=== PATIENT | female | born 1935 | race Caucasian/White ===

== ENCOUNTER 2018-01-08 09:53 | Outpatient (CLI) | payer MEDICARE, OTHER, SELFPAY ==
[2018-01-08 13:12] LABS: Bilirubin Negative (Negative); Blood Negative (Negative); Clarity Clear; Glucose Negative (Negative); Ketones Negative (Negative); Leukocyte Esterase Trace (Negative); Nitrite Positive (Negative); Specific Gravity 1.015 (1.005-1.025); Urobilinogen 0.2 EU/dL (Up TO 0.2)
[2018-01-08 13:21] LABS: Bacteria Moderate HPF (Negative); C & S Indicated? Yes; Casts Negative LPF (Negative); Crystals Negative HPF (Negative); Epithelial Cells Rare HPF (Negative); Mucus Negative (Negative); Other Cells Few Transitional (Negative); RBC Negative (0-2); WBC 20-50 HPF (0-5)
[2018-01-08 13:34] LABS: Anion Gap 7.5 mmol/L (3-11); BUN 20 mg/dL (7-18); CO2 30.5 mmol/L (21.0-32.0); CREATININE 0.94 mg/dL (0.55-1.02); Calcium 8.8 mg/dL (8.5-10.1); Chloride 102 mmol/L (98-107); Cholesterol 187 mg/dL (50-200); Glucose 70 mg/dL (70-100); HDL Cholesterol 53 mg/dL (40-60); LDL CHOLESTEROL 122 mg/dL (<100); Potassium 4.3 mmol/L (3.5-5.1); Sodium 140 mmol/L (136-145); Triglyceride 74 mg/dL (30-150)
== END 2018-01-08 10:13 ==
PROVIDERS: PCP Family Medicine; Visit Provider Family Medicine
DX: I10 Essential (primary) hypertension (principal); N39.46 Mixed incontinence
CPT/HCPCS: 36415; 80048; 80061; 83721; 87077; 81003; 81015; 87086; 87186

== ENCOUNTER 2018-05-05 20:22 | Outpatient (REF) | payer MEDICARE, OTHER, SELFPAY ==
[2018-05-05 20:42] LABS: Bilirubin Negative (Negative); Blood Negative (Negative); Clarity Clear; Glucose Negative (Negative); Ketones Trace mg/dL (Negative); Leukocyte Esterase Large (Negative); Nitrite Negative (Negative); Specific Gravity 1.015 (1.005-1.025); Urobilinogen 0.2 EU/dL (Up TO 0.2); pH 5.5 (5-8)
[2018-05-05 22:32] LABS: WBC >50 HPF (0-5)
[2018-05-05 22:33] LABS: Bacteria Many HPF (Negative); C & S Indicated? Yes; Casts Negative LPF (Negative); Crystals Negative HPF (Negative); Epithelial Cells Negative HPF (Negative); Mucus Negative (Negative)
== END 2018-05-05 20:42 ==
LOC: LBN 20:22
PROVIDERS: PCP Family Medicine
DX: N39.0 Urinary tract infection, site not specified (principal)
CPT/HCPCS: 87077; 81003; 81015; 87086; 87186

== ENCOUNTER 2018-07-08 11:26 | Outpatient (REF) | payer MEDICARE, OTHER, SELFPAY | END 2018-07-08 11:46 | LOC: LBN 11:26 | PROVIDERS: PCP Family Medicine; Visit Provider Family Medicine | DX: R30.0 Dysuria (principal) | CPT/HCPCS: 87077; 87086; 87186 ==

== ENCOUNTER → 2018-09-04 12:32 | Outpatient (BNVA) | payer MEDICARE, OTHER, SELFPAY | PROVIDERS: PCP Family Medicine; Referring Provider Family Medicine; Visit Provider Urology | DX: I10 Essential (primary) hypertension (principal); N36.42 Intrinsic sphincter deficiency (ISD); Z87.440 Personal history of urinary (tract) infections; J44.9 Chronic obstructive pulmonary disease, unspecified | CPT/HCPCS: 99213 ==

== ENCOUNTER 2018-09-10 10:00 | Day surgery (SDC) | payer MEDICARE, OTHER, SELFPAY ==
[2018-09-10 10:20] VITALS: BP 118/60; PULSE 63; RESP 16; TEMP 36.5; O2SAT 95
[2018-09-10] MEDS: Sulfameth/Trimeth DS TAB 1 TAB PO (10:37)
[2018-09-10] MEDS: Lactated Ringers 1,000 ML 80 ML IV (10:46)
--- NOTE | 2018-09-10 12:19 | W.PM.DSUDISC ---
Discharge Plan Disposition Patient Disposition: HOME Condition: Stable Discharge Details Attending Provider: Ankit Triplett Primary Care Provider: Sana Camejo Home Meds and New Rx's Prescriptions: No Action simvastatin 5 mg tablet 5 mg PO DAILY Qty: 90 RF: 3 albuterol sulfate 90 mcg/actuation HFA aerosol inhaler 1 - 2 inh IH Q6H PRN (Reason: shortness of breath or wheezing) Qty: 8.5 RF: 0 metoprolol tartrate 50 MG tablet 50 mg PO BID Qty: 180 RF: 4 PreserVision AREDS 1 TAB tablet 1 tab PO BID RF: 0 Discharge Instructions Additional Instructions: No F/U appt to schedule but ask pt to call my office @ 1 week to give us a progress report Activity:: Activity as Tolerated Shower/Bathe:: 24 hours Diet:: As Tolerated Discharge Orders Discharge Orders: Discharge Order (Routine); Ordered 09/10/18 Ordered By: Ankit Triplett DS: Diagnosis Discharge Diagnosis (1) Intrinsic sphincter deficiency: Status: Acute
[2018-09-10 14:05] VITALS: BP 116/56; PULSE 62; RESP 22; TEMP 36.4; O2SAT 96
--- NOTE | 2018-09-11 06:55 | ROE_ITS ---
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 PROCEDURE Cystoscopy, transurethral injection of Coaptite. SURGEON Ankit Triplett M.D. ANESTHESIA MAC with local. COMPLICATIONS None. HISTORY This is an 83-year-old woman who has a long history of urinary incontinence. She has had a workup at [facility] previously and was identified as having intrinsic sphincter deficiency. She has had one inj ection of a bulking agent previously. She presents now for repeat injection. DESCRIPTION OF PROCEDURE The patient was brought to the Operating Room on 09/10/18. She was given oral antibiotics, which was t hen followed by Monitored Anesthesia Care. She was placed in the dorsal lithotomy position. Her genit derek was prepped and draped. A #20-Maur[place] urethrotome sheath was passed through the urethra into the bladder. The bladder neck was entered using a transurethral injection system. We injected one vial of Coaptite submucosally. This appeared to result in excellent coaptation of the bladder neck mucosa. The bladder was drained using a straight catheter. The patient tolerated the procedure well with no c omplications.
== END 2018-09-10 14:26 | disposition home or self-care (01) ==
PROVIDERS: PCP Family Medicine; Visit Provider Urology
PROC: (CPT 51715; principal; 2018-09-10 12:00)
DX: N36.42 Intrinsic sphincter deficiency (ISD) (principal); N39.498 Other specified urinary incontinence; I10 Essential (primary) hypertension
CPT/HCPCS: 51715; L8606

== ENCOUNTER → 2018-09-15 14:14 | Outpatient (BNVA) | payer MEDICARE, OTHER, SELFPAY | PROVIDERS: PCP Family Medicine; Visit Provider Urology | DX: N36.42 Intrinsic sphincter deficiency (ISD) (principal); Z98.890 Other specified postprocedural states; I10 Essential (primary) hypertension | CPT/HCPCS: 51798; 99212; 99213 ==

== ENCOUNTER 2019-01-05 18:53 | Outpatient (REF) | payer MEDICARE, OTHER, SELFPAY ==
[2019-01-05 20:24] LABS: Bilirubin Negative (Negative); Blood Trace-intact (Negative); Clarity Cloudy (Clear); Glucose Negative (Negative); Ketones Negative (Negative); Leukocyte Esterase Large (Negative); Nitrite Positive (Negative); Specific Gravity <= 1.005 (1.005-1.025); Urobilinogen 0.2 EU/dL (Up TO 0.2); pH 6.5 (5-8)
[2019-01-05 21:40] LABS: Bacteria Many HPF (Negative); C & S Indicated? Yes; Casts Negative LPF (Negative); Crystals Negative HPF (Negative); Epithelial Cells Negative HPF (Negative); Mucus Negative (Negative); RBC Negative (0-2); WBC >50 HPF (0-5)
== END 2019-01-05 19:13 ==
LOC: LBN 18:53
PROVIDERS: PCP Family Medicine
DX: R30.0 Dysuria (principal)
CPT/HCPCS: 87077; 81003; 81015; 87086; 87186

== ENCOUNTER 2019-01-14 07:00 | Outpatient (CLI) | payer MEDICARE, OTHER, SELFPAY ==
[2019-01-14 13:20] LABS: ALT 33 U/L (14-59); AST 20 U/L (15-37); Albumin 3.8 g/dL (3.4-5.0); Alkaline Phosphatase 128 U/L (46-116); Anion Gap 6.4 mmol/L (3-11); BUN 26 mg/dL (7-18); Bilirubin, Total 0.3 mg/dL (0.2-1.0); CO2 30.6 mmol/L (21.0-32.0); CREATININE 1.17 mg/dL (0.55-1.02); Calcium 9.3 mg/dL (8.5-10.1); Chloride 100 mmol/L (98-107); Glucose 87 mg/dL (70-100); Potassium 5.9 mmol/L (3.5-5.1); Sodium 137 mmol/L (136-145); Total Protein 7.1 g/dL (6.4-8.2)
== END 2019-01-14 07:20 ==
PROVIDERS: PCP Family Medicine; Visit Provider Family Medicine
DX: I10 Essential (primary) hypertension (principal)
CPT/HCPCS: 36415; 80053

== ENCOUNTER 2019-02-01 08:12 | Outpatient (CLI) | payer MEDICARE, OTHER, SELFPAY ==
[2019-02-01 12:55] LABS: ALT 30 U/L (14-59); AST 22 U/L (15-37); Albumin 3.6 g/dL (3.4-5.0); Alkaline Phosphatase 117 U/L (46-116); Anion Gap 7.3 mmol/L (3-11); BUN 21 mg/dL (7-18); Bilirubin, Total 0.5 mg/dL (0.2-1.0); CO2 30.7 mmol/L (21.0-32.0); Calcium 8.8 mg/dL (8.5-10.1); Chloride 104 mmol/L (98-107); Estimated GFR 53.21 (mL/min/1.73m2); Glucose 150 mg/dL (70-100); Potassium 4.7 mmol/L (3.5-5.1); Sodium 142 mmol/L (136-145); Total Protein 6.6 g/dL (6.4-8.2)
== END 2019-02-01 08:32 ==
PROVIDERS: PCP Family Medicine; Visit Provider Family Medicine
DX: E87.5 Hyperkalemia (principal)
CPT/HCPCS: 36415; 80053

== ENCOUNTER 2019-06-21 18:11 | Emergency (ER) | payer MEDICARE, OTHER, SELFPAY ==
[2019-06-21 18:13] VITALS: BP 163/80; PULSE 78; RESP 18; TEMP 36.9; O2SAT 96
--- NOTE | 2019-06-21 18:30 | DI.CT_ITS ---
EXAM: CT CHEST/ABD/PEL W CLINICAL HISTORY: epigastric and abd pain, pain after eating, nausea COMPARISON: ABD PELVIS WITH CONTRAST from 12/24/2016 FINDINGS: CT examination of the chest, abdomen, and pelvis was performed with intravenous infusion of 100 cc of Omnipaque 350. Note is made of metallic fixation apparatus of the pubic rami. There has been a jessie or cholecystectomy. The lungs show small focal areas of atelectasis or scarring. Small nonspecific areas of tree in bud opacity in the right lung base, of uncertain etiology. No focal consolidation. No pleural effusion. No evidence of pulmonary embolic disease. Thoracic aorta shows no evidence of dissection or aneury sm. Tracheobronchial tree appears intact. No mediastinal or hilar adenopathy. Liver is unremarkable in appearance. Slight prominence of bile ducts consistent with prior cholecyst ectomy. Unremarkable appearance of the pancreas. Incidental superior pole splenic cyst noted. Incidental small left renal cyst noted. No evidence of urinary tract calcification or obstruction. Unremarkable appearance of the adrenals. Abdominal aorta is of normal diameter. There is calcified atheromatous plaque. 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 SMA and renal arteries grossly unremarkable. OLIVIA appears patent. No abdominal or pelvic adenopathy. Appendix is normal. No evidence of bowel obstruction or divertic ulitis. IMPRESSION: No evidence of acute process. Minimal tree-in-bud opacities right lung base, minimal acute pneumonia not excluded but no gross consolidation seen. Please correlate clinically.
[2019-06-21] MEDS: Normal Saline Flush 10 ML SYR IVP (18:40)
[2019-06-21 18:52] LABS: Bilirubin Negative (Negative); Blood Negative (Negative); Clarity Clear (Clear); Glucose Negative (Negative); Ketones Negative (Negative); Leukocyte Esterase Trace (Negative); Nitrite Negative (Negative); Urobilinogen 0.2 EU/dL (Up TO 0.2); pH 5.5 (5-8)
[2019-06-21] MEDS: Normal Saline 1,000 ML 1000 ML IV (18:55)
[2019-06-21 18:56] LABS: Bacteria Negative HPF (Negative); C & S Indicated? Yes; Casts Negative LPF (Negative); Crystals Negative HPF (Negative); Epithelial Cells Negative HPF (Negative); Mucus Negative (Negative); Other Cells Few Renal (Negative); RBC Negative HPF (0-2)
[2019-06-21] MEDS: Ondansetron 4 MG/2 ML VIAL IVP (18:59)
[2019-06-21 19:07] LABS: Abs Immature Grans 0.02 k/cumm (0.0-0.09); Absolute Basophil Count 0.02 k/cumm (0.0-0.2); Absolute Eosinophil Count 0.02 k/cumm (0.0-0.7); Absolute Lymphocyte Count 1.56 k/cumm (1.2-3.4); Absolute Monocyte Count 0.84 k/cumm (0.11-0.7); Absolute Neutrophil Count 5.16 k/cumm (1.2-6.7); Basophils % 0.3; Eosinophils % 0.3; HCT 39.2 % (36.0-46.0); HGB 13.5 g/dL (12.0-15.5); Immature Grans % 0.3 %; Lymphocytes % 20.5; Mean Corp. HGB Concentration 34.4 g/dL (32.0-36.0); Mean Corpuscular Hemoglobin 30.7 pg (27.0-33.0); Mean Corpuscular Volume 89.1 fL (80-95); Mean Platelet Volume 11.4 fL (8.0-11.0); Neutrophils % 67.6; Platelet Count 185 x1000/uL (130-400); RBC Distribution Width 12.4 % (11.7-14.6); White Blood Cell Count 7.62 k/cumm (4.4-10.8)
[2019-06-21 19:20] LABS: ALT 30 U/L (14-59); AST 26 U/L (15-37); Albumin 4.2 g/dL (3.4-5.0); Alkaline Phosphatase 114 U/L (46-116); Anion Gap 7.1 mmol/L (3-11); BUN 12 mg/dL (7-18); Bilirubin, Total 0.7 mg/dL (0.2-1.0); CO2 28.9 mmol/L (21.0-32.0); Calcium 9.2 mg/dL (8.5-10.1); Chloride 94 mmol/L (98-107); Estimated GFR 53.08 (mL/min/1.73m2); Glucose 93 mg/dL (74-106); Lipase 247 U/L (73-393); Potassium 4.2 mmol/L (3.5-5.1); Sodium 130 mmol/L (136-145); Total Protein 7.6 g/dL (6.4-8.2)
[2019-06-21 19:21] LABS: Troponin I < 0.05 ng/Ml (<0.06)
--- NOTE | 2019-06-21 19:25 | W.ED.GENAD ---
Discharge Plan Disposition Patient Disposition: HOME Condition: Stable Discharge Details Chief Complaint: Abd Prob Clinical Impression: Nausea, Hyponatremia, Enteritis Primary Care Provider: Sana Camejo ED Provider: Azalia Moore Home Meds and New Rx's Prescriptions: New sucralfate [Carafate] 1 gram tablet 1 gm PO BID Qty: 20 RF: 0 No Action simvastatin 5 mg tablet 5 mg PO DAILY Qty: 90 RF: 3 acetaminophen 325 mg tablet 325 - 650 mg PO Q4H PRN (Reason: fever or pain) Qty: 90 RF: 1 polyethylene glycol 3350 [Miralax] 17 gram/dose powder 17 gm PO DAILY PRN (Reason: constipation) Qty: 238 RF: 2 albuterol sulfate 90 mcg/actuation HFA aerosol inhaler 1 - 2 inh IH Q6H PRN (Reason: shortness of breath or wheezing) Qty: 8.5 RF: 6 omeprazole 40 mg capsule,delayed release(DR/EC) 40 mg PO DAILY Qty: 30 RF: 1 ondansetron HCl 4 mg tablet 4 mg PO Q8H PRN (Reason: nausea and vomiting) Qty: 10 RF: 0 metoprolol tartrate 50 mg tablet 50 mg PO BID Qty: 180 RF: 4 PreserVision AREDS 1 TAB tablet 1 tab PO BID RF: 0 sucralfate 1 gram Tablet 1 g PO BID RF: 0 magnesium 30 mg Tablet 40 mg PO DAILY RF: 0 Discharge Instructions Instructions: Hyponatremia (ED), Abdominal Pain (ED) Additional Instructions: Follow-up with your primary care doctor for recheck this week. Please follow-up with your sodium abnormalities in your labs, which will require repeat labs. Follow-up with your CT abnormalities which are incidental. Continue your omeprazole. Continue your nausea medication. Add Carafate twice daily as discussed. You may require additional outpatient testing as discussed. Return to the emergency room for any alarming symptoms, worsening or concerns sooner if needed Referrals: Manda Pichardo MD [ [facility] STAFF PHYSICIAN] - Medical Decision Making This is a pleasant 84-year-old patient presenting for complaints of abdominal pain. Patient reports increasing abdominal pain last few days. Patient reports sensation of early satiety. Patient reports mild discomfort after eating. Patient denies any obvious change her bowels however has not moved her bowels in the last 2 days. Patient reports this is not totally typical of her pattern sometimes she will move her bowels 2-3 times a day than others times she will go a few days between movements. Patient denies any diarrhea. Patient does report dry heaving frequently for the last 2 weeks. Patient denies any obvious pattern to timing of dry heaving or association with eating. Patient denies active vomiting. Patient does report baseline nausea which she has been taking Zofran prescribed by PCP for which has been on relieving of her nausea. Patient denies any headache or dizziness. She does report vague malaise and a shaky sensation but denies obvious chills or fever. Patient denies any focal weakness. Patient denies focal chest or back pain. Denies any shortness of breath or difficulty breathing. She does report a history of COPD which has been well controlled recently. Denies any new cough. No upper respiratory symptoms. Patient does report hesitancy with urination. She does not report a strong urinary stream but a trickling stream but denies dysuria, urgency or hematuria. Patient denies any other concerns or complaints at this time. Patient reports symptoms have been insidious in the last few weeks. Patient did report waking at night with tremors she describes as a shaking but no associated sweating or fever. Patient's family called prior to arrival for concern of bowel obstruction. On physical exam patient does appear well-hydrated. Is in no apparent distress at this time. Breath sounds are clear, cardiac evaluation unremarkable. No distal edema present. Patient's respiratory effort is easy and unlabored. On exam patient does have mild epigastric as well as suprapubic and left-sided abdominal pain with palpation. No obvious peritoneal signs, rebound or guarding. Given patient's complaints of sensation of early satiety after eating and onset of pain after eating will check CT chest abdomen and pelvis. Will check baseline labs in addition to troponin given patient's epigastric complaints. We will plan to hydrate patient with 1 L of fluid. Will check urinalysis. Patient declines any pain medication needs at this time. Will reassess. EKG reveals a heart rate of 65, sinus rhythm. No obvious ST segment changes. Seems unchanged compared to previous on 12/23/[address] Meeyrs Labs reviewed. Patient's white blood cell count is normal. Patient does have mild hyponatremia noted at 130. This is somewhat decreased from her baseline. The remainder of patient's electrolytes are unremarkable. Patient has no gait disturbances, no recent falls, no concentration difficulties or cognitive deficit patient has no confusion or headache. I doubt patient's nausea is the result of hyponatremia however will recommend she follow-up with her PCP for repeat labs, as this is a change from her baseline. Patient's kidney function remains normal. Patient has a steady gait, ambulated from the bed multiple times to use the bathroom. Patient ports urinating without difficulty at this time. Patient's urinalysis reveals trace leukocyte esterase. Culture indicated. Renal cells were noted. Patient CT reveals areas of atelectasis suggested bilaterally. Minor tree-in-bud type infiltrative change in the central aspect of the right lower lobe. Nonspecific 2 mm nodule as well as a subpleural nodule present reported as subpleural rounded granulomatous type. Cardiomegaly. Old rib fractures. Small bowel pattern suggesting mild enteritis. No mechanical obstruction. Diverticulosis without evidence of acute diverticulitis. Previous hysterectomy and cholecystectomy. Degenerative lumbar changes. Atherosclerotic abdominal aorta without aneurysmal change or significant mesenteric arterial stenosis. These findings were discussed with patient. We did discuss the potential for antibiotic treatment for the tree-in-bud finding on the right lung however patient has no cough, shortness of breath, chest pain or fever and does not feel antibiotic is warranted at this time. Would prefer follow-up with PCP. Patient's vital signs reviewed. Blood pressure 141/66, heart rate O2 saturation respiratory rate and temperature normal. Checked on the patient and she was comfortably laying in bed reading a book. Discussed discharge planning with the patient. We discussed patient's results, possibility of enteritis, mild hyponatremia, plan for follow-up with PCP. Patient's predominant complaints in the emergency room tomorrow nausea, upper abdominal pain. Patient does report she has had a colonoscopy [address] Pichardo locally she had multiple cancerous polyps removed. Patient reports she did discuss the abdominal pain and nausea with her PCP and they did begin omeprazole this week. I reviewed patient's medication list and she no longer has sucralfate which she was previously taking. I will replace this prescription tonight. We discussed the possibility of need for upper endoscopy as an outpatient for further evaluation of your upper abdominal complaints. Enteritis possible viral causes recently a possible etiology of patient's symptoms. I have encouraged patient to promptly follow-up with your PCP for reevaluation, repeat lab work and coordinate further outpatient evaluation including possible EGD to identify further causes of her nausea and upper abdominal pain. Patient agrees with this plan of care. We did at length discussed signs and symptoms for which she should return. Patient reports her understanding. Patient again mentioned the tremor she noted at night. Will add blood cultures to be sure there is no other source of infection however patient has been afebrile in the emergency room and has no elevation of her white blood cell count therefore I feel this is unlikely. Patient does not appear septic or ill at this time. Patient agrees with plan of outpatient management of her symptoms and does not feel she needs admission to the hospital at this time. Would prefer to return for any worsening of her symptoms or alarming symptoms. I agree with this plan of care. The patient was stable and requested discharge. Prior to discharge, my usual and customary return precautions were reviewed with the patient - this included follow-up instructions and reasons to return to the Emergency Department if conditions worsens, does not improve as expected, or other new concerns arise. HPI General Date/Time Provider Initiated Documentation: 06/21/19 18:13. HPI Narrative: This is an 84-year-old patient presenting for complaints of epigastric and abdominal pain. Patient reports for the last several weeks she has had discomfort after eating. Patient reports worse in the last few days. Patient reports epigastric discomfort and mild lower abdominal pain intermittently. Patient reports approximately 2 weeks of dry heaving intermittently. No obvious pattern recognizable to the timing of her dry heaving. Patient denies active vomiting. Patient does report when she swallows food thereafter she notes increased abdominal pain however she denies any regurgitation of food. Patient does report persistent nausea despite use of nausea medication provided by PCP. Patient denies obvious headache or dizziness. Patient does report mild weakness and feeling of shakiness. Patient denies any obvious blood with bowel movements. Patient reports no BM in 2 days. Patient reports this is not totally typical of her pattern. Patient does report hesitancy with urination and a trickling stream of urine. Denies any obvious urgency, frequency or dysuria. Patient denies any back pain. Patient denies any cough or shortness of breath. Denies any measured fevers or chills. Patient's family called concerned with the possibility of a bowel obstruction. Related Data Home Medications Medication Instructions Recorded Confirmed PreserVision AREDS 1 tab PO BID 05/25/12 06/21/19 simvastatin 5 mg tablet 5 mg PO DAILY #90 tab-cap 07/08/18 06/21/19 metoprolol tartrate 50 mg tablet 50 mg PO BID #180 tab-cap 12/30/18 06/21/19 albuterol sulfate 90 mcg/actuation 1 - 2 inh IH Q6H PRN #8.5 gm 01/14/19 06/21/19 aerosol inhaler acetaminophen 325 mg tablet 325 - 650 mg PO Q4H PRN #90 tab 03/04/19 06/21/19 omeprazole 40 mg capsule,delayed 40 mg PO DAILY #30 cap 06/14/19 06/14/19 release ondansetron HCl 4 mg tablet 4 mg PO Q8H PRN #10 tab 06/14/19 06/21/19 polyethylene glycol 3350 17 17 gm PO DAILY PRN #238 gm 06/18/19 06/21/19 gram/dose oral powder magnesium 40 mg PO DAILY 06/21/19 06/21/19 sucralfate 1 g PO BID 06/21/19 06/21/19 sucralfate [Carafate] 1 gm PO BID #20 tab 06/21/19 Previous Rx's Medication Instructions Recorded simvastatin 5 mg tablet 5 mg PO DAILY #90 tab-cap 07/08/18 metoprolol tartrate 50 mg tablet 50 mg PO BID #180 tab-cap 12/30/18 albuterol sulfate 90 mcg/actuation 1 - 2 inh IH Q6H PRN #8.5 gm 01/14/19 aerosol inhaler acetaminophen 325 mg tablet 325 - 650 mg PO Q4H PRN #90 tab 03/04/19 omeprazole 40 mg capsule,delayed 40 mg PO DAILY #30 cap 06/14/19 release ondansetron HCl 4 mg tablet 4 mg PO Q8H PRN #10 tab 06/14/19 polyethylene glycol 3350 17 17 gm PO DAILY PRN #238 gm 06/18/19 gram/dose oral powder sucralfate [Carafate] 1 gm PO BID #20 tab 06/21/19 Allergies Allergy/AdvReac Type Severity Reaction Status Date / Time ciprofloxacin [From Cipro] Allergy Intermediate Lips and Verified 12/19/19 10:23 face burn, feels shaky, arm tingly codeine AdvReac Intermediate Dizziness/L Verified 03/04/19 10:23 ightheade lovastatin AdvReac Intermediate myalgias Verified 03/04/19 10:23 oxycodone AdvReac Intermediate NAUSEA, GI Verified 03/04/19 10:23 UPSET azithromycin AdvReac cramping, Verified 06/21/19 19:01 anorexia doxycycline AdvReac Nausea, Verified 06/21/19 19:01 Vomiting hydrocodone AdvReac unknown Verified 06/21/19 19:01 General Stated Complaint: Abd Prob MELINDA: 3 Review of Systems All systems reviewed & are unremarkable except as noted in HPI and below Constitutional Constitutional: Denies chills, Reports fatigue, Denies fever(s), Denies headache(s) and Reports malaise ENT Ears, Nose, Mouth, and Throat: Denies headache(s), Denies nasal obstruction, Denies neck pain, Denies sinus pain, Denies sinus pressure and Denies sore throat Cardiovascular Cardiovascular: Denies chest pain, Denies rapid heart rate, Denies palpitations and Denies dyspnea Respiratory Respiratory: Denies cough, Denies dyspnea and Denies wheezing Gastrointestinal Gastrointestinal: Reports abdominal pain, Denies bloating, Reports constipation (x2 days), Denies excessive flatus, Denies diarrhea, Reports nausea and Denies vomiting Genitourinary Genitourinary: Denies hematuria, Denies dysuria, Reports urinary hesitancy and Denies urinary urgency Musculoskeletal Musculoskeletal: Denies back pain, Denies neck pain, Denies numbness and Denies tingling Neurologic Neurologic: Denies headache(s), Denies numbness and Denies tingling Endocrine Endocrine: Reports fatigue and Denies palpitations Allergic/Immunologic Allergic/Immunologic: Denies wheezing [facility] Medical History Atrophic vaginitis (Acute 08/19/11) Pt. states she is unsure Depression Essential hypertension Family history of GI malignancy GERD (gastroesophageal reflux disease) Hx of fracture of pelvis (Acute) pt. states she shattered her pelvis in 1970's Hyperlipidemia Macular degeneration (Acute) Mixed incontinence (Acute 08/19/11) [facility] [place] pessary Surgical History Abdominal hysterectomy Arthroplasty of knee (05/27/12) LEFT - Pt denies knee replacement Bilateral salpingectomy with oophorectomy Bladder Surgery Cholecystectomy Colonoscopy - MAC (~02/2012) Colonoscopy - MAC (04/22/17) EGD - MAC (04/22/17) KNEE SURGERY (~05/2012) Family History (Updated 01/20/19 @ 10:51 by Skyler Swann) Mother , AGE 84 Heart disease Father , AGE 87 Stroke Heart disease Cancer Sister Stroke Brother Alcohol abuse Cancer Brother Cancer of kidney Son Hyperlipidemia Pulmonary disease Daughter Thyroid disease Daughter Cancer s/p hysterectomy Daughter No problems noted. Daughter No problems noted. Brother No problems noted. Maternal Grandfather No problems noted. Paternal Grandfather No problems noted. Maternal Grandmother No problems noted. Paternal Grandfather No problems noted. Social History Smoking/Tobacco Use Status: Former Tobacco Use Quit Date: 03/17/97 Second Hand Exposure: Yes Alcohol Intake: never Drug use: Never Substance use type: does not use Caregiver/Support person: No Household members: none Housing: house Communication Needs: Hard of Hearing and Corrective Lenses Pets and animals: Yes Pets and animals: dog(s) Sexually active: No Do you think of yourself as: straight/heterosexual Current gender identity: female What is your relationship status?: How often do you talk on the phone with friends or family?: decline to answer How often do you get together with friends or relatives?: decline to answer How often do you attend shinto or anabaptism services?: decline to answer Do you belong to any clubs or organized social groups?: decline to answer Panel score (0-1 are the most socially isolated patients): 0 What type of physical activity do you participate in: none Frequency: does not exercise Carri/Restorationist: Buddhist Special carri needs: No Seatbelt use: always Helmet use: No 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 Well hydrated. Alert and oriented. HENMT: Head nomocephalic, normal to inspection. Atraumatic. Hearing grossly normal. External ear canal no erythema or swelling. TM normal bilaterally. Nose normal to inspection. No rhinnorhea. Normal facial exam. Oral mucosa normal. Tounge normal. Dentition normal. Normal posterior oropharynx. Uvula midline. EYES: General normal appearance. Alignment normal. Eyelids normal. Conjunctiva normal. Sclera normal. PERRL. NECK: Normal visual inspection. FROM. No lymphadenopathy. Trachea midline. No Midline tenderness. CHEST: Normal insepection of the chest. RESP: Normal respiratory effort. Speaking full sentences. No cough. No wheezing. No retractions. Clear to auscaltation. Breath sound equal and present bilaterally. CARDIO: No JVD. Normal PMI. Regular Rate. Regular Rhythm. Normal peripheral pulses. GI: Normal inspection of abdomen. No distension. Soft. Mild epigastric discomfort. Mild suprapubic discomfort as well as left lower quadrant pain with palpation. Bowel sounds present in all 4 quadrants. No rebound. No gaurding. MUSCULOSKELETAL: Normal Gait. FROM of all extremities. Distal neurovascularly intact. Sensation intact distally. No lower leg edema SKIN: Normal. Dry. No rashes. NEURO: Alert and awake. Speech clear. PSYCH: Normal affect. Cooperative. Course Vital Signs Vital signs: Vital Signs Temperature 36.9 C 06/21/19 18:13 Pulse 78 06/21/19 18:13 Respiratory Rate 18 06/21/19 18:13 Blood Pressure 163/80 H 06/21/19 18:13 Pulse Oximetry 96 06/21/19 18:13 Temperature 36.9 C 06/21/19 18:13 Temperature Source Skin 06/21/19 18:13 Pulse 78 06/21/19 18:13 Respiratory Rate 18 06/21/19 18:13 Respiratory Effort 06/21/19 19:04 Blood Pressure 163/80 H 06/21/19 18:13 Blood Pressure Position Sitting 06/21/19 18:13 Pulse Oximetry 96 06/21/19 18:13 Oxygen Delivery Method Room Air 06/21/19 18:13 Oxygen Flow Rate 0 06/21/19 18:13 Pain Level 5 06/21/19 19:06 Lab/Test Results Lab/Test Results: 06/21/19 18:40 Urine - Reflex from Ua Urine Culture - Pending Laboratory Tests Range/Units 04/09/0306/21/19 06/21/19 18:40 18:45 18:45 WBC (4.4-10.8) k/cumm RBC (4.00-5.20) m/cumm Hgb (12.0-15.5) g/dL Hct (36.0-46.0) % MCV (80-95) fL MCH (27.0-33.0) pg MCHC (32.0-36.0) g/dL RDW (11.7-14.6) % Plt Count (130-400) x1000/uL MPV (8.0-11.0) fL Immature Gran % % Neutrophils % Lymphocytes % Monocytes % Eosinophils % Basophils % Absolute Neutrophils (1.2-6.7) k/cumm Absolute Lymphocytes (1.2-3.4) k/cumm Absolute Monocytes (0.11-0.7) k/cumm Absolute Eosinophils (0.0-0.7) k/cumm Absolute Basophils (0.0-0.2) k/cumm Sodium (136-145) mmol/L 130 L Potassium (3.5-5.1) mmol/L 4.2 Chloride (98-107) mmol/L 94 L Carbon Dioxide (21.0-32.0) mmol/L 28.9 Anion Gap (3-11) mmol/L 7.1 BUN (7-18) mg/dL 12 Creatinine (0.55-1.02) mg/dL 1.00 Estimated GFR/1.73 m2 (mL/min/1.73m2) 53.08 Glucose (74-106) mg/dL 93 Lactate (0.6-1.4) mmol/L 1.0 Calcium (8.5-10.1) mg/dL 9.2 Total Bilirubin (0.2-1.0) mg/dL 0.7 AST (15-37) U/L 26 ALT (14-59) U/L 30 Alkaline Phosphatase (46-116) U/L 114 Troponin I (<0.06) ng/Ml < 0.05 Total Protein (6.4-8.2) g/dL 7.6 Albumin (3.4-5.0) g/dL 4.2 Lipase (73-393) U/L 247 Urine Color (Yellow) Yellow Urine Clarity (Clear) Clear Urine pH (5-8) 5.5 Ur Specific [place] (1.005-1.025) 1.010 Urine Protein (Negative) mg/dL Negative Urine Ketones (Negative) mg/dL Negative Urine Blood (Negative) Negative Urine Nitrite (Negative) Negative Urine Bilirubin (Negative) Negative Urine Urobilinogen (Up TO 0.2) EU/dL 0.2 Ur Leukocyte Esterase (Negative) Trace H Urine RBC (0-2) HPF Negative Urine WBC (0-5) HPF 3-5 Ur Epithelial Cells (Negative) HPF Negative Urine Crystals (Negative) HPF Negative Urine Bacteria (Negative) HPF Negative Urine Casts (Negative) LPF Negative Urine Mucus (Negative) Negative Urine Other (Negative) Few renal Ur Culture Indicated? Yes Urine Glucose (Negative) mg/dL Negative Range/Units 06/21/19 18:45 WBC (4.4-10.8) k/cumm 7.62 RBC (4.00-5.20) m/cumm 4.40 Hgb (12.0-15.5) g/dL 13.5 Hct (36.0-46.0) % 39.2 MCV (80-95) fL 89.1 MCH (27.0-33.0) pg 30.7 MCHC (32.0-36.0) g/dL 34.4 RDW (11.7-14.6) % 12.4 Plt Count (130-400) x1000/uL 185 MPV (8.0-11.0) fL 11.4 H Immature Gran % % 0.3 Neutrophils % 67.6 Lymphocytes % 20.5 Monocytes % 11.0 Eosinophils % 0.3 Basophils % 0.3 Absolute Neutrophils (1.2-6.7) k/cumm 5.16 Absolute Lymphocytes (1.2-3.4) k/cumm 1.56 Absolute Monocytes (0.11-0.7) k/cumm 0.84 H Absolute Eosinophils (0.0-0.7) k/cumm 0.02 Absolute Basophils (0.0-0.2) k/cumm 0.02 Sodium (136-145) mmol/L Potassium (3.5-5.1) mmol/L Chloride (98-107) mmol/L Carbon Dioxide (21.0-32.0) mmol/L Anion Gap (3-11) mmol/L BUN (7-18) mg/dL Creatinine (0.55-1.02) mg/dL Estimated GFR/1.73 m2 (mL/min/1.73m2) Glucose (74-106) mg/dL Lactate (0.6-1.4) mmol/L Calcium (8.5-10.1) mg/dL Total Bilirubin (0.2-1.0) mg/dL AST (15-37) U/L ALT (14-59) U/L Alkaline Phosphatase (46-116) U/L Troponin I (<0.06) ng/Ml Total Protein (6.4-8.2) g/dL Albumin (3.4-5.0) g/dL Lipase (73-393) U/L Urine Color (Yellow) Urine Clarity (Clear) Urine pH (5-8) Ur Specific [place] (1.005-1.025) Urine Protein (Negative) mg/dL Urine Ketones (Negative) mg/dL Urine Blood (Negative) Urine Nitrite (Negative) Urine Bilirubin (Negative) Urine Urobilinogen (Up TO 0.2) EU/dL Ur Leukocyte Esterase (Negative) Urine RBC (0-2) HPF Urine WBC (0-5) HPF Ur Epithelial Cells (Negative) HPF Urine Crystals (Negative) HPF Urine Bacteria (Negative) HPF Urine Casts (Negative) LPF Urine Mucus (Negative) Urine Other (Negative) Ur Culture Indicated? Urine Glucose (Negative) mg/dL
[2019-06-21] MEDS: Omnipaque 350 MG/ML 100 ML BTL IJ (19:56)
[2019-06-21] MEDS: Normal Saline - Diluent 50 ML VIAL IV (19:57)
--- NOTE | 2019-06-21 20:32 | DI.VRAD_ITS ---
PROCEDURE INFORMATION: Exam: CT Chest With Contrast Exam date and time: 06/21/2019 6:33 PM Age: 84 years old Clinical indication: Abdominal pain; Other: Epigastric pain; Prior surgery; Patient HX: Epigastric and abd pain; Pain after eating; Nausea TECHNIQUE: Imaging protocol: Computed tomography of the chest with intravenous contrast. COMPARISON: CT ABD PELVIS WITH CONTRAST 12/24/2016 1:49 AM FINDINGS: Lungs: Mild atelectatic consolidation in the medial segment of the right middle lobe and the lingular segment of the left upper lobe. Area of scarring in the mid lateral left upper lobe. Biapical lung scarring. Mild tree-in-bud infiltrative changes in the central right lower lobe. Nonspecific 2 mm nodule in the lateral subpleural right lower lobe on series 5, image 30. Additional right lateral 5 mm subpleural nodule in the mid right upper lobe. These both appear to represent benign subpleural granulomas. Pleural space: No pleural effusion. Heart: Mild to moderate cardiomegaly. Coronary artery atherosclerotic disease. No pericardial effusion. Aorta: Unremarkable. No aortic aneurysm. Lymph nodes: Unremarkable. No enlarged lymph nodes. Bones/joints: Multiple old healed right rib fractures. Soft tissues: Unremarkable. IMPRESSION: 1. Areas of atelectatic lung features and scarring suggested bilaterally. 2. Minor tree in bud type infiltrative change in the central aspect of the right lower lobe. 3. Small right sided subpleural rounded granulomatous type nodules. 4. Cardiomegaly. Coronary artery atherosclerosis. 5. Old right rib fractures which have healed. PROCEDURE INFORMATION: Exam: CT Abdomen And Pelvis With Contrast Exam date and time: 06/21/2019 6:33 PM Age: 84 years old Clinical indication: Abdominal pain; Other: Epigastric pain; Prior surgery; Patient HX: Epigastric and abd pain; Pain after eating; Nausea TECHNIQUE: Imaging protocol: Computed tomography of the abdomen and pelvis with intravenous contrast. COMPARISON: CT ABD PELVIS WITH CONTRAST 12/24/2016 1:49 AM FINDINGS: Liver: Normal. No mass. Gallbladder and bile ducts: Previous cholecystectomy. No biliary dilatation. No choledocholithiasis. Pancreas: Normal. No ductal dilation. Spleen: Superior aspect 10 mm low-attenuation focus consistent with a cyst. This was present in 2017. . No splenomegaly. Adrenals: Nonspecific mild bilateral fullness of the adrenal limbs. This could represent adrenal hyperplasia. No distinct nodule. No mass. Kidneys and ureters: Normal. No hydronephrosis. Stomach and bowel: Mild small bowel fluid retention. No mary beth bowel edema. No dilatation or obstruction. Colonic diverticulosis without evidence of acute diverticulitis. These findings may represent enteritis. There is no mechanical obstruction or significant inflammation evident. Appendix: A normal retrocecal appendix is noted. Intraperitoneal space: Unremarkable. No free air. No significant fluid collection. Vasculature: Unremarkable. No abdominal aortic aneurysm. Lymph nodes: Unremarkable. No enlarged lymph nodes. Bladder: Unremarkable as visualized. Reproductive: Previous hysterectomy. Bones/joints: Previous pelvic pubic symphysis fusion. Old right pubic rami fractures which have healed. Degenerative lumbar spine disease. Minor degenerative L4 anterolisthesis on L5. Soft tissues: Unremarkable. IMPRESSION: 1. Small bowel pattern suggesting mild enteritis. No mechanical obstruction. 2. Colonic diverticulosis without evidence of acute diverticulitis. 3. Previous hysterectomy and cholecystectomy. 4. Degenerative lumbar spine disease. 5. Atherosclerotic abdominal aorta without aneurysmal changes or significant mesenteric arterial stenosis. 6. Previous pelvic pubic ramus fusion surgery. Dictated and Authenticated by: Michi Swan MD. Ordering:FALGUNI Vieyra MD
[2019-06-21 20:51] VITALS: BP 141/66; PULSE 72; RESP 16; TEMP 36.8; O2SAT 95
--- NOTE | 2019-06-21 21:43 | NUR.NOTE ---
referred to PCP Dr. Camejo for follow up. Sent to care management. [facility] Note:
[2019-06-21 21:44] VITALS: BP 131/61; PULSE 63; RESP 16; O2SAT 95
--- NOTE | 2019-06-22 09:27 | PDOC.ERCMPRO ---
- If Service Date Differs Date of service: 06/22/19 Time of Service: 09:27 Care Management Progress Note CM notifies [facility] of patient's visit to the ER and need for follow-up appointment.
== END 2019-06-21 22:06 | disposition home or self-care (01) ==
PROVIDERS: Emergency Provider Physician Assistant; PCP Family Medicine
DX: R11.0 Nausea (principal); E87.1 Hypo-osmolality and hyponatremia; K52.9 Noninfective gastroenteritis and colitis, unspecified; K57.90 Diverticulosis of intestine, part unspecified, without perforation or abscess without bleeding; J44.9 Chronic obstructive pulmonary disease, unspecified; Z87.891 Personal history of nicotine dependence; I10 Essential (primary) hypertension
CPT/HCPCS: 36415; 74177; 80053; 83690; 87040; 87077; 93005; 96361; 96374; 99285; 71260; 81003; 81015; 83605; 84484; 85025; 87086; 87186; 93010; 99284; J2405; J3490

== ENCOUNTER 2019-06-25 01:28 | Outpatient (CLI) | payer MEDICARE, OTHER, SELFPAY ==
[2019-06-25 11:12] LABS: ALT 31 U/L (14-59); AST 26 U/L (15-37); Albumin 3.9 g/dL (3.4-5.0); Alkaline Phosphatase 109 U/L (46-116); Anion Gap 6.4 mmol/L (3-11); BUN 9 mg/dL (7-18); Bilirubin, Total 0.5 mg/dL (0.2-1.0); CO2 30.6 mmol/L (21.0-32.0); CREATININE 1.07 mg/dL (0.55-1.02); Calcium 8.9 mg/dL (8.5-10.1); Chloride 99 mmol/L (98-107); Estimated GFR 49.09 (mL/min/1.73m2); Glucose 152 mg/dL (74-106); Potassium 4.6 mmol/L (3.5-5.1); Sodium 136 mmol/L (136-145); Total Protein 6.8 g/dL (6.4-8.2)
== END 2019-06-25 01:48 ==
PROVIDERS: PCP Family Medicine; Visit Provider Family Medicine
DX: E87.1 Hypo-osmolality and hyponatremia (principal)
CPT/HCPCS: 36415; 80053

== ENCOUNTER 2019-06-27 04:52 | Emergency (ER) | payer MEDICARE, OTHER, SELFPAY ==
[2019-06-27 04:57] VITALS: BP 170/79; PULSE 78; RESP 16; TEMP 36.5; O2SAT 96
--- NOTE | 2019-06-27 05:00 | DI.CT_ITS ---
EXAM: CT ABDOMEN PELVIS WO CLINICAL HISTORY: lower abdominal pain, nausea, dry heaving. TECHNIQUE: Imaging Protocol: Axial computed tomography images with coronal and sagittal reformatted images were created and reviewed. Oral: yes / no COMPARISON: ABD PELVIS WITH CONTRAST from 12/24/2016 CT CHEST/ABD/PEL W from 06/21/2019 FINDINGS: ABDOMEN: Lung Bases: Coronary artery calcifications are seen. The heart size is normal. There are chronic ap pearing reticulonodular densities at the lung bases, not significantly changed from 2017 exam. Liver: Normal density. No measurable mass. Gallbladder and biliary tract: Status post cholecystectomy. No biliary dilation. Pancreas: Normal density, no abnormal calcifications or inflammatory process. Spleen: Normal. Kidneys: Normal size, contour and axis. No radiodense stones or obstructive uropathy. No masses seen. There is mild bilateral prominence of the renal pelves, similar to previous exams. Adrenal glands: No masses seen. Lymph nodes: Within normal limits. Abdominal Aorta: Abdominal calcified but non-dilated. PELVIS: Bladder: Symmetric distention, no gross wall thickening. Bowel: Extensive diverticulosis, greatest in the sigmoid region. No evidence of diverticulitis. No obstruction or bowel wall thickening. Peritoneal cavity: No ascites, collection or mesenteric inflammatory response. Reproductive organs: Status post hysterectomy. Bones: Pelvic hardware creating artifact. Old pelvic fracture deformities. Bones appear osteopenic. Degenerative changes are seen in the spine. IMPRESSION: Extensive diverticulosis. No evidence of diverticulitis.. DATA REPOSITORY: All CT scans at this facility are submitted to the National Radiology Data Registry (NRDR) Dose Index Registry (DIR) with the [employer] [place] [employer] (ACR). RADIATION OPTIMIZATION: All CT scans at this facility use at least one of these dose optimization te chniques: automated exposure control; mA and/or kV adjustment per patient size (includes targeted exa ms where dose is matched to clinical indication); or iterative reconstruction.
--- NOTE | 2019-06-27 05:07 | ED.GENADUL_ITS ---
Discharge Plan Disposition Patient Disposition: HOME Condition: Good Discharge Details Chief Complaint: Abd Prob Clinical Impression: Abdominal pain Primary Care Provider: Sana Camejo ED Provider: Tom Fernández Home Meds and New Rx's Prescriptions: Continued simvastatin 5 mg tablet 5 mg PO DAILY Qty: 90 RF: 3 acetaminophen 325 mg tablet 325 - 650 mg PO Q4H PRN (Reason: fever or pain) Qty: 90 RF: 1 polyethylene glycol 3350 [Miralax] 17 gram/dose powder 17 gm PO DAILY PRN (Reason: constipation) Qty: 238 RF: 2 albuterol sulfate 90 mcg/actuation HFA aerosol inhaler 1 - 2 inh IH Q6H PRN (Reason: shortness of breath or wheezing) Qty: 8.5 RF: 6 omeprazole 40 mg capsule,delayed release(DR/EC) 40 mg PO DAILY Qty: 30 RF: 1 ondansetron HCl 4 mg tablet 4 mg PO Q8H PRN (Reason: nausea and vomiting) Qty: 10 RF: 0 metoprolol tartrate 50 mg tablet 50 mg PO BID Qty: 180 RF: 4 PreserVision AREDS 1 TAB tablet 1 tab PO BID RF: 0 sucralfate 1 gram Tablet 1 g PO BID RF: 0 magnesium 30 mg Tablet 40 mg PO DAILY RF: 0 sucralfate [Carafate] 1 gram tablet 1 gm PO BID Qty: 20 RF: 0 Discharge Instructions Instructions: Abdominal Pain (ED) Additional Instructions: At this time your CT scan shows no evidence of acute surgical pathology or emergent pathology. Your laboratory work-up is reassuring, there is no signs of concerning symptoms from your heart at this time. I recommend that you stick with a bland diet for the next few weeks, continue to take the antiacid medication from her primary care provider, follow-up closely with your primary care provider in regards to potential surgical follow-up. Please drink plenty of fluids. If you notice any worsening of your symptoms, or any new symptoms such as vomiting, diarrhea, fever, chills, shortness of breath, chest pain, numbness, weakness, or fainting , please return immediately to the emergency department for reevaluation. Please follow up with your primary care provider as soon as possible for reassessment and reevaluation. As always, it was a pleasure participating in your medical care today. Referrals: Sana Camejo MD [Primary Care Provider] - Medical Decision Making This is an 84-year-old female with a past medical history of COPD, diverticulitis, hypertension, reflux, irritable bowel syndrome, who presents today for evaluation of abdominal pain. She was here about a week ago, had similar symptoms at that time, CT scan showed enteritis but was otherwise unremarkable. She did have some mild chronic hyponatremia at that time. She states that since then she got better however it last evening the pain returned and was slightly different. She is having regular soft bowel movements, she did notice a small amount of bright red blood the other day but none before or since then. She denies any vomiting but does admit to notable dry heaving. Symptoms appear to be located in the lower abdominal region in the periumbilical region. She denies any chest pain chest tightness or shortness of breath. She denies any numbness tingling or weakness. Pain is aching in nature. She denies any other complaints at this time. No other modifying factors. Surgical history is positive for cholecystectomy and hysterectomy. Currently the patient states that her abdominal pain has resolved however on exam she is notably tender in the left lower abdominal quadrants periumbilical quadrant and mildly in the right lower abdominal quadrant. Symptoms appearing consistent with cardiac etiology. Will get screening EKG and troponin out of an abundance of precaution though. She has not been drinking much, we will gently rehydrate, get a CT scan secondary to her age and risk factors. Differential signs for diverticulitis or small bowel obstruction. Enteritis is certainly on the differential but with her symptoms and risk factors I do feel that further imaging is indicated. Will treat with Bentyl, monitor closely and reassess. 6 AM The patient's laboratory work-up is returned. No significant abnormalities. EKG and troponin normal. Laboratory work-up is unremarkable. CT scan demonstrates no evidence of significant acute process, there is some mild opacities in the right middle and right lower lobes which are likely inflammatory she has no pulmonary complaints whatsoever, urinalysis is negative for evidence of infection or blood. Mild potential enteritis versus ileus, however the patient is still having bowel movements and is now tolerating p.o. here without difficulty. On reassessment the patient continues to have no abdominal pain whatsoever, abdominal exam is now unremarkable. She no longer has any nausea or vomiting, no more dry heaving. She is feeling much better. With no clinical evidence of obstruction at this time I do feel that she can be discharged. Did recommend bland diet, continuation of her reflux medications, close follow-up with her PCP, and potential surgical evaluation. I have extensively reviewed the treatment plan and discharge instructions with the patient. I have addressed all patient concerns at this time. The patient was made aware of what symptoms to monitor for that would warrant a return to the emergency department. Discussed the plan with the patient, they demonstrate verbal understanding and agreement with our assessment and plan at this time. EKG 5: 17 Rate 63, intervals normal, sinus rhythm, no significant ST elevations or depressions, inverted T wave present in V1 and lead III, unchanged from prior EKG on 06/21/2019 IMPRESSION: Mild reticulonodular opacities in the right middle and right lower lobes which may be infectious/inflammatory Question recently passed right renal/ureteral calculus with mild residual fullness of the right renal collecting system and proximal ureter Nonspecific nonobstructed bowel gas pattern which may represent mild enteritis/ileus Colonic diverticulosis without diverticulitis Thank you for allowing us to participate in the care of your patient. Dictated and Authenticated by: Pancho Moore MD 06/27/2019 5:50 AM Eastern Time ([place] & [place]) HPI General Date/Time Provider Initiated Documentation: 06/27/19 04:53 . HPI Narrative: This is an 84-year-old female with a past medical history of COPD, diverticulitis, hypertension, reflux, irritable bowel syndrome, who presents today for evaluation of abdominal pain. She was here about a week ago, had similar symptoms at that time, CT scan showed enteritis but was otherwise unremarkable. She did have some mild chronic hyponatremia at that time. She states that since then she got better however it last evening the pain returned and was slightly different. She is having regular soft bowel movements, she did notice a small amount of bright red blood the other day but none before or since then. She denies any vomiting but does admit to notable dry heaving. Symptoms appear to be located in the lower abdominal region in the periumbilical region. She denies any chest pain chest tightness or shortness of breath. She denies any numbness tingling or weakness. Pain is aching in nature. She denies any other complaints at this time. No other modifying factors. Surgical history is positive for cholecystectomy and hysterectomy Related Data Home Medications Medication Instructions Recorded Confirmed PreserVision AREDS 1 tab PO BID 05/25/12 06/27/19 simvastatin 5 mg tablet 5 mg PO DAILY #90 tab-cap 07/08/18 06/27/19 metoprolol tartrate 50 mg tablet 50 mg PO BID #180 tab-cap 12/30/18 06/27/19 albuterol sulfate 90 mcg/actuation 1 - 2 inh IH Q6H PRN #8.5 gm 01/14/19 06/27/19 aerosol inhaler acetaminophen 325 mg tablet 325 - 650 mg PO Q4H PRN #90 tab 03/04/19 06/27/19 omeprazole 40 mg capsule,delayed 40 mg PO DAILY #30 cap 06/14/19 06/27/19 release ondansetron HCl 4 mg tablet 4 mg PO Q8H PRN #10 tab 06/14/19 06/27/19 polyethylene glycol 3350 17 17 gm PO DAILY PRN #238 gm 06/18/19 06/27/19 gram/dose oral powder magnesium 40 mg PO DAILY 06/21/19 06/27/19 sucralfate 1 g PO BID 06/21/19 06/27/19 sucralfate [Carafate] 1 gm PO BID #20 tab 06/21/19 06/27/19 Previous Rx's Medication Instructions Recorded simvastatin 5 mg tablet 5 mg PO DAILY #90 tab-cap 07/08/18 metoprolol tartrate 50 mg tablet 50 mg PO BID #180 tab-cap 12/30/18 albuterol sulfate 90 mcg/actuation 1 - 2 inh IH Q6H PRN #8.5 gm 01/14/19 aerosol inhaler acetaminophen 325 mg tablet 325 - 650 mg PO Q4H PRN #90 tab 03/04/19 omeprazole 40 mg capsule,delayed 40 mg PO DAILY #30 cap 06/14/19 release ondansetron HCl 4 mg tablet 4 mg PO Q8H PRN #10 tab 06/14/19 polyethylene glycol 3350 17 17 gm PO DAILY PRN #238 gm 06/18/19 gram/dose oral powder sucralfate [Carafate] 1 gm PO BID #20 tab 06/21/19 Allergies Allergy/AdvReac Type Severity Reaction Status Date / Time ciprofloxacin [From Cipro] Allergy Intermediate Lips and Verified 03/04/19 10:23 face burn, feels shaky, arm tingly codeine AdvReac Intermediate Dizziness/L Verified 03/04/19 10:23 ightheade lovastatin AdvReac Intermediate myalgias Verified 03/04/19 10:23 oxycodone AdvReac Intermediate NAUSEA, GI Verified 03/04/19 10:23 UPSET azithromycin AdvReac cramping, Verified 06/21/19 19:01 anorexia doxycycline AdvReac Nausea, Verified 06/21/19 19:01 Vomiting hydrocodone AdvReac unknown Verified 06/21/19 19:01 General Stated Complaint: Abd Prob MELINDA: 3 Review of Systems All systems reviewed & are unremarkable except as noted in HPI and below PFSH Surgical History Abdominal hysterectomy Arthroplasty of knee (05/27/12) LEFT - Pt denies knee replacement Bilateral salpingectomy with oophorectomy Bladder Surgery Cholecystectomy Colonoscopy - MAC (~02/2012) Colonoscopy - MAC (04/22/17) EGD - MAC (04/22/17) KNEE SURGERY (~05/2012) Family History (Updated 01/20/19 @ 10:51 by Skyler Swann) Mother , AGE 84 Heart disease Father , AGE 87 Stroke Heart disease Cancer Sister Stroke Brother Alcohol abuse Cancer Brother Cancer of kidney Son Hyperlipidemia Pulmonary disease Daughter Thyroid disease Daughter Cancer s/p hysterectomy Daughter No problems noted. Daughter No problems noted. Brother No problems noted. Maternal Grandfather No problems noted. Paternal Grandfather No problems noted. Maternal Grandmother No problems noted. Paternal Grandfather No problems noted. Social History Smoking/Tobacco Use Status: Former Tobacco Use Quit Date: 03/17/97 Second Hand Exposure: Yes Alcohol Intake: never Drug use: Never Substance use type: does not use Caregiver/Support person: No Household members: none Housing: house Communication Needs: Hard of Hearing and Corrective Lenses Pets and animals: Yes Pets and animals: dog(s) Sexually active: No Do you think of yourself as: straight/heterosexual Current gender identity: female What is your relationship status?: How often do you talk on the phone with friends or family?: decline to answer How often do you get together with friends or relatives?: decline to answer How often do you attend mu-ism or druze services?: decline to answer Do you belong to any clubs or organized social groups?: decline to answer Panel score (0-1 are the most socially isolated patients): 0 What type of physical activity do you participate in: none Frequency: does not exercise Carri/Denominational: Evangelical Special carri needs: No Seatbelt use: always Helmet use: No Drive intox 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 3.ENT: Atraumatic external nose and ears. Dry MM. Neck: Symmetric, trachea midline, No thyromegaly. 4.CVS: +S1/S2, No murmurs or gallops. Peripheral pulses 2+ and equal in all extremities. Brisk capillary refill in all extremities. 5.RESP: Unlabored respiratory effort. Clear to auscultation bilaterally. No wheezes rales or rhonchi 6.GI: Soft,dondistended, No hepatosplenomegaly. No guarding or rebound. Despite the patient denying any abdominal pain at this time on palpation she d oes have notable tenderness, primarily in the left lower abdominal region. Mild pain at McBurney's point, negative Jiang sign. 7.MSK: Normocephalic/Atraumatic, Extremities w/o deformity or ttp No cyanosis or clubbing, Normal movement of all extremities 8.Skin: Warm, Dry. No rashes or lesions. 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 Sensation grossly intact, no focal neurologic deficits. 10.Psych: (AAO) x3. Appropriate mood and affect Course Vital Signs Vital signs: Vital Signs Temperature 36.5 C 06/27/19 04:57 Pulse 78 06/27/19 04:57 Respiratory Rate 16 06/27/19 04:57 Blood Pressure 170/79 H 06/27/19 04:57 Pulse Oximetry 96 06/27/19 04:57 Temperature 36.5 C 06/27/19 04:57 Temperature Source Temporal Artery Scan 06/27/19 04:57 Pulse 78 06/27/19 04:57 Respiratory Rate 16 06/27/19 04:57 Respiratory Effort 06/27/19 05:02 Blood Pressure 170/79 H 06/27/19 04:57 Blood Pressure Position Sitting 06/27/19 04:57 Pulse Oximetry 96 06/27/19 04:57 Oxygen Delivery Method Room Air 06/27/19 04:57 Oxygen Flow Rate 0 06/27/19 04:57
[2019-06-27 05:14] LABS: Abs Immature Grans 0.01 k/cumm (0.0-0.09); Absolute Basophil Count 0.01 k/cumm (0.0-0.2); Absolute Eosinophil Count 0.06 k/cumm (0.0-0.7); Absolute Lymphocyte Count 1.48 k/cumm (1.2-3.4); Absolute Monocyte Count 0.48 k/cumm (0.11-0.7); Absolute Neutrophil Count 3.48 k/cumm (1.2-6.7); Basophils % 0.2; Eosinophils % 1.1; HCT 40.1 % (36.0-46.0); HGB 13.9 g/dL (12.0-15.5); Immature Grans % 0.2 %; Lymphocytes % 26.8; Mean Corp. HGB Concentration 34.7 g/dL (32.0-36.0); Mean Corpuscular Volume 89.5 fL (80-95); Mean Platelet Volume 10.7 fL (8.0-11.0); Monocytes % 8.7; Platelet Count 173 x1000/uL (130-400); RBC 4.48 m/cumm (4.00-5.20); RBC Distribution Width 12.5 % (11.7-14.6); White Blood Cell Count 5.52 k/cumm (4.4-10.8)
[2019-06-27] MEDS: Normal Saline 1,000 ML 1000 ML IV (05:18)
[2019-06-27] MEDS: Dicyclomine 20 MG TAB PO (05:18)
[2019-06-27] MEDS: Ondansetron 4 MG/2 ML VIAL IVP (05:18)
[2019-06-27 05:31] LABS: ALT 28 U/L (14-59); AST 22 U/L (15-37); Albumin 3.9 g/dL (3.4-5.0); Alkaline Phosphatase 105 U/L (46-116); Anion Gap 5.8 mmol/L (3-11); BUN 9 mg/dL (7-18); Bilirubin, Total 0.5 mg/dL (0.2-1.0); CO2 31.2 mmol/L (21.0-32.0); CREATININE 0.97 mg/dL (0.55-1.02); Calcium 9.1 mg/dL (8.5-10.1); Chloride 100 mmol/L (98-107); Estimated GFR 54.98 (mL/min/1.73m2); Glucose 114 mg/dL (74-106); Lipase 231 U/L (73-393); Potassium 3.9 mmol/L (3.5-5.1); Sodium 137 mmol/L (136-145); Total Protein 7.1 g/dL (6.4-8.2)
[2019-06-27 05:43] LABS: Troponin I < 0.05 ng/Ml (<0.06)
--- NOTE | 2019-06-27 05:51 | DI.VRAD_ITS ---
PROCEDURE INFORMATION: Exam: CT Abdomen And Pelvis Without Contrast Exam date and time: 06/27/2019 5:07 AM Age: 84 years old Clinical indication: Localized; Prior surgery; Patient HX: Lower abdominal pain, nausea, dry heaving TECHNIQUE: Imaging protocol: Computed tomography of the abdomen and pelvis without contrast. COMPARISON: CT CHEST/ABD/PEL W 06/21/2019 7:51 PM FINDINGS: Mild reticulonodular opacities in the right middle and right lower lobes Liver: No mass. Gallbladder and bile ducts: Prior cholecystectomy No ductal dilation. Pancreas: No ductal dilation. Spleen: No splenomegaly. Adrenals: No mass. Kidneys and ureters: Question mild fullness to the right renal collecting system and proximal right ureter. No definite calcified stones Stomach and bowel: Colonic diverticulosis. Nonspecific air-fluid levels in the small bowel and question mild wall thickening No obstruction. No mucosal thickening. Appendix: No evidence of appendicitis. Intraperitoneal space: No free air. No significant fluid collection. Vasculature: Atherosclerosis. No abdominal aortic aneurysm. Lymph nodes: Unremarkable. No enlarged lymph nodes. Bladder: Minimal air anteriorly presumably related to recent catheterization Reproductive: Unremarkable as visualized. Bones/joints: Plate and screws at the pubic symphysis. Chronic right pubic deformity No acute fracture. Degenerative changes in the spine and pelvis Soft tissues: Unremarkable. IMPRESSION: Mild reticulonodular opacities in the right middle and right lower lobes which may be infectious/inflammatory Question recently passed right renal/ureteral calculus with mild residual fullness of the right renal collecting system and proximal ureter Nonspecific nonobstructed bowel gas pattern which may represent mild enteritis/ileus Colonic diverticulosis without diverticulitis Dictated and Authenticated by: Pancho Moore MD. Ordering:JUNG Santos MD
[2019-06-27 06:18] LABS: Bilirubin Negative (Negative); Blood Negative (Negative); Clarity Clear (Clear); Glucose Negative (Negative); Ketones Negative (Negative); Leukocyte Esterase Negative (Negative); Nitrite Negative (Negative); Urobilinogen 0.2 EU/dL (Up TO 0.2); pH 7.5 (5-8)
[2019-06-27 06:35] VITALS: BP 162/64; PULSE 64; RESP 18; O2SAT 98
== END 2019-06-27 07:02 | disposition home or self-care (01) ==
PROVIDERS: Emergency Provider Student in an Organized Health Care Education/Training Program; PCP Family Medicine
DX: R10.32 Left lower quadrant pain (principal); I10 Essential (primary) hypertension; J44.9 Chronic obstructive pulmonary disease, unspecified; Z87.891 Personal history of nicotine dependence
CPT/HCPCS: 80053; 83690; 93005; 96361; 96374; 99284; 74176; 81003; 84484; 85025; 93010; J2405

== ENCOUNTER 2019-07-21 20:35 | Outpatient (REF) | payer MEDICARE, OTHER, SELFPAY ==
[2019-07-21 19:50] LABS: HGB 13.9 g/dL (12.0-15.5); Lymphocytes % 16.9; Mean Corp. HGB Concentration 34.8 g/dL (32.0-36.0); Mean Corpuscular Volume 86.2 fL (80-95); Mean Platelet Volume 11.7 fL (8.0-11.0); Monocytes % 11.2; Neutrophils % 71.2; Platelet Count 193 x1000/uL (130-400); RBC 4.64 m/cumm (4.00-5.20); RBC Distribution Width 12.3 % (11.7-14.6); White Blood Cell Count 8.47 k/cumm (4.4-10.8)
[2019-07-21 19:51] LABS: Abs Immature Grans 0.02 k/cumm (0.0-0.09); Absolute Basophil Count 0.01 k/cumm (0.0-0.2); Absolute Eosinophil Count 0.03 k/cumm (0.0-0.7); Absolute Lymphocyte Count 1.43 k/cumm (1.2-3.4); Absolute Monocyte Count 0.95 k/cumm (0.11-0.7); Absolute Neutrophil Count 6.03 k/cumm (1.2-6.7); Basophils % 0.1; Eosinophils % 0.4; Immature Grans % 0.2 %
[2019-07-21 20:57] LABS: ESR 18 mm/hr (0-30)
[2019-07-21 21:13] LABS: ALT 37 U/L (14-59); AST 27 U/L (15-37); Albumin 4.1 g/dL (3.4-5.0); Alkaline Phosphatase 96 U/L (46-116); Amylase 77 U/L (25-115); Anion Gap 4.5 mmol/L (3-11); BUN 13 mg/dL (7-18); Bilirubin, Total 0.6 mg/dL (0.2-1.0); CO2 29.5 mmol/L (21.0-32.0); CREATININE 0.99 mg/dL (0.55-1.02); Calcium 9.3 mg/dL (8.5-10.1); Chloride 87 mmol/L (98-107); Glucose 107 mg/dL (74-106); Lipase 340 U/L (73-393); Total Protein 7.3 g/dL (6.4-8.2)
[2019-07-21 21:24] LABS: Sodium 121 mmol/L (136-145)
[2019-07-21 21:32] LABS: Bilirubin Negative (Negative); Blood Negative (Negative); Clarity Cloudy (Clear); Glucose Negative (Negative); Ketones Negative (Negative); Leukocyte Esterase Moderate (Negative); Nitrite Positive (Negative); Specific Gravity >= 1.030 (1.005-1.025); Urobilinogen 0.2 EU/dL (Up TO 0.2); pH 5.5 (5-8)
[2019-07-21 21:33] LABS: WBC >50 HPF (0-5)
[2019-07-21 21:34] LABS: Bacteria Many HPF (Negative); C & S Indicated? Yes
== END 2019-07-21 20:55 ==
LOC: LBN 20:35
PROVIDERS: PCP Family Medicine; Visit Provider Family Medicine
DX: R10.9 Unspecified abdominal pain (principal); R30.0 Dysuria; F32.9 Major depressive disorder, single episode, unspecified
CPT/HCPCS: 80053; 83690; 85652; 87077; 81003; 81015; 82150; 85025; 87086; 87186

== ENCOUNTER 2019-07-22 09:53 | Observation (INO) | payer MEDICARE, OTHER, SELFPAY ==
[2019-07-22] VITALS (24 sets, daily range): BP systolic 87–154; BP diastolic 53–82; PULSE 52–69; RESP 16–19; TEMP 36.1–36.7; O2SAT 95–99
--- NOTE | 2019-07-22 10:05 | W.ED.GENAD ---
Discharge Plan Disposition Patient Disposition: [facility] INPATIENT Condition: Stable Discharge Details Chief Complaint: Abd Prob Clinical Impression: Acute hyponatremia, Urinary tract infection Admit Date/Time: 07/22/19 12:34 Admit Provider: Rolan Jiménez Attending Provider: Rolan Jiménez Primary Care Provider: Sana Camejo ED Provider: Isis Vasquez Discharge Data Discharge Date/Time-TO BE ENTERED AT DEPARTURE: 07/22/19 13:31 Medical Decision Making <Isis Vasquez - Last Filed: 07/22/19 13:30> 84-year-old female presents to the ED with nausea, midepigastric abdominal pain, weakness for the last 6 to 7 days. She was seen by her PCP at [facility] yesterday and had lab work done which showed a sodium level of 121,+ leukocytes in her urine with nitrites. She was told by her PCP to come to the ED today. She also reports 20 pound weight loss over the last 6 weeks. She denies diarrhea no vomiting. She also reports decreased appetite states that she has to force herself to eat. At this time she has no respiratory symptoms no cough no fever. At this time patient has evidence of hyponatremia and urinary tract infection. Differential diagnosis includes failure to thrive, sepsis, cholecystectomy, small bowel obstruction. CAD. 1056: Sodium result is 124, chloride 88 Chest X-ray: FINDINGS: The heart size is within normal limits. The aorta is not dilated. There are old right rib fractures. There are underlying fibrotic changes. No infiltrate, effusion or pulmonary edema is seen. Degenerative changes are noted in both shoulders as well as the thoracic spine. IMPRESSION: No acute pulmonary findings. Suggested disposition is admission for hyponatremia, urinary tract infection, weakness, unexplained weight loss. Rocephin antibiotic 1 g IV piggyback ordered for broad broad-spectrum UTI coverage. 1243: Spoke with Dr. Jiménez who agrees to admit patient for observation, Lactate and procalcitonin added on at his suggestion. Discussed plan of care with patient, verbalized understanding. She remains hemodynamically stable throughout her stay. <Herman Smith MD - Last Filed: 07/22/19 18:29> Screening ECG was reviewed and interpreted by me and discussed with ANYA Vasquez. Sinus rhythm 61 bpm, normal axis, no STEMI, nondiagnostic. Patient seen, examined, discussed with I agree with plan as documented by ANYA Vasquez. Agree with plan for admission. HPI <Isis Vasquez - Last Filed: 07/22/19 13:30> General Mode of arrival: ambulatory. Date/Time Provider Initiated Documentation: 07/22/19 09:54. Limitations to Documentation: no limitations. Information obtained by: patient. HPI Narrative: 84-year-old female presents to the ED with nausea, midepigastric abdominal pain, weakness for the last 6 to 7 days. She was seen by her PCP at [facility] yesterday and had lab work done which showed a sodium level of 121,+ leukocytes in her urine with nitrites. She was told by her PCP to come to the ED today. She also reports 20 pound weight loss over the last 6 weeks. She denies diarrhea no vomiting. She also reports decreased appetite states that she has to force herself to eat. At this time she has no respiratory symptoms no cough no fever. Related Data Home Medications Medication Instructions Recorded Confirmed metoprolol tartrate 50 mg tablet 50 mg PO BID #180 tab-cap 12/30/18 07/22/19 albuterol sulfate 90 mcg/actuation 1 - 2 inh IH Q6H PRN #8.5 gm 01/14/19 07/22/19 aerosol inhaler polyethylene glycol 3350 17 17 gm PO DAILY PRN #238 gm 06/18/19 07/21/19 gram/dose oral powder simvastatin 5 mg tablet 5 mg PO QHS #90 tab-cap 07/08/19 07/22/19 vitamins A,C,P-gxrg-wocdku 7,160 1 tab PO BID #30 tab 07/08/19 07/22/19 unit-113 mg-100 unit tablet acetaminophen 500 mg tablet 500 mg PO QID PRN #30 tab 07/14/19 07/22/19 lorazepam 0.5 mg tablet 0.25 mg PO DAILY #25 tab 07/14/19 07/22/19 citalopram 10 mg tablet See Rx Instructions PO DAILY 07/21/19 07/22/19 Previous Rx's Medication Instructions Recorded metoprolol tartrate 50 mg tablet 50 mg PO BID #180 tab-cap 12/30/18 albuterol sulfate 90 mcg/actuation 1 - 2 inh IH Q6H PRN #8.5 gm 10/31/19 aerosol inhaler polyethylene glycol 3350 17 17 gm PO DAILY PRN #238 gm 06/18/19 gram/dose oral powder simvastatin 5 mg tablet 5 mg PO QHS #90 tab-cap 07/08/19 vitamins A,C,R-awgz-xjvbgb 7,160 1 tab PO BID #30 tab 07/08/19 unit-113 mg-100 unit tablet acetaminophen 500 mg tablet 500 mg PO QID PRN #30 tab 07/14/19 lorazepam 0.5 mg tablet 0.25 mg PO DAILY #25 tab 07/14/19 Allergies Allergy/AdvReac Type Severity Reaction Status Date / Time ciprofloxacin [From Cipro] Allergy Intermediate Lips and Verified 07/22/19 10:09 face burn, feels shaky, arm tingly codeine AdvReac Intermediate Dizziness/L Verified 07/22/19 10:09 ightheade lovastatin AdvReac Intermediate myalgias Verified 07/22/19 10:09 oxycodone AdvReac Intermediate NAUSEA, GI Verified 07/22/19 10:09 UPSET azithromycin AdvReac cramping, Verified 07/22/19 10:09 anorexia doxycycline AdvReac Nausea, Verified 07/22/19 10:09 Vomiting hydrocodone AdvReac unknown Verified 07/22/19 10:09 General MELINDA: 3 Review of Systems <Isis Vasquez - Last Filed: 07/22/19 13:30> Narrative: Constitutional: alert and oriented, well groomed, normal body habitus, appears comfortable. Positive weight loss 20 pounds over the last 6 weeks. HEENT: Denies trauma, headaches, blurry vision, nasal discharge, sore throat, trouble swallowing. Chest: Denies chest pain, palpitations, irregular rhythm, hypertension. Respiratory: Denies Shortness of breath, cough, hemoptysis. GI: Denies vomiting, diarrhea, constipation. Positive midepigastric abdominal pain, positive nausea. : Denies dysuria, hematuria, flank pain, rectal bleeding. Neuro: Denies dizziness, blurry vision, syncope, headache or facial numbness. Positive weakness generalized. Hematologic: Denies easy bruising, intolerance to heat or cold, hair loss. All systems reviewed & are unremarkable except as noted in HPI and below PFSH <Isis Vasquez - Last Filed: 07/22/19 13:30> Medical History [place] kicked by a horse; rib fracture; lacerated liver; fx-pelvis; perf. intestine Atrophic vaginitis (Acute 08/19/11) Pt. states she is unsure Depression DNI (do not intubate) (Acute) DNR (do not resuscitate) (Acute) Essential hypertension Family history of GI malignancy GERD (gastroesophageal reflux disease) Hx of fracture of pelvis (Acute) pt. states she shattered her pelvis in 1970's Hyperlipidemia Macular degeneration (Acute) Mixed incontinence (Acute 08/19/11) [facility] [place] [facility] [place] POLST (Physician Orders for Life-Sustaining Treatment) (Acute) Surgical History Abdominal hysterectomy Arthroplasty of knee (05/27/12) LEFT - Pt denies knee replacement Bilateral salpingectomy with oophorectomy Bladder Surgery Cholecystectomy Colonoscopy - MAC (~02/2012) Colonoscopy - MAC (04/22/17) EGD - MAC (04/22/17) KNEE SURGERY (~05/2012) Family History Mother , AGE 84 Heart disease Father , AGE 87 Stroke Heart disease Cancer Sister Stroke Brother Alcohol abuse Cancer Brother Cancer of kidney Son Hyperlipidemia Pulmonary disease Daughter Thyroid disease Daughter Cancer s/p hysterectomy Daughter No problems noted. Daughter No problems noted. Brother No problems noted. Maternal Grandfather No problems noted. Paternal Grandfather No problems noted. Maternal Grandmother No problems noted. Paternal Grandfather No problems noted. Social History Smoking/Tobacco Use Status: Former Tobacco Use Quit Date: 03/17/97 Second Hand Exposure: Yes Alcohol Intake: never Drug use: Never Substance use type: does not use Caregiver/Support person: No Household members: none Housing: house Communication Needs: Hard of Hearing and Corrective Lenses Pets and animals: Yes Pets and animals: dog(s) Sexually active: No Do you think of yourself as: straight/heterosexual Current gender identity: female What is your relationship status?: How often do you talk on the phone with friends or family?: decline to answer How often do you get together with friends or relatives?: decline to answer How often do you attend catholic or episcopalian services?: decline to answer Do you belong to any clubs or organized social groups?: decline to answer Panel score (0-1 are the most socially isolated patients): 0 What type of physical activity do you participate in: none Frequency: does not exercise Carri/Gnosticism: Voodoo Special carri needs: No Seatbelt use: always Helmet use: No Drive intox 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 Appears stated age. Normal body habitus. Head: Normocephalic, no trauma. Eyes: Pupils PERRLA, Red reflex noted, EOM's intact. Eyelids symmetrical without lesions, discharge, or swelling. ENT: Bilateral TM's WNL, External ear normal to inspection, no mastoid TTP, swelling, or erythema, Nasal turbinates WNL, no nasal discharge. Normal dentition, Posterior pharynx WNL, no exudate. Chest: RRR, Normal S1, S2, distal pulses intact. Resp: Lungs clear to auscultation bilaterally, no wheezes, rales, or rhonchi. Abdominal: Soft nondistended. Hypoactive bowel sounds all 4 quadrants. Mild left lower quadrant suprapubic tenderness to palpation, this may be due to her UTI. Musculoskeletal: Normal gait, 5/5 strength to all four extremities. Skin: No suspicious rashes or lesions. Capillary refill less than 2 sec. Neurologic: Cranial nerves II-XII intact. Alert and oriented x 3. DTR's intact. Hematologic/Lymphatic: No ecchymosis, no lymphadenopathy. Course <Isis Vasquez - Last Filed: 07/22/19 13:30> Lab/Test Results Lab/Test Results: 07/22/19 09:56 Blood Blood Culture - Pending 07/22/19 09:56 Blood Blood Culture - Pending
[2019-07-22] MEDS: Normal Saline Flush 10 ML SYR IVP ×2 (10:20→19:44)
[2019-07-22 10:31] LABS: Abs Immature Grans 0.01 k/cumm (0.0-0.09); Absolute Basophil Count 0.01 k/cumm (0.0-0.2); Absolute Eosinophil Count 0.02 k/cumm (0.0-0.7); Absolute Lymphocyte Count 1.36 k/cumm (1.2-3.4); Absolute Monocyte Count 0.81 k/cumm (0.11-0.7); Basophils % 0.1; Eosinophils % 0.2; HCT 38.7 % (36.0-46.0); HGB 13.2 g/dL (12.0-15.5); Immature Grans % 0.1 %; Lymphocytes % 16.4; Mean Corp. HGB Concentration 34.1 g/dL (32.0-36.0); Mean Corpuscular Hemoglobin 29.7 pg (27.0-33.0); Mean Corpuscular Volume 87.2 fL (80-95); Mean Platelet Volume 10.8 fL (8.0-11.0); Monocytes % 9.7; Neutrophils % 73.5; Platelet Count 193 x1000/uL (130-400); RBC 4.44 m/cumm (4.00-5.20); RBC Distribution Width 12.5 % (11.7-14.6); White Blood Cell Count 8.31 k/cumm (4.4-10.8)
[2019-07-22] MEDS: Normal Saline 500 ML IV (10:31)
[2019-07-22 10:46] LABS: Lipase 324 U/L (73-393)
[2019-07-22 10:54] LABS: ALT 30 U/L (14-59); AST 21 U/L (15-37); Albumin 3.6 g/dL (3.4-5.0); Alkaline Phosphatase 86 U/L (46-116); Anion Gap 8.1 mmol/L (3-11); BUN 14 mg/dL (7-18); Bilirubin, Total 0.6 mg/dL (0.2-1.0); CO2 27.9 mmol/L (21.0-32.0); CREATININE 0.89 mg/dL (0.55-1.02); Glucose 103 mg/dL (74-106); Magnesium 1.8 mg/dL (1.8-2.4); Potassium 4.8 mmol/L (3.5-5.1); Total Protein 7.1 g/dL (6.4-8.2)
[2019-07-22 10:57] LABS: Chloride 88 mmol/L (98-107); Sodium 124 mmol/L (136-145); Troponin I < 0.05 ng/Ml (<0.06)
--- NOTE | 2019-07-22 11:15 | DI.RAD_ITS ---
EXAM: XR PORTABLE CHEST AP CLINICAL HISTORY: low sodium, weakness TECHNIQUE: 2D digital imaging was performed. COMPARISON: CR CHEST 2 VIEWS PA,LAT from 03/13/2017 FINDINGS: The heart size is within normal limits. The aorta is not dilated. There are old right rib fractures . There are underlying fibrotic changes. No infiltrate, effusion or pulmonary edema is seen. Degen erative changes are noted in both shoulders as well as the thoracic spine. IMPRESSION: No acute pulmonary findings. DATA REPOSITORY: RADIATION DOSE DELIVERED:
[2019-07-22] MEDS: cefTRIAXone 1 GM/50 ML BAG IVPB (11:20)
[2019-07-22 11:36] LABS: Bilirubin Negative (Negative); Blood Negative (Negative); Clarity Clear (Clear); Glucose Negative (Negative); Ketones Negative (Negative); Leukocyte Esterase Trace (Negative); Nitrite Positive (Negative); Specific Gravity 1.015 (1.005-1.025); Urobilinogen 0.2 EU/dL (Up TO 0.2)
[2019-07-22 11:44] LABS: Bacteria Moderate HPF (Negative); C & S Indicated? Yes; Casts Negative LPF (Negative); Crystals Negative HPF (Negative); Epithelial Cells Few HPF (Negative); Mucus Negative (Negative); Other Cells Rare Renal (Negative); RBC Negative HPF (0-2); WBC >50 HPF (0-5)
--- NOTE | 2019-07-22 12:33 | W.PM.HP.N ---
Date of service: 07/22/19 Time of Service: 12:33 Assessment and Plan Assessment and plan (1) Urinary tract infection: Status: Acute Assessment and plan: Referred to observation on the medical surgical unit cultures are pending. Has been started on ceftriaxone will continue until ID and sensitivities are available (2) Acute hyponatremia: Status: Acute Assessment and plan: Sodium is already trending upward will continue replacement and monitoring. No further work-up warranted at this time (3) Abdominal pain: Status: Acute Assessment and plan: 2 month history of abdominal pain, epigastric, work up and imaging unrevealing to date. was scheduled to see Dr Serrano tomorrow in the office for possible EGD. will place consult and make NPO after midnight pending consult. IV pantoprazole (4) Essential hypertension: Status: Acute Assessment and plan: will monitor and continue home medications (5) Hyperlipidemia: Status: Acute Assessment and plan: continue statin (6) DVT prophylaxis: Status: Acute Assessment and plan: enoxaparin daily (7) Discharge planning issues: Status: Acute Assessment and plan: home when stable. case management following. History of Present Illness History of Present Illness Chief Complaint: weakness Narrative: This is an 84-year-old female patient with a past medical history significant for esophageal reflux hypertension status post cholicystectomy abdominal hysterectomy who was referred to the emergency department by her primary care provider for evaluation of hyponatremia. She had outpatient labs that showed a sodium of 121. She has been experiencing epigastric discomfort since May and was scheduled to see general surgery in consultation tomorrow at 11 AM for possible EGD. Repeat sodium in the emergency department today came back at 124. Her appetite has been extremely poor but she states she is drinking about 1 quart of water daily she reports longstanding issues with constipation. Her stool was negative for occult blood at recent PCP appointment she has had no black or tarry stools. Her work-up in the emergency department also did show a urinary tract infection and she was started on ceftriaxone. She was referred to [facility] for observation for sodium replacement. Review of Systems Constitutional Constitutional: Reports anorexia, Reports fatigue, Reports lethargy and Reports malaise Eyes Eyes: Denies change in vision ENT Ears, Nose, Mouth, and Throat: Denies vertigo, Denies dizziness, Denies dry mouth, Denies mouth pain and Denies odynophagia Cardiovascular Cardiovascular: Denies chest pain Respiratory Respiratory: Denies chest congestion and Denies cough Gastrointestinal Gastrointestinal: Reports abdominal pain, Denies melena, Denies hematochezia, Denies change in bowel habits, Reports constipation, Denies loose stools and Denies odynophagia Genitourinary Genitourinary: Denies dysuria and Denies pelvic pain Musculoskeletal Musculoskeletal: Denies myalgias Integumentary/Breasts Skin/Breast: Denies rash Neurologic Neurologic: Denies confusion, Denies vertigo and Denies dizziness Psychiatric Psychiatric: Denies confusion Endocrine Endocrine: Reports fatigue Hematologic/Lymphatic Hematologic/Lymphatic: Denies easy bleeding and Denies easy bruising [facility] Medical History [place] (Inactive) kicked by a horse; rib fracture; lacerated liver; fx-pelvis; perf. intestine Atrophic vaginitis (Acute 08/19/11) Pt. states she is unsure Depression DNI (do not intubate) (Acute) DNR (do not resuscitate) (Acute) Essential hypertension Family history of GI malignancy GERD (gastroesophageal reflux disease) Hx of fracture of pelvis (Acute) pt. states she shattered her pelvis in 1970's Hyperlipidemia Macular degeneration (Acute) Mixed incontinence (Acute 08/19/11) [facility] [place] pessary POLST (Physician Orders for Life-Sustaining Treatment) (Acute) Surgical History Abdominal hysterectomy Arthroplasty of knee (05/27/12) LEFT - Pt denies knee replacement Bilateral salpingectomy with oophorectomy Bladder Surgery Cholecystectomy Colonoscopy - MAC (~02/2012) Colonoscopy - MAC (04/22/17) EGD - MAC (04/22/17) KNEE SURGERY (~05/2012) Family History Mother , AGE 84 Heart disease Father , AGE 87 Stroke Heart disease Cancer Sister Stroke Brother Alcohol abuse Cancer Brother Cancer of kidney Son Hyperlipidemia Pulmonary disease Daughter Thyroid disease Daughter Cancer s/p hysterectomy Daughter No problems noted. Daughter No problems noted. Brother No problems noted. Maternal Grandfather No problems noted. Paternal Grandfather No problems noted. Maternal Grandmother No problems noted. Paternal Grandfather No problems noted. Social History Smoking/Tobacco Use Status: Former Tobacco Use Quit Date: 03/17/97 Second Hand Exposure: Yes Alcohol Intake: never Drug use: Never Substance use type: does not use Caregiver/Support person: No Household members: none Housing: house Communication Needs: Hard of Hearing and Corrective Lenses Pets and animals: Yes Pets and animals: dog(s) Sexually active: No Do you think of yourself as: straight/heterosexual Current gender identity: female What is your relationship status?: How often do you talk on the phone with friends or family?: decline to answer How often do you get together with friends or relatives?: decline to answer How often do you attend congregational or hinduism services?: decline to answer Do you belong to any clubs or organized social groups?: decline to answer Panel score (0-1 are the most socially isolated patients): 0 What type of physical activity do you participate in: none Frequency: does not exercise Carri/Adventism: Restorationism Special carri needs: No Seatbelt use: always Helmet use: No Drive intox 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 Do you feel safe at home: Yes Do you feel safe in your relationship?: Yes Meds Home Medications and Allergies Home Medications Medication Instructions Recorded Confirmed Type metoprolol tartrate 50 mg tablet 50 mg PO BID #180 tab-cap 12/30/18 07/22/19 Rx albuterol sulfate 90 mcg/actuation 1 - 2 inh IH Q6H PRN #8.5 gm 01/14/19 07/22/19 Rx aerosol inhaler polyethylene glycol 3350 17 17 gm PO DAILY PRN #238 gm 06/18/19 07/21/19 Rx gram/dose oral powder simvastatin 5 mg tablet 5 mg PO QHS #90 tab-cap 07/08/19 07/22/19 Rx vitamins A,C,U-vbmr-qzclsg 7,160 1 tab PO BID #30 tab 07/08/19 07/22/19 Rx unit-113 mg-100 unit tablet acetaminophen 500 mg tablet 500 mg PO QID PRN #30 tab 07/14/19 07/22/19 Rx lorazepam 0.5 mg tablet 0.25 mg PO DAILY #25 tab 07/14/19 07/22/19 Rx citalopram 10 mg tablet See Rx Instructions PO DAILY 07/21/19 07/22/19 History Allergies Allergy/AdvReac Type Severity Reaction Status Date / Time ciprofloxacin [From Cipro] Allergy Intermediate Lips and Verified 07/22/19 10:09 face burn, feels shaky, arm tingly codeine AdvReac Intermediate Dizziness/L Verified 07/22/19 10:09 ightheade lovastatin AdvReac Intermediate myalgias Verified 07/22/19 10:09 oxycodone AdvReac Intermediate NAUSEA, GI Verified 07/22/19 10:09 UPSET azithromycin AdvReac cramping, Verified 07/22/19 10:09 anorexia doxycycline AdvReac Nausea, Verified 07/22/19 10:09 Vomiting hydrocodone AdvReac unknown Verified 07/22/19 10:09 Exam Const General: cooperative, comfortable, no acute distress, frail appearing and ill appearing chronically Nutritional Appearance: thin Orientation: alert, awake and oriented x3 HENMT Head: normal to inspection, normocephalic and atraumatic Mouth: oral mucosae normal Resp Effort & Inspection: normal respiratory effort Auscultation: clear to auscultation bilaterally Cardio Rate: regular rate Rhythm: regular rhythm GI Inspection: normal to inspection and non-distended Palpation: tender in the epigastrum Auscultation: normal bowel sounds Skin General skin exam: no rashes or lesions noted Neuro General: patient alert, patient awake and patient oriented x3 Extrem General: normal to inspection and full ROM Results Labs Result diagrams: 07/22/19 10:12 07/22/19 10:12 Labs: Laboratory Results - last 24 hr 07/22/19 07/22/19 07/22/19 10:12 10:12 10:12 WBC 8.31 RBC 4.44 Hgb 13.2 Hct 38.7 MCV 87.2 MCH 29.7 MCHC 34.1 RDW 12.5 Plt Count 193 MPV 10.8 Immature Gran % 0.1 Neutrophils % 73.5 Lymphocytes % 16.4 Monocytes % 9.7 Eosinophils % 0.2 Basophils % 0.1 Absolute Neutrophils 6.10 Absolute Lymphocytes 1.36 Absolute Monocytes 0.81 H Absolute Eosinophils 0.02 Absolute Basophils 0.01 Sodium 124 L* Potassium 4.8 Chloride 88 L Carbon Dioxide 27.9 Anion Gap 8.1 BUN 14 Creatinine 0.89 Estimated GFR/1.73 m2 >= 60.00 Glucose 103 Calcium 9.0 Magnesium 1.8 Total Bilirubin 0.6 AST 21 ALT 30 Alkaline Phosphatase 86 Troponin I < 0.05 Total Protein 7.1 Albumin 3.6 Lipase 324 Urine Color Urine Clarity Urine pH Ur Specific Massey Urine Protein Urine Ketones Urine Blood Urine Nitrite Urine Bilirubin Urine Urobilinogen Ur Leukocyte Esterase Urine RBC Urine WBC Ur Epithelial Cells Urine Crystals Urine Bacteria Urine Casts Urine Mucus Urine Other Ur Culture Indicated? Urine Glucose 07/22/19 11:28 WBC RBC Hgb Hct MCV MCH MCHC RDW Plt Count MPV Immature Gran % Neutrophils % Lymphocytes % Monocytes % Eosinophils % Basophils % Absolute Neutrophils Absolute Lymphocytes Absolute Monocytes Absolute Eosinophils Absolute Basophils Sodium Potassium Chloride Carbon Dioxide Anion Gap BUN Creatinine Estimated GFR/1.73 m2 Glucose Calcium Magnesium Total Bilirubin AST ALT Alkaline Phosphatase Troponin I Total Protein Albumin Lipase Urine Color Yellow Urine Clarity Clear Urine pH 6.0 Ur Specific Massey 1.015 Urine Protein Negative Urine Ketones Negative Urine Blood Negative Urine Nitrite Positive H Urine Bilirubin Negative Urine Urobilinogen 0.2 Ur Leukocyte Esterase Trace H Urine RBC Negative Urine WBC >50 H Ur Epithelial Cells Few Urine Crystals Negative Urine Bacteria Moderate Urine Casts Negative Urine Mucus Negative Urine Other Rare renal Ur Culture Indicated? Yes Urine Glucose Negative Last Vital Signs Temp 36.3 C L 07/22/19 10:04 Pulse 69 07/22/19 12:00 Resp 17 07/22/19 10:04 BP 104/67 07/22/19 12:00 Pulse Ox 98 07/22/19 12:20 COVID-19 Screening Traveled to [place] from one of the affected countries or regions?: NO Recent travel in the [place] within the last 14 days?: No Recent out of the country travel within the last 14 days?: No Exposure or possible exposure to illness during travel?: No Had IN PERSON contact w/suspected or confirmed C-19 person: No Have you had the following symptoms in the past few days?: No
[2019-07-22 12:43] LABS: Lactate 0.6 mmol/L (0.6-1.4)
[2019-07-22 13:08] LABS: Troponin I < 0.05 ng/Ml (<0.06)
[2019-07-22 13:23] LABS: Procalcitonin < 0.1 ng/mL
[2019-07-22] MEDS: Normal Saline 1,000 ML 100 ML IV (18:08)
[2019-07-22] MEDS: Metoprolol 50 MG TAB PO (19:44)
[2019-07-22] MEDS: Simvastatin 10 MG TAB 5 MG PO (21:54)
[2019-07-22 23:08] LABS: COVID-19 RT-PCR UVMMC Result Negative (Negative)
[2019-07-23] MEDS: Normal Saline 1,000 ML 100 ML IV (05:02)
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
[2019-07-23 07:15] LABS: Abs Immature Grans 0.01 k/cumm (0.0-0.09); Absolute Basophil Count 0.01 k/cumm (0.0-0.2); Absolute Eosinophil Count 0.05 k/cumm (0.0-0.7); Absolute Lymphocyte Count 1.16 k/cumm (1.2-3.4); Absolute Monocyte Count 0.61 k/cumm (0.11-0.7); Absolute Neutrophil Count 4.85 k/cumm (1.2-6.7); Basophils % 0.1; Eosinophils % 0.7; HCT 36.7 % (36.0-46.0); HGB 12.5 g/dL (12.0-15.5); Immature Grans % 0.1 %; Lymphocytes % 17.3; Mean Corp. HGB Concentration 34.1 g/dL (32.0-36.0); Mean Platelet Volume 10.8 fL (8.0-11.0); Monocytes % 9.1; Neutrophils % 72.7; Platelet Count 176 x1000/uL (130-400); RBC 4.17 m/cumm (4.00-5.20); RBC Distribution Width 12.5 % (11.7-14.6); White Blood Cell Count 6.69 k/cumm (4.4-10.8)
[2019-07-23 07:21] LABS: BUN 11 mg/dL (7-18); Calcium 8.7 mg/dL (8.5-10.1); Chloride 96 mmol/L (98-107); Glucose 109 mg/dL (74-106); Potassium 4.4 mmol/L (3.5-5.1); Sodium 131 mmol/L (136-145)
[2019-07-23] MEDS: Citalopram 10 MG TAB 5 MG PO (08:50)
[2019-07-23] MEDS: Normal Saline Flush 10 ML SYR IVP (08:51)
[2019-07-23] MEDS: Pantoprazole 40 MG VIAL IVP (08:51)
[2019-07-23] MEDS: LORazepam 0.5 MG TAB 0.25 MG PO (08:51)
[2019-07-23 09:54] VITALS: BP 167/74; PULSE 56; RESP 17; TEMP 36.3; O2SAT 96
--- NOTE | 2019-07-23 10:35 | W.PM.DS.N ---
Date of service: 07/23/19 Time of Service: 10:35 DS: Diagnosis Discharge Diagnosis (1) Epigastric pain: Status: Acute Discharge Plan Disposition Patient Disposition: HOME Condition: Stable Discharge Details Chief Complaint: Abd Prob Clinical Impression: Acute hyponatremia, Urinary tract infection Reason For Visit: UTI, HYPONATREMIA Admit Date/Time: 07/22/19 12:34 Admit Provider: Rolan Jiménez Attending Provider: Rolan Jiménez Primary Care Provider: Sana Camejo ED Provider: [facility] Course Hospital Course: 84 y.o female with PMH of HTN, HLD, Diverticulitis, presented to [facility] ED on status post cholicystectomy abdominal hysterectomy who was referred to the emergency department by her primary care provider for evaluation of hyponatremia. She had outpatient labs that showed a sodium of 121. She had been experiencing epigastric discomfort since May and was scheduled to see general surgery in consultation tomorrow at 11 AM for possible EGD. Repeat sodium in the emergency department revealed 124. Her appetite has been extremely poor but she states she is drinking about 1 quart of water daily she reports longstanding issues with constipation. Her stool was negative for occult blood at recent PCP appointment she has had no black or tarry stools. Work-up in the emergency department also did show a urinary tract infection and she was started on ceftriaxone; she was admitted to [facility] for further management. Over the course of treatment she received IVF, EGD today with Dr. Serrano revealing gastritis and esophagitis, recommended she be on omeprazole BID. Urine culture with gram negative rods less than 10,000 received 2 doses of ceftriaxone. Will give keflex to finish course. She was ambulatory with PT today, they feel she is steady to go home. Sodium level improved. Encouraged to reduce fluids to increase sodium levels. Weakness is improved, feels she is able to perform ADL. Patient denies CP, SOB, N/V/D. She is being discharged home with a walker. Home Meds and New Rx's Prescriptions: New omeprazole 20 mg Capsule,Delayed Release(Dr/Ec) 40 mg PO BID@ Qty: 14 RF: 0 cephalexin [Keflex] 500 mg capsule 500 mg PO BID Qty: 10 RF: 0 Continued polyethylene glycol 3350 [Miralax] 17 gram/dose powder 17 gm PO DAILY PRN (Reason: constipation) Qty: 238 RF: 2 Hold Instructions: Home Medication placed on hold at Doctor's office simvastatin 5 mg tablet 5 mg PO QHS Qty: 90 RF: 3 PreserVision AREDS [id number] tablet 1 tab PO BID Qty: 30 RF: 0 acetaminophen [Tylenol Extra Strength] 500 mg tablet 500 mg PO QID PRN (Reason: pain) Qty: 30 RF: 0 lorazepam 0.5 mg tablet 0.25 mg PO DAILY Qty: 25 RF: 0 albuterol sulfate 90 mcg/actuation HFA aerosol inhaler 1 - 2 inh IH Q6H PRN (Reason: shortness of breath or wheezing) Qty: 8.5 RF: 6 citalopram 10 mg tablet See Rx Instructions PO DAILY RF: 0 metoprolol tartrate 50 mg tablet 50 mg PO BID Qty: 180 RF: 4 Discharge Instructions Instructions: Gastritis (GEN), Gastroesophageal Reflux Disease (DC), Catheter-associated Urinary Tract Infection (GEN) Additional Instructions: Take prescriptions as prescribed. You have been started on omeprazole twice daily for GERD, take 30 min before meals Follow up with Your Primary provider in 2 weeks. Recheck labs in 1 week Stand Alone Forms: Nursing Discharge Form Activity:: Activity as Tolerated Equipment/Supplies:: No Equipment Needed Diet:: As Tolerated Discharge Orders Discharge Orders: Discharge Order (Routine); Ordered 07/23/19 Ordered By: Anu Thompson Other Ambulatory Orders: Basic Metabolic Panel (Routine) Location: None Selected Ordered By: Anu Thompson DS: Summary Status at Discharge Functional status at discharge: uses cane/walker Overall status at discharge: patient is progressing back to baseline Mental Status: mental status grossly normal Speech and Movement: speech and movement normal Mood: congruent mood Affect: normal affect Exam Const General: cooperative, comfortable, no acute distress, frail appearing and ill appearing chronically Nutritional Appearance: thin Orientation: alert, awake and oriented x3 HENMT Head: normal to inspection, normocephalic and atraumatic Mouth: oral mucosae normal Resp Effort & Inspection: normal respiratory effort Auscultation: clear to auscultation bilaterally Cardio Rate: regular rate Rhythm: regular rhythm GI Inspection: normal to inspection and non-distended Palpation: tender in the epigastrum Auscultation: normal bowel sounds Skin General skin exam: no rashes or lesions noted Neuro General: patient alert, patient awake and patient oriented x3 Extrem General: normal to inspection and full ROM Psych Mental Status: mental status grossly normal Speech and Movement: speech and movement normal Mood: congruent mood Affect: normal affect DS: Data Vitals/I&O Vitals and I&O: Vital Signs Temperature 36.3 C L 07/23/19 09:54 Temperature Source Tympanic 07/23/19 09:54 Pulse 56 L 07/23/19 09:54 Pulse Rhythm Regular 07/23/19 01:42 Respiratory Rate 17 07/23/19 09:54 Respiratory Effort Non-Labored 07/23/19 01:42 Respiratory Depth Normal 07/23/19 01:42 Respiratory Pattern Normal 07/23/19 01:42 Blood Pressure 167/74 H 07/23/19 09:54 Blood Pressure Mean 75 07/22/19 12:00 Blood Pressure Position Sitting 07/22/19 10:04 Pulse Oximetry 96 07/23/19 09:54 Oxygen Delivery Method Room Air 07/23/19 09:54 Oxygen Flow Rate 0 07/23/19 09:54 Pain Level 0 07/23/19 09:54 Intake & Output 07/22/19 07/22/19 07/23/19 11:59 23:59 11:59 Intake Total 750 / 750 1000 / 1000 Output Total 275 / 1775 1500 / 1775 1100 / 1100 Balance -275 / -1025 -750 / -1025 -100 / -100 Weight 60.6 kg 59.8 kg 59.8 kg Intake: IV 510 / 510 1000 / 1000 Oral 240 / 240 Output: Urine 275 / 1775 1500 / 1775 1100 / 1100 Other: Urine Color Pale Yellow Yellow Urine Appearance Clear Clear Urine Odor None None Voiding Methods Toilet Toilet Data Completed and Pending Completed studies during hospitalization [Text1]: FINDINGS: The heart size is within normal limits. The aorta is not dilated. There are old right rib fractures. There are underlying fibrotic changes. No infiltrate, effusion or pulmonary edema is seen. Degenerative changes are noted in both shoulders as well as the thoracic spine. IMPRESSION: No acute pulmonary findings. Labs on day of discharge: Labs from last 24 hours 07/23/19 07/23/19 07/22/19 07:00 07:00 12:37 WBC 6.69 RBC 4.17 Hgb 12.5 Hct 36.7 MCV 88.0 MCH 30.0 MCHC 34.1 RDW 12.5 Plt Count 176 MPV 10.8 Immature Gran % 0.1 Neutrophils % 72.7 Lymphocytes % 17.3 Monocytes % 9.1 Eosinophils % 0.7 Basophils % 0.1 Absolute Neutrophils 4.85 Absolute Lymphocytes 1.16 L Absolute Monocytes 0.61 Absolute Eosinophils 0.05 Absolute Basophils 0.01 Sodium 131 L Potassium 4.4 Chloride 96 L Carbon Dioxide 28.0 Anion Gap 7.0 BUN 11 Creatinine 0.80 Estimated GFR/1.73 m2 >= 60.00 Glucose 109 H Lactate 0.6 Calcium 8.7 Magnesium Total Bilirubin AST ALT Alkaline Phosphatase Troponin I Total Protein Albumin Lipase Procalcitonin < 0.1 Urine Color Urine Clarity Urine pH Ur Specific [place] Urine Protein Urine Ketones Urine Blood Urine Nitrite Urine Bilirubin Urine Urobilinogen Ur Leukocyte Esterase Urine RBC Urine WBC Ur Epithelial Cells Urine Crystals Urine Bacteria Urine Casts Urine Mucus Urine Other Ur Culture Indicated? Urine Glucose COVID-19 PCR Nasopharyn COVID-19 PCR Ref Test Perform Site 07/22/19 07/22/19 07/22/19 12:37 11:50 11:28 WBC RBC Hgb Hct MCV MCH MCHC RDW Plt Count MPV Immature Gran % Neutrophils % Lymphocytes % Monocytes % Eosinophils % Basophils % Absolute Neutrophils Absolute Lymphocytes Absolute Monocytes Absolute Eosinophils Absolute Basophils Sodium Potassium Chloride Carbon Dioxide Anion Gap BUN Creatinine Estimated GFR/1.73 m2 Glucose Lactate Calcium Magnesium Total Bilirubin AST ALT Alkaline Phosphatase Troponin I < 0.05 Total Protein Albumin Lipase Procalcitonin Urine Color Yellow Urine Clarity Clear Urine pH 6.0 Ur Specific [place] 1.015 Urine Protein Negative Urine Ketones Negative Urine Blood Negative Urine Nitrite Positive H Urine Bilirubin Negative Urine Urobilinogen 0.2 Ur Leukocyte Esterase Trace H Urine RBC Negative Urine WBC >50 H Ur Epithelial Cells Few Urine Crystals Negative Urine Bacteria Moderate Urine Casts Negative Urine Mucus Negative Urine Other Rare renal Ur Culture Indicated? Yes Urine Glucose Negative COVID-19 PCR Negative Nasopharyn COVID-19 PCR Not Applicable Ref Test Perform Site [facility] hospital lab 07/22/19 07/22/19 07/22/19 10:12 10:12 10:12 WBC 8.31 RBC 4.44 Hgb 13.2 Hct 38.7 MCV 87.2 MCH 29.7 MCHC 34.1 RDW 12.5 Plt Count 193 MPV 10.8 Immature Gran % 0.1 Neutrophils % 73.5 Lymphocytes % 16.4 Monocytes % 9.7 Eosinophils % 0.2 Basophils % 0.1 Absolute Neutrophils 6.10 Absolute Lymphocytes 1.36 Absolute Monocytes 0.81 H Absolute Eosinophils 0.02 Absolute Basophils 0.01 Sodium 124 L* Potassium 4.8 Chloride 88 L Carbon Dioxide 27.9 Anion Gap 8.1 BUN 14 Creatinine 0.89 Estimated GFR/1.73 m2 >= 60.00 Glucose 103 Lactate Calcium 9.0 Magnesium 1.8 Total Bilirubin 0.6 AST 21 ALT 30 Alkaline Phosphatase 86 Troponin I < 0.05 Total Protein 7.1 Albumin 3.6 Lipase 324 Procalcitonin Urine Color Urine Clarity Urine pH Ur Specific [place] Urine Protein Urine Ketones Urine Blood Urine Nitrite Urine Bilirubin Urine Urobilinogen Ur Leukocyte Esterase Urine RBC Urine WBC Ur Epithelial Cells Urine Crystals Urine Bacteria Urine Casts Urine Mucus Urine Other Ur Culture Indicated? Urine Glucose COVID-19 PCR Nasopharyn COVID-19 PCR Ref Test Perform Site 07/22/19 11:28 Urine - Reflex from Urine Culture - Pending 07/22/19 10:45 Blood Blood Culture - Pending 07/22/19 10:12 Blood Blood Culture - Pending Preliminary micro results at discharge 07/22/19 11:28 Urine Culture - Pending Urine - Reflex from 07/22/19 10:45 Blood Culture - Pending Blood 07/22/19 10:12 Blood Culture - Pending Blood [facility] Medical History [place] ([place] kicked by a horse; rib fracture; lacerated liver; fx-pelvis; perf. intestine Atrophic vaginitis (Acute 08/19/11) Pt. states she is unsure Depression DNI (do not intubate) (Acute) DNR (do not resuscitate) (Acute) Essential hypertension Family history of GI malignancy GERD (gastroesophageal reflux disease) Hx of fracture of pelvis (Acute) pt. states she shattered her pelvis in 1970's Hyperlipidemia Macular degeneration (Acute) Mixed incontinence (Acute 08/19/11) [facility] [place] pessary POLST (Physician Orders for Life-Sustaining Treatment) (Acute) Surgical History Abdominal hysterectomy Arthroplasty of knee (05/27/12) LEFT - Pt denies knee replacement Bilateral salpingectomy with oophorectomy Bladder Surgery Cholecystectomy Colonoscopy - MAC (~02/2012) Colonoscopy - MAC (04/22/17) EGD - MAC (04/22/17) KNEE SURGERY (~05/2012) Family History Mother , AGE 84 Heart disease Father , AGE 87 Stroke Heart disease Cancer Sister Stroke Brother Alcohol abuse Cancer Brother Cancer of kidney Son Hyperlipidemia Pulmonary disease Daughter Thyroid disease Daughter Cancer s/p hysterectomy Daughter No problems noted. Daughter No problems noted. Brother No problems noted. Maternal Grandfather No problems noted. Paternal Grandfather No problems noted. Maternal Grandmother No problems noted. Paternal Grandfather No problems noted. Social History Smoking/Tobacco Use Status: Former Tobacco Use Quit Date: 03/17/97 Second Hand Exposure: Yes Alcohol Intake: never Drug use: Never Substance use type: does not use Caregiver/Support person: No Household members: none Housing: house Communication Needs: Hard of Hearing and Corrective Lenses Pets and animals: Yes Pets and animals: dog(s) Sexually active: No Do you think of yourself as: straight/heterosexual Current gender identity: female What is your relationship status?: How often do you talk on the phone with friends or family?: decline to answer How often do you get together with friends or relatives?: decline to answer How often do you attend scientology or advent services?: decline to answer Do you belong to any clubs or organized social groups?: decline to answer Panel score (0-1 are the most socially isolated patients): 0 What type of physical activity do you participate in: none Frequency: does not exercise Carri/Jehovah'S Witness: Oriental Orthodox Special carri needs: No Seatbelt use: always Helmet use: No Drive intox 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
[2019-07-23] MEDS: Lactated Ringers 1,000 ML 80 ML IV (12:36)
--- NOTE | 2019-07-23 12:47 | STOM_PTH ---
PATIENT: Cathy Franklin LOC: [facility]#:[id number] AGE/SX: 84/F ROOM: RE07/22/[address]: Rolan Jiménez : 1935 BED: A DIS: 07/23/2019 SPEC #: [id number] RECD: 07/23/19 13:50 STATUS: AMADOU REDiann #: [id number] HANS: 07/23/19 12:[address]: Manda Pichardo DEPT: Surgical Specimen RECD BY: Yuniel Valladares ENTERED: 07/23/19 13:51 SP TYPE: STOMACH OTHR DR: Sana Camejo MD Tissues: 1 - STOMACH BIOPSY 2 - STOMACH BIOPSY 3 - STOMACH BIOPSY Procedures: GROSS AND MICRO LEVEL 4 Comments: [id number]
--- NOTE | 2019-07-23 13:07 | W.PM.ENDDOP ---
Date of service: 07/23/19 Time of Service: 13:07 Endoscopy Report DATE OF PROCEDURE: 07/23/19 PRE-OP DIAGNOSIS: Epigastric pain POST-OP DIAGNOSIS: same PROCEDURE: EGD with biopsies SURGEON: Manda Pichardo ANESTHESIA: MAC (ASA 2, Onelia Kim, LEGEND MAKER) ESTIMATED BLOOD LOSS: 3 PATHOLOGY: other (Antrum bx, Greater curviture bx, GE junction bx) COMPLICATIONS: None DISPOSITION: floor INDICATIONS: 84 year old female with intermittent epigastric pain and nausea since May. Patient unable to really explain her symptoms well. There do not seem to be any foods that make her symptoms worse. It sounds like she has taken antacids in the past but was not given anything by PCP for her epigastric pain Recommend EGD under sedation Risks, benefits and complications have been reviewed. Complications include but are not limited to bleeding, pain, perforation, sore throat, aspiration, and adverse reaction to the medications. Questions were entertained and answered to their satisfaction and they wished to proceed. No guarantees were given or implied. PROCEDURE START TIME: 12:44 PROCEDURE END TIME: 12:52 FINDINGS: Severe inflammation of stomach MIld inflammation of esophagus Schatzki's ring PROCEDURE DESCRIPTION: After informed consent was obtained the patient was take to the operating room and placed in a supine position. Monitors were applied and a time out was done. The patients name, date of , procedure type, allergies to medications and metal in their body was reviewed. A bite block was placed and the patient was sedated. Once sedated and comfortable the gastroscope was advanced through the oropharynx which was grossly normal into the esophagus. The proximal and mid-esophagus were normal. In the distal esophagus there was mild inflammation noted. There was also a Schatzki's ring indentified. The scope was advanced into the stomach and through the pylorus into the 3rd portion of the duodenum. The duodenum was noted to be normal. The scope was retracted back into the stomach were severe inflammatio was identified throughout. NO ulcers were noted. Biopsies were done to rule out H. pylori. The scope was retro-flexed. The cardia and fundus were noted to be normal. There was no hiatal hernia noted. The scope was retracted back into the esophagus and biopsies were done of the GE junction to rule out Sherwood's. The Schatzki's ring was again identified. The GE junction was at 40 cm. The scope was removed and the patient was woken up and taken back to [facility] in stable condition. Follow up: in 10-14 days. Discussed with Hospitalist. Recommend patient be discharged on Omeprazole 40 mg BID and Mylanta 30 ml po AC.
[2019-07-23 13:21] VITALS: BP 151/68; PULSE 56; RESP 16; TEMP 36.2; O2SAT 96
[2019-07-23] MEDS: cefTRIAXone 1 GM/50 ML BAG IVPB (13:31)
[2019-07-23] MEDS: Enoxaparin 40 MG/0.4 ML SYR SC (13:32)
--- NOTE | 2019-07-23 14:30 | NS.NUTBLAN_ITS ---
Date of service: 07/23/19 Time of Service: 14:30 Nutritional Consult ASSESSMENT: 84 year old female admitted with epigastric pain, UTI, acute hyponatremia with a history of weight loss of 15 lbs in last 30 days. Estimated Needs: 9700-4218 kcal, 60-65 g protein, 1600 ml fluid. Reports poor appetite since previous [facility] admission in June 2019. BMI wnl however 11% weight loss in last 30 days indicates risk of chronic malnutrition. Currently NPO for procedure, however last night she completed 100% of dinner. She reports having enough access to food in home environment but has decreased intake due to lack of appetite. Cathy is at risk for further nutritional decline. Reviewed with her importance of meeting estimated needs. will continue to follow and make warranted recommendations. NUTRITIONAL DIAGNOSIS: involuntary weight loss inadequate nutrient intake malnutrition in view of above INTERVENTION: regular diet, monitor po intake and weight daily consider appetite stimulant MONITORING AND EVALUATION: weight, po intake, labs Time Spent in Nutritional Counseling and Treatment: 15 min spent face to face
--- NOTE | 2019-07-23 15:28 | PHA.REVIEW ---
Pharmacy Admission Review - Admission Clinical Review (Last Reviewed 07/23/19 @ 10:36 by Anu Thompson NP) Epigastric pain (Acute) Discharge planning issues (Acute) DVT prophylaxis (Acute) Acute hyponatremia (Acute) Urinary tract infection (Acute) Abdominal pain (Acute) Essential hypertension (Acute 01/14/13) Hyperlipidemia (Acute) ciprofloxacin [From Cipro] Allergy (Intermediate, Verified 07/22/19 10:09) Lips and face burn, feels shaky, arm tingly codeine Adverse Reaction (Intermediate, Verified 07/22/19 10:09) Dizziness/Lightheade lovastatin Adverse Reaction (Intermediate, Verified 07/22/19 10:09) myalgias oxycodone Adverse Reaction (Intermediate, Verified 07/22/19 10:09) NAUSEA, GI UPSET azithromycin Adverse Reaction (Verified 07/22/19 10:09) cramping, anorexia doxycycline Adverse Reaction (Verified 07/22/19 10:09) Nausea, Vomiting hydrocodone Adverse Reaction (Verified 07/22/19 10:09) unknown Height 5 ft Weight 59.8 kg - Renal Dosing Renal Dosing: BUN 11 mg/dL (7-18) 07/23/19 07:00 Creatinine 0.80 mg/dL (0.55-1.02) 07/23/19 07:00 Medications needing adjustments: Reviewed (CRCL ~39ML/MIN) - Anticoagulation Anticoagulation: Hgb 12.5 g/dL (12.0-15.5) 07/23/19 07:00 Hct 36.7 % (36.0-46.0) 07/23/19 07:00 Plt Count 176 x1000/uL (130-400) 07/23/19 07:00 Creatinine 0.80 mg/dL (0.55-1.02) 07/23/19 07:00 DVT Prohphylaxis: Reviewed Medications: Enoxaparin Therapeutic Anticoagulation: N/A - Opiate Usage Evaluate Pain Scale/Pains Meds: N/A - Relevant Labs Sodium 131 mmol/L (136-145) L 07/23/19 07:00 Potassium 4.4 mmol/L (3.5-5.1) 07/23/19 07:00 Chloride 96 mmol/L (98-107) L 07/23/19 07:00 Magnesium 1.8 mg/dL (1.8-2.4) 07/22/19 10:12 Electrolytes, C-Reactive P, ESR: Reviewed - DM Control DM Control: Glucose 109 mg/dL (74-106) H 07/23/19 07:00 Insulin Dosing: N/A - Heart Failure/NE Heart Failure/NE: Troponin I < 0.05 ng/Ml (<0.06) 07/22/19 12:37 - BP Control BP Control: Blood Pressure 151/68 Blood Pressure 167/74 If elevated: Reviewed - Qtc Review If Elevated: Reviewed (401) - Current meds Current Medication Order Review: Intervened (omeprazole PO and Pantoprazole IV both ordered, sent provider a message)
[2019-07-23 15:45] VITALS: BP 157/71; PULSE 62; RESP 18; TEMP 36.5; O2SAT 96
--- NOTE | 2019-07-23 17:04 | PT.INIE ---
Date of service: 07/23/19 PT Notes Visit Reasons: UTI, HYPONATREMIA Physical Therapy Inpatient Initial Evaluation Date: 07/23/2019 Referring Doctor: Rolan Cardona MD PT Orders: PT CONSULT: Safety consult for discharge Precautions: Fall. Standard. Activity as tolerated. Patient Profile/Admitting Diagnosis: Patient is an 84-year-old female who presented to the ED on 07/22/2019 with chief complaints of nausea, abdominal pain, and weakness 7 days preceding ED admission. Patient is diagnosed with urinary tract infection, acute hyponatremia, abdominal pain, essential hypertension, and hyperlipidemia. She is status post EGD on today. PMHX: Medical History [place]) kicked by a horse; rib fracture; lacerated liver; fx-pelvis; perf. intestine Atrophic vaginitis (Acute 08/19/11) Pt. states she is unsure Depression DNI (do not intubate) (Acute) DNR (do not resuscitate) (Acute) Essential hypertension Family history of GI malignancy GERD (gastroesophageal reflux disease) Hx of fracture of pelvis (Acute) pt. states she shattered her pelvis in 1970's Hyperlipidemia Macular degeneration (Acute) Mixed incontinence (Acute 08/19/11) [facility] [place] : pessary POLST (Physician Orders for Life-Sustaining Treatment) (Acute) Surgical History Abdominal hysterectomy Arthroplasty of knee (05/27/12) LEFT - Pt denies knee replacement Bilateral salpingectomy with oophorectomy Bladder Surgery Cholecystectomy Colonoscopy - MAC (~02/2012) Colonoscopy - MAC (04/22/17) EGD - MAC (04/22/17) KNEE SURGERY (~05/2012) Social History/Home Situation: Patient lives alone in a private home with 1 step to enter without rails. She states she does not have any steps once inside the house. She highlights that she has kids who live close by who can help her with anything as needed. She is independent with all aspects of ADLs prior to admission and her son drives her to all the places she needs to go to and does her grocery shopping for her. She did not use any assistive ambulatory device nor adaptive equipment prior to admission. Equipment Owned/DME: None Subjective: Patient is agreeable to a PT consult. She states that she has had falls in the past although she is not sure how many times that has happened. She voices that none of them caused any issues nor any broken bones. She is confident that her kids will be able to help her once she goes home. She states that she does not have a front wheeled walker at home. Objective: General Observation: Telemetry monitoring in place. Mental Status: Alert and oriented x4 Pain: None reported ROM: Right Upper Extremity: Shoulder Flexion WFL. Shoulder abduction WFL. Elbow flexion WFL. Wrist flexion WFL. Opening and closing of hand WFL. Left Upper Extremity: Shoulder Flexion WFL. Shoulder abduction WFL. Elbow flexion WFL. Wrist flexion WFL. Opening and closing of hand WFL. Right Lower Extremity: Hip flexion WFL. Hip abduction WFL. Knee flexion WFL. Ankle dorsiflexion WFL. Ankle plantarflexion WFL. Left Lower Extremity: Hip flexion WFL. Hip abduction WFL. Knee flexion WFL. Ankle dorsiflexion WFL. Ankle plantarflexion WFL. Strength: Right Upper Extremity: Shoulder flexors 4/5. Shoulder abductors 4/5. Elbow flexors 5/5. Elbow extensors 4/5. Director Of Business Continuity strong. Left Upper Extremity: Shoulder flexors 4/5. Shoulder abductors 4/5. Elbow flexors 5/5. Elbow extensors 4/5. Director Of Business Continuity strong. Right Lower Extremity: Hip flexors4/5. Hip abductors 4/5. Knee flexors 5/5. Knee extensors 4/5. Ankle dorsiflexors 4/5. Ankle plantarflexors 4/5. Left Lower Extremity:Hip flexors4/5. Hip abductors 4/5. Knee flexors 5/5. Knee extensors 4/5. Ankle dorsiflexors 4/5. Ankle plantarflexors 4/5. Sensation: Intact as to pain and pressure on bilateral lower extremities. Bed Mobility/Transfers: Rolling supervision Supine to sit supervision, uses BUE for support Sit to supine supervision, uses BUE for support Sit to stand supervision without assistive device Stand to sit supervision without assistive device Bed to chair supervision without assistive device Chair to bed supervision without assistive device Gait: Patient was able to tolerate level surface ambulation of 300 feet without an assistive ambulatory device with standby assist. However she demonstrated loss of balance x 2 during directional changes. She states that she has not eaten anything since 10:00 the prior night and may be a little weak. She is agreeable though to using a front wheeled walker to be able to go home today safely. Balance: Static Sitting: Normal Dynamic Sitting: Normal Static Standing: Good Dynamic Standing: Fair Special Tests: Mobility Limitations Standardized Measure [facility] 6 clicks Basic Mobility Inpatient Short Form: Raw Score: 22 CMS Score: 21% deficit 4 stage balance test: Patient was able to maintain feet together, semi-tandem, and full tandem stance without any loss of balance but was unable to safely maintain 1 legged stance on either leg indicating continued risk for falls without an assistive device. Informed Consent/Education: Patient instructed in purpose of PT consult and plan of care. Assessment: Impairment in balance, functional mobility decline, difficulty with walking, need for assistive device with long distance ambulation. Patient may go home alone today using a front wheeled walker to reduce fall risk at home. Patient presents with clinical signs and symptoms consistent with current/admitting diagnoses that have resulted to mobility limitations, gait instability, generalized weakness, and impairment of motor control as demonstrated by the following impairment level findings: 1. Decreased strength to B LE major muscle groups 2. Impaired standing balance Impairments are contributing to the following functional limitations: 1. Inability to safely ambulate long distances without assistive device 2. Increase completion time for mobility ADL performance 3. Increased fall risk Patient is assessed as a [id number] moderate complexity based on the following: History: 84-year-old female with impairment level findings, functional limitations, and past medical history as listed above Examination: Demonstrable impairment in strength, balance, and range of motion with underlying impairments and functional limitations as documented above Presentation: Stable Decision Makin moderate complexity Goals: N/A. PT consult only. PT intervention: PT session today consisted of initial evaluation as well as education/training with safe mobility ADL performance using front wheeled walker. DISCHARGE RECOMMENDATIONS: Patient will benefit from the use of a front wheeled walker in order to reduce fall risk at home. TREATMENT CODE/TIME: 24309 x 34 minutes, 48995 x 16 minutes beginning at 2:20 PM and 17:04 PM. Thank you very much for this referral. Alyx Reyes PT, DPT, CLT [facility], [place]
--- NOTE | 2019-07-23 17:23 | PDOC.CMIN ---
- If Service Date Differs Date of service: 07/23/19 Time of Service: 17:23 Care Management Initial Assess REASON FOR HOSPITALIZATION:: UTI, Hyponatremia PAST MEDICAL HISTORY/PAST SURGICAL HISTORY:: Medical History . [place]ident [place] (Inactive). kicked by a horse; rib fracture; lacerated liver; fx-pelvis; perf. intestine. Atrophic vaginitis (Acute 08/19/11). Pt. states she is unsure. Depression. DNI (do not intubate) (Acute). DNR (do not resuscitate) (Acute). Essential hypertension. Family history of GI malignancy. GERD (gastroesophageal reflux disease). Hx of fracture of pelvis (Acute). pt. states she shattered her pelvis in s. Hyperlipidemia. Macular degeneration (Acute). Mixed incontinence (Acute 08/19/11). [facility] [place] : pessary. POLST (Physician Orders for Life-Sustaining Treatment) (Acute). Surgical History . Abdominal hysterectomy. Arthroplasty of knee (05/27/12). LEFT - Pt denies knee replacement. Bilateral salpingectomy with oophorectomy. Bladder Surgery. Cholecystectomy. Colonoscopy - MAC (~02/2012). Colonoscopy - MAC (04/22/17). EGD - MAC (04/22/17). KNEE SURGERY (~05/2012) PREVIOUS FUNCTIONAL STATUS/SOCIAL/FAMILY SUPPORTS:: Cathy lives alone in [place]. Her adult children live nearby, and support her when she needs anything. She has lived alone since 2005. She was active in horse back riding until about 5 years ago, when she was kicked by her horse. She has a small dog at home, which she reported is a good support for her. She is independent at baseline, but no longer drives. CURRENT FUNCTIONAL STATUS:: Cathy was sitting on the edge of her bed when CM met with her. She reported that she was feeling better and would prefer to be home. She had an EGD today, and will follow up in two weeks with surgical services. She worked well with PT, who recommends a FWW, which CM will coordinate. She was pleasant and engaged, and stated that her son will pick her up when she is ready for discharge. CM will continue to follow. ADVANCE DIRECTIVES:: [employer] on file, Christina listed as agent. Has patient been provided with information about the portal?: No Did the patient sign up for the portal?: No CODE STATUS:: DNR/DNI INSURANCE COVERAGE / FINANCIAL ISSUES:: MCR, Financial Assist 100%, [employer] CURRENT HOME/COMMUNITY SERVICES/EQUIPMENT:: Cathy currently has no services or equipment. CM will coordinate a FWW and a referral to [facility] for options counseling upon discharge. PRIMARY CARE PHYSICIAN:: Sana Camejo POTENTIAL DISCHARGE NEEDS:: FWW, referral to [facility] for options counseling, follow up appt PATIENT/FAMILY EDUCATION NEEDS:: Review discharge instructions regarding activity levels and medications, discussion of self care needs including ask me three and goals of care. ANTICIPATED BARRIERS TO DISCHARGE:: None identified at this time. TRANSPORTATION:: Cathy's son will transport via private vehicle. PLAN:: Anticipate Cathy will return home with no additional services when medically cleared. CM will coordinate a FWW and a referral to [facility] for OC. She will follow up with surgical services in about 2 weeks. She will be driven home via private vehicle by family. CM will continue to follow.
--- NOTE | 2019-07-23 17:40 | PDOC.CMDIS ---
- If Service Date Differs Date of service: 07/23/19 Time of Service: 17:41 LACE Index Scoring Tool - Questions: Length of Stay (in days): 2 Acuity (Admit via E.D.?): Yes E.D. Visits: 3 - Answers: Total Score: 8 Risk of Readmission: Low Risk Care Management Discharge Reason for Hospitalization: UTI, Hyponatremia Discharge Plan: Cathy will return home with no additional services at this time. CM coordinated a FWW and a referral to [facility] for OC prior to discharge. She will be transported via private vehicle by family when ready. She will follow up with surgical services within 2 weeks. She is happy to be returning home. Patient/Family Education Needs: Review discharge instructions regarding activity levels and medications, discussion of self care needs including ask me three and goals of care. Services Needed at Discharge: DME Agency ([facility])
== END 2019-07-23 17:40 | disposition home or self-care (01) ==
LOC: ER 13:07 → MS 13:34
PROVIDERS: Nurse Practitioner Acute Care; Surgery; Admitting Provider Internal Medicine; Emergency Provider Registered Nurse Emergency; PCP Family Medicine; Visit Provider Internal Medicine
PROC: 0DJ68ZZ Inspection of Stomach, Via Natural or Artificial Opening Endoscopic (ICD-10-PCS; CPT 43235; principal; 2019-07-23 12:15)
DX: E87.1 Hypo-osmolality and hyponatremia (principal); N39.0 Urinary tract infection, site not specified; R10.13 Epigastric pain; K29.00 Acute gastritis without bleeding; K31.89 Other diseases of stomach and duodenum; K22.70 Barrett's esophagus without dysplasia; I10 Essential (primary) hypertension; E78.5 Hyperlipidemia, unspecified; K21.9 Gastro-esophageal reflux disease without esophagitis
CPT/HCPCS: 43239; 36415; 80048; 80053; 83690; 84145; 87040; 88305; 93005; 96361; 96365; 97162; 97530; 99212; 99220; 99239; 99252; 99285; J1650; U0003; 71045; 81003; 81015; 83605; 83735; 84484; 85025; 87086; 93010; 99217; 99284; G0378; J0696; J2704

== ENCOUNTER 2019-07-26 15:03 | Emergency (ER) | payer MEDICARE, OTHER, SELFPAY ==
[2019-07-26] VITALS (16 sets, daily range): BP systolic 140–154; BP diastolic 62–75; PULSE 63–85; RESP 12–26; TEMP 36.4–36.7; O2SAT 94–98
--- NOTE | 2019-07-26 15:43 | W.ED.GENAD ---
Discharge Plan Disposition Patient Disposition: HOME Condition: Stable Discharge Details Chief Complaint: Abd Prob Clinical Impression: Gastritis, Acute hyponatremia Primary Care Provider: Sana Camejo ED Provider: Rolan Hoffman Home Meds and New Rx's Prescriptions: Continued polyethylene glycol 3350 [Miralax] 17 gram/dose powder 17 gm PO DAILY PRN (Reason: constipation) Qty: 238 RF: 2 Hold Instructions: Home Medication placed on hold at Doctor's office simvastatin 5 mg tablet 5 mg PO QHS Qty: 90 RF: 3 PreserVision AREDS [id number] rdyy-av-dntl tablet 1 tab PO BID Qty: 30 RF: 0 acetaminophen [Tylenol Extra Strength] 500 mg tablet 500 mg PO QID PRN (Reason: pain) Qty: 30 RF: 0 lorazepam 0.5 mg tablet 0.25 mg PO DAILY Qty: 25 RF: 0 albuterol sulfate 90 mcg/actuation HFA aerosol inhaler 1 - 2 inh IH Q6H PRN (Reason: shortness of breath or wheezing) Qty: 8.5 RF: 6 metoprolol tartrate 50 mg tablet 50 mg PO BID Qty: 180 RF: 4 omeprazole 40 mg capsule,delayed release(DR/EC) 40 mg PO BID Qty: 14 RF: 0 Discharge Instructions Instructions: Gastritis (ED), Hyponatremia (ED) Additional Instructions: Please try to increase salt in your diet, when hydrating consider Pedialyte or Gatorade or broth. May use MiraLAX once daily or continue your prunes. Rest activities as tolerated. Have outpatient labs retested in 2 days. Use Mylanta and omeprazole prescribed and recommended by surgery. Please have prompt follow-up with your primary care for reevaluation. Return to the emergency room for worsening, concerns or alarming symptoms sooner if needed as discussed Discharge Data Discharge Date/Time-TO BE ENTERED AT DEPARTURE: 07/26/19 20:15 Medical Decision Making <FADIA Engle - Last Filed: 07/27/19 08:13> 84-year-old female with recent hospitalization, endoscopy resulting in gastritis and esophagitis presents with continuation of epigastric discomfort, now with mild left lower quadrant discomfort and decreased bowel movements. Given recent hospitalization, certainly concerning for bowel obstruction however examination is not exactly consistent with bowel obstruction. She was being treated with antibiotics for UTI, will recheck urine as well. Given her epigastric discomfort and age will obtain a single troponin and EKG. In the meantime patient will be given 1 L IV fluid, Zofran and p.o. Mylanta. Medical Records Medical records reviewed: Yes I reviewed the patient's medical records. <FADIA Disla - Last Filed: 07/27/19 20:26> Received signout for this 84-year-old patient presenting for onset of epigastric pain which returned today. Patient was recently hospitalized for diagnosis of epigastric pain and acute hyponatremia. Patient presented with a sodium of 121. Patient ultimately had endoscopy during her hospital stay revealing esophagitis and gastritis. Patient had no obvious ulcer. Patient was discharged with a plan to take omeprazole as well as Mylanta. Patient reports she has been compliant with omeprazole in the last few days since discharge but has not taken any Mylanta. Patient reports 8 out of 10 abdominal pain in the epigastric area began this afternoon. Patient does report she has had some decreased bowel movements in the last 24 hours. Patient reports she has been pushing fluids by mouth. Patient denies significant nausea or vomiting. Denies any fevers or chills. Patient concerned with the return of pain. Patient denies any headache or dizziness. Denies chest pain, difficulty breathing or shortness of breath or wheezing. Patient signed out pending CT scan as well as labs and reevaluation. Patient did receive Mylanta prior to signout. Reevaluation of the patient at this time reveals Mylanta has entirely resolved her complaints of abdominal pain. On exam patient does have persistent upper abdominal discomfort without obvious peritoneal signs, rebound or guarding. No CVA tenderness noted bilaterally. Patient breath sounds are clear. Patient appears comfortable in the bed. Labs reveal no leukocytosis. Sodium noted to be 125. Kidney function normal. Liver function normal. Patient's hyponatremia had improved to 131 on discharge 3 days ago. Patient does report she continues to drink water. Patient given 1 L of normal saline. Will recheck BMP. Patient's troponin is normal. Patient's EKG reveals sinus rhythm with heart rate of 65. No significant ST segment changes. This was reviewed with Dr. Alison Smith Urinalysis negative for nitrates and negative for leukocyte Estrace today. CT scan of abdomen and pelvis revealed FINDINGS: Lungs: Stable reticular nodular densities at the lung bases. Liver: Unremarkable. Gallbladder and bile ducts: Prior cholecystectomy. Mild biliary dilation may be postsurgical in etiology. Pancreas: Unremarkable. Spleen: Stable hypodensity in the spleen. Adrenals: Unremarkable. Kidneys and ureters: Stable mild right hydronephrosis. Stomach and bowel: Nondilated, fluid-filled small bowel loops are seen. No definite evidence of obstruction. There is colonic diverticulosis. No evidence of acute diverticulitis. Appendix: No evidence of appendicitis. Intraperitoneal space: Tiny amount of free fluid in the pelvis. No free air. Vasculature: There are coronary artery calcifications. No aortic aneurysm. No aortic dissection. There are atherosclerotic vascular calcifications. Lymph nodes: No pathologically enlarged lymph nodes. Bladder: Unremarkable as visualized. Reproductive: Prior hysterectomy. Bones/joints: There is generalized osteopenia. There are multilevel degenerative changes in the spine. Postsurgical changes of the pubic ramus. No acute fracture. No destructive bone lesion. Soft tissues: Unremarkable. Other findings: There is streak artifact in the pelvis. IMPRESSION: 1. Findings suggestive of ileus or nonspecific enteritis. This is more prominent than on the prior study. 2. Stable mild right hydronephrosis. 3. Coronary artery calcifications. 4. Additional incidental/non-emergent findings, as above. Patient continues to feel improved. Patient continues to have mild abdominal discomfort elicited with palpation of the epigastric area. Patient's vital signs revealed mild hypertension with no tachycardia, tachypnea or hypoxia. Patient is afebrile. I did discuss patient CT results as well as hyponatremia. I did offer admission to the hospital patient declines admission at this time. Patient has capacity to make this decision. Would prefer to follow-up with labs for noted hyponatremia, continue Mylanta q. before meals and omeprazole as well as her current antibiotic she has been taking for urinary tract infection. Regarding patient's hyponatremia patient was encouraged to hydrate using electrolyte-containing fluids specifically broth, Pedialyte or Gatorade. Encouraged to eat salty foods. Patient's repeat BMP reveals mild improvement of sodium to 126. Will provide patient a lab slip for recheck of sodium in 2 days. Patient placed on PCP follow-up list for reevaluation within next 2 days. Discussed bowel regimen. Patient reports she has been using MiraLAX as well as prunes in her diet to assist with bowel movements. Discussed precautions for which patient should have return. Patient reports her understanding. Continues to request discharge home. I did speak with the patient's daughter regarding this plan of care and her medical findings as well as encouraging dietary changes for her hyponatremia and prompt PCP follow-up. Daughter also agrees with this plan of care. The patient was stable and requested discharge. Prior to discharge, my usual and customary return precautions were reviewed with the patient - this included follow-up instructions and reasons to return to the Emergency Department if conditions worsens, does not improve as expected, or other new concerns arise. HPI <FADIA Engle - Last Filed: 07/27/19 08:13> General Mode of arrival: ambulatory. Date/Time Provider Initiated Documentation: 07/26/19 15:27. Limitations to Documentation: no limitations. Information obtained by: patient. HPI Narrative: This is a 84-year-old female with a history of depression, DNR, DNI, hypertension, GERD, hyperlipidemia, recent admission and discharge, 4 days ago status post endoscopy resulting in diagnosis of esophagitis and gastritis. Patient reports that she lives with her family at home. She reports that she has not had a bowel movement over the past 4 days since discharge continues to have epigastric discomfort and now associated left lower quadrant pain. She later tells me she had 1 small bowel movement yesterday but none today, unable to pass gas. She denies fever, chest pain, vomiting. Admits to mild nausea. Denies back pain. Denies dysuria, hematuria, diarrhea. Patient is a rather vague and poor historian. Related Data Home Medications Medication Instructions Recorded Confirmed metoprolol tartrate 50 mg tablet 50 mg PO BID #180 tab-cap 12/30/18 07/26/19 albuterol sulfate 90 mcg/actuation 1 - 2 inh IH Q6H PRN #8.5 gm 01/14/19 07/26/19 aerosol inhaler polyethylene glycol 3350 17 17 gm PO DAILY PRN #238 gm 06/18/19 07/26/19 gram/dose oral powder simvastatin 5 mg tablet 5 mg PO QHS #90 tab-cap 07/08/19 07/26/19 vitamins A,C,F-xork-jrvfqz 7,160 1 tab PO BID #30 tab 07/08/19 07/26/19 unit-113 mg-100 unit tablet acetaminophen 500 mg tablet 500 mg PO QID PRN #30 tab 07/14/19 07/26/19 lorazepam 0.5 mg tablet 0.25 mg PO DAILY #25 tab 07/14/19 07/26/19 omeprazole 40 mg PO BID #14 cap 07/24/19 07/26/19 Previous Rx's Medication Instructions Recorded metoprolol tartrate 50 mg tablet 50 mg PO BID #180 tab-cap 12/30/18 albuterol sulfate 90 mcg/actuation 1 - 2 inh IH Q6H PRN #8.5 gm 01/14/19 aerosol inhaler polyethylene glycol 3350 17 17 gm PO DAILY PRN #238 gm 06/18/19 gram/dose oral powder simvastatin 5 mg tablet 5 mg PO QHS #90 tab-cap 07/08/19 vitamins A,C,T-nzly-xrugog 7,160 1 tab PO BID #30 tab 07/08/19 unit-113 mg-100 unit tablet acetaminophen 500 mg tablet 500 mg PO QID PRN #30 tab 07/14/19 lorazepam 0.5 mg tablet 0.25 mg PO DAILY #25 tab 07/14/19 omeprazole 40 mg PO BID #14 cap 07/24/19 Allergies Allergy/AdvReac Type Severity Reaction Status Date / Time ciprofloxacin [From Cipro] Allergy Intermediate Lips and Verified 07/26/19 15:28 face burn, feels shaky, arm tingly codeine AdvReac Intermediate Dizziness/L Verified 07/26/19 15:28 ightheade lovastatin AdvReac Intermediate myalgias Verified 07/26/19 15:28 oxycodone AdvReac Intermediate NAUSEA, GI Verified 07/26/19 15:28 UPSET azithromycin AdvReac cramping, Verified 07/26/19 15:28 anorexia doxycycline AdvReac Nausea, Verified 07/26/19 15:28 Vomiting hydrocodone AdvReac unknown Verified 07/26/19 15:28 General Stated Complaint: Abd Prob MELINDA: 3 Review of Systems <FADIA Engle - Last Filed: 07/27/19 08:13> Constitutional Constitutional: Reports fatigue, Denies fever(s) and Denies headache(s) Eyes Eyes: Denies eye discharge ENT Ears, Nose, Mouth, and Throat: Denies headache(s) and Denies sore throat Cardiovascular Cardiovascular: Denies chest pain and Denies dyspnea Respiratory Respiratory: Denies cough and Denies dyspnea Gastrointestinal Gastrointestinal: Reports abdominal pain, Reports constipation, Denies diarrhea, Reports nausea and Denies vomiting Genitourinary Genitourinary: Denies dysuria Musculoskeletal Musculoskeletal: Denies back pain Integumentary/Breasts Skin/Breast: Denies rash Neurologic Neurologic: Denies headache(s) Endocrine Endocrine: Reports fatigue Hematologic/Lymphatic Hematologic/Lymphatic: Denies easy bleeding and Denies easy bruising PFS <FADIA Engle - Last Filed: 07/27/19 08:13> Medical History [place] kicked by a horse; rib fracture; lacerated liver; fx-pelvis; perf. intestine Atrophic vaginitis (Acute 08/19/11) Pt. states she is unsure Depression DNI (do not intubate) (Acute) DNR (do not resuscitate) (Acute) Essential hypertension Family history of GI malignancy GERD (gastroesophageal reflux disease) Hx of fracture of pelvis (Acute) pt. states she shattered her pelvis in 1970's Hyperlipidemia Macular degeneration (Acute) Mixed incontinence (Acute 08/19/11) [facility] : pessary POLST (Physician Orders for Life-Sustaining Treatment) (Acute) Surgical History Abdominal hysterectomy Arthroplasty of knee (05/27/12) LEFT - Pt denies knee replacement Bilateral salpingectomy with oophorectomy Bladder Surgery Cholecystectomy Colonoscopy - MAC (~02/2012) Colonoscopy - MAC (04/22/17) EGD - MAC (04/22/17) KNEE SURGERY (~05/2012) Family History Mother , AGE 84 Heart disease Father , AGE 87 Stroke Heart disease Cancer Sister Stroke Brother Alcohol abuse Cancer Brother Cancer of kidney Son Hyperlipidemia Pulmonary disease Daughter Thyroid disease Daughter Cancer s/p hysterectomy Daughter No problems noted. Daughter No problems noted. Brother No problems noted. Maternal Grandfather No problems noted. Paternal Grandfather No problems noted. Maternal Grandmother No problems noted. Paternal Grandfather No problems noted. Social History Smoking/Tobacco Use Status: Former Tobacco Use Quit Date: 03/17/97 Second Hand Exposure: Yes Alcohol Intake: never Drug use: Never Substance use type: does not use Caregiver/Support person: No Household members: none Housing: house Communication Needs: Hard of Hearing and Corrective Lenses Pets and animals: Yes Pets and animals: dog(s) Sexually active: No Do you think of yourself as: straight/heterosexual Current gender identity: female What is your relationship status?: How often do you talk on the phone with friends or family?: decline to answer How often do you get together with friends or relatives?: decline to answer How often do you attend synagogue or scientology services?: decline to answer Do you belong to any clubs or organized social groups?: decline to answer Panel score (0-1 are the most socially isolated patients): 0 What type of physical activity do you participate in: none Frequency: does not exercise Carri/Gnosticist: Muslim Special carri needs: No Seatbelt use: always Helmet use: No Drive 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 Do you feel safe at home: Yes Do you feel safe in your relationship?: Yes Exam <FADIA Engle - Last Filed: 07/27/19 08:13> Const General: cooperative, healthy appearing, comfortable and no acute distress Orientation: alert and awake [facility] Head: normal to inspection, normocephalic and atraumatic Mouth: moist mucous membranes Throat: posterior oropharynx normal Eyes Conjunctivae: conjunctivae normal Neck Neck: normal visual inspection, full ROM, no lymphadenopathy, trachea midline, supple and nontender Resp Effort & Inspection: normal respiratory effort and able to speak in complete sentences Auscultation: clear to auscultation bilaterally Cardio Rate: regular rate Rhythm: regular rhythm GI Inspection: normal to inspection Palpation: soft, not firm, no guarding, not rigid and tender (Mild epigastric and left lower quadrant discomfort) with no rebound tenderness Auscultation: abnormal bowel sounds (Slightly decreased lower quadrants) Back/Spine/Pelvis Back: No back tenderness Skin General skin exam: no rashes or lesions noted Neuro General: patient alert, patient awake, moves all extremities and no focal motor deficits Sensory Exam: no sensory deficits noted Extrem General: normal to inspection, full ROM, no pedal edema and no calf tenderness Psych Appearance: grossly normal Mental Status: mental status grossly normal Course <FADIA Engle - Last Filed: 07/27/19 08:13> Vital Signs Vital signs: Vital Signs Temperature 36.4 C L 07/26/19 15:16 Pulse 66 07/26/19 15:16 Respiratory Rate 16 07/26/19 15:16 Blood Pressure 140/75 07/26/19 15:16 Pulse Oximetry 98 07/26/19 15:16 Temperature 36.4 C L 07/26/19 15:16 Temperature Source Skin 07/26/19 15:16 Pulse 66 07/26/19 15:16 Respiratory Rate 16 07/26/19 15:16 Respiratory Effort Non-Labored 07/26/19 15:20 Blood Pressure 140/75 07/26/19 15:16 Blood Pressure Position Sitting 07/26/19 15:16 Pulse Oximetry 98 07/26/19 15:16 Oxygen Delivery Method Room Air 07/26/19 15:16 Oxygen Flow Rate 0 07/26/19 15:16 Sign Out <FADIA Engle - Last Filed: 07/27/19 08:13> Sign Out Data: Sign Out Comment: At time of patient transfer of care, no laboratory values had resulted. Awaiting renal function testing prior to initiation of IV contrast for CT. Essentially work-up has just been initiated, will need to evaluate patient, labs, and come up with disposition. Last updated by Rolan Hoffman PA at 07/26/19 16:30
--- NOTE | 2019-07-26 15:45 | DI.CT_ITS ---
EXAM: CT ABDOMEN PELVIS W CLINICAL HISTORY: Left lower quadrant pain, no bm in 4 days COMPARISON: CT CT ABDOMEN PELVIS WO from 06/27/2019 FINDINGS: CT examination of the abdomen and pelvis was performed with a bolus infusion of 90 cc's of Omnipaque 350 and ingestion of dilute barium. Images obtained through the lung bases show minimal areas of sca rring or atelectasis. Coronary artery calcifications noted. Gallbladder has been surgically removed. No biliary dilatation. Unremarkable appearance of liver an d spleen with small incidental apparent splenic cyst, unchanged from CT of June 26. The pancreas is unremarkable in appearance. Calcified atheromatous plaque of the abdominal aorta noted, no aneury sm. Adrenals and kidneys are unremarkable. No evidence of urinary tract calcification or obstructio n. Urinary bladder is nearly empty and obscured by artifact from pelvic fixation devices. Appendix is normal. Borderline dilated small bowel, nonspecific, may represent a slight ileus. No e vidence of obstruction. No evidence of diverticulitis. No abdominal or pelvic adenopathy. IMPRESSION: No evidence of acute intra-abdominal process. Question slight ileus.
[2019-07-26 16:09] LABS: Abs Immature Grans 0.01 k/cumm (0.0-0.09); Absolute Basophil Count 0.01 k/cumm (0.0-0.2); Absolute Eosinophil Count 0.04 k/cumm (0.0-0.7); Absolute Lymphocyte Count 1.54 k/cumm (1.2-3.4); Absolute Monocyte Count 0.69 k/cumm (0.11-0.7); Absolute Neutrophil Count 3.91 k/cumm (1.2-6.7); Basophils % 0.2; Eosinophils % 0.6; HCT 37.2 % (36.0-46.0); HGB 12.9 g/dL (12.0-15.5); Immature Grans % 0.2 %; Lymphocytes % 24.8; Mean Corp. HGB Concentration 34.7 g/dL (32.0-36.0); Mean Corpuscular Hemoglobin 30.3 pg (27.0-33.0); Mean Corpuscular Volume 87.3 fL (80-95); Mean Platelet Volume 10.6 fL (8.0-11.0); Monocytes % 11.1; Neutrophils % 63.1; Platelet Count 211 x1000/uL (130-400); RBC 4.26 m/cumm (4.00-5.20); RBC Distribution Width 12.3 % (11.7-14.6)
[2019-07-26] MEDS: Ondansetron 4 MG/2 ML VIAL IVP (16:11)
[2019-07-26] MEDS: Normal Saline 1,000 ML 1000 ML IV (16:13)
[2019-07-26] MEDS: Mylanta Suspension 30 ML CUP 20 ML PO (16:16)
[2019-07-26 16:32] LABS: ALT 32 U/L (14-59); AST 26 U/L (15-37); Albumin 3.6 g/dL (3.4-5.0); Alkaline Phosphatase 85 U/L (46-116); Anion Gap 6.1 mmol/L (3-11); BUN 15 mg/dL (7-18); Bilirubin, Total 0.5 mg/dL (0.2-1.0); CO2 27.9 mmol/L (21.0-32.0); CREATININE 1.02 mg/dL (0.55-1.02); Calcium 9.2 mg/dL (8.5-10.1); Chloride 91 mmol/L (98-107); Estimated GFR 51.88 (mL/min/1.73m2); Glucose 99 mg/dL (74-106); Lipase 244 U/L (73-393); Magnesium 1.8 mg/dL (1.8-2.4); Potassium 4.1 mmol/L (3.5-5.1); Sodium 125 mmol/L (136-145); Total Protein 7.2 g/dL (6.4-8.2)
[2019-07-26 16:33] LABS: Troponin I < 0.05 ng/Ml (<0.06)
[2019-07-26 16:37] LABS: Bilirubin Negative (Negative); Blood Negative (Negative); Clarity Clear (Clear); Glucose Negative (Negative); Ketones 15 mg/dL (Negative); Leukocyte Esterase Negative (Negative); Nitrite Negative (Negative); Urobilinogen 0.2 EU/dL (Up TO 0.2)
[2019-07-26] MEDS: Breeza Beverage 473 ML BTL PO ×2 (16:44→16:45)
[2019-07-26] MEDS: Omnipaque 350 MG/ML 50 ML BTL PO (16:44)
[2019-07-26] MEDS: Omnipaque 350 MG/ML 100 ML BTL IJ (17:57)
[2019-07-26] MEDS: Normal Saline - Diluent 50 ML VIAL IV (17:58)
--- NOTE | 2019-07-26 18:37 | DI.VRAD_ITS ---
PROCEDURE INFORMATION: Exam: CT Abdomen And Pelvis With Contrast Exam date and time: 07/26/2019 6:07 PM Age: 84 years old Clinical indication: Abdominal pain; Prior surgery TECHNIQUE: Imaging protocol: Computed tomography of the abdomen and pelvis with intravenous contrast. Contrast material: OMNI 350; Contrast volume: 90 ml; Contrast route: LAC; COMPARISON: CT CHEST/ABD/PEL W 06/21/2019 7:51 PM FINDINGS: Lungs: Stable reticular nodular densities at the lung bases. Liver: Unremarkable. Gallbladder and bile ducts: Prior cholecystectomy. Mild biliary dilation may be postsurgical in etiology. Pancreas: Unremarkable. Spleen: Stable hypodensity in the spleen. Adrenals: Unremarkable. Kidneys and ureters: Stable mild right hydronephrosis. Stomach and bowel: Nondilated, fluid-filled small bowel loops are seen. No definite evidence of obstruction. There is colonic diverticulosis. No evidence of acute diverticulitis. Appendix: No evidence of appendicitis. Intraperitoneal space: Tiny amount of free fluid in the pelvis. No free air. Vasculature: There are coronary artery calcifications. No aortic aneurysm. No aortic dissection. There are atherosclerotic vascular calcifications. Lymph nodes: No pathologically enlarged lymph nodes. Bladder: Unremarkable as visualized. Reproductive: Prior hysterectomy. Bones/joints: There is generalized osteopenia. There are multilevel degenerative changes in the spine. Postsurgical changes of the pubic ramus. No acute fracture. No destructive bone lesion. Soft tissues: Unremarkable. Other findings: There is streak artifact in the pelvis. IMPRESSION: 1. Findings suggestive of ileus or nonspecific enteritis. This is more prominent than on the prior study. 2. Stable mild right hydronephrosis. 3. Coronary artery calcifications. 4. Additional incidental/non-emergent findings, as above. Dictated and Authenticated by: Ki Ruiz MD. Ordering:ERIC Gongora MD
[2019-07-26 19:26] LABS: Anion Gap 4.2 mmol/L (3-11); BUN 11 mg/dL (7-18); CO2 28.8 mmol/L (21.0-32.0); CREATININE 0.85 mg/dL (0.55-1.02); Calcium 8.4 mg/dL (8.5-10.1); Chloride 93 mmol/L (98-107); Glucose 90 mg/dL (74-106); Potassium 4.1 mmol/L (3.5-5.1); Sodium 126 mmol/L (136-145)
--- NOTE | 2019-07-26 19:53 | NUR.NOTE ---
Nursing Note: referal faxed to pcp 07/26/19
== END 2019-07-26 20:15 | disposition home or self-care (01) ==
PROVIDERS: Physician Assistant; Emergency Provider Physician Assistant; PCP Family Medicine
DX: K29.00 Acute gastritis without bleeding (principal); E87.1 Hypo-osmolality and hyponatremia; R10.32 Left lower quadrant pain; I10 Essential (primary) hypertension
CPT/HCPCS: 36415; 80048; 80053; 83690; 93005; 96361; 96374; 99285; 74177; 81003; 83735; 84484; 85025; 93010; J2405; J3490; Q9967

== ENCOUNTER 2019-07-28 03:00 | Outpatient (CLI) | payer MEDICARE, OTHER, SELFPAY ==
[2019-07-28 14:14] LABS: Anion Gap 4.2 mmol/L (3-11); BUN 10 mg/dL (7-18); CO2 29.8 mmol/L (21.0-32.0); CREATININE 0.97 mg/dL (0.55-1.02); Calcium 8.9 mg/dL (8.5-10.1); Chloride 95 mmol/L (98-107); Estimated GFR 54.98 (mL/min/1.73m2); Glucose 135 mg/dL (74-106); Potassium 4.7 mmol/L (3.5-5.1); Sodium 129 mmol/L (136-145)
== END 2019-07-28 03:20 ==
PROVIDERS: PCP Family Medicine; Visit Provider Family Medicine
DX: E87.1 Hypo-osmolality and hyponatremia (principal)
CPT/HCPCS: 36415; 80048

== ENCOUNTER 2019-08-03 03:16 | Outpatient (CLI) | payer MEDICARE, OTHER, SELFPAY ==
[2019-08-03 09:03] LABS: Anion Gap 6.1 mmol/L (3-11); BUN 9 mg/dL (7-18); CO2 29.9 mmol/L (21.0-32.0); CREATININE 1.04 mg/dL (0.55-1.02); Calcium 8.8 mg/dL (8.5-10.1); Chloride 95 mmol/L (98-107); Estimated GFR 50.73 (mL/min/1.73m2); Glucose 134 mg/dL (74-106); Potassium 4.6 mmol/L (3.5-5.1); Sodium 131 mmol/L (136-145)
== END 2019-08-03 03:36 ==
PROVIDERS: PCP Family Medicine; Visit Provider Family Medicine
DX: E87.1 Hypo-osmolality and hyponatremia (principal); K29.60 Other gastritis without bleeding; K22.70 Barrett's esophagus without dysplasia; R19.5 Other fecal abnormalities; I10 Essential (primary) hypertension
CPT/HCPCS: 36415; 80048; 99214

== ENCOUNTER 2019-09-01 20:54 | Outpatient (REF) | payer MEDICARE, OTHER, SELFPAY ==
[2019-09-01 21:46] LABS: ALT 30 U/L (14-59); AST 26 U/L (15-37); Albumin 3.9 g/dL (3.4-5.0); Alkaline Phosphatase 100 U/L (46-116); BUN 13 mg/dL (7-18); Bilirubin, Total 0.5 mg/dL (0.2-1.0); CREATININE 1.08 mg/dL (0.55-1.02); Calcium 8.6 mg/dL (8.5-10.1); Chloride 97 mmol/L (98-107); Estimated GFR 48.57 (mL/min/1.73m2); Glucose 111 mg/dL (74-106); Magnesium 1.7 mg/dL (1.8-2.4); Potassium 3.9 mmol/L (3.5-5.1); Sodium 134 mmol/L (136-145); Total Protein 6.5 g/dL (6.4-8.2)
[2019-09-01 22:05] LABS: HCT 35.9 % (36.0-46.0); HGB 11.9 g/dL (12.0-15.5); Mean Corp. HGB Concentration 33.1 g/dL (32.0-36.0); Mean Corpuscular Hemoglobin 30.1 pg (27.0-33.0); Mean Corpuscular Volume 90.9 fL (80-95); Mean Platelet Volume 12.2 fL (8.0-11.0); Platelet Count 188 x1000/uL (130-400); RBC 3.95 m/cumm (4.00-5.20); RBC Distribution Width 13.2 % (11.7-14.6); White Blood Cell Count 5.77 k/cumm (4.4-10.8)
[2019-09-03 14:19] LABS: Albumin 62.9 % (55.8-66.1); Total Protein 6.5 g/dL (6.3-8.2)
== END 2019-09-01 21:14 ==
LOC: LBN 20:54
PROVIDERS: PCP Family Medicine; Visit Provider Family Medicine
DX: R63.4 Abnormal weight loss (principal); R19.8 Other specified symptoms and signs involving the digestive system and abdomen; K21.9 Gastro-esophageal reflux disease without esophagitis; E83.42 Hypomagnesemia
CPT/HCPCS: 80053; 85027; 83735; 84165; 84443

== ENCOUNTER 2019-11-23 03:35 | Outpatient (CLI) | payer MEDICARE, OTHER, SELFPAY ==
--- NOTE | 2019-11-23 09:35 | DI.MAMMO_ITS ---
EXAM: MG MAMMO DIAGNOSTIC BI CLINICAL HISTORY: Breast pain left,N64.4. COMPARISON: 2009 through 2016 TECHNIQUE: Craniocaudal and mediolateral oblique Full Field Digital Mammography views of the both br easts with Computer Aided Diagnosis followed by Tomosynthesis and left breast ultrasound. FINDINGS: Mammography/Tomosynthesis: Masses/Architectural Distortion: None seen. Microcalcifications: No suspicious pleomorphic-type are seen. Skin Thickening/Nipple Retraction: None. Left breast US: Echotexture: Normal appearance of the glandular tissue. Shadowing: No suspicious foci. Cyst: None. Solid lesions: None seen. Ductal dilation: None. IMPRESSION: 1. No evidence of malignancy is noted. 2. Unless there is more urgent need, follow-up screening mammography is recommended, as per [employer] guidelines. BI-RADS Category 1 - Negative Breast Density - Category B - Scattered areas of fibroglandular density: A negative radiographic report should not delay biopsy if a dominant or clinically suspicious mass is present. Up to ten percent of cancers are not identified on mammography. A negative report may reinforce clinical impression. Adenosis and dense breasts may obscure an underlying neoplasm. False positive reports average 6 to 10%. Patient will receive a letter notifying them of these results.
== END 2019-11-23 03:55 ==
PROVIDERS: PCP Family Medicine; Visit Provider Family Medicine
DX: N64.4 Mastodynia (principal); R92.8 Other abnormal and inconclusive findings on diagnostic imaging of breast
CPT/HCPCS: 76642; 77062; 77066; G0279

== ENCOUNTER 2019-12-27 13:07 | Outpatient (CLI) | payer MEDICARE, OTHER, SELFPAY ==
[2019-12-29 01:17] LABS: Patient Race White; SARS-CoV-2 RNA Undetected (Undetected); SARS-CoV-2 Specimen Source Nasopharynx
== END 2019-12-27 13:27 ==
PROVIDERS: PCP Family Medicine; Visit Provider Emergency Medicine
DX: Z11.59 Encounter for screening for other viral diseases (principal)
CPT/HCPCS: U0003

== ENCOUNTER 2019-12-29 19:22 | Inpatient (IN) | payer MEDICARE, OTHER, SELFPAY ==
[2019-12-29] VITALS (18 sets, daily range): BP systolic 109–179; BP diastolic 41–88; PULSE 117–141; RESP 2–37; TEMP 37–37.3; O2SAT 89–100
--- NOTE | 2019-12-29 19:30 | RT.EKG_ITS ---
APPROVED REPORT Exam: Resting ECG Patient Location: E HR:119 bpm ECG Measurements Heart Rate 119 AXIS IN 145 P 75 QRSd 78 QRS 64 QT 301 T 12 QTc 424 Conclusion Sinus tachycardia No st elevation
--- NOTE | 2019-12-29 19:44 | W.ED.GENAD ---
Discharge Plan Disposition Patient Disposition: [facility] INPATIENT Condition: Poor Discharge Details Chief Complaint: SOB Clinical Impression: Pneumonia Admit Date/Time: 12/29/19 21:50 Admit Provider: Andres Palmer Attending Provider: Andres Palmer Primary Care Provider: Sana Camejo ED Provider: Gilda Odom Medical Decision Making Patient is a pleasant 84-year-old female presents today with chief complaint of shortness of breath. She reports that she is been developing worsening symptoms over the past week. Is endorsing body aches, fever, cough, shortness of breath. She reports that her cough is dry. T-max 101 ?F. Denies any nausea vomiting. Is endorsing some mild upper abdominal pain but that seems to be more pleuritic or muscular driven and is only with cough and deep inspiration. She denies any other abdominal discomfort. No change in bowel or bladder habits. Patient does report that she has chronic lower extremity edema associate with increased salt intake. Patient did have a negative cover testing yesterday. On exam, patient appears acutely ill. She is exhibiting difficulty breathing, has retractions, tachypnea. She has very diminished breath sounds on the right lower side and some scattered wheezing on the left. Patient is tachycardic with a heart rate in the 130s. Abdomen is benign. No CVA tenderness. She does have mild bilateral lower extremity edema which she reports is chronic. Will give a nebulizer and consult respiratory therapy. Bedside chest x-ray will be obtained. Will obtain labs. FINDINGS: Lungs: There is redemonstration of mild chronic interstitial fibrosis. There are superimposed areas of consolidation in the right upper lobe and right lower lobe. At the left lung base, there is a 13 x 9 mm nodular opacity projecting along the left cardiac border, of unknown etiology. This was not clearly visualized on the prior examination of 07/22/2019. Pleural space: There is a small to moderate-sized right pleural effusion. No evidence of pneumothorax. Heart/Mediastinum: The heart is top-normal in size. Bones/joints: Old right rib fractures are redemonstrated. Other findings: There is mild pulmonary hyperexpansion. IMPRESSION: 1. A 13 x 9 mm nodular opacity at the left lung base, inflammatory versus neoplastic. Consider correlation with CT scan of the chest for further characterization if clinically indicated. 2. Pulmonary hyperinflation suggesting COPD associated with mild chronic interstitial fibrosis. 3. Superimposed areas of consolidation in the right upper lobe and right lower lobe may be secondary to pneumonia or alveolar edema. 4. Interval development of a [id number] right pleural effusion. Consider CT scan. Do feel that this would be appropriate plan of action. However, I am concerned that she is not able to tolerate laying flat. At this point, work of breathing and feel that holding off on the CT would be appropriate. I do not believe that this will change the course of care at this time. Labs reviewed, patient has leukocytosis with a white count of 17. Lactate is normal. Sodium is low at 123, this is a chronic issue for the patient. She is receiving IV normal saline. She is not exhibiting any neurologic symptoms and I do not believe that she needs bolus of any hypertonic solutions. Her BNP is elevated at 910. Alk phos is also elevated to 19 which is new for the patient. Patient is moving air better after multiple nebulizers given by respiratory therapy. Patient started on ceftriaxone and azithromycin. Patient reports to me that she has had nausea with azithromycin historically. No true allergic reaction although this is listed in her allergy list. Patient does have significant antibiotic allergies which does make treatment difficult. Consulted with hospitalist regarding admission. He agrees to admission, patient will be going to the ICU for continued monitoring and antibiotics. She is now requiring nasal cannula. Early after starting azithromycin, patient began having some burning to her lips and itching. The azithromycin was immediately stopped. Patient given IV Benadryl. Patient continues to be tachycardic but otherwise hemodynamically stable. She is not had any hypertension since being. Discussed the azithromycin issue with the hospitalist. He advised giving doxycycline instead. We also discussed that this is listed as an allergy for the patient feels that this better be tolerated. HPI General Mode of arrival: wheelchair. Date/Time Provider Initiated Documentation: 12/29/19 19:24. Limitations to Documentation: no limitations. Information obtained by: patient and RN notes reviewed. History of Present Illness 84 year old F presents to the emergency department with the chief complaint of shortness of breath, described as severe, Quality is described as aching, and is localized to the chest (left side with inspiration). Patient reports no radiation. Patient started experiencing this week(s) (1) and it has been constant. Rest improves symptom(s), Movement worsens symptoms and Other factors that worsen symptoms (laying supine) . Patient notes chest pain, cough, diaphoresis, fever/chills and shortness of breath; denies headaches, loss of appetite, nausea/vomiting and syncope. Patient did receive the following treatments prior to arrival, none Related Data Home Medications Medication Instructions Recorded Confirmed metoprolol tartrate 50 mg tablet 50 mg PO BID #180 tab-cap 12/30/18 12/29/19 polyethylene glycol 3350 17 17 gm PO DAILY PRN #238 gm 06/18/19 12/29/19 gram/dose oral powder simvastatin 5 mg tablet 5 mg PO QHS #90 tab-cap 07/08/19 12/29/19 vitamins A,C,Q-dqfq-yzlfod 7,160 1 tab PO BID #30 tab 07/08/19 12/29/19 unit-113 mg-100 unit tablet acetaminophen 500 mg tablet 500 mg PO QID PRN #30 tab 07/14/19 12/29/19 aluminum-mag hydroxide-simethicone 15 ml PO Q6H PRN ml 08/03/19 12/29/19 400 mg-400 mg-40 mg/5 mL oral susp lorazepam 0.5 mg tablet 0.25 mg PO DAILY PRN #25 tab 09/01/19 12/29/19 omeprazole 40 mg capsule,delayed 40 mg PO DAILY #30 cap 11/07/19 12/29/19 release albuterol sulfate 90 mcg/actuation 1 - 2 inh IH Q6H PRN #8.5 gm 12/27/19 12/29/19 aerosol inhaler Previous Rx's Medication Instructions Recorded metoprolol tartrate 50 mg tablet 50 mg PO BID #180 tab-cap 12/30/18 polyethylene glycol 3350 17 17 gm PO DAILY PRN #238 gm 06/18/19 gram/dose oral powder simvastatin 5 mg tablet 5 mg PO QHS #90 tab-cap 07/08/19 vitamins A,C,M-pygm-nvoeiz 7,160 1 tab PO BID #30 tab 07/08/19 unit-113 mg-100 unit tablet acetaminophen 500 mg tablet 500 mg PO QID PRN #30 tab 07/14/19 lorazepam 0.5 mg tablet 0.25 mg PO DAILY PRN #25 tab 09/01/19 omeprazole 40 mg capsule,delayed 40 mg PO DAILY #30 cap 11/07/19 release albuterol sulfate 90 mcg/actuation 1 - 2 inh IH Q6H PRN #8.5 gm 12/27/19 aerosol inhaler Allergies Allergy/AdvReac Type Severity Reaction Status Date / Time ciprofloxacin [From Cipro] Allergy Intermediate Lips and Verified 12/29/19 19:39 face burn, feels shaky, arm tingly codeine AdvReac Intermediate Dizziness/L Verified 12/29/19 19:39 ightheade lovastatin AdvReac Intermediate myalgias Verified 12/29/19 19:39 oxycodone AdvReac Intermediate NAUSEA, GI Verified 12/29/19 19:39 UPSET azithromycin AdvReac cramping, Verified 12/29/19 22:33 anorexia doxycycline AdvReac Nausea, Verified 12/29/19 19:39 Vomiting hydrocodone AdvReac unknown Verified 12/29/19 19:39 General Stated Complaint: SOB MELINDA: 2 Review of Systems Constitutional Constitutional: Reports as per HPI, Reports chills, Reports fatigue, Reports fever(s), Denies headache(s), Reports lethargy and Denies poor appetite Eyes Eyes: Denies change in vision ENT Ears, Nose, Mouth, and Throat: Denies dizziness and Denies headache(s) Cardiovascular Cardiovascular: Reports as per HPI, Reports chest pain (pleuritic left lower CP), Denies radiating jaw, neck or arm pain, Denies palpitations, Reports dyspnea, Reports dyspnea on exertion and Reports orthopnea Respiratory Respiratory: Reports as per HPI, Denies chest congestion, Reports cough, Denies excessive phlegm production, Reports pain on inspiration, Reports pain with cough, Reports dyspnea, Reports dyspnea on exertion and Denies wheezing Gastrointestinal Gastrointestinal: Reports as per HPI, Denies abdominal pain, Denies diarrhea, Denies nausea and Denies vomiting Musculoskeletal Musculoskeletal: Reports as per HPI and Denies back pain Integumentary/Breasts Skin/Breast: Reports as per HPI and Denies rash Neurologic Neurologic: Reports as per HPI, Denies dizziness and Denies headache(s) Endocrine Endocrine: Reports fatigue and Denies palpitations Allergic/Immunologic Allergic/Immunologic: Denies wheezing [facility] Medical History Abnormal [place]; rib fracture; lacerated liver; fx-pelvis; perf. 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 states she is unsure Chest pain Depressive disorder Diverticulitis (09/27/13) 07/28 DNI (do not intubate) DNR (do not resuscitate) Epigastric pain Essential hypertension (01/14/13) Family history of GI malignancy Family history of GI malignancy Gastroesophageal reflux disease with esophagitis : EGD: metaplasia/no dysplasia EGD : reactive/chemical gastropathy/no H.Pylori/Oesophagus:neg. intestinal meta. or dysplasia GERD with esophagitis History of tobacco use Hx of fracture of pelvis pt. 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 Daughter No problems noted. Brother No problems noted. Maternal Grandfather No problems noted. Paternal Grandfather No problems noted. Maternal Grandmother No problems noted. Paternal Grandfather No problems noted. Social History Smoking/Tobacco Use Status: Former Tobacco Use Quit Date: 03/17/97 Second Hand Exposure: Yes Alcohol Intake: never Drug use: Never Substance use type: does not use Caregiver/Support person: No Household members: none Housing: house Communication Needs: Hard of Hearing and Corrective Lenses Pets and animals: Yes Pets and animals: dog(s) Sexually active: No Do you think of yourself as: straight/heterosexual Current gender identity: female What is your relationship status?: How often do you talk on the phone with friends or family?: decline to answer How often do you get together with friends or relatives?: decline to answer How often do you attend christianity or uatsdin services?: decline to answer Do you belong to any clubs or organized social groups?: decline to answer Panel score (0-1 are the most socially isolated patients): 0 What type of physical activity do you participate in: none Frequency: does not exercise Carri/Congregation: Hindu Special carri needs: No Seatbelt use: always Helmet use: No Drive intox 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 driver guard: No Do you feel safe at home: Yes Do you feel safe in your relationship?: Yes Exam Const General: cooperative, not healthy appearing, uncomfortable, well developed, in distress moderate, anxious and ill appearing acutely Nutritional Appearance: well nourished and thin Orientation: alert, awake and oriented x3 HENMT Head: normal to inspection Ears: hearing grossly normal bilaterally Mouth: mucous membranes dry Chest Chest: normal inspection of the chest, normal palpation of entire chest wall and no crepitus Resp Effort & Inspection: normal respiratory effort, able to speak in complete sentences, labored, retractions, tachypneic and uses accessory muscles Auscultation: diminished lung sounds on the right in the lower lung sales, no rales, no rhonchi and wheezes expiratory wheezes and scattered wheezes Cardio Rate: regular rate Rhythm: regular rhythm Heart Sounds: S1 normal and S2 normal GI Inspection: normal to inspection, no edema and non-distended Palpation: soft, no hepatosplenomegaly, not firm, no guarding, not rigid and nontender Auscultation: normal bowel sounds Back/Spine/Pelvis Back: no CVA tenderness Thoracic/Lumbar Spine: thoracic and lumbar spine normal to inspection Skin General skin exam: no rashes or lesions noted Trauma: no lacerations or abrasions Neuro General: patient alert, patient awake and patient oriented x3 Cognition: normal cognition Speech: speech normal Gait: normal gait Extrem General: normal to inspection, capillary refill normal, no calf tenderness and pedal edema bilaterally 1+ Psych Appearance: grossly normal and well kempt Mental Status: mental status grossly normal Speech and Movement: speech and movement normal Course Vital Signs Vital signs: Vital Signs Temperature 37.3 C 12/29/19 19:32 Pulse 132 H 12/29/19 19:32 Respiratory Rate 26 H 12/29/19 19:32 Blood Pressure 145/88 H 12/29/19 19:32 Pulse Oximetry 94 12/29/19 19:32 Temperature 37.3 C 12/29/19 19:32 Temperature Source Oral 12/29/19 19:32 Pulse 132 H 12/29/19 19:32 Respiratory Rate 27 H 12/29/19 19:41 Respiratory Effort 12/29/19 19:41 Respiratory Depth Normal 12/29/19 19:41 Respiratory Pattern Tachypnea 12/29/19 19:41 Blood Pressure 145/88 H 12/29/19 19:32 Blood Pressure Position Sitting 12/29/19 19:32 Pulse Oximetry 94 12/29/19 19:32 Oxygen Delivery Method Room Air 12/29/19 19:32 Oxygen Flow Rate 0 12/29/19 19:32 Pain Level 0 12/29/19 19:32
--- NOTE | 2019-12-29 19:45 | DI.RAD_ITS ---
EXAM: XR PORTABLE CHEST AP CLINICAL HISTORY: SOB TECHNIQUE: 2D digital imaging was performed. COMPARISON: CR XR PORTABLE CHEST AP from 07/22/2019 CR XR PORTABLE CHEST AP from 07/22/2019 FINDINGS: MEDIASTINUM: Normal. HEART: Normal. PULMONARY VASCULATURE: Normal. LUNGS: Underlying chronic interstitial fibrosis. Areas of consolidation are seen in the right upper and right lower lobes. A nodular opacity measuring 1.3 cm is seen in adjacent to the left heart bord er. This was not apparent on the prior examination. There is hyperexpansion of the lungs suggesting underlying COPD. PLEURAL SPACE: There is a moderate size right pleural effusion. No left pleural effusion or pneumoth orax. BONE:Degenerative changes. OTHER FINDINGS:Normal. IMPRESSION: 1. Right upper and right lower lobe infiltrates which may represent pneumonia or edema. 2. New 1.3 cm nodular opacity adjacent to the left heart border. While inflammatory or infectious pr ocess should be considered, neoplasm cannot be excluded. CT scan of the chest should be considered f or further evaluation. 3. Interval development of a moderate right pleural effusion. DATA REPOSITORY: RADIATION DOSE DELIVERED:
[2019-12-29] MEDS: Normal Saline 1,000 ML 1000 ML IV (19:47)
[2019-12-29 20:09] LABS: Abs Immature Grans 0.12 10^3/uL (0.0-0.06); Absolute Lymphocyte Count 0.44 10^3/uL (1.2-3.4); Basophils % 0.2; Eosinophils % 0.9; HCT 34.6 % (36.0-46.0); HGB 11.7 g/dL (11.2-15.7); Immature Grans % 0.7; Lymphocytes % 2.5; MCH 29.4 pg (27.0-33.0); MCHC 33.8 % (32.0-36.0); MCV 86.9 fL (80-95); MPV 10.8 fL (8.0-11.0); Monocytes % 11.4; Neutrophils % 84.3; Nucleated RBC 0 %; Platelet Count 207 10^3/uL (130-400); RBC 3.98 10^6/uL (3.93-5.22); RDW 12.1 % (11.7-14.6); RDW-SD 39.1 fL; WBC 17.58 10^3/uL (4.4-10.8)
[2019-12-29] MEDS: Albuterol/Ipratropium 3 ML UPD VIAL UPD ×2 (20:11→21:00)
[2019-12-29 20:14] LABS: Lactate 1.4 mmol/L (0.6-1.4)
--- NOTE | 2019-12-29 20:34 | NUR.NOTE ---
Nursing Note: Patient reports after nebulizer treatment, decreased pain to breathe and easier to breathe.
[2019-12-29 20:43] LABS: Absolute Basophil Count 0.04 10^3/uL (0.0-0.2); Absolute Eosinophil Count 0.16 10^3/uL (0.0-0.7); Absolute Neutrophil Count 14.82 10^3/uL (1.2-6.7)
[2019-12-29 20:46] LABS: ALT 42 U/L (14-59); AST 32 U/L (15-37); Albumin 2.6 g/dL (3.4-5.0); Alkaline Phosphatase 219 U/L (46-116); Anion Gap 8.4 mmol/L (3-11); BUN 11 mg/dL (7-18); Bilirubin, Total 0.9 mg/dL (0.2-1.0); CO2 27.6 mmol/L (21.0-32.0); CREATININE 0.93 mg/dL (0.55-1.02); Calcium 8.9 mg/dL (8.5-10.1); Chloride 87 mmol/L (98-107); Estimated GFR 57.72 (mL/min/1.73m2); Glucose 155 mg/dL (74-106); Magnesium 1.7 mg/dL (1.8-2.4); NT-proBNP 910 pg/mL (<300); Potassium 4.1 mmol/L (3.5-5.1)
[2019-12-29 20:46] LABS: Diff Comment Agrees w/ Instrument; Ovalocytes 2+
[2019-12-29 20:47] LABS: Anisocytosis 1+
[2019-12-29 20:56] LABS: Troponin I < 0.05 ng/mL (<0.06)
[2019-12-29 20:57] LABS: Sodium 123 mmol/L (136-145)
[2019-12-29 21:09] LABS: Bilirubin Negative (Negative); Blood Small (Negative); Clarity Sl Cloudy (Clear); Glucose Negative (Negative); Ketones Trace mg/dL (Negative); Leukocyte Esterase Small (Negative); Nitrite Positive (Negative); Specific Gravity 1.025 (1.005-1.025)
[2019-12-29 21:13] LABS: Epithelial Cells Rare HPF (Negative)
[2019-12-29] MEDS: cefTRIAXone 1 GM/50 ML BAG IVPB (21:13)
[2019-12-29 21:14] LABS: Bacteria Many HPF (Negative); C & S Indicated? Yes; Casts Negative LPF (Negative); Crystals Negative HPF (Negative); Mucus Negative (Negative)
[2019-12-29] MEDS: Normal Saline 1,000 ML 500 ML IV (21:15)
[2019-12-29] MEDS: Ondansetron 4 MG/2 ML VIAL IVP (21:17)
--- NOTE | 2019-12-29 21:30 | HPE_ITS ---
Date of service: 12/29/19 Time of Service: 21:30 Assessment and Plan Assessment and plan (1) Pneumonia: Status: Acute Assessment and plan: Pneumonia with COPD exacerbation. Unclear whether there may be underlying lesion. Will continue abx, updrafts, add steroids and follow CXR. May need CT for further evaluation. Hyponatremia is noted, has been present to one degree or another since the spring, appears she was placed informally on fluid restriction with improvement. Unclear if this is hypovolemic or euvolemic variety. Will gently give saline and track, may be SIADH, or may relate more specifically to pneumonia, but in any case will track and may need fluid restriction. Reviewed ADs, reiterates DNR status. History of Present Illness History of Present Illness Chief Complaint: SOB, cough Narrative: 84 female with COPD. Here with one week of cough fever and SOB. Also variably endorses chest or flank pain (told ER it was left, then right; tells me right). In ER f indings of note for limited air movement, sinus tachycardia, O2 sats in 90s, white count 17 and CXR showing RLL infiltrate and pleural effusion. Has receive Rocephin, Zithromax and duonebs. Says feeling a little better. Pulse initially 130, dipped to 110s, back to 120-130 since duoneb. Review of Systems All systems reviewed & are unremarkable except as noted in HPI and below PFSH Medical History Abnormal [place]; rib fracture; lacerated liver; fx-pelvis; perf. 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 states she is unsure Chest pain Depressive disorder Diverticulitis (09/27/13) 07/28 DNI (do not intubate) DNR (do not resuscitate) Epigastric pain Essential hypertension (01/14/13) Family history of GI malignancy Family history of GI malignancy Gastroesophageal reflux disease with esophagitis : EGD: metaplasia/no dysplasia EGD : reactive/chemical gastropathy/no H.Pylori/Oesophagus:neg. intestinal meta. or dysplasia GERD with esophagitis History of tobacco use Hx of fracture of pelvis pt. 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 Vaginal wall prolapse (08/19/11) Weight loss observed on examination Surgical History Abdominal hysterectomy Arthroplasty of knee (05/27/12) LEFT - Pt denies knee replacement Bilateral salpingectomy with oophorectomy Bladder Surgery Cholecystectomy Colonoscopy - MAC (~02/2012) Colonoscopy - MAC (04/22/17) EGD - MAC (04/22/17) KNEE SURGERY (~05/2012) Family History Mother , AGE 84 Heart disease Father , AGE 87 Stroke Heart disease Cancer Sister Stroke Brother Alcohol abuse Cancer Brother Cancer of kidney Son Hyperlipidemia Pulmonary disease Daughter Thyroid disease Daughter Cancer s/p hysterectomy Daughter No problems noted. Daughter No problems noted. Brother No problems noted. Maternal Grandfather No problems noted. Paternal Grandfather No problems noted. Maternal Grandmother No problems noted. Paternal Grandfather No problems noted. Social History Smoking/Tobacco Use Status: Former Tobacco Use Quit Date: 03/17/97 Second Hand Exposure: Yes Alcohol Intake: never Drug use: Never Substance use type: does not use Caregiver/Support person: No Household members: none Housing: house Communication Needs: Hard of Hearing and Corrective Lenses Pets and animals: Yes Pets and animals: dog(s) Sexually active: No Do you think of yourself as: straight/heterosexual Current gender identity: female What is your relationship status?: How often do you talk on the phone with friends or family?: decline to answer How often do you get together with friends or relatives?: decline to answer How often do you attend scientologist or quaker services?: decline to answer Do you belong to any clubs or organized social groups?: decline to answer Panel score (0-1 are the most socially isolated patients): 0 What type of physical activity do you participate in: none Frequency: does not exercise Carri/Religious: Scientology Special carri needs: No Seatbelt use: always Helmet use: No Drive intox 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 parts delivery driver: No Do you feel safe at home: Yes Do you feel safe in your relationship?: Yes Meds Home Medications and Allergies Home Medications Medication Instructions Recorded Confirmed Type metoprolol tartrate 50 mg tablet 50 mg PO BID #180 tab-cap 12/30/18 12/29/19 Rx polyethylene glycol 3350 17 17 gm PO DAILY PRN #238 gm 06/18/19 12/29/19 Rx gram/dose oral powder simvastatin 5 mg tablet 5 mg PO QHS #90 tab-cap 07/08/19 12/29/19 Rx vitamins A,C,Y-sxtd-ossdwh 7,160 1 tab PO BID #30 tab 07/08/19 12/29/19 Rx unit-113 mg-100 unit tablet acetaminophen 500 mg tablet 500 mg PO QID PRN #30 tab 07/14/19 12/29/19 Rx aluminum-mag hydroxide-simethicone 15 ml PO Q6H PRN ml 08/03/19 12/29/19 History 400 mg-400 mg-40 mg/5 mL oral susp lorazepam 0.5 mg tablet 0.25 mg PO DAILY PRN #25 tab 09/01/19 12/29/19 Rx omeprazole 40 mg capsule,delayed 40 mg PO DAILY #30 cap 11/07/19 12/29/19 Rx release albuterol sulfate 90 mcg/actuation 1 - 2 inh IH Q6H PRN #8.5 gm 12/27/19 12/29/19 Rx aerosol inhaler Allergies Allergy/AdvReac Type Severity Reaction Status Date / Time ciprofloxacin [From Cipro] Allergy Intermediate Lips and Verified 12/29/19 19:39 face burn, feels shaky, arm tingly codeine AdvReac Intermediate Dizziness/L Verified 12/29/19 19:39 ightheade lovastatin AdvReac Intermediate myalgias Verified 12/29/19 19:39 oxycodone AdvReac Intermediate NAUSEA, GI Verified 12/29/19 19:39 UPSET azithromycin AdvReac cramping, Verified 12/29/19 19:39 anorexia doxycycline AdvReac Nausea, Verified 12/29/19 19:39 Vomiting hydrocodone AdvReac unknown Verified 12/29/19 19:39 Exam Narrative Exam Narrative: 131/50, 117, 37.3 (37.8max), 18, 94$ RA (during visit). HEENT unremarkable; neck supple; lungs limited air movement, diffuse wheeze; heart distant but tachy/regular; no chest wall tenderness; abdomen soft and NT; extremities w/o edema; neuro Ox3, nonfocal Results Labs Result diagrams: 12/29/19 19:45 12/29/19 19:48 Labs: Laboratory Results - last 24 hr 12/29/19 12/29/19 12/29/19 19:45 19:48 19:48 WBC 17.58 H RBC 3.98 Hgb 11.7 Hct 34.6 L MCV 86.9 MCH 29.4 MCHC 33.8 RDW 12.1 Plt Count 207 MPV 10.8 Immature Gran % 0.7 Neutrophils % 84.3 Lymphocytes % 2.5 Monocytes % 11.4 Eosinophils % 0.9 Basophils % 0.2 Nucleated RBC % 0 Absolute Neutrophils 14.82 H Absolute Lymphocytes 0.44 L Absolute Monocytes 2.00 H Absolute Eosinophils 0.16 Absolute Basophils 0.04 RBC Morphology See below Anisocytosis 1+ Ovalocytes 2+ VBG Lactate 1.4 Sodium 123 L* Potassium 4.1 Chloride 87 L Carbon Dioxide 27.6 Anion Gap 8.4 BUN 11 Creatinine 0.93 Estimated GFR/1.73 m2 57.72 Glucose 155 H Calcium 8.9 Magnesium 1.7 L Total Bilirubin 0.9 AST 32 ALT 42 Alkaline Phosphatase 219 H Troponin I < 0.05 NT-Pro-B Natriuret Pep 910 H Total Protein 7.0 Albumin 2.6 L Urine Color Urine Clarity Urine pH Ur Specific [place] Urine Protein Urine Ketones Urine Blood Urine Nitrite Urine Bilirubin Urine Urobilinogen Ur Leukocyte Esterase Urine RBC Urine WBC Ur Epithelial Cells Urine Crystals Urine Bacteria Urine Casts Urine Mucus Ur Culture Indicated? Urine Glucose 12/29/19 20:38 WBC RBC Hgb Hct MCV MCH MCHC RDW Plt Count MPV Immature Gran % Neutrophils % Lymphocytes % Monocytes % Eosinophils % Basophils % Nucleated RBC % Absolute Neutrophils Absolute Lymphocytes Absolute Monocytes Absolute Eosinophils Absolute Basophils RBC Morphology Anisocytosis Ovalocytes VBG Lactate Sodium Potassium Chloride Carbon Dioxide Anion Gap BUN Creatinine Estimated GFR/1.73 m2 Glucose Calcium Magnesium Total Bilirubin AST ALT Alkaline Phosphatase Troponin I NT-Pro-B Natriuret Pep Total Protein Albumin Urine Color Yellow Urine Clarity Sl cloudy Urine pH 6.0 Ur Specific [place] 1.025 Urine Protein 100 H Urine Ketones Trace H Urine Blood Small H Urine Nitrite Positive H Urine Bilirubin Negative Urine Urobilinogen 1.0 H Ur Leukocyte Esterase Small H Urine RBC 3-5 H Urine WBC 3-5 Ur Epithelial Cells Rare Urine Crystals Negative Urine Bacteria Many Urine Casts Negative Urine Mucus Negative Ur Culture Indicated? Yes Urine Glucose Negative Last Vital Signs Temp 37.3 C 12/29/19 19:32 Pulse 117 H 12/29/19 21:00 Resp 18 12/29/19 21:00 BP 131/50 L 12/29/19 21:00 Pulse Ox 100 12/29/19 21:00 COVID-19 Screening Have you,or household,traveled outside [place] in last 14 days?: Yes Had IN PERSON contact w/suspected or confirmed C-19 person: No
[2019-12-29] MEDS: AZITHROMYCIN 500 MG in Normal Saline 250 ML 250 MG IVPB (21:47)
--- NOTE | 2019-12-29 22:01 | NUR.NOTE ---
Nursing Note: Patient reports lips tingling, fast heart rate (140's per monitor), and flushed feeling. Stopped Azithromycin as symptoms began since infusion started. Recheck of temperature was 98.6F with an oral temperature. FADIA Odom notified.
--- NOTE | 2019-12-29 22:10 | NUR.NOTE ---
Nursing Note: Patient placed on 2L of oxygen via nasal cannula for sats dropping to 87%.
[2019-12-29] MEDS: diphenhydrAMINE 50 MG/ML VIAL 25 MG IVP (22:12)
[2019-12-29] MEDS: DOXYCYCLINE 100 MG in Normal Saline 100 ML IVPB (23:38)
[2019-12-30] VITALS (28 sets, daily range): BP systolic 112–146; BP diastolic 47–78; PULSE 77–131; RESP 1–31; TEMP 36–36.3; O2SAT 80–99
--- NOTE | 2019-12-30 | DI.US_ITS ---
EXAM: US RENAL CLINICAL HISTORY: UTI, r/o hydronephrosis/stone. TECHNIQUE: Beck[place] scale, color and spectral Doppler were used. COMPARISON: No exams were available for comparison FINDINGS: Renal size in cm: Right: 9.6. Left: 9.1. Echogenicity: Normal. Hydronephrosis: No. Cyst or mass: No. Nephrolithiasis: No. Other findings: None. Bladder:Normal. Ureteral jets: Right: Not visualized on this examination. Left: Not visualized on this examination. Prevoid vol:28 cc Postvoid vol:0 cc Renal color flow: Symmetric and within normal limits. IMPRESSION: Unremarkable examination. DATA REPOSITORY:
[2019-12-30] MEDS: methylPREDNISolone SUCC 40 MG VIAL IVP ×3 (00:31→17:33)
[2019-12-30] MEDS: Normal Saline 1,000 ML 75 ML IV (00:32)
[2019-12-30] MEDS: Metoprolol 50 MG TAB PO ×3 (01:02→19:53)
[2019-12-30] MEDS: Melatonin 3 MG TAB PO (01:03)
[2019-12-30] MEDS: Albuterol/Ipratropium 3 ML UPD VIAL UPD ×4 (06:43→23:22)
[2019-12-30 07:08] LABS: HCT 31.7 % (36.0-46.0); HGB 10.4 g/dL (11.2-15.7); MCH 29.2 pg (27.0-33.0); MCHC 32.8 % (32.0-36.0); MPV 10.8 fL (8.0-11.0); Platelet Count 193 10^3/uL (130-400); RBC 3.56 10^6/uL (3.93-5.22); RDW 12.3 % (11.7-14.6); RDW-SD 40.5 fL; WBC 13.52 10^3/uL (4.4-10.8)
[2019-12-30 07:19] LABS: Anion Gap 8.4 mmol/L (3-11); BUN 9 mg/dL (7-18); CO2 27.6 mmol/L (21.0-32.0); Calcium 8.4 mg/dL (8.5-10.1); Chloride 94 mmol/L (98-107); Glucose 143 mg/dL (74-106); Potassium 4.5 mmol/L (3.5-5.1); Sodium 130 mmol/L (136-145)
[2019-12-30] MEDS: Omeprazole 20 MG CAPCR 40 MG PO (07:38)
[2019-12-30] MEDS: Normal Saline Flush 10 ML SYR IVP ×3 (07:39→19:54)
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
[2019-12-30 08:28] LABS: Magnesium 1.7 mg/dL (1.8-2.4)
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
--- NOTE | 2019-12-30 11:15 | PAPNONF_PTH ---
PATIENT: Cathy Franklin LOC: U#:[id number] AGE/SX: 84/F ROOM: RE12/29/[address]: Andres Palmer : 1935 BED: A DIS: 01/02/2020 SPEC #: [id number] RECD: 12/30/19 13:09 STATUS: AMADOU REDiann #: [id number] HANS: 12/30/19 11:[address]: Andres Palmer DEPT: [facility] Cytology RECD BY: Katia Wang ENTERED: 12/30/19 13:10 SP TYPE: BRAD COBIAN DR: MD Helga Lane Laura M InPatient Dan Wyand Tissues: 1 - BODY FLUID CYTO(NOT S/U/N/EM)[facility] Procedures: BODY FLUID CYTO(NOT SPU/UR/NIP/ENDOM)[facility] Comments: [id number] (TOTAL VOLUME = 60 ml's, SENT FRESH)
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
--- NOTE | 2019-12-30 11:34 | DI.CT_ITS ---
EXAM: CT CHEST WO CLINICAL HISTORY: PNA vs CHF, ? lung malignancy. TECHNIQUE: Imaging protocol: Axial computed tomography images were obtained and coronal and sagittal reformatted images were created and reviewed. COMPARISON: CR,XR XR PORTABLE CHEST AP from 12/29/2019 FINDINGS: Tracheobronchial tree: Patent where visualized. Mediastinum and Soni: Limited visualization of the mediastinum is noted secondary to lack of IV contr ast. There are mildly enlarged lymph nodes seen in the mediastinum. The largest measures 1 x 1.3 cm . Pulmonary parenchyma: Noncalcified pulmonary nodules are seen. These are primarily identified in the left lingula and the right upper lobe. The largest measures 0.5 cm. There is an infiltrate seen ad jacent to the left heart border in the lingula likely accounting chest x-ray finding. This may repre sent pneumonia or atelectasis. There are areas of consolidation in the left lingula and the right up per, middle and lower lobes. Pleura: There is a small left and a moderate right pleural effusion. Heart: Cardiomegaly. Moderate coronary artery calcification. No significant pericardial effusion. Aorta: Thoracic aorta non-dilated. Atherosclerosis. Upper abdomen: Unremarkable. Lymph nodes: Please see above. Bones:Within normal limits. Soft tissues: Unremarkable. IMPRESSION: 1. Limited examination due to lack of IV contrast. 2. Multiple noncalcified pulmonary nodules are identified. Metastatic disease should be considered. An infectious or inflammatory process cannot be entirely excluded. 3. Multifocal areas of consolidation. Findings are suspicious for pneumonia. Please correlate clini buster. 4. Bilateral pleural effusions. 5. Cardiomegaly. Coronary artery calcifications and atherosclerosis. 6. Mildly enlarged lymph nodes in the mediastinum which may be reactive. RADIATION DOSE DELIVERED: 357.99mGy.cm Total DLP 357.99mGy.cm Total DLP DATA REPOSITORY: All CT scans at this facility are submitted to the National Radiology Data Registry (NRDR) Dose Index Registry (DIR) with the [employer] (ACR). RADIATION OPTIMIZATION: All CT scans at this facility use at least one of these dose optimization te chniques: automated exposure control; mA and/or kV adjustment per patient size (includes targeted exa ms where dose is matched to clinical indication); or iterative reconstruction.
--- NOTE | 2019-12-30 11:47 | NS.NUTBLAN_ITS ---
Date of service: 12/30/19 Time of Service: 11:47 Nutritional Consult ASSESSMENT: 84 year old female admitted with pleural effusion, PNA with a hx of 33 lbs weight loss in last 12 months. PMH: COPD, Lai's esophagus, erosive gastritis. Current BMI wnl, however much lower than typical weight. Unable to meet with pt today (in OR) for history and causation of weight loss. Will meet with pt when available to discuss. At high nutritional risk in view of significant weight loss in past year. Estimated Needs: [id number] kcal, 53-63 g protein, 1600 ml fluid. NUTRITIONAL DIAGNOSIS: severe malnutrition in context of chronic illness as e videnced by 28% weight loss in last 12 months INTERVENTION: advance diet as tolerated per MD orders will supplement with ensure if po intake insufficient MONITORING AND EVALUATION: will monitor po intake, labs and weight Time Spent in Nutritional Counseling and Treatment: 0 time spent
[2019-12-30 12:14] LABS: Source: Pleural
--- NOTE | 2019-12-30 12:31 | PHA.REVIEW ---
Pharmacy Admission Review - Admission Clinical Review (Last Updated 12/30/19 @ 10:51 by Sandra Partida DO) Pleural effusion, right (Acute) Pneumonia (Acute) ciprofloxacin [From Cipro] Allergy (Intermediate, Verified 12/29/19 19:39) Lips and face burn, feels shaky, arm tingly codeine Adverse Reaction (Intermediate, Verified 12/29/19 19:39) Dizziness/Lightheade lovastatin Adverse Reaction (Intermediate, Verified 12/29/19 19:39) myalgias oxycodone Adverse Reaction (Intermediate, Verified 12/29/19 19:39) NAUSEA, GI UPSET azithromycin Adverse Reaction (Verified 12/29/19 22:33) cramping, anorexia doxycycline Adverse Reaction (Verified 12/29/19 19:39) Nausea, Vomiting hydrocodone Adverse Reaction (Verified 12/29/19 19:39) unknown Height 5 ft 1 in Weight 53.8 kg - Renal Dosing Renal Dosing: BUN 9 mg/dL (7-18) 12/30/19 06:33 Creatinine 0.70 mg/dL (0.55-1.02) 12/30/19 06:33 Medications needing adjustments: Reviewed - Anticoagulation Anticoagulation: Hgb 10.4 g/dL (11.2-15.7) L 12/30/19 06:33 Hct 31.7 % (36.0-46.0) L 12/30/19 06:33 Plt Count 193 10^3/uL (130-400) 12/30/19 06:33 Creatinine 0.70 mg/dL (0.55-1.02) 12/30/19 06:33 DVT Prohphylaxis: N/A (thorocentesis planned for today) Therapeutic Anticoagulation: N/A - Opiate Usage Evaluate Pain Scale/Pains Meds: N/A - Relevant Labs Sodium 130 mmol/L (136-145) L 12/30/19 06:33 Potassium 4.5 mmol/L (3.5-5.1) 12/30/19 06:33 Chloride 94 mmol/L (98-107) L 12/30/19 06:33 Magnesium 1.7 mg/dL (1.8-2.4) L 12/30/19 06:33 Electrolytes, C-Reactive P, ESR: Reviewed - DM Control DM Control: Glucose 143 mg/dL (74-106) H 12/30/19 06:33 Insulin Dosing: N/A - Heart Failure/WA Heart Failure/WA: Troponin I < 0.05 ng/mL (<0.06) 12/29/19 19:48 NT-Pro-B Natriuret Pep 910 pg/mL (<300) H 12/29/19 19:48 - BP Control BP Control: Blood Pressure 119/78 Blood Pressure 133/54 Blood Pressure 133/54 Blood Pressure 121/59 Blood Pressure 133/60 Blood Pressure 133/52 Blood Pressure 132/59 Blood Pressure 130/57 Blood Pressure 146/61 Blood Pressure 112/52 Blood Pressure 112/52 Blood Pressure 120/63 If elevated: Reviewed - Qtc Review List meds needing interventions: QTc 424 on admission - IV to PO Switch IV Medications: Reviewed - Home Meds Home Med List reviewed: Reviewed Relevent Home Meds Not ordered & why?: All ordered. - Current meds Current Medication Order Review: Reviewed - Comments Comments/Follow Ups: Azithromycin started then discontinued in ED due to adverse reaction, doxycycline ordered instead but pt also reports adverse reaction to this-- only ceftriaxone was continued
[2019-12-30 12:34] LABS: COVID-19 RT-PCR UVMMC Result Negative (Negative)
[2019-12-30 12:48] LABS: Clarity Cloudy; Nucleated Cells 14875 uL (0); Source Pleural
[2019-12-30 12:49] LABS: Mononuclear Cells 19 %; Polynuclear Cells 81 %
[2019-12-30 13:09] LABS: LDH 173 U/L (81-234); Total Protein 5.4 g/dL (6.4-8.2)
[2019-12-30] MEDS: MAGNESIUM SULFATE 2 GM/50 ML BAG IVPB (14:27)
[2019-12-30] MEDS: Refresh PLUS Eye Drops 0.4ml 1 EACH OU (14:27)
--- NOTE | 2019-12-30 16:04 | DI.VRAD_ITS ---
PROCEDURE INFORMATION: Exam: XR Chest, 1 View Exam date and time: 12/29/2019 8:06 PM Age: 84 years old Clinical indication: Shortness of breath TECHNIQUE: Imaging protocol: XR of the chest Views: 1 view. COMPARISON: CR XR PORTABLE CHEST AP 07/22/2019 11:36 AM FINDINGS: Lungs: There is redemonstration of mild chronic interstitial fibrosis. There are superimposed areas of consolidation in the right upper lobe and right lower lobe. At the left lung base, there is a 13 x 9 mm nodular opacity projecting along the left cardiac border, of unknown etiology. This was not clearly visualized on the prior examination of 07/22/2019. Pleural space: There is a small to moderate-sized right pleural effusion. No evidence of pneumothorax. Heart/Mediastinum: The heart is top-normal in size. Bones/joints: Old right rib fractures are redemonstrated. Other findings: There is mild pulmonary hyperexpansion. IMPRESSION: 1. A 13 x 9 mm nodular opacity at the left lung base, inflammatory versus neoplastic. Consider correlation with CT scan of the chest for further characterization if clinically indicated. 2. Pulmonary hyperinflation suggesting COPD associated with mild chronic interstitial fibrosis. 3. Superimposed areas of consolidation in the right upper lobe and right lower lobe may be secondary to pneumonia or alveolar edema. 4. Interval development of a [id number] right pleural effusion. Dictated and Authenticated by: Gustavo Longoria MD. Ordering:LUIS ANTONIO Vo MD
[2019-12-30 16:52] LABS: Glucose, Fluid 169 mg/dL (See Note)
[2019-12-30] MEDS: Heparin 5,000 UNITS/ML VIAL 5000 UNITS SC (17:34)
[2019-12-30] MEDS: cefTRIAXone 1 GM/50 ML BAG IVPB (19:53)
[2019-12-30] MEDS: Simvastatin 10 MG TAB 5 MG PO (19:53)
[2019-12-31] VITALS (8 sets, daily range): BP systolic 120–131; BP diastolic 55–69; PULSE 78–100; RESP 1–18; TEMP 35.8–37; O2SAT 90–100
--- NOTE | 2019-12-31 | DI.RAD_ITS ---
EXAM: XR PORTABLE CHEST AP CLINICAL HISTORY: follow up PNA, pleural effusion TECHNIQUE: 2D digital imaging was performed. COMPARISON: CR,XR XR PORTABLE CHEST AP from 12/29/2019 FINDINGS: There has been no significant change in appearance of the chest x-ray compared to the prior examinati on. Multifocal opacities are still seen in the lungs. There is a stable small right pleural effusio n. IMPRESSION: Stable appearance of the chest since 12/29/2019. DATA REPOSITORY: RADIATION DOSE DELIVERED:
[2019-12-31] MEDS: Normal Saline Flush 10 ML SYR IVP ×2 (01:31→10:07)
[2019-12-31] MEDS: methylPREDNISolone SUCC 40 MG VIAL IVP ×2 (01:31→10:07)
[2019-12-31] MEDS: Heparin 5,000 UNITS/ML VIAL 5000 UNITS SC ×2 (06:29→17:43)
[2019-12-31] MEDS: Omeprazole 20 MG CAPCR 40 MG PO (06:30)
[2019-12-31] MEDS: Albuterol/Ipratropium 3 ML UPD VIAL UPD ×3 (06:30→19:39)
[2019-12-31 07:12] LABS: Abs Immature Grans 0.13 10^3/uL (0.0-0.06); Absolute Basophil Count 0.03 10^3/uL (0.0-0.2); Absolute Eosinophil Count 0.05 10^3/uL (0.0-0.7); Absolute Lymphocyte Count 0.35 10^3/uL (1.2-3.4); Absolute Neutrophil Count 16.26 10^3/uL (1.2-6.7); Basophils % 0.2; Eosinophils % 0.3; HCT 31.2 % (36.0-46.0); HGB 10.2 g/dL (11.2-15.7); Immature Grans % 0.7; MCH 29.5 pg (27.0-33.0); MCHC 32.7 % (32.0-36.0); MCV 90.2 fL (80-95); Monocytes % 3.7; Neutrophils % 93.1; Nucleated RBC 0 %; Platelet Count 234 10^3/uL (130-400); RBC 3.46 10^6/uL (3.93-5.22); RDW 12.4 % (11.7-14.6); WBC 17.46 10^3/uL (4.4-10.8)
[2019-12-31 07:19] LABS: Absolute Monocyte Count 0.65 10^3/uL (0.1-0.8)
[2019-12-31 07:25] LABS: Anion Gap 9.2 mmol/L (3-11); BUN 19 mg/dL (7-18); CO2 25.8 mmol/L (21.0-32.0); CREATININE 1.04 mg/dL (0.55-1.02); Chloride 96 mmol/L (98-107); Estimated GFR 50.73 (mL/min/1.73m2); Glucose 144 mg/dL (74-106); Magnesium 2.3 mg/dL (1.8-2.4); Sodium 131 mmol/L (136-145)
[2019-12-31] MEDS: Metoprolol 50 MG TAB PO ×2 (07:49→19:33)
--- NOTE | 2019-12-31 08:58 | PDOC.CMPRO ---
Care Management Progress Note S/O: Cathy was walking with PT when CM observed her. She remains pleasant in interaction and aware of her discharge plan. Per MD, Cathy will likely discharge tomorrow. CM continues to follow. A: 84 year old female admitted to [facility] 12/29/19 for Pneumonia, COPD P: Per MD, Cathy will likely discharge home tomorrow. Physical therapy is recommending home PT upon discharge; CM will support coordination of orders. Cathy will transport via private vehicle with family, she will follow up with her PCP and plan of care as prescribed.
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
--- NOTE | 2019-12-31 13:55 | CHAPLAIN ---
Cathy was reading her book when I visited and asked for a warm blanket for her legs. She has been moved out to Med/Surg from ICU and she said she feels better. She is reserved in speaking with me, but this seems to be her nature.
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
[2019-12-31 14:49] LABS: Lactate Dehydrogenase (LD), BF 339 U/L
[2019-12-31] MEDS: Polyethylene Glycol 3350 17 GM PACKET PO (14:51)
[2019-12-31] MEDS: Docusate Sodium 100 MG CAP PO ×2 (14:51→19:33)
--- NOTE | 2019-12-31 15:00 | PT.INTREAT ---
Date of service: 12/31/19 Time of Service: 15:00 PT Notes Visit Reasons: PNEUMONIA, COPD Inpatient Physical Therapy Treatment Note [facility] Date: 12/31/2019 PRECAUTIONS: Fall SUBJECTIVE: Cathy is pleasant and agreeable to participating in PT. She reports that she occasionally feels off balance at home, but she does not fall. She reports that she takes a break then continues walking, climbing stairs, or whatever activity she is performing. OBJECTIVE: PAIN: No complaints of pain BED MOBILITY/TRANSFERS Sit-stand: I Stand-sit: I Bed-Chair: S Chair-bed: S GAIT Assistive Device: No AD Weight bearing: Full Assist: S Distance: 400' Deviation: Standing rest x1 to catch my breath and get ready THEREX/BALANCE RETRAINING: Patient is instructed in a static and dynamic balance retraining program. She performed activities such as cone pickup from various heights,: Step over, and cone tap and step, as well as various static standing activities including tandem stance and single leg stance, all while standing on Airex pad. Patient requires CGA-S with dynamic balance activities and CGA-SBA for static balance activities for safety. STAIRS: Up/down 3?4 and 2?6 without UE support utilizing step over pattern with supervision ASSESSMENT: Patient tolerated session well, demonstrating continued need for balance retraining. She tolerates transfers and gait training well, without assistive device, at this time. Patient would benefit from continued balance retraining for improved safety with activities of daily living. PLAN: Continue with balance retraining. TREATMENT CODE/TIME: 30 minutes; 13412 ?2
--- NOTE | 2019-12-31 15:06 | TELEFU_ITS ---
Date of service: 12/31/19 Time of Service: 15:07 Nutritional Follow up NOTE: Met with Cathy today. She reports weight loss of 33 lbs in last year due to change in diet. She reports that her MD recommended a low fiber diet . 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 Recommended that she supplement her diet with ensure- but she said she would not drink ensure as it causes her heart burn. Offered other high calorie snacks, she declined. Following regular meal plan with excellent intake since admit (>75%). Met with medical care evaluation specialist that report that she has good family support in area and declines meals on wheels as has family helping her with meals. Does not appear at nutritional risk at this time. Will continue to follow. Time Spent in Nutritional Counseling and Treatment: 10 min spent face to face
[2019-12-31] MEDS: Refresh PLUS Eye Drops 0.4ml 1 EACH OU (16:07)
[2019-12-31] MEDS: cefTRIAXone 1 GM/50 ML BAG IVPB (19:32)
[2019-12-31] MEDS: Simvastatin 10 MG TAB 5 MG PO (19:33)
[2020-01-01] VITALS (9 sets, daily range): BP systolic 129–153; BP diastolic 55–78; PULSE 75–84; RESP 2–20; TEMP 36.4–37; O2SAT 95–97
[2020-01-01] MEDS: Heparin 5,000 UNITS/ML VIAL 5000 UNITS SC ×2 (05:33→18:28)
[2020-01-01] MEDS: Albuterol/Ipratropium 3 ML UPD VIAL UPD ×4 (05:33→23:41)
[2020-01-01 07:27] LABS: Abs Immature Grans 0.19 10^3/uL (0.0-0.06); Basophils % 0.2; HCT 32.5 % (36.0-46.0); HGB 10.6 g/dL (11.2-15.7); MCHC 32.6 % (32.0-36.0); MCV 88.8 fL (80-95); MPV 10.3 fL (8.0-11.0); Monocytes % 6.3; Neutrophils % 87.5; Nucleated RBC 0 %; Platelet Count 251 10^3/uL (130-400); RBC 3.66 10^6/uL (3.93-5.22); RDW 12.6 % (11.7-14.6); RDW-SD 41.2 fL; WBC 19.04 10^3/uL (4.4-10.8)
[2020-01-01 07:32] LABS: Absolute Basophil Count 0.04 10^3/uL (0.0-0.2); Absolute Lymphocyte Count 0.95 10^3/uL (1.2-3.4); Absolute Neutrophil Count 16.66 10^3/uL (1.2-6.7)
[2020-01-01 07:37] LABS: Anion Gap 6.1 mmol/L (3-11); BUN 21 mg/dL (7-18); CO2 29.9 mmol/L (21.0-32.0); CREATININE 0.86 mg/dL (0.55-1.02); Calcium 8.8 mg/dL (8.5-10.1); Chloride 97 mmol/L (98-107); Glucose 103 mg/dL (74-106); Magnesium 2.1 mg/dL (1.8-2.4); Potassium 4.4 mmol/L (3.5-5.1); Sodium 133 mmol/L (136-145)
[2020-01-01] MEDS: predniSONE 20 MG TAB 60 MG PO (07:53)
[2020-01-01] MEDS: Docusate Sodium 100 MG CAP PO ×2 (07:53→19:32)
[2020-01-01] MEDS: Omeprazole 20 MG CAPCR 40 MG PO (07:53)
[2020-01-01] MEDS: Polyethylene Glycol 3350 17 GM PACKET PO (07:53)
[2020-01-01] MEDS: Metoprolol 50 MG TAB PO ×2 (07:54→19:32)
[2020-01-01] MEDS: Normal Saline Flush 10 ML SYR IVP ×2 (07:54→19:31)
--- NOTE | 2020-01-01 09:44 | PT.INTREAT ---
PT Notes Visit Reasons: PNEUMONIA, COPD 01/01/2020 SUBJECTIVE: Cathy stating she does not feel as great as yesterday but not too bad. She notes she is breathing a little heavier. OBJECTIVE: [id number] Seated in recliner. Agreeable to PT treatment. TRANSFERS Sit to stand: I Stand to sit: I GAIT Device: No AD Weight bearing: Full Assist: S Distance: 400' THEREX: Pt instructed in a balance re-training program as noted on flow sheet for dynamic and static balance activities. Pt performs small RAMANA activities on uneven surfaces with minimal therapist assist required throughout and very little sway noted. See flow sheet for specifics. ASSESSMENT: No complaints of SOB throughout treatment today. Able to carry on conversation throughout. Tolerates her balance program well with minimal assist required. PLAN: COntinue per POC. Treatment time: 25 minutes Jeanne Sadler PTA Clinic location: [facility] [place], [place]
--- NOTE | 2020-01-01 10:19 | CMPROGNOTE_ITS ---
Care Management Progress Note S/O: Cathy remains pleasant in interaction and aware of her discharge plan. She reviewed her current living situation and reported she was not currently interested in working with [facility] or having MOW. She was agreeable to [facility] referral and home PT. She reported struggling to navigate supports in the community. ALESSANDRA reviewed CART items as MD reports Cathy will likely remain at [facility] through the weekend; Cathy requested Crosswords and a notebook to take notes for discharge as well as extra briefs; CM provided all to Cathy who was thankful. CM continues to follow. A: 84 year old female admitted to [facility] 12/29/19 for Pneumonia, COPD P: Per MD, Cathy requires further monitoring and will likely remain at [facility] through the weekend. Physical therapy is recommending home PT upon discharge; CM will support coordination of orders upon discharge and notified CHIOMA Jaramillo. Cathy will transport via private vehicle with family, she will follow up with her PCP and plan of care as prescribed.
[2020-01-01 10:34] LABS: Procalcitonin 0.2 ng/mL
[2020-01-01 11:28] LABS: Amylase, BF 21 U/L; Protein,Total, BF 3.6 g/dL
[2020-01-01] MEDS: Refresh PLUS Eye Drops 0.4ml 1 EACH OU ×2 (12:46→19:32)
--- NOTE | 2020-01-01 15:59 | PGE_ITS ---
Date of Service Date of service: 01/01/20 Time of Service: 16:00 Assessment and Plan Assessment and plan (1) Pneumonia: Status: Acute Assessment and plan: Continues to improve on Rocephin alone. We will switch her over to to an oral cephalosporin such as Ceftin to complete a 10-day course of antibiotics and obtain a follow-up chest x-ray in 2 weeks. Qualifiers: Pneumonia type: due to unspecified organism Laterality: bilateral Lung location: unspecified part of lung Qualified Code(s): J18.9 - Pneumonia, unspecified organism (2) Pleural effusion, right: Status: Acute Assessment and plan: S/p thoracenthesis 12/29;2019. Fluid did not look purulent. Parapneumonic effusion versus malignant effusion. Cultures no growth so far and Gram stain showed white cells but no bacteria. Awaiting cytology. Check a follow-up chest x-ray prior to discharge. (3) UTI (urinary tract infection): Status: Acute Assessment and plan: Present on admission. Urine culture is positive for E. Coli, and speciation is pending. On ceftriaxone day 4 - continue. Negative renal US. Qualifiers: Urinary tract infection type: acute cystitis Hematuria presence: with hematuria Qualified Code(s): N30.01 - Acute cystitis with hematuria (4) Pulmonary nodules: Status: Acute Assessment and plan: Inflammatory versus malignancy. Will need to follow- up PET/CT in 4 to 6 weeks. We will get interim chest x-ray upon completion of antibiotics. (5) DVT prophylaxis: Status: Acute Assessment and plan: SC heparin, TEDs, SCDS. (6) Discharge planning issues: Status: Acute Assessment and plan: DNR/DNI Anticipate discharge home tomorrow Subjective Subjective Interval history since last seen: Patient denies shortness of breath at rest or with light activity around her room. She is no longer requiring oxygen. She does not quite feel her normal self but feels 100% better than when she first came into the hospital. She remains afebrile and is currently receiving Rocephin for both community-acquired pneumonia as well as a UTI. Sputum Gram stain suggest oropharyngeal contamination. Pleural fluid from her thoracentesis demonstrated many white cells but no bacteria. And so far has shown no growth after 2 days. Urine culture demonstrates E. coli that is pansensitive. Blood cultures from December 29, 2019 showed no growth. Her oxygen saturation has been 95 to 100% on room air. Repeat chest x-ray from yesterday showed small right pleural effusion along with multiple lung opacities. Patient CT had shown consolidation and left lingula, right upper middle and lower lobes along with enlarged mediastinal lymphadenopathy and multiple noncalcified pulmonary nodules. I explained to the patient that this could represent a carcinoma or lymphoma and should be followed up as an outpatient with a repeat PET CT scan once she is complete antibiotic treatment for her pneumonia. I will keep her here for IV antibiotics today but plan on discharging her home in the morning on oral antibiotics. She should complete 10-day course of antibiotics. She is already had 3 days of antibiotics therefore I will discharge her home on 1 more week of oral antibiotics and arrange for follow-up chest x-ray in 2 weeks. PET/CT should be considered to evaluate mediastinal adenopathy and lung nodules. Exam Narrative Exam Narrative: Elderly female alert and oriented person place time circumstance. Heart regular rate and rhythm. Lungs are clear to auscultation anteriorly posteriorly she had some fine rales over both bases Abdomen soft and nontender nondistended normal bowel sounds Extremities without peripheral edema or cyanosis Objective Last Vital Signs Temp 36.4 C L 01/01/20 15:44 Pulse 80 01/01/20 15:44 Resp 18 01/01/20 15:44 BP 133/64 01/01/20 15:44 Pulse Ox 97 01/01/20 15:44 Laboratory Results - last 24 hr 12/30/19 12/30/19 12/30/19 11:15 11:15 11:15 WBC RBC Hgb Hct MCV MCH MCHC RDW Plt Count MPV Immature Gran % Neutrophils % Lymphocytes % Monocytes % Eosinophils % Basophils % Nucleated RBC % Absolute Neutrophils Absolute Lymphocytes Absolute Monocytes Absolute Eosinophils Absolute Basophils Sodium Potassium Chloride Carbon Dioxide Anion Gap BUN Creatinine Estimated GFR/1.73 m2 Glucose Calcium Magnesium Procalcitonin Fluid Type Rt side pleural fld Rt side pleural fld Rt side pleural fld Fluid Total Protein 3.6 Fluid LDH 339 Fluid Amylase 21 01/01/20 01/01/20 01/01/20 07:05 07:05 07:05 WBC 19.04 H RBC 3.66 L Hgb 10.6 L Hct 32.5 L MCV 88.8 MCH 29.0 MCHC 32.6 RDW 12.6 Plt Count 251 MPV 10.3 Immature Gran % 1.0 Neutrophils % 87.5 Lymphocytes % 5.0 Monocytes % 6.3 Eosinophils % 0.0 Basophils % 0.2 Nucleated RBC % 0 Absolute Neutrophils 16.66 H Absolute Lymphocytes 0.95 L Absolute Monocytes 1.20 H Absolute Eosinophils 0.00 Absolute Basophils 0.04 Sodium 133 L Potassium 4.4 Chloride 97 L Carbon Dioxide 29.9 Anion Gap 6.1 BUN 21 H Creatinine 0.86 Estimated GFR/1.73 m2 >= 60.00 Glucose 103 Calcium 8.8 Magnesium 2.1 Procalcitonin 0.2 Fluid Type Fluid Total Protein Fluid LDH Fluid Amylase
[2020-01-01] MEDS: cefTRIAXone 1 GM/50 ML BAG IVPB (19:30)
[2020-01-01] MEDS: Simvastatin 10 MG TAB 5 MG PO (19:32)
[2020-01-02 05:36] VITALS: RESP 1; RESP 8
[2020-01-02] MEDS: Heparin 5,000 UNITS/ML VIAL 5000 UNITS SC (05:36)
[2020-01-02] MEDS: Albuterol/Ipratropium 3 ML UPD VIAL UPD (05:36)
[2020-01-02 07:37] VITALS: BP 126/68; PULSE 72; RESP 13; TEMP 36.6; O2SAT 92
[2020-01-02 08:13] LABS: HCT 32.8 % (36.0-46.0); HGB 10.8 g/dL (11.2-15.7); MCH 29.2 pg (27.0-33.0); MCHC 32.9 % (32.0-36.0); MCV 88.6 fL (80-95); MPV 10.1 fL (8.0-11.0); Platelet Count 244 10^3/uL (130-400); RDW 12.7 % (11.7-14.6); RDW-SD 41.4 fL; WBC 12.52 10^3/uL (4.4-10.8)
--- NOTE | 2020-01-02 08:33 | DSE_ITS ---
Date of service: 01/02/20 Time of Service: 08:33 DS: Diagnosis Discharge Diagnosis (1) Pneumonia: Start date: 01/02/20 Start time: 08:33 Status: Resolved Asessment and Plan: Improving on rocephin, will discharge home on 10 days ceftin for total dose 14 days. She will need follow up CXR in 2 weeks. Leukocytosis improving. Will recheck in 3 days. as steroids are weaned down. Overall feeling better, afebrile. Blood cultures with no growth (2) Pleural effusion, right: Start date: 01/02/20 Start time: 08:37 Status: Resolved Asessment and Plan: s/p thoracentsis 12/29. Parapneumonic effusion vs malignant effusion. Cx no growth and gram stain with white cells but no bacteria Awaiting cytology CXR 12/30 with stable appearance. Follow up CXR in 2 weeks (3) UTI (urinary tract infection): Start date: 01/02/20 Start time: 08:40 Status: Resolved Asessment and Plan: Present on admission Treated with ceftriaxone, urine cx with E. coli greater than 100,000 colonies pansensitive. (4) Pulmonary nodules: Start date: 01/02/20 Start time: 08:41 Status: Acute Asessment and Plan: Inflammatory vs malignancy. Will need to follow up with PET/CT in 4-6 weeks. Will get interim CXR upon completion of antibiotics. Above case discussed with Dr. Jiménez who is in agreement. Discharge Plan Disposition Patient Disposition: HOME W/HOME HEALTH SERVICE Condition: Improving Discharge Details Reason For Visit: PNEUMONIA, COPD Admit Date/Time: 12/29/19 21:50 Admit Provider: Andres Palmer Attending Provider: Andres Palmer Primary Care Provider: [facility] Hospital Course: 84 y.o female admitted to [facility] from ED for increasing SOB over 1 week prior. Ms. Franklin has a history of COPD, Smoking ( quit in the ) and GERD. In the ED imaging revealed pulmonary nodules inflammatory vs neoplastic. Labs with elevated WBC, hyponatremia and UTI. She was initiated on azithromycin in the ED but developed a reaction. She was given benadryl which helped, then placed on ceftriaxone and admitted to m/s for further management. Over course of treatment she was placed on steriods with rocephin. Thoracentesis on 12/29 with evacuation of 266 cc of clear straw colored fluid. Cytology still pending. Symptoms improved with rocephin and steroids. Leukocytosis improving. Cultures no growth to Date and gram stain with white cells but no bacteria. She is being discharged home. She will finish a course of ceftin and will need follow up CXR in 2 weeks. I will also repeat a cbc in a couple of days. She will need a follow up PET/CT scan in 4-6 weeks to r/o malignancy. She will be discharged home with PT. She denies CP, SOB, N/V/D. She has been afebrile and feels well enough to go home. Home Meds and New Rx's Prescriptions: New cefuroxime axetil 500 mg tablet 500 mg PO BID Qty: 20 RF: 0 prednisone 10 mg tablet 10 mg PO DAILY Qty: 17 RF: 0 Continued polyethylene glycol 3350 [Miralax] 17 gram/dose powder 17 gm PO DAILY PRN (Reason: constipation) Qty: 238 RF: 2 Hold Instructions: Home Medication placed on hold at Doctor's office simvastatin 5 mg tablet 5 mg PO QHS Qty: 90 RF: 3 acetaminophen [Tylenol Extra Strength] 500 mg tablet 500 mg PO QID PRN (Reason: pain) Qty: 30 RF: 0 lorazepam 0.5 mg tablet 0.25 mg PO DAILY PRN (Reason: anxiety) Qty: 25 RF: 0 alum-mag hydroxide-simeth [Mylanta Maximum Strength] 400-400-40 mg/5 mL suspension 15 ml PO Q6H PRN (Reason: indigestion) RF: 0 omeprazole 40 mg capsule,delayed release(DR/EC) 40 mg PO DAILY Qty: 30 RF: 2 albuterol sulfate 90 mcg/actuation HFA aerosol inhaler 1 - 2 inh IH Q6H PRN (Reason: shortness of breath or wheezing) Qty: 8.5 RF: 6 metoprolol tartrate 50 mg tablet 50 mg PO BID Qty: 180 RF: 4 No Action PreserVision AREDS 7,160-113-100 cfwl-tn-[id number] tablet 1 tab PO BID Qty: 30 RF: 0 Discharge Instructions Instructions: Community Acquired Pneumonia (DC), Pulmonary Nodules (DC), Urinary Tract Infection in Older Adults (DC) Additional Instructions: Follow up with your PCP in 1-2 weeks Repeat chest x ray in 2 week Recheck labs in 3 days Finish all medications and take as prescribed. You will be on an antibiotic for 10 more days You will need a PET/CT scan in 4-6 weeks. Referrals: Sana Camejo MD [Primary Care Provider] - Activity:: Activity as Tolerated Equipment/Supplies:: No Equipment Needed Diet:: As Tolerated Discharge Orders Discharge Orders: Discharge Order (Routine); Ordered 01/02/20 Ordered By: Anu Thompson Other Ambulatory Orders: Complete Blood Count w/Diff (Routine) Location: None Selected Ordered By: Anu Thompson XR chest 2V PA & lateral (Routine) Timeframe: 2 Weeks Location: None Selected Ordered By: Anu Thompson DS: Summary Status at Discharge Functional status at discharge: uses cane/walker Overall status at discharge: patient is progressing back to baseline Mental Status: mental status grossly normal Speech and Movement: speech and movement normal Mood: congruent mood Affect: normal affect Exam Narrative Exam Narrative: Elderly female alert and oriented person place time circumstance. Heart regular rate and rhythm. Lungs are clear to auscultation anteriorly and posteriorly Abdomen soft and nontender nondistended normal bowel sounds Extremities without peripheral edema or cyanosis Psych Mental Status: mental status grossly normal Speech and Movement: speech and movement normal Mood: congruent mood Affect: normal affect DS: Data Vitals/I&O Vitals and I&O: Vital Signs Temperature 36.6 C 01/02/20 07:37 Temperature Source Tympanic 01/02/20 07:37 Pulse 72 01/02/20 07:37 Pulse Rhythm Regular 01/01/20 23:44 Pulse 92 H 12/30/19 12:11 Respiratory Rate 13 01/02/20 07:37 Respiratory Effort Non-Labored 01/01/20 23:44 Respiratory Depth Normal 01/01/20 23:44 Respiratory Pattern Normal 01/01/20 23:44 Blood Pressure 126/68 01/02/20 07:37 Blood Pressure Mean 86 12/30/19 11:44 Blood Pressure Position Sitting 12/29/19 23:40 Pulse Oximetry 92 01/02/20 07:37 Oxygen Delivery Method Room Air 01/02/20 07:37 Oxygen Flow Rate 0 01/02/20 07:37 Pain Level 0 01/02/20 07:37 Comment 12/30/19 23:05 Intake & Output 01/01/20 01/01/20 01/02/20 11:59 23:59 11:59 Intake Total 120 / 620 500 / 620 Balance 120 / 620 500 / 620 Intake: IV Oral 120 / 600 480 / 600 Other: Stool Size Moderate Stool Characteristics Soft Brown Voiding Methods Toilet Toilet Data Completed and Pending Completed studies during hospitalization [Text1]: Exam(s) a US:US renal EXAM: US RENAL CLINICAL HISTORY: UTI, r/o hydronephrosis/stone. TECHNIQUE: Beckford scale, color and spectral Doppler were used. COMPARISON: No exams were available for comparison FINDINGS: Renal size in cm: Right: 9.6. Left: 9.1. Echogenicity: Normal. Hydronephrosis: No. Cyst or mass: No. Nephrolithiasis: No. Other findings: None. Bladder:Normal. Ureteral jets: Right: Not visualized on this examination. Left: Not visualized on this examination. Prevoid vol:28 cc Postvoid vol:0 cc Renal color flow: Symmetric and within normal limits. IMPRESSION: Unremarkable examination. FINDINGS: MEDIASTINUM: Normal. HEART: Normal. PULMONARY VASCULATURE: Normal. LUNGS: Underlying chronic interstitial fibrosis. Areas of consolidation are seen in the right upper and right lower lobes. A nodular opacity measuring 1.3 cm is seen in adjacent to the left heart border. This was not apparent on the prior examination. There is hyperexpansion of the lungs suggesting underlying COPD. PLEURAL SPACE: There is a moderate size right pleural effusion. No left pleural effusion or pneumothorax. BONE:Degenerative changes. OTHER FINDINGS:Normal. IMPRESSION: 1. Right upper and right lower lobe infiltrates which may represent pneumonia or edema. 2. New 1.3 cm nodular opacity adjacent to the left heart border. While inflammatory or infectious process should be considered, neoplasm cannot be excluded. CT scan of the chest should be considered for further evaluation. 3. Interval development of a moderate right pleural effusion. FINDINGS: Tracheobronchial tree: Patent where visualized. Mediastinum and Soni: Limited visualization of the mediastinum is noted secondary to lack of IV contrast. There are mildly enlarged lymph nodes seen in the mediastinum. The largest measures 1 x 1.3 cm. Pulmonary parenchyma: Noncalcified pulmonary nodules are seen. These are primarily identified in the left lingula and the right upper lobe. The largest measures 0.5 cm. There is an infiltrate seen adjacent to the left heart border in the lingula likely accounting chest x-ray finding. This may represent pneumonia or atelectasis. There are areas of consolidation in the left lingula and the right upper, middle and lower lobes. Pleura: There is a small left and a moderate right pleural effusion. Heart: Cardiomegaly. Moderate coronary artery calcification. No significant pericardial effusion. Aorta: Thoracic aorta non-dilated. Atherosclerosis. Upper abdomen: Unremarkable. Lymph nodes: Please see above. Bones:Within normal limits. Soft tissues: Unremarkable. IMPRESSION: 1. Limited examination due to lack of IV contrast. 2. Multiple noncalcified pulmonary nodules are identified. Metastatic disease should be considered. An infectious or inflammatory process cannot be entirely excluded. 3. Multifocal areas of consolidation. Findings are suspicious for pneumonia. Please correlate clinically. 4. Bilateral pleural effusions. 5. Cardiomegaly. Coronary artery calcifications and atherosclerosis. 6. Mildly enlarged lymph nodes in the mediastinum which may be reactive. IMPRESSION: 1. A 13 x 9 mm nodular opacity at the left lung base, inflammatory versus neoplastic. Consider correlation with CT scan of the chest for further characterization if clinically indicated. 2. Pulmonary hyperinflation suggesting COPD associated with mild chronic interstitial fibrosis. 3. Superimposed areas of consolidation in the right upper lobe and right lower lobe may be secondary to pneumonia or alveolar edema. 4. Interval development of a [id number] right pleural effusion. Exam(s) a RAD:XR portable chest AP EXAM: XR PORTABLE CHEST AP CLINICAL HISTORY: follow up PNA, pleural effusion TECHNIQUE: 2D digital imaging was performed. COMPARISON: CR,XR XR PORTABLE CHEST AP from 12/29/2019 FINDINGS: There has been no significant change in appearance of the chest x-ray compared to the prior examination. Multifocal opacities are still seen in the lungs. T here is a stable small right pleural effusion. IMPRESSION: Stable Labs on day of discharge: Labs from last 24 hours 01/02/20 01/01/20 12/30/19 07:50 07:05 11:15 WBC 12.52 H D RBC 3.70 L Hgb 10.8 L Hct 32.8 L MCV 88.6 MCH 29.2 MCHC 32.9 RDW 12.7 Plt Count 244 MPV 10.1 Procalcitonin 0.2 Fluid Type Rt side pleural fld Fluid Total Protein 3.6 Fluid Amylase 12/30/19 11:15 WBC RBC Hgb Hct MCV MCH MCHC RDW Plt Count MPV Procalcitonin Fluid Type Rt side pleural fld Fluid Total Protein Fluid Amylase 21 Preliminary micro results at discharge 12/29/19 20:20 Blood Culture - Preliminary Blood NO GROWTH 72 HOURS 12/29/19 19:48 Blood Culture - Preliminary Blood NO GROWTH 72 HOURS 12/30/19 11:15 Anaerobic Culture - Preliminary Pleural 12/30/19 11:15 Body Fluid Culture - Preliminary Pleural PFSH Medical History Abnormal [place]; rib fracture; lacerated liver; fx-pelvis; perf. 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 states she is unsure Chest pain Depressive disorder Diverticulitis (09/27/13) 07/28 DNI (do not intubate) DNR (do not resuscitate) Epigastric pain Essential hypertension (01/14/13) Family history of GI malignancy Family history of GI malignancy Gastroesophageal reflux disease with esophagitis : EGD: metaplasia/no dysplasia EGD : reactive/chemical gastropathy/no H.Pylori/Oesophagus:neg. intestinal meta. or dysplasia GERD with esophagitis History of tobacco use Hx of fracture of pelvis pt. 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 Vaginal wall prolapse (08/19/11) Weight loss observed on examination Surgical History Abdominal hysterectomy Arthroplasty of knee (05/27/12) LEFT - Pt denies knee replacement Bilateral salpingectomy with oophorectomy Bladder Surgery Cholecystectomy Colonoscopy - [facility] [place] (~02/2012) Colonoscopy - [facility] (04/22/17) EGD - [facility] (04/22/17) KNEE SURGERY (~05/2012) Family History Mother , AGE 84 Heart disease Father , AGE 87 Stroke Heart disease Cancer Sister Stroke Brother Alcohol abuse Cancer Brother Cancer of kidney Son Hyperlipidemia Pulmonary disease Daughter Thyroid disease Daughter Cancer s/p hysterectomy Daughter No problems noted. Daughter No problems noted. Brother No problems noted. Maternal Grandfather No problems noted. Paternal Grandfather No problems noted. Maternal Grandmother No problems noted. Paternal Grandfather No problems noted. Social History Smoking/Tobacco Use Status: Former Tobacco Use Quit Date: 03/17/97 Second Hand Exposure: Yes Alcohol Intake: never Drug use: Never Substance use type: does not use Caregiver/Support person: No Household members: none Housing: house Communication Needs: Hard of Hearing and Corrective Lenses Pets and animals: Yes Pets and animals: dog(s) Sexually active: No Do you think of yourself as: straight/heterosexual Current gender identity: female What is your relationship status?: How often do you talk on the phone with friends or family?: decline to answer How often do you get together with friends or relatives?: decline to answer How often do you attend pentecostalism or nondenominational services?: decline to answer Do you belong to any clubs or organized social groups?: decline to answer Panel score (0-1 are the most socially isolated patients): 0 What type of physical activity do you participate in: none Frequency: does not exercise Carri/Yarsani: Quaker Special carri needs: No Seatbelt use: always Helmet use: No Drive intox 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
--- NOTE | 2020-01-02 08:34 | CMPROGNOTE_ITS ---
Care Management Progress Note S/O: Cathy remains pleasant in interaction and aware of her discharge plan. She reviewed her current living situation and reported she was not currently interested in working with [facility] or having MOW. She was agreeable to [facility] referral and home PT. She reported struggling to navigate supports in the community. CM reviewed CART items as MD reports Cathy will likely remain at [facility] through the weekend; Ctahy requested Crosswords and a notebook to take notes for discharge as well as extra briefs; CM provided all to Cathy who was thankful. CM continues to follow. A: 84 year old female admitted to [facility] 12/29/19 for Pneumonia, COPD P: Per MD, Cathy requires further monitoring and will likely remain at [facility] through the weekend. Physical therapy is recommending home PT upon discharge; CM will support coordination of orders upon discharge and notified CHIOMA Jaramillo. Cathy will transport via private vehicle with family, she will follow up with her PCP and plan of care as prescr
--- NOTE | 2020-01-02 08:43 | CMDISCH_ITS ---
LACE Index Scoring Tool - Questions: Length of Stay (in days): 4 - 6 Acuity (Admit via E.D.?): Yes Comorbidities: Chronic Pulmonary Disease, Any Tumor E.D. Visits: 5 - Answers: Total Score: 16 Risk of Readmission: High Risk Care Management Discharge Reason for Hospitalization: Pneumonia Discharge Plan: Cathy will return home when ready per provider. She will have new orders for VNA/PT through [facility]. She will follow up with her PCP and plan of care as prescribed. CM initiated referral to [facility] with Cathy's consent. She will transport home via private vehicle with her daughter. Patient/Family Education Needs: Review discharge instructions, discuss Ask Me Three. Services Needed at Discharge: Home Health Care Services (PT)
[2020-01-02] MEDS: Metoprolol 50 MG TAB PO (09:24)
[2020-01-02] MEDS: Omeprazole 20 MG CAPCR 40 MG PO (09:24)
[2020-01-02] MEDS: Polyethylene Glycol 3350 17 GM PACKET PO (09:24)
[2020-01-02] MEDS: Refresh PLUS Eye Drops 0.4ml 1 EACH OU (09:24)
[2020-01-02] MEDS: Docusate Sodium 100 MG CAP PO (09:24)
[2020-01-02] MEDS: predniSONE 20 MG TAB 40 MG PO (09:24)
--- NOTE | 2020-01-02 09:25 | PDOC.HHF2F ---
Home Health Certification Home Health Certification: 1. Encounter Date and Reason I certify that MODE LEE was seen by Anu Thompson on 01/02/20 and that I had a [id number] encounter with this patient that meets the physician face to face encounter requirements. 2. Clinical Findings Supporting Skilled Need and Homebound Status I certify that home health services are medically necessary, include either intermittent prison and/or physical/speech therapy, and that this patient is homebound in that absences from the home require considerable and taxing effort and are infrequent or of short duration, or are attributable to the need to receive medical care. [X] (a) Attached documentation from encounter provides clinical findings supporting skilled need and homebound status (including what assistance patient requires to leave the home). The encounter with the patient was in whole, or in part, for the following medical condition, which is the primary reason for home health care: PNEUMONIA, COPD Physical Therapy: Patient would benefit from PT/OT for further stability and balance. Homebound: Unable to leave home without assistance. 3. Certification and Authentication I certify that I composed the above information based on my clinical judgement relating to this patient's medical condition and, if applicable, clinical findings communicated to me by the NPP or inpatient physician who performed the Home Health Referral. All further orders will be obtained through __Tommie Camejo (Community Based Physician - PCP)
--- NOTE | 2020-01-02 10:12 | PTTR_ITS ---
PT Notes Visit Reasons: PNEUMONIA, COPD 01/02/2020 SUBJECTIVE: Cathy stating she is feeling pretty good today. There is talk about her maybe going home today which she is happy about. OBJECTIVE: [id number], [id number] Pt standing in her room when I walk in. Agreeable to treatment. TRANSFERS Sit to stand: I Stand to sit: I GAIT Device: No device Weight bearing: full Assist: S Distance: 400' STAIRS: 3-4, 2-6 No rails, step over, S only THEREX: See flow sheet. Pt performs standing dynamic and static balance activities, light UE/LE strengthening. ASSESSMENT: Tolerates PT well. No LOB during gait or balance activities today. PLAN: Continue current POC. Treatment time: 24 minutes Total time: 24 minutes Jeanne Sadler PTA Clinic location: [facility] [place], [place]
--- NOTE | 2020-01-03 08:28 | PT.INDS ---
Date of service: 01/03/20 Time of Service: 08:28 PT Notes Visit Reasons: PNEUMONIA, COPD Inpatient Physical Therapy Discharge Summary Date: 01/03/20 Date of service: 12/31/2019 through 01/02/2020 This is a clinical summary of care provided on the duration of dates listed above. No charge was made in the completion of this documentation. Referring Doctor: Radha Deras PT Orders: PT CONSULT: Limited ability Precautions: Fall risk Patient Profile/Admitting Diagnosis: 84 year old female who presented to ER on 12/29/19 with c/o SOB. Medical work up diagnosed UTI, pneomonia with COPD exacerbation, R pleural effusion and is now S/P thoracenthesis as of 12/30/19. PMHX: Medical History Abnormal [place]; rib fracture; lacerated liver; fx-pelvis; perf. 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 states she is unsure Chest pain Depressive disorder Diverticulitis (09/27/13) 07/28 DNI (do not intubate) DNR (do not resuscitate) Epigastric pain Essential hypertension (01/14/13) Family history of GI malignancy Family history of GI malignancy Gastroesophageal reflux disease with esophagitis : EGD: metaplasia/no dysplasia EGD : reactive/chemical gastropathy/no H.Pylori/Oesophagus:neg. intestinal meta. or dysplasia GERD with esophagitis History of tobacco use Hx of fracture of pelvis pt. 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 She has a daughter who lives nearby. She does not have a lifeline, as she does not think she can afford it. She has two steps to enter her home without a rail. She has medium sized dog who is well trained. She does not generally utilize an assistive device. She has a walk in shower. Current Functional Limitations: Feels weak, unsteady with dynamic weightbearing. Equipment Owned/DME: None Subjective: NT. See most recent CHEMICAL PROCESS OPERATOR notes. Objective: General Observation: NT. See most recent CHEMICAL PROCESS OPERATOR notes. Mental Status: NT. See most recent CHEMICAL PROCESS OPERATOR notes. Pain: NT. See most recent CHEMICAL PROCESS OPERATOR notes. ROM: Right Upper Extremity: WFL Left Upper Extremity: WFL Right Lower Extremity: WFL Left Lower Extremity: WFL Strength: Right Upper Extremity: Grossly 4+/5 Left Upper Extremity: Grossly 4+/5 Right Lower Extremity: Grossly 5/5 Left Lower Extremity: Grossly 5/5 Sensation: WNL Bed Mobility/Transfers: Sit to stand: Independent Stand to sit: Independent Chair to bed, bed to chair: Independent Gait: 400 feet without an AD with FWB requiring supervision. Up and down three 4-inch steps and two 6-inch steps while holding onto no rails. Balance: Static Sitting: Good Dynamic Sitting: Good Static Standing: Good Dynamic Standing: Fair Assessment: Cathy demonstrated achievement of goals listed below during this episode of care as evidenced by discharge mobility levels above and goals listed below. Patient is a 84 year old female referred to physical therapy services with the diagnosis of pneumonia, s/p thorocentisis for management of pleural effusion in the setting of UTI and COPD exacerbation. Patient presents with clinical signs and symptoms consistent with weakness and poor balanceassociated with medical comorbidities and acute pneumonia, as demonstrated by the following impairment level findings: poor balance, dynamic instability, subjective weakness. Impairments are contributing to the following functional limitations: AMPAC score of 11%, unsafe stair ambulation and poor balance making independent living unsafe at this time. Goals: Goals X1 week 1. Supine-Sit I MET 2. Sit-Supine I MET 3. Sit-Stand I MET 4. Stand-Sit I MET 5. Bed-Chair I MET 6. Chair-Bed I MET 7. Gait I, 500 ft NOT MET 8. Stairs I, 3 steps, no rail NOT MET 9. Independent with home exercise program I NOT MET 10. Balance Good dyanic stability NOT MET DISCHARGE RECOMMENDATIONS: Home once above goals are met. TREATMENT CODE/TIME: [place] Thank you for the opportunity to participate in the care of this patient. Alyx Reyes PT, DPT, CLT [facility] [place], [place]
[2020-01-07 15:37] LABS: Misc Referral (MAYO) See Comments
== END 2020-01-02 11:37 | disposition home health service (06) | DRG 190 ==
LOC: ER 22:03 → ICU 23:15 → MS 12-30 14:54
PROVIDERS: Internal Medicine; Surgery; Admitting Provider General Practice; Emergency Provider Physician Assistant; PCP Family Medicine; Visit Provider General Practice
PROC: 0W993ZX Drainage of Right Pleural Cavity, Percutaneous Approach, Diagnostic (ICD-10-PCS; CPT 32554; principal; 2019-12-30 10:15)
DX: J44.0 Chronic obstructive pulmonary disease with (acute) lower respiratory infection (principal); J18.9 Pneumonia, unspecified organism; N30.01 Acute cystitis with hematuria; J90 Pleural effusion, not elsewhere classified; F32.9 Major depressive disorder, single episode, unspecified; Z66 Do not resuscitate; I10 Essential (primary) hypertension; R63.4 Abnormal weight loss; Z68.22 Body mass index [BMI] 22.0-22.9, adult; E78.5 Hyperlipidemia, unspecified; N39.46 Mixed incontinence; Z87.891 Personal history of nicotine dependence; K21.00 Gastro-esophageal reflux disease with esophagitis, without bleeding; H35.30 Unspecified macular degeneration; R91.8 Other nonspecific abnormal finding of lung field; E83.42 Hypomagnesemia; B96.20 Unspecified Escherichia coli [E. coli] as the cause of diseases classified elsewhere; K21.9 Gastro-esophageal reflux disease without esophagitis
CPT/HCPCS: 32555; 36415; 71250; 76770; 80048; 80053; 84145; 84311; 85027; 87040; 87077; 87102; 87116; 87206; 87252; 93005; 94640; 96361; 96365; 96375; 97110; 97112; 97161; 97530; 99222; 99232; 99233; 99239; 99252; 99285; U0003; 71045; 81003; 81015; 81373; 82150; 83605; 83615; 83735; 83880; 83986; 84155; 84157; 84484; 85025; 87070; 87075; 87086; 87186; 87205; 88104; 89051; 93010; 94667; J0456; J0696; J1200; J1644; J2405; J3490; J7512; J7620

== ENCOUNTER 2020-01-06 04:01 | Outpatient (CLI) | payer MEDICARE, OTHER, SELFPAY ==
[2020-01-06 11:02] LABS: Abs Immature Grans 0.41 10^3/uL (0.0-0.06); Absolute Basophil Count 0.01 10^3/uL (0.0-0.2); Absolute Eosinophil Count 0.02 10^3/uL (0.0-0.7); Absolute Lymphocyte Count 0.78 10^3/uL (1.2-3.4); Absolute Monocyte Count 0.38 10^3/uL (0.1-0.8); Absolute Neutrophil Count 10.54 10^3/uL (1.2-6.7); Basophils % 0.1; Eosinophils % 0.2; HCT 37.2 % (36.0-46.0); HGB 12.1 g/dL (11.2-15.7); Immature Grans % 3.4; Lymphocytes % 6.4; MCH 29.1 pg (27.0-33.0); MCHC 32.5 % (32.0-36.0); MCV 89.4 fL (80-95); MPV 9.6 fL (8.0-11.0); Monocytes % 3.1; Neutrophils % 86.8; Nucleated RBC 0 %; Platelet Count 299 10^3/uL (130-400); RBC 4.16 10^6/uL (3.93-5.22); RDW 12.5 % (11.7-14.6); RDW-SD 41.1 fL; WBC 12.14 10^3/uL (4.4-10.8)
== END 2020-01-06 04:21 ==
PROVIDERS: PCP Family Medicine; Visit Provider Nurse Practitioner Family
DX: J18.9 Pneumonia, unspecified organism (principal)
CPT/HCPCS: 36415; 85025

== ENCOUNTER 2020-01-14 11:03 | Outpatient (REF) | payer MEDICARE, OTHER, SELFPAY ==
[2020-01-14 14:36] LABS: ALT 28 U/L (14-59); AST 18 U/L (15-37); Albumin 3.1 g/dL (3.4-5.0); Alkaline Phosphatase 104 U/L (46-116); Anion Gap 5.6 mmol/L (3-11); BUN 18 mg/dL (7-18); Bilirubin, Total 0.6 mg/dL (0.2-1.0); CO2 29.4 mmol/L (21.0-32.0); CREATININE 0.99 mg/dL (0.55-1.02); Calcium 8.7 mg/dL (8.5-10.1); Chloride 93 mmol/L (98-107); Glucose 193 mg/dL (74-106); Potassium 4.6 mmol/L (3.5-5.1); Sodium 128 mmol/L (136-145); Total Protein 5.8 g/dL (6.4-8.2)
== END 2020-01-14 11:23 ==
LOC: NCHCN 11:03
PROVIDERS: PCP Family Medicine; Visit Provider Emergency Medicine
DX: E87.1 Hypo-osmolality and hyponatremia (principal)
CPT/HCPCS: 80053

== ENCOUNTER 2020-01-17 02:19 | Outpatient (CLI) | payer MEDICARE, OTHER, SELFPAY ==
--- NOTE | 2020-01-17 | DI.RAD_ITS ---
EXAM: XR CHEST 2V PA LATERAL CLINICAL HISTORY: F/U PNEUMONIA TECHNIQUE: 2D digital imaging was performed. COMPARISON: CR XR PORTABLE CHEST AP from 07/22/2019 CR XR PORTABLE CHEST AP from 12/31/2019 FINDINGS: MEDIASTINUM: Normal. HEART: Normal. PULMONARY VASCULATURE: Normal. LUNGS: The pulmonary infiltrates have resolved since the prior examination. Linear atelectasis or sc arring is seen in the right lung base. PLEURAL SPACE: The pleural effusion has resolved. No effusion or pneumothorax is identified. BONE:Within normal limits for the patient's age. OTHER FINDINGS:Surgical clips in the right upper quadrant of the abdomen likely reflecting prior chol ecystectomy. IMPRESSION: Resolution of the multifocal pneumonia. DATA REPOSITORY: RADIATION DOSE DELIVERED:
== END 2020-01-17 02:39 ==
PROVIDERS: PCP Family Medicine; Visit Provider Nurse Practitioner Family
DX: Z87.09 Personal history of other diseases of the respiratory system (principal); E87.1 Hypo-osmolality and hyponatremia; I10 Essential (primary) hypertension
CPT/HCPCS: 36415; 80048; 83935; 71046; 83930; 84300

== ENCOUNTER 2020-01-17 03:41 | Outpatient (CLI) | payer MEDICARE, OTHER, SELFPAY ==
[2020-01-17 14:24] LABS: Anion Gap 5.3 mmol/L (3-11); BUN 17 mg/dL (7-18); CO2 30.7 mmol/L (21.0-32.0); CREATININE 0.98 mg/dL (0.55-1.02); Calcium 8.4 mg/dL (8.5-10.1); Chloride 95 mmol/L (98-107); Estimated GFR 54.33 (mL/min/1.73m2); Glucose 98 mg/dL (74-106); Potassium 4.5 mmol/L (3.5-5.1); Sodium 131 mmol/L (136-145)
[2020-01-17 14:38] LABS: Sodium, Urine 44 mmol/L
[2020-01-20 16:07] LABS: Osmolality Serum 277 mOsm/kg (275-295); Osmolality, Urine 446 mOsm/kg (150-1150)
== END 2020-01-17 04:01 ==
PROVIDERS: PCP Family Medicine; Visit Provider Emergency Medicine
DX: E87.1 Hypo-osmolality and hyponatremia (principal); I10 Essential (primary) hypertension
CPT/HCPCS: 36415; 80048; 83935; 83930; 84300

== ENCOUNTER 2020-02-01 20:37 | Outpatient (REF) | payer MEDICARE, OTHER, SELFPAY | END 2020-02-01 20:57 | LOC: NCHCN 20:37 | PROVIDERS: PCP Family Medicine; Visit Provider Physician Assistant | DX: N30.01 Acute cystitis with hematuria (principal) | CPT/HCPCS: 87086 ==

== ENCOUNTER 2020-02-02 00:53 | Outpatient (CLI) | payer MEDICARE, OTHER, SELFPAY ==
--- NOTE | 2020-02-02 | DI.CT_ITS ---
EXAM: CT CHEST/ABD/PEL W CLINICAL HISTORY: OCCULT CA,ABNL WT LOSS,ANEMIA,CHEST PAIN,R07.1,R63.4,D64.9 TECHNIQUE: Imaging Protocol: Axial computed tomography images with coronal and sagittal reformatted images were created and reviewed CONTRAST MATERIAL: Intravenous: Omnipaque 350 Contrast volume:100 mL Oral: Yes COMPARISON: CT CT ABDOMEN PELVIS W from 07/26/[address] CHEST WO from 12/30/2019 FINDINGS: CHEST: Tracheobronchial tree: Patent where visualized. Mediastinum and Soni: No dominant adenopathy or fluid collection. The largest lymph node has a short axis diameter of 0.5 cm. Pulmonary parenchyma: There has been significant improvement of the reticular nodular infiltrates in the lungs. There are, however, small residual infiltrates seen in the right upper lobe, the right lo wer lobe and the left lingula. No architectural distortion. Pleura: There is resolution of the pleural effusions. No pneumothorax. Heart: The heart is not dilated. Moderate coronary artery calcification. No significant pericardial effusion. Aorta: Thoracic aorta non-dilated. Moderate atherosclerosis. Lymph nodes: Within normal limits. Bones:Degenerative changes. Soft tissues: Unremarkable. ABDOMEN: Liver: Normal density. No measurable mass. Portal, Superior Mesenteric, and Splenic Veins: Unremarkable. Gallbladder and Biliary Tract: Status post cholecystectomy. Stable post cholecystectomy dilatation o f the bile ducts. Pancreas: Normal density, no abnormal calcifications or inflammatory process. Spleen: Stable cyst in the superior aspect of the spleen. Adrenals: Stable nodularity of the adrenal glands. Kidneys: Normal size, contour and axis. No radiodense stones or obstructive uropathy. No masses seen. Abdominal Aorta: Abdominal portion non-dilated. Moderate atherosclerosis. Bowel: No obstruction or bowel wall thickening. Appendix is unremarkable. Peritoneal Cavity: No ascites, collection or mesenteric inflammatory response. Lymph Nodes: Within normal limits. Bones: Degenerative changes are present. Old pelvic fractures are present. There are side plates tr aversing the symphysis pubis which causes artifact in the pelvis. No aggressive osseous lesions are identified. Soft Tissues: Unremarkable. PELVIS: Bladder: Obscured by the metallic artifact in the symphysis pubis. Reproductive Organs: The patient appears to be status post hysterectomy. Lymph Nodes: Within normal limits. Bones: Please see above. IMPRESSION: 1. No evidence of a abdominal mass or metastatic disease. 2. Stable chronic findings in the abdomen and pelvis. 3. Marked improvement in the multifocal pulmonary infiltrates since 12/30/2019. There are small resi dual infiltrates again noted in the right upper lobe, left lingula and the right lower lobe. RADIATION DOSE DELIVERED: 1,228.81mGy.cm Total DLP DATA REPOSITORY: All CT scans at this facility are submitted to the National Radiology Data Registry (NRDR) Dose Index Registry (DIR) with the [employer] (ACR). RADIATION OPTIMIZATION: All CT scans at this facility use at least one of these dose optimization te chniques: automated exposure control; mA and/or kV adjustment per patient size (includes targeted exa ms where dose is matched to clinical indication); or iterative reconstruction.
[2020-02-02] MEDS: Omnipaque 350 MG/ML 50 ML BTL IJ (09:39)
[2020-02-02] MEDS: Breeza Beverage 473 ML BTL PO ×2 (09:39→09:40)
[2020-02-02] MEDS: Omnipaque 350 MG/ML 100 ML BTL IJ (10:40)
== END 2020-02-02 01:13 ==
PROVIDERS: PCP Family Medicine; Visit Provider Emergency Medicine
DX: R07.1 Chest pain on breathing (principal); R91.8 Other nonspecific abnormal finding of lung field; R63.4 Abnormal weight loss; D64.9 Anemia, unspecified
CPT/HCPCS: 74177; 71260; J3490; Q9967

== ENCOUNTER 2020-02-04 03:27 | Outpatient (CLI) | payer MEDICARE, OTHER, SELFPAY ==
[2020-02-04 10:17] LABS: Abs Immature Grans 0.02 10^3/uL (0.0-0.06); Absolute Basophil Count 0.02 10^3/uL (0.0-0.2); Absolute Eosinophil Count 0.01 10^3/uL (0.0-0.7); Absolute Monocyte Count 0.66 10^3/uL (0.1-0.8); Absolute Neutrophil Count 4.69 10^3/uL (1.2-6.7); Basophils % 0.3; Eosinophils % 0.2; HCT 35.8 % (36.0-46.0); HGB 12.1 g/dL (11.2-15.7); Immature Grans % 0.3; Lymphocytes % 15.6; MCH 29.7 pg (27.0-33.0); MCHC 33.8 % (32.0-36.0); Monocytes % 10.3; Neutrophils % 73.3; Nucleated RBC 0 %; Platelet Count 208 10^3/uL (130-400); RBC 4.07 10^6/uL (3.93-5.22); RDW 13.5 % (11.7-14.6); RDW-SD 43.7 fL
[2020-02-04 11:09] LABS: ESR 16 mm/hr (0-30)
[2020-02-04 11:41] LABS: Iron 54 ug/dL (50-170); Total Iron Binding Capacity 278 ug/dL (250-450); Transferrin Sat 19 % (15-50)
[2020-02-04 11:43] LABS: ALT 22 U/L (14-59); AST 20 U/L (15-37); Albumin 3.6 g/dL (3.4-5.0); Alkaline Phosphatase 108 U/L (46-116); Anion Gap 5.3 mmol/L (3-11); BUN 15 mg/dL (7-18); Bilirubin, Total 0.4 mg/dL (0.2-1.0); CO2 31.7 mmol/L (21.0-32.0); CREATININE 0.89 mg/dL (0.55-1.02); Calcium 8.6 mg/dL (8.5-10.1); Chloride 93 mmol/L (98-107); Glucose 98 mg/dL (74-106); Potassium 4.9 mmol/L (3.5-5.1); Sodium 130 mmol/L (136-145); Total Protein 6.3 g/dL (6.4-8.2)
[2020-02-04 11:52] LABS: C-Reactive Protein 0.09 mg/dL (0.0-0.3)
== END 2020-02-04 03:47 ==
PROVIDERS: PCP Family Medicine; Visit Provider Emergency Medicine
DX: D64.9 Anemia, unspecified (principal); E22.2 Syndrome of inappropriate secretion of antidiuretic hormone; E87.1 Hypo-osmolality and hyponatremia
CPT/HCPCS: 36415; 80053; 85652; 83540; 83550; 85025; 86140

== ENCOUNTER 2020-04-05 04:07 | Outpatient (CLI) | payer MEDICARE, SELFPAY ==
[2020-04-05 11:15] LABS: Anion Gap 4.7 mmol/L (3-11); BUN 16 mg/dL (7-18); CO2 33.3 mmol/L (21.0-32.0); CREATININE 0.89 mg/dL (0.55-1.02); Calcium 8.9 mg/dL (8.5-10.1); Chloride 94 mmol/L (98-107); Glucose 95 mg/dL (74-106); Potassium 4.6 mmol/L (3.5-5.1); Sodium 132 mmol/L (136-145)
== END 2020-04-05 04:27 ==
PROVIDERS: PCP Family Medicine; Visit Provider Emergency Medicine
DX: I10 Essential (primary) hypertension (principal)
CPT/HCPCS: 36415; 80048

== ENCOUNTER 2020-04-12 01:50 | Outpatient (CLI) | payer MEDICARE, SELFPAY ==
--- NOTE | 2020-04-12 10:50 | DI.MAMMO_ITS ---
EXAM: MG MAMMO DIAGNOSTIC UNI CLINICAL HISTORY: LEFT breast pain,n64.4. COMPARISON: MG SCREENING TRACI MAMMO W/CAD DIGI from 02/27/2011 MG DIAGNOSTIC BILAT MAMMO W/CAD from 01/22/2013 MG Screening Bilat Mammo from 02/20/2017 US US BREAST LT LIMITED from 11/23/2019 MG MG MAMMO DIAGNOSTIC BI from 11/23/[address] CHEST/ABD/PEL W from 02/02/2020 [id number] TECHNIQUE: Craniocaudal and mediolateral oblique Full Field Digital Mammography views of the left br east with Computer Aided Diagnosis followed by Tomosynthesis . FINDINGS: Mammography/Tomosynthesis: Masses/Architectural Distortion: None seen. Microcalcifications: No suspicious pleomorphic-type are seen. Skin Thickening/Nipple Retraction: None. No change from the previous exam. IMPRESSION: 1. No evidence of malignancy is noted. BI-RADS Category 1 - Negative Breast Density - Category B - Scattered areas of fibroglandular density A negative radiographic report should not delay biopsy if a dominant or clinically suspicious mass is present. Up to ten percent of cancers are not identified on mammography. A negative report may reinforce clinical impression. Adenosis and dense breasts may obscure an underlying neoplasm. False positive reports average 6 to 10%. Patient will receive a letter notifying them of these results.
== END 2020-04-12 02:10 ==
PROVIDERS: PCP Family Medicine; Visit Provider Emergency Medicine
DX: N64.4 Mastodynia (principal)
CPT/HCPCS: 77061; 77065; G0279

== ENCOUNTER 2020-05-05 01:20 | Outpatient (CLI) | payer MEDICARE, SELFPAY ==
--- NOTE | 2020-05-05 14:45 | DI.RAD_ITS ---
EXAM: XR CHEST 2V PA LATERAL CLINICAL HISTORY: residual RUL,RLL,L lingula infiltrates on CT 02/03,WT LOSS, HYPONATREMIA, TECHNIQUE: 2D digital imaging was performed. COMPARISON: CR XR CHEST 2V PA LATERAL from 01/17/[address] CHEST/ABD/PEL W from 02/02/[address] CHEST/ABD/PEL W from 02/02/2020 FINDINGS: Heart size is normal. There is mild calcification at the aortic arch is appears normal diameter. Th ere are old right rib fractures. There is pleural thickening near the lung apices. There are mild f ibrotic changes. No superimposed infiltrate, effusion pulmonary is seen no thoracic compression frac tures are seen. IMPRESSION: No acute pulmonary findings. DATA REPOSITORY: RADIATION DOSE DELIVERED:
== END 2020-05-05 01:21 ==
LOC: DI 01:20
PROVIDERS: PCP Family Medicine; Visit Provider Family Medicine
DX: R91.8 Other nonspecific abnormal finding of lung field (principal); R93.89 Abnormal findings on diagnostic imaging of other specified body structures; R63.4 Abnormal weight loss
CPT/HCPCS: 36415; 85652; 71046; 82728; 83540; 83550; 84165

== ENCOUNTER 2020-05-05 02:45 | Outpatient (CLI) | payer MEDICARE, SELFPAY ==
[2020-05-05 16:25] LABS: Ferritin 157 ng/mL (8-252)
[2020-05-05 16:41] LABS: Iron 49 ug/dL (50-170); Total Iron Binding Capacity 308 ug/dL (250-450); Transferrin Sat 16 % (15-50)
[2020-05-05 18:30] LABS: ESR 32 mm/hr (<or=30)
[2020-05-08 13:53] LABS: Albumin 59.2 % (55.8-66.1); Total Protein 6.2 g/dL (6.3-8.2)
== END 2020-05-05 02:46 | disposition home or self-care (01) ==
LOC: LBO 02:45
PROVIDERS: PCP Family Medicine; Visit Provider Family Medicine
DX: K29.60 Other gastritis without bleeding (principal); R63.4 Abnormal weight loss
CPT/HCPCS: 36415; 85652; 82728; 83540; 83550; 84165

== ENCOUNTER 2020-06-11 09:59 | Emergency (ER) | payer MEDICARE, SELFPAY ==
[2020-06-11 10:07] VITALS: BP 141/95; PULSE 59; RESP 16; TEMP 36.5; O2SAT 95
--- NOTE | 2020-06-11 10:47 | ED.GENADUL_ITS ---
Discharge Plan Disposition Patient Disposition: HOME Condition: Good Discharge Details Clinical Impression: Rash Primary Care Provider: Sana Camejo ED Provider: Gilda Odom Home Meds and New Rx's Prescriptions: New hydrocortisone 2.5 % ointment 1 applic topical BID Qty: 20 RF: 0 Continued polyethylene glycol 3350 [Miralax] 17 gram/dose powder 17 gm PO DAILY PRN (Reason: constipation) Qty: 238 RF: 2 Hold Instructions: Home Medication placed on hold at Doctor's office simvastatin 5 mg tablet 5 mg PO QHS Qty: 90 RF: 3 PreserVision AREDS 7,160-113-100 rukv-ey-vafx tablet 1 tab PO BID Qty: 30 RF: 0 acetaminophen [Tylenol Extra Strength] 500 mg tablet 500 mg PO QID PRN (Reason: pain) Qty: 30 RF: 0 omeprazole 40 mg capsule,delayed release(DR/EC) 40 mg PO DAILY Qty: 90 RF: 2 alum-mag hydroxide-simeth [Mylanta Maximum Strength] 400-400-40 mg/5 mL suspension 15 ml PO Q6H PRN (Reason: indigestion) RF: 0 (DME) Aerochamber MV Spacer See Rx Instructions .ROUTE .MEDSUPPLY Qty: 1 RF: 1 albuterol sulfate 90 mcg/actuation HFA aerosol inhaler 1 - 2 inh IH Q6H PRN (Reason: shortness of breath or wheezing) Qty: 8.5 RF: 6 metoprolol tartrate 50 mg tablet 50 mg PO BID Qty: 180 RF: 4 lorazepam 0.5 mg tablet 0.25 mg PO DAILY PRN (Reason: anxiety) Qty: 25 RF: 0 estradiol 0.01 % (0.1 mg/gram) cream 1 g vaginal DAILY Qty: 42.5 RF: 2 Discharge Instructions Instructions: Acute Rash (ED) Additional Instructions: Please stop using your new hand cream and go back to the cream that you have been using before. I am concerned that this may be irritating your hands and then you are touching her face. Hydrocortisone cream prescribed should help with the symptoms. Please keep your upcoming appointment with primary care for reevaluation and to discuss your other chronic concerns. If he develops fever/chills, worsening rash or other new/worsening symptoms please seek care urgently once again. Referrals: Sana Camejo MD [Primary Care Provider] - Medical Decision Making Patient is a pleasant 85-year-old female presenting today with chief complaint of rash. She reports over the past 2 to 5 days she has been developing a rash in her bilateral hands as well as her forehead. States it is very itchy. She denies any pain. No fevers or chills. Patient was initially concerned that this may have been shingles. On exam, patient appears nontoxic. Patient is bradycardic with a heart rate of 59 the patient is on the beta-matilda and is asymptomatic. Exam of the face shows a focal area that has few scattered palpable bumps. No erythema, warmth or drainage. Nontender to palpation. No fluctuance. This does appear excoriated. Patient also has similar flesh-colored bumps on her palms as well as the dorsum of the hands bilaterally. Again, no evidence to suggest an acute infection. No vesicular lesions consistent with shingles. This is also bilateral. On further discussion with patient, patient reports that she began a new hand cream few weeks ago. I am wondering if this was causing her irritation and she is been wiping her face leading to spreading of contact dermatitis. Denies any evidence to suggest shingles. The rash is not consistent with syphilis. Patient is also concerned about chronic bilateral arm pain which she has discussed with her primary care provider. She reports that she also have chronic hyponatremia. She is asymptomatic. Advised that she should discuss these chronic issues further with her primary care. She does have an upcoming appointment with her PCP in a week and a half. Regards to the rash currently, I advised that she stop using the new hand cream and go back to what she had been using previously. I advised a steroid cream may be of benefit and prescribed h er steroid ointment which she may lemon picker at her pharmacy. I discussed new/worsening symptoms that should prompt her to seek care urgently once again. All of her questions and concerns were addressed and she is agreement this plan. HPI General Mode of arrival: ambulatory . Date/Time Provider Initiated Documentation: 06/11/20 10:01 . Limitations to Documentation: no limitations . Information obtained by: patient and RN notes reviewed . History of Present Illness 85 year old F presents to the emergency department with the chief complaint of rash on hands and forehead, described as moderate, Quality is described as other (itchy), and is localized to the face, left, right and upper extremity. Patient started experiencing this day(s) (2-5) and it has been constant. No relieving factors improve symptom(s), Other factors that worsen symptoms (itching the areas will cause spread) . Patient notes no other symptoms.. Patient did receive the following treatments prior to arrival, none Related Data Home Medications Medication Instructions Recorded Confirmed polyethylene glycol 3350 17 17 gm PO DAILY PRN #238 gm 06/18/19 06/11/20 gram/dose oral powder simvastatin 5 mg tablet 5 mg PO QHS #90 tab-cap 07/08/19 06/11/20 vitamins A,C,S-lyci-jhcmys 7,160 1 tab PO BID #30 tab 07/08/19 06/11/20 unit-113 mg-100 unit tablet acetaminophen 500 mg tablet 500 mg PO QID PRN #30 tab 07/14/19 06/11/20 aluminum-mag hydroxide-simethicone 15 ml PO Q6H PRN ml 08/03/19 06/11/20 400 mg-400 mg-40 mg/5 mL oral susp albuterol sulfate 90 mcg/actuation 1 - 2 inh IH Q6H PRN #8.5 gm 12/27/19 aerosol inhaler metoprolol tartrate 50 mg tablet 50 mg PO BID #180 tab-cap 12/31/19 06/11/20 inhalational spacing device #1 ea 01/14/20 04/07/20 lorazepam 0.5 mg tablet 0.25 mg PO DAILY PRN #25 tab 02/02/20 06/11/20 omeprazole 40 mg capsule,delayed 40 mg PO DAILY #90 cap 04/19/20 06/11/20 release estradiol 1 g VAGINAL DAILY #42.5 g 04/29/20 06/11/20 hydrocortisone 1 applic TOPICAL BID #20 g 06/11/20 Previous Rx's Medication Instructions Recorded polyethylene glycol 3350 17 17 gm PO DAILY PRN #238 gm 06/18/19 gram/dose oral powder simvastatin 5 mg tablet 5 mg PO QHS #90 tab-cap 07/08/19 vitamins A,C,R-bgbu-orhzez 7,160 1 tab PO BID #30 tab 07/08/19 unit-113 mg-100 unit tablet acetaminophen 500 mg tablet 500 mg PO QID PRN #30 tab 07/14/19 albuterol sulfate 90 mcg/actuation 1 - 2 inh IH Q6H PRN #8.5 gm 12/27/19 aerosol inhaler metoprolol tartrate 50 mg tablet 50 mg PO BID #180 tab-cap 12/31/19 inhalational spacing device #1 ea 01/14/20 lorazepam 0.5 mg tablet 0.25 mg PO DAILY PRN #25 tab 02/02/20 omeprazole 40 mg capsule,delayed 40 mg PO DAILY #90 cap 04/19/20 release estradiol 1 g VAGINAL DAILY #42.5 g 04/29/20 hydrocortisone 1 applic TOPICAL BID #20 g 06/11/20 Allergies Allergy/AdvReac Type Severity Reaction Status Date / Time ciprofloxacin [From Cipro] Allergy Intermediate Lips and Verified 06/11/20 10:13 face burn, feels shaky, arm tingly codeine AdvReac Intermediate Dizziness/L Verified 06/11/20 10:13 ightheade lovastatin AdvReac Intermediate myalgias Verified 06/11/20 10:13 oxycodone AdvReac Intermediate NAUSEA, GI Verified 06/11/20 10:13 UPSET azithromycin AdvReac cramping, Verified 06/11/20 10:13 anorexia doxycycline AdvReac Nausea, Verified 06/11/20 10:13 Vomiting hydrocodone AdvReac unknown Verified 06/11/20 10:13 General Stated Complaint: RashLesion MELINDA: 5 Review of Systems Constitutional Constitutional: Reports as per HPI, Denies chills and Denies fever(s) Eyes Eyes: Denies blurry vision and Denies change in vision ENT Ears, Nose, Mouth, and Throat: Denies mouth lesions, Reports nasal discharge (reports chronic runny nose), Denies sore throat, Denies throat swelling and Denies tongue swelling Cardiovascular Cardiovascular: Reports dyspnea (chronic, associates with COPD) Respiratory Respiratory: Reports dyspnea (chronic, associates with COPD) Gastrointestinal Gastrointestinal: Denies change in bowel habits, Denies nausea and Denies vomiting Musculoskeletal Musculoskeletal: Reports as per HPI Integumentary/Breasts Skin/Breast: Reports as per HPI Neurologic Neurologic: Reports as per HPI, Denies sensory deficit and Denies paresthesias Allergic/Immunologic Allergic/Immunologic: Denies throat swelling and Denies tongue swelling PFSH Medical History (Updated 06/11/20 @ 10:44 by FADIA Coulter) Abnormal [place]; rib fracture; lacerated liver; fx-pelvis; perf. intestine Anemia Atrophic vaginitis (08/19/11) Pt. states she is unsure Breast pain, left Chest pain Depressive disorder Diverticulitis (09/27/13) 07/28 DNI (do not intubate) DNR (do not resuscitate) Epigastric pain Essential hypertension (01/14/13) Family history of GI malignancy Family history of GI malignancy Gastroesophageal reflux disease with esophagitis : EGD: metaplasia/no dysplasia EGD : reactive/chemical gastropathy/no H.Pylori/Oesophagus:neg. intestinal meta. or dysplasia GERD with esophagitis History of tobacco use Hx of fracture of pelvis pt. 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 Daughter No problems noted. Brother No problems noted. Maternal Grandfather No problems noted. Paternal Grandfather No problems noted. Maternal Grandmother No problems noted. Paternal Grandfather No problems noted. Social History Smoking/Tobacco Use Status: Former Tobacco Use Quit Date: 03/17/97 Second Hand Exposure: Yes Smoking risk assessment performed?: Yes Alcohol Intake: never Drug use: Never Substance use type: does not use Caregiver/Support person: No Household members: none Housing: house Communication Needs: Hard of Hearing and Corrective Lenses Pets and animals: Yes Pets and animals: dog(s) Sexually active: No Do you think of yourself as: straight/heterosexual Current gender identity: female What is your relationship status?: How often do you talk on the phone with friends or family?: decline to answer How often do you get together with friends or relatives?: decline to answer How often do you attend taoist or sabianist services?: decline to answer Do you belong to any clubs or organized social groups?: decline to answer Panel score (0-1 are the most socially isolated patients): 0 What type of physical activity do you participate in: none Frequency: does not exercise Carri/Yarsanism: [employer] Special carri needs: No Seatbelt use: always Helmet use: No Drive intox 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 entry 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 truck 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 Do you feel safe at home: Yes Do you feel safe in your relationship?: Yes Exam Const General: cooperative, healthy appearing, comfortable, no acute distress and well developed Nutritional Appearance: average body habitus and well nourished Orientation: alert and awake [facility] Head: normal to inspection Ears: hearing grossly normal bilaterally General nose exam: external nose normal (dry and pink, appears to be from frequent wiping), nares normal and other (no rash appreciated) Face and sinus: no abrasions, no crepitus, erythema (slightly raised, pink, nontender area that appears excoriated), no fluctuance, no lacerations, no sinus tenderness and no tenderness Face images: 1. area described above Mouth: oral mucosae normal, lip normal, tongue normal, no muffled voice and no trismus Throat: posterior oropharynx normal Resp Effort & Inspection: normal respiratory effort, able to speak in complete sentences and no respiratory distress Auscultation: clear to auscultation bilaterally Cardio Rate: regular rate Rhythm: regular rhythm Heart Sounds: S1 normal and S2 normal Skin Rashes: rashes noted (as above to forehead. 3 small papules, skin colored, on bilateral hands) Neuro General: patient alert and patient awake Cognition: normal cognition Speech: speech normal Gait: normal gait Sensory Exam: no sensory deficits noted Extrem Hand/finger images: 1. 2. 3. Areas of small raised papules. No vesicular lesions. Left is excoriated. No erythema, warmth, drainage. Psych Appearance: grossly normal and well kempt Mental Status: mental status grossly normal Speech and Movement: speech and movement normal Course Vital Signs Vital signs: Vital Signs Temperature 36.5 C 06/11/20 10:07 Pulse 59 L 06/11/20 10:07 Respiratory Rate 16 06/11/20 10:07 Blood Pressure 141/95 H 06/11/20 10:07 Pulse Oximetry 95 06/11/20 10:07 Temperature 36.5 C 06/11/20 10:07 Temperature Source Oral 06/11/20 10:07 Pulse 59 L 06/11/20 10:07 Respiratory Rate 16 06/11/20 10:07 Respiratory Effort Non-Labored 06/11/20 10:11 Blood Pressure 141/95 H 06/11/20 10:07 Blood Pressure Position Sitting 06/11/20 10:07 Pulse Oximetry 95 06/11/20 10:07 Oxygen Delivery Method Room Air 06/11/20 10:07 Oxygen Flow Rate 0 06/11/20 10:07
== END 2020-06-11 10:51 | disposition home or self-care (01) ==
PROVIDERS: Emergency Provider Physician Assistant; PCP Family Medicine
DX: L24.3 Irritant contact dermatitis due to cosmetics (principal)
CPT/HCPCS: 99283

== ENCOUNTER 2020-06-13 03:38 | Outpatient (CLI) | payer MEDICARE, SELFPAY ==
[2020-06-13 12:37] LABS: Abs Immature Grans 0.01 10^3/uL (0.0-0.06); Absolute Basophil Count 0.04 10^3/uL (0.0-0.2); Absolute Eosinophil Count 0.32 10^3/uL (0.0-0.7); Absolute Lymphocyte Count 1.66 10^3/uL (1.2-3.4); Absolute Monocyte Count 0.74 10^3/uL (0.1-0.8); Absolute Neutrophil Count 3.36 10^3/uL (1.2-6.7); Basophils % 0.7; Eosinophils % 5.2; HCT 36.4 % (36.0-46.0); HGB 11.7 g/dL (11.2-15.7); Immature Grans % 0.2; Lymphocytes % 27.1; MCH 29.2 pg (27.0-33.0); MCHC 32.1 % (32.0-36.0); MCV 90.8 fL (80-95); MPV 11.3 fL (8.0-11.0); Monocytes % 12.1; Neutrophils % 54.7; Nucleated RBC 0 %; Platelet Count 172 10^3/uL (130-400); RBC 4.01 10^6/uL (3.93-5.22); RDW 13.2 % (11.7-14.6); RDW-SD 43.8 fL; WBC 6.13 10^3/uL (4.4-10.8)
[2020-06-13 12:47] LABS: ALT 30 U/L (14-59); AST 20 U/L (15-37); Albumin 3.4 g/dL (3.4-5.0); Alkaline Phosphatase 129 U/L (46-116); Anion Gap 4.6 mmol/L (3-11); BUN 24 mg/dL (7-18); Bilirubin, Total 0.4 mg/dL (0.2-1.0); CO2 32.4 mmol/L (21.0-32.0); Chloride 101 mmol/L (98-107); Estimated GFR 52.95 (mL/min/1.73m2); Glucose 117 mg/dL (74-106); Potassium 4.4 mmol/L (3.5-5.1); Sodium 138 mmol/L (136-145); Total Protein 6.4 g/dL (6.4-8.2)
[2020-06-13 13:22] LABS: ESR 11 mm//hr (0-30)
== END 2020-06-13 03:39 | disposition home or self-care (01) ==
LOC: LOS 03:38
PROVIDERS: PCP Family Medicine; Visit Provider Family Medicine
DX: E87.1 Hypo-osmolality and hyponatremia (principal); R21 Rash and other nonspecific skin eruption
CPT/HCPCS: 36415; 80053; 85652; 85025

== ENCOUNTER 2020-06-26 02:35 | Outpatient (CLI) | payer MEDICARE, SELFPAY ==
--- NOTE | 2020-06-26 07:15 | DI.US_ITS ---
EXAM: US ABDOMEN CLINICAL HISTORY: epigastric pain/?induration/hyponatremia,R10.13 TECHNIQUE: Ultrasound of complete upper abdomen performed using standard protocol. COMPARISON: US US RENAL from 12/30/[address] CHEST/ABD/PEL W from 02/02/2020 CT scan 02/02/2020 was reviewed. FINDINGS: There is no ascites evident. LIVER: There are no hepatic lesions evident nor obvious dilatation of intrahepatic ducts. GALLBLADDER/BILIARY: The gallbladder surgically absent. The common hepatic duct isnot dilated, measuring 5-6mm at the level of ranjit hepatis. PANCREAS: Somewhat limited visualization due to overlying bowel gas. No obvious mass. SPLEEN: The spleen is not enlarged and there are no intrasplenic lesions evident. However, the splee n appears diffusely hyperechoic. KIDNEYS:Kidneys exhibit normal size with no evidence of solid mass, calculus, nor hydronephrosis. No cortical cysts evident. ABDOMINAL AORTA: Atherosclerotic but not enlarged IVC: Normal diameter where visualized. IMPRESSION: 1. The gallbladder surgically absent. The biliary tree is not dilated. 2. Of although not enlarged, the spleen appears diffusely hyperechoic, possibly significant. 3. There is no ascites. 4. The abdominal aorta is atherosclerotic but not enlarged. DATA REPOSITORY:
== END 2020-06-26 02:55 ==
PROVIDERS: PCP Family Medicine; Visit Provider Family Medicine
DX: R10.13 Epigastric pain (principal)
CPT/HCPCS: 76700

== ENCOUNTER 2020-07-17 02:22 | Outpatient (CLI) | payer MEDICARE, SELFPAY ==
[2020-07-17 12:55] LABS: Anion Gap 6.9 mmol/L (3-11); BUN 24 mg/dL (7-18); CO2 31.1 mmol/L (21.0-32.0); CREATININE 0.9 mg/dL (0.55-1.02); Calcium 8.7 mg/dL (8.5-10.1); Chloride 104 mmol/L (98-107); Glucose 98 mg/dL (74-106); Potassium 4.7 mmol/L (3.5-5.1); Sodium 142 mmol/L (136-145)
== END 2020-07-17 02:23 | disposition home or self-care (01) ==
LOC: LOS 02:23
PROVIDERS: PCP Family Medicine; Visit Provider Family Medicine
DX: E87.1 Hypo-osmolality and hyponatremia (principal)
CPT/HCPCS: 36415; 80048

== ENCOUNTER 2020-10-25 03:18 | Outpatient (CLI) | payer MEDICARE, SELFPAY ==
[2020-10-25 12:30] LABS: Abs Immature Grans 0.01 10^3/uL (0.0-0.06); Absolute Basophil Count 0.02 10^3/uL (0.0-0.2); Absolute Eosinophil Count 0.09 10^3/uL (0.0-0.7); Absolute Lymphocyte Count 1.37 10^3/uL (1.2-3.4); Absolute Monocyte Count 0.69 10^3/uL (0.1-0.8); Absolute Neutrophil Count 5.59 10^3/uL (1.2-6.7); Basophils % 0.3; Eosinophils % 1.2; HCT 37.6 % (36.0-46.0); Immature Grans % 0.1; Lymphocytes % 17.6; MCH 29.1 pg (27.0-33.0); MCHC 31.9 % (32.0-36.0); MPV 11.1 fL (8.0-11.0); Monocytes % 8.9; Neutrophils % 71.9; Nucleated RBC 0 %; Platelet Count 179 10^3/uL (130-400); RBC 4.13 10^6/uL (3.93-5.22); RDW 12.6 % (11.7-14.6); RDW-SD 42.1 fL; WBC 7.77 10^3/uL (4.4-10.8)
[2020-10-25 12:50] LABS: ALT 33 U/L (14-59); AST 24 U/L (15-37); Albumin 3.5 g/dL (3.4-5.0); Alkaline Phosphatase 146 U/L (46-116); Anion Gap 4.1 mmol/L (3-11); BUN 18 mg/dL (7-18); Bilirubin, Total 0.5 mg/dL (0.2-1.0); CO2 31.9 mmol/L (21.0-32.0); CREATININE 0.9 mg/dL (0.55-1.02); Calcium 8.8 mg/dL (8.5-10.1); Chloride 98 mmol/L (98-107); Glucose 131 mg/dL (74-106); Magnesium 1.8 mg/dL (1.8-2.4); Potassium 4.3 mmol/L (3.5-5.1); Sodium 134 mmol/L (136-145); Total Protein 6.4 g/dL (6.4-8.2)
== END 2020-10-25 03:19 | disposition home or self-care (01) ==
LOC: LOS 03:19
PROVIDERS: PCP Family Medicine; Visit Provider Family Medicine
DX: K29.60 Other gastritis without bleeding (principal); E87.1 Hypo-osmolality and hyponatremia; E83.42 Hypomagnesemia
CPT/HCPCS: 36415; 80053; 83735; 85025

== ENCOUNTER 2020-11-22 14:47 | Outpatient (REF) | payer MEDICARE, SELFPAY ==
[2020-11-22 17:51] LABS: ALT 28 U/L (14-59); AST 21 U/L (15-37); Albumin 3.7 g/dL (3.4-5.0); Alkaline Phosphatase 133 U/L (46-116); Anion Gap 6.9 mmol/L (3-11); BUN 19 mg/dL (7-18); Bilirubin, Total 0.5 mg/dL (0.2-1.0); CO2 30.1 mmol/L (21.0-32.0); Calcium 8.8 mg/dL (8.5-10.1); Chloride 101 mmol/L (98-107); Estimated GFR 52.95 (mL/min/1.73m2); Glucose 111 mg/dL (74-106); Potassium 4.1 mmol/L (3.5-5.1); Sodium 138 mmol/L (136-145); Total Protein 6.7 g/dL (6.4-8.2)
== END 2020-11-22 14:48 | disposition home or self-care (01) ==
LOC: LBN 14:47
PROVIDERS: PCP Family Medicine; Visit Provider Family Medicine
DX: E87.1 Hypo-osmolality and hyponatremia (principal)
CPT/HCPCS: 80053

== ENCOUNTER 2020-12-08 11:59 | Outpatient (CLI) | payer MEDICARE, SELFPAY ==
--- NOTE | 2020-12-08 13:00 | DI.US_ITS ---
Exam(s) US LOWER EXTREMITY VENOUS RT EXAM: US LOWER EXTREMITY VENOUS RT CLINICAL HISTORY: leg swelling,m79.89 TECHNIQUE: Right lower extremity venous ultrasound performed using grayscale, color-flow, and spectr al Doppler analysis. COMPARISON: No exams were available for comparison FINDINGS: The right common femoral, femoral and popliteal veins demonstrate normal compressibility, augmentatio n, and color Doppler. The posterior tibial veins are patent. The saphenofemoral junction is unremark able. There is no evidence of a Hanks cyst. The soft tissues are unremarkable. IMPRESSION: No DVT. DATA REPOSITORY:
== END 2020-12-08 12:19 ==
PROVIDERS: PCP Family Medicine; Visit Provider Nurse Practitioner Family
DX: M79.89 Other specified soft tissue disorders (principal)
CPT/HCPCS: 93971

== ENCOUNTER 2021-01-24 16:30 | Outpatient (REF) | payer MEDICARE, SELFPAY ==
[2021-01-26 20:34] LABS: COVID-19 RT-PCR UVMMC Result Negative (Negative)
== END 2021-01-24 16:31 | disposition home or self-care (01) ==
LOC: LBN 16:30
PROVIDERS: PCP Family Medicine; Visit Provider Family Medicine
DX: Z20.822 Contact with and (suspected) exposure to COVID-19 (principal); R06.2 Wheezing
CPT/HCPCS: U0003

== ENCOUNTER 2021-01-29 13:26 | Outpatient (CLI) | payer MEDICARE, SELFPAY ==
--- NOTE | 2021-01-29 12:27 | DI.RAD_ITS ---
Exam(s) XR CHEST 2V PA LATERAL EXAM: XR CHEST 2V PA LATERAL CLINICAL HISTORY: shortness of breath,cough,weight loss R05.9. TECHNIQUE: 2D digital imaging was performed. COMPARISON: CR XR CHEST 2V PA LATERAL from 05/05/2020 FINDINGS: Multiple healed right-sided rib fractures again noted. Heart size is normal. The mediastinum is not widened. There are infiltrates in both upper lobes now evident. Also blunting of the right costophrenic angle indicating a right pleural effusion. Left costophrenic angle is clear. No pneumothorax. IMPRESSION: Bilateral upper lobe infiltrates.Right pleural effusion. DATA REPOSITORY: RADIATION DOSE DELIVERED:
== END 2021-01-29 13:46 ==
PROVIDERS: Visit Provider Family Medicine
DX: R06.02 Shortness of breath (principal); R05.8 Other specified cough; R63.4 Abnormal weight loss; R91.8 Other nonspecific abnormal finding of lung field; J90 Pleural effusion, not elsewhere classified
CPT/HCPCS: 71046

== ENCOUNTER 2021-01-29 13:28 | Outpatient (CLI) | payer MEDICARE, SELFPAY ==
[2021-01-29 13:07] LABS: Abs Immature Grans 0.07 10^3/uL (0.0-0.06); Absolute Basophil Count 0.03 10^3/uL (0.0-0.2); Absolute Eosinophil Count 0.03 10^3/uL (0.0-0.7); Absolute Neutrophil Count 12.18 10^3/uL (1.2-6.7); Basophils % 0.2; Eosinophils % 0.2; HCT 34.3 % (36.0-46.0); HGB 11.2 g/dL (11.2-15.7); Immature Grans % 0.5; Lymphocytes % 6.4; MCH 28.7 pg (27.0-33.0); MCHC 32.7 % (32.0-36.0); MCV 87.9 fL (80-95); MPV 10.2 fL (8.0-11.0); Monocytes % 7.7; Nucleated RBC 0 %; Platelet Count 223 10^3/uL (130-400); RDW 12.4 % (11.7-14.6); RDW-SD 39.8 fL; WBC 14.33 10^3/uL (4.4-10.8)
[2021-01-29 13:09] LABS: Absolute Lymphocyte Count 0.92 10^3/uL (1.2-3.4)
[2021-01-29 13:18] LABS: Clarity Sl Cloudy (Clear); Glucose Negative (Negative); Leukocyte Esterase Small (Negative); Nitrite Positive (Negative); Specific Gravity 1.025 (1.005-1.025)
[2021-01-29 13:19] LABS: Bilirubin Negative (Negative); Blood Trace-intact (Negative); Ketones 40 mg/dL (Negative); Urobilinogen 0.2 EU/dL (Up TO 0.2)
[2021-01-29 13:24] LABS: Bacteria Many HPF (Negative); C & S Indicated? Yes; Casts Negative LPF (Negative); Crystals Negative HPF (Negative); Epithelial Cells Few HPF (Negative); Mucus Trace (Negative); WBC 20-50 HPF (0-5)
[2021-01-29 14:21] LABS: ALT 21 U/L (14-59); AST 18 U/L (15-37); Albumin 3.1 g/dL (3.4-5.0); Alkaline Phosphatase 154 U/L (46-116); BUN 16 mg/dL (7-18); Bilirubin, Total 0.6 mg/dL (0.2-1.0); CREATININE 0.8 mg/dL (0.55-1.02); Calcium 8.8 mg/dL (8.5-10.1); Chloride 94 mmol/L (98-107); Glucose 96 mg/dL (74-106); Magnesium 1.9 mg/dL (1.8-2.4); Potassium 4.4 mmol/L (3.5-5.1); Sodium 135 mmol/L (136-145); Total Protein 6.6 g/dL (6.4-8.2)
[2021-01-31 14:31] LABS: COVID-19 RT-PCR UVMMC Result Negative (Negative)
== END 2021-01-29 13:29 | disposition home or self-care (01) ==
LOC: LBO 13:29 → LBN 20:30
PROVIDERS: Visit Provider Family Medicine
DX: E83.42 Hypomagnesemia (principal); R10.9 Unspecified abdominal pain; R06.02 Shortness of breath; R82.998 Other abnormal findings in urine; Z20.822 Contact with and (suspected) exposure to COVID-19
CPT/HCPCS: 80053; 87077; U0003; 81003; 81015; 83735; 85025; 87086; 87186

== ENCOUNTER 2021-02-04 14:13 | Inpatient (IN) | payer MEDICARE, SELFPAY ==
[2021-02-04] VITALS (8 sets, daily range): BP systolic 116–144; BP diastolic 45–63; PULSE 63–80; RESP 16–24; TEMP 36.5–36.9; O2SAT 95–97
--- NOTE | 2021-02-04 14:28 | ED.GENADUL_ITS ---
Discharge Plan Disposition Patient Disposition: [facility] INPATIENT Condition: Stable Discharge Details Clinical Impression: Hyponatremia, Nausea, Fatigue Admit Date/Time: 02/04/21 15:57 Admit Provider: Tremayne Wagoner Attending Provider: Tremayne Wagoner Primary Care Provider: Charla Bobby ED Provider: Sol Dave Discharge Data Discharge Date/Time-TO BE ENTERED AT DEPARTURE: 02/04/21 16:42 Medical Decision Making 85yo female with a history of hypertension, hyperlipidemia, GERD currently on Bactrim and Augmentin for pyelonephritis and pneumonia presents for nausea, dry heaving and fatigue for the past few days. Patient complains of patient currently complains of nausea and upper abdominal pain. Vitals within normal limits. Patient appears comfortable and nontoxic. Moist mucous membranes. Lungs clear. Tender in the epigastric region. Differential diagnosis includes dehydration, electrolyte abnormality, worsening pneumonia, gastroenteritis, resistant uti, etc. we will place an IV, bolus IV fluids, screening labs, urinalysis, CT chest abdomen pelvis and give pepcid, GI cocktail and zofran. Labs reviewed. Normal white blood cell count. Sodium 121. Troponin negative. Lipase normal. Urinalysis negative. CT chest notes: IMPRESSION: Background streaky and reticular opacity with pulmonary nodules, also seen on the prior exam. Superimposed new patchy and nodular opacities, most concentrated at the right lung base and in the left upper lung zone. An acute pulmonary infection is suspected. CT abdomen and pelvis notes: IMPRESSION: 1. No acute bowel pathology demonstrated. 2. Indeterminate left adrenal nodule. Please see comments above. Patient reassessed and her nausea is improved. Will admit for hyponatremia with plan for fluid restriction and recheck of her electrolytes. Review of chart notes that patient has had hyponatremia in the past which has been associated with increased fluid intake. Do not see any obvious medication causes for h yponatremia. She appears comfortable and nontoxic. Case discussed with hospitalist who accepts patient for admission. Medical Records Medical records reviewed: Yes I reviewed the patient's medical records. Imaging Data Radiologic Study: Radiologist's impression: CT Chest With Contrast; Diagnostic Exam date and time: 02/04/2021 3:06 PM Age: 85 years old Clinical indication: Other: SOB, nausea, fatigue, upper abd pain, R/O pneumonia, gastritis, pancreatitis TECHNIQUE: Imaging protocol: Diagnostic computed tomography of the chest with contrast. Radiation optimization: All CT scans at this facility use at least one of these dose optimization techniques: automated exposure control; mA and/or kV adjustment per patient size (includes targeted exams where dose is matched to clinical indication); or iterative reconstruction. Contrast material: 350 OMNIPAQUE; Contrast volume: 100 ml; Contrast route: INTRAVENOUS (IV); COMPARISON: CT CHEST/ABD/PEL W 02/02/2020 11:02 AM FINDINGS: Thyroid: Normal-sized thyroid gland. Lungs: Background streaky and reticular opacity with pulmonary nodules also seen on the comparison exam. Superimposed new patchy and nodular opacities, most concentrated at the right lung base and in the left upper lung zone. Pleural spaces: No pleural effusion or pneumothorax. Heart: Normal-sized heart. Coronary artery calcification. Mediastinal space: Fluid in the upper thoracic esophagus suggesting gastroesophageal reflux. Pulmonary arteries: No pulmonary embolism identified. Aorta: No thoracic aortic aneurysm or dissection. Lymph nodes: Shotty mediastinal and hilar lymph nodes. Calcified mediastinal nodes in keeping with a prior granulomatous infection. Bones/joints: Old rib fractures. No acute fracture seen among the bones of the chest. Spinal degenerative change with large anterior osteophytes at multiple levels. Soft tissues: No gross soft tissue mass or fluid collection seen in the chest wall. IMPRESSION: Background streaky and reticular opacity with pulmonary nodules, also seen on the prior exam. Superimposed new patchy and nodular opacities, most concentrated at the right lung base and in the left upper lung zone. An acute pulmonary infection is suspected. CT Abdomen And Pelvis With Contrast Exam date and time: 02/04/2021 3:06 PM Age: 85 years old Clinical indication: Other: SOB, nausea, fatigue, upper abd pain, R/O pneumonia, gastritis, pancreatitis TECHNIQUE: Imaging protocol: Computed tomography of the abdomen and pelvis with contrast. Radiation optimization: All CT scans at this facility use at least one of these dose optimization techniques: automated exposure control; mA and/or kV adjustment per patient size (includes targeted exams where dose is matched to clinical indication); or iterative reconstruction. Contrast material: 350 OMNIPAQUE; Contrast volume: 100 ml; Contrast route: INTRAVENOUS (IV); COMPARISON: CT CHEST/ABD/PEL W 02/02/2020 11:02 AM FINDINGS: Liver: Normal appearing liver. Gallbladder and bile ducts: Prior cholecystectomy with postop biliary prominence. Pancreas: Pancreas partially obscured by close apposition of adjacent structures but grossly unremarkable, as seen. Spleen: Normal appearing spleen. Adrenal glands: Grossly normal-appearing right adrenal gland, partially obscured. Indeterminate 5 mm left adrenal nodule with a density of 77 Hounsfield units, nonspecific but also seen on the prior exam from February 02, 2020. Correlation with remote prior imaging is recommended to document stability of size. Alternatively MRI with chemical shift imaging could be obtained for definitive evaluation. Kidneys and ureters: Normal appearing kidneys. No hydronephrosis. Stomach and bowel: No oral contrast. Stomach partially decompressed. No small bowel dilatation to suggest obstruction. Diverticulosis through the distal descending and proximal sigmoid colon but no evidence of diverticulitis or colitis. Appendix: Normal retrocecal appendix. Intraperitoneal space: No gross ascites or free air. Vasculature: Normal caliber abdominal aorta. Lymph nodes: No pathologically enlarged mesenteric, retroperitoneal, or pelvic sidewall lymph nodes. Urinary bladder: Normal-appearing urinary bladder, moderately distended. Reproductive: Prior hysterectomy. Ovaries not identified, obscured if present. Correlation with surgical history recommended. Bones/joints: No acute fracture seen among the bones of the abdomen or pelvis. Old pelvic fractures with extensive cervical fixation hardware transfixing the pubic symphysis. Fusion across the left sacroiliac joint. Spinal degenerative change with discogenic degeneration and Schmorl's nodes. Soft tissues: No significant ventral or inguinal hernia. IMPRESSION: 1. No acute bowel pathology demonstrated. 2. Indeterminate left adrenal nodule. Please see comments above. Lab Data Lab results reviewed: Yes I reviewed the patient's lab results. Labs: Laboratory Tests Range/Units 02/04/21 02/04/21 02/04/21 14:30 14:30 14:30 WBC (4.4-10.8) 10^3/uL 7.17 RBC (3.93-5.22) 10^6/uL 3.89 L Hgb (11.2-15.7) g/dL 11.4 Hct (36.0-46.0) % 33.8 L MCV (80-95) fL 86.9 MCH (27.0-33.0) pg 29.3 MCHC (32.0-36.0) % 33.7 RDW (11.7-14.6) % 12.3 Plt Count (130-400) 10^3/uL 301 MPV (8.0-11.0) fL 9.5 Immature Gran % 0.8 Neutrophils % 68.2 Lymphocytes % 22.3 Monocytes % 7.8 Eosinophils % 0.6 Basophils % 0.3 Nucleated RBC % % 0 Absolute Neutrophils (1.2-6.7) 10^3/uL 4.89 Absolute Lymphocytes (1.2-3.4) 10^3/uL 1.60 Absolute Monocytes (0.1-0.8) 10^3/uL 0.56 Absolute Eosinophils (0.0-0.7) 10^3/uL 0.04 Absolute Basophils (0.0-0.2) 10^3/uL 0.02 Sodium (136-145) mmol/L 121 L* Potassium (3.5-5.1) mmol/L 5.0 Chloride (98-107) mmol/L 87 L Carbon Dioxide (21.0-32.0) mmol/L 30.3 Anion Gap (3-11) mmol/L 3.7 BUN (7-18) mg/dL 15 Creatinine (0.55-1.02) mg/dL 1.1 H Estimated GFR/1.73 m2 (mL/min/1.73m2) 47.43 Glucose (74-106) mg/dL 136 H Calcium (8.5-10.1) mg/dL 8.9 Magnesium (1.8-2.4) mg/dL 2.1 Total Bilirubin (0.2-1.0) mg/dL 0.3 AST (15-37) U/L 23 ALT (14-59) U/L 25 Alkaline Phosphatase (46-116) U/L 142 H Troponin I (<0.06) ng/mL < 0.05 Total Protein (6.4-8.2) g/dL 7.4 Albumin (3.4-5.0) g/dL 3.3 L Lipase (73-393) U/L Urine Color (Yellow) Yellow Urine Clarity (Clear) Clear Urine pH (5-8) 6.5 Ur Specific [place] (1.005-1.025) 1.015 Urine Protein (Negative) mg/dL Negative Urine Ketones (Negative) mg/dL Negative Urine Blood (Negative) Negative Urine Nitrite (Negative) Negative Urine Bilirubin (Negative) Negative Urine Urobilinogen (Up TO 0.2) EU/dL 0.2 Ur Leukocyte Esterase (Negative) Negative Urine Glucose (Negative) mg/dL Negative COVID-19 Source Range/Units 02/04/21 02/04/21 14:47 15:10 WBC (4.4-10.8) 10^3/uL RBC (3.93-5.22) 10^6/uL Hgb (11.2-15.7) g/dL Hct (36.0-46.0) % MCV (80-95) fL MCH (27.0-33.0) pg MCHC (32.0-36.0) % RDW (11.7-14.6) % Plt Count (130-400) 10^3/uL MPV (8.0-11.0) fL Immature Gran % Neutrophils % Lymphocytes % Monocytes % Eosinophils % Basophils % Nucleated RBC % % Absolute Neutrophils (1.2-6.7) 10^3/uL Absolute Lymphocytes (1.2-3.4) 10^3/uL Absolute Monocytes (0.1-0.8) 10^3/uL Absolute Eosinophils (0.0-0.7) 10^3/uL Absolute Basophils (0.0-0.2) 10^3/uL Sodium (136-145) mmol/L Potassium (3.5-5.1) mmol/L Chloride (98-107) mmol/L Carbon Dioxide (21.0-32.0) mmol/L Anion Gap (3-11) mmol/L BUN (7-18) mg/dL Creatinine (0.55-1.02) mg/dL Estimated GFR/1.73 m2 (mL/min/1.73m2) Glucose (74-106) mg/dL Calcium (8.5-10.1) mg/dL Magnesium (1.8-2.4) mg/dL Total Bilirubin (0.2-1.0) mg/dL AST (15-37) U/L ALT (14-59) U/L Alkaline Phosphatase (46-116) U/L Troponin I (<0.06) ng/mL Total Protein (6.4-8.2) g/dL Albumin (3.4-5.0) g/dL Lipase (73-393) U/L 142 Urine Color (Yellow) Urine Clarity (Clear) Urine pH (5-8) Ur Specific [place] (1.005-1.025) Urine Protein (Negative) mg/dL Urine Ketones (Negative) mg/dL Urine Blood (Negative) Urine Nitrite (Negative) Urine Bilirubin (Negative) Urine Urobilinogen (Up TO 0.2) EU/dL Ur Leukocyte Esterase (Negative) Urine Glucose (Negative) mg/dL COVID-19 Source Nasal/Nares ECG Data Attestation: I personally reviewed and interpreted this ECG (s) as follows: Interpretation: rate of 62, sinus, no acute ST elevation or depression. NC 177. QRS 84. QTc 414. HPI General Mode of arrival: ambulatory . Date/Time Provider Initiated Documentation: 02/04/21 14:23 . Limitations to Documentation: no limitations . Information obtained by: patient . HPI Narrative: Rechecking her patient is an 85-year-old female with a history of very healthy hypertension, hyperlipidemia, GERD on Bactrim and Augmentin for recently diagnosed pyelonephritis and pneumonia presents for nausea, dry heaving and fatigue for the past few days. Patient was brought in by son who states that patient needs to be admitted for symptoms. She currently is complaining of nausea and upper abdominal pain. She was given a prescription for Zofran for nausea without relief. She was seen several times at the pcp office and express care in the last 11 days for her symptoms and diagnosed with a UTI and likely pyelonephritis based on her systemic symptoms. She had complained of shortness of breath and was diagnosed with pneumonia on outpatient chest x-ray. Related Data Home Medications Medication Instructions Recorded Confirmed polyethylene glycol 3350 17 17 gm PO DAILY PRN #238 gm 06/18/19 02/04/21 gram/dose oral powder vitamins A,C,R-kcqy-cyrqbu 7,160 1 tab PO BID #30 tab 07/08/19 02/04/21 unit-113 mg-100 unit tablet acetaminophen 500 mg tablet 500 mg PO QID PRN #30 tab 07/14/19 02/04/21 aluminum-mag hydroxide-simethicone 15 ml PO Q6H PRN ml 08/03/19 02/04/21 400 mg-400 mg-40 mg/5 mL oral susp inhalational spacing device #1 ea 01/14/20 02/04/21 lorazepam 0.5 mg tablet 0.25 mg PO DAILY PRN #25 tab 02/02/20 02/04/21 omeprazole 40 mg capsule,delayed 40 mg PO DAILY #90 cap 04/19/20 02/04/21 release estradiol 1 g VAGINAL DAILY #42.5 g 04/29/20 02/04/21 hydrocortisone 1 applic TOPICAL BID #20 g 06/11/20 02/04/21 simvastatin 5 mg tablet 5 mg PO QHS #90 tab-cap 07/07/20 02/04/21 metoprolol tartrate 25 mg tablet 12.5 - 25 mg PO BID #135 tab-cap 01/24/21 02/04/21 albuterol sulfate 90 mcg/actuation 1 - 2 inh IH Q6H PRN #8.5 gm 01/25/21 02/04/21 aerosol inhaler amoxicillin 875 mg-potassium 1 tab PO BID #20 tab 01/29/21 02/04/21 clavulanate 125 mg tablet sulfamethoxazole 800 1 tab PO BID #20 tab 01/29/21 02/04/21 mg-trimethoprim 160 mg tablet ondansetron HCl 4 mg tablet 4 mg PO Q8H PRN #21 tab 02/03/21 02/04/21 Previous Rx's Medication Instructions Recorded polyethylene glycol 3350 17 17 gm PO DAILY PRN #238 gm 06/18/19 gram/dose oral powder vitamins A,C,T-vgvu-wamnko 7,160 1 tab PO BID #30 tab 07/08/19 unit-113 mg-100 unit tablet acetaminophen 500 mg tablet 500 mg PO QID PRN #30 tab 07/14/19 inhalational spacing device #1 ea 01/14/20 lorazepam 0.5 mg tablet 0.25 mg PO DAILY PRN #25 tab 02/02/20 omeprazole 40 mg capsule,delayed 40 mg PO DAILY #90 cap 04/19/20 release estradiol 1 g VAGINAL DAILY #42.5 g 04/29/20 hydrocortisone 1 applic TOPICAL BID #20 g 06/11/20 simvastatin 5 mg tablet 5 mg PO QHS #90 tab-cap 07/07/20 metoprolol tartrate 25 mg tablet 12.5 - 25 mg PO BID #135 tab-cap 01/24/21 albuterol sulfate 90 mcg/actuation 1 - 2 inh IH Q6H PRN #8.5 gm 01/25/21 aerosol inhaler amoxicillin 875 mg-potassium 1 tab PO BID #20 tab 01/29/21 clavulanate 125 mg tablet sulfamethoxazole 800 1 tab PO BID #20 tab 01/29/21 mg-trimethoprim 160 mg tablet ondansetron HCl 4 mg tablet 4 mg PO Q8H PRN #21 tab 02/03/21 Allergies Allergy/AdvReac Type Severity Reaction Status Date / Time ciprofloxacin [From Cipro] Allergy Intermediate Lips and Verified 02/04/21 14:29 face burn, feels shaky, arm tingly codeine AdvReac Intermediate Dizziness/L Verified 02/04/21 14:29 ightheade lovastatin AdvReac Intermediate myalgias Verified 02/04/21 14:29 oxycodone AdvReac Intermediate NAUSEA, GI Verified 02/04/21 14:29 UPSET azithromycin AdvReac cramping, Verified 02/04/21 14:29 anorexia doxycycline AdvReac Nausea, Verified 02/04/21 14:29 Vomiting hydrocodone AdvReac unknown Verified 02/04/21 14:29 General Stated Complaint: Nausea/Vomit/Diar MELINDA: 3 Review of Systems All systems reviewed & are unremarkable except as noted in HPI and below Constitutional Constitutional: Reports as per HPI, Denies chills and Denies fever(s) Eyes Eyes: Denies blurry vision ENT Ears, Nose, Mouth, and Throat: Denies dizziness, Denies sore throat and Denies throat swelling Cardiovascular Cardiovascular: Denies chest pain and Denies dyspnea Respiratory Respiratory: Reports cough and Denies dyspnea Gastrointestinal Gastrointestinal: Denies abdominal pain, Denies diarrhea and Denies vomiting Genitourinary Genitourinary: Denies hematuria and Denies dysuria Musculoskeletal Musculoskeletal: Denies back pain and Denies numbness Integumentary/Breasts Skin/Breast: Denies lesions and Denies rash Neurologic Neurologic: Denies dizziness, Denies localized weakness and Denies numbness Allergic/Immunologic Allergic/Immunologic: Denies throat swelling [facility] Active Problem List Hyponatremia (Acute) Nausea (Acute) Fatigue (Acute) Itching (Acute) Rash (Acute) Breast pain, left (Acute) Hyponatremia (Acute) Anemia (Chronic) SIADH (syndrome of inappropriate ADH production) (Acute) Hyponatremia (Acute) Discharge planning issues (Acute) DVT prophylaxis (Acute) Pulmonary nodules (Acute) Sepsis (Acute) Weight loss observed on examination (Acute) GERD with esophagitis (Acute) Loose stools (Acute) 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 states she is unsure Chest pain Depressive disorder Diverticulitis (09/27/13) 07/28 Epigastric pain Essential hypertension (01/14/13) Family history of GI malignancy Family history of GI malignancy Gastroesophageal reflux disease with esophagitis : EGD: metaplasia/no dysplasia EGD : reactive/chemical gastropathy/no H.Pylori/Oesophagus:neg. intestinal meta. or dysplasia History of tobacco use Hx of fracture of pelvis pt. 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 Daughter No problems noted. Brother No problems noted. Maternal Grandfather No problems noted. Paternal Grandfather No problems noted. Maternal Grandmother No problems noted. Paternal Grandfather No problems noted. Social History Smoking/Tobacco Use Status: Former Tobacco Use Quit Date: 03/17/97 Second Hand Exposure: Yes Smoking risk assessment performed?: Yes Alcohol Intake: never Drug use: Never Substance use type: does not use Caregiver/Support person: No Household members: none Housing: house Communication Needs: Hard of Hearing and Corrective Lenses Pets and animals: Yes Pets and animals: dog(s) Sexually active: No Do you think of yourself as: straight/heterosexual Current gender identity: female What is your relationship status?: How often do you talk on the phone with friends or family?: decline to answer How often do you get together with friends or relatives?: decline to answer How often do you attend yazidi or anglican services?: decline to answer Do you belong to any clubs or organized social groups?: decline to answer Panel score (0-1 are the most socially isolated patients): 0 What type of physical activity do you participate in: none Frequency: does not exercise Carri/Moravian: Scientologist Special carri needs: No Seatbelt use: always Helmet use: No Drive intox 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 wagon driver salesperson: No Do you feel safe at home: Yes Do you feel safe in your relationship?: Yes Exam Const General: cooperative, healthy appearing and no acute distress [facility] Head: normal to inspection Ears: hearing grossly normal bilaterally and external ears normal Face and sinus: normal facial exam Mouth: oral mucosae normal Eyes General: appearance normal, both eyes and all related structures Pupils: PERRL EOM: EOM intact bilaterally Neck Neck: normal visual inspection and No submandibular swelling Lymphatic: no lymphadenopathy noted Chest Chest: normal inspection of the chest and no tenderness Resp Effort & Inspection: normal respiratory effort and able to speak in complete sentences Auscultation: clear to auscultation bilaterally Cardio Rate: regular rate Rhythm: regular rhythm GI Inspection: normal to inspection Palpation: soft, not firm, not rigid and nontender Auscultation: normal bowel sounds Skin General skin exam: no rashes or lesions noted Neuro General: patient alert, patient awake and patient oriented x3 Cognition: normal cognition Speech: speech normal Motor: muscle tone normal throughout Sensory Exam: no sensory deficits noted Extrem General: normal to inspection, full ROM, capillary refill normal, no calf tenderness bilaterally and no edema Psych Appearance: grossly normal Mental Status: mental status grossly normal Speech and Movement: speech and movement normal Affect: normal affect Course Vital Signs Vital signs: Oxygen Delivery Method Room Air 02/04/21 14:25 Oxygen Flow Rate 0 02/04/21 14:25
--- NOTE | 2021-02-04 14:30 | RT.EKG_ITS ---
APPROVED REPORT Exam: Resting ECG Reason for Exam: vomiting Patient Location: E HR:62 bpm ECG Measurements Heart Rate 62 AXIS ID 177 P 39 QRSd 84 QRS 46 QT 408 T 35 QTc 414 Conclusion Sinus rhythm...normal P axis, V-rate 60- 99 Left atrial enlargement...P, P'>60mS, <-0.15mV V1. Sinus. No STEMI. I have reviewed and interpreted ECG and agree with software generated interpretation.
[2021-02-04 14:50] LABS: Abs Immature Grans 0.06 10^3/uL (0.0-0.06); Absolute Basophil Count 0.02 10^3/uL (0.0-0.2); Absolute Eosinophil Count 0.04 10^3/uL (0.0-0.7); Absolute Monocyte Count 0.56 10^3/uL (0.1-0.8); Absolute Neutrophil Count 4.89 10^3/uL (1.2-6.7); Basophils % 0.3; Eosinophils % 0.6; HCT 33.8 % (36.0-46.0); HGB 11.4 g/dL (11.2-15.7); Immature Grans % 0.8; Lymphocytes % 22.3; MCH 29.3 pg (27.0-33.0); MCHC 33.7 % (32.0-36.0); MCV 86.9 fL (80-95); MPV 9.5 fL (8.0-11.0); Monocytes % 7.8; Neutrophils % 68.2; Nucleated RBC 0 %; Platelet Count 301 10^3/uL (130-400); RBC 3.89 10^6/uL (3.93-5.22); RDW 12.3 % (11.7-14.6); RDW-SD 39.2 fL; WBC 7.17 10^3/uL (4.4-10.8)
[2021-02-04 14:51] LABS: Bilirubin Negative (Negative); Blood Negative (Negative); Clarity Clear (Clear); Glucose Negative (Negative); Ketones Negative (Negative); Leukocyte Esterase Negative (Negative); Nitrite Negative (Negative); Specific Gravity 1.015 (1.005-1.025); Urobilinogen 0.2 EU/dL (Up TO 0.2); pH 6.5 (5-8)
[2021-02-04] MEDS: Normal Saline 500 ML IV (14:53)
--- NOTE | 2021-02-04 15:00 | DI.CT_ITS ---
Exam(s) CT CHEST/ABD/PEL W EXAM: CT CHEST/ABD/PEL W CLINICAL HISTORY: sob, nausea, fatigue, upper abd pain. TECHNIQUE: Imaging Protocol: Axial computed tomography images with coronal and sagittal reformatted images were created and reviewed CONTRAST MATERIAL: Intravenous: Omnipaque 350 Contrast volume:100 ml Oral: no COMPARISON: CT ABD PELVIS WITH CONTRAST from 05/04/2016 CT ABD PELVIS WITH CONTRAST from 05/04/[address] CHEST/ABD/PEL W from 02/02/2020 FINDINGS: CHEST: Tracheobronchial tree: Patent where visualized. Mediastinum and Soni: No dominant adenopathy or fluid collection. Fluid in the soft a Khanh could indic ate reflux. Pulmonary parenchyma: Bilateral patchy infiltrates, greatest in the left upper lobe and right lower l obe. Mild densities were seen on previous exam. No consolidation or dominant measurable mass. Pleura: No effusion or pneumothorax. Lymph nodes: Within normal limits. Aorta: Thoracic portion non-dilated. Heart: Normal size. Coronary artery and aortic calcifications. Bones: Old rib fractures.. No lytic or blastic lesions. Degenerative disc changes. ABDOMEN: Liver: Normal density. No measurable mass. Gallbladder and biliary tract: Status post cholecystectomy. No radiodense calculus or dilation. Pancreas: Normal density, no abnormal calcifications or inflammatory process. Spleen: Small cysts, otherwise normal. Kidneys: Normal size, contour and axis. No radiodense stones or obstructive uropathy. No masses seen. Adrenal glands: No masses seen. Aorta: Abdominal portion non-dilated. Lymph nodes: Within normal limits. Soft tissues: Unremarkable. PELVIS: Bladder: Obscured by metallic artifact. Symmetric distention, no gross wall thickening. Bowel: No obstruction or bowel wall thickening. Appendix normal. Diverticulosis sigmoid. Moderate q uantity of stool. Degenerative changes in the spine. Peritoneal cavity: No ascites, collection or mesenteric inflammatory response. Bones: Fixation plates lower pelvis. Reproductive organs: Within normal limits. IMPRESSION: Bilateral pulmonary infiltrates superimposed on chronic changes. Fluid in the esophagus could indica te reflux. No hiatal hernia visible. No acute abnormality in the abdomen or pelvis.. RADIATION DOSE DELIVERED: 903.04mGy.cm Total DLP DATA REPOSITORY: All CT scans at this facility are submitted to the National Radiology Data Registry (NRDR) Dose Index Registry (DIR) with the [employer] (ACR). RADIATION OPTIMIZATION: All CT scans at this facility use at least one of these dose optimization te chniques: automated exposure control; mA and/or kV adjustment per patient size (includes targeted exa ms where dose is matched to clinical indication); or iterative reconstruction.
[2021-02-04 15:07] LABS: ALT 25 U/L (14-59); AST 23 U/L (15-37); Albumin 3.3 g/dL (3.4-5.0); Alkaline Phosphatase 142 U/L (46-116); Anion Gap 3.7 mmol/L (3-11); BUN 15 mg/dL (7-18); Bilirubin, Total 0.3 mg/dL (0.2-1.0); CO2 30.3 mmol/L (21.0-32.0); CREATININE 1.1 mg/dL (0.55-1.02); Calcium 8.9 mg/dL (8.5-10.1); Chloride 87 mmol/L (98-107); Estimated GFR 47.43 (mL/min/1.73m2); Glucose 136 mg/dL (74-106); Magnesium 2.1 mg/dL (1.8-2.4); Total Protein 7.4 g/dL (6.4-8.2)
[2021-02-04 15:13] LABS: Troponin I < 0.05 ng/mL (<0.06)
[2021-02-04 15:15] LABS: Sodium 121 mmol/L (136-145)
[2021-02-04] MEDS: Ondansetron 4 MG/2 ML VIAL IVP (15:30)
[2021-02-04 15:34] LABS: Source Nasal/Nares
[2021-02-04 15:42] LABS: Lipase 142 U/L (73-393)
--- NOTE | 2021-02-04 15:49 | NUR.NOTE ---
Addendum entered by Keyanna Lanier 02/04/21 15:51: Daughter was offered to be connected woith phone number to postal supervisor or quality management if she felt like she needed to file a complaint about the experience. Daughter declined. Original Note: Nursing Note: Spoke with pt's daughter Nancy, who expresses great displeasure with COVID regulations of [facility] and [facility] visitor restrictions. Daughter aware that pt is to be admitted and is waiting in parking lot to see if pt would like her to take home any belongings. Pt currently in diagnostic imaging. Will ask pt when she arrives back to ED.
[2021-02-04] MEDS: Normal Saline Flush 10 ML SYR IVP ×2 (15:53→18:39)
[2021-02-04] MEDS: Normal Saline - Diluent 50 ML VIAL IV (15:53)
[2021-02-04] MEDS: Omnipaque 350 MG/ML 100 ML BTL IJ (15:53)
[2021-02-04] MEDS: FAMOTIDINE 20 MG/50 ML BAG 200 MG IVPB (16:00)
--- NOTE | 2021-02-04 16:14 | NUR.NOTE ---
Nursing Note: Daughter Nancy given leather appearing wallet with approx $15 johnson, book of stamps and license/cards for pt per pt request. Additionally, all of pt's medication which was brought in [facility] bag by son was returned to Nancy as well. Nancy given number for [place] and Deepika Dean's name for placing complaint about not being able to visit mother whilst under PUI status. Daughter aware pt will be admitted.
--- NOTE | 2021-02-04 16:22 | DI.VRAD_ITS ---
PROCEDURE INFORMATION: Exam: CT Chest With Contrast; Diagnostic Exam date and time: 02/04/2021 3:06 PM Age: 85 years old Clinical indication: Other: SOB, nausea, fatigue, upper abd pain, R/O pneumonia, gastritis, pancreatitis TECHNIQUE: Imaging protocol: Diagnostic computed tomography of the chest with contrast. Radiation optimization: All CT scans at this facility use at least one of these dose optimization techniques: automated exposure control; mA and/or kV adjustment per patient size (includes targeted exams where dose is matched to clinical indication); or iterative reconstruction. Contrast material: 350 OMNIPAQUE; Contrast volume: 100 ml; Contrast route: INTRAVENOUS (IV); COMPARISON: CT CHEST/ABD/PEL W 02/02/2020 11:02 AM FINDINGS: Thyroid: Normal-sized thyroid gland. Lungs: Background streaky and reticular opacity with pulmonary nodules also seen on the comparison exam. Superimposed new patchy and nodular opacities, most concentrated at the right lung base and in the left upper lung zone. Pleural spaces: No pleural effusion or pneumothorax. Heart: Normal-sized heart. Coronary artery calcification. Mediastinal space: Fluid in the upper thoracic esophagus suggesting gastroesophageal reflux. Pulmonary arteries: No pulmonary embolism identified. Aorta: No thoracic aortic aneurysm or dissection. Lymph nodes: Shotty mediastinal and hilar lymph nodes. Calcified mediastinal nodes in keeping with a prior granulomatous infection. Bones/joints: Old rib fractures. No acute fracture seen among the bones of the chest. Spinal degenerative change with large anterior osteophytes at multiple levels. Soft tissues: No gross soft tissue mass or fluid collection seen in the chest wall. IMPRESSION: Background streaky and reticular opacity with pulmonary nodules, also seen on the prior exam. Superimposed new patchy and nodular opacities, most concentrated at the right lung base and in the left upper lung zone. An acute pulmonary infection is suspected. PROCEDURE INFORMATION: Exam: CT Abdomen And Pelvis With Contrast Exam date and time: 02/04/2021 3:06 PM Age: 85 years old Clinical indication: Other: SOB, nausea, fatigue, upper abd pain, R/O pneumonia, gastritis, pancreatitis TECHNIQUE: Imaging protocol: Computed tomography of the abdomen and pelvis with contrast. Radiation optimization: All CT scans at this facility use at least one of these dose optimization techniques: automated exposure control; mA and/or kV adjustment per patient size (includes targeted exams where dose is matched to clinical indication); or iterative reconstruction. Contrast material: 350 OMNIPAQUE; Contrast volume: 100 ml; Contrast route: INTRAVENOUS (IV); COMPARISON: CT CHEST/ABD/PEL W 02/02/2020 11:02 AM FINDINGS: Liver: Normal appearing liver. Gallbladder and bile ducts: Prior cholecystectomy with postop biliary prominence. Pancreas: Pancreas partially obscured by close apposition of adjacent structures but grossly unremarkable, as seen. Spleen: Normal appearing spleen. Adrenal glands: Grossly normal-appearing right adrenal gland, partially obscured. Indeterminate 5 mm left adrenal nodule with a density of 77 Hounsfield units, nonspecific but also seen on the prior exam from February 02, 2020. Correlation with remote prior imaging is recommended to document stability of size. Alternatively MRI with chemical shift imaging could be obtained for definitive evaluation. Kidneys and ureters: Normal appearing kidneys. No hydronephrosis. Stomach and bowel: No oral contrast. Stomach partially decompressed. No small bowel dilatation to suggest obstruction. Diverticulosis through the distal descending and proximal sigmoid colon but no evidence of diverticulitis or colitis. Appendix: Normal retrocecal appendix. Intraperitoneal space: No gross ascites or free air. Vasculature: Normal caliber abdominal aorta. Lymph nodes: No pathologically enlarged mesenteric, retroperitoneal, or pelvic sidewall lymph nodes. Urinary bladder: Normal-appearing urinary bladder, moderately distended. Reproductive: Prior hysterectomy. Ovaries not identified, obscured if present. Correlation with surgical history recommended. Bones/joints: No acute fracture seen among the bones of the abdomen or pelvis. Old pelvic fractures with extensive cervical fixation hardware transfixing the pubic symphysis. Fusion across the left sacroiliac joint. Spinal degenerative change with discogenic degeneration and Schmorl's nodes. Soft tissues: No significant ventral or inguinal hernia. IMPRESSION: 1. No acute bowel pathology demonstrated. 2. Indeterminate left adrenal nodule. Please see comments above. Dictated and Authenticated by: Shay Garza MD. Ordering:BAILEY Horton MD
[2021-02-04 16:26] LABS: COVID-19 PCR Negative (Negative)
--- NOTE | 2021-02-04 16:40 | NUR.NOTE ---
Nursing Note: Daughter Nancy aware that pt has been resulted as COVID negative and visiting hours were open until 6 pm. Offered to transfer pt to department to clarify visiting protocol,as it changes frequently.
--- NOTE | 2021-02-04 17:39 | HPE_ITS ---
Date of service: 02/04/21 Time of Service: 17:39 Assessment and Plan Assessment and plan (1) Hyponatremia: Start date: 02/04/21 Start time: 18:12 Status: Acute Assessment and plan: Patient presents with NA level of 121. She was told to drink lots of fluids after being diagnosed with UTI. She was on bactrim and augmentin for apparent UTI and Pneumonia. This is likely why she is hyponatremic Fluid restriction of 1200 cc sodium tablets repeat sodium level in 6 hours and in am and monitor. Slowly increase sodium level (2) SIADH (syndrome of inappropriate ADH production): Start date: 02/04/21 Start time: 18:14 Status: Chronic Assessment and plan: Hx of as above. Multiple hospitalizations for this. Patient is being placed on sodium tabs and should probably be discharged home on Education on fluid restriction (3) UTI (urinary tract infection): Start date: 02/04/21 Start time: 18:15 Status: Resolved Assessment and plan: this was prior to admission treated with bactrim in the last week through [facility]. Urinalysis normal. She was pansensitive she was on both augmentin and bactrim though augmentin would have been enough to treat both pneumonia and UTI she was on both. Clinically since being on both and she is showing no signs of pna will hold off on any further antbx Qualifiers: Urinary tract infection type: acute cystitis Hematuria presence: with hematuria Qualified Code(s): N30.01 - Acute cystitis with hematuria (4) Pulmonary nodules: Start date: 02/04/21 Start time: 18:18 Status: Chronic Assessment and plan: On chest CT not a new finding. (5) Pneumonia: Start date: 02/04/21 Start time: 18:18 Status: Acute Assessment and plan: Seen on CT. However as above treated for this prior to hospitalization with more than adequate coverage. Clinically no signs and can take up to 6 weeks to clear from imaging Therefore will not continue any treatment for pna at this time unless patient becomes symptomatic. Qualifiers: Pneumonia type: due to unspecified organism Laterality: bilateral Lung location: unspecified part of lung Qualified Code(s): J18.9 - Pneumonia, unspecified organism (6) DVT prophylaxis: Start date: 02/04/21 Start time: 18:20 Status: Acute Assessment and plan: subcu heparin (7) Discharge planning issues: Start date: 02/04/21 Start time: 18:20 Status: Acute Assessment and plan: Home when medically ready discussed with Dr. davila History of Present Illness History of Present Illness Chief Complaint: Hyponatremia Narrative: 85 yo female who has been admitted to [facility] in the past for Hyponatremia from SIADH. PMH of GERD, presents with weakness. She was seen at [facility] twice in the last 2 weeks. She was initially diagnosed with UTI and placed on bactirim, she was then seen again and placed on augmentin pneumonia. Today labs in ED reveal sodium level of 121, creatinine of 1.1 alk phos of 142. She states she was told to drink a lot of water by [facility] provider, and drank half a gallon of water likely causing her hyponatremia. No leukocytosis. She has been on both ba ctrim and augmentin for days. Afebrile. States cough with sputum that is white. CXR with patchy infiltrates, however considering she just has been on dual antibiotics and not clinically symptomatic will not treat at this time. Monitor for sx and treat if she becomes symptomatic. Will admit to m/s. Fluid restriction. Salt tabs. Repeat sodium in 6 hours. monitor sodium level. Urinalysis is negative. 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 states she is unsure Chest pain Depressive disorder Diverticulitis (09/27/13) 07/28 Epigastric pain Essential hypertension (01/14/13) Family history of GI malignancy Family history of GI malignancy Gastroesophageal reflux disease with esophagitis : EGD: metaplasia/no dysplasia EGD : reactive/chemical gastropathy/no H .Pylori/Oesophagus:neg. intestinal meta. or dysplasia History of tobacco use Hx of fracture of pelvis pt. 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 Daughter No problems noted. Brother No problems noted. Maternal Grandfather No problems noted. Paternal Grandfather No problems noted. Maternal Grandmother No problems noted. Paternal Grandfather No problems noted. Social History Smoking/Tobacco Use Status: Former Tobacco Use Quit Date: 03/17/97 Second Hand Exposure: Yes Smoking risk assessment performed?: Yes Alcohol Intake: never Drug use: Never Substance use type: does not use Caregiver/Support person: No Household members: none Housing: house Communication Needs: Hard of Hearing and Corrective Lenses Pets and animals: Yes Pets and animals: dog(s) Sexually active: No Do you think of yourself as: straight/heterosexual Current gender identity: female What is your relationship status?: How often do you talk on the phone with friends or family?: decline to answer How often do you get together with friends or relatives?: decline to answer How often do you attend yazdanism or religion services?: decline to answer Do you belong to any clubs or organized social groups?: decline to answer Panel score (0-1 are the most socially isolated patients): 0 What type of physical activity do you participate in: none Frequency: does not exercise Carri/Sabianist: [employer]aritan Special carri needs: No Seatbelt use: always Helmet use: No Drive intox 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 car pick up driver: No Do you feel safe at home: Yes Do you feel safe in your relationship?: Yes Meds Allergies and Home Medications Allergies Allergy/AdvReac Type Severity Reaction Status Date / Time ciprofloxacin [From Cipro] Allergy Intermediate Lips and Verified 02/04/21 14:29 face burn, feels shaky, arm tingly codeine AdvReac Intermediate Dizziness/L Verified 02/04/21 14:29 ightheade lovastatin AdvReac Intermediate myalgias Verified 02/04/21 14:29 oxycodone AdvReac Intermediate NAUSEA, GI Verified 02/04/21 14:29 UPSET azithromycin AdvReac cramping, Verified 02/04/21 14:29 anorexia doxycycline AdvReac Nausea, Verified 02/04/21 14:29 Vomiting hydrocodone AdvReac unknown Verified 02/04/21 14:29 Home Medications Medication Instructions Recorded Confirmed Type polyethylene glycol 3350 17 17 gm PO DAILY PRN #238 gm 06/18/19 02/04/21 Rx gram/dose oral powder vitamins A,C,O-yeql-ylgsxb 7,160 1 tab PO BID #30 tab 07/08/19 02/04/21 Rx unit-113 mg-100 unit tablet acetaminophen 500 mg tablet 500 mg PO QID PRN #30 tab 07/14/19 02/04/21 Rx aluminum-mag hydroxide-simethicone 15 ml PO Q6H PRN ml 05/19/20 11/21/21 History 400 mg-400 mg-40 mg/5 mL oral susp inhalational spacing device #1 ea 01/14/20 02/04/21 Rx lorazepam 0.5 mg tablet 0.25 mg PO DAILY PRN #25 tab 02/02/20 02/04/21 Rx omeprazole 40 mg capsule,delayed 40 mg PO DAILY #90 cap 04/19/20 02/04/21 Rx release estradiol 1 g VAGINAL DAILY #42.5 g 04/29/20 02/04/21 Rx hydrocortisone 1 applic TOPICAL BID #20 g 06/11/20 02/04/21 Rx simvastatin 5 mg tablet 5 mg PO QHS #90 tab-cap 07/07/20 02/04/21 Rx metoprolol tartrate 25 mg tablet 12.5 - 25 mg PO BID #135 tab-cap 01/24/21 02/04/21 Rx albuterol sulfate 90 mcg/actuation 1 - 2 inh IH Q6H PRN #8.5 gm 01/25/21 02/04/21 Rx aerosol inhaler amoxicillin 875 mg-potassium 1 tab PO BID #20 tab 01/29/21 02/04/21 Rx clavulanate 125 mg tablet sulfamethoxazole 800 1 tab PO BID #20 tab 01/29/21 02/04/21 Rx mg-trimethoprim 160 mg tablet ondansetron HCl 4 mg tablet 4 mg PO Q8H PRN #21 tab 02/03/21 02/04/21 Rx Exam Const General: cooperative, comfortable and no acute distress Orientation: alert, awake and oriented x3 Eyes Eyelids: eyelids normal Pupils: PERRL EOM: EOM intact bilaterally Neck Neck: normal visual inspection and no JVD Lymphatic: no lymphadenopathy noted Resp Effort & Inspection: normal respiratory effort Auscultation: clear to auscultation bilaterally Cardio Jugular venous pressure: no JVD Rhythm: regular rhythm Heart Sounds: S1 normal GI Auscultation: normal bowel sounds General: No CVA tenderness and deferred Skin General skin exam: no rashes or lesions noted Neuro General: patient alert, patient awake and patient oriented x3 Cognition: normal cognition Speech: speech normal Gait: normal gait Extrem General: normal to inspection, full ROM and no clubbing, cyanosis or edema Results Labs Result diagrams: 02/04/21 14:30 02/04/21 14:30 Labs: Laboratory Results - last 24 hr 02/04/21 02/04/21 02/04/21 14:30 14:30 14:30 WBC 7.17 RBC 3.89 L Hgb 11.4 Hct 33.8 L MCV 86.9 MCH 29.3 MCHC 33.7 RDW 12.3 Plt Count 301 MPV 9.5 Immature Gran % 0.8 Neutrophils % 68.2 Lymphocytes % 22.3 Monocytes % 7.8 Eosinophils % 0.6 Basophils % 0.3 Nucleated RBC % 0 Absolute Neutrophils 4.89 Absolute Lymphocytes 1.60 Absolute Monocytes 0.56 Absolute Eosinophils 0.04 Absolute Basophils 0.02 Sodium 121 L* Potassium 5.0 Chloride 87 L Carbon Dioxide 30.3 Anion Gap 3.7 BUN 15 Creatinine 1.1 H Estimated GFR/1.73 m2 47.43 Glucose 136 H Calcium 8.9 Magnesium 2.1 Total Bilirubin 0.3 AST 23 ALT 25 Alkaline Phosphatase 142 H Troponin I < 0.05 Total Protein 7.4 Albumin 3.3 L Lipase Urine Color Yellow Urine Clarity Clear Urine pH 6.5 Ur Specific [place] 1.015 Urine Protein Negative Urine Ketones Negative Urine Blood Negative Urine Nitrite Negative Urine Bilirubin Negative Urine Urobilinogen 0.2 Ur Leukocyte Esterase Negative Urine Glucose Negative COVID-19 Source SARS-CoV-2 (PCR) 02/04/21 02/04/21 14:47 15:10 WBC RBC Hgb Hct MCV MCH MCHC RDW Plt Count MPV Immature Gran % Neutrophils % Lymphocytes % Monocytes % Eosinophils % Basophils % Nucleated RBC % Absolute Neutrophils Absolute Lymphocytes Absolute Monocytes Absolute Eosinophils Absolute Basophils Sodium Potassium Chloride Carbon Dioxide Anion Gap BUN Creatinine Estimated GFR/1.73 m2 Glucose Calcium Magnesium Total Bilirubin AST ALT Alkaline Phosphatase Troponin I Total Protein Albumin Lipase 142 Urine Color Urine Clarity Urine pH Ur Specific [place] Urine Protein Urine Ketones Urine Blood Urine Nitrite Urine Bilirubin Urine Urobilinogen Ur Leukocyte Esterase Urine Glucose COVID-19 Source Nasal/Nares SARS-CoV-2 (PCR) Negative Last Vital Signs Temp 36.7 C 02/04/21 16:55 Pulse 76 02/04/21 16:55 Resp 16 02/04/21 16:55 BP 116/63 02/04/21 16:55 Pulse Ox 97 02/04/21 16:55
[2021-02-04] MEDS: Salt Supplement (BUFFERED) TAB 1 TAB PO ×2 (18:36→19:16)
[2021-02-04] MEDS: Heparin 5,000 UNITS/ML VIAL 5000 UNITS SC (18:36)
[2021-02-04] MEDS: Cetirizine 10 MG TAB PO (18:36)
[2021-02-04] MEDS: Metoprolol 12.5 MG TAB PO (19:15)
[2021-02-04] MEDS: Refresh PLUS Eye Drops 0.4ml 1 EACH OU (21:05)
[2021-02-04] MEDS: Simvastatin 10 MG TAB 5 MG PO (21:06)
[2021-02-04 22:06] LABS: Sodium 127 mmol/L (136-145)
[2021-02-05 00:06] VITALS: BP 119/63; PULSE 59; RESP 18; TEMP 36.5; O2SAT 93
[2021-02-05] MEDS: Heparin 5,000 UNITS/ML VIAL 5000 UNITS SC ×3 (02:38→18:09)
[2021-02-05 07:21] VITALS: BP 111/61; PULSE 65; RESP 17; TEMP 36.6; O2SAT 96
[2021-02-05 07:49] LABS: Abs Immature Grans 0.06 10^3/uL (0.0-0.06); Absolute Basophil Count 0.02 10^3/uL (0.0-0.2); Absolute Eosinophil Count 0.02 10^3/uL (0.0-0.7); Absolute Lymphocyte Count 1.27 10^3/uL (1.2-3.4); Absolute Monocyte Count 0.66 10^3/uL (0.1-0.8); Absolute Neutrophil Count 6.28 10^3/uL (1.2-6.7); Basophils % 0.2; Eosinophils % 0.2; HCT 36.7 % (36.0-46.0); HGB 11.8 g/dL (11.2-15.7); Immature Grans % 0.7; Lymphocytes % 15.3; MCH 28.4 pg (27.0-33.0); MCHC 32.2 % (32.0-36.0); MCV 88.2 fL (80-95); MPV 9.9 fL (8.0-11.0); Monocytes % 7.9; Neutrophils % 75.7; Nucleated RBC 0 %; Platelet Count 308 10^3/uL (130-400); RBC 4.16 10^6/uL (3.93-5.22); RDW 12.5 % (11.7-14.6); RDW-SD 40.7 fL; WBC 8.31 10^3/uL (4.4-10.8)
[2021-02-05] MEDS: Cetirizine 10 MG TAB PO (07:57)
[2021-02-05] MEDS: Metoprolol 12.5 MG TAB PO ×2 (07:57→19:17)
[2021-02-05] MEDS: Omeprazole 20 MG CAPCR 40 MG PO (07:57)
[2021-02-05 08:04] LABS: ALT 21 U/L (14-59); AST 23 U/L (15-37); Albumin 2.9 g/dL (3.4-5.0); Alkaline Phosphatase 133 U/L (46-116); Anion Gap 3.3 mmol/L (3-11); BUN 16 mg/dL (7-18); Bilirubin, Total 0.2 mg/dL (0.2-1.0); CO2 31.7 mmol/L (21.0-32.0); CREATININE 1.1 mg/dL (0.55-1.02); Calcium 9.1 mg/dL (8.5-10.1); Chloride 94 mmol/L (98-107); Estimated GFR 47.43 (mL/min/1.73m2); Glucose 92 mg/dL (74-106); Magnesium 2.4 mg/dL (1.8-2.4); Potassium 5.7 mmol/L (3.5-5.1); Sodium 129 mmol/L (136-145); Total Protein 6.9 g/dL (6.4-8.2)
--- NOTE | 2021-02-05 09:12 | PGE_ITS ---
Date of Service Date of service: 02/05/21 Time of Service: 09:12 Assessment and Plan Assessment and plan (1) Hyponatremia: Status: Acute Assessment and plan: Patient presents with NA level of 121. She was told to drink lots of fluids after being diagnosed with UTI. She was on bactrim and augmentin for apparent UTI and Pneumonia. This is likely why she is hyponatremic Fluid restriction of 1200 cc sodium tablets repeat sodium level in 6 hours and in am and monitor. Slowly increase sodium level (2) SIADH (syndrome of inappropriate ADH production): Status: Chronic Assessment and plan: Hx of as above. Multiple hospitalizations for this. Patient is being placed on sodium tabs and should probably be discharged home on Education on fluid restriction (3) UTI (urinary tract infection): Status: Resolved Assessment and plan: this was prior to admission treated with bactrim in the last week through [facility]. Urinalysis normal. She was pansensitive she was on both augmentin and bactrim though augmentin would have been enough to treat both pneumonia and UTI she was on both. Clinically since being on both and she is showing no signs of pna will hold off on any further antbx Qualifiers: Hematuria presence: with hematuria Urinary tract infection type: acute cystitis Qualified Code(s): N30.01 - Acute cystitis with hematuria (4) Pulmonary nodules: Status: Chronic Assessment and plan: On chest CT not a new finding. (5) Pneumonia: Status: Acute Assessment and plan: Seen on CT. However as above treated for this prior to hospitalization with more than adequate coverage. Clinically no signs and can take up to 6 weeks to clear from imaging Therefore will not continue any treatment for pna at this time unless patient becomes symptomatic. Qualifiers: Laterality: bilateral Lung location: unspecified part of lung Pneumonia type: due to unspecified organism Qualified Code(s): J18.9 - Pneumonia, unspecified organism (6) DVT prophylaxis: Status: Acute Assessment and plan: subcu heparin (7) Discharge planning issues: Status: Acute Assessment and plan: Home when medically ready discussed with Dr. davila Subjective Subjective Patient reports: no new complaints Interval history since last seen: fluid restriction maintained. Exam Const General: cooperative, comfortable and no acute distress Orientation: alert, awake and oriented x3 Eyes Eyelids: eyelids normal Pupils: PERRL EOM: EOM intact bilaterally Neck Neck: normal visual inspection Resp Effort & Inspection: normal respiratory effort Auscultation: clear to auscultation bilaterally Cardio Rhythm: regular rhythm GI Auscultation: normal bowel sounds Skin General skin exam: no rashes or lesions noted Neuro General: patient alert, patient awake and patient oriented x3 Cognition: normal cognition Speech: speech normal Gait: normal gait Extrem General: normal to inspection, full ROM and no clubbing, cyanosis or edema Objective Last Vital Signs Temp 36.6 C 02/05/21 07:21 Pulse 65 02/05/21 07:21 Resp 17 02/05/21 07:21 BP 111/61 02/05/21 07:21 Pulse Ox 96 02/05/21 07:21 Laboratory Results - last 24 hr 02/04/21 02/04/21 02/04/21 14:30 14:30 14:30 WBC 7.17 RBC 3.89 L Hgb 11.4 Hct 33.8 L MCV 86.9 MCH 29.3 MCHC 33.7 RDW 12.3 Plt Count 301 MPV 9.5 Immature Gran % 0.8 Neutrophils % 68.2 Lymphocytes % 22.3 Monocytes % 7.8 Eosinophils % 0.6 Basophils % 0.3 Nucleated RBC % 0 Absolute Neutrophils 4.89 Absolute Lymphocytes 1.60 Absolute Monocytes 0.56 Absolute Eosinophils 0.04 Absolute Basophils 0.02 Sodium 121 L* Potassium 5.0 Chloride 87 L Carbon Dioxide 30.3 Anion Gap 3.7 BUN 15 Creatinine 1.1 H Estimated GFR/1.73 m2 47.43 Glucose 136 H Calcium 8.9 Magnesium 2.1 Total Bilirubin 0.3 AST 23 ALT 25 Alkaline Phosphatase 142 H Troponin I < 0.05 Total Protein 7.4 Albumin 3.3 L Lipase Urine Color Yellow Urine Clarity Clear Urine pH 6.5 Ur Specific [place] 1.015 Urine Protein Negative Urine Ketones Negative Urine Blood Negative Urine Nitrite Negative Urine Bilirubin Negative Urine Urobilinogen 0.2 Ur Leukocyte Esterase Negative Urine Glucose Negative COVID-19 Source SARS-CoV-2 (PCR) 02/04/21 02/04/21 02/04/21 14:47 15:10 22:00 WBC RBC Hgb Hct MCV MCH MCHC RDW Plt Count MPV Immature Gran % Neutrophils % Lymphocytes % Monocytes % Eosinophils % Basophils % Nucleated RBC % Absolute Neutrophils Absolute Lymphocytes Absolute Monocytes Absolute Eosinophils Absolute Basophils Sodium 127 L Potassium Chloride Carbon Dioxide Anion Gap BUN Creatinine Estimated GFR/1.73 m2 Glucose Calcium Magnesium Total Bilirubin AST ALT Alkaline Phosphatase Troponin I Total Protein Albumin Lipase 142 Urine Color Urine Clarity Urine pH Ur Specific [place] Urine Protein Urine Ketones Urine Blood Urine Nitrite Urine Bilirubin Urine Urobilinogen Ur Leukocyte Esterase Urine Glucose COVID-19 Source Nasal/Nares SARS-CoV-2 (PCR) Negative 02/05/21 02/05/21 06:52 06:52 WBC 8.31 RBC 4.16 Hgb 11.8 Hct 36.7 MCV 88.2 MCH 28.4 MCHC 32.2 RDW 12.5 Plt Count 308 MPV 9.9 Immature Gran % 0.7 Neutrophils % 75.7 Lymphocytes % 15.3 Monocytes % 7.9 Eosinophils % 0.2 Basophils % 0.2 Nucleated RBC % 0 Absolute Neutrophils 6.28 Absolute Lymphocytes 1.27 Absolute Monocytes 0.66 Absolute Eosinophils 0.02 Absolute Basophils 0.02 Sodium 129 L Potassium 5.7 H Chloride 94 L Carbon Dioxide 31.7 Anion Gap 3.3 BUN 16 Creatinine 1.1 H Estimated GFR/1.73 m2 47.43 Glucose 92 Calcium 9.1 Magnesium 2.4 Total Bilirubin 0.2 AST 23 ALT 21 Alkaline Phosphatase 133 H Troponin I Total Protein 6.9 Albumin 2.9 L Lipase Urine Color Urine Clarity Urine pH Ur Specific [place] Urine Protein Urine Ketones Urine Blood Urine Nitrite Urine Bilirubin Urine Urobilinogen Ur Leukocyte Esterase Urine Glucose COVID-19 Source SARS-CoV-2 (PCR)
[2021-02-05] MEDS: Sodium Zirconium Cyclosilicate 10 GM PKT PO ×3 (09:49→21:30)
[2021-02-05] MEDS: Salt Supplement (BUFFERED) TAB 1 TAB PO ×2 (09:49→19:18)
--- NOTE | 2021-02-05 10:01 | PDOC.CMIN ---
- If Service Date Differs Date of service: 02/05/21 Time of Service: 10:01 Care Management Initial Assess REASON FOR HOSPITALIZATION:: hyponatremia PAST MEDICAL HISTORY/PAST SURGICAL HISTORY:: Active Problem List . Hyponatremia (Acute). Nausea (Acute). Fatigue (Acute). Itching (Acute). Rash (Acute). Breast pain, left (Acute). Hyponatremia (Acute). Anemia (Chronic). SIADH (syndrome of inappropriate ADH production) (Acute). Hyponatremia (Acute). Discharge planning issues (Acute). DVT prophylaxis (Acute). Pulmonary nodules (Acute). Sepsis (Acute). Weight loss observed on examination (Acute). GERD with esophagitis (Acute). Loose stools (Acute). 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 Erosive gastritis (Acute). DNI (do not intubate) (Acute). DNR (do not resuscitate) (Acute). POLST (Physician Orders for Life-Sustaining Treatment) (Acute). Medical History . Abnormal [place]. [place]; rib fracture; lacerated liver; fx-pelvis; perf. intestine. Atrophic vaginitis (08/19/11). Pt. states she is unsure. Chest pain. Depressive disorder. Diverticulitis (09/27/13). 07/28. Epigastric pain. Essential hypertension (01/14/13). Family history of GI malignancy. Family history of GI malignancy. Gastroesophageal reflux disease with esophagitis. : EGD: metaplasia/no dysplasia. EGD : reactive/chemical gastropathy/no H.Pylori/Oesophagus:neg. intestinal meta. or dysplasia. History of tobacco use. Hx of fracture of pelvis. pt. states she shattered her pelvis in 1970's. Hyperlipidemia. 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 06/20/1553-XCSD-MMYIR OF BULKING AGENT. Macular degeneration. Mixed incontinence (08/19/11). [facility] [place] : pessary. Tubular adenoma. [place]\.: tubular adenoma ascending colon and in splenic flexure. 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 Surgical History . Abdominal hysterectomy. Arthroplasty of knee (05/27/12). LEFT - Pt denies knee replacement. Bilateral salpingectomy with oophorectomy. Bladder Surgery. Cholecystectomy. Colonoscopy - MAC (~02/2012). Colonoscopy - MAC (04/22/17). EGD - MAC (04/22/17). KNEE SURGERY (~05/2012) PREVIOUS FUNCTIONAL STATUS/SOCIAL/FAMILY SUPPORTS:: Cathy lives with her son in his single family home in [place] [facility]. She also has her own home nearby but has been staying with him due to illness. Cathy has 4 other children, all daughters, who live in the area and who are helpful when needed. Cathy stated that she is independent with ADLs but does receive [employer] and fuel assistance. CURRENT FUNCTIONAL STATUS:: Cathy was sitting up in a chair when CM met with her. She was polite but not very talkative. 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 Cathy had questions about some of the community services she receives and requested assistance with contacting [employer], which CM provided. ADVANCE DIRECTIVES:: COLST on file Has patient been provided with info about the portal/API?: Yes Did the patient sign up for the portal?: No CODE STATUS:: DNR/DNI INSURANCE COVERAGE / FINANCIAL ISSUES:: Medicare. [place] CURRENT HOME/COMMUNITY SERVICES/EQUIPMENT:: Cathy receives fuel assistance and [employer] PRIMARY CARE PHYSICIAN:: Charla Bobby POTENTIAL DISCHARGE NEEDS:: follow up with PCP and plan of care PATIENT/FAMILY EDUCATION NEEDS:: Review discharge instructions regarding activity levels and medications, discussion of self care needs including ask me three and goals of care. TRANSPORTATION:: via private vehicle with family/friends PLAN:: Anticipate Cathy will return home with no additional services when medically cleared. She will follow up with her community providers and plan of care and transport with family. CM will continue to support Cathy and her discharge planning needs.
--- NOTE | 2021-02-05 10:14 | IN_ITS ---
Date of service: 02/05/21 Time of Service: 10:14 PT Notes Visit Reasons: Hyponatremia Physical Therapy Inpatient Initial Evaluation Date: 02/05/2021 Referring Doctor: Anu Thompson NP PT Orders: PT CONSULT: Eval/treat Precautions: Standard. Activity as tolerated. On 1200 cc fluid c restriction. Patient Profile/Admitting Diagnosis: Cathy is an 85-year-old female who presented to the ED 02/04/2021 due to nausea, dry heaving, upper abdominal pain, and fatigue who is currently on antibiotics pyelonephritis and pneumonia. Patient is diagnosed with hyponatremia, SIADH, UTI, and pneumonia. 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 states she is unsure Chest pain Depressive disorder Diverticulitis (09/27/13) 07/28 Epigastric pain Essential hypertension (01/14/13) Family history of GI malignancy Family history of GI malignancy Gastroesophageal reflux disease with esophagitis : EGD: metaplasia/no dysplasia EGD : reactive/chemical gastropathy/no H.Pylori/Oesophagus:neg. intestinal meta. or dysplasia History of tobacco use Hx of fracture of pelvis pt. 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 Independent with all mobility ADL performance without any assistive device. No longer drives. No falls at home in the past year. Equipment Owned/DME: [facility] Subjective: Patient states that she has a front wheeled walker somewhere at home she has not used it for a long time. States that she does not need help with anything at home. Reports that son is at home at all times as he does not work anymore. Denies pain, headache, abdominal ache, and dizziness throughout session. Objective: General Observation: Seated on chair. IV access in R UE. No lines. Mental Status: Alert and oriented as to person, place, time, and purpose. Able to pay attention, focus, and respond appropriately. Pain: 0/10 ROM: Right Upper Extremity: Shoulder Flexion WFL. Shoulder abduction WFL. Elbow flexion WFL. Wrist flexion WFL. Functional opening and closing of hand WFL. Left Upper Extremity: Shoulder Flexion WFL. Shoulder abduction WFL. Elbow flexion WFL. Wrist flexion WFL. Functional opening and closing of hand WFL. Right Lower Extremity: Hip flexion WFL. Hip abduction WFL. Knee flexion WFL. Ankle dorsiflexion WFL. Ankle plantarflexion WFL. Left Lower Extremity: Hip flexion WFL. Hip abduction WFL. Knee flexion WFL. Ankle dorsiflexion WFL. Ankle plantarflexion WFL. Strength: Right Upper Extremity: Shoulder flexors 4/5. Shoulder abductors 4/5. Elbow flex ors 5/5. Elbow extensors 5/5. Washcoat Wiper strong. Left Upper Extremity: Shoulder flexors 4/5. Shoulder abductors 4/5. Elbow flexors 5/5. Elbow extensors 5/5. Washcoat Wiper strong. Right Lower Extremity: Hip flexors 4/5. Hip abductors 5/5. Knee flexors 5/5. Knee extensors 4/5. Ankle dorsiflexors 4/5. Ankle plantarflexors 4/5. Left Lower Extremity: Hip flexors 4/5. Hip abductors 5/5. Knee flexors 5/5. Knee extensors 4/5. Ankle dorsiflexors 4/5. Ankle plantarflexors 4/5. Bed Mobility/Transfers: Rolling independent Supine to sit independent Sit to supine independent Sit to stand independent Stand to sit independent Bed to reclining chair independent Reclining chair to bed independent Gait: Instructed patient with level surface ambulation of 250 feet +100 feet +100 feet requiring supervision. Gait pattern unremarkable. Did demonstrate mild path deviation during directional change x2 but no LOB. Balance: Static Sitting: Normal Dynamic Sitting: Normal Static Standing: Good Dynamic Standing: Fair 4-Stage Balance Test: Able to maintain feet together, semitandem, full tandem, and left 1 legged stance for 10 seconds but is unable to do so with the right 1 legged stance. Special Tests: Mobility Limitations Standardized Measure [facility] AM-PAC 6 clicks Basic Mobility Inpatient Short Form: Raw Score: 24 CMS Score: 0% deficit Informed Consent/Education: Patient was instructed in purpose of PT consult and plan of care. Agreeable to proceed with established PT POC to achieve personal goals. Assessment: Patient made independent inside her room without an assistive device but will require supervision assist for home ambulation for safety. Minimal fatigue limited safety of stair negotiation this morning causing some minimal instability but no LOB. Patient presents with clinical signs and symptoms consistent with current/admitting diagnoses that have resulted to mobility limitations, gait instability, generalized weakness, and overall ADL decline as demonstrated by the following impairment level findings: 1. Impaired standing balance 2. Impaired activity tolerance 3. Shortness of breath Impairments are contributing to the following functional limitations: 1. Requires assistance with community ambulation at this time due to limitations placed by fatigue and shortness of breath Patient is assessed as a 49201 low complexity based on the following: History: 85-year-old female with past medical history as indicated above Examination: Demonstrable impairment in strength, balance, and mobility level with underlying impairments and functional limitations as exhibited above as well as deficit score of 24% utilizing the [facility] Mobility Inpatient Short Form Presentation: Stable Decision Makin low complexity Goals: Goals X 1 week 1. Independent gait on level surface with use of no assistive device for at least 500 feet without report of pain nor dyspnea 2. Independent stair negotiation while holding onto no rails for at least 3 steps without report of pain nor dyspnea 3. Independent with home exercise program 4. Good static and dynamic standing balance/tolerance Plan of Care/Treatment Plan: 1-2x/day, 7 days/week x 1 week. Plan of care has been reviewed with the [employer] providing the service under Physical Therapy direction. Initiate Physical Therapy intervention for pain management as needed, strengthening, bed mobility, transfers, gait, stairs, balance training, and use of assistive device. DISCHARGE RECOMMENDATIONS: [X] Home with no services. Home when medically cleared by hospitalist. No equipment needs at this time. [] Home with services [specify] [] Home with outpatient PT [] [] SNF for continued rehabilitation [] [] [facility] [] [] SNF versus LTC based on ability to participate and progress [] TREATMENT CODE/TIME: 32159 x 15 minutes, 93947 x 25 minutes beginning at 10:14 AM. Thank you for the opportunity to participate in the care of this patient. Alyx Reyes PT, DPT, CLT [facility] [place], [place]
--- NOTE | 2021-02-05 13:41 | PHA.REVIEW ---
Pharmacy Admission Review - Admission Clinical Review (Last Reviewed 02/04/21 @ 18:11 by Anu Thompson NP) Hyponatremia (Acute) Nausea (Acute) Fatigue (Acute) Discharge planning issues (Acute) DVT prophylaxis (Acute) Pneumonia (Acute) ciprofloxacin [From Cipro] Allergy (Intermediate, Verified 02/04/21 14:29) Lips and face burn, feels shaky, arm tingly codeine Adverse Reaction (Intermediate, Verified 02/04/21 14:29) Dizziness/Lightheade lovastatin Adverse Reaction (Intermediate, Verified 02/04/21 14:29) myalgias oxycodone Adverse Reaction (Intermediate, Verified 02/04/21 14:29) NAUSEA, GI UPSET azithromycin Adverse Reaction (Verified 02/04/21 14:29) cramping, anorexia doxycycline Adverse Reaction (Verified 02/04/21 14:29) Nausea, Vomiting hydrocodone Adverse Reaction (Verified 02/04/21 14:29) unknown Resuscitation Status DNR/DNI Height 5 ft 1.81 in Weight 55.2 kg - Renal Dosing Renal Dosing: BUN 16 mg/dL (7-18) 02/05/21 06:52 Creatinine 1.1 mg/dL (0.55-1.02) H 02/05/21 06:52 Medications needing adjustments: N/A (Scr: 1.1, CrCl: ~29.24mL/min, all medications dosed appropriately.) - Anticoagulation Anticoagulation: Hgb 11.8 g/dL (11.2-15.7) 02/05/21 06:52 Hct 36.7 % (36.0-46.0) 02/05/21 06:52 Plt Count 308 10^3/uL (130-400) 02/05/21 06:52 Creatinine 1.1 mg/dL (0.55-1.02) H 02/05/21 06:52 DVT Prophylaxis: Reviewed Medications: Heparin (Heparin 5000 units SC Q8H) Therapeutic Anticoagulation: N/A - Opiate Usage Evaluate Pain Scale/Pains Meds: N/A (No opiates ordered, PRN Acetaminophen.) Scheduled Bowel Reg ordered if on Opiates?: No (PRN Docusate ordered) - Relevant Labs Sodium 129 mmol/L (136-145) L 02/05/21 06:52 Potassium 5.7 mmol/L (3.5-5.1) H 02/05/21 06:52 Chloride 94 mmol/L (98-107) L 02/05/21 06:52 Magnesium 2.4 mg/dL (1.8-2.4) 02/05/21 06:52 Electrolytes, C-Reactive P, ESR: Reviewed (Lokelma ordered for hyperkalemia (5.7), Salt Supplement ordered for hyponatremia (129).) - DM Control DM Control: Glucose 92 mg/dL (74-106) 02/05/21 06:52 Insulin Dosing: N/A - Heart Failure/SC Heart Failure/SC: Troponin I < 0.05 ng/mL (<0.06) 02/04/21 14:30 EF%, JASPAL's, B-Blockers, Diuretics: Reviewed (Metoprolol 12.5mg BID) - BP Control BP Control: Blood Pressure 111/61 If elevated: N/A - Qtc Review If Elevated: N/A (QTc 414 on admission) - IV to PO Switch IV Medications: N/A - Home Meds Home Med List reviewed: Reviewed (All home meds currently ordered.) - Current meds Current Medication Order Review: Intervened (DI medications discontinued. Polyethylene glycol changed from bottle to packets.) - Comments Comments/Follow Ups: Watch blood pressure, sodium, potassium, labs and for medication changes.
--- NOTE | 2021-02-05 14:18 | W.NUTRFU ---
Date of service: 02/05/21 Time of Service: 14:18 Nutrition Note NOTE: Ms. Franklni has excellent PO intake on a regular diet with 1200 cc fluid restriction due to hyponatremia. Looking back at weights historically, her weight is entirely stable. BMI is 22.4 kg/m2 which is WNL but on the low end of normal for her age. No nutritional issues noted at this time. Will continue to follow progress. Time Spent in Nutritional Counseling and Treatment: 0
--- NOTE | 2021-02-05 15:19 | PT.INTREAT ---
Date of service: 02/05/21 Time of Service: 14:30 PT Notes Visit Reasons: Hyponatremia Inpatient Physical Therapy Treatment Note [facility] Date: 02/05/2021 PRECAUTIONS: Activity as tolerated SUBJECTIVE: Cathy is pleasant and agreeable to participating in PT. She states that she gets bored here so she's been asking to go for walks with nursing. OBJECTIVE: PAIN: No c/o pain BED MOBILITY/TRANSFERS Sit-stand: I Stand-sit: I GAIT Assistive Device: No AD Weight bearing: Full Assist: S Distance: 400' ASSESSMENT: Patient tolerated session well without complaint. She continues to demonstrate independence with transfers and short-distance ambulation. PLAN: Continue with gait training for improved activity tolerance. TREATMENT CODE/TIME: 8 minutes; 55130 (14:30)
[2021-02-05 15:39] VITALS: BP 116/67; PULSE 66; RESP 21; TEMP 37.2; O2SAT 97
[2021-02-05] MEDS: Refresh PLUS Eye Drops 0.4ml 1 EACH OU ×2 (19:17→21:31)
[2021-02-05] MEDS: Simvastatin 10 MG TAB 5 MG PO (21:30)
[2021-02-05 23:41] VITALS: BP 102/62; PULSE 66; RESP 18; TEMP 36.3; O2SAT 95
[2021-02-06] MEDS: Heparin 5,000 UNITS/ML VIAL 5000 UNITS SC (02:34)
[2021-02-06] MEDS: Acetaminophen 325 MG TAB PO (05:04)
[2021-02-06 06:27] LABS: Abs Immature Grans 0.05 10^3/uL (0.0-0.06); Absolute Basophil Count 0.02 10^3/uL (0.0-0.2); Absolute Eosinophil Count 0.05 10^3/uL (0.0-0.7); Absolute Lymphocyte Count 1.23 10^3/uL (1.2-3.4); Absolute Monocyte Count 0.48 10^3/uL (0.1-0.8); Absolute Neutrophil Count 3.45 10^3/uL (1.2-6.7); Basophils % 0.4; Eosinophils % 0.9; HCT 35.3 % (36.0-46.0); HGB 11.4 g/dL (11.2-15.7); Immature Grans % 0.9; Lymphocytes % 23.3; MCH 28.6 pg (27.0-33.0); MCHC 32.3 % (32.0-36.0); MCV 88.5 fL (80-95); MPV 9.7 fL (8.0-11.0); Monocytes % 9.1; Neutrophils % 65.4; Nucleated RBC 0 %; Platelet Count 279 10^3/uL (130-400); RBC 3.99 10^6/uL (3.93-5.22); RDW 12.5 % (11.7-14.6); RDW-SD 40.6 fL; WBC 5.28 10^3/uL (4.4-10.8)
[2021-02-06 06:36] LABS: Anion Gap 1.3 mmol/L (3-11); BUN 22 mg/dL (7-18); CO2 33.7 mmol/L (21.0-32.0); CREATININE 1.2 mg/dL (0.55-1.02); Calcium 8.8 mg/dL (8.5-10.1); Chloride 95 mmol/L (98-107); Glucose 110 mg/dL (74-106); Sodium 130 mmol/L (136-145)
[2021-02-06 07:14] VITALS: BP 153/71; PULSE 65; RESP 17; TEMP 36.4; O2SAT 97
[2021-02-06] MEDS: Omeprazole 20 MG CAPCR 40 MG PO (07:49)
[2021-02-06] MEDS: Cetirizine 10 MG TAB PO (07:49)
[2021-02-06] MEDS: Salt Supplement (BUFFERED) TAB 1 TAB PO (07:49)
[2021-02-06] MEDS: Metoprolol 12.5 MG TAB PO (07:49)
--- NOTE | 2021-02-06 08:30 | PDOC.CMPRO ---
- If Service Date Differs Date of service: 02/06/21 Time of Service: 08:30 Care Management Progress Note S/O: A: Cathy is an 85 year old woman admitted with hyponatremia on 02/04/21 P:Anticipate Cathy will return home with no additional services when medically cleared. She will follow up with her community providers and plan of care and transport with family. CM will continue to support Cathy and her discharge planning needs. cc:
--- NOTE | 2021-02-06 09:09 | W.PM.DS.N ---
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 Her workup in the ED did show hyponatremia with a sodium of 121. She was reportedly taking in over a gallon of free water daily as instructed to push fluids for recent UTI. She has had a history of hyponatremia associated with increased water intake. she was admitted to hospitalist services for further management and monitoring. she was placed on a fluid restriction and given salt tabs with resolution of her hyponatremia. She was much improved and feeling at her baseline Her respiratory status has remained stable, no oxygen requirements, no cough or shortness of breath. She has had no further abdominal pain or nausea. She is safe for discharge to home, no new prescriptions. she should have her lab rechecked next week and will f/u with pcp. she is discharged to home with no services. discharge discussed with DR Wagoner. Home Meds and New Rx's Prescriptions: Continued polyethylene glycol 3350 [Miralax] 17 gram/dose powder 17 gm PO DAILY PRN (Reason: constipation) Qty: 238 RF: 2 Hold Instructions: Home Medication placed on hold at Doctor's office PreserVision AREDS [id number] tablet 1 tab PO BID Qty: 30 RF: 0 alum-mag hydroxide-simeth [Mylanta Maximum Strength] 400-400-40 mg/5 mL suspension 15 ml PO Q6H PRN (Reason: indigestion) RF: 0 ondansetron HCl [Zofran] 4 mg tablet 4 mg PO Q8H PRN (Reason: nausea and vomiting) Qty: 21 RF: 0 estradiol 0.01 % (0.1 mg/gram) cream 1 g vaginal DAILY Qty: 42.5 RF: 2 simvastatin 5 mg tablet 5 mg PO QHS Qty: 90 RF: 3 albuterol sulfate 90 mcg/actuation HFA aerosol inhaler 1 - 2 inh IH Q6H PRN (Reason: shortness of breath or wheezing) Qty: 8.5 RF: 6 hydrocortisone 2.5 % ointment 1 applic topical BID Qty: 20 RF: 0 No Action metoprolol tartrate 25 mg tablet 25 mg PO BID Qty: 180 RF: 3 omeprazole 40 mg capsule,delayed release(DR/EC) 40 mg PO DAILY Qty: 90 RF: 2 Discharge Instructions Instructions: Hyponatremia (DC) Stand Alone Forms: Nursing Discharge Form Referrals: Charla Bobby NP [Primary Care Provider] - 02/20/21 11:20 am Activity:: Activity as Tolerated Equipment/Supplies:: No Equipment Needed Diet:: As Tolerated Discharge Orders Discharge Orders: Discharge Order (Routine); Ordered 02/06/21 Ordered By: Melva Hastings Other Ambulatory Orders: Basic Metabolic Panel (Routine) Timeframe: [id number] Location: None Selected Ordered By: Melva Hastings Discharge Data Discharge Date/Time-TO BE ENTERED AT DEPARTURE: 02/06/21 10:40 DS: Summary Time Spent with Patient providing and/or coordinating discharge services: Greater than 30 minutes Status at Discharge Functional status at discharge: independent ambulation Overall status at discharge: patient is back to baseline Mental Status: mental status grossly normal Speech and Movement: speech and movement normal Mood: congruent mood Affect: normal affect Exam Const General: cooperative, comfortable and no acute distress Orientation: alert, awake and oriented x3 Eyes Eyelids: eyelids normal Pupils: PERRL EOM: EOM intact bilaterally Neck Neck: normal visual inspection Resp Effort & Inspection: normal respiratory effort Auscultation: clear to auscultation bilaterally Cardio Rhythm: regular rhythm GI Auscultation: normal bowel sounds Skin General skin exam: no rashes or lesions noted Neuro General: patient alert, patient awake and patient oriented x3 Cognition: normal cognition Speech: speech normal Gait: normal gait Extrem General: normal to inspection, full ROM and no clubbing, cyanosis or edema Psych Mental Status: mental status grossly normal Speech and Movement: speech and movement normal Mood: congruent mood Affect: normal affect DS: Data Vitals/I&O Vitals and I&O: Vital Signs Temperature 36.4 C L 02/06/21 07:14 Temperature Source Tympanic 02/06/21 07:14 Pulse 65 02/06/21 07:14 Pulse Rhythm Regular 02/06/21 08:47 Pulse 64 02/04/21 16:15 Respiratory Rate 17 02/06/21 07:14 Respiratory Effort Non-Labored 02/06/21 08:47 Respiratory Depth Normal 02/06/21 08:47 Respiratory Pattern Normal 02/06/21 08:47 Blood Pressure 153/71 H 02/06/21 07:14 Blood Pressure Mean 65 02/04/21 16:15 Blood Pressure Position Supine 02/04/21 14:25 Pulse Oximetry 97 02/06/21 07:14 Oxygen Delivery Method Room Air 02/06/21 07:14 Oxygen Flow Rate 0 02/06/21 07:14 Pain Level 0 02/06/21 07:14 Intake & Output 02/05/21 02/05/21 02/06/21 11:59 23:59 11:59 Intake Total 500 / 980 480 / 980 Output Total 600 / 800 200 / 800 Balance -100 / 180 280 / 180 Intake: Oral 500 / 980 480 / 980 Output: Urine 600 / 800 200 / 800 Other: Urine Color Yellow Yellow Urine Appearance Clear Clear Clear Urine Odor Normal Normal Comment Up to toilet independenlty to void. Stool Size Moderate Stool Characteristics Formed Brown Voiding Methods Toilet Toilet Data Completed and Pending Labs on day of discharge: Labs from last 24 hours 02/06/21 02/06/21 06:01 06:01 WBC 5.28 D RBC 3.99 Hgb 11.4 Hct 35.3 L MCV 88.5 MCH 28.6 MCHC 32.3 RDW 12.5 Plt Count 279 MPV 9.7 Immature Gran % 0.9 Neutrophils % 65.4 Lymphocytes % 23.3 Monocytes % 9.1 Eosinophils % 0.9 Basophils % 0.4 Nucleated RBC % 0 Absolute Neutrophils 3.45 Absolute Lymphocytes 1.23 Absolute Monocytes 0.48 Absolute Eosinophils 0.05 Absolute Basophils 0.02 Sodium 130 L Potassium 5.0 Chloride 95 L Carbon Dioxide 33.7 H Anion Gap 1.3 L BUN 22 H D Creatinine 1.2 H Estimated GFR/1.73 m2 42.90 Glucose 110 H Calcium 8.8 PFSH Active Problem List Hyponatremia (Acute) Nausea (Acute) Fatigue (Acute) Itching (Acute) Rash (Acute) Breast pain, left (Acute) Hyponatremia (Acute) Anemia (Chronic) SIADH (syndrome of inappropriate ADH production) (Acute) Hyponatremia (Acute) Discharge planning issues (Acute) DVT prophylaxis (Acute) Pulmonary nodules (Acute) Sepsis (Acute) Weight loss observed on examination (Acute) GERD with esophagitis (Acute) Loose stools (Acute) 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 states she is unsure Chest pain Depressive disorder Diverticulitis (09/27/13) 07/28 Epigastric pain Essential hypertension (01/14/13) Family history of GI malignancy Family history of GI malignancy Gastroesophageal reflux disease with esophagitis : EGD: metaplasia/no dysplasia EGD : reactive/chemical gastropathy/no H.Pylori/Oesophagus:neg. intestinal meta. or dysplasia History of tobacco use Hx of fracture of pelvis pt. 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 Daughter No problems noted. Brother No problems noted. Maternal Grandfather No problems noted. Paternal Grandfather No problems noted. Maternal Grandmother No problems noted. Paternal Grandfather No problems noted. Social History Smoking/Tobacco Use Status: Former Tobacco Use Quit Date: 03/17/97 Second Hand Exposure: Yes Smoking risk assessment performed?: Yes Alcohol Intake: never Drug use: Never Substance use type: does not use Caregiver/Support person: No Household members: none Housing: house Communication Needs: Hard of Hearing and Corrective Lenses Pets and animals: Yes Pets and animals: dog(s) Sexually active: No Do you think of yourself as: straight/heterosexual Current gender identity: female What is your relationship status?: How often do you talk on the phone with friends or family?: decline to answer How often do you get together with friends or relatives?: decline to answer How often do you attend christianity or orthodox services?: decline to answer Do you belong to any clubs or organized social groups?: decline to answer Panel score (0-1 are the most socially isolated patients): 0 What type of physical activity do you participate in: none Frequency: does not exercise Carri/Holiness: Voodoo Special carri needs: No Seatbelt use: always Helmet use: No Drive intox 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 driver education instructor: No Do you feel safe at home: Yes Do you feel safe in your relationship?: Yes
--- NOTE | 2021-02-06 11:54 | PDOC.CMDIS ---
- If Service Date Differs Date of service: 02/06/21 Time of Service: 11:54 LACE Index Scoring Tool - Questions: Length of Stay (in days): 2 Acuity (Admit via E.D.?): Yes E.D. Visits: 2 - Answers: Total Score: 7 Risk of Readmission: Low Risk Care Management Discharge Reason for Hospitalization: hyponatremia Discharge Plan: Cathy will return home with no additional services. She will follow up with her community providers and plan of care and transport with family. Patient/Family Education Needs: Review discharge instructions regarding activity levels and medications, discussion of self care needs including ask me three and goals of care.
--- NOTE | 2021-02-06 17:30 | PT.INDS ---
Date of service: 02/06/21 Time of Service: 08:33 PT Notes Visit Reasons: Hyponatremia Physical Therapy Inpatient Discharge Summary Date: 02/06/2021 Dates of Service: 02/05/2021 through 02/06/2021 This is a clinical summary of care provided for the duration of dates listed above. No charge was made in the completion of this documentation. Referring Doctor: Anu Thompson NP PT Orders: PT CONSULT: Eval/treat Precautions: Standard. Activity as tolerated. On 1200 cc fluid c restriction. Patient Profile/Admitting Diagnosis: Cathy is an 85-year-old female who presented to the ED 02/04/2021 due to nausea, dry heaving, upper abdominal pain, and fatigue who is currently on antibiotics pyelonephritis and pneumonia. Patient is diagnosed with hyponatremia, SIADH, UTI, and pneumonia. 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 states she is unsure Chest pain Depressive disorder Diverticulitis (09/27/13) 07/28 Epigastric pain Essential hypertension (01/14/13) Family history of GI malignancy Family history of GI malignancy Gastroesophageal reflux disease with esophagitis : EGD: metaplasia/no dysplasia EGD : reactive/chemical gastropathy/no H.Pylori/Oesophagus:neg. intestinal meta. or dysplasia History of tobacco use Hx of fracture of pelvis pt. 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 Independent with all mobility ADL performance without any assistive device. No longer drives. No falls at home in the past year. Equipment Owned/DME: [facility] Subjective: NT. See most recent FLOORING GRADER notes. Objective: NT. See most recent FLOORING GRADER notes. General Observation: NT. See most recent FLOORING GRADER notes. Mental Status: NT. See most recent FLOORING GRADER notes. Pain: NT. See most recent FLOORING GRADER notes. ROM: Right Upper Extremity: Shoulder Flexion WFL. Shoulder abduction WFL. Elbow flexion WFL. Wrist flexion WFL. Functional opening and closing of hand WFL. Left Upper Extremity: Shoulder Flexion WFL. Shoulder abduction WFL. Elbow flexion WFL. Wrist flexion WFL. Functional opening and closing of hand WFL. Right Lower Extremity: Hip flexion WFL. Hip abduction WFL. Knee flexion WFL. Ankle dorsiflexion WFL. Ankle plantarflexion WFL. Left Lower Extremity: Hip flexion WFL. Hip abduction WFL. Knee flexion WFL. Ankle dorsiflexion WFL. Ankle plantarflexion WFL. Strength: Right Upper Extremity: Shoulder flexors 4/5. Shoulder abductors 4/5. Elbow flexors 5/5. Elbow extensors 5/5. Electric Knife Operator strong. Left Upper Extremity: Shoulder flexors 4/5. Shoulder abductors 4/5. Elbow flexors 5/5. Elbow extensors 5/5. Electric Knife Operator strong. Right Lower Extremity: Hip flexors 4/5. Hip abductors 5/5. Knee flexors 5/5. Knee extensors 4/5. Ankle dorsiflexors 4/5. Ankle plantarflexors 4/5. Left Lower Extremity: Hip flexors 4/5. Hip abductors 5/5. Knee flexors 5/5. Knee extensors 4/5. Ankle dorsiflexors 4/5. Ankle plantarflexors 4/5. Bed Mobility/Transfers: Rolling independent Supine to sit independent Sit to supine independent Sit to stand independent Stand to sit independent Bed to reclining chair independent Reclining chair to bed independent Gait: Instructed patient with level surface ambulation of 250 feet-400 feet requiring supervision. Gait pattern unremarkable. Did demonstrate mild path deviation during directional change x2 but no LOB. Balance: Static Sitting: Normal Dynamic Sitting: Normal Static Standing: Good Dynamic Standing: Fair 4-Stage Balance Test: Able to maintain feet together, semitandem, full tandem, and left 1 legged stance for 10 seconds but is unable to do so with the right 1 legged stance. Assessment: Patient made independent inside her room without an assistive device but will require supervision assist for home ambulation for safety. Minimal fatigue limited safety of stair negotiation this morning causing some minimal instability but no LOB. Patient presents with clinical signs and symptoms consistent with current/admitting diagnoses that have resulted to mobility limitations, gait instability, generalized weakness, and overall ADL decline as demonstrated by the following impairment level findings: 1. Impaired standing balance 2. Impaired activity tolerance 3. Shortness of breath Impairments are contributing to the following functional limitations: 1. Requires assistance with community ambulation at this time due to limitations placed by fatigue and shortness of breath Goals: Goals X 1 week 1. Independent gait on level surface with use of no assistive device for at least 500 feet without report of pain nor dyspnea NOT MET 2. Independent stair negotiation while holding onto no rails for at least 3 steps without report of pain nor dyspnea NOT MET 3. Independent with home exercise program NOT MET 4. Good static and dynamic standing balance/tolerance NOT MET DISCHARGE RECOMMENDATIONS: [X] Home with no services. Home when medically cleared by hospitalist. No equipment needs at this time. [] Home with services [specify] [] Home with outpatient PT [] [] SNF for continued rehabilitation [] [] Counselor Supervisor Care [] [] SNF versus LTC based on ability to participate and progress [] TREATMENT CODE/TIME: NC Thank you for the opportunity to participate in the care of this patient. Alyx Reyes PT, DPT, CLT [facility] [place], [place]
== END 2021-02-06 10:40 | disposition home or self-care (01) | DRG 645 ==
LOC: ER 15:58 → MS 16:50
PROVIDERS: Nurse Practitioner Acute Care; Nurse Practitioner Family; Admitting Provider Family Medicine; Emergency Provider Physician Assistant; Visit Provider Family Medicine
DX: E22.2 Syndrome of inappropriate secretion of antidiuretic hormone (principal); R91.8 Other nonspecific abnormal finding of lung field; R53.1 Weakness; K21.9 Gastro-esophageal reflux disease without esophagitis; D64.9 Anemia, unspecified; K22.70 Barrett's esophagus without dysplasia; Z66 Do not resuscitate; K29.60 Other gastritis without bleeding; I10 Essential (primary) hypertension; Z87.891 Personal history of nicotine dependence; K21.00 Gastro-esophageal reflux disease with esophagitis, without bleeding; E78.5 Hyperlipidemia, unspecified; F32.A Depression, unspecified; Z20.822 Contact with and (suspected) exposure to COVID-19
CPT/HCPCS: 36415; 74177; 80048; 80053; 83690; 87635; 93005; 96361; 96374; 96375; 97161; 97530; 99285; 71260; 81003; 83735; 84295; 84484; 85025; 93010; 99223; 99232; 99238; J1644; J2405; J3490

== ENCOUNTER 2021-02-14 02:47 | Outpatient (CLI) | payer MEDICARE, SELFPAY ==
[2021-02-14 10:35] LABS: Bilirubin Negative (Negative); Blood Negative (Negative); Clarity Clear (Clear); Glucose Negative (Negative); Ketones Negative (Negative); Leukocyte Esterase Negative (Negative); Nitrite Negative (Negative); Urobilinogen 0.2 EU/dL (Up TO 0.2)
[2021-02-14 11:39] LABS: Anion Gap 4.1 mmol/L (3-11); BUN 15 mg/dL (7-18); CO2 32.9 mmol/L (21.0-32.0); CREATININE 0.8 mg/dL (0.55-1.02); Calcium 8.8 mg/dL (8.5-10.1); Chloride 94 mmol/L (98-107); Glucose 71 mg/dL (74-106); Potassium 4.3 mmol/L (3.5-5.1); Sodium 131 mmol/L (136-145)
--- NOTE | 2021-02-14 14:09 | W.NUTCONSULT ---
Date of service: 02/14/21 Time of Service: 14:09 Nutritional Consult ASSESSMENT: Spoke to Ms. Franklin on phone today as did not want to make in person appt. She had labs drawn today. 02/14/21: Sodium: 131. up from 120s last month. Has decreased metoprolol from 75 mg qd to 25 mg qd. Suspect hyponatremia exascerbated by medication error. Diet recall indicates typical meal plan: cereal in AM, sandwich and soup at lunch; home made balanced meal at night. Does no drink excessive amounts of fluid. Has switched to juice, gatorade and has started to eat more high sodium foods such as soups, crackers and chips. 5'1 118 lbs. reports losing 30 lbs this year. Weight appropriate for height. Reviewed high sodium foods and encouraged eating 3 meals daily, and limiting fluids to 48-64 oz daily. WIll follow up prn. Has my contact info. Time Spent in Nutritional Counseling and Treatment: 15
== END 2021-02-14 02:48 | disposition home or self-care (01) ==
LOC: LBO 02:48
PROVIDERS: Family Medicine; Visit Provider Nurse Practitioner Acute Care
DX: N39.0 Urinary tract infection, site not specified (principal)
CPT/HCPCS: 36415; 80048; 81003

== ENCOUNTER 2021-03-01 02:30 | Outpatient (CLI) | payer MEDICARE, SELFPAY ==
[2021-03-01 11:44] LABS: HCT 36.9 % (36.0-46.0); HGB 11.6 g/dL (11.2-15.7)
[2021-03-01 12:52] LABS: Iron 64 ug/dL (50-170)
[2021-03-01 13:25] LABS: Anion Gap 4.3 mmol/L (3-11); BUN 22 mg/dL (7-18); CO2 32.7 mmol/L (21.0-32.0); CREATININE 0.8 mg/dL (0.55-1.02); Calcium 8.7 mg/dL (8.5-10.1); Chloride 101 mmol/L (98-107); Ferritin 186 ng/mL (8-252); Glucose 119 mg/dL (74-106); Potassium 4.5 mmol/L (3.5-5.1); Sodium 138 mmol/L (136-145)
== END 2021-03-01 02:31 | disposition home or self-care (01) ==
LOC: LBO 02:31
DX: D64.9 Anemia, unspecified (principal); R53.83 Other fatigue; E87.1 Hypo-osmolality and hyponatremia; K29.60 Other gastritis without bleeding
CPT/HCPCS: 36415; 80048; 82728; 83540; 85014; 85018

== ENCOUNTER 2021-04-10 11:41 | Outpatient (CLI) | payer MEDICARE, SELFPAY ==
--- NOTE | 2021-04-10 11:30 | RT.EKG_ITS ---
APPROVED REPORT Exam: Resting ECG Reason for Exam: chest pain Patient Location: O HR:62 bpm ECG Measurements Heart Rate [address] 172 P 42 QRSd 84 QRS 60 QT 394 T 36 QTc 398 Conclusion Sinus rhythm...normal P axis, V-rate 60- 99 Atrial premature complex...SV complex w/ short R-R interval Left atrial enlargement...P, P'>60mS, <-0.15mV V1
--- NOTE | 2021-04-10 13:00 | DI.RAD_ITS ---
Exam(s) XR CHEST 2V PA LATERAL EXAM: XR CHEST 2V PA LATERAL CLINICAL HISTORY: 2 days left-sided pleuritic pain, no cough, recent bilat. pneumonia TECHNIQUE: 2D digital imaging was performed of the chest. Two images were obtained. PA and lateral views were obtained. COMPARISON: CR XR CHEST 2V PA LATERAL from 01/29/2021 FINDINGS: MEDIASTINUM: Normal. HEART: Normal. PULMONARY VASCULATURE: Atherosclerosis. LUNGS: No focal consolidating infiltrates. Chronic fibrotic changes are present in the lungs. The p reviously noted infiltrates and right pleural effusion have resolved. PLEURAL SPACE: No pleural effusion or pneumothorax. BONE:Within normal limits for the patient's age. OTHER FINDINGS:Normal. IMPRESSION: No acute pulmonary findings. DATA REPOSITORY: RADIATION DOSE DELIVERED:
== END 2021-04-10 11:42 | disposition home or self-care (01) ==
PROVIDERS: Visit Provider Family Medicine
DX: R07.81 Pleurodynia (principal); I49.1 Atrial premature depolarization; R94.31 Abnormal electrocardiogram [ECG] [EKG]
CPT/HCPCS: 93010; 71046

== ENCOUNTER 2021-04-10 15:28 | Outpatient (REF) | payer MEDICARE, SELFPAY ==
[2021-04-12 13:29] LABS: COVID-19 RT-PCR UVMMC Result Negative (Negative)
== END 2021-04-10 15:29 | disposition home or self-care (01) ==
LOC: LBN 15:28
PROVIDERS: Visit Provider Family Medicine
DX: J22 Unspecified acute lower respiratory infection (principal); Z20.822 Contact with and (suspected) exposure to COVID-19
CPT/HCPCS: U0003

== ENCOUNTER 2021-07-23 00:37 | Outpatient (CLI) | payer MEDICARE, SELFPAY ==
--- NOTE | 2021-07-23 07:45 | DI.MAMMO_ITS ---
Exam(s) MAMMO SCREENING EXAM: MAMMO SCREENING CLINICAL HISTORY: screening.Z12.39 TECHNIQUE: Mammograms were interpreted according to the usual protocol including computer analysis w [employer] CAD system, tomosynthesis and C-view imaging. COMPARISON: 2012 through 2020 FINDINGS: The breasts are composed of scattered fibroglandular densities, Breast Density category B. No suspicious masses or suspicious microcalcifications are seen. No skin thickening or abnormal axillary lymph nodes are seen. There has been no significant change from prior exams. IMPRESSION: BI-RADS Category 1, Negative mammogram Continued annual mammographic screening should be based on patient's clinical status given her age.. Breast Density - Category B, scattered fibroglandular densities. A negative radiographic report should not delay biopsy if a dominant or clinically suspicious mass is present. Up to ten percent of cancers are not identified on mammography. A negative report may reinforce clinical impression. Adenosis and dense breasts may obscure an underlying neoplasm. False positive reports average 6 to 10%. Patient will receive a letter notifying them of these results.
== END 2021-07-23 00:57 ==
DX: Z12.31 Encounter for screening mammogram for malignant neoplasm of breast (principal)
CPT/HCPCS: 77063; 77067

== ENCOUNTER 2021-07-23 17:34 | Outpatient (REF) | payer MEDICARE, SELFPAY | END 2021-07-23 17:35 | disposition home or self-care (01) | LOC: LBN 17:34 ==

== ENCOUNTER 2021-08-07 09:51 | Outpatient (REF) | payer MEDICARE, SELFPAY ==
[2021-08-07 21:41] LABS: Bilirubin Negative (Negative); Blood Negative (Negative); Clarity Sl Cloudy (Clear); Glucose Negative (Negative); Ketones Negative (Negative); Leukocyte Esterase Negative (Negative); Nitrite Positive (Negative); Urobilinogen 0.2 EU/dL (Up TO 0.2); pH 6.5 (5-8)
[2021-08-07 22:04] LABS: Bacteria Many HPF (Negative); C & S Indicated? Yes; Casts Negative LPF (Negative); Crystals Negative HPF (Negative); Epithelial Cells Rare HPF (Negative); Mucus Negative (Negative); RBC Negative HPF (0-2)
== END 2021-08-07 09:52 | disposition home or self-care (01) ==
LOC: LBN 09:51
DX: R10.30 Lower abdominal pain, unspecified (principal); R82.998 Other abnormal findings in urine
CPT/HCPCS: 87077; 81003; 81015; 87086; 87186

== ENCOUNTER → 2021-08-15 03:21 | Outpatient (CLI) | payer MEDICARE, SELFPAY ==
--- NOTE | 2021-08-15 07:30 | DI.US_ITS ---
Exam(s) US ABDOMEN EXAM: US ABDOMEN INDICATION: ruq pain,r10.11 COMPARISON: US US LOWER EXTREMITY VENOUS RT from 12/08/2020 TECHNIQUE: Ultrasound abdomen performed using standard protocol FINDINGS: Abdominal ultrasound was performed according to the usual protocol. The liver is normal in size and shape. No focal hepatic lesion seen. The gallbladder has been surgically removed. There is no evidence of biliary dilatation.. Portal venous flow is hepatopetal. Pancreas appears intact as visualized. Spleen is unremarkable in appearance with no focal lesion. Kidneys are normal in size and shape. No renal mass, hydronephrosis, or nephrolithiasis. Abdominal aorta and IVC are of normal diameter. IMPRESSION: Negative abdominal ultrasound post cholecystectomy.
== END ==
DX: R10.11 Right upper quadrant pain (principal); Z90.49 Acquired absence of other specified parts of digestive tract
CPT/HCPCS: 76700

== ENCOUNTER 2021-09-21 15:25 | Outpatient (REF) | payer MEDICARE, SELFPAY | END 2021-09-21 15:26 | disposition home or self-care (01) | LOC: LBN 15:25 | PROVIDERS: Visit Provider Physician Assistant Medical | DX: N39.0 Urinary tract infection, site not specified (principal) | CPT/HCPCS: 87077; 87086; 87186 ==

== ENCOUNTER 2021-11-14 02:54 | Outpatient (CLI) | payer MEDICARE, SELFPAY ==
[2021-11-14 12:56] LABS: Anion Gap 5.1 mmol/L (3-11); BUN 16 mg/dL (7-18); CO2 31.9 mmol/L (21.0-32.0); CREATININE 0.9 mg/dL (0.55-1.02); Calcium 8.6 mg/dL (8.5-10.1); Chloride 103 mmol/L (98-107); Estimated GFR 63.04 (mL/min/1.73m2); Glucose 103 mg/dL (74-106); Potassium 4.5 mmol/L (3.5-5.1); Sodium 140 mmol/L (136-145)
== END 2021-11-14 02:55 | disposition home or self-care (01) ==
LOC: LOS 02:58
PROVIDERS: Visit Provider Family Medicine
DX: E87.1 Hypo-osmolality and hyponatremia (principal)
CPT/HCPCS: 36415; 80048

== ENCOUNTER 2021-11-14 10:59 | Outpatient (REF) | payer MEDICARE, SELFPAY ==
[2021-11-14 14:42] LABS: Bilirubin Negative (Negative); Blood Negative (Negative); Clarity Clear (Clear); Glucose Negative (Negative); Ketones Negative (Negative); Leukocyte Esterase Small (Negative); Nitrite Positive (Negative); Specific Gravity 1.025 (1.005-1.025); Urobilinogen 0.2 EU/dL (Up TO 0.2)
[2021-11-14 14:53] LABS: Bacteria Moderate HPF (Negative); C & S Indicated? Yes; Casts Negative LPF (Negative); Crystals Negative HPF (Negative); Epithelial Cells Few HPF (Negative); Mucus Negative (Negative); RBC 0-2 HPF (0-2); WBC 20-50 HPF (0-5)
== END 2021-11-14 11:00 | disposition home or self-care (01) ==
LOC: LBN 10:59
PROVIDERS: Visit Provider Family Medicine
DX: R39.89 Other symptoms and signs involving the genitourinary system (principal)
CPT/HCPCS: 87077; 81003; 81015; 87086; 87186

== ENCOUNTER 2021-11-20 08:16 | Emergency (ER) | payer MEDICARE, SELFPAY ==
[2021-11-20 08:22] VITALS: BP 145/118; PULSE 78; RESP 18; TEMP 36.3; O2SAT 93
--- NOTE | 2021-11-20 08:30 | DI.CT_ITS ---
Exam(s) CT ABDOMEN PELVIS W EXAM: CT ABDOMEN PELVIS W CLINICAL HISTORY: Abdominal pain, Nausea TECHNIQUE: Imaging Protocol: Axial computed tomography images with coronal and sagittal reformatted images were created and reviewed CONTRAST MATERIAL: Intravenous: Omnipaque 350 Contrast volume:100 mL Oral: No COMPARISON: CT CT CHEST/ABD/PEL W from 02/04/2021 FINDINGS: ABDOMEN: Lung Bases: There is scarring in the right middle lobe. There are stable calcified and noncalcified p ulmonary nodules in the lung bases. Liver: Normal density. No measurable mass. Portal, Superior Mesenteric, and Splenic Veins: Unremarkable. Gallbladder and Biliary Tract: Status post cholecystectomy. There is stable mild intra and extrahepat ic biliary ductal dilatation. Pancreas: Normal density, no abnormal calcifications or inflammatory process. Spleen: Normal. There is a stable cyst in the superior pole of the spleen. Adrenals: Stable nodularity of the left adrenal gland. The right adrenal gland is unremarkable. Kidneys: Normal size, contour and axis. No radiodense stones or obstructive uropathy. No masses seen. Abdominal Aorta: Abdominal portion non-dilated. Atherosclerosis. Bowel: No obstruction or bowel wall thickening. Appendix is unremarkable. Diverticulosis of the colon , but no evidence of acute diverticulitis. Peritoneal Cavity: No ascites, collection or mesenteric inflammatory response. No free air. Lymph Nodes: Within normal limits. Bones: Within normal limits for the patient's age. Sideplate and screws are seen at the symphysis pu bis. Soft Tissues: Unremarkable. PELVIS: Bladder: The urinary bladder is largely obscured by artifact from the orthopedic hardware at the symp hysis pubis. Reproductive Organs: The patient appears to be status post hysterectomy. Please correlate clinically. This area is partly obscured by the orthopedic artifact. Lymph Nodes: Within normal limits. Bones: Within normal limits for the patient's age. IMPRESSION: 1. No acute abdominal or pelvic process. 2. There is diverticulosis of the colon but no evidence of acute diverticulitis. 3. Stable findings in the lung bases. 4. Results of this exam have been verbally communicated with provider. RADIATION DOSE DELIVERED: 859.16mGy.cm Total DLP DATA REPOSITORY: All CT scans at this facility are submitted to the National Radiology Data Registry (NRDR) Dose Index Registry (DIR) with the [employer] (ACR). RADIATION OPTIMIZATION: All CT scans at this facility use at least one of these dose optimization te chniques: automated exposure control; mA and/or kV adjustment per patient size (includes targeted exa ms where dose is matched to clinical indication); or iterative reconstruction.
--- NOTE | 2021-11-20 08:35 | W.ED.GENAD ---
Discharge Plan Disposition Patient Disposition: HOME Condition: Stable Discharge Details Clinical Impression: Nausea Primary Care Provider: Charla Bobby ED Provider: Isis Vasquez Home Meds and New Rx's Prescriptions: Continued polyethylene glycol 3350 [Miralax] 17 gram/dose powder 17 gm PO DAILY PRN (Reason: constipation) Qty: 238 2RF Hold Instructions: Home Medication placed on hold at Doctor's office Rx Instructions: Mix 17g (heaping tablespoon) of powder in 8 oz liquid once a day for constipation famotidine 20 mg tablet 20 mg PO QHS Qty: 90 3RF sulfamethoxazole-trimethoprim [Bactrim DS] 800-160 mg tablet 1 tab PO BID Qty: 10 0RF omeprazole 40 mg capsule,delayed release(DR/EC) 40 mg PO DAILY Qty: 90 2RF albuterol sulfate 90 mcg/actuation HFA aerosol inhaler 1 - 2 inh IH Q6H PRN (Reason: shortness of breath or wheezing) Qty: 8.5 6RF estradiol 0.01 % (0.1 mg/gram) cream 1 g vaginal DAILY Qty: 42.5 2RF Rx Instructions: local application daily for one week and then 3 times per week ferrous sulfate 325 mg (65 mg iron) tablet 325 mg PO Q OTHER DAY Qty: 90 3RF metoprolol tartrate 25 mg tablet 25 mg PO BID Qty: 180 3RF ondansetron HCl 4 mg tablet 4 mg PO Q8H PRN (Reason: nausea and vomiting) Qty: 21 0RF simvastatin 5 mg tablet 5 mg PO QHS Qty: 90 3RF PreserVision AREDS 7,160 unit- 113 mg-100 unit tablet 1 tab PO BID Qty: 30 0RF Label Comments: 1530 pt is vague about her meds she states that her daughter gives them to her Rx Instructions: 07-08-19 not sent/ophtalmo. Discharge Instructions Instructions: Acute Nausea and Vomiting (ED) Additional Instructions: At this time CT shows no evidence for bowel obstruction or any infection. Lab work is all within normal limits. Follow up with primary care provider in 3-5 days. Return to ED sooner if any worsening or concerns. Increase oral fluids. Referrals: Charla Bobby, ANYA [Primary Care Provider] - 3 days Medical Decision Making 86-year-old female presents with nausea and abdominal pain which is concerning for bowel obstruction per patient report. Abdominal work-up and CT abdomen pelvis ordered. 4 mg Zofran ordered. CBC shows no leukocytosis, CMP shows slightly low sodium at 133, creatinine 1.3, glucose 113 magnesium slightly low at 1.7 alk phos is 128, urinalysis shows no evidence for UTI. Patient was given a 500 cc normal saline bolus. Discussed CT results and lab results verbalized understanding. Instructed to follow-up with PCP. This text was generated using [employer] system, please disregard any oddities of phrase or misspellings. Medical Records Medical records reviewed: Yes I reviewed the patient's medical records. Lab Data Lab results reviewed: Yes I reviewed the patient's lab results. Labs: Laboratory Tests Range/Units 11/20/21 11/20/21 11/20/21 08:45 08:45 09:05 WBC (4.4-10.8) 10^3/uL 4.71 RBC (3.93-5.22) 10^6/uL 4.21 Hgb (11.2-15.7) g/dL 12.5 Hct (36.0-46.0) % 37.9 MCV (80-95) fL 90 MCH (27.0-33.0) pg 29.7 MCHC (32.0-36.0) % 33.0 RDW (11.7-14.6) % 12.5 Plt Count (130-400) 10^3/uL 153 MPV (8.0-11.0) fL 10.8 Immature Gran % 0.2 Neutrophils % 64.8 Lymphocytes % 23.1 Monocytes % 10.4 Eosinophils % 1.1 Basophils % 0.4 Nucleated RBC % (0.0-0.3) % 0.0 Absolute Neutrophils (1.2-6.7) 10^3/uL 3.05 Absolute Lymphocytes (1.2-3.4) 10^3/uL 1.09 L Absolute Monocytes (0.1-0.8) 10^3/uL 0.49 Absolute Eosinophils (0.0-0.7) 10^3/uL 0.05 Absolute Basophils (0.0-0.2) 10^3/uL 0.02 Sodium (136-145) mmol/L 133 L Potassium (3.5-5.1) mmol/L 4.8 Chloride (98-107) mmol/L 98 Carbon Dioxide (21.0-32.0) mmol/L 27.8 Anion Gap (3-11) mmol/L 7.2 BUN (7-18) mg/dL 15 Creatinine (0.55-1.02) mg/dL 1.3 H Est GFR (CKD-EPI 2020) (mL/min/1.73m2) 40.55 Glucose (74-106) mg/dL 113 H Calcium (8.5-10.1) mg/dL 8.8 Magnesium (1.8-2.4) mg/dL 1.7 L Total Bilirubin (0.2-1.0) mg/dL 0.4 AST (15-37) U/L 25 ALT (14-59) U/L 20 Alkaline Phosphatase (46-116) U/L 128 H Total Protein (6.4-8.2) g/dL 7.2 Albumin (3.4-5.0) g/dL 3.7 Lipase (73-393) U/L 98 Urine Color (Yellow) Yellow Urine Clarity (Clear) Clear Urine pH (5-8) 5.5 Ur Specific [place] (1.005-1.025) >= 1.030 H Urine Protein (Negative) mg/dL Negative Urine Ketones (Negative) mg/dL Negative Urine Blood (Negative) Negative Urine Nitrite (Negative) Negative Urine Bilirubin (Negative) Negative Urine Urobilinogen (Up TO 0.2) EU/dL 0.2 Ur Leukocyte Esterase (Negative) Negative Urine Glucose (Negative) mg/dL Negative HPI General Mode of arrival: ambulatory. Date/Time Provider Initiated Documentation: 11/20/21 08:27. Limitations to Documentation: no limitations. Information obtained by: patient, family, RN notes reviewed and old records reviewed. HPI Narrative: 86-year-old female presents to the ER with a chief complaint of nausea and abdominal pain. Patient has a history of chronic abdominal pain and multiple abdominal surgeries due to a traumatic accident. She reports this morning she woke up and felt like she wanted to throw up. She is concerned for a bowel obstruction she reports she did have a small amount of stool this morning which was loose. She does take MiraLAX on a regular basis. She denies any dysuria no fever chills or any other associated symptoms. She does have a past medical history of erosive gastritis, Sherwood's esophagus, GERD, hyponatremia, anemia, hyperlipidemia, surgical history includes hysterectomy, cholecystectomy. Related Data Home Medications Medication Instructions Recorded Confirmed polyethylene glycol 3350 17 17 gm PO DAILY PRN constipation 06/18/19 11/20/21 gram/dose oral powder (Miralax) #238 grams omeprazole 40 mg capsule,delayed 40 mg PO DAILY #90 caps 05/17/21 11/20/21 release albuterol sulfate 90 mcg/actuation 1 - 2 inh inhalation Q6H PRN 05/18/21 11/20/21 aerosol inhaler shortness of breath or wheezing #8.5 grams estradiol 0.01% (0.1 mg/gram) 1 g vaginal DAILY #42.5 grams 05/18/21 11/20/21 vaginal cream ferrous sulfate 325 mg (65 mg 325 mg PO Q OTHER DAY #90 tabs 05/18/21 11/20/21 iron) tablet metoprolol tartrate 25 mg tablet 25 mg PO BID #180 tab-caps 05/18/21 11/20/21 ondansetron HCl 4 mg tablet 4 mg PO Q8H PRN nausea and 05/18/21 11/20/21 vomiting #21 tabs simvastatin 5 mg tablet 5 mg PO QHS #90 tab-caps 05/18/21 11/20/21 vitamins A,C,X-pvup-derejm 2,148 1 tab PO BID #30 tabs 05/18/21 11/20/21 mcg-113 mg-45 mg-17.4 mg tablet (PreserVision AREDS) famotidine 20 mg tablet 20 mg PO QHS #90 tabs 11/13/21 11/20/21 sulfamethoxazole 800 1 tab PO BID UTI #10 tabs 11/14/21 11/20/21 mg-trimethoprim 160 mg tablet (Bactrim DS) Previous Rx's Medication Instructions Recorded polyethylene glycol 3350 17 17 gm PO DAILY PRN constipation 06/18/19 gram/dose oral powder (Miralax) #238 grams omeprazole 40 mg capsule,delayed 40 mg PO DAILY #90 caps 05/17/21 release albuterol sulfate 90 mcg/actuation 1 - 2 inh inhalation Q6H PRN 05/18/21 aerosol inhaler shortness of breath or wheezing #8.5 grams estradiol 0.01% (0.1 mg/gram) 1 g vaginal DAILY #42.5 grams 05/18/21 vaginal cream ferrous sulfate 325 mg (65 mg 325 mg PO Q OTHER DAY #90 tabs 05/18/21 iron) tablet metoprolol tartrate 25 mg tablet 25 mg PO BID #180 tab-caps 05/18/21 ondansetron HCl 4 mg tablet 4 mg PO Q8H PRN nausea and 05/18/21 vomiting #21 tabs simvastatin 5 mg tablet 5 mg PO QHS #90 tab-caps 05/18/21 vitamins A,C,P-razb-mgnixg 2,148 1 tab PO BID #30 tabs 05/18/21 mcg-113 mg-45 mg-17.4 mg tablet (PreserVision AREDS) famotidine 20 mg tablet 20 mg PO QHS #90 tabs 11/13/21 sulfamethoxazole 800 1 tab PO BID UTI #10 tabs 11/14/21 mg-trimethoprim 160 mg tablet (Bactrim DS) Allergies Allergy/AdvReac Type Severity Reaction Status Date / Time ciprofloxacin [From Cipro] Allergy Intermediate Lips and Verified 11/20/21 08:32 face burn, feels shaky, arm tingly codeine AdvReac Intermediate Dizziness/L Verified 11/20/21 08:32 ightheade lovastatin AdvReac Intermediate myalgias Verified 11/20/21 08:32 oxycodone AdvReac Intermediate NAUSEA, GI Verified 11/20/21 08:32 UPSET azithromycin AdvReac cramping, Verified 11/20/21 08:32 anorexia doxycycline AdvReac Nausea, Verified 11/20/21 08:32 Vomiting hydrocodone AdvReac unknown Verified 11/20/21 08:32 General Stated Complaint: Abd Prob MELINDA: 3 Review of Systems All systems reviewed & are unremarkable except as noted in HPI and below Gastrointestinal Gastrointestinal: Reports abdominal pain, Reports loose stools and Reports nausea Genitourinary Genitourinary: Denies dysuria and Denies pelvic pain PFSH All Active Problems (Updated 11/20/21 @ 12:26 by Isis Vasquez NP) Nausea (Acute) Abdominal pain, LLQ (left lower quadrant) (Acute) Lumbar back pain (Acute) Right, without radiation RUQ abdominal pain (Acute) Dermatitis (Acute) Vaginitis, atrophic (Acute) Hyponatremia (Chronic) Multiple occasions last of which was 01/2021, 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 states she is unsure Chest pain Depressive disorder Diverticulitis (09/27/13) 07/28 Epigastric pain Essential hypertension (01/14/13) Family history of GI malignancy Family history of GI malignancy Gastroesophageal reflux disease with esophagitis : EGD: metaplasia/no dysplasia EGD : reactive/chemical gastropathy/no H.Pylori/Oesophagus:neg. intestinal meta. or dysplasia History of tobacco use Hx of fracture of pelvis pt. 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 Daughter No problems noted. Brother No problems noted. Maternal Grandfather No problems noted. Paternal Grandfather No problems noted. Maternal Grandmother No problems noted. Paternal Grandfather No problems noted. Social History Smoking/Tobacco Use Status: Former Tobacco Use tobacco type: cigarettes Quit Date: 03/17/97 Second Hand Exposure: Yes Smoking risk assessment performed?: Yes Alcohol Intake: never Drug use: Never Substance use type: does not use Communication Needs: Hard of Hearing Do you need help understanding health information?: Often Pets and animals: No Sexually active: No Do you think of yourself as: straight/heterosexual Current gender identity: female What is your relationship status?: How often do you talk on the phone with friends or family?: decline to answer How often do you attend latter day or nondenominational services?: decline to answer Do you belong to any clubs or organized social groups?: decline to answer Panel score (0-1 are the most socially isolated patients): 0 What type of physical activity do you participate in: walking Carri/Rastafarian: No preference Special carri needs: No Drive intox 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 route driver salesperson: No Do you feel safe at home: Yes Do you feel safe in your relationship?: Yes Exam Narrative Exam Narrative: Constitutional: Alert and oriented x3. Appears stated age. Normal body habitus. Head: Normocephalic, no trauma. Eyes: Pupils PERRL, Red reflex noted, EOM's intact. Eyelids symmetrical without lesions, discharge, or swelling. ENT: Bilateral TM's WNL, External ear normal to inspection, no mastoid TTP, swelling, or erythema, Nasal turbinates WNL, no nasal discharge. Normal dentition, Posterior pharynx WNL, no exudate. Chest: RRR, Normal S1, S2, distal pulses intact. Resp: Lungs clear to auscultation bilaterally, no wheezes, rales, or rhonchi. Abdomen: Soft, non-distended, Normoactive bowel sounds all 4 quads. Tenderness periumbilical, right upper quadrant. Musculoskeletal: Normal gait, 5/5 strength to all four extremities. Skin: No suspicious rashes or lesions. Capillary refill less than 2 sec. Neurologic: Cranial nerves II-XII intact. Alert and oriented x 3. Motor: No deficits noted. Sensory: Intact bilaterally all 4 extremities. Reflexes: DTR's intact bilaterally.. Hematologic/Lymphatic: No ecchymosis, no lymphadenopathy. Course Vital Signs Vital signs: Vital Signs Temperature 36.3 C L 11/20/21 08:22 Pulse 78 11/20/21 08:22 Respiratory Rate 18 11/20/21 08:22 Blood Pressure 145/118 H 11/20/21 08:22 Pulse Oximetry 93 11/20/21 08:22 Temperature 36.3 C L 11/20/21 08:22 Temperature Source Temporal Artery Scan 11/20/21 08:22 Pulse 78 11/20/21 08:22 Respiratory Rate 18 11/20/21 08:22 Blood Pressure 145/118 H 11/20/21 08:22 Blood Pressure Position Sitting 11/20/21 08:22 Pulse Oximetry 93 11/20/21 08:22 Oxygen Delivery Method Room Air 11/20/21 08:22 Oxygen Flow Rate 0 11/20/21 08:22
[2021-11-20 08:54] LABS: Abs Immature Grans 0.01 10^3/uL (0.0-0.06); Absolute Basophil Count 0.02 10^3/uL (0.0-0.2); Absolute Eosinophil Count 0.05 10^3/uL (0.0-0.7); Absolute Lymphocyte Count 1.09 10^3/uL (1.2-3.4); Absolute Monocyte Count 0.49 10^3/uL (0.1-0.8); Absolute Neutrophil Count 3.05 10^3/uL (1.2-6.7); Basophils % 0.4; Eosinophils % 1.1; HCT 37.9 % (36.0-46.0); HGB 12.5 g/dL (11.2-15.7); Immature Grans % 0.2; Lymphocytes % 23.1; MCH 29.7 pg (27.0-33.0); MCV 90 fL (80-95); MPV 10.8 fL (8.0-11.0); Monocytes % 10.4; Neutrophils % 64.8; Platelet Count 153 10^3/uL (130-400); RBC 4.21 10^6/uL (3.93-5.22); RDW 12.5 % (11.7-14.6); RDW-SD 41.1 fL; WBC 4.71 10^3/uL (4.4-10.8)
[2021-11-20] MEDS: Ondansetron 4 MG/2 ML VIAL IVP (08:55)
[2021-11-20 09:07] LABS: ALT 20 U/L (14-59); AST 25 U/L (15-37); Albumin 3.7 g/dL (3.4-5.0); Alkaline Phosphatase 128 U/L (46-116); Anion Gap 7.2 mmol/L (3-11); BUN 15 mg/dL (7-18); Bilirubin, Total 0.4 mg/dL (0.2-1.0); CO2 27.8 mmol/L (21.0-32.0); CREATININE 1.3 mg/dL (0.55-1.02); Calcium 8.8 mg/dL (8.5-10.1); Chloride 98 mmol/L (98-107); Estimated GFR 40.55 (mL/min/1.73m2); Glucose 113 mg/dL (74-106); Lipase 98 U/L (73-393); Magnesium 1.7 mg/dL (1.8-2.4); Potassium 4.8 mmol/L (3.5-5.1); Sodium 133 mmol/L (136-145); Total Protein 7.2 g/dL (6.4-8.2)
[2021-11-20 09:15] LABS: Bilirubin Negative (Negative); Blood Negative (Negative); Clarity Clear (Clear); Glucose Negative (Negative); Ketones Negative (Negative); Leukocyte Esterase Negative (Negative); Nitrite Negative (Negative); Specific Gravity >= 1.030 (1.005-1.025); Urobilinogen 0.2 EU/dL (Up TO 0.2); pH 5.5 (5-8)
[2021-11-20] MEDS: Normal Saline 500 ML IV (09:59)
[2021-11-20 11:16] VITALS: BP 120/46; PULSE 66; RESP 18; TEMP 36.5; O2SAT 94
[2021-11-20] MEDS: Omnipaque 350 MG/ML 100 ML BTL IJ (11:26)
[2021-11-20] MEDS: Normal Saline Flush 10 ML SYR IVP (11:27)
--- NOTE | 2021-11-20 12:34 | NUR.NOTE ---
Nursing Note: Note to Care Management to contact patient to discuss a different physician.
[2021-11-20 12:51] VITALS: BP 96/48; PULSE 74; RESP 18; TEMP 36.6; O2SAT 93
== END 2021-11-20 12:48 | disposition home or self-care (01) ==
PROVIDERS: Emergency Provider Registered Nurse Emergency
DX: R11.0 Nausea (principal); G89.29 Other chronic pain; R10.11 Right upper quadrant pain; R10.33 Periumbilical pain; E87.1 Hypo-osmolality and hyponatremia; Z87.891 Personal history of nicotine dependence
CPT/HCPCS: 36415; 80053; 83690; 96374; 99285; 74177; 81003; 83735; 85025; 99284; J2405; J3490

== ENCOUNTER 2021-12-20 12:45 | Emergency (ER) | payer MEDICARE, SELFPAY ==
[2021-12-20 12:49] VITALS: BP 156/62; PULSE 77; RESP 18; TEMP 37.4; O2SAT 96
--- NOTE | 2021-12-20 13:00 | RT.EKG_ITS ---
APPROVED REPORT Exam: Resting ECG Reason for Exam: epigastric pain Patient Location: E HR:63 bpm ECG Measurements Heart Rate 63 AXIS WV 164 P 15 QRSd 85 QRS 61 QT 432 T 41 QTc 443 Conclusion Sinus rhythm...normal P axis, V-rate 60- 99 Left atrial enlargement...P, P'>60mS, <-0.15mV V1
[2021-12-20 13:51] LABS: Abs Immature Grans 0.01 10^3/uL (0.0-0.06); Absolute Basophil Count 0.02 10^3/uL (0.0-0.2); Absolute Eosinophil Count 0.02 10^3/uL (0.0-0.7); Absolute Lymphocyte Count 1.04 10^3/uL (1.2-3.4); Absolute Monocyte Count 0.47 10^3/uL (0.1-0.8); Absolute Neutrophil Count 3.46 10^3/uL (1.2-6.7); Basophils % 0.4; Eosinophils % 0.4; HCT 35.3 % (36.0-46.0); HGB 11.9 g/dL (11.2-15.7); Immature Grans % 0.2; Lymphocytes % 20.7; MCHC 33.7 % (32.0-36.0); MCV 89 fL (80-95); MPV 10.8 fL (8.0-11.0); Monocytes % 9.4; Neutrophils % 68.9; Platelet Count 156 10^3/uL (130-400); RBC 3.97 10^6/uL (3.93-5.22); RDW 12.2 % (11.7-14.6); RDW-SD 39.4 fL; WBC 5.02 10^3/uL (4.4-10.8)
[2021-12-20 14:07] LABS: ALT 19 U/L (14-59); AST 25 U/L (15-37); Albumin 3.8 g/dL (3.4-5.0); Alkaline Phosphatase 113 U/L (46-116); Anion Gap 6.5 mmol/L (3-11); BUN 13 mg/dL (7-18); Bilirubin, Total 0.7 mg/dL (0.2-1.0); CO2 30.5 mmol/L (21.0-32.0); Calcium 8.9 mg/dL (8.5-10.1); Chloride 99 mmol/L (98-107); Estimated GFR 55.55 (mL/min/1.73m2); Glucose 89 mg/dL (74-106); Lipase 107 U/L (73-393); Magnesium 1.5 mg/dL (1.8-2.4); Potassium 4.3 mmol/L (3.5-5.1); Sodium 136 mmol/L (136-145); Total Protein 6.9 g/dL (6.4-8.2); Troponin I < 50 ng/L (<or=60)
--- NOTE | 2021-12-20 14:30 | DI.CT_ITS ---
Exam(s) CT ABDOMEN PELVIS W EXAM: CT ABDOMEN PELVIS W INDICATION: abdominal pain, fever. COMPARISON: CT CT ABDOMEN PELVIS W from 11/20/2021 TECHNIQUE: FINDINGS: CT examination of the abdomen and pelvis was performed with intravenous infusion of 100 cc of Omnipaq ue 350. Images obtained through the lung bases are unremarkable. The liver is unremarkable in appearance. Prior cholecystectomy noted, bile ducts are CT normal. Pancreas appears normal. Spleen is unremarkable in appearance with a small incidental cyst.. Adrenals appear normal. The kidneys are unremarkable with no evidence of hydronephrosis, nephrolithiasis, or renal mass.. Ur inary bladder unremarkable. Abdominal aorta is of normal diameter and no major vascular abnormality is seen. No abdominal wall hernia. No abdominal or pelvic adenopathy. Uterus is atrophic or absent. Appendix is normal. No evidence of diverticulitis or bowel obstruction. IMPRESSION: Negative CT examination of the abdomen and pelvis. RADIATION DOSE DELIVERED: 801.54mGy.cm Total DLP 801.54mGy.cm Total DLP !Error CTDIvol RADIATION OPTIMIZATION: All CT scans at this facility use at least one of these dose optimization te chniques: automated exposure control; mA and/or kV adjustment per patient size (includes targeted exa ms where dose is matched to clinical indication); or iterative reconstruction.
[2021-12-20 14:36] LABS: Bilirubin Negative (Negative); Blood Trace-intact (Negative); Clarity Clear (Clear); Glucose Negative (Negative); Ketones 15 mg/dL (Negative); Leukocyte Esterase Moderate (Negative); Nitrite Negative (Negative); pH 6.5 (5-8)
--- NOTE | 2021-12-20 14:39 | W.ED.GENAD ---
Discharge Plan Disposition Patient Disposition: HOME Condition: Stable Discharge Details Clinical Impression: Abdominal pain, LLQ (left lower quadrant), Acute UTI Primary Care Provider: Charla Bobby ED Provider: Katia Munguia Home Meds and New Rx's Prescriptions: New ondansetron HCl 4 mg tablet 4 mg PO TID PRN5 Days Qty: 10 0RF nitrofurantoin monohyd/m-cryst [Macrobid] 100 mg capsule 100 mg PO BID Qty: 14 0RF Rx Instructions: must administer with a meal/food Continued polyethylene glycol 3350 [Miralax] 17 gram/dose powder 17 gm PO DAILY PRN (Reason: constipation) Qty: 238 2RF Hold Instructions: Home Medication placed on hold at Doctor's office Rx Instructions: Mix 17g (heaping tablespoon) of powder in 8 oz liquid once a day for constipation famotidine 20 mg tablet 20 mg PO QHS Qty: 90 3RF sulfamethoxazole-trimethoprim [Bactrim DS] 800-160 mg tablet 1 tab PO BID Qty: 10 0RF omeprazole 40 mg capsule,delayed release(DR/EC) 40 mg PO DAILY Qty: 90 2RF albuterol sulfate 90 mcg/actuation HFA aerosol inhaler 1 - 2 inh IH Q6H PRN (Reason: shortness of breath or wheezing) Qty: 8.5 6RF estradiol 0.01 % (0.1 mg/gram) cream 1 g vaginal DAILY Qty: 42.5 2RF Rx Instructions: local application daily for one week and then 3 times per week ferrous sulfate 325 mg (65 mg iron) tablet 325 mg PO Q OTHER DAY Qty: 90 3RF metoprolol tartrate 25 mg tablet 25 mg PO BID Qty: 180 3RF ondansetron HCl 4 mg tablet 4 mg PO Q8H PRN (Reason: nausea and vomiting) Qty: 21 0RF simvastatin 5 mg tablet 5 mg PO QHS Qty: 90 3RF PreserVision AREDS 7,160 unit- 113 mg-100 unit tablet 1 tab PO BID Qty: 30 0RF Label Comments: 1530 pt is vague about her meds she states that her daughter gives them to her Rx Instructions: 07-08-19 not sent/ophtalmo. Discharge Instructions Instructions: Urinary Tract Infection in Women (ED), Abdominal Pain (ED) Additional Instructions: Take antibiotics as prescribed Yogurt daily while on antibiotic Follow-up with your primary care physician in 24 to 48 hours for reassessment Take Tylenol as needed for pain Return earlier should you have new or worsening complaints Discharge Data Discharge Date/Time-TO BE ENTERED AT DEPARTURE: 12/20/21 16:26 Medical Decision Making Patient appears well, she is alert and oriented She is pending CT at this time She has evidence of a urinary tract infection which will need treatment Hypomagnesemia, supplemented in the emergency department CT does not show evidence of acute abnormality Does appear to have urinary tract infection on urinalysis, will send for culture and treat empirically with Macrobid, I think this is reasonable given her creatinine is within normal limits Patient is afebrile nontoxic, I think she stable for discharge home in the care of her Return precautions sami patient expressed understanding Recheck in 24 to 48 hours by primary care physician recommended Medical Records Medical records reviewed: Yes I reviewed the patient's medical records. Lab Data Lab results reviewed: Yes I reviewed the patient's lab results. HPI General Date/Time Provider Initiated Documentation: 12/20/21 12:47. HPI Narrative: This 86-year-old female presents with report of nausea, vomiting, and abdominal pain. She states her symptoms have been present for the past 3 days. She reportedly has had similar symptoms in the past. She was diagnosed previously with urinary tract infection. Denies cough, shortness of breath, urinary symptoms. States her pain is predominantly in the left lower quadrant and describes it as a constant ache. Related Data Home Medications Medication Instructions Recorded Confirmed polyethylene glycol 3350 17 17 gm PO DAILY PRN constipation 06/18/19 12/20/21 gram/dose oral powder (Miralax) #238 grams omeprazole 40 mg capsule,delayed 40 mg PO DAILY #90 caps 05/17/21 12/20/21 release albuterol sulfate 90 mcg/actuation 1 - 2 inh inhalation Q6H PRN 05/18/21 12/20/21 aerosol inhaler shortness of breath or wheezing #8.5 grams estradiol 0.01% (0.1 mg/gram) 1 g vaginal DAILY #42.5 grams 05/18/21 12/20/21 vaginal cream ferrous sulfate 325 mg (65 mg 325 mg PO Q OTHER DAY #90 tabs 05/18/21 12/20/21 iron) tablet metoprolol tartrate 25 mg tablet 25 mg PO BID #180 tab-caps 05/18/21 12/20/21 ondansetron HCl 4 mg tablet 4 mg PO Q8H PRN nausea and 05/18/21 12/20/21 vomiting #21 tabs simvastatin 5 mg tablet 5 mg PO QHS #90 tab-caps 05/18/21 12/20/21 vitamins A,C,F-sidz-outwgt 2,148 1 tab PO BID #30 tabs 05/18/21 12/20/21 mcg-113 mg-45 mg-17.4 mg tablet (PreserVision AREDS) famotidine 20 mg tablet 20 mg PO QHS #90 tabs 11/13/21 12/20/21 sulfamethoxazole 800 1 tab PO BID UTI #10 tabs 11/14/21 12/20/21 mg-trimethoprim 160 mg tablet (Bactrim DS) nitrofurantoin 100 mg PO BID #14 caps 12/20/21 monohydrate/macrocrystals 100 mg capsule (Macrobid) ondansetron HCl 4 mg tablet 4 mg PO TID PRN 5 days #10 tabs 12/20/21 Previous Rx's Medication Instructions Recorded polyethylene glycol 3350 17 17 gm PO DAILY PRN constipation 06/18/19 gram/dose oral powder (Miralax) #238 grams omeprazole 40 mg capsule,delayed 40 mg PO DAILY #90 caps 05/17/21 release albuterol sulfate 90 mcg/actuation 1 - 2 inh inhalation Q6H PRN 05/18/21 aerosol inhaler shortness of breath or wheezing #8.5 grams estradiol 0.01% (0.1 mg/gram) 1 g vaginal DAILY #42.5 grams 05/18/21 vaginal cream ferrous sulfate 325 mg (65 mg 325 mg PO Q OTHER DAY #90 tabs 05/18/21 iron) tablet metoprolol tartrate 25 mg tablet 25 mg PO BID #180 tab-caps 05/18/21 ondansetron HCl 4 mg tablet 4 mg PO Q8H PRN nausea and 05/18/21 vomiting #21 tabs simvastatin 5 mg tablet 5 mg PO QHS #90 tab-caps 05/18/21 vitamins A,C,F-gkpz-cczuiw 2,148 1 tab PO BID #30 tabs 05/18/21 mcg-113 mg-45 mg-17.4 mg tablet (PreserVision AREDS) famotidine 20 mg tablet 20 mg PO QHS #90 tabs 11/13/21 sulfamethoxazole 800 1 tab PO BID UTI #10 tabs 11/14/21 mg-trimethoprim 160 mg tablet (Bactrim DS) nitrofurantoin 100 mg PO BID #14 caps 12/20/21 monohydrate/macrocrystals 100 mg capsule (Macrobid) ondansetron HCl 4 mg tablet 4 mg PO TID PRN 5 days #10 tabs 12/20/21 Allergies Allergy/AdvReac Type Severity Reaction Status Date / Time ciprofloxacin [From Cipro] Allergy Intermediate Lips and Verified 11/20/21 08:32 face burn, feels shaky, arm tingly codeine AdvReac Intermediate Dizziness/L Verified 11/20/21 08:32 ightheade lovastatin AdvReac Intermediate myalgias Verified 11/20/21 08:32 oxycodone AdvReac Intermediate NAUSEA, GI Verified 11/20/21 08:32 UPSET azithromycin AdvReac cramping, Verified 11/20/21 08:32 anorexia doxycycline AdvReac Nausea, Verified 11/20/21 08:32 Vomiting hydrocodone AdvReac unknown Verified 11/20/21 08:32 General Stated Complaint: Abd Prob MELINDA: 3 Review of Systems All systems reviewed & are unremarkable except as noted in HPI and below PFSH All Active Problems (Updated 12/21/21 @ 00:06 by CHERYLE DEAL) Acute UTI (Acute) Abdominal pain, LLQ (left lower quadrant) (Acute) Lumbar back pain (Acute) Right, without radiation RUQ abdominal pain (Acute) Dermatitis (Acute) Vaginitis, atrophic (Acute) Hyponatremia (Chronic) Multiple occasions last of which was 01/2021, 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 states she is unsure Chest pain Depressive disorder Diverticulitis (09/27/13) 07/28 Epigastric pain Essential hypertension (01/14/13) Family history of GI malignancy Family history of GI malignancy Gastroesophageal reflux disease with esophagitis : EGD: metaplasia/no dysplasia EGD : reactive/chemical gastropathy/no H.Pylori/Oesophagus:neg. intestinal meta. or dysplasia History of tobacco use Hx of fracture of pelvis pt. 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 Daughter No problems noted. Brother No problems noted. Maternal Grandfather No problems noted. Paternal Grandfather No problems noted. Maternal Grandmother No problems noted. Paternal Grandfather No problems noted. Social History Smoking/Tobacco Use Status: Former Tobacco Use tobacco type: cigarettes Quit Date: 03/17/97 Second Hand Exposure: Yes Smoking risk assessment performed?: Yes Alcohol Intake: never Drug use: Never Substance use type: does not use Communication Needs: Hard of Hearing Do you need help understanding health information?: Often Pets and animals: No Sexually active: No Do you think of yourself as: straight/heterosexual Current gender identity: female What is your relationship status?: How often do you talk on the phone with friends or family?: decline to answer How often do you attend mormonism or buddhist services?: decline to answer Do you belong to any clubs or organized social groups?: decline to answer Panel score (0-1 are the most socially isolated patients): 0 What type of physical activity do you participate in: walking Carri/Judaism: No preference Special carri needs: No Drive intox 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 Do you feel safe at home: Yes Do you feel safe in your relationship?: Yes Exam Const General: cooperative, comfortable and no acute distress Eyes Sclera: sclerae normal Chest Chest: normal inspection of the chest Resp Effort & Inspection: normal respiratory effort Cardio Rate: regular rate Rhythm: regular rhythm Other: distal pulses intact GI Other: left lower quadrant tenderness with palpation, no rebound or guarding, no CVA tenderness Skin General skin exam: no rashes or lesions noted Neuro General: patient alert Course Vital Signs Vital signs: Vital Signs Temperature 37.4 C 12/20/21 12:49 Pulse 77 12/20/21 12:49 Respiratory Rate 18 12/20/21 12:49 Blood Pressure 156/62 H 12/20/21 12:49 Pulse Oximetry 96 12/20/21 12:49 Temperature 37.4 C 12/20/21 12:49 Temperature Source Temporal Artery Scan 12/20/21 12:49 Pulse 77 12/20/21 12:49 Respiratory Rate 18 12/20/21 12:49 Respiratory Effort Non-Labored 12/20/21 12:55 Blood Pressure 156/62 H 12/20/21 12:49 Blood Pressure Position Sitting 12/20/21 12:49 Pulse Oximetry 96 12/20/21 12:49 Oxygen Delivery Method Room Air 12/20/21 12:49 Oxygen Flow Rate 0 12/20/21 12:49 Lab/Test Results Lab/Test Results: Laboratory Tests Range/Units 12/20/21 12/20/21 12/20/21 13:42 13:42 13:42 WBC (4.4-10.8) 10^3/uL 5.02 RBC (3.93-5.22) 10^6/uL 3.97 Hgb (11.2-15.7) g/dL 11.9 Hct (36.0-46.0) % 35.3 L MCV (80-95) fL 89 MCH (27.0-33.0) pg 30.0 MCHC (32.0-36.0) % 33.7 RDW (11.7-14.6) % 12.2 Plt Count (130-400) 10^3/uL 156 MPV (8.0-11.0) fL 10.8 Immature Gran % 0.2 Neutrophils % 68.9 Lymphocytes % 20.7 Monocytes % 9.4 Eosinophils % 0.4 Basophils % 0.4 Nucleated RBC % (0.0-0.3) % 0.0 Absolute Neutrophils (1.2-6.7) 10^3/uL 3.46 Absolute Lymphocytes (1.2-3.4) 10^3/uL 1.04 L Absolute Monocytes (0.1-0.8) 10^3/uL 0.47 Absolute Eosinophils (0.0-0.7) 10^3/uL 0.02 Absolute Basophils (0.0-0.2) 10^3/uL 0.02 Sodium (136-145) mmol/L 136 Potassium (3.5-5.1) mmol/L 4.3 Chloride (98-107) mmol/L 99 Carbon Dioxide (21.0-32.0) mmol/L 30.5 Anion Gap (3-11) mmol/L 6.5 BUN (7-18) mg/dL 13 Creatinine (0.55-1.02) mg/dL 1.0 Est GFR (CKD-EPI 2020) (mL/min/1.73m2) 55.55 Glucose (74-106) mg/dL 89 Calcium (8.5-10.1) mg/dL 8.9 Magnesium (1.8-2.4) mg/dL 1.5 L Total Bilirubin (0.2-1.0) mg/dL 0.7 AST (15-37) U/L 25 ALT (14-59) U/L 19 Alkaline Phosphatase (46-116) U/L 113 Troponin I (<or=60) ng/L < 50 Cancelled Total Protein (6.4-8.2) g/dL 6.9 Albumin (3.4-5.0) g/dL 3.8 Lipase (73-393) U/L 107 Urine Color (Yellow) Urine Clarity (Clear) Urine pH (5-8) Ur Specific [place] (1.005-1.025) Urine Protein (Negative) mg/dL Urine Ketones (Negative) mg/dL Urine Blood (Negative) Urine Nitrite (Negative) Urine Bilirubin (Negative) Urine Urobilinogen (Up TO 0.2) EU/dL Ur Leukocyte Esterase (Negative) Urine Glucose (Negative) mg/dL Range/Units 12/20/21 12/20/21 13:42 14:22 WBC (4.4-10.8) 10^3/uL RBC (3.93-5.22) 10^6/uL Hgb (11.2-15.7) g/dL Hct (36.0-46.0) % MCV (80-95) fL MCH (27.0-33.0) pg MCHC (32.0-36.0) % RDW (11.7-14.6) % Plt Count (130-400) 10^3/uL MPV (8.0-11.0) fL Immature Gran % Neutrophils % Lymphocytes % Monocytes % Eosinophils % Basophils % Nucleated RBC % (0.0-0.3) % Absolute Neutrophils (1.2-6.7) 10^3/uL Absolute Lymphocytes (1.2-3.4) 10^3/uL Absolute Monocytes (0.1-0.8) 10^3/uL Absolute Eosinophils (0.0-0.7) 10^3/uL Absolute Basophils (0.0-0.2) 10^3/uL Sodium (136-145) mmol/L Potassium (3.5-5.1) mmol/L Chloride (98-107) mmol/L Carbon Dioxide (21.0-32.0) mmol/L Anion Gap (3-11) mmol/L BUN (7-18) mg/dL Creatinine (0.55-1.02) mg/dL Est GFR (CKD-EPI 2020) (mL/min/1.73m2) Glucose (74-106) mg/dL Calcium (8.5-10.1) mg/dL Magnesium (1.8-2.4) mg/dL Cancelled Total Bilirubin (0.2-1.0) mg/dL AST (15-37) U/L ALT (14-59) U/L Alkaline Phosphatase (46-116) U/L Troponin I (<or=60) ng/L Total Protein (6.4-8.2) g/dL Albumin (3.4-5.0) g/dL Lipase (73-393) U/L Urine Color (Yellow) Yellow Urine Clarity (Clear) Clear Urine pH (5-8) 6.5 Ur Specific [place] (1.005-1.025) 1.010 Urine Protein (Negative) mg/dL Negative Urine Ketones (Negative) mg/dL 15 H Urine Blood (Negative) Trace-intact H Urine Nitrite (Negative) Negative Urine Bilirubin (Negative) Negative Urine Urobilinogen (Up TO 0.2) EU/dL 1.0 H Ur Leukocyte Esterase (Negative) Moderate H Urine Glucose (Negative) mg/dL Negative
[2021-12-20 14:44] LABS: Bacteria Moderate HPF (Negative); C & S Indicated? Yes; Casts Negative LPF (Negative); Crystals Negative HPF (Negative); Epithelial Cells Negative HPF (Negative); Mucus Negative (Negative); Other Cells Negative (Negative); WBC 20-50 HPF (0-5)
[2021-12-20] MEDS: MAGNESIUM SULFATE 1 GM/100 ML BAG IVPB (14:46)
--- NOTE | 2021-12-20 15:16 | NUR.NOTE ---
Nursing Note: med list verified via [facility]
[2021-12-20] MEDS: Omnipaque 350 MG/ML 100 ML BTL IJ (15:18)
[2021-12-20] MEDS: MacroBID 100 MG CAP PO (16:03)
== END 2021-12-20 16:26 | disposition home or self-care (01) ==
PROVIDERS: Emergency Provider Physician Assistant
DX: N39.0 Urinary tract infection, site not specified (principal); E83.42 Hypomagnesemia; I10 Essential (primary) hypertension; Z90.710 Acquired absence of both cervix and uterus; Z90.49 Acquired absence of other specified parts of digestive tract; Z87.891 Personal history of nicotine dependence
CPT/HCPCS: 36415; 80053; 83690; 87077; 93005; 96365; 99285; 74177; 81003; 81015; 83735; 84484; 85025; 87086; 87186; 93010; 99284; J3475; J3490

== ENCOUNTER 2021-12-28 13:32 | Outpatient (REF) | payer MEDICARE, SELFPAY ==
[2021-12-28 21:39] LABS: Bilirubin Negative (Negative); Blood Negative (Negative); Clarity Clear (Clear); Glucose Negative (Negative); Ketones Negative (Negative); Leukocyte Esterase Negative (Negative); Nitrite Negative (Negative); Urobilinogen 0.2 EU/dL (Up TO 0.2); pH 6.5 (5-8)
== END 2021-12-28 13:33 | disposition home or self-care (01) ==
LOC: LBN 13:32
PROVIDERS: Visit Provider Emergency Medicine
DX: N39.0 Urinary tract infection, site not specified (principal); R10.32 Left lower quadrant pain
CPT/HCPCS: 81003

== ENCOUNTER 2022-05-31 07:56 | Outpatient (CLI) | payer MEDICARE, SELFPAY ==
[2022-05-31 12:59] LABS: Anion Gap 5.4 mmol/L (3-11); BUN 19 mg/dL (7-18); CO2 31.6 mmol/L (21.0-32.0); CREATININE 0.8 mg/dL (0.55-1.02); Calcium 8.9 mg/dL (8.5-10.1); Chloride 101 mmol/L (98-107); Estimated GFR 72.16 (mL/min/1.73m2); Glucose 98 mg/dL (74-106); Potassium 4.1 mmol/L (3.5-5.1); Sodium 138 mmol/L (136-145)
== END 2022-05-31 07:57 | disposition home or self-care (01) ==
LOC: LOS 07:57
PROVIDERS: PCP Nurse Practitioner Family; Referring Provider Nurse Practitioner Family; Visit Provider Nurse Practitioner Family
DX: E87.1 Hypo-osmolality and hyponatremia (principal); R03.0 Elevated blood-pressure reading, without diagnosis of hypertension
CPT/HCPCS: 36415; 80048

== ENCOUNTER 2022-05-31 18:56 | Outpatient (REF) | payer MEDICARE, SELFPAY | END 2022-05-31 18:57 | disposition home or self-care (01) | LOC: LBN 18:56 | PROVIDERS: PCP Nurse Practitioner Family; Visit Provider Nurse Practitioner Family | DX: N39.0 Urinary tract infection, site not specified (principal) | CPT/HCPCS: 87077; 87086; 87186 ==

== ENCOUNTER 2022-06-06 12:31 | Outpatient (CLI) | payer MEDICARE, SELFPAY ==
[2022-06-06] MEDS: Barium Sulfate 2% W/V-Berry Smoothie 450 ML BTL PO ×2 (13:25→13:26)
[2022-06-06] MEDS: Omnipaque 350 MG/ML 100 ML BTL IJ (15:47)
[2022-06-06] MEDS: Normal Saline - Diluent 50 ML VIAL IJ (15:48)
[2022-06-06] MEDS: Normal Saline Flush 10 ML SYR IVP (15:48)
--- NOTE | 2022-06-06 15:55 | DI.CT_ITS ---
Exam(s) CT ABDOMEN PELVIS W EXAM: CT ABDOMEN PELVIS W CLINICAL HISTORY: increasing rlq pain after completing bactrim R10.9 ABD PAIN TECHNIQUE: Imaging Protocol: Axial computed tomography images with coronal and sagittal reformatted images were created and reviewed CONTRAST MATERIAL: Intravenous: Omnipaque 350 Contrast volume:100 mL Oral: Yes COMPARISON: CT CT ABDOMEN PELVIS W from 12/20/2021 FINDINGS: The examination is limited due to patient motion artifact. ABDOMEN: Lung Bases: Small consolidations are seen in the lingula and right middle lobe which may represent at electasis or pneumonia. Liver: Normal density. No measurable mass. Portal, Superior Mesenteric, and Splenic Veins: Unremarkable. Gallbladder and Biliary Tract: Status post cholecystectomy. Stable mild intra and extrahepatic bilia ry ductal dilatation. Pancreas: Normal density, no abnormal calcifications or inflammatory process. Spleen: There is a stable cyst in the superior spleen. Adrenals: No masses seen. Kidneys: Normal size, contour and axis. No radiodense stones or obstructive uropathy. No masses seen. Abdominal Aorta: Abdominal portion non-dilated. Atherosclerosis. Bowel: There is diverticulosis seen in the colon, but no evidence of acute diverticulitis. There is no evidence of bowel obstruction or bowel wall thickening. There is a normal appendix present. Peritoneal Cavity: No ascites, collection or mesenteric inflammatory response. There is a focus of e xtraluminal air seen in the pelvis anteriorly.(Series 7, image 769). There is also air in the pelvis near the orthopedic artifact which may be extraluminal. (Series 7, image 702). Lymph Nodes: Within normal limits. Bones: Side plates and screws are seen crossing the symphysis pubis. There is a large amount of christiano fact in the pelvis as a result. Degenerative changes are seen in the spine. The bones are osteopeni c. There are old healed right inferior pubic rami fractures. Soft Tissues: Unremarkable. PELVIS: Bladder: The bladder can't be evaluated due to the metallic artifact in the symphysis pubis. Reproductive Organs: The uterus is not visualized. Lymph Nodes: Within normal limits. Bones: Please see the above section. IMPRESSION: 1. Findings suspicious for pneumoperitoneum which raises a question of a ruptured viscus. 2. Infiltrates in the lingula and right middle lobe which may represent atelectasis or pneumonia. RADIATION DOSE DELIVERED: 986.07mGy.cm Total DLP DATA REPOSITORY: All CT scans at this facility are submitted to the National Radiology Data Registry (NRDR) Dose Index Registry (DIR) with the [employer] (A[employer]). RADIATION OPTIMIZATION: All CT scans at this facility use at least one of these dose optimization te chniques: automated exposure control; mA and/or kV adjustment per patient size (includes targeted exa ms where dose is matched to clinical indication); or iterative reconstruction.
== END 2022-06-06 12:51 ==
LOC: DI 12:32
PROVIDERS: PCP Nurse Practitioner Family; Visit Provider Nurse Practitioner Family
DX: R10.31 Right lower quadrant pain (principal); R91.8 Other nonspecific abnormal finding of lung field; Z90.49 Acquired absence of other specified parts of digestive tract; M85.88 Other specified disorders of bone density and structure, other site; K66.8 Other specified disorders of peritoneum
CPT/HCPCS: 74177; J3490

== ENCOUNTER 2022-06-06 18:05 | Observation (INO) | payer MEDICARE, SELFPAY ==
[2022-06-06 18:14] VITALS: BP 127/64; PULSE 65; RESP 18; TEMP 36.9; O2SAT 95
--- NOTE | 2022-06-06 19:21 | ED.GENADUL_ITS ---
Discharge Plan Disposition Patient Disposition: Admit to [facility] Condition: Stable Discharge Details Clinical Impression: Pneumoperitoneum Primary Care Provider: Jason Huff ED Provider: Isis Vasquez Home Meds and New Rx's Prescriptions: No Action polyethylene glycol 3350 [Miralax] 17 gram/dose powder 17 gm PO DAILY PRN (Reason: constipation) Qty: 238 2RF Hold Instructions: Home Medication placed on hold at Doctor's office Rx Instructions: Mix 17g (heaping tablespoon) of powder in 8 oz liquid once a day for constipation famotidine 20 mg tablet 20 mg PO QHS Qty: 90 3RF sulfamethoxazole-trimethoprim [Bactrim DS] 800-160 mg tablet 1 tab PO BID Qty: 10 0RF albuterol sulfate 90 mcg/actuation HFA aerosol inhaler 1 - 2 inh IH Q6H PRN (Reason: shortness of breath or wheezing) Qty: 8.5 6RF estradiol 0.01 % (0.1 mg/gram) cream 1 g vaginal DAILY Qty: 42.5 2RF Rx Instructions: local application daily for one week and then 3 times per week ferrous sulfate 325 mg (65 mg iron) tablet 325 mg PO Q OTHER DAY Qty: 90 3RF metoprolol tartrate 25 mg tablet 25 mg PO BID Qty: 180 3RF omeprazole 40 mg capsule,delayed release(DR/EC) 40 mg PO DAILY Qty: 90 2RF ondansetron HCl 4 mg tablet 4 mg PO Q8H PRN (Reason: nausea and vomiting) Qty: 21 0RF simvastatin 5 mg tablet 5 mg PO QHS Qty: 90 3RF Medical Decision Making 87-year-old female presents to the ER with chief complaint of upper abdominal pain. Patient was seen by her PCP yesterday had a CT abdomen pelvis today which showed possible extraluminal air, she has been complaining of some right-sided abdominal pain for approximately 2 weeks. She endorses nausea and chills and diarrhea denies any medic easier bladder or stool. She does have a past medical history of COPD, Sherwood's esophagus, hypertension, gastritis and GERD. She is a former smoker. Work-up ordered including CBC CMP lactate, urinalysis. Will consult general surgery. Patient is complaining of some right upper quadrant abdominal pain for approximately 2 weeks she does report some diarrhea and chills no fever. She reports nausea no vomiting. CBC shows no leukocytosis, lactate 0.7, sodium 131, creatinine 1.4 BUN 19 GFR is 36, alk phos 140 20 53: Surgery paged [id number]: Spoke with Dr. Lanier general surgery he agrees to accept patient for admission for observation and antibiotics. I will speak with patient and family who are in agreement with the plan. At the time of this dictation patient is hemodynamically stable alert and oriented. Pending placement and room assignment on the floor for admission. This text was generated using eventblimp dictation system, please disregard any oddities of phrase or misspellings. Medical Records Medical records reviewed: Yes I reviewed the patient's medical records. Imaging Data Radiologic Study: Imaging: CT Scan Radiologist's impression: CT ABDOMEN PELVIS W EXAM: CT ABDOMEN PELVIS W CLINICAL HISTORY: increasing rlq pain after completing bactrim R10.9 ABD PAIN TECHNIQUE: Imaging Protocol: Axial computed tomography images with coronal and sagittal reformatted images were created and reviewed CONTRAST MATERIAL: Intravenous: Omnipaque 350 Contrast volume:100 mL Oral: Yes COMPARISON: CT CT ABDOMEN PELVIS W from 12/20/2021 FINDINGS: The examination is limited due to patient motion artifact. ABDOMEN: Lung Bases: Small consolidations are seen in the lingula and right middle lobe which may represent atelectasis or pneumonia. Liver: Normal density. No measurable mass. Portal, Superior Mesenteric, and Splenic Veins: Unremarkable. Gallbladder and Biliary Tract: Status post cholecystectomy. Stable mild intra and extrahepatic biliary ductal dilatation. Pancreas: Normal density, no abnormal calcifications or inflammatory process. Spleen: There is a stable cyst in the superior spleen. Adrenals: No masses seen. Kidneys: Normal size, contour and axis. No radiodense stones or obstructive uropathy. No masses seen. Abdominal Aorta: Abdominal portion non-dilated. Atherosclerosis. Bowel: There is diverticulosis seen in the colon, but no evidence of acute diverticulitis. There is no evidence of bowel obstruction or bowel wall t hickening. There is a normal appendix present. Peritoneal Cavity: No ascites, collection or mesenteric inflammatory response. There is a focus of extraluminal air seen in the pelvis anteriorly.(Series 7, image 769). There is also air in the pelvis near the orthopedic artifact which may be extraluminal. (Series 7, image 702). Lymph Nodes: Within normal limits. Bones: Side plates and screws are seen crossing the symphysis pubis. There is a large amount of artifact in the pelvis as a result. Degenerative changes are seen in the spine. The bones are osteopenic. There are old healed right inferior pubic rami fractures. Soft Tissues: Unremarkable. PELVIS: Bladder: The bladder can't be evaluated due to the metallic artifact in the symphysis pubis. Reproductive Organs: The uterus is not visualized. Lymph Nodes: Within normal limits. Bones: Please see the above section. IMPRESSION: 1. Findings suspicious for pneumoperitoneum which raises a question of a ruptured viscus. 2. Infiltrates in the lingula and right middle lobe which may represent atelectasis or pneumonia. Lab Data Lab results reviewed: Yes I reviewed the patient's lab results. Labs: Laboratory Tests Range/Units 06/06/22 06/06/22 06/06/22 19:32 19:32 19:32 WBC (4.4-10.8) 10^3/uL 5.66 RBC (3.93-5.22) 10^6/uL 4.33 Hgb (11.2-15.7) g/dL 13.0 Hct (36.0-46.0) % 38.5 MCV (80-95) fL 89 MCH (27.0-33.0) pg 30.0 MCHC (32.0-36.0) % 33.8 RDW (11.7-14.6) % 12.2 Plt Count (130-400) 10^3/uL 174 MPV (8.0-11.0) fL 10.3 Immature Gran % 0.2 Neutrophils % 60.7 Lymphocytes % 27.9 Monocytes % 9.9 Eosinophils % 0.9 Basophils % 0.4 Nucleated RBC % (0.0-0.3) % 0.0 Absolute Neutrophils (1.2-6.7) 10^3/uL 3.44 Absolute Lymphocytes (1.2-3.4) 10^3/uL 1.58 Absolute Monocytes (0.1-0.8) 10^3/uL 0.56 Absolute Eosinophils (0.0-0.7) 10^3/uL 0.05 Absolute Basophils (0.0-0.2) 10^3/uL 0.02 VBG Lactate (0.6-1.4) mmol/L 0.7 Sodium (136-145) mmol/L 131 L Potassium (3.5-5.1) mmol/L 4.8 Chloride (98-107) mmol/L 96 L Carbon Dioxide (21.0-32.0) mmol/L 28.0 Anion Gap (3-11) mmol/L 7.0 BUN (7-18) mg/dL 19 H Creatinine (0.55-1.02) mg/dL 1.4 H Est GFR (CKD-EPI 2020) (mL/min/1.73m2) 36.87 Glucose (74-106) mg/dL 82 Calcium (8.5-10.1) mg/dL 8.9 Magnesium (1.8-2.4) mg/dL 2.0 Total Bilirubin (0.2-1.0) mg/dL 0.6 AST (15-37) U/L 34 ALT (14-59) U/L 35 Alkaline Phosphatase (46-116) U/L 140 H Total Protein (6.4-8.2) g/dL 7.4 Albumin (3.4-5.0) g/dL 3.9 HPI General Mode of arrival: ambulatory . Date/Time Provider Initiated Documentation: 06/06/22 19:01 . Limitations to Documentation: no limitations . Information obtained by: patient, RN/MD, RN notes reviewed and old records reviewed . HPI Narrative: 87-year-old female presents to the ER with chief complaint of upper abdominal pain. Patient was seen by her PCP yesterday had a CT abdomen pelvis today which showed possible extraluminal air, she has been complaining of some right-sided abdominal pain for approximately 2 weeks. She endorses nausea and chills and diarrhea denies any medic easier bladder or stool. She does have a past medical history of COPD, Sherwood's esophagus, hypertension, gastritis and GERD. She is a former smoker. Related Data Home Medications Medication Instructions Recorded Confirmed polyethylene glycol 3350 17 17 gm PO DAILY PRN constipation 06/18/19 06/06/22 gram/dose oral powder (Miralax) #238 grams famotidine 20 mg tablet 20 mg PO QHS #90 tabs 11/13/21 06/06/22 albuterol sulfate 90 mcg/actuation 1 - 2 inh inhalation Q6H PRN 02/26/22 06/06/22 aerosol inhaler shortness of breath or wheezing #8.5 grams estradiol 0.01% (0.1 mg/gram) 1 g vaginal DAILY #42.5 grams 02/26/22 06/06/22 vaginal cream ferrous sulfate 325 mg (65 mg 325 mg PO Q OTHER DAY #90 tabs 02/26/22 06/06/22 iron) tablet metoprolol tartrate 25 mg tablet 25 mg PO BID #180 tab-caps 02/26/22 06/06/22 omeprazole 40 mg capsule,delayed 40 mg PO DAILY #90 caps 02/26/22 06/06/22 release ondansetron HCl 4 mg tablet 4 mg PO Q8H PRN nausea and 02/26/22 06/06/22 vomiting #21 tabs simvastatin 5 mg tablet 5 mg PO QHS #90 tab-caps 02/26/22 06/06/22 sulfamethoxazole 800 1 tab PO BID UTI #10 tabs 05/31/22 06/06/22 mg-trimethoprim 160 mg tablet (Bactrim DS) Previous Rx's Medication Instructions Recorded polyethylene glycol 3350 17 17 gm PO DAILY PRN constipation 06/18/19 gram/dose oral powder (Miralax) #238 grams famotidine 20 mg tablet 20 mg PO QHS #90 tabs 11/13/21 albuterol sulfate 90 mcg/actuation 1 - 2 inh inhalation Q6H PRN 02/26/22 aerosol inhaler shortness of breath or wheezing #8.5 grams estradiol 0.01% (0.1 mg/gram) 1 g vaginal DAILY #42.5 grams 02/26/22 vaginal cream ferrous sulfate 325 mg (65 mg 325 mg PO Q OTHER DAY #90 tabs 02/26/22 iron) tablet metoprolol tartrate 25 mg tablet 25 mg PO BID #180 tab-caps 02/26/22 omeprazole 40 mg capsule,delayed 40 mg PO DAILY #90 caps 02/26/22 release ondansetron HCl 4 mg tablet 4 mg PO Q8H PRN nausea and 02/26/22 vomiting #21 tabs simvastatin 5 mg tablet 5 mg PO QHS #90 tab-caps 02/26/22 sulfamethoxazole 800 1 tab PO BID UTI #10 tabs 05/31/22 mg-trimethoprim 160 mg tablet (Bactrim DS) Allergies Allergy/AdvReac Type Severity Reaction Status Date / Time ciprofloxacin [From Cipro] Allergy Intermediate Lips and Verified 06/05/22 10:47 face burn, feels shaky, arm tingly codeine AdvReac Intermediate Dizziness/L Verified 06/05/22 10:47 ightheade lovastatin AdvReac Intermediate myalgias Verified 06/05/22 10:47 oxycodone AdvReac Intermediate NAUSEA, GI Verified 06/05/22 10:47 UPSET azithromycin AdvReac cramping, Verified 06/05/22 10:47 anorexia doxycycline AdvReac Nausea, Verified 06/05/22 10:47 Vomiting hydrocodone AdvReac unknown Verified 06/05/22 10:47 General Stated Complaint: Abd Prob MELINDA: 3 Review of Systems All systems reviewed & are unremarkable except as noted in HPI and below Gastrointestinal Gastrointestinal: Reports as per HPI, Reports abdominal pain, Reports diarrhea, Reports nausea and Denies vomiting PFSH All Active Problems Pneumoperitoneum (Acute) Constipation (Acute) Abdominal pain, LLQ (left lower quadrant) (Acute) Lumbar back pain (Acute) Right, without radiation RUQ abdominal pain (Acute) Dermatitis (Acute) Vaginitis, atrophic (Acute) Hyponatremia (Chronic) Multiple occasions last of which was 01/2021, 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 states she is unsure Chest pain Depressive disorder Diverticulitis (09/27/13) 07/28 Epigastric pain Essential hypertension (01/14/13) Family history of GI malignancy Family history of GI malignancy Gastroesophageal reflux disease with esophagitis : EGD: metaplasia/no dysplasia EGD : reactive/chemical gastropathy/no H.Pylori/Oesophagus:neg. intestinal meta. or dysplasia History of tobacco use Hx of fracture of pelvis pt. 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 Daughter No problems noted. Brother No problems noted. Maternal Grandfather No problems noted. Paternal Grandfather No problems noted. Maternal Grandmother No problems noted. Paternal Grandfather No problems noted. Social History Smoking/Tobacco Use Status: Former Tobacco Use tobacco type: cigarettes Quit Date: 03/17/97 Second Hand Exposure: Yes Smoking risk assessment performed?: Yes Alcohol Intake: never Drug use: Never Substance use type: does not use Communication Needs: Hard of Hearing Do you need help understanding health information?: Often Pets and animals: No Sexually active: No Do you think of yourself as: straight/heterosexual Current gender identity: female What is your relationship status?: How often do you talk on the phone with friends or family?: decline to answer How often do you attend restorationist or orthodox services?: decline to answer Do you belong to any clubs or organized social groups?: decline to answer Panel score (0-1 are the most socially isolated patients): 0 What type of physical activity do you participate in: walking Carri/Jainism: No preference Special carri needs: No Drive intox 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 local truck driver: No Do you feel safe at home: Yes Do you feel safe in your relationship?: Yes Exam Narrative Exam Narrative: Constitutional: Alert and oriented x3. Appears stated age. Normal body habitus. Head: Normocephalic, no trauma. Eyes: Pupils PERRL, Red reflex noted, EOM's intact. Eyelids symmetrical without lesions, discharge, or swelling. ENT: Bilateral TM's WNL, External ear normal to inspection, no mastoid TTP, swelling, or erythema, Nasal turbinates WNL, no nasal discharge. Normal dentition, Posterior pharynx WNL, no exudate. Chest: RRR, Normal S1, S2, distal pulses intact. Resp: Lungs clear to auscultation bilaterally, no wheezes, rales, or rhonchi. Abdomen: Soft, non-distended, Normoactive bowel sounds all 4 quads. Musculoskeletal: Normal gait, 5/5 strength to all four extremities. Skin: No suspicious rashes or lesions. Capillary refill less than 2 sec. Neurologic: Cranial nerves II-XII intact. Alert and oriented x 3. Motor: No deficits noted. Sensory: Intact bilaterally all 4 extremities. Reflexes: DTR's intact bilaterally.. Hematologic/Lymphatic: No ecchymosis, no lymphadenopathy. Course Vital Signs Vital signs: Vital Signs Temperature 36.9 C 06/06/22 18:14 Pulse 65 06/06/22 18:14 Respiratory Rate 18 06/06/22 18:14 Blood Pressure 127/64 06/06/22 18:14 Pulse Oximetry 95 06/06/22 18:14 Temperature 36.9 C 06/06/22 18:14 Temperature Source Tympanic 06/06/22 18:14 Pulse 65 06/06/22 18:14 Respiratory Rate 18 06/06/22 18:14 Respiratory Effort Normal, Non-Labored 06/06/22 18:16 Blood Pressure 127/64 06/06/22 18:14 Pulse Oximetry 95 06/06/22 18:14 Oxygen Delivery Method Room Air 06/06/22 18:14 Oxygen Flow Rate 0 06/06/22 18:14
[2022-06-06 19:40] LABS: Abs Immature Grans 0.01 10^3/uL (0.0-0.06); Absolute Basophil Count 0.02 10^3/uL (0.0-0.2); Absolute Eosinophil Count 0.05 10^3/uL (0.0-0.7); Absolute Lymphocyte Count 1.58 10^3/uL (1.2-3.4); Absolute Monocyte Count 0.56 10^3/uL (0.1-0.8); Absolute Neutrophil Count 3.44 10^3/uL (1.2-6.7); Basophils % 0.4; Eosinophils % 0.9; HCT 38.5 % (36.0-46.0); Immature Grans % 0.2; Lymphocytes % 27.9; MCHC 33.8 % (32.0-36.0); MCV 89 fL (80-95); MPV 10.3 fL (8.0-11.0); Monocytes % 9.9; Neutrophils % 60.7; Platelet Count 174 10^3/uL (130-400); RBC 4.33 10^6/uL (3.93-5.22); RDW 12.2 % (11.7-14.6); RDW-SD 39.6 fL; WBC 5.66 10^3/uL (4.4-10.8)
[2022-06-06 19:41] LABS: Lactate 0.7 mmol/L (0.6-1.4)
[2022-06-06 20:00] LABS: ALT 35 U/L (14-59); AST 34 U/L (15-37); Albumin 3.9 g/dL (3.4-5.0); Alkaline Phosphatase 140 U/L (46-116); BUN 19 mg/dL (7-18); Bilirubin, Total 0.6 mg/dL (0.2-1.0); CREATININE 1.4 mg/dL (0.55-1.02); Calcium 8.9 mg/dL (8.5-10.1); Chloride 96 mmol/L (98-107); Estimated GFR 36.87 (mL/min/1.73m2); Glucose 82 mg/dL (74-106); Potassium 4.8 mmol/L (3.5-5.1); Sodium 131 mmol/L (136-145); Total Protein 7.4 g/dL (6.4-8.2)
--- NOTE | 2022-06-06 21:07 | W.PM.HP.N ---
Date of service: 06/06/22 Time of Service: 21:07 Assessment and Plan Assessment and plan (1) Pneumoperitoneum: Status: Acute Assessment and plan: I was able to review the CAT scan images, and I agree that there is suspicion for a small amount of pneumoperitoneum just behind the pubic symphysis. The artifact from her pelvis repair makes this challenging to interpret. Otherwise, I do not see any real signs of inflammation. There is a fair amount of stool in the distal sigmoid colon and the rectum. Her exam and labs are certainly reassuring. I explained to her that pneumoperitoneum is typically caused by a hole in the gastrointestinal tract. Gastritis would put her at risk for peptic ulcer disease, but the rest of the CAT scan does not really seem to support that. And I suppose diverticulosis could be another explanation for either true pneumoperitoneum, or the appearance of that from a diverticula itself. We will repeat the white blood cell count today, and see how she feels through the morning time. In the meantime, started some broad-spectrum antibiotics that should cover most types of infections associated with pneumoperitoneum. History of Present Illness History of Present Illness Chief Complaint: Abdominal pain Narrative: Jhonny is an 87-year-old woman who is referred into the emergency department after outpatient CAT scan raise the possibility of pneumoperitoneum. She started complaining of abdominal pain, more on the right side of the lower abdomen a little over 1 week ago. As I understand, she was seen by her primary care physician, and diagnosed with a urinary tract infection because of some symptoms including dysuria as well as urinary frequency. Urine culture at that time grew E. coli, which was sensitive to Bactrim. She was treated with Bactrim. She completed that treatment. She returned to the office yesterday complaining of ongoing, and slightly increased pain in the suprapubic region, and slightly to the right side. A CT scan was ordered. That test was interpreted as a small amount of pneumoperitoneum in the suprapubic region without signs of appendicitis or diverticulitis (although she does have diverticular disease). She was referred into the emergency department for ongoing evaluation at that point. She reports the same history with regards to complaints as mentioned above when she presents to the emergency department. Vital signs are all normal. She has mild elevation of her serum creatinine, but otherwise normal labs, including a white blood cell count 5. By way of some additional history, although the character of this discomfort has been a little more intense than previous, it seems like her general abdominal symptoms have been quite longstanding. As best I can tell she underwent EGD, and colonoscopy in 2018. She had some features consistent with Sherwood's esophagus, as well as a hiatal hernia. She was then seen at [facility] by the gastroenterology service who made some recommendations regarding day-to-day management of constipation type symptoms. Review of Systems Constitutional Constitutional: Reports body ache(s), Denies fever(s) and Denies weight loss Eyes Eyes: Reports system reviewed and no additional complaints, except as documented Cardiovascular Cardiovascular: Denies chest pain and Denies dyspnea Respiratory Respiratory: Denies chest congestion, Denies cough and Denies dyspnea Gastrointestinal Gastrointestinal: Reports abdominal pain, Denies belching, Reports change in stool character, Denies dyspepsia and Denies vomiting Musculoskeletal Musculoskeletal: Reports muscle weakness Neurologic Neurologic: Denies behavioral changes and Reports memory loss Psychiatric Psychiatric: Denies behavioral changes and Reports memory loss [facility] All Active Problems Pneumoperitoneum (Acute) Constipation (Acute) Abdominal pain, LLQ (left lower quadrant) (Acute) Lumbar back pain (Acute) Right, without radiation RUQ abdominal pain (Acute) Dermatitis (Acute) Vaginitis, atrophic (Acute) Hyponatremia (Chronic) Multiple occasions last of which was 01/2021, 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 states she is unsure Chest pain Depressive disorder Diverticulitis (09/27/13) 07/28 Epigastric pain Essential hypertension (01/14/13) Family history of GI malignancy Family history of GI malignancy Gastroesophageal reflux disease with esophagitis 05-2020: EGD: metaplasia/no dysplasia EGD : reactive/chemical gastropathy/no H.Pylori/Oesophagus:neg. intestinal meta. or dysplasia History of tobacco use Hx of fracture of pelvis pt. 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 Daughter No problems noted. Brother No problems noted. Maternal Grandfather No problems noted. Paternal Grandfather No problems noted. Maternal Grandmother No problems noted. Paternal Grandfather No problems noted. Social History Smoking/Tobacco Use Status: Former Tobacco Use tobacco type: cigarettes Quit Date: 03/17/97 Second Hand Exposure: Yes Smoking risk assessment performed?: Yes Alcohol Intake: never Drug use: Never Substance use type: does not use Communication Needs: Hard of Hearing Do you need help understanding health information?: Often Pets and animals: No Sexually active: No Do you think of yourself as: straight/heterosexual Current gender identity: female What is your relationship status?: How often do you talk on the phone with friends or family?: decline to answer How often do you attend jewish or sikhism services?: decline to answer Do you belong to any clubs or organized social groups?: decline to answer Panel score (0-1 are the most socially isolated patients): 0 What type of physical activity do you participate in: walking Carri/Mandaen: No preference Special carri needs: No Drive intox 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 regional driver: No Do you feel safe at home: Yes Do you feel safe in your relationship?: Yes Meds Allergies and Home Medications Allergies Allergy/AdvReac Type Severity Reaction Status Date / Time ciprofloxacin [From Cipro] Allergy Intermediate Lips and Verified 06/05/22 10:47 face burn, feels shaky, arm tingly codeine AdvReac Intermediate Dizziness/L Verified 06/05/22 10:47 ightheade lovastatin AdvReac Intermediate myalgias Verified 06/05/22 10:47 oxycodone AdvReac Intermediate NAUSEA, GI Verified 06/05/22 10:47 UPSET azithromycin AdvReac cramping, Verified 06/05/22 10:47 anorexia doxycycline AdvReac Nausea, Verified 06/05/22 10:47 Vomiting hydrocodone AdvReac unknown Verified 06/05/22 10:47 Home Medications Medication Instructions Recorded Confirmed Type polyethylene glycol 3350 17 17 gm PO DAILY PRN constipation 06/18/19 06/06/22 Rx gram/dose oral powder (Miralax) #238 grams famotidine 20 mg tablet 20 mg PO QHS #90 tabs 11/13/21 06/06/22 Rx albuterol sulfate 90 mcg/actuation 1 - 2 inh inhalation Q6H PRN 02/26/22 06/06/22 Rx aerosol inhaler shortness of breath or wheezing #8.5 grams estradiol 0.01% (0.1 mg/gram) 1 g vaginal DAILY #42.5 grams 02/26/22 06/06/22 Rx vaginal cream ferrous sulfate 325 mg (65 mg 325 mg PO Q OTHER DAY #90 tabs 02/26/22 06/06/22 Rx iron) tablet metoprolol tartrate 25 mg tablet 25 mg PO BID #180 tab-caps 02/26/22 06/06/22 Rx omeprazole 40 mg capsule,delayed 40 mg PO DAILY #90 caps 02/26/22 06/06/22 Rx release ondansetron HCl 4 mg tablet 4 mg PO Q8H PRN nausea and 02/26/22 06/06/22 Rx vomiting #21 tabs simvastatin 5 mg tablet 5 mg PO QHS #90 tab-caps 02/26/22 06/06/22 Rx sulfamethoxazole 800 1 tab PO BID UTI #10 tabs 05/31/22 06/06/22 Rx mg-trimethoprim 160 mg tablet (Bactrim DS) Exam Const General: cooperative, comfortable and no acute distress Nutritional Appearance: thin Orientation: alert and awake Neck Neck: no lymphadenopathy Resp Effort & Inspection: normal respiratory effort and able to speak in complete sentences Auscultation: clear to auscultation bilaterally Cardio Jugular venous pressure: no JVD Rate: regular rate Rhythm: regular rhythm Heart Sounds: S1 normal and S2 normal GI Inspection: normal to inspection, non-distended and no visible herniation Palpation: soft, no guarding, no hernias and tender (Mild periumbilical tenderness. Little more so on the left side) Percussion: normal to percussion Auscultation: normal bowel sounds Other: There is a healed laparotomy scar Skin General skin exam: no rashes or lesions noted Results Imaging Abdomen CT scan report/results: report reviewed and image reviewed CT scan - pelvis: report reviewed and image reviewed Labs 06/06/22 19:32 06/06/22 19:32 Labs: Laboratory Results - last 24 hr 06/06/22 06/06/22 06/06/22 19:32 19:32 19:32 WBC 5.66 RBC 4.33 Hgb 13.0 Hct 38.5 MCV 89 MCH 30.0 MCHC 33.8 RDW 12.2 Plt Count 174 MPV 10.3 Immature Gran % 0.2 Neutrophils % 60.7 Lymphocytes % 27.9 Monocytes % 9.9 Eosinophils % 0.9 Basophils % 0.4 Nucleated RBC % 0.0 Absolute Neutrophils 3.44 Absolute Lymphocytes 1.58 Absolute Monocytes 0.56 Absolute Eosinophils 0.05 Absolute Basophils 0.02 VBG Lactate 0.7 Sodium 131 L Potassium 4.8 Chloride 96 L Carbon Dioxide 28.0 Anion Gap 7.0 BUN 19 H Creatinine 1.4 H Est GFR (CKD-EPI 2020) 36.87 Glucose 82 Calcium 8.9 Magnesium 2.0 Total Bilirubin 0.6 AST 34 ALT 35 Alkaline Phosphatase 140 H Total Protein 7.4 Albumin 3.9 Last Vital Signs Temp 98.4 F 06/06/22 18:14 Pulse 65 06/06/22 18:14 Resp 18 06/06/22 18:14 BP 127/64 06/06/22 18:14 Pulse Ox 95 06/06/22 18:14 Time Spent Time spent with Patient: 40-54 minutes Time was spent: preparing to see the patient(eg.review tests), ordering medications,tests, procedures and counseling the patient
[2022-06-06 21:14] LABS: Bilirubin Negative (Negative); Blood Negative (Negative); Clarity Clear (Clear); Glucose Negative (Negative); Ketones Negative (Negative); Leukocyte Esterase Negative (Negative); Nitrite Negative (Negative); Specific Gravity <= 1.005 (1.005-1.025); Urobilinogen 0.2 mg/dL (Up to 0.2)
[2022-06-06 23:02] LABS: Source Nasal/Nares
[2022-06-06 23:33] LABS: COVID-19 PCR Negative (Negative)
[2022-06-06] MEDS: Heparin 5,000 UNITS/ML VIAL 5000 UNITS SC (23:35)
[2022-06-06] MEDS: PIPERACILLIN/TAZO 3.375 GM in Normal Saline 50 ML IVPB (23:40)
[2022-06-07] VITALS: BP 140/61; PULSE 74; RESP 16; O2SAT 95
[2022-06-07 00:24] VITALS: BP 121/61; PULSE 67; RESP 16; TEMP 36.2; O2SAT 95
[2022-06-07] MEDS: Lactated Ringers 1,000 ML 75 ML IV ×2 (00:46→15:19)
[2022-06-07] MEDS: PIPERACILLIN/TAZO 3.375 GM in Normal Saline 50 ML IVPB ×3 (05:12→20:58)
[2022-06-07] MEDS: Normal Saline Flush 10 ML SYR IVP (05:13)
[2022-06-07 06:49] LABS: Abs Immature Grans 0.01 10^3/uL (0.0-0.06); Absolute Basophil Count 0.03 10^3/uL (0.0-0.2); Absolute Eosinophil Count 0.02 10^3/uL (0.0-0.7); Absolute Lymphocyte Count 1.15 10^3/uL (1.2-3.4); Absolute Monocyte Count 0.45 10^3/uL (0.1-0.8); Absolute Neutrophil Count 4.03 10^3/uL (1.2-6.7); Basophils % 0.5; Eosinophils % 0.4; HCT 36.6 % (36.0-46.0); HGB 12.5 g/dL (11.2-15.7); Immature Grans % 0.2; Lymphocytes % 20.2; MCH 30.2 pg (27.0-33.0); MCHC 34.2 % (32.0-36.0); MCV 88 fL (80-95); MPV 10.7 fL (8.0-11.0); Monocytes % 7.9; Neutrophils % 70.8; Platelet Count 162 10^3/uL (130-400); RBC 4.14 10^6/uL (3.93-5.22); RDW 12.2 % (11.7-14.6); RDW-SD 39.5 fL; WBC 5.69 10^3/uL (4.4-10.8)
[2022-06-07 06:58] LABS: Anion Gap 7.4 mmol/L (3-11); BUN 16 mg/dL (7-18); CO2 26.6 mmol/L (21.0-32.0); CREATININE 1.3 mg/dL (0.55-1.02); Calcium 9.1 mg/dL (8.5-10.1); Chloride 97 mmol/L (98-107); Glucose 77 mg/dL (74-106); Potassium 4.7 mmol/L (3.5-5.1); Sodium 131 mmol/L (136-145)
--- NOTE | 2022-06-07 08:15 | W.PM.PROGNOT ---
Date of Service Date of service: 06/07/22 Time of Service: 08:16 Assessment and Plan Assessment and plan (1) Pneumoperitoneum: Status: Acute Assessment and plan: Denies generalized abdominal pain. C/o epigastric pain, that is mild in nature. Will trial GI cocktail and protonix Will start clear liquid diet No leukocytosis Continue IV antibiotics Strongly encouraged activity OOB to include ambulation and sitting in the chair Pulmonary toilet Will proceed with medical management WBC remains normal. Cretinine has slightly improved Will advance diet (2) Lumbar back pain: Status: Acute Assessment and plan: Aqua K pack ordered to help alleviate, musculoskeletal discomfort She can use this PRN Subjective Subjective Interval history since last seen: Arrive with patient resting bed. She states that she is feeling better this morning. Her largest complaint is Right sided low back/hip pain. She states this becomes aggravated while in the kitchen and baking. She relates this discomfort to walking and bending during these activities. She states that the only abdominal discomfort she has epigastric discomfort that comes and goes. Exam Const General: cooperative, healthy appearing and comfortable Orientation: alert Resp Effort & Inspection: normal respiratory effort, no audible wheezes and no cough GI Inspection: normal to inspection and non-distended Palpation: soft, no guarding and tender in the epigastrum Back/Spine/Pelvis Other: on palpation, patient has a moderate amount of discomfort with palpation and deep tissue massage overlying the quadratus lumborm Objective Last Vital Signs Temp 36.2 C L 06/07/22 00:24 Pulse 67 06/07/22 00:24 Resp 16 06/07/22 00:24 BP 121/61 06/07/22 00:24 Pulse Ox 95 06/07/22 00:24 Laboratory Results - last 24 hr 06/06/22 06/06/22 06/06/22 19:32 19:32 19:32 WBC 5.66 RBC 4.33 Hgb 13.0 Hct 38.5 MCV 89 MCH 30.0 MCHC 33.8 RDW 12.2 Plt Count 174 MPV 10.3 Immature Gran % 0.2 Neutrophils % 60.7 Band Neutrophils % Lymphocytes % 27.9 Atypical Lymphs % Monocytes % 9.9 Eosinophils % 0.9 Basophils % 0.4 Metamyelocytes % Myelocytes % Promyelocytes % Other Cells % Nucleated RBC % 0.0 Absolute Neutrophils 3.44 Absolute Lymphocytes 1.58 Absolute Monocytes 0.56 Absolute Eosinophils 0.05 Absolute Basophils 0.02 RBC Morphology Polychromasia Hypochromasia Poikilocytosis Basophilic Stippling Anisocytosis Microcytosis Macrocytosis Spherocytes Tear Drop Cells Ovalocytes Stomatocytes Avina-Goldth[place]ite Bodies [place] Cells/Echinocytes Acanthocytes (Spur) Schistocytes VBG Lactate 0.7 Sodium 131 L Potassium 4.8 Chloride 96 L Carbon Dioxide 28.0 Anion Gap 7.0 BUN 19 H Creatinine 1.4 H Est GFR (CKD-EPI 2020) 36.87 Glucose 82 Calcium 8.9 Magnesium 2.0 Total Bilirubin 0.6 AST 34 ALT 35 Alkaline Phosphatase 140 H Total Protein 7.4 Albumin 3.9 Urine Color Urine Clarity Urine pH Ur Specific Gilby Urine Protein Urine Ketones Urine Blood Urine Nitrite Urine Bilirubin Urine Urobilinogen Ur Leukocyte Esterase Urine Glucose COVID-19 Source SARS-CoV-2 (PCR) 06/06/22 06/06/22 06/07/22 21:05 22:55 06:00 WBC RBC Hgb Hct MCV MCH MCHC RDW Plt Count MPV Immature Gran % Neutrophils % Band Neutrophils % Lymphocytes % Atypical Lymphs % Monocytes % Eosinophils % Basophils % Metamyelocytes % Myelocytes % Promyelocytes % Other Cells % Nucleated RBC % Absolute Neutrophils Absolute Lymphocytes Absolute Monocytes Absolute Eosinophils Absolute Basophils RBC Morphology Polychromasia Hypochromasia Poikilocytosis Basophilic Stippling Anisocytosis Microcytosis Macrocytosis Spherocytes Tear Drop Cells Ovalocytes Stomatocytes Avina-Goldth[place] Bodies [place] Cells/Echinocytes Acanthocytes (Spur) Schistocytes VBG Lactate Sodium Cancelled Potassium Cancelled Chloride Cancelled Carbon Dioxide Cancelled Anion Gap Cancelled BUN Cancelled Creatinine Cancelled Est GFR (CKD-EPI 2020) Cancelled Glucose Cancelled Calcium Cancelled Magnesium Total Bilirubin AST ALT Alkaline Phosphatase Total Protein Albumin Urine Color Yellow Urine Clarity Clear Urine pH 6.0 Ur Specific Gilby <= 1.005 Urine Protein Negative Urine Ketones Negative Urine Blood Negative Urine Nitrite Negative Urine Bilirubin Negative Urine Urobilinogen 0.2 Ur Leukocyte Esterase Negative Urine Glucose Negative COVID-19 Source Nasal/Nares SARS-CoV-2 (PCR) Negative 06/07/22 06/07/22 06/07/22 06:00 06:05 06:05 WBC Cancelled 5.69 RBC Cancelled 4.14 Hgb Cancelled 12.5 Hct Cancelled 36.6 MCV Cancelled 88 MCH Cancelled 30.2 MCHC Cancelled 34.2 RDW Cancelled 12.2 Plt Count Cancelled 162 MPV Cancelled 10.7 Immature Gran % Cancelled 0.2 Neutrophils % Cancelled 70.8 Band Neutrophils % Cancelled Lymphocytes % Cancelled 20.2 Atypical Lymphs % Cancelled Monocytes % Cancelled 7.9 Eosinophils % Cancelled 0.4 Basophils % Cancelled 0.5 Metamyelocytes % Cancelled Myelocytes % Cancelled Promyelocytes % Cancelled Other Cells % Cancelled Nucleated RBC % Cancelled 0.0 Absolute Neutrophils Cancelled 4.03 Absolute Lymphocytes Cancelled 1.15 L Absolute Monocytes Cancelled 0.45 Absolute Eosinophils Cancelled 0.02 Absolute Basophils Cancelled 0.03 RBC Morphology Cancelled Polychromasia Cancelled Hypochromasia Cancelled Poikilocytosis Cancelled Basophilic Stippling Cancelled Anisocytosis Cancelled Microcytosis Cancelled Macrocytosis Cancelled Spherocytes Cancelled Tear Drop Cells Cancelled Ovalocytes Cancelled Stomatocytes Cancelled Avina-Goldth[place]ite Bodies Cancelled [place] Cells/Echinocytes Cancelled Acanthocytes (Spur) Cancelled Schistocytes Cancelled VBG Lactate Sodium 131 L Potassium 4.7 Chloride 97 L Carbon Dioxide 26.6 Anion Gap 7.4 BUN 16 Creatinine 1.3 H Est GFR (CKD-EPI 2020) 40.30 Glucose 77 Calcium 9.1 Magnesium Total Bilirubin AST ALT Alkaline Phosphatase Total Protein Albumin Urine Color Urine Clarity Urine pH Ur Specific Gilby Urine Protein Urine Ketones Urine Blood Urine Nitrite Urine Bilirubin Urine Urobilinogen Ur Leukocyte Esterase Urine Glucose COVID-19 Source SARS-CoV-2 (PCR) Time Spent with Patient Time Spent with Patient: <25 minutes Time was spent: preparing to see the patient(eg.review tests), ordering medications,tests, procedures and counseling the patient
[2022-06-07 09:33] VITALS: BP 109/55; PULSE 72; RESP 16; TEMP 36.5; O2SAT 94
[2022-06-07] MEDS: Heparin 5,000 UNITS/ML VIAL 5000 UNITS SC ×2 (09:38→22:00)
[2022-06-07] MEDS: Pantoprazole 40 MG TABCR PO ×2 (09:38→20:58)
[2022-06-07] MEDS: Metoprolol 25 MG TAB PO ×2 (12:57→20:58)
--- NOTE | 2022-06-07 14:36 | INITIAL_ITS ---
- If Service Date Differs Date of service: 06/07/22 Time of Service: 14:36 Care Management Initial Assess REASON FOR HOSPITALIZATION:: Peritonitis PAST MEDICAL HISTORY/PAST SURGICAL HISTORY:: All Active Problems. Pneumoperitoneum (Acute). Constipation (Acute). Abdominal pain, LLQ (left lower quadrant) (Acute). Lumbar back pain (Acute). Right, without radiation. RUQ abdominal pain (Acute). Dermatitis (Acute). Vaginitis, atrophic (Acute). Hyponatremia (Chronic). 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 Elevated urine sodium with episode of hyponatremia evaluated at [facility] 2019. Anemia (Chronic). Pulmonary nodules (Chronic). GERD with esophagitis (Chronic). 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 Erosive gastritis (Chronic). DNR (do not resuscitate) (Chronic). Also DNI, POLST form per [facility] medical. Medical History. Abnormal [place] loss[place] horse; rib fracture; lacerated liver; fx-pelvis; perf. intestine. Atrophic vaginitis (08/19/11). Pt. states she is unsure. Chest pain. Depressive disorder. Diverticulitis (09/27/13). 07/28. Epigastric pain. Essential hypertension (01/14/13). Family history of GI malignancy. Family history of GI malignancy. Gastroesophageal reflux disease with esophagitis. : EGD: metaplasia/no dysplasia. EGD : reactive/chemical gastropathy/no H.Pylori/Oesophagus:neg. intestinal meta. or dysplasia. History of tobacco use. Hx of fracture of pelvis. pt. states she shattered her pelvis in 1970's. Hyperlipidemia. Hypomagnesemia. 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 06/20/1557-[id number] OF BULKING AGENT. Macular degeneration. Mixed incontinence (08/19/11). [facility] : pessary. Tubular adenoma. [place]\.: tubular adenoma ascending colon and in splenic flexure. 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 Surgical History. Abdominal hysterectomy. Arthroplasty of knee (05/27/12). LEFT - Pt denies knee replacement. Bilateral salpingectomy with oophorectomy. Bladder Surgery. Cholecystectomy. Colonoscopy - MAC (~02/2012). Colonoscopy - MAC (04/22/17). EGD - MAC (04/22/17). KNEE SURGERY (~05/2012) PREVIOUS FUNCTIONAL STATUS/SOCIAL/FAMILY SUPPORTS:: Cathy lives with her son in his single family home in [facility]. She also has her own home nearby but has been staying with him due to illness. Cathy has 4 other children, all daughters, who live in the area and who are helpful when needed. Cathy stated that she is independent with ADLs but does receive [employer] and fuel assistance. CURRENT FUNCTIONAL STATUS:: Cathy was sitting up in the chair when CM met with her. She stated that she is comfortable when she is not moving too much. She reported that she would prefer to return home when ready, but is not sure if she is going to have surgery yet. She stated that she would be agreeable to rehab, if indicated, but she is not ready to make the decision. She stated that she is living with her son, and all of her children are supportive, but Nancy would be the special effects person, if she couldn't make her own decisions. CM will continue to follow. ADVANCE DIRECTIVES:: [facility] on file Has patient been provided with info about the portal/API?: Yes Did the patient sign up for the portal?: No CODE STATUS:: Full Code ([facility] form indicates DNR/DNI) INSURANCE COVERAGE / FINANCIAL ISSUES:: [facility]/ [employer] senior supplemental ins CURRENT HOME/COMMUNITY SERVICES/EQUIPMENT:: Cathy receives fuel assistance and [employer] PRIMARY CARE PHYSICIAN:: Jason Busby POTENTIAL DISCHARGE NEEDS:: follow up with PCP and plan of care PATIENT/FAMILY EDUCATION NEEDS:: Review discharge instructions regarding activity levels and medications, discussion of self care needs including ask me three and goals of care. ANTICIPATED BARRIERS TO DISCHARGE:: None identified at this time. TRANSPORTATION:: via private vehicle with family/friends PLAN:: Anticipate Cathy will return home with home health services when medically cleared. She will follow up with her community providers and plan of care and transport with family. CM will continue to support Cathy and her discharge planning needs.
[2022-06-07 15:25] VITALS: BP 115/67; PULSE 67; RESP 16; TEMP 36.6; O2SAT 96
--- NOTE | 2022-06-07 16:07 | CHAPLAIN ---
Cathy was up in the chair reading a book when I visited. She told me that she's waiting for some results to discuss with the surgeon to see if she will need surgery as she has a hole in her stomach and they don't know if it will get bigger or not. She is thinking that if it's cancer, I don't want to have surgery. She lives in a house in [place] that belonged to her grandparents, and hasn't been kept up and doesn't have water, she told me. She's living with her son there. She has three daughters, the oldest one lives in [place] and has some time of dementia and isn't able to remember things. Cathy said she also has trouble remember things at times. She enjoys reading and gets large print books mailed to her from the [facility] in [place].
[2022-06-07] MEDS: Simvastatin 10 MG TAB 5 MG PO (22:00)
[2022-06-07 22:45] VITALS: BP 136/74; PULSE 63; RESP 16; TEMP 36.6; O2SAT 97
[2022-06-08] MEDS: PIPERACILLIN/TAZO 3.375 GM in Normal Saline 50 ML IVPB ×2 (04:08→11:41)
[2022-06-08 06:20] VITALS: BP 146/68; PULSE 63; RESP 16; TEMP 36.4; O2SAT 94
[2022-06-08 06:30] LABS: HCT 36.4 % (36.0-46.0); HGB 12.2 g/dL (11.2-15.7); MCH 29.8 pg (27.0-33.0); MCHC 33.5 % (32.0-36.0); MCV 89 fL (80-95); MPV 10.9 fL (8.0-11.0); Platelet Count 153 10^3/uL (130-400); RDW 12.3 % (11.7-14.6)
[2022-06-08] MEDS: Normal Saline Flush 10 ML SYR IVP (08:02)
[2022-06-08] MEDS: Lactated Ringers 1,000 ML 75 ML IV (08:03)
[2022-06-08] MEDS: Metoprolol 25 MG TAB PO ×2 (08:03→19:52)
[2022-06-08] MEDS: Pantoprazole 40 MG TABCR PO ×2 (08:03→19:51)
[2022-06-08] MEDS: Heparin 5,000 UNITS/ML VIAL 5000 UNITS SC ×2 (11:40→22:16)
--- NOTE | 2022-06-08 13:03 | PGE_ITS ---
Date of Service Date of service: 06/08/22 Time of Service: 12:15 Assessment and Plan Assessment and plan (1) Abdominal pain, LLQ (left lower quadrant): Status: Acute Assessment and plan: 87 yo woman who had acute on chronic abdominal discomfort/gi issues. Unclear etiology. Seems to have resolved. Having bowel function, HD stable. Plan: # Reg diet # PO Abx (empirically) # Stop all IV meds # discharge home tomorrow # bowel regimen since this is probably constipation secondary to chronic diverticular disease She really should have a repeat EGD and a repeat colonoscopy in my opinion. Her last c-scope was reportedly at [facility] in 2019. I don't have the actual report, but mentioned on a discharge paper in this EMR is: Family history of CR cancer, Adenomatous polyps were removed She also has a scope from 2011 which mentions a tortuous sigmoid colon with diverticular disease. EGD was at least 3 years ago and mentions either stricture or schatski ring in setting of chronic reflux and possibly Sherwood's esophagus. Patient herself says she was told she is going to get esophagus cancer. This is all outpatient stuff . . . but in my opinion, she should be set up for c-scope and EGD in the outpatient setting in the next couple of months because she otherwise seems quite healthy. Subjective Subjective Interval history since last seen: No complaints. No abdominal pain. Having bowel function. No fevers. Exam Narrative Exam Narrative: Gen: nontoxic and comfortable Neuro: AxOx3 Psych: Good mood and affect, good insight and understanding Abd: Soft, nondistended, nontender Objective Last Vital Signs Temp 97.5 F L 06/08/22 06:20 Pulse 63 06/08/22 06:20 Resp 16 06/08/22 06:20 BP 146/68 H 06/08/22 06:20 Pulse Ox 94 06/08/22 06:20 Laboratory Results - last 24 hr 06/08/22 06/08/22 05:40 05:40 WBC 4.80 RBC 4.10 Hgb 12.2 Hct 36.4 MCV 89 MCH 29.8 MCHC 33.5 RDW 12.3 Plt Count 153 MPV 10.9 C-Reactive Protein 0.20 Time Spent with Patient Time Spent with Patient: 25-34 minutes Time was spent: counseling the patient
[2022-06-08 15:38] VITALS: BP 106/60; PULSE 62; RESP 16; TEMP 36.5; O2SAT 98
[2022-06-08 19:44] VITALS: BP 121/68; PULSE 65; RESP 16; TEMP 36.5; O2SAT 96
[2022-06-08] MEDS: Amoxicillin 875/Clav. 125 TAB PO (19:50)
[2022-06-08] MEDS: Acetaminophen 325 MG TAB 650 MG PO (19:51)
[2022-06-08] MEDS: Simvastatin 10 MG TAB 5 MG PO (22:16)
[2022-06-08 23:14] VITALS: BP 138/70; PULSE 55; RESP 16; TEMP 36.4; O2SAT 96
[2022-06-09 06:15] VITALS: BP 155/73; PULSE 55; RESP 16; TEMP 36.5; O2SAT 96
[2022-06-09] MEDS: Amoxicillin 875/Clav. 125 TAB PO (08:51)
[2022-06-09] MEDS: Docusate Sodium 100 MG CAP PO (08:51)
[2022-06-09] MEDS: Acetaminophen 325 MG TAB 650 MG PO (08:51)
[2022-06-09] MEDS: Metoprolol 25 MG TAB PO (08:51)
[2022-06-09] MEDS: Pantoprazole 40 MG TABCR PO (08:51)
--- NOTE | 2022-06-09 10:04 | W.PM.PROGNOT ---
Date of Service Date of service: 06/09/22 Time of Service: 10:25 Assessment and Plan Assessment and plan (1) Constipation: Status: Acute Assessment and plan: 87 yo woman with resolved abdominal pain. HD stable. No leukocytosis or fevers. Good BF, tolerating diet and no significant subj complaints. Benign abdominal exam. PLAN: DC home on reg diet and with oral Abx to complete a 10-day course. Can followup outpatient to consider another c-scope and EGD Subjective Subjective Interval history since last seen: No complaints. Having bowel function. Tolerating diet. No fevers. Exam Narrative Exam Narrative: Gen: Nontoxic, comfortable and interactive Neuro: AxOx3 Psych: Good mood and affect, history seems a little off, but insight and understanding is reasonable. Abdomen: Soft, nondistended and nontender. Objective Last Vital Signs Temp 97.7 F 06/09/22 06:15 Pulse 55 L 06/09/22 06:15 Resp 16 06/09/22 06:15 BP 155/73 H 06/09/22 06:15 Pulse Ox 96 06/09/22 06:15 Time Spent with Patient Time Spent with Patient: 25-34 minutes Time was spent: counseling the patient and care coordination
--- NOTE | 2022-06-09 15:14 | PDOC.CMDIS ---
- If Service Date Differs Date of service: 06/09/22 Time of Service: 15:14 LACE Index Scoring Tool - Questions: Length of Stay (in days): 3 Acuity (Admit via E.D.?): Yes E.D. Visits: 3 - Answers: Total Score: 9 Risk of Readmission: Low Risk Care Management Discharge Reason for Hospitalization: Peritonitis Discharge Plan: Cathy returned home today with no new services. She was driven home via private vehicle by family. She will follow up with her PCP and discharge plan of care. Patient/Family Education Needs: Review discharge instructions and limitations, discussion of self care needs including ask me three.
--- NOTE | 2022-06-10 07:27 | W.PM.DS.N ---
Date of service: 06/09/22 Time of Service: 11:30 DS: Diagnosis Discharge Diagnosis (1) Constipation: Status: Acute Discharge Plan Disposition Patient Disposition: Home Condition: Good Discharge Details Reason For Visit: Peritonitis Admit Date/Time: 06/06/22 21:14 Admit Provider: Jasen Lanier Attending Provider: Jasen Lanier Primary Care Provider: Jason Huff Hospital Course Hospital Course: Patient had abdominal pain and CT concerning for sigmoid diverticulitis / possible perforation. She was given Abx and her symptoms resolved. She was discharged home on oral Abx and will followup with PCP. Separately I did probation counselor her to seek outpatient colonoscopy EGD in followup, even though she is 87 yo. Home Meds and New Rx's Prescriptions: New amoxicillin-pot clavulanate 875-125 mg Tablet 1 tab PO BID Qty: 10 0RF Continued polyethylene glycol 3350 [Miralax] 17 gram/dose powder 17 gm PO DAILY PRN (Reason: constipation) Qty: 238 2RF Hold Instructions: Home Medication placed on hold at Doctor's office Rx Instructions: Mix 17g (heaping tablespoon) of powder in 8 oz liquid once a day for constipation famotidine 20 mg tablet 20 mg PO QHS Qty: 90 3RF sulfamethoxazole-trimethoprim [Bactrim DS] 800-160 mg tablet 1 tab PO BID Qty: 10 0RF albuterol sulfate 90 mcg/actuation HFA aerosol inhaler 1 - 2 inh IH Q6H PRN (Reason: shortness of breath or wheezing) Qty: 8.5 6RF estradiol 0.01 % (0.1 mg/gram) cream 1 g vaginal DAILY Qty: 42.5 2RF Rx Instructions: local application daily for one week and then 3 times per week ferrous sulfate 325 mg (65 mg iron) tablet 325 mg PO Q OTHER DAY Qty: 90 3RF metoprolol tartrate 25 mg tablet 25 mg PO BID Qty: 180 3RF omeprazole 40 mg capsule,delayed release(DR/EC) 40 mg PO DAILY Qty: 90 2RF ondansetron HCl 4 mg tablet 4 mg PO Q8H PRN (Reason: nausea and vomiting) Qty: 21 0RF simvastatin 5 mg tablet 5 mg PO QHS Qty: 90 3RF Discharge Instructions Additional Instructions: Medications:? Take antibiotics for the next 5 days.? You can take probiotics/yogurt with it if you would like. Resume all of your other home medications. Diet:? Regular - eat anything you like and enjoy. Pain:? Mild discomfort will persist but pain should not be worsening.? It will slowly improve and go away. Only Tylenol should be needed.? Call MD if anything is getting worse or for pain not controlled with Tylenol.? Activity:? Light-duty as tolerated with absolutely no strenuous or heavy lifting/pulling/pushing for next few weeks. Stand Alone Forms: Nursing Discharge Form Referrals: Jason Huff DIE SET UP WORKER [Primary Care Provider] - (Please keep your appointment you already made ) Activity:: Activity as Tolerated Equipment/Supplies:: No Equipment Needed Diet:: Normal Diet Discharge Orders Discharge Orders: Discharge Order (Routine); Ordered 06/09/22 Ordered By: Arnol Ramírez Discharge Data Discharge Date/Time-TO BE ENTERED AT DEPARTURE: 06/09/22 12:10 DS: Summary Time Spent with Patient providing and/or coordinating discharge services: Greater than 30 minutes Status at Discharge Functional status at discharge: independent ambulation Overall status at discharge: patient is back to baseline Mental Status: mental status grossly normal Speech and Movement: speech and movement normal Mood: congruent mood Affect: normal affect Exam Psych Mental Status: mental status grossly normal Speech and Movement: speech and movement normal Mood: congruent mood Affect: normal affect DS: Data Vitals/I&O Vitals and I&O: Vital Signs Temperature 97.7 F 06/09/22 06:15 Temperature Source Tympanic 06/09/22 06:15 Pulse 55 L 06/09/22 06:15 Pulse Rhythm Regular 06/09/22 09:57 Respiratory Rate 16 06/09/22 06:15 Respiratory Effort Normal 06/09/22 09:57 Respiratory Depth Normal 06/09/22 09:57 Respiratory Pattern Normal 06/09/22 09:57 Blood Pressure 155/73 H 06/09/22 06:15 Pulse Oximetry 96 06/09/22 06:15 Oxygen Delivery Method Room Air 06/09/22 06:15 Oxygen Flow Rate 0 06/09/22 06:15 Pain Level 2 06/08/22 22:55 Intake & Output 06/09/22 06/09/22 06/10/22 11:59 23:59 11:59 Intake Total 250 / 250 Balance 250 / 250 Intake: Oral 250 / 250 Other: Urine Color Yellow Urine Appearance Clear Voiding Methods Toilet PFSH All Active Problems Constipation (Acute) RUQ abdominal pain (Acute) Dermatitis (Acute) Vaginitis, atrophic (Acute) Hyponatremia (Chronic) Multiple occasions last of which was 01/2021, 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 states she is unsure Chest pain Depressive disorder Diverticulitis (09/27/13) 07/28 Epigastric pain Essential hypertension (01/14/13) Family history of GI malignancy Family history of GI malignancy Gastroesophageal reflux disease with esophagitis : EGD: metaplasia/no dysplasia EGD : reactive/chemical gastropathy/no H.Pylori/Oesophagus:neg. intestinal meta. or dysplasia History of tobacco use Hx of fracture of pelvis pt. 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 Daughter No problems noted. Brother No problems noted. Maternal Grandfather No problems noted. Paternal Grandfather No problems noted. Maternal Grandmother No problems noted. Paternal Grandfather No problems noted. Social History Smoking/Tobacco Use Status: Former Tobacco Use tobacco type: cigarettes Quit Date: 03/17/97 Second Hand Exposure: Yes Smoking risk assessment performed?: Yes Alcohol Intake: never Drug use: Never Substance use type: does not use Communication Needs: Hard of Hearing Do you need help understanding health information?: Often Pets and animals: No Sexually active: No Do you think of yourself as: straight/heterosexual Current gender identity: female What is your relationship status?: How often do you talk on the phone with friends or family?: decline to answer How often do you attend cheondoism or hinduism services?: decline to answer Do you belong to any clubs or organized social groups?: decline to answer Panel score (0-1 are the most socially isolated patients): 0 What type of physical activity do you participate in: walking Carri/Cheondoism: No preference Special carri needs: No Drive intox 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 putaway driver: No Do you feel safe at home: Yes Do you feel safe in your relationship?: Yes Time Spent with Patient Time Spent with Patient: <45 minutes Time was spent: preparing to see the patient(eg.review tests), obtaining and/or reviewing separately otained hiistory, indepentently interpreting results and counseling the patient
== END 2022-06-09 12:10 | disposition home or self-care (01) ==
LOC: ER 23:32 → MS 23:58
PROVIDERS: Surgery; Admitting Provider Surgery; Emergency Provider Registered Nurse Emergency; PCP Nurse Practitioner Family; Visit Provider Surgery
DX: K59.00 Constipation, unspecified (principal); K66.8 Other specified disorders of peritoneum; J44.9 Chronic obstructive pulmonary disease, unspecified; K22.70 Barrett's esophagus without dysplasia; I10 Essential (primary) hypertension; K29.70 Gastritis, unspecified, without bleeding; Z87.891 Personal history of nicotine dependence; R10.11 Right upper quadrant pain; K57.30 Diverticulosis of large intestine without perforation or abscess without bleeding; K44.9 Diaphragmatic hernia without obstruction or gangrene; R10.32 Left lower quadrant pain; M54.50 Low back pain, unspecified; D64.9 Anemia, unspecified; Z66 Do not resuscitate; K21.00 Gastro-esophageal reflux disease with esophagitis, without bleeding; R91.8 Other nonspecific abnormal finding of lung field; Z80.0 Family history of malignant neoplasm of digestive organs
CPT/HCPCS: 36415; 80048; 80053; 85027; 87635; 96365; 96366; 96372; 99221; 99231; 99239; 99285; 74177; 81003; 83605; 83735; 85025; 86140; G0378; J1644; J2543; J3490

== ENCOUNTER 2022-06-28 17:07 | Outpatient (REF) | payer MEDICARE, SELFPAY ==
[2022-06-28 21:01] LABS: Anion Gap 5.9 mmol/L (3-11); BUN 19 mg/dL (7-18); CO2 29.1 mmol/L (21.0-32.0); CREATININE 0.9 mg/dL (0.55-1.02); Calcium 9.1 mg/dL (8.5-10.1); Chloride 102 mmol/L (98-107); Estimated GFR 62.65 (mL/min/1.73m2); Glucose 101 mg/dL (74-106); Potassium 4.8 mmol/L (3.5-5.1); Sodium 137 mmol/L (136-145)
== END 2022-06-28 17:08 | disposition home or self-care (01) ==
LOC: LBN 17:07
PROVIDERS: PCP Nurse Practitioner Family; Visit Provider Nurse Practitioner Family
DX: E87.1 Hypo-osmolality and hyponatremia (principal); I10 Essential (primary) hypertension
CPT/HCPCS: 80048

== ENCOUNTER → 2022-07-08 13:24 | Outpatient (BNVA) | payer MEDICARE, SELFPAY | PROVIDERS: PCP Nurse Practitioner Family; Referring Provider Nurse Practitioner Family; Visit Provider Surgery | DX: K22.70 Barrett's esophagus without dysplasia (principal); K57.80 Diverticulitis of intestine, part unspecified, with perforation and abscess without bleeding; R10.11 Right upper quadrant pain; K21.00 Gastro-esophageal reflux disease with esophagitis, without bleeding; K57.92 Diverticulitis of intestine, part unspecified, without perforation or abscess without bleeding; D12.6 Benign neoplasm of colon, unspecified; D64.9 Anemia, unspecified | CPT/HCPCS: 99213 ==

== ENCOUNTER 2022-07-18 09:26 | Day surgery (SDC) | payer MEDICARE, SELFPAY ==
--- NOTE | 2022-07-17 21:45 | W.PM.DSUDISC ---
Date of service: 07/18/22 Time of Service: 12:10 Discharge Plan Disposition Patient Disposition: Home Condition: Good Discharge Details Reason For Visit: Diagnostic EGD and colonoscopy Attending Provider: Jasen Lanier Primary Care Provider: Jason Huff Home Meds and New Rx's Prescriptions: Continued famotidine 20 mg tablet 20 mg PO QHS Qty: 90 3RF ICaps AREDS2 (copper citrate) 250 mg-200 unit -12.5 mg-1 mg tablet 1 tab PO BID albuterol sulfate 90 mcg/actuation HFA aerosol inhaler 1 - 2 inh IH Q6H PRN (Reason: shortness of breath or wheezing) Qty: 8.5 6RF estradiol 0.01 % (0.1 mg/gram) cream 1 g vaginal DAILY Qty: 42.5 2RF Rx Instructions: local application daily for one week and then 3 times per week metoprolol tartrate 25 mg tablet 25 mg PO BID Qty: 180 3RF omeprazole 40 mg capsule,delayed release(DR/EC) 40 mg PO DAILY Qty: 90 2RF ondansetron HCl 4 mg tablet 4 mg PO Q8H PRN (Reason: nausea and vomiting) Qty: 21 0RF simvastatin 5 mg tablet 5 mg PO QHS Qty: 90 3RF Discontinued polyethylene glycol 3350 [Miralax] 17 gram/dose powder 17 gm PO DAILY PRN (Reason: constipation) Qty: 238 2RF Hold Instructions: Home Medication placed on hold at Doctor's office Rx Instructions: Mix 17g (heaping tablespoon) of powder in 8 oz liquid once a day for constipation polyethylene glycol 3350 17 gram/dose powder 238 g PO ONCE Qty: 238 0RF Rx Instructions: take per colonoscopy instructions bisacodyl [Dulcolax (bisacodyl)] 5 mg tablet,delayed release (DR/EC) 5 mg PO ONCE Qty: 4 0RF Rx Instructions: take per colonoscopy instructions Discharge Instructions Additional Instructions: Cathy, we were able to complete your upper endoscopy today without any difficulty. You have a hiatal hernia. This occurs when a portion of your stomach is slipped up above your diaphragm (breathing muscle). Typical symptoms of this include indigestion, and mild discomfort with swallowing. I am certain it has been there for some time. I do not recommend any specific treatments for this. Your colonoscopy was a little bit more challenging. I was able to find the mass that you feel when you have your bowel movements. I removed this. He will take a week or so for me to get the results of the pathology report, but I will let you know as soon as I have them. As we knew about before, you also have extensive diverticulosis. I was unable to safely pass the scope along the length of your entire colon. As we talked about before, I suspect that the diverticulosis is the most likely source of the abdominal pain that you experienced in the past. We have made an arrangement for a follow-up visit on the at 10 AM. I look forward to seeing you then. If you have any questions at all, please do not hesitate to call. 1. If tolerated, consume a soft, low fiber diet for 1-2 days. [address] Do not drive, drink alcohol, operate machinery, make critical decisions, or do activities that require coordination or balance for 24 hours. 3. Because air was put into your colon during the procedure, expelling air from your rectum (passing gas or farting) is normal. 4. You may not have a bowel movement for 1-3 days because of the colonoscopy prep. This is normal. 5. You may experience a sore throat for 24 to 48 hours. You may use throat lozenges or gargle with warm salt water to relieve the discomfort. 6. Because air was put into your stomach during the procedure, you may experience some belching. 7. Go directly to the emergency room if you notice any of the following: Develop chills (warm to touch), or if you have a thermometer and your temperature is above 101 Difficulty breathing or difficultly swallowing Persistent vomiting Severe abdominal pain, other than gas cramps Severe chest pain Black, tarry stools Any bleeding ? exceeding one tablespoon 8. Call your physician if the site where your intravenous was started becomes red, swollen, painful, and warm to touch. 9. Your physician has reviewed your pre-procedure medications. Please continue to take those medications as previously ordered. You will be given specific information/education regarding any changes to your medications before leaving. Stand Alone Forms: Anesthesia Discharge Inst.[place] (DSU) Activity:: Activity as Tolerated Diet:: As Tolerated Discharge Orders Discharge Orders: Discharge Order (Routine); Ordered 07/17/22 Ordered By: Jasen Lanier DS: Diagnosis Discharge Diagnosis (1) Pneumoperitoneum: Status: Resolved Asessment and Plan: Upper endoscopy showed hiatal hernia, otherwise normal Colonoscopy has extensive sigmoid diverticulosis that extends from approximately 20 cm to approximately 35 cm. I was not able to extend the scope beyond this. Additionally, there was a mass just above the dentate line. I removed this with hot snare polypectomy. We will follow-up in the office in the next 2 weeks to discuss the pathology results.
--- NOTE | 2022-07-17 21:47 | W.PM.ENDDOP ---
Date of service: 07/18/22 Time of Service: 12:50 Endoscopy Report DATE OF PROCEDURE: 07/18/22 PRE-OP DIAGNOSIS: Pneumoperitoneum POST-OP DIAGNOSIS: other (Hiatal hernia; anal rectal mass, diverticulosis) PROCEDURE: EGD and sigmoidoscopy SURGEON: Jasen Lanier ANESTHESIA TYPE: General:No Airway ESTIMATED BLOOD LOSS: 10 PATHOLOGY: other (Anal mass) COMPLICATIONS: None DISPOSITION: same day INDICATIONS: Jhonny is an 87-year-old woman who was hospitalized in the earlier portion of this year with peritonitis and pneumoperitoneum. The exact site of the perforation was uncertain. The differential diagnosis included peptic ulcer disease and diverticulosis, this malignancy in the upper or lower portion of the gastrointestinal tract. Therefore, were proving forward with bidirectional endoscopy in an effort to rule out treatable causes of pneumoperitoneum. PREP: Miralax/Dulcolax PROCEDURE START TIME: 11:20 PROCEDURE END TIME: 11:53 FINDINGS: Hiatal hernia, anorectal mass, diverticulosis PROCEDURE DESCRIPTION: After the initiation of monitored anesthetic care, and with the assistance of a bite block, I advanced a standard gastroscope through the mouth past the hypopharynx and into the esophagus.? Under the direct vision of the scope, I advanced down the esophagus into the stomach. There is a large hiatal hernia. GE junction and Z-line were normal-appearing. Once I entered the stomach, I performed a brief inspection, followed by retroflexion towards the gastric cardia. There was no evidence of any ulceration or pathology around the edge of the hiatal hernia. After that, I gently advanced the scope around the incisura angularis and examined the pylorus.? This also appeared normal.? Next, I advanced the scope through the pylorus into the duodenum.? The mucosa was pink and healthy appearing.? There were no abnormalities.? I was able to visualize bile draining into the duodenum through the ampulla Vater. ?Next, I began retracting the endoscope.? I then gently desufflated some of the stomach, and withdrew the endoscope into the distal esophagus. ?Finally, I withdrew the scope along the length of the esophagus taking great care to examine the entirety of the mucosa.? I did not appreciate any abnormalities. We then rolled Cathy into left lateral decubitus position, I began by performing an external anorectal exam.? Perineum and skin were normal, as was the anal verge.? There was no evidence of external hemorrhoids.? Next, I performed a digital rectal exam.? There is a palpable mass. It can prolapse into the anal canal. Appears to arise from just above the dentate line in the area of the anal rectal junction next, I advanced a colonoscope into the rectal vault.? I performed retroflexion.? The base of the mass is just evidence at the top of the anal canal. I did not see signs of pathologic internal hemorrhoids.? Using insufflation, I then advanced the colonoscope beyond the rectal folds and into the sigmoid colon. The quality of the prep was excellent. There is extensive sigmoid diverticulosis extending from about 20 cm upwards to 35 cm above the anal verge. It was extremely challenging to navigate. The diverticula are [place] and cavernous. I was not able to safely advance the colonoscope of 35 cm, as the true lumen of the colon was impossible to identify. At that point, I withdrew the colonoscope, and gently inserted a fiberoptic lighted anoscope. Again, I was able to visualize the previously mentioned mass. It was pedunculated. Obvious ulceration. The origin of it appeared to be just at the top of the anal column. I was able to excise it with energized snare polypectomy. There was no bleeding from the base. Although the overwhelming majority of it is excised, it is difficult to say if the base is normal tissue. At that point, I withdrew the endoscope. Met with the patient and her daughter in the recovery unit and explained all the findings. We will follow-up on the pathology report and discussed the rest of the plans once the pathology is resulted.
[2022-07-18 10:10] VITALS: BP 162/67; PULSE 60; RESP 16; TEMP 36.6; O2SAT 96
--- NOTE | 2022-07-18 10:44 | ANES.PREOP_ITS ---
General Info Date of Service Date Performed: 07/18/22 Height: 5 ft Weight: 54.7 kg Body Mass Index (BMI): 23.5 Surgical Procedure: Operation Date: 07/18/22 11:35 Proposed Procedure Side Surgeon p Colonoscopy/Gastroscopy Jasen Lanier MD Meds Allergies and Home Medications Allergies Allergy/AdvReac Type Severity Reaction Status Date / Time ciprofloxacin [From Cipro] Allergy Intermediate Lips and Verified 07/18/22 10:22 face burn, feels shaky, arm tingly codeine AdvReac Intermediate Dizziness/L Verified 07/18/22 10:22 ightheade lovastatin AdvReac Intermediate myalgias Verified 07/18/22 10:22 oxycodone AdvReac Intermediate NAUSEA, GI Verified 07/18/22 10:22 UPSET azithromycin AdvReac cramping, Verified 07/18/22 10:22 anorexia doxycycline AdvReac Nausea, Verified 07/18/22 10:22 Vomiting hydrocodone AdvReac unknown Verified 07/18/22 10:22 Home Medication Medication Instructions Recorded albuterol sulfate 90 mcg/actuation 1 - 2 inh inhalation Q6H PRN 02/26/22 aerosol inhaler shortness of breath or wheezing #8.5 grams estradiol 0.01% (0.1 mg/gram) 1 g vaginal DAILY #42.5 grams 02/26/22 vaginal cream metoprolol tartrate 25 mg tablet 25 mg PO BID #180 tab-caps 02/26/22 omeprazole 40 mg capsule,delayed 40 mg PO DAILY #90 caps 02/26/22 release ondansetron HCl 4 mg tablet 4 mg PO Q8H PRN nausea and 02/26/22 vomiting #21 tabs simvastatin 5 mg tablet 5 mg PO QHS #90 tab-caps 02/26/22 famotidine 20 mg tablet 20 mg PO QHS #90 tabs 06/28/22 vit C 250 mg-vit E 200 unit-zinc 1 tab PO BID 07/08/22 12.5 mg-copper 1 qc-obg-qtuoen tablet (ICaps AREDS2 (copper citrate)) Current Visit Medications: Current Medications Generic Name Dose Route Start Last Admin Trade Name Freq PRN Reason Stop Dose Admin Hyoscyamine Sulfate 0.125 mg 07/17/22 21:49 Hyoscyamine 0.125 Mg Sl/Oral/Chew SL DIRECTED PRN Ringer's Solution 1,000 mls @ 80 mls/hr 07/18/22 06:00 IV 08/16/22 23:59 INFUSION [facility] IV Miscellaneous Supplies 1 each 07/18/22 06:00 Iv Access IV 08/16/22 23:59 DIRECTED [facility] Ondansetron HCl 4 mg 07/17/22 21:49 Ondansetron 4 Mg/2 Ml Vial IVP Q4H PRN PRN Nausea / Vomiting Sodium Chloride 0 ml 07/18/22 06:00 Normal Saline Flush 10 Ml Syr IV 08/16/22 23:59 PRN PRN Sodium Chloride 0 ml 07/18/22 06:00 Normal Saline 10 Ml Vial IJ 08/16/22 23:59 DIRECTED PRN Sterile Water 0 ml 07/18/22 06:00 Water,Injection,Sterile 10 Ml Vial IJ 08/16/22 23:59 DIRECTED PRN PFSH Active Problems Active Problems: Problem Status Onset Code Perforated diverticulum K57.80 RUQ abdominal pain R10.11 Dermatitis L30.9 Vaginitis, atrophic N95.2 Hyponatremia E87.1 Anemia D64.9 Pulmonary nodules R91.8 GERD with esophagitis K21.00 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 states she is unsure Chest pain Depressive disorder Diverticulitis (09/27/13) 07/28 Epigastric pain Essential hypertension (01/14/13) Family history of GI malignancy Family history of GI malignancy Gastroesophageal reflux disease with esophagitis : EGD: metaplasia/no dysplasia EGD : reactive/chemical gastropathy/no H.Pylori/Oesophagus:neg. intestinal meta. or dysplasia History of tobacco use Hx of fracture of pelvis pt. 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) Surgical History Surgical History Abdominal hysterectomy Arthroplasty of knee (05/27/12) LEFT - Pt denies knee replacement Bilateral salpingectomy with oophorectomy Bladder Surgery Cholecystectomy Colonoscopy - MAC (~02/2012) Colonoscopy - MAC (04/22/17) EGD - MAC (04/22/17) KNEE SURGERY (~05/2012) Tobacco Smoking/Tobacco Use Status: Former Tobacco Use Passive smoking exposure: Yes Second hand exposure: Yes Alcohol Alcohol Intake: never Substance Use Substance use: Never Substance use type: does not use Vital Signs and Lab Results Vital Signs Most Recent Vital Signs in EMR: Most Recent Vital Signs Temp Pulse Resp BP Pulse Ox 36.6 C 60 16 162/67 H 96 07/18/22 10:10 07/18/22 10:10 07/18/22 10:10 07/18/22 10:10 07/18/22 10:10 Lab Results Blood Type / Crossmatch: No Data to Display Complete Blood Count: No Data to Display Complete Metabolic Panel: Sodium 137 mmol/L (136-145) 06/28/22 14:36 Potassium 4.8 mmol/L (3.5-5.1) 06/28/22 14:36 Chloride 102 mmol/L (98-107) 06/28/22 14:36 Carbon Dioxide 29.1 mmol/L (21.0-32.0) 06/28/22 14:36 BUN 19 mg/dL (7-18) H 06/28/22 14:36 Creatinine 0.9 mg/dL (0.55-1.02) 06/28/22 14:36 Est GFR (CKD-EPI 2020) 62.65 (mL/min/1.73m2) 06/28/22 14:36 Calcium 9.1 mg/dL (8.5-10.1) 06/28/22 14:36 Glucose 101 mg/dL (74-106) 06/28/22 14:36 Liver Function Panel: No Data to Display Coagulation Panel: No Data to Display Cardiac Panel: No Data to Display Arterial Blood Gas: No Data to Display Venous Blood Gas: No Data to Display Pancreas Panel: No Data to Display Thyroid Panel: No Data to Display Infectious Disease: No Data to Display Blood Cultures: No Data to Display Toxicology Panel: No Data to Display Imaging and Studies Imaging and Studies Study information below may be from another EMR and interpreted by another provider. Please see original notes in EMR for more complete details. EKG Summary: 01/05 Conclusion Sinus rhythm...normal P axis, V-rate 60- 99 Left atrial enlargement...P, P'>60mS, <-0.15mV V1 Anesthesia Assessment and Plan Anesthesia History Personal History: No History of Anesthesia Complications Family History: No Family History of Anesthesia Complications Exercise Tolerance Exercise Tolerance: Metabolic Equivalents>4 Pertinent Negatives Pertinent Negatives: No Symptoms of GERD Cardiac & Pulmonary Exam Cardiac Exam: Normal S1/S2 Heart Sounds Pulmonary Exam: Clear Bilateral Breath Sounds Implantable Cardiac Device Does patient have a Pacemaker or an ICD?: No Airway Exam Known Difficult Airway: No Mallampati Class: 3 Mouth Opening: Normal (> 3cm) Thyromental Distance: Greater than 3 cm Neck Range of Motion: Full ROM Neck Circumference: Normal Teeth Condition: Normal Dentition and Removable Dentures/Plates Upper ASA Classification ASA Score: ASA 3 Emergency Case?: No NPO Status NPO Status: NPO Clears >2 hours, Solids >8 hours Anesthesia Plan Resuscitation Status: Full Code Anesthesia Technique: General Anesthesia Airway Planned: Natural Airway Monitors Used: Standard Monitors
[2022-07-18] MEDS: Lactated Ringers 1,000 ML 80 ML IV (10:45)
[2022-07-18 11:08] VITALS: BMI 23.5
--- NOTE | 2022-07-18 11:50 | BOWEL_PTH ---
PATIENT: Cathy Franklin LOC: [facility] U#:[id number] AGE/SX: 87/F ROOM: RE07/18/[address]: Jasen Lanier MD : [id number] BED: DIS: 07/18/2022 SPEC #: [id number] RECD: 07/18/22 13:04 STATUS: AMADOU RE #: [id number] HANS: 07/18/22 11:[address]: Jasen Lanier DEPT: Surgical Specimen RECD BY: Katia Wang ENTERED: 07/18/22 13:05 SP TYPE: Bowel OTHR DR: Jason Hewitt DNP Tissues: 1 - BIOPSY BOWEL Procedures: GROSS AND MICRO LEVEL 4 Comments: [id number]
[2022-07-18 12:00] VITALS: BP 127/61; PULSE 64; RESP 17; TEMP 36.6; O2SAT 96
--- NOTE | 2022-07-18 12:10 | W.ANESPOSTOP ---
Postoperative Evaluation Date, Time and Location Date Performed: 07/18/22 Time Performed: 12:10 Patient Location: Day Surgery Unit Vital Signs Most Recent Imported Vital Signs: Most Recent Vital Signs Temp Pulse Resp BP Pulse Ox 36.6 C 64 17 127/61 96 07/18/22 12:00 07/18/22 12:00 07/18/22 12:00 07/18/22 12:00 07/18/22 12:00 Pain Score Most Recent Pain Score: Most Recent Pain Score Pain Level 0 07/18/22 12:00 Assessment Mental Status: Awake (Alert & Oriented to Patient Baseline) Airway and Respiratory Function: Patent airway with normal (patient baseline) respiratory exam Cardiovascular Function: Hemodynamically Stable Hydration Status: Adequately Hydrated Nausea & Vomiting: No Nausea or Vomiting Pain: Pt. Denies Any Pain Peripheral Nerve Block: Patient did not receive a nerve block
[2022-07-18 12:30] VITALS: BP 147/60; PULSE 58; RESP 17; TEMP 36.4; O2SAT 98
== END 2022-07-18 13:21 | disposition home or self-care (01) ==
PROVIDERS: PCP Nurse Practitioner Family; Visit Provider Surgery
PROC: (CPT 45338; principal; 2022-07-18 11:30)
DX: K66.8 Other specified disorders of peritoneum (principal); K57.30 Diverticulosis of large intestine without perforation or abscess without bleeding; K62.89 Other specified diseases of anus and rectum; D12.9 Benign neoplasm of anus and anal canal
CPT/HCPCS: 45338; 88305

== ENCOUNTER 2022-09-12 03:15 | Outpatient (CLI) | payer MEDICARE, SELFPAY ==
--- NOTE | 2022-09-12 10:04 | DI.RAD_ITS ---
Exam(s) XR CERVICAL SP COMP W FLEX/EXT EXAM: XR CERVICAL SP COMP W FLEX/EXT CLINICAL HISTORY: increased NECK pain, no trauma, causing headaches,M54.2. TECHNIQUE: 2D digital imaging was performed. Seven views. Flexion and extension lateral views were performed in addition to the routine views. COMPARISON: CR CERV SP.WITH OBL OR FLEX/EXT from 07/03/2009 FINDINGS: BONES: No fracture or destructive lesion. Vertebral bodies are normal in height.. Facet degenerati ve changes present. Bilateral neural foraminal narrowing. DISKS: Moderate narrowing of the C4-5 through C6-7 disc spaces. ALIGNMENT: There is straightening of the normal cervical lordosis on the neutral lateral view. There is limited range of motion with flexion and extension. No subluxation. The odontoid and atlantoaxi al articulations are normal. SOFT TISSUE: Normal. The lung apices are clear. IMPRESSION: Degenerative disc changes and facet degenerative changes causing bilateral neural foraminal narrowing . DATA REPOSITORY: RADIATION DOSE DELIVERED:
[2022-09-12 10:28] LABS: CREATININE 0.8 mg/dL (0.55-1.02); Estimated GFR 72.16 (mL/min/1.73m2)
[2022-09-12] MEDS: Omnipaque 350 MG/ML 100 ML BTL IJ (10:52)
[2022-09-12] MEDS: Normal Saline - Diluent 50 ML VIAL IJ (10:53)
--- NOTE | 2022-09-12 11:10 | DI.CT_ITS ---
Exam(s) CT BRAIN NECK CTA EXAM: CT BRAIN NECK CTA CLINICAL HISTORY: increasing headaches radiating to right neck,M54.2,R51.9. TECHNIQUE: Imaging Protocol: Axial CT angiography was performed with multi-slice acquisition and mu lti-planar and 3D reconstructions. CONTRAST MATERIAL: Intravenous: Omnipaque 350 Contrast volume:structured data in ml COMPARISON: None FINDINGS: CT Head W/O and W contrast: Ventricles and Extra axial spaces: Normal in size and morphology for the patient's age. Hemorrhage: None. Cerebral parenchyma: Mild atrophy consistent with the patient's age. moderate patchiness in the modseto ventricular white matter consistent with chronic microvascular changes. No visible infarct or mass. Midline shift: None. Brainstem/Cerebellum: Normal. Calvarium: Normal. Visualized Paranasal sinuses/Mastoids: Clear. Soft Tissues: Unremarkable. Enhancement: Normal. CTA Brain W: Internal Carotid Arteries: Petrous: Normal. Cavernous: Normal. Cerebral: Normal. Middle Cerebral Arteries: Right: No aneurysm, occlusion or significant stenosis. Left: No aneurysm, occlusion or significant stenosis. Anterior Cerebral Arteries: Right: No aneurysm, occlusion or significant stenosis. Left: No aneurysm, occlusion or significant stenosis. Posterior cerebral Arteries: Right: No aneurysm, occlusion or significant stenosis. Left: No aneurysm, occlusion or significant stenosis. Vertebral Arteries: Right: No aneurysm, occlusion or significant stenosis. Left: No aneurysm, occlusion or significant stenosis. Basilar Artery: No aneurysm, occlusion or significant stenosis. CTA Neck W: Common Carotid: Right: No dissection, occlusion or significant stenosis. Left: No dissection, occlusion or significant stenosis. External Carotid: Right: No dissection, occlusion or significant stenosis. Left: No dissection, occlusion or significant stenosis. Internal Carotid: Right: Focal plaque proximally.. No dissection, occlusion. Moderate stenosis. Tortuous distally. Left: Minimal calcific plaque proximally. No dissection, occlusion or significant stenosis. Severe tortuosity distally. Vertebral Artery: Right: No dissection, occlusion or significant stenosis. Left: No dissection, occlusion or significant stenosis. Lung Apices: Norm chronic appearing opacities left upper lobe. Bones: Severe degenerative changes at C1-2. This causes narrowing of the AP dimension of the central canal. Severe degenerative disc changes at C4-5 through C6-7 cause narrowing of the AP dimension of the canal. There is multilevel bilateral neural foraminal narrowing. No acute abnormality. Soft Tissues: Normal. IMPRESSION: 1. Normal CTA examination of the [place]. 2. Unremarkable CT Head. 3. Normal CTA examination of the neck. 4. Severe degenerative changes of the cervical spine cause narrowing of the AP dimension of the centr al canal greatest at C5-6 and C6-7. There is neural foraminal narrowing bilaterally from C3-4 throug h C6-7. RADIATION DOSE DELIVERED: 1,737.87mGy.cm Total DLP 1,737.87mGy.cm Total DLP DATA REPOSITORY: All CT scans at this facility are submitted to the National Radiology Data Registry (NRDR) Dose Index Registry (DIR) with the [employer] (ACR). RADIATION OPTIMIZATION: All CT scans at this facility use at least one of these dose optimization te chniques: automated exposure control; mA and/or kV adjustment per patient size (includes targeted exa ms where dose is matched to clinical indication); or iterative reconstruction.
== END 2022-09-12 03:35 ==
LOC: DI 03:16
PROVIDERS: PCP Nurse Practitioner Family; Visit Provider Nurse Practitioner Family
DX: M50.322 Other cervical disc degeneration at C5-C6 level (principal); M50.321 Other cervical disc degeneration at C4-C5 level; M50.323 Other cervical disc degeneration at C6-C7 level; R51.9 Headache, unspecified
CPT/HCPCS: 70496; 70498; 72052; 82565; J3490

== ENCOUNTER → 2022-11-20 03:02 | Outpatient (CLI) | payer MEDICARE, SELFPAY ==
--- NOTE | 2022-11-20 07:15 | DI.CT_ITS ---
Exam(s) CT ABDOMEN PELVIS W EXAM: CT ABDOMEN PELVIS W CLINICAL HISTORY: increased luq pain, diarrhea, hx of perforation,R10.12 TECHNIQUE: Imaging Protocol: Axial computed tomography images with coronal and sagittal reformatted images were created and reviewed CONTRAST MATERIAL: Intravenous: Omnipaque 350 Contrast volume:76 mL Oral: Yes COMPARISON: CT ABD PELVIS WITH CONTRAST from 02/17/[address] ABDOMEN PELVIS W from 07/26/[address] ABDOMEN PELVIS W from 06/06/[address] BRAIN NECK CTA from 09/12/2022 FINDINGS: ABDOMEN: Lung Bases: Stable tiny nodules are seen in the lung bases. Stable lingular and right middle lobe sc arring or atelectasis is present. No new findings are seen in the lung bases. Liver: Normal density. No measurable mass. Portal, Superior Mesenteric, and Splenic Veins: Unremarkable. Gallbladder and Biliary Tract: Status post cholecystectomy. There has been no significant change in size of the extrahepatic bile duct compared to the prior examination. Pancreas: Normal density, no abnormal calcifications or inflammatory process. Spleen: There is a stable hypodensity in the superior aspect of the spleen. Adrenals: No masses seen. Kidneys: Normal size, contour and axis. No radiodense stones or obstructive uropathy. No masses seen. Abdominal Aorta: Abdominal portion non-dilated. Atherosclerosis. Bowel: There is diverticulosis of the colon. There is a segment in the distal sigmoid colon with thi ckening of the wall. This may be due to underdistention but infection/inflammation versus mass. The re is no evidence of bowel obstruction. There is mild thickening seen in the transverse colon and de scending colon which may be due to underdistention. Colitis cannot be excluded. Appendix is unremar kable. Peritoneal Cavity: No ascites, collection or mesenteric inflammatory response. No definite pneumoper itoneum is identified. Lymph Nodes: Within normal limits. Bones: Within normal limits for the patient's age. Old right inferior pubic ramus fracture is seen. There again seen plate and screws across the symphysis pubis. The bones are osteopenic. Soft Tissues: Unremarkable. PELVIS: Bladder: Evaluation of the urinary bladder is limited from artifact from the patient's orthopedic moise dware. Reproductive Organs: The uterus appears absent. Lymph Nodes: Within normal limits. Bones: Within normal limits for the patient's age. IMPRESSION: 1. Bowel wall thickening in a loop of the distal sigmoid colon. (Series 5, image 648). Differential considerations include diverticulitis, colitis versus mass. Please correlate clinically. Further e valuation with colonoscopy or barium enema should be considered. 2. Nonspecific bowel wall thickening seen in the transverse and descending colon. No significant inf lammatory changes seen around the bowel. This may be due to underdistention but colitis cannot be ex cluded. 3. Incidental findings in the abdomen and pelvis as described above. Unexpected findings RADIATION DOSE DELIVERED: 755.21mGy.cm Total DLP DATA REPOSITORY: All CT scans at this facility are submitted to the National Radiology Data Registry (NRDR) Dose Index Registry (DIR) with the [employer] (ACR). RADIATION OPTIMIZATION: All CT scans at this facility use at least one of these dose optimization te chniques: automated exposure control; mA and/or kV adjustment per patient size (includes targeted exa ms where dose is matched to clinical indication); or iterative reconstruction.
[2022-11-20 08:56] LABS: Abs Immature Grans 0.01 10^3/uL (0.0-0.06); Absolute Basophil Count 0.02 10^3/uL (0.0-0.2); Absolute Eosinophil Count 0.03 10^3/uL (0.0-0.7); Absolute Lymphocyte Count 1.31 10^3/uL (1.2-3.4); Absolute Monocyte Count 0.43 10^3/uL (0.1-0.8); Absolute Neutrophil Count 3.17 10^3/uL (1.2-6.7); Basophils % 0.4; Eosinophils % 0.6; HCT 37.3 % (36.0-46.0); HGB 12.4 g/dL (11.2-15.7); Immature Grans % 0.2; Lymphocytes % 26.4; MCH 29.7 pg (27.0-33.0); MCHC 33.2 % (32.0-36.0); MCV 89 fL (80-95); MPV 10.4 fL (8.0-11.0); Monocytes % 8.7; Neutrophils % 63.7; Platelet Count 164 10^3/uL (130-400); RBC 4.18 10^6/uL (3.93-5.22); RDW 12.4 % (11.7-14.6); RDW-SD 40.8 fL; WBC 4.97 10^3/uL (4.4-10.8)
[2022-11-20] MEDS: Breeza Beverage 473 ML BTL PO ×2 (09:09→09:10)
[2022-11-20 09:11] LABS: ALT 23 U/L (14-59); AST 28 U/L (15-37); Albumin 3.7 g/dL (3.4-5.0); Alkaline Phosphatase 117 U/L (46-116); Amylase 66 U/L (25-115); Anion Gap 7.2 mmol/L (3-11); BUN 8 mg/dL (7-18); Bilirubin, Total 0.7 mg/dL (0.2-1.0); CO2 30.8 mmol/L (21.0-32.0); CREATININE 0.9 mg/dL (0.55-1.02); Calcium 9.1 mg/dL (8.5-10.1); Chloride 97 mmol/L (98-107); Estimated GFR 62.65 (mL/min/1.73m2); Glucose 93 mg/dL (74-106); Lipase 58 U/L (16-77); Potassium 4.1 mmol/L (3.5-5.1); Sodium 135 mmol/L (136-145)
[2022-11-20] MEDS: Omnipaque 350 MG/ML 50 ML BTL IJ (09:11)
[2022-11-20] MEDS: Omnipaque 350 MG/ML 100 ML BTL IJ (10:21)
[2022-11-20] MEDS: Normal Saline - Diluent 50 ML VIAL IJ (10:23)
== END ==
PROVIDERS: PCP Nurse Practitioner Family; Visit Provider Nurse Practitioner Family
DX: R10.12 Left upper quadrant pain (principal); K63.89 Other specified diseases of intestine
CPT/HCPCS: 80053; 83690; 74177; 82150; 85025; J3490; Q9967

== ENCOUNTER → 2022-12-06 00:56 | Outpatient (CLI) | payer MEDICARE, SELFPAY ==
[2022-12-06] MEDS: Barium Sulfate 2% W/V-Berry Smoothie 450 ML BTL 900 ML PO (07:56)
[2022-12-06] MEDS: Omnipaque 350 MG/ML 100 ML BTL IJ (09:49)
[2022-12-06] MEDS: Normal Saline - Diluent 50 ML VIAL IJ (09:49)
[2022-12-06] MEDS: Normal Saline Flush 10 ML SYR IVP (09:50)
--- NOTE | 2022-12-06 10:13 | DI.CT_ITS ---
Exam(s) CT ABDOMEN PELVIS W EXAM: CT ABDOMEN PELVIS W CLINICAL HISTORY: LUQ ABD PAIN, R10.12. TECHNIQUE: Imaging Protocol: Axial computed tomography images with coronal and sagittal reformatted images were created and reviewed CONTRAST MATERIAL: Intravenous: Omnipaque 350 Contrast volume:100 ml Oral: Yes COMPARISON: CT CT CHEST/ABD/PEL W from 02/02/[address] ABDOMEN PELVIS W from 06/06/[address] ABDOMEN PELVIS W from 11/20/2022 FINDINGS: ABDOMEN: Lung Bases: Atelectasis lingula and inferior right middle lobe. No change small nodules right lung b ase. Liver: Normal density. No measurable mass. Gallbladder and biliary tract: Status post cholecystectomy. Stable mild biliary dilatation. Pancreas: Normal density, no abnormal calcifications or inflammatory process. Spleen: Normal. Kidneys: Normal size, contour and axis. No radiodense stones or obstructive uropathy. No suspicious m asses seen. Adrenal glands: No masses seen. Vasculature: Abdominal aorta non-dilated. Soft tissues: Unremarkable. PELVIS: Bladder: Scattered by artifact. Nearly empty. Bowel: Large quantity of stool seen in the rectosigmoid. Diverticulosis but no evidence of diverticu litis. Little stool seen in ascending through descending colon. No obstruction. Appendix normal. Peritoneal cavity: No ascites, collection or mesenteric inflammatory response. Bones: Hardware in low pelvis creates artifact and obscures the bladder. Bones appear osteoporotic. No compression fractures. Reproductive organs: Status post hysterectomy. Lymph nodes: Unremarkable. IMPRESSION:: No acute abnormality in the abdomen or pelvis. Large quantity of stool in the rectosigmoid. Little stool elsewhere. No evidence of inflammation. RADIATION DOSE DELIVERED: 786.41mGy.cm Total DLP DATA REPOSITORY: All CT scans at this facility are submitted to the National Radiology Data Registry (NRDR) Dose Index Registry (DIR) with the [employer] (ACR). RADIATION OPTIMIZATION: All CT scans at this facility use at least one of these dose optimization te chniques: automated exposure control; mA and/or kV adjustment per patient size (includes targeted exa ms where dose is matched to clinical indication); or iterative reconstruction.
== END ==
PROVIDERS: PCP Nurse Practitioner Family; Visit Provider Nurse Practitioner Family
DX: R10.12 Left upper quadrant pain (principal)
CPT/HCPCS: 74177; J3490

== ENCOUNTER 2022-12-13 11:02 | Outpatient (REF) | payer MEDICARE, SELFPAY | END 2022-12-13 11:03 | disposition home or self-care (01) | LOC: LBN 11:02 | PROVIDERS: PCP Nurse Practitioner Family; Visit Provider Nurse Practitioner Family | DX: N39.0 Urinary tract infection, site not specified (principal); R82.79 Other abnormal findings on microbiological examination of urine | CPT/HCPCS: 87077; 87086; 87186 ==

== ENCOUNTER 2023-01-27 06:21 | Emergency (ER) | payer MEDICARE, SELFPAY ==
[2023-01-27 06:24] VITALS: BP 155/80; PULSE 70; RESP 14; TEMP 36.6; O2SAT 97
--- NOTE | 2023-01-27 06:30 | DI.CT_ITS ---
Exam(s) CT ABDOMEN PELVIS WO EXAM: CT ABDOMEN PELVIS WO CLINICAL HISTORY: generalized lower abdominal pain, vomiting. TECHNIQUE: Imaging Protocol: Axial computed tomography images with coronal and sagittal reformatted images were created and reviewed CONTRAST MATERIAL: Intravenous: none Oral: None COMPARISON: CT CT ABDOMEN PELVIS W from 12/06/2022 FINDINGS: VISUALIZED LUNG BASES: No nodules nor pleural effusions evident. Atelectasis in the anterior lung ba ses is unchanged. ABDOMEN: There is no ascites. LIVER: There are no obvious focal hepatic lesions evident of this noninfused study. GALLBLADDER/BILIARY: The gallbladder is again noted to be surgically absent. Mild biliary tree again noted commensurate with advanced age and post cholecystectomy status. PANCREAS: No evidence of pancreatic mass nor dilatation of the pancreatic duct. SPLEEN: Spleen is not enlarged. No obvious intrasplenic lesions. ADRENALS: There are no significant adrenal masses. KIDNEYS:Mild prominence of right renal infundibulum I and right renal pelvis, unchanged. No radiopaq ue calculi seen. The ureters not dilated. No cysts nor solid masses nor radiopaque calculi seen in either kidney. The urinary bladder is obscured by abundant beam hardening artifact from fusion plate in the anterior osseous pelvis.. ABDOMINAL AORTA: Abdominal aorta is not enlarged. LYMPH NODES: There is no retroperitoneal nor paraaortic adenopathy. ABDOMINAL WALL: No evidence of significant anterior abdominal wall nor inguinal hernia. GI: There is no evidence of bowel obstruction, free air, nor abscess. PELVIS: LYMPH NODES: There is no intrapelvic nor inguinal adenopathy. GI: No evidence of appendicitis.No evidence of sigmoid diverticulitis. URINARY BLADDER: As above. REPRODUCTIVE: Prior hysterectomy. No masses in the pelvis evident. OSSEOUS: Hardware again noted in the lower anterior pelvis obscuring the urinary bladder. There is a healed fracture of the inferior pubic ramus on the right side. Partial ankylosis of the SI joints e vident. No osseous lesions. No acute fractures. IMPRESSION: 1. There is abundant beam hardening artifact from fusion plate in the anterior osseous pelvis, this o bscuring visualization/evaluation of the urinary bladder. 2. Minimal dilatation of the right collecting system again noted. No radiopaque calculi evident. Ap pears similar to 12/06/2022. Cannot exclude non radiopaque ureteral lesion. Left side unremarkable. 3. Prior hysterectomy and cholecystectomy. Mild dilatation of biliary tree consistent with advanced age and post cholecystectomy status. RADIATION DOSE DELIVERED: Total DLP DATA REPOSITORY: All CT scans at this facility are submitted to the National Radiology Data Registry (NRDR) Dose Index Registry (DIR) with the [employer] (ACR). RADIATION OPTIMIZATION: All CT scans at this facility use at least one of these dose optimization te chniques: automated exposure control; mA and/or kV adjustment per patient size (includes targeted exa ms where dose is matched to clinical indication); or iterative reconstruction.
[2023-01-27 06:48] LABS: Abs Immature Grans 0.01 10^3/uL (0.0-0.06); Absolute Basophil Count 0.03 10^3/uL (0.0-0.2); Absolute Eosinophil Count 0.15 10^3/uL (0.0-0.7); Absolute Lymphocyte Count 0.85 10^3/uL (1.2-3.4); Absolute Monocyte Count 0.62 10^3/uL (0.1-0.8); Absolute Neutrophil Count 3.96 10^3/uL (1.2-6.7); Basophils % 0.5; Eosinophils % 2.7; HCT 37.5 % (36.0-46.0); HGB 12.5 g/dL (11.2-15.7); Immature Grans % 0.2; Lymphocytes % 15.1; MCH 29.3 pg (27.0-33.0); MCHC 33.3 % (32.0-36.0); MCV 88 fL (80-95); MPV 10.2 fL (8.0-11.0); Neutrophils % 70.5; Platelet Count 201 10^3/uL (130-400); RBC 4.26 10^6/uL (3.93-5.22); RDW 12.5 % (11.7-14.6); RDW-SD 40.6 fL; WBC 5.62 10^3/uL (4.4-10.8)
--- NOTE | 2023-01-27 07:02 | W.ED.GENAD ---
Discharge Plan Discharge Details Chief Complaint: Abd Prob Primary Care Provider: Jason Huff ED Provider: Tom Fernández Home Meds and New Rx's Prescriptions: No Action ICaps AREDS2 (copper citrate) 250 mg-200 unit -12.5 mg-1 mg tablet 1 tab PO BID famotidine 20 mg tablet 20 mg PO QHS Qty: 90 3RF omeprazole 40 mg capsule,delayed release(DR/EC) 40 mg PO DAILY Qty: 90 2RF albuterol sulfate 90 mcg/actuation HFA aerosol inhaler 1 - 2 inh IH Q6H PRN (Reason: shortness of breath or wheezing) Qty: 8.5 6RF mupirocin 2 % ointment 1 applic topical BID Qty: 15 0RF Rx Instructions: apply small amt to affected area BID vitamins A,C,W-rurz-azhitb 7,160-113-100 mfuq-mm-nwov tablet,delayed release (DR/EC) PO estradiol 0.01 % (0.1 mg/gram) cream 1 g vaginal DAILY Qty: 42.5 2RF Rx Instructions: local application daily for one week and then 3 times per week metoprolol tartrate 25 mg tablet 25 mg PO BID Qty: 180 3RF ondansetron HCl 4 mg tablet 4 mg PO Q8H PRN (Reason: nausea and vomiting) Qty: 21 0RF simvastatin 10 mg tablet 5 mg PO QHS Qty: 45 3RF simvastatin 5 mg tablet 5 mg PO DAILY Patient Comments: TAKE ONE TABLET BY MOUTH AT BEDTIME ferrous sulfate 325 mg (65 mg iron) tablet,delayed release (DR/EC) 325 mg PO .QOD Patient Comments: TAKE ONE TABLET BY MOUTH EVERY OTHER DAY Medical Decision Making This is an 87-year-old female with a past medical history of GERD, erosive gastritis, previous pulmonary nodules, with a CODE STATUS of DNR/DNI who presents today for evaluation of abdominal pain. Patient had abdominal pain initially on 01/24/2023, she was seen by her primary care provider, recommended antacids, Mylanta, and surgical follow-up which she has scheduled today. Pain continued intermittently. At that time the patient had her last bowel movement which was loose stool with some hard little bunny pellets of poop. Since then she has had no other bowel movements. Pain has continued, however last night pain got notably worse she had nausea with multiple episodes of dry heaving but no vomiting. Pain is described as achy and in the right left upper and lower quadrants. She denies any fever or chills. She denies having pain like this in the past. Past surgical history is positive for hysterectomy, cholecystectomy and salpingo-oophorectomy. No other complaints at this time. No other modifying factors. Family history is positive for GI malignancies. Exam demonstrates well-appearing female, notable tenderness in the lower quadrants bilaterally. No distention. Vital signs stable. Differential includes obstruction, diverticulitis, malignancy or severe constipation less likely. We will get a CT scan for further assessment, gently rehydrate. Patient does not want anything for pain at this time. We will monitor closely and reassess. Patient will be signed out to my colleague Dr. Hudson for follow-up on imaging HPI General Date/Time Provider Initiated Documentation: 01/27/23 06:31. HPI Narrative: This is an 87-year-old female with a past medical history of GERD, erosive gastritis, previous pulmonary nodules, with a CODE STATUS of DNR/DNI who presents today for evaluation of abdominal pain. Patient had abdominal pain initially on 01/24/2023, she was seen by her primary care provider, recommended antacids, Mylanta, and surgical follow-up which she has scheduled today. Pain continued intermittently. At that time the patient had her last bowel movement which was loose stool with some hard little bunny pellets of poop. Since then she has had no other bowel movements. Pain has continued, however last night pain got notably worse she had nausea with multiple episodes of dry heaving but no vomiting. Pain is described as achy and in the right left upper and lower quadrants. She denies any fever or chills. She denies having pain like this in the past. Past surgical history is positive for hysterectomy, cholecystectomy and salpingo-oophorectomy. No other complaints at this time. No other modifying factors. Family history is positive for GI malignancies. Related Data Home Medications Medication Instructions Recorded Confirmed estradiol 0.01% (0.1 mg/gram) 1 g vaginal DAILY #42.5 grams 02/26/22 01/27/23 vaginal cream metoprolol tartrate 25 mg tablet 25 mg PO BID #180 tab-caps 02/26/22 01/27/23 ondansetron HCl 4 mg tablet 4 mg PO Q8H PRN nausea and 02/26/22 01/27/23 vomiting #21 tabs vit C 250 mg-vit E 200 unit-zinc 1 tab PO BID 07/08/22 01/24/23 12.5 mg-copper 1 [id number]-[id number] tablet (ICaps AREDS2 (copper citrate)) simvastatin 10 mg tablet 5 mg (1/2 x 10 mg) PO QHS #45 09/03/22 01/27/23 tab-caps albuterol sulfate 90 mcg/actuation 1 - 2 inh inhalation Q6H PRN 11/19/22 01/27/23 aerosol inhaler shortness of breath or wheezing #8.5 grams famotidine 20 mg tablet 20 mg PO QHS #90 tabs 11/19/22 01/27/23 omeprazole 40 mg capsule,delayed 40 mg PO DAILY #90 caps 11/19/22 01/27/23 release mupirocin 2 % topical ointment 1 applic topical BID skin 12/13/22 01/27/23 infection #15 grams vit A 7,160 unit-C 113 mg-E 100 tab PO 01/24/23 01/24/23 avot-fugz-pvkbzn tablet,delayed rel. ferrous sulfate 325 mg (65 mg 325 mg PO .QOD 01/27/23 01/27/23 iron) tablet,delayed release simvastatin 5 mg tablet 5 mg PO DAILY 01/27/23 01/27/23 Previous Rx's Medication Instructions Recorded estradiol 0.01% (0.1 mg/gram) 1 g vaginal DAILY #42.5 grams 02/26/22 vaginal cream metoprolol tartrate 25 mg tablet 25 mg PO BID #180 tab-caps 02/26/22 ondansetron HCl 4 mg tablet 4 mg PO Q8H PRN nausea and 02/26/22 vomiting #21 tabs simvastatin 10 mg tablet 5 mg (1/2 x 10 mg) PO QHS #45 09/03/22 tab-caps albuterol sulfate 90 mcg/actuation 1 - 2 inh inhalation Q6H PRN 11/19/22 aerosol inhaler shortness of breath or wheezing #8.5 grams famotidine 20 mg tablet 20 mg PO QHS #90 tabs 09/05/23 omeprazole 40 mg capsule,delayed 40 mg PO DAILY #90 caps 11/19/22 release mupirocin 2 % topical ointment 1 applic topical BID skin 12/13/22 infection #15 grams Allergies Allergy/AdvReac Type Severity Reaction Status Date / Time ciprofloxacin [From Cipro] Allergy Intermediate Lips and Verified 01/27/23 06:37 face burn, feels shaky, arm tingly codeine AdvReac Intermediate Dizziness/L Verified 01/27/23 06:37 ightheade lovastatin AdvReac Intermediate myalgias Verified 01/27/23 06:37 oxycodone AdvReac Intermediate NAUSEA, GI Verified 01/27/23 06:37 UPSET azithromycin AdvReac cramping, Verified 01/27/23 06:37 anorexia doxycycline AdvReac Nausea, Verified 01/27/23 06:37 Vomiting hydrocodone AdvReac unknown Verified 01/27/23 06:37 General Stated Complaint: Abd Prob MELINDA: 3 Review of Systems All systems reviewed & are unremarkable except as noted in HPI and below PFSH All Active Problems Dysuria (Acute) Sore in nose (Acute) LUQ abdominal pain (Acute) Serrated adenoma of colon (Acute ~07/18/22) Neck pain on right side (Acute) Perforated diverticulum (Chronic) Dermatitis (Acute) Vaginitis, atrophic (Acute) Hyponatremia (Chronic) Multiple occasions last of which was 01/2021, 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 intestinal meta. or dysplasia Family history of GI malignancy Essential hypertension (01/14/13) Depressive disorder Atrophic vaginitis (08/19/11) Pt. states she is unsure [place]; rib fracture; lacerated liver; fx-pelvis; perf. intestine Family history of GI malignancy Surgical History KNEE SURGERY (~05/2012) Abdominal hysterectomy EGD - MAC (04/22/17) Colonoscopy - MAC (04/22/17) Colonoscopy - MAC (~02/2012) Cholecystectomy Bladder Surgery Bilateral salpingectomy with oophorectomy Arthroplasty of knee (05/27/12) LEFT - Pt denies knee replacement Family History Mother , AGE 84 Heart disease Father , AGE 87 Stroke Heart disease Cancer Sister Stroke Brother Alcohol abuse Cancer Brother Cancer of kidney Son Hyperlipidemia Pulmonary disease Daughter Thyroid disease Daughter Cancer s/p hysterectomy Daughter No problems noted. Daughter No problems noted. Brother No problems noted. Maternal Grandfather No problems noted. Paternal Grandfather No problems noted. Maternal Grandmother No problems noted. Paternal Grandfather No problems noted. Social History Smoking/Tobacco Use Status: Former Tobacco Use tobacco type: cigarettes Quit Date: 03/17/97 Second Hand Exposure: Yes Smoking risk assessment performed?: Yes Alcohol Intake: never Drug use: Never Substance use type: does not use Communication Needs: Hard of Hearing Do you need help understanding health information?: Often Pets and animals: No Sexually active: No Do you think of yourself as: straight/heterosexual Current gender identity: female What is your relationship status?: How often do you talk on the phone with friends or family?: decline to answer How often do you attend presybeterian or evangelical services?: decline to answer Do you belong to any clubs or organized social groups?: decline to answer Panel score (0-1 are the most socially isolated patients): 0 What type of physical activity do you participate in: walking Carri/Jew: No preference Special carri needs: No Drive intox 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 3.ENT: Atraumatic external nose and ears. Moist MM. Neck: Symmetric, trachea midline, No thyromegaly. 4.CVS: +S1/S2, No murmurs or gallops. Peripheral pulses 2+ and equal in all extremities. Brisk capillary refill in all extremities. 5.RESP: Unlabored respiratory effort. Clear to auscultation bilaterally. No wheezes rales or rhonchi 6.GI: Soft, nondistended. Generalized tenderness throughout, primarily in the right lower and left lower quadrants. 7.MSK: Normocephalic/Atraumatic, Extremities w/o deformity or ttp No cyanosis or clubbing, Normal movement of all extremities 8.Skin: Warm, Dry. No rashes or lesions. 9.Neuro: drapery maker II-XII grossly intact. Sensation grossly intact, no focal neurologic deficits. 10.Psych: (AAO) x3. Appropriate mood and affect Course Vital Signs Vital signs: Vital Signs Temperature 36.6 C 01/27/23 06:24 Pulse 70 01/27/23 06:24 Respiratory Rate 14 01/27/23 06:24 Blood Pressure 155/80 H 01/27/23 06:24 Pulse Oximetry 97 01/27/23 06:24 Temperature 36.6 C 01/27/23 06:24 Temperature Source Oral 01/27/23 06:24 Pulse 70 01/27/23 06:24 Respiratory Rate 14 11/13/23 06:24 Respiratory Effort Normal 01/27/23 06:31 Blood Pressure 155/80 H 01/27/23 06:24 Pulse Oximetry 97 01/27/23 06:24 Oxygen Delivery Method Room Air 01/27/23 06:24 Oxygen Flow Rate 0 01/27/23 06:24 Pain Level 0 01/27/23 06:24 Lab/Test Results Lab/Test Results: Laboratory Tests Range/Units 01/27/23 06:40 WBC (4.4-10.8) 10^3/uL 5.62 RBC (3.93-5.22) 10^6/uL 4.26 Hgb (11.2-15.7) g/dL 12.5 Hct (36.0-46.0) % 37.5 MCV (80-95) fL 88 MCH (27.0-33.0) pg 29.3 MCHC (32.0-36.0) % 33.3 RDW (11.7-14.6) % 12.5 Plt Count (130-400) 10^3/uL 201 MPV (8.0-11.0) fL 10.2 Immature Gran % 0.2 Neutrophils % 70.5 Lymphocytes % 15.1 Monocytes % 11.0 Eosinophils % 2.7 Basophils % 0.5 Nucleated RBC % (0.0-0.3) % 0.0 Absolute Neutrophils (1.2-6.7) 10^3/uL 3.96 Absolute Lymphocytes (1.2-3.4) 10^3/uL 0.85 L Absolute Monocytes (0.1-0.8) 10^3/uL 0.62 Absolute Eosinophils (0.0-0.7) 10^3/uL 0.15 Absolute Basophils (0.0-0.2) 10^3/uL 0.03
[2023-01-27 07:04] LABS: ALT 22 U/L (14-59); AST 25 U/L (15-37); Albumin 3.4 g/dL (3.4-5.0); Alkaline Phosphatase 119 U/L (46-116); BUN 14 mg/dL (7-18); Bilirubin, Total 0.5 mg/dL (0.2-1.0); CREATININE 0.9 mg/dL (0.55-1.02); Calcium 9.3 mg/dL (8.5-10.1); Chloride 95 mmol/L (98-107); Estimated GFR 62.65 (mL/min/1.73m2); Glucose 108 mg/dL (74-106); Lipase 43 U/L (16-77); Potassium 4.7 mmol/L (3.5-5.1); Sodium 133 mmol/L (136-145); Total Protein 7.3 g/dL (6.4-8.2)
[2023-01-27] MEDS: Normal Saline 500 ML IV (07:30)
--- NOTE | 2023-01-27 07:40 | DI.VRAD_ITS ---
PROCEDURE INFORMATION: Exam: CT Abdomen And Pelvis Without Contrast Exam date and time: 01/27/2023 7:19 AM Age: 87 years old Clinical indication: Abdominal pain; Localized; Patient HX: Generalized lower abd pain, vomiting TECHNIQUE: Imaging protocol: Computed tomography of the abdomen and pelvis without contrast. COMPARISON: CT ABDOMEN PELVIS W 12/06/2022 10:06 AM FINDINGS: Limitations: Images degraded due to artifact caused by patient motion as well as metallic hardware. No contrast was administered, limiting evaluation for some pathologies. Lungs: Scarring/atelectasis in the lungs. Coronary arteries: Coronary artery calcifications. Liver: No focal hepatic lesion identified, within the limitations of a noncontrast examination. Gallbladder and bile ducts: Cholecystectomy with biliary ductal dilatation. Pancreas: No CT evidence for acute pancreatitis. Spleen: No splenomegaly. Adrenal glands: Nodular adrenal thickening. Kidneys and ureters: Minimal right hydroureteronephrosis. The ureter is not well seen throughout its course. No definite calculi seen in the visualized portion of the ureter. Stomach and bowel: No intestinal obstruction is evident. Colonic diverticulosis. Areas of apparent mural thickening in the colon commensurate with underdistention. Appendix: No evidence of appendicitis. Intraperitoneal space: No free air. Vasculature: Extensive arterial calcifications. Lymph nodes: No acute findings. Urinary bladder: No acute findings. Reproductive: Uterus not visualized. Bones/joints: Status post internal fixation in the anterior pelvis. Artifact limits evaluation of the pelvis. Nonacute deformity of the right inferior pubic ramus. Soft tissues: No pertinent acute abnormality seen. IMPRESSION: 1. Study limitations as above. 2. Minimal right hydroureteronephrosis. No definite calculi identified, within the limitations noted above. Findings are of indeterminate significance. Cannot exclude recent stone passage or obstruction by a non radiopaque lesion. Clinical correlation advised. 3. Additional findings as above. Dictated and Authenticated by: Dorothy Mensah MD. Ordering:JUNG Santos MD
--- NOTE | 2023-01-27 08:08 | W.EDPROG ---
Date of service: 01/27/23 Time of Service: 08:08 Medical Decision Making This patient was signed out to me. Please see previous notes for H&P and initial eval. In brief, 87yo F with abdominal pain and tenderness. Labs reassuring, CT with no significant abnormalities/obstruction/etc. Plan for enema, bentyl, likely discharge home to previously schedule appointment with general surgery. Meds administered, tolerated well. Discharged; discharge instructions and return precautions were reviewed with patient who verbalized understanding. All questions were answered and she is in full agreement with the plan. Sign Out Sign Out Data: Sign Out Comment: Abdominal pain, dry heaving, pending surgery eval Last updated by Tom Fernández DO at 01/27/23 07:57 Discharge Plan Disposition Patient Disposition: Home Condition: Good Discharge Details Clinical Impression: Abdominal pain Primary Care Provider: Jason Huff ED Provider: Isabella Bob Home Meds and New Rx's Prescriptions: No Action ICaps AREDS2 (copper citrate) 250 mg-200 unit -12.5 mg-1 mg tablet 1 tab PO BID famotidine 20 mg tablet 20 mg PO QHS Qty: 90 3RF omeprazole 40 mg capsule,delayed release(DR/EC) 40 mg PO DAILY Qty: 90 2RF albuterol sulfate 90 mcg/actuation HFA aerosol inhaler 1 - 2 inh IH Q6H PRN (Reason: shortness of breath or wheezing) Qty: 8.5 6RF mupirocin 2 % ointment 1 applic topical BID Qty: 15 0RF Rx Instructions: apply small amt to affected area BID vitamins A,C,I-icee-zrkwcc 7,160-113-100 cmzd-ui-sfwu tablet,delayed release (DR/EC) PO estradiol 0.01 % (0.1 mg/gram) cream 1 g vaginal DAILY Qty: 42.5 2RF Rx Instructions: local application daily for one week and then 3 times per week metoprolol tartrate 25 mg tablet 25 mg PO BID Qty: 180 3RF ondansetron HCl 4 mg tablet 4 mg PO Q8H PRN (Reason: nausea and vomiting) Qty: 21 0RF simvastatin 10 mg tablet 5 mg PO QHS Qty: 45 3RF simvastatin 5 mg tablet 5 mg PO DAILY Patient Comments: TAKE ONE TABLET BY MOUTH AT BEDTIME ferrous sulfate 325 mg (65 mg iron) tablet,delayed release (DR/EC) 325 mg PO .QOD Patient Comments: TAKE ONE TABLET BY MOUTH EVERY OTHER DAY Discharge Instructions Instructions: Abdominal Pain (ED) Additional Instructions: Follow up with surgery- keep your appointment today at 10am. Return to the emergency department for new or worsening symptoms, including new/different/worse pain, inability to keep down fluids, or if you have any other concerns. Referrals: Jason Huff NP [Primary Care Provider] -
[2023-01-27] MEDS: Mineral Oil-Enema 133 ML BTL PR (08:30)
[2023-01-27] MEDS: Dicyclomine 20 MG TAB PO (09:06)
== END 2023-01-27 09:21 | disposition home or self-care (01) ==
PROVIDERS: Student in an Organized Health Care Education/Training Program; Emergency Provider Student in an Organized Health Care Education/Training Program; PCP Nurse Practitioner Family
DX: R10.9 Unspecified abdominal pain (principal)
CPT/HCPCS: 00123; 80053; 83690; 96360; 99284; 74176; 85025

== ENCOUNTER 2023-02-13 09:29 | Emergency (ER) | payer MEDICARE, SELFPAY ==
[2023-02-13 09:44] VITALS: BP 138/56; PULSE 65; RESP 18; TEMP 36.4; O2SAT 95
--- NOTE | 2023-02-13 09:50 | W.ED.GENAD ---
Discharge Plan Disposition Patient Disposition: Home Discharge Details Clinical Impression: Urinary tract infection Primary Care Provider: Jason Huff ED Provider: Tom Lyman Home Meds and New Rx's Prescriptions: New cefpodoxime 200 mg tablet 200 mg PO BID 10 Days Qty: 20 0RF Rx Instructions: must administer with a meal/food Continued ICaps AREDS2 (copper citrate) 250 mg-200 unit -12.5 mg-1 mg tablet 1 tab PO BID famotidine 20 mg tablet 20 mg PO QHS Qty: 90 3RF omeprazole 40 mg capsule,delayed release(DR/EC) 40 mg PO DAILY Qty: 90 2RF albuterol sulfate 90 mcg/actuation HFA aerosol inhaler 1 - 2 inh IH Q6H PRN (Reason: shortness of breath or wheezing) Qty: 8.5 6RF mupirocin 2 % ointment 1 applic topical BID Qty: 15 0RF Rx Instructions: apply small amt to affected area BID vitamins A,C,F-bifr-ifmkxp 7,[id number] anmr-tp-yurf tablet,delayed release (DR/EC) PO estradiol 0.01 % (0.1 mg/gram) cream 1 g vaginal DAILY Qty: 42.5 2RF Rx Instructions: local application daily for one week and then 3 times per week metoprolol tartrate 25 mg tablet 25 mg PO BID Qty: 180 3RF ondansetron HCl 4 mg tablet 4 mg PO Q8H PRN (Reason: nausea and vomiting) Qty: 21 0RF simvastatin 10 mg tablet 5 mg PO QHS Qty: 45 3RF simvastatin 5 mg tablet 5 mg PO DAILY Patient Comments: TAKE ONE TABLET BY MOUTH AT BEDTIME ferrous sulfate 325 mg (65 mg iron) tablet,delayed release (DR/EC) 325 mg PO .QOD Patient Comments: TAKE ONE TABLET BY MOUTH EVERY OTHER DAY Discharge Instructions Instructions: Urinary Tract Infection in Women (ED), Renal Colic (ED) Additional Instructions: You were seen in the emergency department for your right flank pain last night but is less pronounced today. Your urine shows that you have a UTI which I have sent antibiotics to your pharmacy in [place]. The radiologist questions some mild hydronephrosis which is evidence of a possible kidney stone that has passed from the ureter into the bladder. You may experience some pain if this passes out of the urethra. You may purchase [id number]-vapjzie AZO to use to help numb the urethra if you are passing a stone. Please stay well-hydrated. Please take the prescribed cefpodoxime well away from the time of the day of your famotidine and omeprazole as the stroke should not be taken at the exact same time. Please use Tylenol and ibuprofen for pain. Follow-up with your primary care provider or return to the ED for any signs of fever, increasing flank pain with nausea and vomiting. Referrals: Jason Huff NP [Primary Care Provider] - Discharge Data Discharge Date/Time-TO BE ENTERED AT DEPARTURE: 02/13/23 12:31 Medical Decision Making This dictation utilizes ozatq-yc-pfab dictation software and may contain unedited grammatical errors. 87 y/o F presents to ED today with a chief complaint of dysuria, urinary frequency, R flank pain last night, resolved currently. Onset and characteristics include last night starting feeling flank pain, had an episode of urinary frequency peeing once per hour, then having some dysuria and burning sensation, denies hematuria, denies history of renal stones. Patients' medical history: History of diverticulitis, hypertension, GERD, hyperlipidemia, multiple bladder surgeries, s/p cholecystectomy. Family and social history: FHx of GI CA. Pertinent exam findings / vital signs include no CVA tenderness bilaterally, benign abdomen, nontoxic, benign cardiopulmonary status. Differential / pathologies of concern include UTI, pyelonephritis, renal stones, not sepsis, not GI obstruction. Diagnostic studies of: -CBC, CMP, UA, CT Renal wo Contrast. -no leukocytosis -no TAVO on CMP, noted chronic hyponatremia, patient sees PCP for this issue -UA shows 20-50 white blood cells with trace leukocyte esterase and positive nitrates consistent with UTI -CT shows no acute pathology, some artifact from metal plate from old pubic fracture, question density by radiologist for malignancy, but patient has no hematuria, possible stone in bladder -shows prominence of R upper renal collecting system, possible passed stone to bladder Interventions of: -outpatient Rx. ED Course/Assessment/Plan: Counseled the patient on likely UTI and possible kidney stone that was causing flank pain last night passed to the bladder, bladder incompletely imaged, recommend staying well-hydrated and taking antibiotics as directed, return to the ED for any increasing flank pain, especially with fever, nausea, weakness, urinary retention. Findings not consistent with infected kidney stone, hematuria or bladder cancer, this is likely a passed kidney stone to the bladder with UTI present, currently, do not suspect any renal failure or systemic infection with a normal CBC. Disposition of Urinary Tract Infection. Patient verbalized understanding of the plan and return to ED criteria and engaged in shared decision making. Medical Records Medical records reviewed: Yes I reviewed the patient's medical records. Imaging Data Radiologic Study: Imaging: CT Scan Radiologist's impression: EXAM: CT RENAL COLIC WO CLINICAL HISTORY: R flank pain, urinary difficulty, no hx stones. TECHNIQUE: Imaging Protocol: Axial computed tomography images with coronal and sagittal reformatted images were created and reviewed CONTRAST MATERIAL: Intravenous: none Oral: None COMPARISON: CT CT ABDOMEN PELVIS WO from 01/27/2023 FINDINGS: VISUALIZED LUNG BASES: No nodules nor pleural effusions evident. Mild increased markings evident in the right middle lobe. ABDOMEN: There is no ascites. LIVER: There are no obvious focal hepatic lesions evident of this noninfused study. GALLBLADDER/BILIARY: Gallbladder is again noted to be surgically absent. CBD is not dilated. PANCREAS: No evidence of pancreatic mass nor dilatation of the pancreatic duct. SPLEEN: Spleen is not enlarged. No obvious intrasplenic lesions. ADRENALS: There are no significant adrenal masses. KIDNEYS:Left kidney unremarkable. No opaque calculi evident either kidney. No solid renal masses identified on this non few study. No cysts. There is mild dilatation of the for right collecting system again noted. The right ureter does not appear dilated below the UPJ level no solid renal masses identified.. ABDOMINAL AORTA: Calcified but not enlarged. LYMPH NODES: There is no retroperitoneal nor paraaortic adenopathy. ABDOMINAL WALL: No evidence of significant anterior abdominal wall nor inguinal hernia. GI: There is no evidence of bowel obstruction, free air, nor abscess. PELVIS: LYMPH NODES: There is no intrapelvic nor inguinal adenopathy. GI: No evidence of appendicitis.Extensive sigmoid diverticulosis. No evidence of acute diverticulitis. URINARY BLADDER: Difficult to assess because of beam hardening artifact from anterior fusion plate in the pelvis. REPRODUCTIVE: Uterus surgically absent. No obvious adnexal masses. No free fluid. OSSEOUS: Anterior fusion plate at the level the symphysis pubis evident. No fractures. Mild degenerative anterolisthesis L4 upon L5. IMPRESSION: 1. There is again noted mild prominence of the right upper renal collecting system without evidence of obvious radiopaque calculi and no gross dilatation of the ureter. No solid masses nor cysts seen in either kidney. The urinary bladder is again noted be partially obscured by beam hardening artifact from fusion plate in the anterior osseous pelvis. 2. Sigmoid diverticulosis. No obvious acute diverticulitis. 3. Uterus surgically absent. No obvious adnexal masses. Discussed with ER physician Lab Data Labs: 02/13/23 10:15 Urine - Reflex from Ua Urine Culture - Pending Laboratory Tests Range/Units 02/13/23 02/13/23 10:15 10:45 WBC (4.4-10.8) 10^3/uL 5.84 RBC (3.93-5.22) 10^6/uL 4.11 Hgb (11.2-15.7) g/dL 12.0 Hct (36.0-46.0) % 36.2 MCV (80-95) fL 88 MCH (27.0-33.0) pg 29.2 MCHC (32.0-36.0) % 33.1 RDW (11.7-14.6) % 12.7 Plt Count (130-400) 10^3/uL 183 MPV (8.0-11.0) fL 9.9 Immature Gran % 0.3 Neutrophils % 75.7 Lymphocytes % 12.3 Monocytes % 11.1 Eosinophils % 0.3 Basophils % 0.3 Nucleated RBC % (0.0-0.3) % 0.0 Absolute Neutrophils (1.2-6.7) 10^3/uL 4.41 Absolute Lymphocytes (1.2-3.4) 10^3/uL 0.72 L Absolute Monocytes (0.1-0.8) 10^3/uL 0.65 Absolute Eosinophils (0.0-0.7) 10^3/uL 0.02 Absolute Basophils (0.0-0.2) 10^3/uL 0.02 Sodium (136-145) mmol/L 130 L Potassium (3.5-5.1) mmol/L 4.7 Chloride (98-107) mmol/L 94 L Carbon Dioxide (21.0-32.0) mmol/L 31.1 Anion Gap (3-11) mmol/L 4.9 BUN (7-18) mg/dL 11 Creatinine (0.55-1.02) mg/dL 0.8 Est GFR (CKD-EPI 2020) (mL/min/1.73m2) 72.16 Glucose (74-106) mg/dL 101 Calcium (8.5-10.1) mg/dL 9.1 Total Bilirubin (0.2-1.0) mg/dL 0.5 AST (15-37) U/L 30 ALT (14-59) U/L 28 Alkaline Phosphatase (46-116) U/L 105 Total Protein (6.4-8.2) g/dL 7.2 Albumin (3.4-5.0) g/dL 3.5 Urine Color (Yellow) Yellow Urine Clarity (Clear) Cloudy Urine pH (5-8) 7.0 Ur Specific [place] (1.005-1.025) 1.020 Urine Protein (Negative) mg/dL 30 H Urine Ketones (Negative) mg/dL Negative Urine Blood (Negative) Negative Urine Nitrite (Negative) Positive H Urine Bilirubin (Negative) Negative Urine Urobilinogen (Up to 0.2) mg/dL 1.0 H Ur Leukocyte Esterase (Negative) Trace H Urine RBC (0-2) HPF Negative Urine WBC (0-5) HPF 20-50 H Ur Epithelial Cells (Negative) HPF Few Urine Crystals (Negative) HPF Negative Urine Bacteria (Negative) HPF Many Urine Casts (Negative) LPF 0-2 Hyaline Urine Mucus (Negative) Negative Ur Culture Indicated? Yes Urine Glucose (Negative) mg/dL Negative HPI General Date/Time Provider Initiated Documentation: 02/13/23 09:49. HPI Narrative: 87 year-old female presents to ED today by POV/ambulating with a chief complaint of dysuria, flank pain R sided with onset last night, flank pain has spontaneously resolved today. Quality described as urinary frequency with pressure and weak stream last night, which resolved, and slight burning sensation, no radiation to fever, LOC, nausea, vomiting, chest pain, bowel changes, dizziness. Severity is described as 4-5/10. Palliating factors include nothing specific attempted. Provoking factors include nothing specific. Events leading up to the incident/Associated Symptoms: patient denies history of renal stones. Patient not anticoagulated. Related Data Home Medications Medication Instructions Recorded Confirmed estradiol 0.01% (0.1 mg/gram) 1 g vaginal DAILY #42.5 grams 02/26/22 01/28/23 vaginal cream metoprolol tartrate 25 mg tablet 25 mg PO BID #180 tab-caps 02/26/22 01/28/23 ondansetron HCl 4 mg tablet 4 mg PO Q8H PRN nausea and 02/26/22 01/28/23 vomiting #21 tabs vit C 250 mg-vit E 200 unit-zinc 1 tab PO BID 07/08/22 01/28/23 12.5 mg-copper 1 vt-qix-wdjcer tablet (ICaps AREDS2 (copper citrate)) simvastatin 10 mg tablet 5 mg (1/2 x 10 mg) PO QHS #45 09/03/22 01/28/23 tab-caps albuterol sulfate 90 mcg/actuation 1 - 2 inh inhalation Q6H PRN 11/19/22 01/28/23 aerosol inhaler shortness of breath or wheezing #8.5 grams famotidine 20 mg tablet 20 mg PO QHS #90 tabs 11/19/22 01/28/23 omeprazole 40 mg capsule,delayed 40 mg PO DAILY #90 caps 11/19/22 01/28/23 release mupirocin 2 % topical ointment 1 applic topical BID skin 12/13/22 01/28/23 infection #15 grams vit A 7,160 unit-C 113 mg-E 100 tab PO 01/24/23 01/28/23 rnbc-jhej-hmzrmw tablet,delayed rel. ferrous sulfate 325 mg (65 mg 325 mg PO .QOD 01/27/23 01/28/23 iron) tablet,delayed release simvastatin 5 mg tablet 5 mg PO DAILY 01/27/23 01/28/23 cefpodoxime 200 mg tablet 200 mg PO BID UTI 10 days #20 tabs 02/13/23 Previous Rx's Medication Instructions Recorded estradiol 0.01% (0.1 mg/gram) 1 g vaginal DAILY #42.5 grams 02/26/22 vaginal cream metoprolol tartrate 25 mg tablet 25 mg PO BID #180 tab-caps 02/26/22 ondansetron HCl 4 mg tablet 4 mg PO Q8H PRN nausea and 02/26/22 vomiting #21 tabs simvastatin 10 mg tablet 5 mg (1/2 x 10 mg) PO QHS #45 09/03/22 tab-caps albuterol sulfate 90 mcg/actuation 1 - 2 inh inhalation Q6H PRN 11/19/22 aerosol inhaler shortness of breath or wheezing #8.5 grams famotidine 20 mg tablet 20 mg PO QHS #90 tabs 11/19/22 omeprazole 40 mg capsule,delayed 40 mg PO DAILY #90 caps 11/19/22 release mupirocin 2 % topical ointment 1 applic topical BID skin 12/13/22 infection #15 grams cefpodoxime 200 mg tablet 200 mg PO BID UTI 10 days #20 tabs 02/13/23 Allergies Allergy/AdvReac Type Severity Reaction Status Date / Time ciprofloxacin [From Cipro] Allergy Intermediate Lips and Verified 01/27/23 06:37 face burn, feels shaky, arm tingly codeine AdvReac Intermediate Dizziness/L Verified 01/27/23 06:37 ightheade lovastatin AdvReac Intermediate myalgias Verified 01/27/23 06:37 oxycodone AdvReac Intermediate NAUSEA, GI Verified 01/27/23 06:37 UPSET azithromycin AdvReac cramping, Verified 01/27/23 06:37 anorexia doxycycline AdvReac Nausea, Verified 01/27/23 06:37 Vomiting hydrocodone AdvReac unknown Verified 01/27/23 06:37 General Stated Complaint: Urinary MELINDA: 3 Review of Systems All systems reviewed & are unremarkable except as noted in HPI and below PFSH All Active Problems (Updated 02/13/23 @ 12:08 by FADIA Verma) Urinary tract infection (Acute) Abdominal pain (Acute) Dysuria (Acute) Sore in nose (Acute) LUQ abdominal pain (Acute) Serrated adenoma of colon (Acute ~07/18/22) Neck pain on right side (Acute) Perforated diverticulum (Chronic) Dermatitis (Acute) Vaginitis, atrophic (Acute) Hyponatremia (Chronic) Multiple occasions last of which was 01/2021, 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 intestinal meta. or dysplasia Family history of GI malignancy Essential hypertension (01/14/13) Depressive disorder Atrophic vaginitis (08/19/11) Pt. states she is unsure [place]; rib fracture; lacerated liver; fx-pelvis; perf. intestine Family history of GI malignancy Surgical History KNEE SURGERY (~05/2012) Abdominal hysterectomy EGD - MAC (04/22/17) Colonoscopy - MAC (04/22/17) Colonoscopy - MAC (~02/2012) Cholecystectomy Bladder Surgery Bilateral salpingectomy with oophorectomy Arthroplasty of knee (05/27/12) LEFT - Pt denies knee replacement Family History Mother , AGE 84 Heart disease Father , AGE 87 Stroke Heart disease Cancer Sister Stroke Brother Alcohol abuse Cancer Brother Cancer of kidney Son Hyperlipidemia Pulmonary disease Daughter Thyroid disease Daughter Cancer s/p hysterectomy Daughter No problems noted. Daughter No problems noted. Brother No problems noted. Maternal Grandfather No problems noted. Paternal Grandfather No problems noted. Maternal Grandmother No problems noted. Paternal Grandfather No problems noted. Social History Smoking/Tobacco Use Status: Former Tobacco Use tobacco type: cigarettes Quit Date: 03/17/97 Second Hand Exposure: Yes Smoking risk assessment performed?: Yes Alcohol Intake: never Drug use: Never Substance use type: does not use Communication Needs: Hard of Hearing Do you need help understanding health information?: Often Pets and animals: No Sexually active: No Do you think of yourself as: straight/heterosexual Current gender identity: female What is your relationship status?: How often do you talk on the phone with friends or family?: decline to answer How often do you attend quaker or anglican services?: decline to answer Do you belong to any clubs or organized social groups?: decline to answer Panel score (0-1 are the most socially isolated patients): 0 What type of physical activity do you participate in: walking Carri/Oriental Orthodox: No preference Special carri needs: No Drive intox 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 laborer driver: No Do you feel safe at home: Yes Do you feel safe in your relationship?: Yes Exam Narrative Exam Narrative: GENERAL APPEARANCE: Well-nourished, non-toxic, awake and alert, atraumatic, no acute distress. SKIN: Warm, pink, dry, intact, without rashes/lesions/ulcerations. HEAD: Normocephalic, atraumatic, normal hair distribution for gender/age. EYES: Pupils PERRLA, EOMs intact without nystagmus, normal conjunctiva, no exudates on lids/lashes. ENT: Nares patent, no circumoral cyanosis, no facial swelling NECK: Supple, trachea midline, painless cervical ROM. LUNGS/CHEST: Lungs CTA bilaterally, non-labored respirations, normal A/P diameter, symmetrical expansion, no chest wall deformity HEART (CV/PV): Regular rate and rhythm without murmur, no peripheral edema, no JVD. ABDOMEN: Soft, non-distended, no guarding, no CVA tenderness bilaterally, no anterior abdominal tenderness. MSK: Normal ROM, no swelling/deformity to bilateral UEs or LEs, moving all extremities without weakness, no cyanosis, spine midline without tenderness, normal curvature. NEURO: Mental Status AAOx4 - alert to person, place, time, events No facial droop, no forehead involvement. Motor: No focal weakness - strength 5/5 in bilateral UEs and LEs, proximal and distal, symmetric. Sensory: sensation intact to light touch globally. Gait normal: patient ambulated without ataxia into ED room. PSYCH: euthymic, cooperative, pleasant, appropriate speech Course 02/13/23 10:15 Urine Culture Stat Microscopic Findings [URIN] Stat Urinalysis [URIN] Stat 02/13/23 10:45 Comprehensive Metabolic Panel Stat Complete Blood Count w/Diff [HEMO] Stat 02/13/23 11:36 CT renal colic wo [CT] Stat Vital Signs Vital signs: Vital Signs Temperature 36.4 C L 02/13/23 09:44 Pulse 65 02/13/23 09:44 Respiratory Rate 18 02/13/23 09:44 Blood Pressure 138/56 L 02/13/23 09:44 Pulse Oximetry 95 02/13/23 09:44 Temperature 36.4 C L 02/13/23 09:44 Temperature Source Oral 02/13/23 09:44 Pulse 65 02/13/23 09:44 Respiratory Rate 18 02/13/23 09:44 Blood Pressure 138/56 L 02/13/23 09:44 Blood Pressure Position Sitting 02/13/23 09:44 Pulse Oximetry 95 02/13/23 09:44 Oxygen Delivery Method Room Air 02/13/23 09:44 Oxygen Flow Rate 0 02/13/23 09:44
[2023-02-13 10:24] LABS: Bilirubin Negative (Negative); Blood Negative (Negative); Clarity Cloudy (Clear); Glucose Negative (Negative); Ketones Negative (Negative); Leukocyte Esterase Trace (Negative); Nitrite Positive (Negative)
[2023-02-13 10:31] LABS: Bacteria Many HPF (Negative); C & S Indicated? Yes; Casts 0-2 Hyaline LPF (Negative); Crystals Negative HPF (Negative); Epithelial Cells Few HPF (Negative); Mucus Negative (Negative); RBC Negative HPF (0-2); WBC 20-50 HPF (0-5)
[2023-02-13 10:57] LABS: Abs Immature Grans 0.02 10^3/uL (0.0-0.06); Absolute Basophil Count 0.02 10^3/uL (0.0-0.2); Absolute Eosinophil Count 0.02 10^3/uL (0.0-0.7); Absolute Lymphocyte Count 0.72 10^3/uL (1.2-3.4); Absolute Monocyte Count 0.65 10^3/uL (0.1-0.8); Absolute Neutrophil Count 4.41 10^3/uL (1.2-6.7); Basophils % 0.3; Eosinophils % 0.3; HCT 36.2 % (36.0-46.0); Immature Grans % 0.3; Lymphocytes % 12.3; MCH 29.2 pg (27.0-33.0); MCHC 33.1 % (32.0-36.0); MCV 88 fL (80-95); MPV 9.9 fL (8.0-11.0); Monocytes % 11.1; Neutrophils % 75.7; Platelet Count 183 10^3/uL (130-400); RBC 4.11 10^6/uL (3.93-5.22); RDW 12.7 % (11.7-14.6); RDW-SD 41.1 fL; WBC 5.84 10^3/uL (4.4-10.8)
[2023-02-13 11:19] LABS: ALT 28 U/L (14-59); AST 30 U/L (15-37); Albumin 3.5 g/dL (3.4-5.0); Alkaline Phosphatase 105 U/L (46-116); Anion Gap 4.9 mmol/L (3-11); BUN 11 mg/dL (7-18); Bilirubin, Total 0.5 mg/dL (0.2-1.0); CO2 31.1 mmol/L (21.0-32.0); CREATININE 0.8 mg/dL (0.55-1.02); Calcium 9.1 mg/dL (8.5-10.1); Chloride 94 mmol/L (98-107); Estimated GFR 72.16 (mL/min/1.73m2); Glucose 101 mg/dL (74-106); Potassium 4.7 mmol/L (3.5-5.1); Sodium 130 mmol/L (136-145); Total Protein 7.2 g/dL (6.4-8.2)
--- NOTE | 2023-02-13 11:36 | DI.CT_ITS ---
Exam(s) CT RENAL COLIC WO EXAM: CT RENAL COLIC WO CLINICAL HISTORY: R flank pain, urinary difficulty, no hx stones. TECHNIQUE: Imaging Protocol: Axial computed tomography images with coronal and sagittal reformatted images were created and reviewed CONTRAST MATERIAL: Intravenous: none Oral: None COMPARISON: CT CT ABDOMEN PELVIS WO from 01/27/2023 FINDINGS: VISUALIZED LUNG BASES: No nodules nor pleural effusions evident. Mild increased markings evident in the right middle lobe. ABDOMEN: There is no ascites. LIVER: There are no obvious focal hepatic lesions evident of this noninfused study. GALLBLADDER/BILIARY: Gallbladder is again noted to be surgically absent. CBD is not dilated. PANCREAS: No evidence of pancreatic mass nor dilatation of the pancreatic duct. SPLEEN: Spleen is not enlarged. No obvious intrasplenic lesions. ADRENALS: There are no significant adrenal masses. KIDNEYS:Left kidney unremarkable. No opaque calculi evident either kidney. No solid renal masses id entified on this non few study. No cysts. There is mild dilatation of the for right collecting syst em again noted. The right ureter does not appear dilated below the UPJ level no solid renal masses i dentified.. ABDOMINAL AORTA: Calcified but not enlarged. LYMPH NODES: There is no retroperitoneal nor paraaortic adenopathy. ABDOMINAL WALL: No evidence of significant anterior abdominal wall nor inguinal hernia. GI: There is no evidence of bowel obstruction, free air, nor abscess. PELVIS: LYMPH NODES: There is no intrapelvic nor inguinal adenopathy. GI: No evidence of appendicitis.Extensive sigmoid diverticulosis. No evidence of acute diverticuliti s. URINARY BLADDER: Difficult to assess because of beam hardening artifact from anterior fusion plate in the pelvis. REPRODUCTIVE: Uterus surgically absent. No obvious adnexal masses. No free fluid. OSSEOUS: Anterior fusion plate at the level the symphysis pubis evident. No fractures. Mild degenerative anterolisthesis L4 upon L5. IMPRESSION: 1. There is again noted mild prominence of the right upper renal collecting system without evidence o f obvious radiopaque calculi and no gross dilatation of the ureter. No solid masses nor cysts seen i n either kidney. The urinary bladder is again noted be partially obscured by beam hardening artifact from fusion plate in the anterior osseous pelvis. 2. Sigmoid diverticulosis. No obvious acute diverticulitis. 3. Uterus surgically absent. No obvious adnexal masses. Discussed with ER physician RADIATION DOSE DELIVERED: Total DLP DATA REPOSITORY: All CT scans at this facility are submitted to the National Radiology Data Registry (NRDR) Dose Index Registry (DIR) with the [employer] (A[employer]). RADIATION OPTIMIZATION: All CT scans at this facility use at least one of these dose optimization te chniques: automated exposure control; mA and/or kV adjustment per patient size (includes targeted exa ms where dose is matched to clinical indication); or iterative reconstruction.
== END 2023-02-13 12:31 | disposition home or self-care (01) ==
PROVIDERS: Emergency Provider Physician Assistant; PCP Nurse Practitioner Family
DX: R10.9 Unspecified abdominal pain (principal); N39.0 Urinary tract infection, site not specified; I10 Essential (primary) hypertension; E78.5 Hyperlipidemia, unspecified; K57.30 Diverticulosis of large intestine without perforation or abscess without bleeding; Z87.891 Personal history of nicotine dependence
CPT/HCPCS: 80053; 87077; 99284; 74176; 81003; 81015; 85025; 87086; 87186

== ENCOUNTER 2023-02-22 22:24 | Emergency (ER) | payer MEDICARE, SELFPAY ==
[2023-02-22] VITALS (8 sets, daily range): BP systolic 171–186; BP diastolic 65–68; PULSE 53–65; RESP 12–18; TEMP 36.4; O2SAT 78–99
--- NOTE | 2023-02-22 22:45 | DI.CT_ITS ---
Exam(s) CT ABDOMEN PELVIS W EXAM: CT ABDOMEN PELVIS W CLINICAL HISTORY: upper abdominal TTP. TECHNIQUE: Imaging Protocol: Axial computed tomography images with coronal and sagittal reformatted images were created and reviewed CONTRAST MATERIAL: Intravenous: Omnipaque 350 Contrast volume:80 ml Oral: no COMPARISON: CT CT ABDOMEN PELVIS W from 12/06/[address] ABDOMEN PELVIS WO from 01/27/[address] RENAL COLIC WO from 02/13/2023 FINDINGS: ABDOMEN and PELVIS: Lung Bases: No acute findings. Liver: Normal density. No measurable mass. Gallbladder and biliary tract: Status post cholecystectomy. Stable mild biliary dilatation. Pancreas: Normal density. No abnormal calcifications or inflammatory process. No evidence of mass. Spleen: Normal. Kidneys: Normal size, contour and axis. No radiodense stones. Stable mild dilatation of right renal pelvis. No obstructive uropathy. No suspicious masses seen. Adrenal glands: No masses seen. Vasculature: Abdominal aorta non-dilated. Atherosclerotic changes. Soft tissues: Unremarkable. Bladder: Nearly empty. Not able to be evaluated Bowel: Diverticulosis. No evidence of diverticulitis. Increased quantity of stool throughout consis tent with constipation. No obstruction. No bowel wall thickening. Appendix normal. Peritoneal cavity: No ascites. No focal collection or mesenteric inflammatory response. Bones: Hardware noted at anterior pelvis creating artifact. Degenerative changes in the spine. No c ompression fractures. Reproductive organs: Status post hysterectomy. Lymph nodes: Unremarkable. IMPRESSION:: No acute abnormality. Diverticulosis without evidence of diverticulitis. Increased st ool consistent with constipation RADIATION DOSE DELIVERED: Total DLP DATA REPOSITORY: All CT scans at this facility are submitted to the National Radiology Data Registry (NRDR) Dose Index Registry (DIR) with the [employer] (ACR). RADIATION OPTIMIZATION: All CT scans at this facility use at least one of these dose optimization te chniques: automated exposure control; mA and/or kV adjustment per patient size (includes targeted exa ms where dose is matched to clinical indication); or iterative reconstruction.
--- NOTE | 2023-02-22 22:57 | ED.GENADUL_ITS ---
Discharge Plan Disposition Patient Disposition: Home Condition: Good Discharge Details Clinical Impression: Gastritis, Constipation Primary Care Provider: Jason Huff ED Provider: Isabella Bob Home Meds and New Rx's Prescriptions: No Action ICaps AREDS2 (copper citrate) 250 mg-200 unit -12.5 mg-1 mg tablet 1 tab PO BID famotidine 20 mg tablet 20 mg PO QHS Qty: 90 3RF omeprazole 40 mg capsule,delayed release(DR/EC) 40 mg PO DAILY Qty: 90 2RF albuterol sulfate 90 mcg/actuation HFA aerosol inhaler 1 - 2 inh IH Q6H PRN (Reason: shortness of breath or wheezing) Qty: 8.5 6RF vitamins A,C,X-zkrj-zqmqez 7,160-113-100 iqsw-kf-xpok tablet,delayed release (DR/EC) PO estradiol 0.01 % (0.1 mg/gram) cream 1 g vaginal DAILY Qty: 42.5 2RF Rx Instructions: local application daily for one week and then 3 times per week metoprolol tartrate 25 mg tablet 25 mg PO BID Qty: 180 3RF ondansetron HCl 4 mg tablet 4 mg PO Q8H PRN (Reason: nausea and vomiting) Qty: 21 0RF simvastatin 10 mg tablet 5 mg PO QHS Qty: 45 3RF simvastatin 5 mg tablet 5 mg PO DAILY Patient Comments: TAKE ONE TABLET BY MOUTH AT BEDTIME ferrous sulfate 325 mg (65 mg iron) tablet,delayed release (DR/EC) 325 mg PO .QOD Patient Comments: TAKE ONE TABLET BY MOUTH EVERY OTHER DAY cefpodoxime 200 mg tablet 200 mg PO BID 10 Days Qty: 20 0RF Rx Instructions: must administer with a meal/food Discharge Instructions Instructions: Gastritis (ED), Constipation (ED) Additional Instructions: Continue taking miralax at home to help with constipation. Avoid NSAIDs like ibuprofen or naproxen. Call your primary care doctor on Friday to schedule an appointment to follow up on your visit today. Also followup with your GI doctor. Return to the emergency department for new or worsening symptoms including fever, new/different/worse pain, vomiting, feeling like you are going to pass out, blood in your stool, or if you have any other concerns. Referrals: Jason Huff NP [Primary Care Provider] - Medical Decision Making 87yo F with hx of GERD, diverticulitis, hyponatremia, presenting for nausea and abdominal pain. History from patient and children at bedside. Uncertain last bowel movement; children report that she has been having some diarrhea, patient thinks it may have been up to 3 days since she had a bowel movement. No bloody stool. Some nausea , no vomiting. Hypertensive on arrival, vital signs otherwise reassuring. On exam she does have upper abdominal and epigastric tenderness to palpation, no involuntary guarding. Will give zofran for nausea. Given age and inability to clarify history, will get labs and CT imaging. Labs reviewed as below, CBC reassuring with no leukocytosis, CMP with hyponatremia to 125 (somewhat slower than baseline on [facility] record review but not egregiously so), lipase normal and not suggestive of pancreatitis. CT abd/pelvis independently reviewed, no obstruction or free air on my view, agree with radiology read below with constipation, gastritis, right renal collecting system dilation. Symptoms not consistent with kidney stone/obstructive pain currently and LFTs are not concerning; would not further pursue these. Favor gastritis and constipation. On reassessment she remains well appearing with reassuring vital signs, tolerated PO. Advised followup with PCP for hyponatremia and hyper tension, as well as with GI (already has appointment scheduled from prior referral). Discharged home; discharge instructions including return precautions were reviewed with patient and family who verbalized understanding. All questions were answered and they are in full agreement with the plan. Medical Records Medical records reviewed: Yes I reviewed the patient's medical records. Imaging Data Radiologic Study: Imaging: CT Scan Radiologist's impression: IMPRESSION: 1. Intrahepatic biliary ductal dilatation without dilatation of the common bile duct. Consider possible stricture at the junction of the common hepatic duct and common bile duct. This may be better demonstrated on MRCP, if clinically indicated. 2. Thickening of the gastric rugae that may be secondary to gastritis or underdistension. 3. Worsening fullness of the right renal collecting system and ureter of indeterminate etiology. Consider noncalcified ureteral calculus, ureteral or ureteropelvic junction stricture, either benign or neoplastic. 4. Moderate fecal stasis throughout the colon suggestive of constipation. Lab Data Lab results reviewed: Yes I reviewed the patient's lab results. Labs: Laboratory Tests Range/Units 02/22/23 23:08 WBC (4.4-10.8) 10^3/uL 5.11 RBC (3.93-5.22) 10^6/uL 3.95 Hgb (11.2-15.7) g/dL 11.6 Hct (36.0-46.0) % 34.4 L MCV (80-95) fL 87 MCH (27.0-33.0) pg 29.4 MCHC (32.0-36.0) % 33.7 RDW (11.7-14.6) % 12.7 Plt Count (130-400) 10^3/uL 179 MPV (8.0-11.0) fL 9.4 Immature Gran % 0.4 Neutrophils % 66.1 Lymphocytes % 18.8 Monocytes % 13.5 Eosinophils % 0.8 Basophils % 0.4 Nucleated RBC % (0.0-0.3) % 0.0 Absolute Neutrophils (1.2-6.7) 10^3/uL 3.38 Absolute Lymphocytes (1.2-3.4) 10^3/uL 0.96 L Absolute Monocytes (0.1-0.8) 10^3/uL 0.69 Absolute Eosinophils (0.0-0.7) 10^3/uL 0.04 Absolute Basophils (0.0-0.2) 10^3/uL 0.02 Sodium (136-145) mmol/L 125 L Potassium (3.5-5.1) mmol/L 4.3 Chloride (98-107) mmol/L 92 L Carbon Dioxide (21.0-32.0) mmol/L 28.8 Anion Gap (3-11) mmol/L 4.2 BUN (7-18) mg/dL 12 Creatinine (0.55-1.02) mg/dL 0.8 Est GFR (CKD-EPI 2020) (mL/min/1.73m2) 72.16 Glucose (74-106) mg/dL 100 Calcium (8.5-10.1) mg/dL 8.7 Total Bilirubin (0.2-1.0) mg/dL 0.5 AST (15-37) U/L 33 ALT (14-59) U/L 30 Alkaline Phosphatase (46-116) U/L 96 Total Protein (6.4-8.2) g/dL 6.7 Albumin (3.4-5.0) g/dL 3.5 Lipase (16-77) U/L 69 HPI General Mode of arrival: ambulatory . Date/Time Provider Initiated Documentation: 02/22/23 22:27 . Limitations to Documentation: no limitations . Information obtained by: patient and family . HPI Narrative: 87yo F with hx of GERD, diverticulitis, hyponatremia, presenting for nausea and abdominal pain. History from patient and children at bedside. Uncertain last bowel movement; children report that she has been having some diarrhea, patient thinks it may have been up to 3 days since she had a bowel movement. No bloody stool. Some nausea , no vomiting. Upper abdominal pain which she often has but seems worse than usual. No sick contacts. She is otherwise in her usual state of health with no fevers, chills, rash, chest pain, shortness of breath, LE edema, or other concerns. Related Data Home Medications Medication Instructions Recorded Confirmed metoprolol tartrate 25 mg tablet 25 mg PO BID #180 tab-caps 02/26/22 02/18/23 ondansetron HCl 4 mg tablet 4 mg PO Q8H PRN nausea and 02/26/22 02/18/23 vomiting #21 tabs vit C 250 mg-vit E 200 unit-zinc 1 tab PO BID 07/08/22 02/18/23 12.5 mg-copper 1 kh-ffu-weojru tablet (ICaps AREDS2 (copper citrate)) simvastatin 10 mg tablet 5 mg (1/2 x 10 mg) PO QHS #45 09/03/22 02/18/23 tab-caps albuterol sulfate 90 mcg/actuation 1 - 2 inh inhalation Q6H PRN 11/19/22 02/18/23 aerosol inhaler shortness of breath or wheezing #8.5 grams famotidine 20 mg tablet 20 mg PO QHS #90 tabs 11/19/22 02/18/23 omeprazole 40 mg capsule,delayed 40 mg PO DAILY #90 caps 11/19/22 02/18/23 release vit A 7,160 unit-C 113 mg-E 100 tab PO 01/24/23 02/18/23 pqvq-bwjj-xisryt tablet,delayed rel. ferrous sulfate 325 mg (65 mg 325 mg PO .QOD 01/27/23 02/18/23 iron) tablet,delayed release simvastatin 5 mg tablet 5 mg PO DAILY 01/27/23 02/18/23 cefpodoxime 200 mg tablet 200 mg PO BID UTI 10 days #20 tabs 02/13/23 02/18/23 estradiol 0.01% (0.1 mg/gram) 1 g vaginal DAILY #42.5 grams 02/18/23 02/18/23 vaginal cream Previous Rx's Medication Instructions Recorded metoprolol tartrate 25 mg tablet 25 mg PO BID #180 tab-caps 02/26/22 ondansetron HCl 4 mg tablet 4 mg PO Q8H PRN nausea and 02/26/22 vomiting #21 tabs simvastatin 10 mg tablet 5 mg (1/2 x 10 mg) PO QHS #45 09/03/22 tab-caps albuterol sulfate 90 mcg/actuation 1 - 2 inh inhalation Q6H PRN 11/19/22 aerosol inhaler shortness of breath or wheezing #8.5 grams famotidine 20 mg tablet 20 mg PO QHS #90 tabs 11/19/22 omeprazole 40 mg capsule,delayed 40 mg PO DAILY #90 caps 11/19/22 release cefpodoxime 200 mg tablet 200 mg PO BID UTI 10 days #20 tabs 02/13/23 estradiol 0.01% (0.1 mg/gram) 1 g vaginal DAILY #42.5 grams 02/18/23 vaginal cream Allergies Allergy/AdvReac Type Severity Reaction Status Date / Time ciprofloxacin [From Cipro] Allergy Intermediate Lips and Verified 02/18/23 15:51 face burn, feels shaky, arm tingly codeine AdvReac Intermediate Dizziness/L Verified 02/18/23 15:51 ightheade lovastatin AdvReac Intermediate myalgias Verified 02/18/23 15:51 oxycodone AdvReac Intermediate NAUSEA, GI Verified 02/18/23 15:51 UPSET azithromycin AdvReac cramping, Verified 02/18/23 15:51 anorexia doxycycline AdvReac Nausea, Verified 02/18/23 15:51 Vomiting hydrocodone AdvReac unknown Verified 02/18/23 15:51 General Stated Complaint: Abd Prob MELINDA: 3 Review of Systems Narrative: see HPI PFSH All Active Problems (Updated 02/23/23 @ 01:24 by Isabella Bob MD) Constipation (Acute) Gastritis (Acute) Urinary tract infection (Acute) Abdominal pain (Acute) Dysuria (Acute) Sore in nose (Acute) LUQ abdominal pain (Acute) Serrated adenoma of colon (Acute ~07/18/22) Neck pain on right side (Acute) Perforated diverticulum (Chronic) Dermatitis (Acute) Vaginitis, atrophic (Acute) Hyponatremia (Chronic) Multiple occasions last of which was 01/2021, 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 intestinal meta. or dysplasia Family history of GI malignancy Essential hypertension (01/14/13) Depressive disorder Atrophic vaginitis (08/19/11) Pt. states she is unsure [place]; rib fracture; lacerated liver; fx-pelvis; perf. intestine Family history of GI malignancy Surgical History KNEE SURGERY (~05/2012) Abdominal hysterectomy EGD - MAC (04/22/17) Colonoscopy - MAC (04/22/17) Colonoscopy - MAC () Cholecystectomy Bladder Surgery Bilateral salpingectomy with oophorectomy Arthroplasty of knee (05/27/12) LEFT - Pt denies knee replacement Family History Mother , AGE 84 Heart disease Father , AGE 87 Stroke Heart disease Cancer Sister Stroke Brother Alcohol abuse Cancer Brother Cancer of kidney Son Hyperlipidemia Pulmonary disease Daughter Thyroid disease Daughter Cancer s/p hysterectomy Daughter No problems noted. Daughter No problems noted. Brother No problems noted. Maternal Grandfather No problems noted. Paternal Grandfather No problems noted. Maternal Grandmother No problems noted. Paternal Grandfather No problems noted. Social History Smoking/Tobacco Use Status: Former Tobacco Use tobacco type: cigarettes Quit Date: 03/17/97 Second Hand Exposure: Yes Smoking risk assessment performed?: Yes Alcohol Intake: never Drug use: Never Substance use type: does not use Communication Needs: Hard of Hearing Do you need help understanding health information?: Often Pets and animals: No Sexually active: No Do you think of yourself as: straight/heterosexual Current gender identity: female What is your relationship status?: How often do you talk on the phone with friends or family?: decline to answer How often do you attend voodoo or yazidism services?: decline to answer Do you belong to any clubs or organized social groups?: decline to answer Panel score (0-1 are the most socially isolated patients): 0 What type of physical activity do you participate in: walking Carri/Yazidi: No preference Special carri needs: No Drive intox 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 Head: Normocephalic, atraumatic Neck: Trachea midline, Neck supple. ENT: MMM. Cardiac: RRR, no murmurs appreciated Resp: No respiratory distress. CTAB. Abd: Soft, non-distended, mild epigastric tenderness to palpation with no involuntary guarding. : No suprapubic tenderness. Extremities: No deformities. No peripheral edema. Neurologic: GCS 15. Moves all extremities freely against gravity Course Vital Signs Vital signs: Vital Signs Temperature 36.4 C L 02/22/23 22:35 Pulse 61 02/22/23 22:35 Respiratory Rate 18 02/22/23 22:35 Blood Pressure 186/68 H 02/22/23 22:35 Temperature 36.4 C L 02/22/23 22:35 Pulse 61 02/22/23 22:35 Respiratory Rate 18 02/22/23 22:35 Respiratory Effort Normal 02/22/23 22:40 Blood Pressure 186/68 H 02/22/23 22:35 Pain Level 6 02/22/23 22:35
[2023-02-22 23:15] LABS: Abs Immature Grans 0.02 10^3/uL (0.0-0.06); Absolute Basophil Count 0.02 10^3/uL (0.0-0.2); Absolute Eosinophil Count 0.04 10^3/uL (0.0-0.7); Absolute Lymphocyte Count 0.96 10^3/uL (1.2-3.4); Absolute Monocyte Count 0.69 10^3/uL (0.1-0.8); Absolute Neutrophil Count 3.38 10^3/uL (1.2-6.7); Basophils % 0.4; Eosinophils % 0.8; HCT 34.4 % (36.0-46.0); HGB 11.6 g/dL (11.2-15.7); Immature Grans % 0.4; Lymphocytes % 18.8; MCH 29.4 pg (27.0-33.0); MCHC 33.7 % (32.0-36.0); MCV 87 fL (80-95); MPV 9.4 fL (8.0-11.0); Monocytes % 13.5; Neutrophils % 66.1; Platelet Count 179 10^3/uL (130-400); RBC 3.95 10^6/uL (3.93-5.22); RDW 12.7 % (11.7-14.6); WBC 5.11 10^3/uL (4.4-10.8)
[2023-02-22] MEDS: Ondansetron 4 MG/2 ML VIAL IVP (23:19)
[2023-02-22] MEDS: Normal Saline - Diluent 50 ML VIAL IJ (23:25)
[2023-02-22] MEDS: Omnipaque 350 MG/ML 100 ML BTL IJ (23:25)
[2023-02-22 23:30] LABS: ALT 30 U/L (14-59); AST 33 U/L (15-37); Albumin 3.5 g/dL (3.4-5.0); Alkaline Phosphatase 96 U/L (46-116); Anion Gap 4.2 mmol/L (3-11); BUN 12 mg/dL (7-18); Bilirubin, Total 0.5 mg/dL (0.2-1.0); CO2 28.8 mmol/L (21.0-32.0); CREATININE 0.8 mg/dL (0.55-1.02); Calcium 8.7 mg/dL (8.5-10.1); Chloride 92 mmol/L (98-107); Estimated GFR 72.16 (mL/min/1.73m2); Glucose 100 mg/dL (74-106); Lipase 69 U/L (16-77); Potassium 4.3 mmol/L (3.5-5.1); Sodium 125 mmol/L (136-145); Total Protein 6.7 g/dL (6.4-8.2)
[2023-02-23] VITALS: PULSE 62; RESP 16; O2SAT 96
[2023-02-23 00:14] VITALS: PULSE 73; RESP 19; O2SAT 90
--- NOTE | 2023-02-23 00:19 | NUR.NOTE ---
is taking her medication that is due with food per MD.Nursing Note:
[2023-02-23 00:20] VITALS: PULSE 67; RESP 16; O2SAT 97
[2023-02-23 00:30] VITALS: PULSE 62; RESP 16; O2SAT 96
[2023-02-23 00:40] VITALS: PULSE 59; RESP 14; O2SAT 96
--- NOTE | 2023-02-23 01:03 | DI.VRAD_ITS ---
Addendum created by Gustavo Longoria MD on 02/23/2023 1:13:12 AM EST: Findings were discussed with NAYELY STARK at 02/23/2023 1:12 AM EST. Addendum created by Gustavo Longoria MD on 02/23/2023 1:07:30 AM EST: Severe stenosis of the celiac trunk. Mild stenosis of the SMA, a moderate to large caliber vessel. Patent, small caliber OLIVIA. Initial report created on 02/23/2023 1:03:16 AM EST: PROCEDURE INFORMATION: Exam: CT Abdomen And Pelvis With Contrast Exam date and time: 02/22/2023 11:22 PM Age: 87 years old Clinical indication: Abdominal tenderness and other: Upper abdominal ttp; Prior surgery; Surgery date: 6+ months; Surgery type: Pelvic TECHNIQUE: Imaging protocol: Computed tomography of the abdomen and pelvis with contrast. Contrast material: OMNIPAQUE 350; Contrast volume: 80 ml; Contrast route: INTRAVENOUS (IV); COMPARISON: CT ABDOMEN PELVIS WO 01/27/2023 7:19 AM FINDINGS: Limitations: Evaluation of the lower pelvis and bladder is severely limited by streak artifact from orthopedic hardware on the symphysis pubis and pubic rami. Lungs: There is mild right basilar atelectasis. Liver: The liver is normal in size. There are no enhancing liver masses. Gallbladder and bile ducts: There has been a cholecystectomy. There is moderate dilatation of the intrahepatic biliary radicles and common hepatic duct. The common bile duct is normal in diameter. Pancreas: The pancreas is normal. Spleen: The spleen is normal in size and density. There is a sub cm splenic cyst. Adrenal glands: The adrenal glands are normal. Kidneys and ureters: Fullness of the right renal collecting system and ureter without evidence of an obstructive calculus, within the limitations of this examination. This appears slightly worse than on the comparison study. Stomach and bowel: Thickening of the gastric rugae that may be secondary to gastritis or underdistension.There is no evidence of small bowel or colonic obstruction. Moderate fecal stasis throughout the colon suggestive of constipation. Appendix: No evidence of appendicitis. Intraperitoneal space: No free air. No significant fluid collection. Vasculature: There is moderate atherosclerotic calcification of the abdominal aorta and its branches without aneurysm. Lymph nodes: No enlarged retroperitoneal or mesenteric lymph nodes. Urinary bladder: The bladder shows a normal contour and is free of calcific opacities. Reproductive: Unremarkable as visualized. Bones/joints: Diffuse osseous demineralization. No acute fracture. Orthopedic hardware for ORIF of the pubic symphysis. No acute fracture.Multilevel degenerative disc disease without significant spinal canal stenosis.There are multilevel facet arthrosis and posterior hypertrophic bony changes with corresponding neural foraminal narrowing. Grade 1 anterolisthesis of L4 without associated fracture and presumably degenerative related. Soft tissues: Mild anasarca. IMPRESSION: 1. Intrahepatic biliary ductal dilatation without dilatation of the common bile duct. Consider possible stricture at the junction of the common hepatic duct and common bile duct. This may be better demonstrated on MRCP, if clinically indicated. 2. Thickening of the gastric rugae that may be secondary to gastritis or underdistension. 3. Worsening fullness of the right renal collecting system and ureter of indeterminate etiology. Consider noncalcified ureteral calculus, ureteral or ureteropelvic junction stricture, either benign or neoplastic. 4. Moderate fecal stasis throughout the colon suggestive of constipation. Dictated and Authenticated by: Gustavo Longoria MD. Ordering:RUCHI Mason MD
[2023-02-23 01:47] VITALS: BP 189/68; PULSE 79; RESP 18; O2SAT 95
== END 2023-02-23 01:47 | disposition home or self-care (01) ==
PROVIDERS: Emergency Provider Student in an Organized Health Care Education/Training Program; PCP Nurse Practitioner Family
DX: K29.70 Gastritis, unspecified, without bleeding (principal); K59.00 Constipation, unspecified; I10 Essential (primary) hypertension; E78.5 Hyperlipidemia, unspecified; E87.1 Hypo-osmolality and hyponatremia; Z90.710 Acquired absence of both cervix and uterus; Z87.891 Personal history of nicotine dependence; Z79.899 Other long term (current) drug therapy
CPT/HCPCS: 80053; 83690; 96374; 99285; 74177; 85025; 99284; J2405; J3490

== ENCOUNTER 2023-02-25 13:01 | Inpatient (IN) | payer MEDICARE, SELFPAY ==
[2023-02-25] VITALS (24 sets, daily range): BP systolic 166–190; BP diastolic 69–75; PULSE 65–68; RESP 16–18; TEMP 36.3–37.8; O2SAT 91–97
[2023-02-25] MEDS: FAMOTIDINE 20 MG in Normal Saline 100 ML 400 MG IVPB (14:50)
[2023-02-25 14:58] LABS: Abs Immature Grans 0.02 10^3/uL (0.0-0.06); Absolute Basophil Count 0.01 10^3/uL (0.0-0.2); Absolute Eosinophil Count 0.03 10^3/uL (0.0-0.7); Absolute Lymphocyte Count 0.91 10^3/uL (1.2-3.4); Absolute Monocyte Count 0.58 10^3/uL (0.1-0.8); Absolute Neutrophil Count 3.91 10^3/uL (1.2-6.7); Basophils % 0.2; Eosinophils % 0.5; HCT 34.3 % (36.0-46.0); HGB 11.8 g/dL (11.2-15.7); Immature Grans % 0.4; Lymphocytes % 16.7; MCH 29.1 pg (27.0-33.0); MCHC 34.4 % (32.0-36.0); MCV 85 fL (80-95); Monocytes % 10.6; Neutrophils % 71.6; RBC 4.05 10^6/uL (3.93-5.22); RDW 12.5 % (11.7-14.6); RDW-SD 38.6 fL; WBC 5.46 10^3/uL (4.4-10.8)
--- NOTE | 2023-02-25 14:59 | ED.GENADUL_ITS ---
Discharge Plan Disposition Patient Disposition: Admit to [facility] Condition: Stable Discharge Details Clinical Impression: Hyponatremia, Pancreatitis, Abdominal pain, Dehydration Primary Care Provider: Jason Huff ED Provider: Ashley Sancehz Home Meds and New Rx's Prescriptions: No Action ICaps AREDS2 (copper citrate) 250 mg-200 unit -12.5 mg-1 mg tablet 1 tab PO BID famotidine 20 mg tablet 20 mg PO QHS Qty: 90 3RF omeprazole 40 mg capsule,delayed release(DR/EC) 40 mg PO DAILY Qty: 90 2RF albuterol sulfate 90 mcg/actuation HFA aerosol inhaler 1 - 2 inh IH Q6H PRN (Reason: shortness of breath or wheezing) Qty: 8.5 6RF vitamins A,C,I-etog-qzeewg 7,160-113-100 znyg-nq-bhde tablet,delayed release (DR/EC) PO Hold Instructions: Pt Stopped/Never Started estradiol 0.01 % (0.1 mg/gram) cream 1 g vaginal DAILY Qty: 42.5 2RF Rx Instructions: local application daily for one week and then 3 times per week metoprolol tartrate 25 mg tablet 25 mg PO BID Qty: 180 3RF simvastatin 10 mg tablet 5 mg PO QHS Qty: 45 3RF simvastatin 5 mg tablet 5 mg PO DAILY Patient Comments: TAKE ONE TABLET BY MOUTH AT BEDTIME ferrous sulfate 325 mg (65 mg iron) tablet,delayed release (DR/EC) 325 mg PO .QOD Patient Comments: TAKE ONE TABLET BY MOUTH EVERY OTHER DAY Medical Decision Making Emergent evaluation of abdominal pain. Patient was recently in the emergency department and at that time was evaluated with lab work and a CT scan. Workup did not demonstrate significant abnormalities, some mild hyponatremia. The CT scan was consistent with constipation. I do not have documentation of the [facility] visit today or there are concerns for why they sent her back to the emergency department. She is still endorsing epigastric abdominal pain. She is mildly hypertensive, but otherwise hemodynamically stable. She has no clinical signs of dehydration. Will repeat lab work today. I reviewed the CT scan from prior and I do not feel that a repeat image would be beneficial today. 1540: I reviewed the patient's lab work. CBC without leukocytosis or significant anemia. Unable to provide platelet count. Her sodium is downtrending and now 122. Chloride also decreased. This is worse from prior. Her lipase is also slightly elevated. Perhaps this is mild pancreatitis with decreased oral intake. Will send urine electrolytes and give a small fluid bolus. Will admit to the hospital for worsened electrolyte derangement and persistent abdominal pain. Medical Records Medical records reviewed: Yes I reviewed the patient's medical records. Lab Data Lab results reviewed: Yes I reviewed the patient's lab results. HPI General Date/Time Provider Initiated Documentation: 02/25/23 13:43 . Limitations to Documentation: other (Absence of caregiver) . Information obtained by: patient . HPI Narrative: 87-year-old female with past medical history including perforated diverticulitis, GERD, Sherwood's esophagus presents for evaluation of abdominal pain. She reports that has been ongoing for some time. She reports that she was sent from [facility] back to the emergency department for reevaluation. She was here a few days ago and evaluated at that time. She localizes the pain to the upper part of her abdomen. She reports that she dry heaves every morning. She is otherwise eating and drinking normally. She denies any change in her bowel or bladder. Is not able to provide any additional information to me at this time. Related Data Home Medications Medication Instructions Recorded Confirmed metoprolol tartrate 25 mg tablet 25 mg PO BID #180 tab-caps 02/26/22 02/25/23 vit C 250 mg-vit E 200 unit-zinc 1 tab PO BID 07/08/22 02/25/23 12.5 mg-copper 1 et-zok-afnqbb tablet (ICaps AREDS2 (copper citrate)) simvastatin 10 mg tablet 5 mg (1/2 x 10 mg) PO QHS #45 09/03/22 02/25/23 tab-caps albuterol sulfate 90 mcg/actuation 1 - 2 inh inhalation Q6H PRN 11/19/22 02/25/23 aerosol inhaler shortness of breath or wheezing #8.5 grams famotidine 20 mg tablet 20 mg PO QHS #90 tabs 11/19/22 02/25/23 omeprazole 40 mg capsule,delayed 40 mg PO DAILY #90 caps 11/19/22 02/25/23 release vit A 7,160 unit-C 113 mg-E 100 tab PO 01/24/23 02/24/23 ruyp-tsel-cxeiin tablet,delayed rel. ferrous sulfate 325 mg (65 mg 325 mg PO .QOD 01/27/23 02/25/23 iron) tablet,delayed release simvastatin 5 mg tablet 5 mg PO DAILY 01/27/23 02/25/23 estradiol 0.01% (0.1 mg/gram) 1 g vaginal DAILY #42.5 grams 02/18/23 02/25/23 vaginal cream Previous Rx's Medication Instructions Recorded metoprolol tartrate 25 mg tablet 25 mg PO BID #180 tab-caps 02/26/22 simvastatin 10 mg tablet 5 mg (1/2 x 10 mg) PO QHS #45 09/03/22 tab-caps albuterol sulfate 90 mcg/actuation 1 - 2 inh inhalation Q6H PRN 11/19/22 aerosol inhaler shortness of breath or wheezing #8.5 grams famotidine 20 mg tablet 20 mg PO QHS #90 tabs 11/19/22 omeprazole 40 mg capsule,delayed 40 mg PO DAILY #90 caps 11/19/22 release estradiol 0.01% (0.1 mg/gram) 1 g vaginal DAILY #42.5 grams 02/18/23 vaginal cream Allergies Allergy/AdvReac Type Severity Reaction Status Date / Time ciprofloxacin [From Cipro] Allergy Intermediate Lips and Verified 02/25/23 13:54 face burn, feels shaky, arm tingly codeine AdvReac Intermediate Dizziness/L Verified 02/25/23 13:54 ightheade lovastatin AdvReac Intermediate myalgias Verified 02/25/23 13:54 oxycodone AdvReac Intermediate NAUSEA, GI Verified 02/25/23 13:54 UPSET azithromycin AdvReac cramping, Verified 02/25/23 13:54 anorexia doxycycline AdvReac Nausea, Verified 02/25/23 13:54 Vomiting hydrocodone AdvReac unknown Verified 02/25/23 13:54 General Stated Complaint: Abd Prob MELINDA: 3 PFSH All Active Problems (Updated 02/25/23 @ 15:39 by Ashley Sanchez MD) Dehydration (Acute) Pancreatitis (Chronic) Hyponatremia (Acute) Constipation (Acute) Gastritis (Acute) Urinary tract infection (Acute) Abdominal pain (Acute) Dysuria (Acute) Sore in nose (Acute) LUQ abdominal pain (Acute) Serrated adenoma of colon (Acute ~07/18/22) Neck pain on right side (Acute) Perforated diverticulum (Chronic) Dermatitis (Acute) Vaginitis, atrophic (Acute) Hyponatremia (Chronic) Multiple occasions last of which was 01/2021, 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 intestinal meta. or dysplasia Family history of GI malignancy Essential hypertension (01/14/13) Depressive disorder Atrophic vaginitis (08/19/11) Pt. states she is unsure [place]; rib fracture; lacerated liver; fx-pelvis; perf. intestine Family history of GI malignancy Surgical History KNEE SURGERY (~05/2012) Abdominal hysterectomy EGD - MAC (04/22/17) Colonoscopy - MAC (04/22/17) Colonoscopy - MAC (~02/2012) Cholecystectomy Bladder Surgery Bilateral salpingectomy with oophorectomy Arthroplasty of knee (05/27/12) LEFT - Pt denies knee replacement Family History Mother , AGE 84 Heart disease Father , AGE 87 Stroke Heart disease Cancer Sister Stroke Brother Alcohol abuse Cancer Brother Cancer of kidney Son Hyperlipidemia Pulmonary disease Daughter Thyroid disease Daughter Cancer s/p hysterectomy Daughter No problems noted. Daughter No problems noted. Brother No problems noted. Maternal Grandfather No problems noted. Paternal Grandfather No problems noted. Maternal Grandmother No problems noted. Paternal Grandfather No problems noted. Social History Smoking/Tobacco Use Status: Former Tobacco Use tobacco type: cigarettes Quit Date: 03/17/97 Second Hand Exposure: Yes Smoking risk assessment performed?: Yes Alcohol Intake: never Drug use: Never Substance use type: does not use Communication Needs: Hard of Hearing Do you need help understanding health information?: Often Pets and animals: No Sexually active: No Do you think of yourself as: straight/heterosexual Current gender identity: female What is your relationship status?: How often do you talk on the phone with friends or family?: decline to answer How often do you attend denominational or congregational services?: decline to answer Do you belong to any clubs or organized social groups?: decline to answer Panel score (0-1 are the most socially isolated patients): 0 What type of physical activity do you participate in: walking Carri/Christian: No preference Special carri needs: No Drive intox 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 transit mixer driver: No Do you feel safe at home: Yes Do you feel safe in your relationship?: Yes Exam Narrative Exam Narrative: Review of Systems: All systems reviewed & are unremarkable except as noted in HPI and below: CONSTITUTIONAL: Alert and orienteD, hard of hearing Elderly, frail HEENT: NCAT EYES: PERRL, no conjunctival injection MOUTH Moist MM THROAT oropharynx clear CVS: RRR, No murmurs or gallops. Peripheral pulses 2+ and equal in all extremities Brisk capillary refill in all extremities. No peripheral edema RESP: Unlabored respiratory effort, Clear to auscultation bilaterally No wheezes rales or rhonchi GI: Soft, Nondistended, mild generalized tenderness without guarding or rebound MSK: Extremities with full range of motion, no deformity or TTP SKIN: Warm, Dry. No rashes or lesions. NEURO: No focal neurologic deficits. Course Vital Signs Vital signs: Vital Signs Temperature 37.8 C H 02/25/23 13:50 Pulse 68 02/25/23 13:50 Respiratory Rate 18 02/25/23 13:50 Blood Pressure 190/75 H 02/25/23 13:50 Pulse Oximetry 95 02/25/23 13:50 Temperature 37.8 C H 02/25/23 13:50 Temperature Source Temporal Artery Scan 02/25/23 13:50 Pulse 68 02/25/23 13:50 Respiratory Rate 18 02/25/23 13:50 Blood Pressure 190/75 H 02/25/23 13:50 Pulse Oximetry 95 02/25/23 13:50 Oxygen Delivery Method Room Air 02/25/23 13:50 Oxygen Flow Rate 0 02/25/23 13:50
[2023-02-25 15:04] LABS: Bilirubin Negative (Negative); Blood Negative (Negative); Clarity Clear (Clear); Glucose Negative (Negative); Ketones Trace mg/dL (Negative); Leukocyte Esterase Negative (Negative); Nitrite Negative (Negative); Specific Gravity 1.015 (1.005-1.025); Urobilinogen 0.2 mg/dL (Up to 0.2)
[2023-02-25 15:16] LABS: ALT 37 U/L (14-59); AST 40 U/L (15-37); Albumin 3.9 g/dL (3.4-5.0); Alkaline Phosphatase 104 U/L (46-116); Anion Gap 4.9 mmol/L (3-11); BUN 9 mg/dL (7-18); Bilirubin, Total 0.7 mg/dL (0.2-1.0); CO2 29.1 mmol/L (21.0-32.0); CREATININE 0.7 mg/dL (0.55-1.02); Chloride 88 mmol/L (98-107); Glucose 103 mg/dL (74-106); Lipase 86 U/L (16-77); Magnesium 1.8 mg/dL (1.8-2.4); Potassium 4.4 mmol/L (3.5-5.1); Total Protein 7.4 g/dL (6.4-8.2)
[2023-02-25 15:19] LABS: Diff Comment PLT Morph Reviewed; RBC Morphology Normal
[2023-02-25 15:23] LABS: Sodium 122 mmol/L (136-145)
[2023-02-25] MEDS: Normal Saline 500 ML IV (15:41)
[2023-02-25 17:41] LABS: Creatinine,Urine < 13.0 mg/dL; Sodium, Urine 87 mmol/L
--- NOTE | 2023-02-25 17:46 | W.PM.HP.N ---
Date of service: 02/25/23 Time of Service: 17:47 Assessment and Plan Assessment and plan (1) Hyponatremia: Status: Deleted Assessment and plan: Patient presents with NA level of 122. Has been hospitalized for Fluid restriction of 1200 cc sodium tablets repeat sodium level in 6 hours and in am and monitor. Slowly increase sodium level Urine neg for infection (2) SIADH (syndrome of inappropriate ADH production): Status: Deleted Assessment and plan: Hx of as above. Multiple hospitalizations for this. Patient is being placed on sodium tabs and should be discharged home on Education on fluid restriction (3) DVT prophylaxis: Status: Deleted Assessment and plan: subcu heparin (4) Discharge planning issues: Status: Deleted Assessment and plan: Home when medically ready discussed with Dr Jiménez History of Present Illness History of Present Illness Chief Complaint: Abdominal pain Narrative: This is an 87-year-old female with past medical history including perforated diverticulitis, GERD, Sherwood's esophagus who presented to the [facility] ED for evaluation of abdominal pain. She reported this pain has been ongoing for some time. She was here a few days ago and evaluated at that time. She went to PCP today for follow up and was sent back to the ED. She localized the pain to the upper part of her abdomen. She reported she dry heaves every morning, this is not new. She is otherwise eating and drinking normally. She denied any change in her bowel or bladder. Patient was recently in the emergency department and at that time was evaluated with lab work and a CT scan. Workup did not demonstrate significant abnormalities, some mild hyponatremia. The CT scan was consistent with constipation. We do not know why [facility] sent her to the hospital, however it might be because she is still endorsing epigastric abdominal pain. She was mildly hypertensive, but otherwise hemodynamically stable. She had no clinical signs of dehydration. CT scan from was reviewed and not repeated today. Lab work in the ED: CBC without leukocytosis or significant anemia. Unable to provide platelet count. Her sodium is downtrending and now 122 from 125. Chloride also decreased. This is worse from prior. Her lipase is also slightly elevated. Patient is placed on observation status on the medical floor, stable. Patient is DNR/DNI. Review of Systems All systems reviewed & are unremarkable except as noted in HPI and below PFSH All Active Problems (Updated 02/25/23 @ 15:39 by Ashley Sanchez MD) Dehydration (Acute) Pancreatitis (Chronic) Hyponatremia (Acute) Constipation (Acute) Gastritis (Acute) Urinary tract infection (Acute) Abdominal pain (Acute) Dysuria (Acute) Sore in nose (Acute) LUQ abdominal pain (Acute) Serrated adenoma of colon (Acute ~07/18/22) Neck pain on right side (Acute) Perforated diverticulum (Chronic) Dermatitis (Acute) Vaginitis, atrophic (Acute) Hyponatremia (Chronic) Multiple occasions last of which was 01/2021, 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 intestinal meta. or dysplasia Family history of GI malignancy Essential hypertension (01/14/13) Depressive disorder Atrophic vaginitis (08/19/11) Pt. states she is unsure [place]; rib fracture; lacerated liver; fx-pelvis; perf. intestine Family history of GI malignancy Surgical History KNEE SURGERY (~05/2012) Abdominal hysterectomy EGD - MAC (04/22/17) Colonoscopy - MAC (04/22/17) Colonoscopy - MAC (~02/2012) Cholecystectomy Bladder Surgery Bilateral salpingectomy with oophorectomy Arthroplasty of knee (05/27/12) LEFT - Pt denies knee replacement Family History Mother , AGE 84 Heart disease Father , AGE 87 Stroke Heart disease Cancer Sister Stroke Brother Alcohol abuse Cancer Brother Cancer of kidney Son Hyperlipidemia Pulmonary disease Daughter Thyroid disease Daughter Cancer s/p hysterectomy Daughter No problems noted. Daughter No problems noted. Brother No problems noted. Maternal Grandfather No problems noted. Paternal Grandfather No problems noted. Maternal Grandmother No problems noted. Paternal Grandfather No problems noted. Social History Smoking/Tobacco Use Status: Former Tobacco Use tobacco type: cigarettes Quit Date: 03/17/97 Second Hand Exposure: Yes Smoking risk assessment performed?: Yes Alcohol Intake: never Drug use: Never Substance use type: does not use Communication Needs: Hard of Hearing Do you need help understanding health information?: Often Pets and animals: No Sexually active: No Do you think of yourself as: straight/heterosexual Current gender identity: female What is your relationship status?: How often do you talk on the phone with friends or family?: decline to answer How often do you attend advent or restorationism services?: decline to answer Do you belong to any clubs or organized social groups?: decline to answer Panel score (0-1 are the most socially isolated patients): 0 What type of physical activity do you participate in: walking Carri/Lutheran: No preference Special carri needs: No Drive intox 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 tram driver: No Do you feel safe at home: Yes Do you feel safe in your relationship?: Yes Meds Allergies and Home Medications Allergies Allergy/AdvReac Type Severity Reaction Status Date / Time ciprofloxacin [From Cipro] Allergy Intermediate Lips and Verified 02/25/23 13:54 face burn, feels shaky, arm tingly codeine AdvReac Intermediate Dizziness/L Verified 02/25/23 13:54 ightheade lovastatin AdvReac Intermediate myalgias Verified 02/25/23 13:54 oxycodone AdvReac Intermediate NAUSEA, GI Verified 02/25/23 13:54 UPSET azithromycin AdvReac cramping, Verified 02/25/23 13:54 anorexia doxycycline AdvReac Nausea, Verified 02/25/23 13:54 Vomiting hydrocodone AdvReac unknown Verified 02/25/23 13:54 Home Medications Medication Instructions Recorded Confirmed Type metoprolol tartrate 25 mg tablet 25 mg PO BID #180 tab-caps 02/26/22 02/25/23 Rx vit C 250 mg-vit E 200 unit-zinc 1 tab PO BID 07/08/22 02/25/23 History 12.5 mg-copper 1 km-pxb-wjgsmm tablet (ICaps AREDS2 (copper citrate)) simvastatin 10 mg tablet 5 mg (1/2 x 10 mg) PO QHS #45 09/03/22 02/25/23 Rx tab-caps albuterol sulfate 90 mcg/actuation 1 - 2 inh inhalation Q6H PRN 11/19/22 02/25/23 Rx aerosol inhaler shortness of breath or wheezing #8.5 grams famotidine 20 mg tablet 20 mg PO QHS #90 tabs 11/19/22 02/25/23 Rx omeprazole 40 mg capsule,delayed 40 mg PO DAILY #90 caps 11/19/22 02/25/23 Rx release vit A 7,160 unit-C 113 mg-E 100 tab PO 01/24/23 02/24/23 History nzkr-vbhx-lqcinz tablet,delayed rel. ferrous sulfate 325 mg (65 mg 325 mg PO .QOD 01/27/23 02/25/23 History iron) tablet,delayed release simvastatin 5 mg tablet 5 mg PO DAILY 01/27/23 02/25/23 History estradiol 0.01% (0.1 mg/gram) 1 g vaginal DAILY #42.5 grams 02/18/23 02/25/23 Rx vaginal cream Exam Narrative Exam Narrative: General: Alert, well appearing, well nourished, in no acute distress. Head: Normocephalic, atraumatic Neck: Trachea midline, Neck supple. ENT: MMM. Cardiac: RRR, no murmurs appreciated Resp: No respiratory distress. CTAB. Abd: Soft, non-distended, mild epigastric tenderness to palpation with no involuntary guarding. : No suprapubic tenderness. Extremities: No deformities. No peripheral edema. Neurologic: GCS 15. Moves all extremities freely against gravity Results Labs 02/25/23 14:20 02/25/23 14:20 Labs: Laboratory Results - last 24 hr 02/25/23 02/25/23 02/25/23 14:20 14:20 14:40 WBC 5.46 RBC 4.05 Hgb 11.8 Hct 34.3 L MCV 85 MCH 29.1 MCHC 34.4 RDW 12.5 Plt Count MPV Immature Gran % 0.4 Neutrophils % 71.6 Lymphocytes % 16.7 Monocytes % 10.6 Eosinophils % 0.5 Basophils % 0.2 Nucleated RBC % 0.0 Absolute Neutrophils 3.91 Absolute Lymphocytes 0.91 L Absolute Monocytes 0.58 Absolute Eosinophils 0.03 Absolute Basophils 0.01 RBC Morphology Normal Sodium 122 L* Potassium 4.4 Chloride 88 L Carbon Dioxide 29.1 Anion Gap 4.9 BUN 9 Creatinine 0.7 Est GFR (CKD-EPI 2020) 84.70 Glucose 103 Calcium 9.0 Magnesium 1.8 Total Bilirubin 0.7 AST 40 H ALT 37 Alkaline Phosphatase 104 Total Protein 7.4 Albumin 3.9 Lipase Cancelled 86 H Urine Color Yellow Urine Clarity Clear Urine pH 7.0 Ur Specific [place] 1.015 Urine Protein Negative Urine Ketones Trace H Urine Blood Negative Urine Nitrite Negative Urine Bilirubin Negative Urine Urobilinogen 0.2 Ur Leukocyte Esterase Negative Ur Random Creatinine Ur Random Sodium Urine Glucose Negative 02/25/23 17:25 WBC RBC Hgb Hct MCV MCH MCHC RDW Plt Count MPV Immature Gran % Neutrophils % Lymphocytes % Monocytes % Eosinophils % Basophils % Nucleated RBC % Absolute Neutrophils Absolute Lymphocytes Absolute Monocytes Absolute Eosinophils Absolute Basophils RBC Morphology Sodium Potassium Chloride Carbon Dioxide Anion Gap BUN Creatinine Est GFR (CKD-EPI 2020) Glucose Calcium Magnesium Total Bilirubin AST ALT Alkaline Phosphatase Total Protein Albumin Lipase Urine Color Urine Clarity Urine pH Ur Specific [place] Urine Protein Urine Ketones Urine Blood Urine Nitrite Urine Bilirubin Urine Urobilinogen Ur Leukocyte Esterase Ur Random Creatinine < 13.0 Ur Random Sodium 87 Urine Glucose Last Vital Signs Temp 37.8 C H 02/25/23 13:50 Pulse 68 02/25/23 13:50 Resp 18 02/25/23 13:50 BP 190/75 H 02/25/23 13:50 Pulse Ox 95 02/25/23 13:50 Time Spent Time spent with Patient: 55-74 minutes Time was spent: preparing to see the patient(eg.review tests), obtaining and/or reviewing separately otained hiistory, ordering medications,tests, procedures, referring, communicating with other health child day care teacher, indepentently interpreting results, counseling the patient and care coordination
[2023-02-25] MEDS: Salt Supplement (BUFFERED) TAB 1 TAB PO (20:26)
[2023-02-25] MEDS: Metoprolol 12.5 MG TAB 25 MG PO (20:26)
[2023-02-25] MEDS: Enoxaparin 40 MG/0.4 ML SYR SC (20:26)
[2023-02-25] MEDS: Normal Saline 1,000 ML 100 ML IV (20:27)
[2023-02-25] MEDS: Normal Saline Flush 10 ML SYR IVP (20:27)
[2023-02-25] MEDS: Famotidine 20 MG TAB PO (21:19)
[2023-02-25] MEDS: Simvastatin 10 MG TAB 5 MG PO (21:20)
[2023-02-26] MEDS: ACETAMINOPHEN 1,000 MG/100 ML BTL 400 MG IVPB (04:13)
[2023-02-26] MEDS: Ondansetron 4 MG/2 ML VIAL IVP ×2 (04:13→12:08)
[2023-02-26] MEDS: Normal Saline 1,000 ML 100 ML IV ×2 (06:13→16:02)
[2023-02-26 06:51] LABS: Abs Immature Grans 0.02 10^3/uL (0.0-0.06); Absolute Basophil Count 0.02 10^3/uL (0.0-0.2); Absolute Eosinophil Count 0.03 10^3/uL (0.0-0.7); Absolute Lymphocyte Count 0.77 10^3/uL (1.2-3.4); Absolute Monocyte Count 0.53 10^3/uL (0.1-0.8); Basophils % 0.4; Eosinophils % 0.6; HGB 11.6 g/dL (11.2-15.7); Immature Grans % 0.4; Lymphocytes % 14.9; MCH 29.3 pg (27.0-33.0); MCHC 34.1 % (32.0-36.0); MCV 86 fL (80-95); MPV 9.5 fL (8.0-11.0); Monocytes % 10.3; Neutrophils % 73.4; Platelet Count 168 10^3/uL (130-400); RBC 3.96 10^6/uL (3.93-5.22); RDW 12.6 % (11.7-14.6); RDW-SD 39.8 fL; WBC 5.17 10^3/uL (4.4-10.8)
[2023-02-26 07:18] LABS: BUN 9 mg/dL (7-18); CREATININE 0.8 mg/dL (0.55-1.02); Calcium 8.2 mg/dL (8.5-10.1); Chloride 95 mmol/L (98-107); Estimated GFR 71.71 (mL/min/1.73m2); Glucose 122 mg/dL (74-106); Magnesium 1.8 mg/dL (1.8-2.4); Potassium 4.2 mmol/L (3.5-5.1); Sodium 128 mmol/L (136-145)
[2023-02-26 07:20] VITALS: BP 165/67; PULSE 61; RESP 18; TEMP 36.7; O2SAT 95
[2023-02-26] MEDS: Omeprazole 20 MG CAPCR 40 MG PO (08:47)
[2023-02-26] MEDS: Ferrous Sulfate 325 MG TAB PO (08:47)
[2023-02-26] MEDS: Normal Saline Flush 10 ML SYR IVP (08:47)
[2023-02-26] MEDS: Enoxaparin 40 MG/0.4 ML SYR SC (08:47)
[2023-02-26] MEDS: Metoprolol 12.5 MG TAB 25 MG PO ×2 (08:47→20:29)
[2023-02-26] MEDS: Salt Supplement (BUFFERED) TAB 1 TAB PO (08:48)
--- NOTE | 2023-02-26 08:59 | INITIAL_ITS ---
Date of service: 02/26/23 Time of Service: 08:59 Care Management Initial Assmt Initial Assessment REASON FOR HOSPITALIZATION:: Hyponatremia, abdominal pain, dehydration PREVIOUS FUNCTIONAL STATUS/SOCIAL/FAMILY SUPPORTS:: Cathy lives with her son in his single family home in [facility]. She also has her own home nearby but has been staying with him for a few years, since after a hospitalization she did not feel safe living at home, alone. Cathy has 4 other children, all daughters, two of whom live in the area and who are helpful when needed. Cathy stated that she is independent with ADLs, but when she is in pain she reports that she has t rouble understanding things. CURRENT FUNCTIONAL STATUS:: Cathy was sitting up in her chair when CM met with her. She stated that she is doing better, and that per provider, her sodium is going in the right direction. She reported that she still lives with her son. When asked how things are going, she expressed some frustration about the power going out, and her son not fixing things that he should be. Her son, Chidi, entered the room during the conversation. Chidi stated that his two local sisters help out sometimes, but that he is the primary caregiver for his mother. He admitted that he gets frustrated with her when she doesn't comprehend things, which, by her report, happens when she is in pain. CM discussed home health services, which may help support both Cathy and Chidi; Cathy stated that she will consider it. CM will continue to follow. ADVANCE DIRECTIVES:: COLST on file; Christina (daughter) listed as HCA. Has patient been provided with info about the portal/API?: Yes Did the patient sign up for the portal?: No CODE STATUS:: DNR/DNI INSURANCE COVERAGE / FINANCIAL ISSUES:: MCR. [employer] supplemental. CURRENT HOME/COMMUNITY SERVICES/EQUIPMENT:: [facility]. PRIMARY CARE PHYSICIAN:: Jason Busby POTENTIAL DISCHARGE NEEDS:: Evaluations for further needs, follow up appointments. PATIENT/FAMILY EDUCATION NEEDS:: Review discharge instructions and limitations, discussion of self care needs including ask me three. ANTICIPATED BARRIERS TO DISCHARGE:: None identified. TRANSPORTATION:: Via private vehicle by family. PLAN:: Anticipate Cathy will return home once medically cleared. One of her children will drive her home via private vehicle. She will follow up with her PCP and discharge plan of care. CM will continue to follow. 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 intestinal meta. or dysplasia Family history of GI malignancy Essential hypertension (01/14/13) Depressive disorder Atrophic vaginitis (08/19/11) Pt. states she is unsure [place]; rib fracture; lacerated liver; fx-pelvis; perf. intestine Family history of GI malignancy Surgical History KNEE SURGERY (~05/2012) Abdominal hysterectomy EGD - MAC (04/22/17) Colonoscopy - MAC (04/22/17) Colonoscopy - MAC (~02/2012) Cholecystectomy Bladder Surgery Bilateral salpingectomy with oophorectomy Arthroplasty of knee (05/27/12) LEFT - Pt denies knee replacement Family History Mother , AGE 84 Heart disease Father , AGE 87 Stroke Heart disease Cancer Sister Stroke Brother Alcohol abuse Cancer Brother Cancer of kidney Son Hyperlipidemia Pulmonary disease Daughter Thyroid disease Daughter Cancer s/p hysterectomy Daughter No problems noted. Daughter No problems noted. Brother No problems noted. Maternal Grandfather No problems noted. Paternal Grandfather No problems noted. Maternal Grandmother No problems noted. Paternal Grandfather No problems noted. Social History Smoking/Tobacco Use Status: Former Tobacco Use tobacco type: cigarettes Quit Date: 03/17/97 Second Hand Exposure: Yes Smoking risk assessment performed?: Yes Alcohol Intake: never Drug use: Never Substance use type: does not use Housing: house Communication Needs: Hard of Hearing Do you need help understanding health information?: Often Pets and animals: No Sexually active: No Do you think of yourself as: straight/heterosexual Current gender identity: female What is your relationship status?: How often do you talk on the phone with friends or family?: decline to answer How often do you attend sabianism or yazdanism services?: decline to answer Do you belong to any clubs or organized social groups?: decline to answer Panel score (0-1 are the most socially isolated patients): 0 What type of physical activity do you participate in: walking Carri/Methodist: No preference Special carri needs: No Drive intox 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 production truck driver: No Do you feel safe at home: Yes Do you feel safe in your relationship?: Yes
--- NOTE | 2023-02-26 11:13 | PGE_ITS ---
Date of Service Date of service: 02/26/23 Time of Service: :13 Assessment and Plan Assessment and plan (1) Hyponatremia: Status: Deleted Assessment and plan: Admitted with Na level of 122 today at 128, correction will most likely continue and resulting with a Na level > 130 as per BMP results this PM We will continue fluid restriction of 1200 cc, counselling provided on drinking soup or broth VS water Continue sodium tablets BMP in AM (2) SIADH (syndrome of inappropriate ADH production): Status: Deleted Assessment and plan: Urine sodium was 87, in SIADH urine sodium is most likely >40, we also had a serum Osmo of about 254; will complete the NS 1 liter and complete another urine sodium Continue education on fluid restriction (3) DVT prophylaxis: Status: Deleted Assessment and plan: Continue LMWH (4) Constipation: Status: Acute Assessment and plan: Initiating scheduled Docusate Miralax ordered X1 dose + PRN As per CT on 02/25: Bowel: Diverticulosis. No evidence of diverticulitis. Increased quantity of stool throughout consistent with constipation. No obstruction. No bowel wall thickening. Appendix normal. (5) Discharge planning issues: Status: Deleted Assessment and plan: Home when medically ready, probable d/c on 02/[address] Jiménez Subjective Subjective Interval history since last seen: The patient reports sleeping well, feeling better, moving her bowels, having had nausea at breakfast and not eating her whole meal due to lack of salt. Patient reported abdominal pain during breakfast time, subsiding by the time the patient was seen. Patient denies fever, night sweats, shortness of breath, vomiting or dysuria. Exam Narrative Exam Narrative: Constitutional The patient is sitting in chair and cooperative during the interview. The patient is alert and oriented x 3, without acute distress and has thin body habitus HENMT: Head is normocephalic with nor,al appearing facial structures Neck: Normal ROM Neuro:alert and oriented to self, person, place, time and situation, forgetfull at times. No neurological focal deficit noted Resp: Normal respiratory pattern, speaks in full sentences, unlabored breathing, clear lung bilaterally but diminished right base Cardio: regular rhythm, S1, S2, no murmur, capillary refill<3 sec., bilateral radial and dorsalis pedis pulses are positive, palpable GI: Abdomen is not distended, soft and non tender, bowel sounds are present : No bladder distension Back/spine/Pelvis: No back tenderness Integumentary: No skin lesions or rash Psych: RASS 0, congruent mood and normal affect. Objective Last Vital Signs Temp 36.7 C 02/26/23 07:20 Pulse 61 02/26/23 07:20 Resp 18 02/26/23 07:20 BP 165/67 H 02/26/23 07:20 Pulse Ox 95 02/26/23 07:20 Laboratory Results - last 24 hr 02/25/23 02/25/23 02/25/23 14:20 14:20 14:40 WBC 5.46 RBC 4.05 Hgb 11.8 Hct 34.3 L MCV 85 MCH 29.1 MCHC 34.4 RDW 12.5 Plt Count MPV Immature Gran % 0.4 Neutrophils % 71.6 Lymphocytes % 16.7 Monocytes % 10.6 Eosinophils % 0.5 Basophils % 0.2 Nucleated RBC % 0.0 Absolute Neutrophils 3.91 Absolute Lymphocytes 0.91 L Absolute Monocytes 0.58 Absolute Eosinophils 0.03 Absolute Basophils 0.01 RBC Morphology Normal Sodium 122 L* Potassium 4.4 Chloride 88 L Carbon Dioxide 29.1 Anion Gap 4.9 BUN 9 Creatinine 0.7 Est GFR (CKD-EPI 2020) 84.70 Glucose 103 Calcium 9.0 Magnesium 1.8 Total Bilirubin 0.7 AST 40 H ALT 37 Alkaline Phosphatase 104 Total Protein 7.4 Albumin 3.9 Lipase Cancelled 86 H Urine Color Yellow Urine Clarity Clear Urine pH 7.0 Ur Specific [place] 1.015 Urine Protein Negative Urine Ketones Trace H Urine Blood Negative Urine Nitrite Negative Urine Bilirubin Negative Urine Urobilinogen 0.2 Ur Leukocyte Esterase Negative Ur Random Creatinine Ur Random Sodium Urine Glucose Negative 02/25/23 02/26/23 17:25 06:30 WBC 5.17 RBC 3.96 Hgb 11.6 Hct 34.0 L MCV 86 MCH 29.3 MCHC 34.1 RDW 12.6 Plt Count 168 MPV 9.5 Immature Gran % 0.4 Neutrophils % 73.4 Lymphocytes % 14.9 Monocytes % 10.3 Eosinophils % 0.6 Basophils % 0.4 Nucleated RBC % 0.0 Absolute Neutrophils 3.80 Absolute Lymphocytes 0.77 L Absolute Monocytes 0.53 Absolute Eosinophils 0.03 Absolute Basophils 0.02 RBC Morphology Sodium 128 L Potassium 4.2 Chloride 95 L Carbon Dioxide 28.0 Anion Gap 5.0 BUN 9 Creatinine 0.8 Est GFR (CKD-EPI 2020) 71.71 Glucose 122 H Calcium 8.2 L Magnesium 1.8 Total Bilirubin AST ALT Alkaline Phosphatase Total Protein Albumin Lipase Urine Color Urine Clarity Urine pH Ur Specific [place] Urine Protein Urine Ketones Urine Blood Urine Nitrite Urine Bilirubin Urine Urobilinogen Ur Leukocyte Esterase Ur Random Creatinine < 13.0 Ur Random Sodium 87 Urine Glucose Time Spent with Patient Time Spent with Patient: >50 minutes Time was spent: preparing to see the patient(eg.review tests), ordering medications,tests, procedures, referring, communicating with other health wound care center consultant, indepentently interpreting results, counseling the patient and care coordination
[2023-02-26] MEDS: Docusate Sodium 100 MG CAP PO ×3 (12:09→20:29)
[2023-02-26 13:04] LABS: Sodium, Urine 111 mmol/L
[2023-02-26] MEDS: Polyethylene Glycol 3350 17 GM PACKET PO (14:07)
[2023-02-26 14:24] LABS: Anion Gap 2.9 mmol/L (3-11); BUN 9 mg/dL (7-18); CO2 29.1 mmol/L (21.0-32.0); CREATININE 0.8 mg/dL (0.55-1.02); Calcium 8.1 mg/dL (8.5-10.1); Chloride 96 mmol/L (98-107); Estimated GFR 71.71 (mL/min/1.73m2); Glucose 135 mg/dL (74-106); Potassium 3.9 mmol/L (3.5-5.1); Sodium 128 mmol/L (136-145)
[2023-02-26 15:08] VITALS: BP 162/75; PULSE 55; RESP 18; TEMP 36.9; O2SAT 95
[2023-02-26] MEDS: Simvastatin 10 MG TAB 5 MG PO (20:29)
[2023-02-26] MEDS: Acetaminophen 325 MG TAB PO (20:29)
[2023-02-26] MEDS: Famotidine 20 MG TAB PO (20:30)
[2023-02-26] MEDS: QUEtiapine 25 MG TAB PO (22:20)
[2023-02-27 01:55] VITALS: BP 148/69; PULSE 93; RESP 16; TEMP 36.6; O2SAT 93
[2023-02-27 07:35] VITALS: BP 159/67; PULSE 60; RESP 18; TEMP 36.7; O2SAT 92
[2023-02-27] MEDS: Metoprolol 12.5 MG TAB 25 MG PO ×2 (07:50→20:45)
[2023-02-27] MEDS: Enoxaparin 40 MG/0.4 ML SYR SC (07:50)
[2023-02-27] MEDS: Normal Saline Flush 10 ML SYR IVP ×2 (07:50→20:45)
[2023-02-27] MEDS: Omeprazole 20 MG CAPCR 40 MG PO (07:50)
[2023-02-27] MEDS: Polyethylene Glycol 3350 17 GM PACKET PO (07:50)
[2023-02-27] MEDS: Docusate Sodium 100 MG CAP PO (07:50)
[2023-02-27 08:57] LABS: Anion Gap 5.5 mmol/L (3-11); BUN 6 mg/dL (7-18); CO2 28.5 mmol/L (21.0-32.0); CREATININE 0.8 mg/dL (0.55-1.02); Calcium 8.4 mg/dL (8.5-10.1); Chloride 99 mmol/L (98-107); Estimated GFR 71.71 (mL/min/1.73m2); Glucose 80 mg/dL (74-106); Sodium 133 mmol/L (136-145)
[2023-02-27 10:25] LABS: RBC 3.75 10^6/uL (3.93-5.22)
[2023-02-27 10:26] LABS: Abs Immature Grans 0.01 10^3/uL (0.0-0.06); Absolute Basophil Count 0.03 10^3/uL (0.0-0.2); Absolute Eosinophil Count 0.08 10^3/uL (0.0-0.7); Absolute Lymphocyte Count 1.13 10^3/uL (1.2-3.4); Absolute Monocyte Count 0.55 10^3/uL (0.1-0.8); Basophils % 0.7; Eosinophils % 1.8; HCT 32.9 % (36.0-46.0); HGB 11.2 g/dL (11.2-15.7); Immature Grans % 0.2; Lymphocytes % 25.1; MCH 29.9 pg (27.0-33.0); MCV 88 fL (80-95); MPV 9.8 fL (8.0-11.0); Monocytes % 12.2; Platelet Count 169 10^3/uL (130-400); RDW 12.9 % (11.7-14.6); RDW-SD 41.7 fL
--- NOTE | 2023-02-27 12:06 | PDOC.HHF2F ---
Home Health Referral Home Health Orders Medical diagnosis necessitation home health referral: This is an 87-year-old female with past medical history including perforated diverticulitis, GERD, Sherwood's esophagus who presented to the [facility] ED for evaluation of abdominal pain, hyponatremia, Na 122 then 133 on 02/27.On fluid restriction 1500 daily. Will need BMP on 03/02 and BP check and results to her PCP, please. Registered Nurse: Check all that apply Instruct on new or changed medication(s)/assess compliance: Ordered Assess for exacerbation of medical condition, instruct patient/caregivers on signs and symptoms to report for early detection: Ordered Home Bound Status Describe why leaving home would require a considerable and taxing effort: Requires frequent rest periods Encounter Date and Reason: I certify that a FTF encounter for this patient was performed on February 27, 2023 and that such encounter was related to the primary reason the patient requires home health services. The encounter was conducted in the following manner: By me as the certifying physician, WAITER/WAITRESS DINING CAR, PA or By an inpatient physician, WAITER/WAITRESS DINING CAR or PA during an inpatient stay who communicated findings to me, Certification And Authentication I certify that I composed the above information based on my clinical judgment relating to this patient's medical condition and, if applicable, clinical findings communicated to me by the NPP or inpatient physician who performed the FTF encounter. Name of Provider that will be monitoring home health services: PCP
--- NOTE | 2023-02-27 12:48 | W.PM.PROGNOT ---
Date of Service Date of service: 02/27/23 Time of Service: 12:49 Assessment and Plan Assessment and plan (1) Hyponatremia: Status: Deleted Assessment and plan: Na 133 today w/o confusion ,admitted with Na level of 122 We will continue fluid restriction of 1200 cc; patient could reiterate that FR had to do with her sodium level after education, will continue counselling, and complete a dietary consultation Continue sodium tablets BMP in AM (2) SIADH (syndrome of inappropriate ADH production): Status: Deleted Assessment and plan: Increasingly elevated sodium levels as sodium was replete via IVF, NS stopped and Na up to 133, not excluding SIADH, but correction is adequate Continue fluid restriction education on fluid restriction (3) DVT prophylaxis: Status: Deleted Assessment and plan: Continue LMWH (4) Generalized weakness: Status: Acute Assessment and plan: Not as strong as her usual will order PT Might benefit form STR (5) Discharge planning issues: Status: Deleted Assessment and plan: Home when medically ready, probable d/c ON 02/28 with Home Health VS short term rehab. discussed with Dr Jiménez Subjective Subjective Interval history since last seen: Patient reports feeling better but not as strong as her usual, no further abdominal pain, a small bowel movement. Patient also reports not sleeping well. Patient denies night sweats, fever, shortness of breath, chest pain, nausea, vomiting. Exam Narrative Exam Narrative: Patient is sitting in the chair, her son is in the room. Patient is in no acute distress and appears well-perfused. Remains alert and oriented x 3, hearing aids in place, facial structures are well aligned. Patient speaks in full sentence, clear breath sounds bilaterally, on room air. S1-S2 heard, no murmur, pulses are positive to all 4 extremities Today abdomen is soft, nontender, not distended. No bladder distention felt, and no CVA tenderness Patient can move all 4 extremities Objective Last Vital Signs Temp 36.7 C 02/27/23 07:35 Pulse 60 02/27/23 07:35 Resp 18 02/27/23 07:35 BP 159/67 H 02/27/23 07:35 Pulse Ox 92 02/27/23 07:35 Laboratory Results - last 24 hr 02/26/23 02/26/23 02/27/23 12:43 13:58 06:25 WBC 4.50 RBC 3.75 L Hgb 11.2 Hct 32.9 L MCV 88 MCH 29.9 MCHC 34.0 RDW 12.9 Plt Count 169 MPV 9.8 Immature Gran % 0.2 Neutrophils % 60.0 Lymphocytes % 25.1 Monocytes % 12.2 Eosinophils % 1.8 Basophils % 0.7 Nucleated RBC % 0.0 Absolute Neutrophils 2.70 Absolute Lymphocytes 1.13 L Absolute Monocytes 0.55 Absolute Eosinophils 0.08 Absolute Basophils 0.03 Sodium 128 L 133 L Potassium 3.9 4.0 Chloride 96 L 99 Carbon Dioxide 29.1 28.5 Anion Gap 2.9 L 5.5 BUN 9 6 L Creatinine 0.8 0.8 Est GFR (CKD-EPI 2020) 71.71 71.71 Glucose 135 H 80 Calcium 8.1 L 8.4 L Ur Random Sodium 111 Time Spent with Patient Time Spent with Patient: >50 minutes Time was spent: preparing to see the patient(eg.review tests), ordering medications,tests, procedures, referring, communicating with other health senior care provider, indepentently interpreting results and care coordination
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
[2023-02-27 15:37] VITALS: BP 154/74; PULSE 59; RESP 18; TEMP 36.4; O2SAT 95
--- NOTE | 2023-02-27 15:44 | W.NUTRFU ---
Date of service: 02/27/23 Time of Service: 15:44 Nutrition Note NOTE: met with pt and her son per nutrition consult request regarding : education on current 1200cc fluid restriction. Pt's son seems to feel he has gotten mixed messages and says the nurses have told her she can fill her graduated drink cup full of water each day to drink from, but all other fluids need to be non-water drinks. I reinforced that 1200fluid restriction is for all fluids and most of her fluids should come from non-water sources to help bring up her sodium level (advocated for some broth, milk, gatorade). I printed out a sample for 1200cc fluids for the day (40oz) and gave this print out to Cathy which includes examples of fluids for a day - 8oz per meal, 4oz at two snack times and another 8oz between dinner and lunch. Emphasized that my all the fluid examples I gave are choices other than water except for 4-8oz per day can come from water if she feels she needs it. Cathy with moderated understanding but son seems to grasp the concept. Will follow up tomorrow to reinforce Time Spent in Nutritional Counseling and Treatment: 30 min
[2023-02-27] MEDS: Acetaminophen 325 MG TAB PO (19:36)
[2023-02-27] MEDS: Simvastatin 10 MG TAB 5 MG PO (20:45)
[2023-02-27] MEDS: Famotidine 20 MG TAB PO (20:45)
[2023-02-27] MEDS: Melatonin 3 MG TAB PO (21:44)
[2023-02-27 23:34] VITALS: BP 161/72; PULSE 61; RESP 19; TEMP 37; O2SAT 95
[2023-02-28 07:12] LABS: Abs Immature Grans 0.02 10^3/uL (0.0-0.06); Absolute Basophil Count 0.03 10^3/uL (0.0-0.2); Absolute Eosinophil Count 0.06 10^3/uL (0.0-0.7); Absolute Lymphocyte Count 1.12 10^3/uL (1.2-3.4); Absolute Monocyte Count 0.64 10^3/uL (0.1-0.8); Absolute Neutrophil Count 5.43 10^3/uL (1.2-6.7); Basophils % 0.4; Eosinophils % 0.8; HGB 12.6 g/dL (11.2-15.7); Immature Grans % 0.3; Lymphocytes % 15.3; MCHC 33.2 % (32.0-36.0); MCV 87 fL (80-95); MPV 9.9 fL (8.0-11.0); Monocytes % 8.8; Neutrophils % 74.4; Platelet Count 187 10^3/uL (130-400); RBC 4.35 10^6/uL (3.93-5.22); RDW-SD 41.7 fL
[2023-02-28 07:23] LABS: Anion Gap 5.2 mmol/L (3-11); BUN 13 mg/dL (7-18); CO2 31.8 mmol/L (21.0-32.0); CREATININE 0.8 mg/dL (0.55-1.02); Chloride 93 mmol/L (98-107); Estimated GFR 71.71 (mL/min/1.73m2); Glucose 110 mg/dL (74-106); Magnesium 1.8 mg/dL (1.8-2.4); Potassium 4.4 mmol/L (3.5-5.1); Sodium 130 mmol/L (136-145)
[2023-02-28] MEDS: Polyethylene Glycol 3350 17 GM PACKET PO (07:30)
[2023-02-28] MEDS: Metoprolol 12.5 MG TAB 25 MG PO (07:30)
[2023-02-28] MEDS: Omeprazole 20 MG CAPCR 40 MG PO (07:30)
[2023-02-28] MEDS: Enoxaparin 40 MG/0.4 ML SYR SC (07:31)
[2023-02-28] MEDS: Normal Saline Flush 10 ML SYR IVP ×2 (07:39→21:47)
[2023-02-28] MEDS: Docusate Sodium 100 MG CAP PO (07:45)
[2023-02-28 07:46] VITALS: BP 178/74; PULSE 62; RESP 16; TEMP 36.6; O2SAT 95
[2023-02-28] MEDS: Ferrous Sulfate 325 MG TAB PO (09:00)
--- NOTE | 2023-02-28 10:36 | W.PM.PROGNOT ---
Date of Service Date of service: 02/28/23 Time of Service: 10:36 Assessment and Plan Assessment and plan (1) Hyponatremia: Status: Deleted Assessment and plan: Na 130 today w/o confusion ,admitted with Na level of 122 Fluid restriction of 1200 cc , no intake documenented and Na 130 from 133 on 02/27, FR to 1000 cc/24 hours now ; BMP in AM (2) SIADH (syndrome of inappropriate ADH production): Status: Deleted Assessment and plan: Initially partial correction on NS and FR 1200 cc,First urine sodium 87 then 111,Serum Osmo 254, not excluding SIADH, Initial correction was adequate but Na 130 from 133 Continue fluid restriction 1000 cc/24hours now,education on fluid restriction provided Will order plasma cortisol level ; also considered cosyntropin/ACTH simulation testing TSH, orthostatic VS Lipase was 86 on admit but no further abdominal pain, no N/V. CT showed no abnormal process on 02/22 (3) DVT prophylaxis: Status: Deleted Assessment and plan: Continue LMWH (4) Generalized weakness: Status: Acute Assessment and plan: Continue PT (5) Discharge planning issues: Status: Deleted Assessment and plan: Home when medically ready, probable d/c oN 03/01 with Home Health w nursing, PT, OT, BULLET LUBRICATING MACHINE OPERATOR,if Na level is normal Plan discussed with family members in room and patient, outpatient [facility] swallow scheduled fro 03/03 TYING IN MACHINE OPERATOR discussed with Dr Phillip Subjective Subjective Interval history since last seen: Patient reports feeling anxious, with some difficulty sleeping initially, reports heartburn and epigastric pain after dinner, eating well and drinking well on a fluid restriction. The patient reports having had bowel movements and voiding without difficulty. Patient denies headache, chest pain, abdominal pain, nausea, vomiting, constipation, or dysuria. The patient shows the dietary consultation document left with her as per the consult done yesterday. Exam Narrative Exam Narrative: The patient is alert and oriented x 3, but advised to count back the days to know the date. The patient Still appears to have short-term memory issues Head is normocephalic, atraumatic, facial structures well aligned. No acute respiratory distress, speaks in full sentence, clear lungs bilaterally with diminished bases S1-S2 heard, regular heart rate and rhythm, no cardiac murmur heard, positive radial and pedal pulses felt. Abdomen is soft nontender, nondistended, bowel sounds are present. No CVA tenderness, no bladder distention Strength is 5 out of 5 to all 4 extremities Objective Last Vital Signs Temp 36.6 C 02/28/23 07:46 Pulse 62 02/28/23 07:46 Resp 16 02/28/23 07:46 BP 178/74 H 02/28/23 07:46 Pulse Ox 95 02/28/23 07:46 Laboratory Results - last 24 hr 02/28/23 06:20 WBC 7.30 RBC 4.35 Hgb 12.6 Hct 38.0 MCV 87 MCH 29.0 MCHC 33.2 RDW 13.0 Plt Count 187 MPV 9.9 Immature Gran % 0.3 Neutrophils % 74.4 Lymphocytes % 15.3 Monocytes % 8.8 Eosinophils % 0.8 Basophils % 0.4 Nucleated RBC % 0.0 Absolute Neutrophils 5.43 Absolute Lymphocytes 1.12 L Absolute Monocytes 0.64 Absolute Eosinophils 0.06 Absolute Basophils 0.03 Sodium 130 L Potassium 4.4 Chloride 93 L Carbon Dioxide 31.8 Anion Gap 5.2 BUN 13 Creatinine 0.8 Est GFR (CKD-EPI 2020) 71.71 Glucose 110 H Calcium 9.0 Magnesium 1.8 Time Spent with Patient Time Spent with Patient: >50 minutes Time was spent: preparing to see the patient(eg.review tests), ordering medications,tests, procedures, referring, communicating with other health caretaker resort, indepentently interpreting results, counseling the patient and care coordination
--- NOTE | 2023-02-28 10:59 | CMPROGNOTE_ITS ---
Date of service: 02/28/23 Time of Service: 10:59 Care Management Progress Note Progress Note Text Progress Note Text: S/O: Cathy was sitting up on the edge of her bed when CM met with her. Her son, Grant was in the room visiting. Per provider, her sodium level went down today, therefore she is not ready for discharge. Cathy appeared to be more confused today, and she was not communicating as effectively as she was yesterday, which is her baseline, according to her son. Cathy continues to work with PT, who is recommending home with HH PT. CM reviewed this with Cathy and Grant, who are in agreement with the plan. CM will continue to follow. A: Cathy is a 88 year old female admitted to [facility] on 02/25/23 for hyponatremia, abdominal pain, dehydration. P: Anticipate Cathy will return home once medically cleared with new orders for HH RN, PT, OT, ROUTER MACHINE OPERATOR. Her son will drive her home via private vehicle. She will follow up with her PCP and discharge plan of care. CM will continue to follow.
[2023-02-28] MEDS: Sucralfate 1 GM TAB PO ×3 (12:20→21:47)
[2023-02-28 13:36] LABS: Lab Add On Test DONE
[2023-02-28 13:58] LABS: TSH 3.61 uIU/mL (0.36-3.74)
--- NOTE | 2023-02-28 15:09 | PT.INTREAT ---
Date of service: 02/28/23 Time of Service: 14:53 PT Notes Visit Reasons: Hyponatremia; abdominal pain; dehydration Inpatient Physical Therapy Treatment Note [facility] Date: 02/28/23 PRECAUTIONS: Fall, standard, activity as tolerated. FLUID RESTRICTION IN PLACE. SUBJECTIVE: Patient reports feeling ok, eager to go home. AFTERNOON: Patient reports being very thirsty. OBJECTIVE: supine in bed, agreeable to therapy? PAIN: none reported VITALS: monitored by nursing staff? BED MOBILITY/TRANSFERS? Rolling L/R: independent Supine-sit: independent ? Sit-supine: independent ? Sit-stand: independent ? Stand-sit: independent ? Bed-Chair: independent ? Chair-bed: independent Provided skilled cues and instruction on performance and technique throughout. Gait Training ([id number]): Direct one-on-one instruction and skilled instruction in: [] employing an assistive device [] modified weight-bearing status [x] movement sequencing [] turning and movement with proper form [] Provided verbal cues for equipment management and technique [x] Provided instruction in gait pattern [x] Patient education regarding pacing and breathing techniques to maximize activity tolerance? GAIT? Assistive Device: none ? Weight bearing: full Assist: CGA AFTERNOON: SBA ? Distance:? 200 feet AFTERNOON: 300 feet ? Deviation: notable lack of arm swing, otherwise gait largely unremarkable.? STAIRS: patient ascends and descends 3 and then 4 six inch stairs without railings to simulate home environment. Experiences LOB x1. Recommend using a cane to get in and out of the house. ? ASSESSMENT:? Patient tolerates therapy well without report of pain or dyspnea. PLAN: Continue global strengthening per plan of care until patient is medically cleared for discharge. TREATMENT CODE/TIME: 9 minutes beginning at 11:44 and 14 minutes beginning at 14:53 for a total of 23 minutes today.
[2023-02-28 15:14] LABS: Sodium, Urine 144 mmol/L
[2023-02-28 15:26] VITALS: BP 168/65; PULSE 65; RESP 18; TEMP 36.6; O2SAT 95
[2023-02-28] MEDS: Famotidine 20 MG TAB PO (21:45)
[2023-02-28] MEDS: Simvastatin 10 MG TAB 5 MG PO (21:45)
[2023-02-28] MEDS: Metoprolol 25 MG TAB PO (21:46)
[2023-02-28] MEDS: Melatonin 3 MG TAB PO (21:47)
[2023-02-28 22:02] LABS: Osmolality, Urine 540 mOsm/kg (150-1150)
[2023-02-28 23:38] VITALS: BP 154/78; PULSE 60; RESP 16; TEMP 36.6; O2SAT 95
[2023-03-01 08:13] LABS: Anion Gap 5.3 mmol/L (3-11); BUN 15 mg/dL (7-18); CO2 28.7 mmol/L (21.0-32.0); CREATININE 0.7 mg/dL (0.55-1.02); Calcium 9.1 mg/dL (8.5-10.1); Chloride 91 mmol/L (98-107); Estimated GFR 84.17 (mL/min/1.73m2); Glucose 107 mg/dL (74-106); Potassium 4.2 mmol/L (3.5-5.1); Sodium 125 mmol/L (136-145)
[2023-03-01] MEDS: Docusate Sodium 100 MG CAP PO (08:35)
[2023-03-01] MEDS: Sucralfate 1 GM TAB PO ×4 (08:35→21:05)
[2023-03-01] MEDS: Enoxaparin 40 MG/0.4 ML SYR SC (08:35)
[2023-03-01] MEDS: Omeprazole 20 MG CAPCR 40 MG PO (08:35)
[2023-03-01] MEDS: Metoprolol 25 MG TAB PO ×2 (08:35→21:05)
[2023-03-01] MEDS: Polyethylene Glycol 3350 17 GM PACKET PO (08:36)
[2023-03-01] MEDS: Normal Saline Flush 10 ML SYR IVP ×2 (08:37→21:05)
[2023-03-01] MEDS: Cosyntropin 0.25 MG VIAL IVP (09:00)
[2023-03-01 10:00] VITALS: BP 134/72; PULSE 79; RESP 17; TEMP 36.6; O2SAT 94
--- NOTE | 2023-03-01 12:50 | PT.INTREAT ---
Date of service: 03/01/23 Time of Service: 10:25 PT Notes Visit Reasons: Hyponatremia; abdominal pain; dehydration Inpatient Physical Therapy Treatment Note [facility] Date: 03/01/2023 PRECAUTIONS:Fall, standard, Activities as tolerated and Fluid restriction SUBJECTIVE: Stated she feels weak and tired today. Agreeable to PT but did not want to do too much. Would like to use her walker to walk today. OBJECTIVE: ? Pain: No reports of pain offered today. Therapeutic Activities (49002m 1). Focus on functional mobility and ambulation with FWW. Verbal and tactile cueing given throughout session. ? BED MOBILITY/TRANSFERS? Up in chair when I arrived. ? Sit-stand: independent ? Stand-sit: independent ? Bed-Chair: independent ? Chair-bed: independent? GAIT? Assistive Device: FWW ? Weight bearing: full Assist: CGA ? Distance:? 300 feet ? Deviation: Slow well controlled gait pattern noted ? STAIRS: Held on stair ambulation today due to feeling weak and shaky at conclusion of walk.? ASSESSMENT:? Patient tolerates therapy well without report of pain or dyspnea, but did complaint of feeling weak and shaky today. PLAN: Continue global strengthening per plan of care until patient is medically cleared for discharge. TREATMENT CODE/TIME: [id number], 10:25 to 10:45 (20 minutes)
--- NOTE | 2023-03-01 13:29 | W.PM.PROGNOT ---
Date of Service Date of service: 03/01/23 Time of Service: 13:29 Assessment and Plan Assessment and plan (1) Hyponatremia: Status: Acute Assessment and plan: pending cortisol and ACTH stim test; SIADH vs glucocorticoid deficiency. TSH normal and no orthostasis continue free water fluid restriction and follow labs closely (2) SIADH (syndrome of inappropriate ADH production): Status: Acute Assessment and plan: Initially partial correction with NS and fluid restriction 1200 cc, Initial correction was adequate but Na now at 125 from 130 and 133 Continue free water restriction 1000 cc/24hours pending plasma cortisol level and cosyntropin/ACTH simulation testing TSH normal at 3.6, orthostatic VS negative. (3) Abdominal pain: Status: Acute (4) Urinary tract infection: Status: Resolved Assessment and plan: treated outpatient for russ sensitive e coli with , course completed, no symptoms. (5) Generalized weakness: Status: Acute Assessment and plan: Continue PT (6) DVT prophylaxis: Status: Acute Assessment and plan: Continue LMWH (7) Discharge planning issues: Status: Acute Assessment and plan: Home when medically ready with Home Health, nursing, PT, OT, PIPING DESIGN SPECIALIST has outpatient barium swallow scheduled for 03/[address] Subjective Subjective Interval history since last seen: Patient reports still not feeling well. Reporting ongoing abdominal pain. She denies nausea. She has been stooling. Workup included a CAT scan which did show increased fecal load. She is tolerating oral. There is been no fever or further confusion. She denies any respiratory complaints no chest pain Exam Narrative Exam Narrative: Elderly female frail stated age no acute distress Head is atraumatic oral mucosas dry Neck is supple there is no JVD Cardiovascular regular rate and rhythm no peripheral edema Respirations are even and unlabored breath sounds are clear bilaterally with diminished bases Abdomen is flat soft she is guarding mass noted to upper mid abdomen reports it is tender positive bowel sounds Her extremities are without edema moves all extremities Objective Last Vital Signs Temp 36.6 C 03/01/23 10:00 Pulse 79 03/01/23 10:00 Resp 17 03/01/23 10:00 BP 134/72 03/01/23 10:00 Pulse Ox 94 03/01/23 10:00 Laboratory Results - last 24 hr 02/28/23 02/28/23 03/01/23 06:20 14:44 07:12 Sodium 125 L Potassium 4.2 Chloride 91 L Carbon Dioxide 28.7 Anion Gap 5.3 BUN 15 Creatinine 0.7 Est GFR (CKD-EPI 2020) 84.17 Glucose 107 H Calcium 9.1 TSH 3.61 Ur Random Sodium 144 Add-On Test Request DONE Time Spent with Patient Time Spent with Patient: 35-49 minutes Time was spent: preparing to see the patient(eg.review tests), obtaining and/or reviewing separately otained hiistory, ordering medications,tests, procedures, indepentently interpreting results and counseling the patient
[2023-03-01 15:17] VITALS: BP 166/71; PULSE 69; RESP 17; TEMP 36.2; O2SAT 94
[2023-03-01 20:48] VITALS: BP 149/74; PULSE 71; RESP 18; TEMP 36.2; O2SAT 98
[2023-03-01] MEDS: Melatonin 3 MG TAB PO (21:04)
[2023-03-01] MEDS: Simvastatin 10 MG TAB 5 MG PO (21:05)
[2023-03-01] MEDS: Famotidine 20 MG TAB PO (21:05)
[2023-03-01 22:01] LABS: Cortisol (Baseline) 19 ug/dL (4-23)
[2023-03-01] MEDS: Mylanta Suspension 30 ML CUP PO (23:32)
[2023-03-01 23:47] VITALS: BP 187/84; PULSE 70; RESP 18; TEMP 36.3; O2SAT 95
[2023-03-02] MEDS: Normal Saline Flush 10 ML SYR IVP ×3 (06:30→21:09)
[2023-03-02] MEDS: Ondansetron 4 MG/2 ML VIAL IVP (06:30)
[2023-03-02 06:33] VITALS: BP 156/81; PULSE 70; RESP 18; TEMP 36.4; O2SAT 95
[2023-03-02 06:49] LABS: HGB 12.6 g/dL (11.2-15.7); MCH 29.6 pg (27.0-33.0); MCV 85 fL (80-95); MPV 10.1 fL (8.0-11.0); Platelet Count 181 10^3/uL (130-400); RBC 4.26 10^6/uL (3.93-5.22); RDW 12.8 % (11.7-14.6); RDW-SD 39.6 fL; WBC 6.45 10^3/uL (4.4-10.8)
[2023-03-02 07:01] LABS: Anion Gap 6.3 mmol/L (3-11); BUN 13 mg/dL (7-18); CO2 30.7 mmol/L (21.0-32.0); CREATININE 0.8 mg/dL (0.55-1.02); Chloride 87 mmol/L (98-107); Estimated GFR 71.71 (mL/min/1.73m2); Glucose 111 mg/dL (74-106); Potassium 4.2 mmol/L (3.5-5.1)
[2023-03-02 07:04] LABS: Sodium 124 mmol/L (136-145)
[2023-03-02 08:14] VITALS: BP 165/75; PULSE 68; RESP 22; TEMP 36.4; O2SAT 95
[2023-03-02] MEDS: Omeprazole 20 MG CAPCR 40 MG PO (09:54)
[2023-03-02] MEDS: Enoxaparin 40 MG/0.4 ML SYR SC (09:54)
[2023-03-02] MEDS: Ferrous Sulfate 325 MG TAB PO (09:55)
[2023-03-02] MEDS: Metoprolol 25 MG TAB PO ×2 (09:55→21:10)
[2023-03-02] MEDS: Sucralfate 1 GM TAB PO ×3 (09:55→21:10)
--- NOTE | 2023-03-02 10:05 | W.PM.PROGNOT ---
Date of Service Date of service: 03/02/23 Time of Service: 10:05 Assessment and Plan Assessment and plan (1) Hyponatremia: Status: Acute Assessment and plan: pending cortisol and ACTH stim test; SIADH vs glucocorticoid deficiency. TSH normal and no orthostasis continue free water fluid restriction at 800 cc and follow labs closely omeprazole discontinued after pharmacy consultation. will give 1 liter of NS today, recheck labs in am. (2) SIADH (syndrome of inappropriate ADH production): Status: Acute Assessment and plan: pharmacy consultation with omeprazole discontinued as potential contributor Continue free water restriction 800 cc/24hours while work up pending pending plasma cortisol level and cosyntropin/ACTH simulation testing TSH normal at 3.6, orthostatic VS negative. (3) Abdominal pain: Status: Acute Assessment and plan: CT scan negative for source, did find increased fecal load, bowel management with several BM's daily, continue to monitor (4) Urinary tract infection: Status: Resolved Assessment and plan: treated outpatient for russ sensitive e coli with cefpodoxime , course completed, no further symptoms. (5) Generalized weakness: Status: Acute Assessment and plan: Continue PT (6) DVT prophylaxis: Status: Acute Assessment and plan: Continue LMWH (7) Discharge planning issues: Status: Acute Assessment and plan: Home when medically ready with Home Health, nursing, PT, OT, ALMOND BLANCHER OPERATOR has outpatient barium swallow scheduled for 03/[address] Phillip Subjective Subjective Patient reports: still having pain and bowel movement; denies tolerating a regular diet (poor po intake) Exam Narrative Exam Narrative: Elderly female frail stated age no acute distress Head is atraumatic oral mucosas dry Neck is supple there is no JVD Cardiovascular regular rate and rhythm no peripheral edema Respirations are even and unlabored breath sounds are clear bilaterally with diminished bases Abdomen is flat soft she is guarding mass noted to upper mid abdomen reports it is tender positive bowel sounds Her extremities are without edema moves all extremities Objective Last Vital Signs Temp 36.4 C L 03/02/23 08:14 Pulse 68 03/02/23 08:14 Resp 22 03/02/23 08:14 BP 165/75 H 03/02/23 08:14 Pulse Ox 95 03/02/23 08:14 Laboratory Results - last 24 hr 03/02/23 06:33 WBC 6.45 RBC 4.26 Hgb 12.6 Hct 36.0 MCV 85 MCH 29.6 MCHC 35.0 RDW 12.8 Plt Count 181 MPV 10.1 Sodium 124 L* Potassium 4.2 Chloride 87 L Carbon Dioxide 30.7 Anion Gap 6.3 BUN 13 Creatinine 0.8 Est GFR (CKD-EPI 2020) 71.71 Glucose 111 H Calcium 9.0 Time Spent with Patient Time Spent with Patient: 35-49 minutes Time was spent: preparing to see the patient(eg.review tests), obtaining and/or reviewing separately otained hiistory, ordering medications,tests, procedures, indepentently interpreting results and counseling the patient
--- NOTE | 2023-03-02 12:33 | PT.INTREAT ---
Date of service: 03/02/23 Time of Service: 11:00 PT Notes Visit Reasons: Hyponatremia; abdominal pain; dehydration Inpatient Physical Therapy Treatment Note [facility] Date: 03/02/2023 PRECAUTIONS: Fall, standard, Activities as tolerated and Fluid restriction SUBJECTIVE: Still not feeling very well. Stomach is still uncomfortable and having a difficult time remembering what she is getting ready to say, forgetting half way through the sentence. Head is not clear today. Is answering questions appropriately, but does have a delayed response with most questions. OBJECTIVE: ? Pain: Continued stomach discomfort. Therapeutic Activities (62701x 2). Focus on functional mobility and ambulation with FWW. Verbal and tactile cueing given throughout session. ? BED MOBILITY/TRANSFERS? Up in chair when I arrived. ? Sit-stand: independent ? Stand-sit: independent ? Bed-Chair: independent ? Chair-bed: independent? GAIT? Assistive Device: FWW ? Weight bearing: full Assist: CGA ? Distance:? 300 feet ? Deviation: Slow well controlled gait pattern noted ? STAIRS: Able to ambulate up / down 3 4-inch and 2 6-inch stairs, attempting use of a cane but needed at least one hand rail to feel comfortable. ? Patient's son did locate me in the hallway several minutes after leaving patient's room, post treatment, to say his mother was complaining of feeling woosy. BP was taken at 170/70 with HR of 64. Post BP reading she indicated that she no longer felt woosy. ? ASSESSMENT:? Good effort given with today's PT session despite complaints of continued stomach irritation and indicating she is not feeling very well. PLAN: Continue global strengthening per plan of care until patient is medically cleared for discharge. TREATMENT CODE/TIME: 33017 x 2, 11:00 to 11:25 (25 minutes)
[2023-03-02] MEDS: Normal Saline 1,000 ML 100 ML IV (13:19)
[2023-03-02] MEDS: Milk of Magnesia 30 ML CUP PO (13:23)
[2023-03-02 15:13] VITALS: BP 158/71; PULSE 65; RESP 17; TEMP 36.5; O2SAT 96
[2023-03-02] MEDS: Acetaminophen 325 MG TAB PO (17:57)
[2023-03-02 21:07] VITALS: BP 159/72; PULSE 72; RESP 16; TEMP 36.9; O2SAT 95
[2023-03-02] MEDS: Melatonin 3 MG TAB PO (21:10)
[2023-03-02] MEDS: Famotidine 20 MG TAB PO (21:10)
[2023-03-02] MEDS: Simvastatin 10 MG TAB 5 MG PO (21:10)
[2023-03-03 03:19] VITALS: BP 147/77; PULSE 69; RESP 16; TEMP 36; O2SAT 95
[2023-03-03] MEDS: Acetaminophen 325 MG TAB PO ×3 (03:22→20:10)
[2023-03-03 07:08] LABS: Abs Immature Grans 0.02 10^3/uL (0.0-0.06); Absolute Basophil Count 0.02 10^3/uL (0.0-0.2); Absolute Eosinophil Count 0.03 10^3/uL (0.0-0.7); Absolute Lymphocyte Count 0.91 10^3/uL (1.2-3.4); Absolute Monocyte Count 0.47 10^3/uL (0.1-0.8); Absolute Neutrophil Count 3.64 10^3/uL (1.2-6.7); Basophils % 0.4; Eosinophils % 0.6; HCT 35.9 % (36.0-46.0); HGB 12.2 g/dL (11.2-15.7); Immature Grans % 0.4; Lymphocytes % 17.9; MCH 29.3 pg (27.0-33.0); MCV 86 fL (80-95); MPV 9.7 fL (8.0-11.0); Monocytes % 9.2; Neutrophils % 71.5; Platelet Count 177 10^3/uL (130-400); RBC 4.16 10^6/uL (3.93-5.22); RDW 12.8 % (11.7-14.6); RDW-SD 40.4 fL; WBC 5.09 10^3/uL (4.4-10.8)
[2023-03-03 07:23] LABS: Anion Gap 6.2 mmol/L (3-11); BUN 13 mg/dL (7-18); CO2 29.8 mmol/L (21.0-32.0); CREATININE 0.8 mg/dL (0.55-1.02); Chloride 91 mmol/L (98-107); Estimated GFR 71.71 (mL/min/1.73m2); Glucose 118 mg/dL (74-106); Potassium 4.7 mmol/L (3.5-5.1); Sodium 127 mmol/L (136-145)
[2023-03-03 07:43] VITALS: BP 139/79; PULSE 69; RESP 18; TEMP 36; O2SAT 90
[2023-03-03] MEDS: Normal Saline Flush 10 ML SYR IVP ×2 (07:49→20:09)
[2023-03-03] MEDS: Sucralfate 1 GM TAB PO ×2 (07:50→16:40)
[2023-03-03] MEDS: Docusate Sodium 100 MG CAP PO (10:31)
[2023-03-03] MEDS: Metoprolol 25 MG TAB PO ×2 (10:32→20:10)
[2023-03-03] MEDS: Enoxaparin 40 MG/0.4 ML SYR SC (10:33)
[2023-03-03] MEDS: Mylanta Suspension 30 ML CUP PO (10:34)
[2023-03-03] MEDS: Polyethylene Glycol 3350 17 GM PACKET PO (10:34)
[2023-03-03 11:01] VITALS: BP 171/83; PULSE 75; RESP 24; TEMP 36.4; O2SAT 95
--- NOTE | 2023-03-03 11:10 | NUR.NOTE ---
Nursing Note: nurse noted patient to be calling out and restless in bed, visibly upset, not orientated to self, time or place, states shes trying to make a pie and non sensible conversation. Nurse updated charge, obtained a set of vitals, able to console patient, while monitoring patient family member arrived, per family patient called twice to tell family she didn't know where she was, patient does not recognize family member, pupils sluggish, unable to follow commands, medical charge entry specialist came to bedside for further assessment, provider notified and will come to beside, no new orders at this time.
--- NOTE | 2023-03-03 11:29 | PGE_ITS ---
Date of Service Date of service: 03/03/23 Time of Service: 11:29 Assessment and Plan Assessment and plan (1) AMS (altered mental status): Status: Acute Assessment and plan: has been hemodynamically stable, labs unremarkable with sodium improved to 127 today, will check UA head CT (2) Complicated UTI (urinary tract infection): Status: Acute Assessment and plan: hemodynamically stable. with encephalopathy started on ceftriaxone 1 gm daily day 03/23 urine culture pending. (3) Hyponatremia: Status: Acute Assessment and plan: normal cortisol and ACTH stim test, r/o glucocorticoid deficiency TSH normal and no orthostasis continue free water fluid restriction at 800 cc and follow labs closely omeprazole discontinued after pharmacy consultation. given 1 liter of NS yesterday, sodium up to 127, will given another liter today in setting of AMS with anticipated low po intake (4) SIADH (syndrome of inappropriate ADH production): Status: Acute Assessment and plan: pharmacy consultation with omeprazole discontinued as potential contributor Continue free water restriction 800 cc/24hours normal plasma cortisol level and cosyntropin/ACTH simulation testing TSH normal at 3.6, orthostatic VS negative. (5) Abdominal pain: Status: Acute Assessment and plan: CT scan negative for source, did find increased fecal load, bowel management with several BM's daily, continue to monitor (6) Urinary tract infection: Status: Resolved Assessment and plan: treated outpatient for russ sensitive e coli with cefpodoxime , course completed, no further symptoms. (7) Generalized weakness: Status: Acute Assessment and plan: Continue PT (8) DVT prophylaxis: Status: Acute Assessment and plan: Continue LMWH (9) Discharge planning issues: Status: Acute Assessment and plan: Home when medically ready with Home Health, nursing, PT, OT, RADIOLOGIC ELECTRONIC SPECIALIST has outpatient barium swallow scheduled for 03/[address] Phillip Subjective Subjective Patient reports: still having pain (abdominal ) and afebrile Interval history since last seen: confused today Exam Narrative Exam Narrative: Elderly female frail stated age no acute distress, today confused. Head is atraumatic oral mucosas dry Neck is supple there is no JVD Cardiovascular regular rate and rhythm no peripheral edema Respirations are even and unlabored breath sounds are clear bilaterally with diminished bases Abdomen is flat soft, reports it is tender with palpation, positive bowel sounds Her extremities are without edema moves all extremities Objective Last Vital Signs Temp 36.4 C L 03/03/23 11:01 Pulse 75 03/03/23 11:01 Resp 24 03/03/23 11:01 BP 171/83 H 03/03/23 11:01 Pulse Ox 95 03/03/23 11:01 Laboratory Results - last 24 hr 02/28/23 03/01/23 03/01/23 14:44 07:12 09:30 WBC RBC Hgb Hct MCV MCH MCHC RDW Plt Count MPV Immature Gran % Neutrophils % Lymphocytes % Monocytes % Eosinophils % Basophils % Nucleated RBC % Absolute Neutrophils Absolute Lymphocytes Absolute Monocytes Absolute Eosinophils Absolute Basophils Sodium Potassium Chloride Carbon Dioxide Anion Gap BUN Creatinine Est GFR (CKD-EPI 2020) Glucose Calcium Cortisol Baseline 19 Cortisol 30 Minute 34 Cortisol 60 Minute Urine Osmolality 540 03/01/23 03/03/23 10:00 06:55 WBC 5.09 RBC 4.16 Hgb 12.2 Hct 35.9 L MCV 86 MCH 29.3 MCHC 34.0 RDW 12.8 Plt Count 177 MPV 9.7 Immature Gran % 0.4 Neutrophils % 71.5 Lymphocytes % 17.9 Monocytes % 9.2 Eosinophils % 0.6 Basophils % 0.4 Nucleated RBC % 0.0 Absolute Neutrophils 3.64 Absolute Lymphocytes 0.91 L Absolute Monocytes 0.47 Absolute Eosinophils 0.03 Absolute Basophils 0.02 Sodium 127 L Potassium 4.7 Chloride 91 L Carbon Dioxide 29.8 Anion Gap 6.2 BUN 13 Creatinine 0.8 Est GFR (CKD-EPI 2020) 71.71 Glucose 118 H Calcium 9.0 Cortisol Baseline Cortisol 30 Minute Cortisol 60 Minute 37 Urine Osmolality Time Spent with Patient Time Spent with Patient: 35-49 minutes Time was spent: preparing to see the patient(eg.review tests), obtaining and/or reviewing separately otained hiistory, ordering medications,tests, procedures and indepentently interpreting results
--- NOTE | 2023-03-03 11:50 | PT.INNT ---
Date of service: 03/03/23 Time of Service: 10:47 PT Notes Visit Reasons: Hyponatremia; abdominal pain; dehydration Patient is experiencing an acute mental status change. Per BENJAMIN Jones, hold until after imaging.
[2023-03-03 12:27] LABS: Bilirubin Negative (Negative); Blood Trace-intact (Negative); Clarity Cloudy (Clear); Glucose Negative (Negative); Ketones Negative (Negative); Leukocyte Esterase Moderate (Negative); Nitrite Positive (Negative); Specific Gravity 1.015 (1.005-1.025); Urobilinogen 0.2 mg/dL (Up to 0.2)
--- NOTE | 2023-03-03 12:31 | DI.CT_ITS ---
Exam(s) CT HEAD WO EXAM: CT HEAD WO CLINICAL HISTORY: ams. TECHNIQUE: Imaging Protocol: Axial computed tomography images with coronal and sagittal reformatted images were created and reviewed COMPARISON: CT CT BRAIN NECK CTA from 09/12/2022 FINDINGS: Ventricles and Extra axial spaces: Normal in size and morphology for the patient's age. Hemorrhage: None. Cerebral parenchyma: There are areas of decreased attenuation in the white matter consistent with sma ll vessel ischemic disease. No mass effect is identified. Midline shift: None. Brainstem/Cerebellum: Normal. Calvarium: Normal. Visualized Paranasal sinuses/Mastoids: Clear. Soft Tissues: Unremarkable. IMPRESSION: No acute intracranial process. RADIATION DOSE DELIVERED: Total DLP DATA REPOSITORY: All CT scans at this facility are submitted to the National Radiology Data Registry (NRDR) Dose Index Registry (DIR) with the [employer] (ACR). RADIATION OPTIMIZATION: All CT scans at this facility use at least one of these dose optimization te chniques: automated exposure control; mA and/or kV adjustment per patient size (includes targeted exa ms where dose is matched to clinical indication); or iterative reconstruction.
[2023-03-03 12:34] LABS: Bacteria Many HPF (Negative); Crystals Negative HPF (Negative); Epithelial Cells Few HPF (Negative)
[2023-03-03 12:35] LABS: C & S Indicated? Yes; Casts Negative LPF (Negative); Mucus Trace (Negative)
[2023-03-03] MEDS: Normal Saline 1,000 ML 100 ML IV (14:38)
[2023-03-03] MEDS: cefTRIAXone 1 GM/50 ML BAG IVPB (14:38)
--- NOTE | 2023-03-03 15:03 | CMPROGNOTE_ITS ---
Date of service: 03/03/23 Time of Service: 15:03 Care Management Progress Note Progress Note Text Progress Note Text: Per COORDINATOR VOLUNTEER SERVICES, Cathy is encephalopathic related to a UTI, provider is hopeful that she will clear mentally with antibiotic treatment, there is some question if Cathy could benefit from SNF upon discharge. Previous plan included home with [facility] RN/PT/OT/STAPLER MACHINE, once Cathy is able to have a conversation about SNF, CM will discuss disposition planning.
[2023-03-03 15:17] VITALS: BP 186/82; PULSE 67; RESP 18; TEMP 36.5; O2SAT 95
[2023-03-03 20:07] VITALS: BP 146/67; PULSE 71; RESP 20; TEMP 36.8; O2SAT 95
[2023-03-03] MEDS: Melatonin 3 MG TAB PO (20:09)
[2023-03-03] MEDS: Famotidine 20 MG TAB PO (20:10)
[2023-03-03] MEDS: Ondansetron 4 MG/2 ML VIAL IVP (20:13)
[2023-03-04] MEDS: Acetaminophen 325 MG TAB PO (00:31)
[2023-03-04] MEDS: Ondansetron 4 MG/2 ML VIAL IVP (00:32)
[2023-03-04] MEDS: Normal Saline Flush 10 ML SYR IVP ×4 (00:32→21:05)
[2023-03-04 03:08] VITALS: BP 148/64; PULSE 72; RESP 16; TEMP 37.3; O2SAT 96
[2023-03-04 07:49] VITALS: BP 157/76; PULSE 72; RESP 20; TEMP 37; O2SAT 95
[2023-03-04] MEDS: Sucralfate 1 GM TAB PO ×4 (07:51→21:05)
[2023-03-04] MEDS: Metoprolol 25 MG TAB PO ×2 (07:51→21:05)
[2023-03-04] MEDS: Docusate Sodium 100 MG CAP PO (07:51)
[2023-03-04] MEDS: Polyethylene Glycol 3350 17 GM PACKET PO (07:51)
[2023-03-04] MEDS: Enoxaparin 40 MG/0.4 ML SYR SC (07:51)
[2023-03-04] MEDS: Ferrous Sulfate 325 MG TAB PO (09:30)
--- NOTE | 2023-03-04 10:20 | PT.INTREAT ---
PT Notes Visit Reasons: Hyponatremia; abdominal pain; dehydration Inpatient Physical Therapy Treatment Note [facility] Date: 03/04/2023 PRECAUTIONS: Fall. Standard. Activities as tolerated. SUBJECTIVE: Pleasant and cooperative. Remembered that yesterday she was not able to say her birthday and her age. OBJECTIVE: ? Mental Status: Alert and oriented x 4? Pain: Denies ? BED MOBILITY/TRANSFERS: No assistive device needed. No cueing needed. ? Sit-stand: independent ? Stand-sit: independent ? Bed-Chair: independent ? Chair-bed: independent? GAIT:? Assistive Device: No assistive device needed. Cueing needed only for directions. ? Weight bearing: FWB Assist: Supervision ? Distance:? 400 feet ? Deviation: Age-related decrease in karo, otherwise unremarkable. Patient denied pain, lightheadedness and chest pain throughout session. STAIRS: Able to negotiate up/down six 4-inch and two 6-inch stairs while holding onto one rail, supervision assist only.? ASSESSMENT:? Significant improvement with mobility performance without need for assistive device. Per ANYA Frye, patient may go home later today with [facility]. DISCHARGE RECOMMENDATIONS: [] Home with no services [] [X] Home with services physical. Patient will benefit from home health PT services in order to progress mobility level using least restrictive assistive ambulatory device, assess home safety, identify additional equipment needs, and establish a functional maintenance program that will increase ability of patient to remain at home. [] Home with outpatient PT [] [] SNF for continued rehabilitation [] [] Automotive General Manager Care [] [] SNF versus LTC based on ability to participate and progress [] TREATMENT CODE/TIME: 96226 x 28' for 2 units beginning at 10:20 AM.
--- NOTE | 2023-03-04 10:45 | CMPROGNOTE_ITS ---
Date of service: 03/04/23 Time of Service: 10:45 Care Management Progress Note Progress Note Text Progress Note Text: S/O: Cathy was sitting up in her chair when CM met with her. She stated that she feels much better than yesterday. Her son, Grant, was in the room and added that she was unable to curing pickling packer her fork yesterday. She worked well with PT, per report, who continues to recommend that she return home with HH services, when ready. Per TUBE SIZER AND CUTTER OPERATOR, she will have a swallow study tomorrow, and she may be ready for discharge tomorrow, after the procedure. CM will continue to follow. A: Cathy is a 88 year old female admitted to [facility] on 02/25/23 for hyponatremia, abdominal pain, dehydration. P: Anticipate Cathy will return home once medically cleared with new orders for HH RN, PT, OT, [facility] vs SNF for short term rehab. Her son will drive her home via private vehicle. She will follow up with her PCP and discharge plan of care. CM will continue to follow.
[2023-03-04 11:19] LABS: Abs Immature Grans 0.02 10^3/uL (0.0-0.06); Absolute Basophil Count 0.03 10^3/uL (0.0-0.2); Absolute Eosinophil Count 0.05 10^3/uL (0.0-0.7); Absolute Lymphocyte Count 1.01 10^3/uL (1.2-3.4); Absolute Monocyte Count 0.77 10^3/uL (0.1-0.8); Absolute Neutrophil Count 5.58 10^3/uL (1.2-6.7); Basophils % 0.4; Eosinophils % 0.7; HCT 36.7 % (36.0-46.0); HGB 12.4 g/dL (11.2-15.7); Immature Grans % 0.3; Lymphocytes % 13.5; MCH 29.4 pg (27.0-33.0); MCHC 33.8 % (32.0-36.0); MCV 87 fL (80-95); MPV 9.9 fL (8.0-11.0); Monocytes % 10.3; Neutrophils % 74.8; Platelet Count 198 10^3/uL (130-400); RBC 4.22 10^6/uL (3.93-5.22); RDW 12.9 % (11.7-14.6); RDW-SD 40.8 fL; WBC 7.46 10^3/uL (4.4-10.8)
[2023-03-04 11:37] LABS: Anion Gap 4.5 mmol/L (3-11); BUN 16 mg/dL (7-18); CO2 29.5 mmol/L (21.0-32.0); CREATININE 0.8 mg/dL (0.55-1.02); Chloride 91 mmol/L (98-107); Estimated GFR 71.71 (mL/min/1.73m2); Glucose 118 mg/dL (74-106); Potassium 4.7 mmol/L (3.5-5.1); Sodium 125 mmol/L (136-145)
--- NOTE | 2023-03-04 12:01 | W.PM.DS.N ---
Date of service: 03/05/23 Time of Service: 12:02 DS: Diagnosis Discharge Diagnosis (1) Hyponatremia: Status: Acute (2) SIADH (syndrome of inappropriate ADH production): Status: Acute (3) Abdominal pain: Status: Acute (4) Urinary tract infection: Status: Resolved (5) Generalized weakness: Status: Acute Discharge Plan Disposition Patient Disposition: Home W/Home Health Services Condition: Improving Discharge Details Reason For Visit: Hyponatremia; abdominal pain; dehydration Admit Date/Time: 02/25/23 16:17 Admit Provider: Rolan Jiménez Attending Provider: Rolan Jiménez Primary Care Provider: Jason Huff Hospital Course Hospital Course: This is an 87-year-old female with past medical history including perforated diverticulitis, GERD, Sherwood's esophagus who presented to the [facility] ED for evaluation of abdominal pain. She reported this pain has been ongoing for some time. She was here a few days ago and evaluated at that time. She went to PCP today for follow up and was sent back to the ED. She localized the pain to the upper part of her abdomen. She reported eating and drinking normally. She denied any change in her bowel or bladder. Patient was recently in the emergency department and at that time was evaluated with lab work and a CT scan. Workup did not demonstrate significant abnormalities, some mild hyponatremia. The CT scan was consistent with constipation. On this visit her sodium was downtrending at 122 from 125. She was admitted to the hospitalist services for further evaluation and monitoring. She received IV normal saline and was placed on a fluid restriction. Hypothyroidism adrenal insufficiency was ruled out with lab testing. Pharmacy review of her medications shows that omeprazole could be contributing so this was discontinued. Her sodium has slowly started trending upwards and is 127 at discharge. She is asymptomatic with lower sodium she was noted to have some confusion. Hospital course was also complicated with a urinary tract infection noted due to increased confusion. She did grow pansensitive E. coli and was treated inpatient with ceftriaxone but will be discharged home with 5 additional days of cefpodoxime. In regards to her abdominal pain which has been ongoing for at least a month she has been able to eat and drink and with bowel regimen has had several bowel movements. She was scheduled outpatient for a barium swallow which we were able to complete while she was inpatient. This will be sent to her primary care provider for further outpatient workup and recommendations. Results were not available at time of discharge and should be reviewed by outpatient team. She was advised to schedule follow-up or return sooner for new or worsening symptoms. On the date of discharge she was awake alert and oriented tolerating good oral intake and ambulating independently voicing no complaints. She will be discharged to home with home health services including nursing for routine nursing evaluation and medication oversight in the setting of medication changes. Physical and Occupational Therapy. discharge to home with new home health services by private vehicle. discussed with DR Phillip Home Meds and New Rx's Prescriptions: New cefpodoxime 200 mg tablet 200 mg PO BID Qty: 10 0RF Rx Instructions: must administer with a meal/food Continued ICaps AREDS2 (copper citrate) 250 mg-200 unit -12.5 mg-1 mg tablet 1 tab PO BID famotidine 20 mg tablet 20 mg PO QHS Qty: 90 3RF albuterol sulfate 90 mcg/actuation HFA aerosol inhaler 1 - 2 inh IH Q6H PRN (Reason: shortness of breath or wheezing) Qty: 8.5 6RF vitamins A,C,H-iaqb-igolvw 7,160-113-100 kvpz-rg-iwvx tablet,delayed release (DR/EC) PO Hold Instructions: Pt Stopped/Never Started estradiol 0.01 % (0.1 mg/gram) cream 1 g vaginal DAILY Qty: 42.5 2RF Rx Instructions: local application daily for one week and then 3 times per week metoprolol tartrate 25 mg tablet 25 mg PO BID Qty: 180 3RF simvastatin 5 mg tablet 5 mg PO DAILY Patient Comments: TAKE ONE TABLET BY MOUTH AT BEDTIME ferrous sulfate 325 mg (65 mg iron) tablet,delayed release (DR/EC) 325 mg PO .QOD Patient Comments: TAKE ONE TABLET BY MOUTH EVERY OTHER DAY Discontinued omeprazole 40 mg capsule,delayed release(DR/EC) 40 mg PO DAILY Qty: 90 2RF Discharge Instructions Instructions: Urinary Tract Infection in Women (DC), Hyponatremia (DC) Stand Alone Forms: Nursing Discharge Form Referrals: Jason Huff NP [Primary Care Provider] - 03/20/23 11:40 am () Activity:: Activity as Tolerated Equipment/Supplies:: No Equipment Needed Diet:: As Tolerated Discharge Orders Discharge Orders: Discharge Order (Routine); Ordered 03/05/23 Ordered By: Melva Hastings Other Ambulatory Orders: Basic Metabolic Panel (Routine) Timeframe: 20230303 Location: Determined by Patient Ordered By: Ladan Brock Discharge Data Discharge Date/Time-TO BE ENTERED AT DEPARTURE: 03/05/23 15:24 DS: Summary Time Spent with Patient providing and/or coordinating discharge services: Greater than 30 minutes Status at Discharge Functional status at discharge: independent ambulation Overall status at discharge: patient is progressing back to baseline Mental Status: mental status grossly normal Speech and Movement: speech and movement normal Mood: congruent mood Affect: normal affect Exam Narrative Exam Narrative: Elderly female frail stated age no acute distress, awake alert and oriented. Head is atraumatic oral mucosa moist Neck is supple there is no JVD Cardiovascular regular rate and rhythm no peripheral edema Respirations are even and unlabored breath sounds are clear bilaterally with diminished bases Abdomen is flat soft, reports it is tender with palpation, positive bowel sounds Her extremities are without edema moves all extremities skin no rashes or lesions Psych Mental Status: mental status grossly normal Speech and Movement: speech and movement normal Mood: congruent mood Affect: normal affect DS: Data Vitals/I&O Vitals and I&O: Vital Signs Temperature 37.0 C 03/04/23 07:49 Temperature Source Tympanic 03/04/23 07:49 Pulse 72 03/04/23 07:49 Pulse Rhythm Regular 03/04/23 08:00 Respiratory Rate 20 03/04/23 07:49 Respiratory Effort Normal, Non-Labored 03/04/23 08:00 Respiratory Depth Normal 03/04/23 08:00 Respiratory Pattern Normal 03/04/23 08:00 Blood Pressure 157/76 H 03/04/23 07:49 Pulse Oximetry 95 03/04/23 07:49 Oxygen Delivery Method Room Air 03/04/23 07:49 Oxygen Flow Rate 0 03/04/23 07:49 Pain Level 0 03/04/23 07:49 Comment BP osei valencia radio/RN informed of BP 03/03/23 15:17 Intake & Output 03/03/23 03/04/23 03/04/23 23:59 11:59 23:59 Intake Total 50 / 150 1560 / 1560 Output Total 950 / 1450 650 / 650 Balance -900 / -1300 910 / 910 Intake: IV 50 / 50 1010 / 1010 Oral 550 / 550 Output: Urine 950 / 1450 650 / 650 Other: Urine Color Light Sushila Yellow Urine Appearance Clear Clear Urine Odor Normal Normal Stool Size Small Small Stool Characteristics Soft Soft Brown Beckford Beckford Green Green Voiding Methods Bedside Commode Toilet Data Completed and Pending Labs on day of discharge: Labs from last 24 hours 03/04/23 03/03/23 11:10 12:03 WBC 7.46 RBC 4.22 Hgb 12.4 Hct 36.7 MCV 87 MCH 29.4 MCHC 33.8 RDW 12.9 Plt Count 198 MPV 9.9 Immature Gran % 0.3 Neutrophils % 74.8 Lymphocytes % 13.5 Monocytes % 10.3 Eosinophils % 0.7 Basophils % 0.4 Nucleated RBC % 0.0 Absolute Neutrophils 5.58 Absolute Lymphocytes 1.01 L Absolute Monocytes 0.77 Absolute Eosinophils 0.05 Absolute Basophils 0.03 Sodium 125 L Potassium 4.7 Chloride 91 L Carbon Dioxide 29.5 Anion Gap 4.5 BUN 16 Creatinine 0.8 Est GFR (CKD-EPI 2020) 71.71 Glucose 118 H Calcium 9.0 Urine Color Yellow Urine Clarity Cloudy Urine pH 8.0 Ur Specific [place] 1.015 Urine Protein Negative Urine Ketones Negative Urine Blood Trace-intact H Urine Nitrite Positive H Urine Bilirubin Negative Urine Urobilinogen 0.2 Ur Leukocyte Esterase Moderate H Urine RBC 3-5 H Urine WBC 10-20 H Ur Epithelial Cells Few Urine Crystals Negative Urine Bacteria Many Urine Casts Negative Urine Mucus Trace Ur Culture Indicated? Yes Urine Glucose Negative Preliminary micro results at discharge 03/03/23 12:03 Urine Culture - Preliminary Urine - Reflex from Ua Escherichia coli [facility] All Active Problems (Updated 03/04/23 @ 14:16 by Melva Hastings NP) Complicated UTI (urinary tract infection) (Acute) Hyponatremia (Acute) SIADH (syndrome of inappropriate ADH production) (Acute) Discharge planning issues (Acute) DVT prophylaxis (Acute) Generalized weakness (Acute) Dehydration (Acute) Pancreatitis (Chronic) Hyponatremia (Acute) Constipation (Acute) Gastritis (Acute) Abdominal pain (Acute) Dysuria (Acute) Sore in nose (Acute) LUQ abdominal pain (Acute) Serrated adenoma of colon (Acute ~07/18/22) Neck pain on right side (Acute) Perforated diverticulum (Chronic) Dermatitis (Acute) Vaginitis, atrophic (Acute) Hyponatremia (Chronic) Multiple occasions last of which was 01/2021, 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 intestinal meta. or dysplasia Family history of GI malignancy Essential hypertension (01/14/13) Depressive disorder Atrophic vaginitis (08/19/11) Pt. states she is unsure [place]; rib fracture; lacerated liver; fx-pelvis; perf. intestine Family history of GI malignancy Surgical History KNEE SURGERY (~05/2012) Abdominal hysterectomy EGD - MAC (04/22/17) Colonoscopy - MAC (04/22/17) Colonoscopy - MAC (~02/2012) Cholecystectomy Bladder Surgery Bilateral salpingectomy with oophorectomy Arthroplasty of knee (05/27/12) LEFT - Pt denies knee replacement Family History Mother , AGE 84 Heart disease Father , AGE 87 Stroke Heart disease Cancer Sister Stroke Brother Alcohol abuse Cancer Brother Cancer of kidney Son Hyperlipidemia Pulmonary disease Daughter Thyroid disease Daughter Cancer s/p hysterectomy Daughter No problems noted. Daughter No problems noted. Brother No problems noted. Maternal Grandfather No problems noted. Paternal Grandfather No problems noted. Maternal Grandmother No problems noted. Paternal Grandfather No problems noted. Social History Smoking/Tobacco Use Status: Former Tobacco Use tobacco type: cigarettes Quit Date: 03/17/97 Second Hand Exposure: Yes Smoking risk assessment performed?: Yes Alcohol Intake: never Drug use: Never Substance use type: does not use Housing: house Communication Needs: Hard of Hearing Do you need help understanding health information?: Often Pets and animals: No Sexually active: No Do you think of yourself as: straight/heterosexual Current gender identity: female What is your relationship status?: How often do you talk on the phone with friends or family?: decline to answer How often do you attend zoroastrian or taoism services?: decline to answer Do you belong to any clubs or organized social groups?: decline to answer Panel score (0-1 are the most socially isolated patients): 0 What type of physical activity do you participate in: walking Carri/Jain: No preference Special carri needs: No Drive intox 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 motor pool driver: No Do you feel safe at home: Yes Do you feel safe in your relationship?: Yes Time Spent with Patient Time Spent with Patient: 45-69 minutes Time was spent: preparing to see the patient(eg.review tests), obtaining and/or reviewing separately otained hiistory, ordering medications,tests, procedures, indepentently interpreting results, counseling the patient and care coordination
--- NOTE | 2023-03-04 12:05 | PDOC.HHF2F ---
Home Health Referral Home Health Orders Clinical synopsis of why skilled professionals are needed: prolonged hospitalization, frail, mild memory impairment, medication changes. multiple comorbidities at risk for discharge failure Medical diagnosis necessitation home health referral: UTI, hyponatremia, encephalopothy, deconditioning, Registered Nurse: Check all that apply Instruct on new or changed medication(s)/assess compliance: Ordered Assess for exacerbation of medical condition, instruct patient/caregivers on signs and symptoms to report for early detection: Ordered Physical Therapist: Check all that apply Increase strength & endurance for safe mobility at home: Ordered To design/establish home maintenance program: Ordered Fall reduction therapy program for patient with history of frequent falls: Ordered Home safety evaluation and teaching/gait training including stair management (if applicable): Ordered Occupational Therapist: Evaluate and treat for patient unable to perform ADL/IADL/self-care: Ordered Upper extremity strengthening, range and motion: Ordered Poultryman: Assist with community resources: Ordered Assist with correction care planning: Ordered Home Bound Status Describe why leaving home would require a considerable and taxing effort: Requires frequent rest periods and Confusion Encounter Date and Reason: I certify that a FTF encounter for this patient was performed on March 04, 2023 and that such encounter was related to the primary reason the patient requires home health services. The encounter was conducted in the following manner: By me as the certifying physician, CLAY MINE CUTTING MACHINE OPERATOR, PA or By an inpatient physician, CLAY MINE CUTTING MACHINE OPERATOR or PA during an inpatient stay who communicated findings to me, Certification And Authentication I certify that I composed the above information based on my clinical judgment relating to this patient's medical condition and, if applicable, clinical findings communicated to me by the NPP or inpatient physician who performed the FTF encounter. Name of Provider that will be monitoring home health services: Jason Busby
[2023-03-04] MEDS: cefTRIAXone 1 GM/50 ML BAG IVPB (14:08)
--- NOTE | 2023-03-04 14:15 | W.PM.PROGNOT ---
Date of Service Date of service: 03/04/23 Time of Service: 14:15 Assessment and Plan Assessment and plan (1) AMS (altered mental status): Status: Resolved Assessment and plan: has been hemodynamically stable, UA was positive growing E. coli. She is being treated with ceftriaxone and is back to baseline head CT negative (2) Complicated UTI (urinary tract infection): Status: Acute Assessment and plan: hemodynamically stable. continue ceftriaxone 1 gm daily day 3/7 urine culture pending. (3) Hyponatremia: Status: Acute Assessment and plan: normal cortisol and ACTH stim test, r/o glucocorticoid deficiency TSH normal and no orthostasis continue free water fluid restriction at 800 cc and follow labs closely omeprazole discontinued after pharmacy consultation. (4) SIADH (syndrome of inappropriate ADH production): Status: Acute Assessment and plan: pharmacy consultation with omeprazole discontinued as potential contributor Continue free water restriction 800 cc/24hours normal plasma cortisol level and cosyntropin/ACTH simulation testing TSH normal at 3.6, orthostatic VS negative. (5) Abdominal pain: Status: Acute Assessment and plan: CT scan negative for source, did find increased fecal load, bowel management with several BM's daily, continue to monitor plan for barium swallow tomorrow morning. (6) Urinary tract infection: Status: Resolved Assessment and plan: treated outpatient for russ sensitive e coli with cefpodoxime , course completed, no further symptoms. (7) Generalized weakness: Status: Acute Assessment and plan: Continue PT (8) DVT prophylaxis: Status: Acute Assessment and plan: Continue LMWH (9) Discharge planning issues: Status: Acute Assessment and plan: Home when medically ready with Home Health, nursing, PT, OT, SR. LOGISTICS ANALYST discussed with Dr Phillip Subjective Subjective Patient reports: no new complaints, feels better, tolerating liquids well, tolerating a regular diet and afebrile Exam Narrative Exam Narrative: Elderly female frail stated age no acute distress, today confused. Head is atraumatic oral mucosas dry Neck is supple there is no JVD Cardiovascular regular rate and rhythm no peripheral edema Respirations are even and unlabored breath sounds are clear bilaterally with diminished bases Abdomen is flat soft, reports it is tender with palpation, positive bowel sounds Her extremities are without edema moves all extremities Objective Last Vital Signs Temp 37.0 C 03/04/23 07:49 Pulse 72 03/04/23 07:49 Resp 20 03/04/23 07:49 BP 157/76 H 03/04/23 07:49 Pulse Ox 95 03/04/23 07:49 Laboratory Results - last 24 hr 03/04/23 11:10 WBC 7.46 RBC 4.22 Hgb 12.4 Hct 36.7 MCV 87 MCH 29.4 MCHC 33.8 RDW 12.9 Plt Count 198 MPV 9.9 Immature Gran % 0.3 Neutrophils % 74.8 Lymphocytes % 13.5 Monocytes % 10.3 Eosinophils % 0.7 Basophils % 0.4 Nucleated RBC % 0.0 Absolute Neutrophils 5.58 Absolute Lymphocytes 1.01 L Absolute Monocytes 0.77 Absolute Eosinophils 0.05 Absolute Basophils 0.03 Sodium 125 L Potassium 4.7 Chloride 91 L Carbon Dioxide 29.5 Anion Gap 4.5 BUN 16 Creatinine 0.8 Est GFR (CKD-EPI 2020) 71.71 Glucose 118 H Calcium 9.0 Time Spent with Patient Time Spent with Patient: 35-49 minutes Time was spent: preparing to see the patient(eg.review tests), obtaining and/or reviewing separately otained hiistory, ordering medications,tests, procedures, referring, communicating with other health career professional, indepentently interpreting results and counseling the patient
[2023-03-04 15:09] VITALS: BP 135/96; PULSE 70; RESP 17; TEMP 37.1; O2SAT 94
[2023-03-04 15:14] VITALS: BP 142/82
[2023-03-04 21:00] VITALS: BP 131/62; PULSE 77; RESP 16; TEMP 36.8; O2SAT 95
[2023-03-04] MEDS: Famotidine 20 MG TAB PO (21:05)
[2023-03-04] MEDS: Melatonin 3 MG TAB PO (21:05)
[2023-03-04] MEDS: Simvastatin 10 MG TAB 5 MG PO (21:05)
[2023-03-05 02:57] VITALS: BP 160/69; PULSE 67; RESP 18; TEMP 36.4; O2SAT 94
[2023-03-05 07:00] LABS: Abs Immature Grans 0.03 10^3/uL (0.0-0.06); Absolute Basophil Count 0.03 10^3/uL (0.0-0.2); Absolute Eosinophil Count 0.07 10^3/uL (0.0-0.7); Absolute Lymphocyte Count 0.94 10^3/uL (1.2-3.4); Absolute Monocyte Count 0.65 10^3/uL (0.1-0.8); Absolute Neutrophil Count 4.16 10^3/uL (1.2-6.7); Basophils % 0.5; Eosinophils % 1.2; HGB 12.2 g/dL (11.2-15.7); Immature Grans % 0.5; MCH 29.4 pg (27.0-33.0); MCHC 33.9 % (32.0-36.0); MCV 87 fL (80-95); Monocytes % 11.1; Neutrophils % 70.7; Platelet Count 171 10^3/uL (130-400); RBC 4.15 10^6/uL (3.93-5.22); RDW 12.7 % (11.7-14.6); RDW-SD 40.5 fL; WBC 5.88 10^3/uL (4.4-10.8)
[2023-03-05 07:17] LABS: Anion Gap 4.6 mmol/L (3-11); BUN 20 mg/dL (7-18); CO2 31.4 mmol/L (21.0-32.0); CREATININE 0.8 mg/dL (0.55-1.02); Calcium 8.9 mg/dL (8.5-10.1); Chloride 90 mmol/L (98-107); Estimated GFR 71.71 (mL/min/1.73m2); Glucose 110 mg/dL (74-106); Potassium 4.9 mmol/L (3.5-5.1); Sodium 126 mmol/L (136-145)
[2023-03-05 07:26] VITALS: BP 147/63; PULSE 67; RESP 18; TEMP 36.7; O2SAT 94
[2023-03-05 08:30] VITALS: O2SAT 94
[2023-03-05] MEDS: Metoprolol 25 MG TAB PO (08:30)
[2023-03-05] MEDS: Normal Saline Flush 10 ML SYR IVP (08:30)
--- NOTE | 2023-03-05 11:50 | CHAPLAIN ---
Cathy was out of the room when I stopped in. I visited with her son. He responded to some questions, but did not seem to want to engage in a conversation. I explained my role and offered support.
--- NOTE | 2023-03-05 13:30 | PDOC.CMDIS ---
Date of service: 03/05/23 Time of Service: 13:30 LACE Index Scoring Tool Questions: Length of Stay (in days): 7 - 13 Was the patient admitted via the E.D.?: Yes E.D. Visits: 4 Answers: Total Score: 12 Risk of Readmission: High Risk Care Management Discharge Plan Reason for Hospitalization: Hyponatremia, abdominal pain, dehydration Discharge Plan: Cathy will return home today with new orders for HH RN, PT, OT, DESULFURIZER HAND. Her son Grant will drive her home via private vehicle. She will follow up with her PC and discharge plan of care. Patient/Family Education Needs: Review discharge instructions and limitations, discussion of self care needs including ask me three. Services Needed at Discharge: Home Health Care Services (HH RN, PT, OT, DESULFURIZER HAND)
--- NOTE | 2023-03-05 13:50 | DI.RAD_ITS ---
Exam(s) RF UGI SM BOWEL SERIES EXAM: RF UGI SM BOWEL SERIES CLINICAL HISTORY: abd pain TECHNIQUE: 2D and real-time digital imaging was performed. CONTRAST MATERIAL: Oral barium Oral water soluble contrast was administered. COMPARISON: Recent CT scan reviewed. FINDINGS: UPPER GI SERIES: Study somewhat limited in that the patient was not able to swallow enough air producing fizzies for a dequate distention of the stomach. Esophagus: There was no aspiration demonstrated. No obvious hypertense upper esophageal sphincter. No Zenker's diverticulum. No fixed lesions evident in the esophagus. No Schatzki ring. No hiatal h ernia. No obvious reflux. Few temporary tertiary waves were demonstrated. Stomach: No obvious focal abnormality. No ulcer craters nor constricting lesions. Duodenum: Normal diameter. No evidence of ulcer crater. No diverticuli evident. Adjacent surgical clips from prior cholecystectomy noted. SMALL-BOWEL FOLLOW-THROUGH STUDY: Normal transit time of ingested contrast to the wall of the colon was demonstrated. No evidence of m alrotation. No bowel obstruction. No obvious abnormal fold thickening. The terminal ileum was difficult to isolate because of numerous opacified bowel loops in this region. But no obvious abnormality was evident in this region. IMPRESSION: Allowing for the limitations of this exam, there are no obvious significant findings evident in the e sophagus, stomach, duodenum, and remainder of the small bowel. Normal transit time to the colon was demonstrated RADIATION DOSE DELIVERED: samreen Woodward= 25.9 mGy
[2023-03-05] MEDS: Barium Sulfate 60% W/V 355 ML BTL PO ×2 (14:01→14:02)
== END 2023-03-05 15:24 | disposition home health service (06) | DRG 644 ==
LOC: ER 16:29 → MS 02-26 07:14
PROVIDERS: Nurse Practitioner Acute Care; Nurse Practitioner Family; Admitting Provider Internal Medicine; Emergency Provider Emergency Medicine; PCP Nurse Practitioner Family; Visit Provider Internal Medicine
DX: E22.2 Syndrome of inappropriate secretion of antidiuretic hormone; K86.1 Other chronic pancreatitis; N39.0 Urinary tract infection, site not specified; K59.00 Constipation, unspecified; R53.1 Weakness; R41.82 Altered mental status, unspecified; B96.20 Unspecified Escherichia coli [E. coli] as the cause of diseases classified elsewhere; E86.0 Dehydration; K22.70 Barrett's esophagus without dysplasia; R91.8 Other nonspecific abnormal finding of lung field; K21.00 Gastro-esophageal reflux disease with esophagitis, without bleeding; K29.60 Other gastritis without bleeding; Z66 Do not resuscitate; R10.10 Upper abdominal pain, unspecified; N95.2 Postmenopausal atrophic vaginitis; R30.0 Dysuria; M54.2 Cervicalgia; D64.9 Anemia, unspecified; R51.9 Headache, unspecified; E83.42 Hypomagnesemia; H35.30 Unspecified macular degeneration; N39.46 Mixed incontinence; E78.5 Hyperlipidemia, unspecified; Z87.891 Personal history of nicotine dependence; Z80.0 Family history of malignant neoplasm of digestive organs
CPT/HCPCS: 00123; 36415; 74248; 80048; 80053; 80400; 83690; 83935; 85027; 87077; 87206; 96361; 96365; 97116; 97162; 97530; 99285; J1650; 70450; 74246; 81003; 81015; 82565; 83735; 84295; 84300; 84443; 85025; 87086; 87186; 99222; 99233; 99239; G0378; J0131; J0696; J0834; J2405; J3490

== ENCOUNTER 2023-03-09 13:59 | Inpatient (IN) | payer MEDICARE, SELFPAY ==
[2023-03-09] VITALS (54 sets, daily range): BP systolic 115–209; BP diastolic 53–157; PULSE 63–95; RESP 13–27; TEMP 37.1–37.4; O2SAT 95–98
--- NOTE | 2023-03-09 14:00 | RT.EKG_ITS ---
APPROVED REPORT Exam: Resting ECG Reason for Exam: dizziness, confusion Patient Location: E HR:70 bpm ECG Measurements Heart Rate 70 AXIS ID 191 P 59 QRSd 77 QRS 52 QT 370 T 42 QTc 401 Conclusion Sinus rhythm...normal P axis, V-rate 60- 99 Left atrial enlargement...P, P'>60mS, <-0.15mV V1 Probable left ventricular hypertrophy...multiple LVH criteria Narrow complex normal sinus rhythm at a rate of 70. Normal axis. Intervals within normal limits. P rominent T waves in V4. Mild upsloping ST segment elevation in lead II. Compared to prior dated las t year mild ST segment elevation in lead II is new. Hide of T wave in V4 slightly more pronounced. Resolved T wave inversion in V2. Not consistent with occlusion TX. Poor R wave progression similar.
--- NOTE | 2023-03-09 14:02 | W.ED.GENAD ---
Discharge Plan Disposition Patient Disposition: Admit to [facility] Discharge Details Clinical Impression: Acute hyponatremia Admit Date/Time: 03/09/23 16:40 Admit Provider: Radha Deras Attending Provider: Radha Deras Primary Care Provider: Jason Huff ED Provider: Catracho Daigle General Date/Time Provider Initiated Documentation: 03/09/23 14:02. HPI Narrative: MDM This is a chronically ill normothermic and not tachycardic confused 88-year-old female with fall concerning for intercranial hemorrhage. I considered CVA however given the onset of the patient's symptoms yesterday evening I do not feel that she is a tPA candidate nor will she require an MRI. Based on fast ED score I did not obtain a CT angiogram of the patient's head nor neck as my suspicion for large vessel occlusion was low. No nuchal rigidity or fever to suggest meningitis so we will defer LP. Bacteremia is certainly a possibility given pansensitive E. coli from hospitalization last week. Will provide empiric treatment with ceftriaxone order repeat urinalysis and send separate urine culture. Will assess electrolytes to ensure patient has not developed recurrent hyponatremia. Patient is not hypoxic however will obtain a chest x-ray. No reported tonic-clonic activity to suggest benefit from EEG as my suspicion for seizure is low. No reported chest pain however given weakness will obtain a ECG and troponin. Anticipate that patient will require hospitalization. 3:15 PM Reassuring normal lactate. CBC lacks anemia thrombocytopenia and leukocytosis. Urinalysis nitrite negative. Basic metabolic panel showing recurrent hyponatremia with a serum sodium of 123 worse compared to prior. Patient is euvolemic. No TAVO. Normal reassuring magnesium. Given moderately severe symptoms with confusion will treat with hypertonic saline using 150 cc bolus of 3% hypertonic saline. Reassuring normal negative troponin. 4:33 PM [address] spoke with Dr. Deras from the hospitalist team who agreed graciously to accept the patient for hospitalization. CT head read as no acute intracranial abnormalities. 5:38 PM Negative COVID influenza RSV. Very mild improvement in sodium to a serum sodium of 124. I updated family and patient at bedside concerning plan for hospitalization. Chronic conditions affecting the care of the patient: Recurrent UTIs and hyponatremia History obtained from an outside historian: Patient's daughter External record review: [facility] [place] [Diagnostic interpretations performed by me: Per my independent interpretation chest x-ray shows: No acute cardiopulmonary process Per my independent interpretation EKG shows: Narrow complex normal sinus rhythm at a rate of 70. Normal axis. Intervals within normal limits. Prominent T waves in V4. Mild upsloping ST segment elevation in lead II. Compared to prior dated last year mild ST segment elevation in lead II is new. Hide of T wave in V4 slightly more pronounced. Resolved T wave inversion in V2. Not consistent with occlusion FL. Poor R wave progression similar. ]Medications: Ceftriaxone Social determinants of health affecting disposition: N/A Management discussed with: Dr. Deras from the hospitalist team Treatment/interventions considered: N/A Response to therapies provided: N/A HPI This is an 88-year-old female with a history of prior urinary tract infections and hyponatremia arrived to the emergency department via private vehicle with her daughter in setting up increased confusion weakness and a fall last night. She was discharged 5 days ago following a 3 night hospitalization in the setting of hyponatremia and urinary tract infection. She was discharged on cefpodoxime. She was more confused last night that took a fall while transferring to a couch. Her daughter says that she has been more unsteady on her feet. No nausea no vomiting. No fevers. No chest pain. She has been adherent with her antibiotics. She has been eating and drinking less. Patient denies any complaints. Exam General: Chronically ill-appearing in no acute distress speaking in complete sentences. Head: Normocephalic, atraumatic. Eye:[Pupils equal, round reactive to light.] Extraocular eye movements intact. No conjunctival injection. No scleral icterus. Ear, nose, mouth, throat: Grossly normal inspection. Normal voice, handling secretions normally. Neck: Trachea midline. Back: No sacral decubitus ulcer Cardiovascular: Well-perfused distal extremities. Regular rate and rhythm Respiratory: Nonlabored respiration. Clear lungs bilaterally Gastrointestinal: Nondistended abdomen. Soft nontender Musculoskeletal: No lower extremity pitting edema. Moving all 4 extremities spontaneously. Skin: Normal for age and race, grossly normal temperature and turgor. No acute rash. Neurologic: Moving all 4 extremities spontaneously. 5 out of 5 bilateral upper and lower extremity strength. No pronator drift. No facial asymmetry. Cranial nerves II through XII intact grossly. GCS 14: E4, V4, and 6. Psychiatric: Mood and manner are appropriate. Grooming and personal hygiene are appropriate. Related Data Home Medications Medication Instructions Recorded Confirmed metoprolol tartrate 25 mg tablet 25 mg PO BID #180 tab-caps 02/26/22 03/09/23 vit C 250 mg-vit E 200 unit-zinc 1 tab PO BID 07/08/22 03/09/23 12.5 mg-copper 1 [id number] tablet (ICaps AREDS2 (copper citrate)) albuterol sulfate 90 mcg/actuation 1 - 2 inh inhalation Q6H PRN 11/19/22 03/09/23 aerosol inhaler shortness of breath or wheezing #8.5 grams famotidine 20 mg tablet 20 mg PO QHS #90 tabs 11/19/22 03/09/23 vit A 7,160 unit-C 113 mg-E 100 1 tab PO DAILY 01/24/23 03/09/23 [id number] tablet,delayed rel. ferrous sulfate 325 mg (65 mg 325 mg PO .QOD 01/27/23 03/09/23 iron) tablet,delayed release simvastatin 5 mg tablet 5 mg PO DAILY 01/27/23 03/09/23 estradiol 0.01% (0.1 mg/gram) 1 g vaginal DAILY #42.5 grams 02/18/23 03/09/23 vaginal cream cefpodoxime 200 mg tablet 200 mg PO BID #10 tabs 03/04/23 03/09/23 Previous Rx's Medication Instructions Recorded metoprolol tartrate 25 mg tablet 25 mg PO BID #180 tab-caps 02/26/22 albuterol sulfate 90 mcg/actuation 1 - 2 inh inhalation Q6H PRN 11/19/22 aerosol inhaler shortness of breath or wheezing #8.5 grams famotidine 20 mg tablet 20 mg PO QHS #90 tabs 11/19/22 estradiol 0.01% (0.1 mg/gram) 1 g vaginal DAILY #42.5 grams 02/18/23 vaginal cream cefpodoxime 200 mg tablet 200 mg PO BID #10 tabs 03/04/23 Allergies Allergy/AdvReac Type Severity Reaction Status Date / Time ciprofloxacin [From Cipro] Allergy Intermediate Lips and Verified 03/09/23 14:34 face burn, feels shaky, arm tingly codeine AdvReac Intermediate Dizziness/L Verified 03/09/23 14:34 ightheade lovastatin AdvReac Intermediate myalgias Verified 03/09/23 14:34 oxycodone AdvReac Intermediate NAUSEA, GI Verified 03/09/23 14:34 UPSET azithromycin AdvReac cramping, Verified 03/09/23 14:34 anorexia doxycycline AdvReac Nausea, Verified 03/09/23 14:34 Vomiting hydrocodone AdvReac unknown Verified 03/09/23 14:34 General MELINDA: 3 PFSH All Active Problems (Updated 03/09/23 @ 18:21 by Radha Deras MD) Discharge planning issues (Acute) DVT prophylaxis (Acute) Acute electrocardiogram changes (Acute) Hypertensive urgency (Acute) Fall (Acute) Toxic metabolic encephalopathy (Acute) Acute hyponatremia (Acute) Complicated UTI (urinary tract infection) (Acute) Hyponatremia (Acute) SIADH (syndrome of inappropriate ADH production) (Chronic) Generalized weakness (Acute) Dehydration (Acute) Pancreatitis (Chronic) Hyponatremia (Acute) Constipation (Acute) Gastritis (Acute) Abdominal pain (Acute) Dysuria (Acute) Sore in nose (Acute) LUQ abdominal pain (Acute) Serrated adenoma of colon (Acute ~07/18/22) Neck pain on right side (Acute) Perforated diverticulum (Chronic) Dermatitis (Acute) Vaginitis, atrophic (Acute) Hyponatremia (Chronic) Multiple occasions last of which was 01/2021, 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 intestinal meta. or dysplasia Family history of GI malignancy Essential hypertension (01/14/13) Depressive disorder Atrophic vaginitis (08/19/11) Pt. states she is unsure [place]; rib fracture; lacerated liver; fx-pelvis; perf. intestine Family history of GI malignancy Surgical History KNEE SURGERY (~05/2012) Abdominal hysterectomy EGD - MAC (04/22/17) Colonoscopy - MAC (04/22/17) Colonoscopy - MAC (~02/2012) Cholecystectomy Bladder Surgery Bilateral salpingectomy with oophorectomy Arthroplasty of knee (05/27/12) LEFT - Pt denies knee replacement Family History Mother , AGE 84 Heart disease Father , AGE 87 Stroke Heart disease Cancer Sister Stroke Brother Alcohol abuse Cancer Brother Cancer of kidney Son Hyperlipidemia Pulmonary disease Daughter Thyroid disease Daughter Cancer s/p hysterectomy Daughter No problems noted. Daughter No problems noted. Brother No problems noted. Maternal Grandfather No problems noted. Paternal Grandfather No problems noted. Maternal Grandmother No problems noted. Paternal Grandfather No problems noted. Social History Smoking/Tobacco Use Status: Former Tobacco Use tobacco type: cigarettes Quit Date: 03/17/97 Second Hand Exposure: Yes Smoking risk assessment performed?: Yes Alcohol Intake: never Drug use: Never Substance use type: does not use Housing: house Communication Needs: Hard of Hearing Do you need help understanding health information?: Often Pets and animals: No Sexually active: No Do you think of yourself as: straight/heterosexual Current gender identity: female What is your relationship status?: How often do you talk on the phone with friends or family?: decline to answer How often do you attend shinto or uatsdin services?: decline to answer Do you belong to any clubs or organized social groups?: decline to answer Panel score (0-1 are the most socially isolated patients): 0 What type of physical activity do you participate in: walking Carri/Cheondoism: No preference Special carri needs: No 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
--- NOTE | 2023-03-09 14:15 | DI.RAD_ITS ---
Exam(s) XR CHEST 1V IN DI DEPT EXAM: XR CHEST 1V IN DI DEPT CLINICAL HISTORY: Confusion. TECHNIQUE: 2D digital imaging was performed. COMPARISON: CR,XR XR PORTABLE CHEST AP from 12/29/2019 CR XR CHEST 2V PA LATERAL from 01/29/2021 CR XR CHEST 2V PA LATERAL from 04/10/2021 FINDINGS: Single AP portable view. Heart size is upper normal. The mediastinum is not widened. Right lung is clear. Nodular infiltrate in the superior lingular segment of the left lung is again n oted; this is unchanged from prior chest x-rays dating back to at least December 2019. No new infiltr ates nor pleural effusions. No pulmonary edema. No obvious acute fractures. IMPRESSION: No acute pulmonary findings on this single AP portable view of the chest. Left lung lingular density is unchanged from December 2019. DATA REPOSITORY: RADIATION DOSE DELIVERED:
--- NOTE | 2023-03-09 14:15 | DI.CT_ITS ---
Exam(s) CT HEAD WO EXAM: CT HEAD WO CLINICAL HISTORY: Fall head strike. TECHNIQUE: Imaging Protocol: Axial computed tomography images with coronal and sagittal reformatted images were created and reviewed COMPARISON: CT CT HEAD WO from 03/03/2023 FINDINGS: There are no skull fractures. There is no fluid in the visualized paranasal sinuses. There is no evidence of intracranial hemorrhage, mass effect, or shift of midline structures. There are no extra-axial fluid collections. The ventricles are not enlarged or shifted and there is no blo od within the ventricular system nor within the basal cisterns. Again noted is abundant bilateral periventricular hypodensity consistent with chronic small vessel di sease. Calcification in the basal ganglia is unchanged. IMPRESSION: No acute intracranial findings on this noninfused CT scan of the brain. No evidence of intracranial hemorrhage, given the trauma history here. RADIATION DOSE DELIVERED: Total DLP DATA REPOSITORY: All CT scans at this facility are submitted to the National Radiology Data Registry (NRDR) Dose Index Registry (DIR) with the [employer] (ACR). RADIATION OPTIMIZATION: All CT scans at this facility use at least one of these dose optimization te chniques: automated exposure control; mA and/or kV adjustment per patient size (includes targeted exa ms where dose is matched to clinical indication); or iterative reconstruction.
[2023-03-09 14:52] LABS: Bilirubin Negative (Negative); Blood Negative (Negative); Clarity Clear (Clear); Glucose Negative (Negative); Ketones Negative (Negative); Leukocyte Esterase Negative (Negative); Nitrite Negative (Negative); Urobilinogen 0.2 mg/dL (Up to 0.2)
[2023-03-09 14:55] LABS: Abs Immature Grans 0.02 10^3/uL (0.0-0.06); Absolute Basophil Count 0.03 10^3/uL (0.0-0.2); Absolute Eosinophil Count 0.07 10^3/uL (0.0-0.7); Absolute Lymphocyte Count 0.93 10^3/uL (1.2-3.4); Absolute Monocyte Count 0.91 10^3/uL (0.1-0.8); Absolute Neutrophil Count 6.35 10^3/uL (1.2-6.7); Basophils % 0.4; Eosinophils % 0.8; HGB 12.6 g/dL (11.2-15.7); Immature Grans % 0.2; Lactate 1.4 mmol/L (0.6-1.4); Lymphocytes % 11.2; MCH 29.3 pg (27.0-33.0); MCHC 34.1 % (32.0-36.0); MCV 86 fL (80-95); MPV 9.6 fL (8.0-11.0); Neutrophils % 76.4; Platelet Count 204 10^3/uL (130-400); RDW 12.8 % (11.7-14.6); RDW-SD 40.3 fL; WBC 8.31 10^3/uL (4.4-10.8)
[2023-03-09 15:10] LABS: Anion Gap 6.9 mmol/L (3-11); BUN 16 mg/dL (7-18); CO2 30.1 mmol/L (21.0-32.0); CREATININE 0.8 mg/dL (0.55-1.02); Calcium 9.3 mg/dL (8.5-10.1); Chloride 86 mmol/L (98-107); Estimated GFR 71.71 (mL/min/1.73m2); Glucose 112 mg/dL (74-106); Magnesium 2.1 mg/dL (1.8-2.4); Potassium 4.8 mmol/L (3.5-5.1)
[2023-03-09 15:14] LABS: Sodium 123 mmol/L (136-145)
[2023-03-09 15:18] LABS: Troponin I < 50 ng/L (<or=60)
[2023-03-09] MEDS: cefTRIAXone 2 GM/50 ML BAG IVPB (15:25)
[2023-03-09] MEDS: SODIUM CHLORIDE 3% 500 ML 150 ML IV (15:40)
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
[2023-03-09 17:04] LABS: Anion Gap 4.5 mmol/L (3-11); BUN 15 mg/dL (7-18); CO2 30.5 mmol/L (21.0-32.0); CREATININE 0.7 mg/dL (0.55-1.02); Calcium 8.7 mg/dL (8.5-10.1); Chloride 89 mmol/L (98-107); Estimated GFR 84.17 (mL/min/1.73m2); Glucose 99 mg/dL (74-106); Potassium 4.8 mmol/L (3.5-5.1)
[2023-03-09 17:07] LABS: Sodium 124 mmol/L (136-145)
[2023-03-09 17:29] LABS: COVID-19 PCR Negative (Negative); Influenza A PCR Negative (Negative); Influenza B PCR Negative (Negative); RSV PCR Negative (Negative)
[2023-03-09 17:31] LABS: Source Nasopharynx
--- NOTE | 2023-03-09 17:48 | W.PC.ACHO ---
Registration Status: REG ER Primary Language: Preferred Language: Pashto ED Information & Data Chief Complaint GenMedical 03/09/23 14:23 Chief Complaint GenMedical 03/09/23 14:03 Triage Note Patient was recently 03/09/23 14:03 discharged from [facility] for a UTI. 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) Hyperlipidemia History of tobacco use Gastroesophageal reflux disease with esophagitis Family history of GI malignancy Essential hypertension (01/14/13) Depressive disorder Atrophic vaginitis (08/19/11) [place] Family history of GI malignancy (Last Reviewed 01/27/23 @ 07:04 by Tom Fernández DO) KNEE SURGERY (~05/2012) Abdominal hysterectomy EGD - MAC (04/22/17) Colonoscopy - MAC (04/22/17) Colonoscopy - MAC (~02/2012) Cholecystectomy Bladder Surgery Bilateral salpingectomy with oophorectomy Arthroplasty of knee (05/27/12) Most Recent Vital Signs Temperature 37.4 C 03/09/23 17:24 Temperature Source Skin 03/09/23 17:24 Pulse 75 03/09/23 17:31 Pulse 77 03/09/23 17:31 Respiratory Rate 14 03/09/23 17:31 Respiratory Effort Normal 03/09/23 14:23 Blood Pressure 182/68 H 03/09/23 17:31 Blood Pressure Mean 110 03/09/23 17:31 Blood Pressure Position Left Lateral 03/09/23 15:10 Pulse Oximetry 98 03/09/23 15:10 Oxygen Delivery Method Room Air 03/09/23 15:10 Oxygen Flow Rate 0 03/09/23 14:03 Comment unable to assess pain level recent UTI 03/09/23 15:10 Allergies ciprofloxacin [From Cipro] Allergy (Intermediate, Verified 03/09/23 14:34) Lips and face burn, feels shaky, arm tingly codeine Adverse Reaction (Intermediate, Verified 03/09/23 14:34) Dizziness/Lightheade lovastatin Adverse Reaction (Intermediate, Verified 03/09/23 14:34) myalgias oxycodone Adverse Reaction (Intermediate, Verified 03/09/23 14:34) NAUSEA, GI UPSET azithromycin Adverse Reaction (Verified 03/09/23 14:34) cramping, anorexia Lips burn, flushed feeling, felt heart racing doxycycline Adverse Reaction (Verified 03/09/23 14:34) Nausea, Vomiting hydrocodone Adverse Reaction (Verified 03/09/23 14:34) unknown pt. states she does not remember her reaction to this medication. Precautions Isolation Standard precaution 03/09/23 14:23 Active Medications Generic Name Dose Route Start Last Admin Trade Name Freq PRN Reason Stop Dose Admin Sodium Chloride (Hypertonic) 500 mls @ 150 mls/hr 03/09/23 15:19 03/09/23 16:00 Sodium Chloride 3% IV 03/09/23 18:38 0 mls/hr INFUSION ONE Infusion IV IV Catheter Type [Right Saline Lock Antecubital] IV Catheter Gauge [Right 20 Antecubital] Diet Orders Category Date Time Status Regular/Normal [DIET] Nutrition 03/09/23 Dinner Active Diagnostics 03/09/23 03/09/23 03/09/23 Range/Units 16:48 16:45 15:03 WBC (4.4-10.8) 10^3/uL RBC (3.93-5.22) 10^6/uL Hgb (11.2-15.7) g/dL Hct (36.0-46.0) % MCV (80-95) fL MCH (27.0-33.0) pg MCHC (32.0-36.0) % RDW (11.7-14.6) % Plt Count (130-400) 10^3/uL MPV (8.0-11.0) fL Immature Gran % Neutrophils % Lymphocytes % Monocytes % Eosinophils % Basophils % Nucleated RBC % (0.0-0.3) % Absolute Neutrophils (1.2-6.7) 10^3/uL Absolute Lymphocytes (1.2-3.4) 10^3/uL Absolute Monocytes (0.1-0.8) 10^3/uL Absolute Eosinophils (0.0-0.7) 10^3/uL Absolute Basophils (0.0-0.2) 10^3/uL VBG Lactate (0.6-1.4) mmol/L Sodium 124 L* (136-145) mmol/L Potassium 4.8 (3.5-5.1) mmol/L Chloride 89 L (98-107) mmol/L Carbon Dioxide 30.5 (21.0-32.0) mmol/L Anion Gap 4.5 (3-11) mmol/L BUN 15 (7-18) mg/dL Creatinine 0.7 (0.55-1.02) mg/dL Est GFR (CKD-EPI 2020) 84.17 (mL/min/1.73m2) Glucose 99 (74-106) mg/dL Calcium 8.7 (8.5-10.1) mg/dL Magnesium (1.8-2.4) mg/dL Troponin I (<or=60) ng/L Urine Color (Yellow) Urine Clarity (Clear) Urine pH (5-8) Ur Specific Erlanger (1.005-1.025) Urine Protein (Negative) mg/dL Urine Ketones (Negative) mg/dL Urine Blood (Negative) Urine Nitrite (Negative) Urine Bilirubin (Negative) Urine Urobilinogen (Up to 0.2) mg/dL Ur Leukocyte Esterase (Negative) Urine Glucose (Negative) mg/dL B. divergens/MO-1 PCR Pending Babesia duncani (PCR) Pending Babesia microti DNA PCR Pending Lyme Disease Antibody Pending COVID-19 Source Nasopharynx SARS-CoV-2 (PCR) Negative (Negative) E.chaffeensis DNA (PCR) Pending E.ewingii/canis DNA PCR Pending E.muris eauclairensis (PCR) Pending Influenza Type A (PCR) Negative (Negative) Influenza Type B (PCR) Negative (Negative) RSV (PCR) Negative (Negative) A. phagocytophilum (PCR) Pending Blood B. miyamotoi (PCR) Pending 03/09/23 03/09/23 Range/Units 14:45 14:30 WBC 8.31 (4.4-10.8) 10^3/uL RBC 4.30 (3.93-5.22) 10^6/uL Hgb 12.6 (11.2-15.7) g/dL Hct 37.0 (36.0-46.0) % MCV 86 (80-95) fL MCH 29.3 (27.0-33.0) pg MCHC 34.1 (32.0-36.0) % RDW 12.8 (11.7-14.6) % Plt Count 204 (130-400) 10^3/uL MPV 9.6 (8.0-11.0) fL Immature Gran % 0.2 Neutrophils % 76.4 Lymphocytes % 11.2 Monocytes % 11.0 Eosinophils % 0.8 Basophils % 0.4 Nucleated RBC % 0.0 (0.0-0.3) % Absolute Neutrophils 6.35 (1.2-6.7) 10^3/uL Absolute Lymphocytes 0.93 L (1.2-3.4) 10^3/uL Absolute Monocytes 0.91 H (0.1-0.8) 10^3/uL Absolute Eosinophils 0.07 (0.0-0.7) 10^3/uL Absolute Basophils 0.03 (0.0-0.2) 10^3/uL VBG Lactate 1.4 (0.6-1.4) mmol/L Sodium 123 L* (136-145) mmol/L Potassium 4.8 (3.5-5.1) mmol/L Chloride 86 L (98-107) mmol/L Carbon Dioxide 30.1 (21.0-32.0) mmol/L Anion Gap 6.9 (3-11) mmol/L BUN 16 (7-18) mg/dL Creatinine 0.8 (0.55-1.02) mg/dL Est GFR (CKD-EPI 2020) 71.71 (mL/min/1.73m2) Glucose 112 H (74-106) mg/dL Calcium 9.3 (8.5-10.1) mg/dL Magnesium 2.1 (1.8-2.4) mg/dL Troponin I < 50 (<or=60) ng/L Urine Color Yellow (Yellow) Urine Clarity Clear (Clear) Urine pH 7.0 (5-8) Ur Specific Erlanger 1.020 (1.005-1.025) Urine Protein Negative (Negative) mg/dL Urine Ketones Negative (Negative) mg/dL Urine Blood Negative (Negative) Urine Nitrite Negative (Negative) Urine Bilirubin Negative (Negative) Urine Urobilinogen 0.2 (Up to 0.2) mg/dL Ur Leukocyte Esterase Negative (Negative) Urine Glucose Negative (Negative) mg/dL B. divergens/MO-1 PCR Babesia duncani (PCR) Babesia microti DNA PCR Lyme Disease Antibody COVID-19 Source SARS-CoV-2 (PCR) (Negative) E.chaffeensis DNA (PCR) E.ewingii/canis DNA PCR E.muris eauclairensis (PCR) Influenza Type A (PCR) (Negative) Influenza Type B (PCR) (Negative) RSV (PCR) (Negative) A. phagocytophilum (PCR) Blood B. miyamotoi (PCR) 03/09/23 15:05 Blood Culture - Pending Blood 03/09/23 14:45 Blood Culture - Pending Blood 03/09/23 14:30 Urine Culture - Pending Urine - Voided [id number] Documentation Fingerstick Glucose Start: 03/09/23 14:38 Freq: Status: Active Protocol: Activity Type Activity Date Activity User E-sign Co-sign Detail Recorded Client Recorded Date Recorded By Document 03/09/23 14:37 BKG DAEMON(10) [id number] 03/09/23 14:38 BKG DAEMON(10) Intake and Output - 24 Hour Total 03/09/23 13:59 thru 03/09/23 16:00 Intake Total 210 Balance 210 Intake: IV 210 Falls Risk Assessment History of Falls Previous History 03/09/23 14:24 Ambulatory Aids Uses ambulatory device 03/09/23 14:24 Gait Evaluation W/any additional score 03/09/23 14:24 Cognition Cognitive impairment 03/09/23 14:24 Fall Total Score 65 03/09/23 14:24 Level of Risk High Risk 03/09/23 14:24 Problems (Last Reviewed 01/27/23 @ 07:04 by Tom Fernández DO) Acute hyponatremia (Acute) v v v v v v v v v Sending and/or Receiving Nurses: Please use comment section below to note any information pertinent to the patient hand-off not included above. Information / Comments: Report via phone with information as above. Fluvid negative. Somewhat restless. Accompanied by 2 daughters. All questions answered. Report received from: Mikaela Mckeon RN
--- NOTE | 2023-03-09 17:49 | W.PM.HP.N ---
Date of service: 03/09/23 Time of Service: 17:49 Assessment and Plan Assessment and plan (1) Acute hyponatremia: Status: Acute Assessment and plan: In setting of SIADH. Will monitor on NS with serial chemistries. Consider salt tablets. (2) Acute electrocardiogram changes: Status: Acute Assessment and plan: In setting of hypertensive urgency/emergency, hyponatremia. Recheck troponin pending. Repeat EKG back to the patient's baseline. Obtain an echocardiogram. Cardiac monitoring. No cardiac symptoms reported - will not start antiplatelet therapy unless we can prove a true ACS. (3) Hypertensive urgency: Status: Acute Assessment and plan: Resume home metoprolol. I have written for prn IV lopressor for SBPs>180. (4) Toxic metabolic encephalopathy: Status: Acute Assessment and plan: Due to above in addition to possible effects of a hypertensive crisis (?hypertensive emergency). Treat BP. Treat sodium. Monitor with neurochecks in the ICU. 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 C/s PT. (7) Fall: Status: Acute Assessment and plan: Suspect that this is due to hyponatremia/weakness. C/s PT. Fall precautions. (8) DVT prophylaxis: Status: Acute Assessment and plan: SC enoxaparin (9) Discharge planning issues: Status: Acute Assessment and plan: DNR/DNI History of Present Illness History of Present Illness Chief Complaint: confusion, dizziness, a fall Narrative: Ms Franklin is an 88 year old female with PMHx of a prior episode of hyponatremia felt to be due to SIADH, for which the patient was admitted to [facility] and discharged home on 03/04/23, as well as hypertension on metoprolol, a recent pansensitive E. Coli UTI, for which the patient had completed therapy with cefpodoxime, and anemia, who returned to [facility] ED today (brought in by daughter) with complaints of confusion, dizziness, generalized weakness, and a fall last night. Her sodium today was 123 when she first presented to the ED. She was written for 150 ccs of 3% saline. Repeat sodium is 124. While she empirically received a dose of ceftriaxone, her UA was actually negative. A hospitalist admission to the ICU was requested for symptomatic hyponatremia. The patient denies a headache, dizziness on my questioning, chest pain, states she is always short of breath, states that she always has poor vision due to macular degeneration, endorses dysuria, denies nausea or abdominal discomfort. She is A&Ox3 and very hard of hearing. She asks me: how come my sodium keeps screwing up? Review of Systems All systems reviewed & are unremarkable except as noted in HPI and below PFSH All Active Problems (Updated 03/09/23 @ 18:21 by Radha Deras MD) Discharge planning issues (Acute) DVT prophylaxis (Acute) Acute electrocardiogram changes (Acute) Hypertensive urgency (Acute) Fall (Acute) Toxic metabolic encephalopathy (Acute) Acute hyponatremia (Acute) Complicated UTI (urinary tract infection) (Acute) Hyponatremia (Acute) SIADH (syndrome of inappropriate ADH production) (Chronic) Generalized weakness (Acute) Dehydration (Acute) Pancreatitis (Chronic) Hyponatremia (Acute) Constipation (Acute) Gastritis (Acute) Abdominal pain (Acute) Dysuria (Acute) Sore in nose (Acute) LUQ abdominal pain (Acute) Serrated adenoma of colon (Acute ~07/18/22) Neck pain on right side (Acute) Perforated diverticulum (Chronic) Dermatitis (Acute) Vaginitis, atrophic (Acute) Hyponatremia (Chronic) Multiple occasions last of which was 01/2021, 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 intestinal meta. or dysplasia Family history of GI malignancy Essential hypertension (01/14/13) Depressive disorder Atrophic vaginitis (08/19/11) Pt. states she is unsure [place]; rib fracture; lacerated liver; fx-pelvis; perf. intestine Family history of GI malignancy Surgical History KNEE SURGERY (~05/2012) Abdominal hysterectomy EGD - MAC (04/22/17) Colonoscopy - MAC (04/22/17) Colonoscopy - MAC (~02/2012) Cholecystectomy Bladder Surgery Bilateral salpingectomy with oophorectomy Arthroplasty of knee (05/27/12) LEFT - Pt denies knee replacement Family History Mother , AGE 84 Heart disease Father , AGE 87 Stroke Heart disease Cancer Sister Stroke Brother Alcohol abuse Cancer Brother Cancer of kidney Son Hyperlipidemia Pulmonary disease Daughter Thyroid disease Daughter Cancer s/p hysterectomy Daughter No problems noted. Daughter No problems noted. Brother No problems noted. Maternal Grandfather No problems noted. Paternal Grandfather No problems noted. Maternal Grandmother No problems noted. Paternal Grandfather No problems noted. Social History Smoking/Tobacco Use Status: Former Tobacco Use tobacco type: cigarettes Quit Date: 03/17/97 Second Hand Exposure: Yes Smoking risk assessment performed?: Yes Alcohol Intake: never Drug use: Never Substance use type: does not use Housing: house Communication Needs: Hard of Hearing Do you need help understanding health information?: Often Pets and animals: No Sexually active: No Do you think of yourself as: straight/heterosexual Current gender identity: female What is your relationship status?: How often do you talk on the phone with friends or family?: decline to answer How often do you attend hinduism or hindu services?: decline to answer Do you belong to any clubs or organized social groups?: decline to answer Panel score (0-1 are the most socially isolated patients): 0 What type of physical activity do you participate in: walking Carri/Christianity: No preference Special carri needs: No Drive intox 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: No Do you feel safe at home: Yes Do you feel safe in your relationship?: Yes Meds Allergies and Home Medications Allergies Allergy/AdvReac Type Severity Reaction Status Date / Time ciprofloxacin [From Cipro] Allergy Intermediate Lips and Verified 03/09/23 14:34 face burn, feels shaky, arm tingly codeine AdvReac Intermediate Dizziness/L Verified 03/09/23 14:34 ightheade lovastatin AdvReac Intermediate myalgias Verified 03/09/23 14:34 oxycodone AdvReac Intermediate NAUSEA, GI Verified 03/09/23 14:34 UPSET azithromycin AdvReac cramping, Verified 03/09/23 14:34 anorexia doxycycline AdvReac Nausea, Verified 03/09/23 14:34 Vomiting hydrocodone AdvReac unknown Verified 03/09/23 14:34 Home Medications Medication Instructions Recorded Confirmed Type metoprolol tartrate 25 mg tablet 25 mg PO BID #180 tab-caps 02/26/22 03/09/23 Rx vit C 250 mg-vit E 200 unit-zinc 1 tab PO BID 07/08/22 03/09/23 History 12.5 mg-copper 1 [id number]-nyacmv tablet (ICaps AREDS2 (copper citrate)) albuterol sulfate 90 mcg/actuation 1 - 2 inh inhalation Q6H PRN 11/19/22 03/09/23 Rx aerosol inhaler shortness of breath or wheezing #8.5 grams famotidine 20 mg tablet 20 mg PO QHS #90 tabs 11/19/22 03/09/23 Rx vit A 7,160 unit-C 113 mg-E 100 1 tab PO DAILY 01/24/23 03/09/23 History [id number]-[id number] tablet,delayed rel. ferrous sulfate 325 mg (65 mg 325 mg PO .QOD 01/27/23 03/09/23 History iron) tablet,delayed release simvastatin 5 mg tablet 5 mg PO DAILY 01/27/23 03/09/23 History estradiol 0.01% (0.1 mg/gram) 1 g vaginal DAILY #42.5 grams 02/18/23 03/09/23 Rx vaginal cream cefpodoxime 200 mg tablet 200 mg PO BID #10 tabs 03/04/23 03/09/23 Rx Exam Narrative Exam Narrative: General: A very pleasant elderly female with difficulty hearing, A&Ox3, answers all questions appropriately when writing them out on a communication board, asks appropriate questions, follows commands Neurological: A&Ox3, no obvious focal deficits, [place] Psychiatric: Appropriate speech pattern/content Skin: Visible skin intact; does have a stage 1 decubitous ulcer on coccyx as noted by nursing HEENT: Atraumatic, normocephalic, EOMI, MMM, clear oropharynx, no submandibular or cervical lymphadenopathy, no goiter or JVD Cardiovascular: RRR, no m/r/g Lungs: CTAB anteriorly Gastrointestinal: soft, nontender, nondistended Genitourinary: deferred Extremities: no edema BLEs, 2+ pedal pulses B Results Imaging Additional studies: CXR: No acute pulmonary findings on this single AP portable view of the chest. Left lung lingular density is unchanged from December 2019. CT head: No acute intracranial findings on this noninfused CT scan of the brain. No evidence of intracranial hemorrhage, given the trauma history here. EKG #1: HR 70, NSR< nonspecific ST-T changes diffusely; prominent T waves are old. EKG #2: HR 72, NSR, nonspecific ST-T changes have resolved. Labs 03/09/23 14:45 03/09/23 16:48 Labs: Laboratory Results - last 24 hr 03/09/23 03/09/23 03/09/23 14:30 14:45 16:45 WBC 8.31 RBC 4.30 Hgb 12.6 Hct 37.0 MCV 86 MCH 29.3 MCHC 34.1 RDW 12.8 Plt Count 204 MPV 9.6 Immature Gran % 0.2 Neutrophils % 76.4 Lymphocytes % 11.2 Monocytes % 11.0 Eosinophils % 0.8 Basophils % 0.4 Nucleated RBC % 0.0 Absolute Neutrophils 6.35 Absolute Lymphocytes 0.93 L Absolute Monocytes 0.91 H Absolute Eosinophils 0.07 Absolute Basophils 0.03 VBG Lactate 1.4 Sodium 123 L* Potassium 4.8 Chloride 86 L Carbon Dioxide 30.1 Anion Gap 6.9 BUN 16 Creatinine 0.8 Est GFR (CKD-EPI 2020) 71.71 Glucose 112 H Calcium 9.3 Magnesium 2.1 Troponin I < 50 Urine Color Yellow Urine Clarity Clear Urine pH 7.0 Ur Specific [place] 1.020 Urine Protein Negative Urine Ketones Negative Urine Blood Negative Urine Nitrite Negative Urine Bilirubin Negative Urine Urobilinogen 0.2 Ur Leukocyte Esterase Negative Urine Glucose Negative COVID-19 Source Nasopharynx SARS-CoV-2 (PCR) Negative Influenza Type A (PCR) Negative Influenza Type B (PCR) Negative RSV (PCR) Negative 03/09/23 16:48 WBC RBC Hgb Hct MCV MCH MCHC RDW Plt Count MPV Immature Gran % Neutrophils % Lymphocytes % Monocytes % Eosinophils % Basophils % Nucleated RBC % Absolute Neutrophils Absolute Lymphocytes Absolute Monocytes Absolute Eosinophils Absolute Basophils VBG Lactate Sodium 124 L* Potassium 4.8 Chloride 89 L Carbon Dioxide 30.5 Anion Gap 4.5 BUN 15 Creatinine 0.7 Est GFR (CKD-EPI 2020) 84.17 Glucose 99 Calcium 8.7 Magnesium Troponin I Urine Color Urine Clarity Urine pH Ur Specific [place] Urine Protein Urine Ketones Urine Blood Urine Nitrite Urine Bilirubin Urine Urobilinogen Ur Leukocyte Esterase Urine Glucose COVID-19 Source SARS-CoV-2 (PCR) Influenza Type A (PCR) Influenza Type B (PCR) RSV (PCR) Last Vital Signs Temp 37.4 C 03/09/23 17:24 Pulse 75 03/09/23 17:31 Resp 14 03/09/23 17:31 BP 182/68 H 03/09/23 17:31 Pulse Ox 98 03/09/23 15:10 Time Spent Time spent with Patient: 55-74 minutes Time was spent: preparing to see the patient(eg.review tests), obtaining and/or reviewing separately otained hiistory, ordering medications,tests, procedures, referring, communicating with other health rental boats caretaker, indepentently interpreting results, counseling the patient and care coordination
--- OUTSIDE RECORDS SUMMARY | 2023-03-09 17:54 | XMS_ITS | Continuity of Care Document ---
Author Name Unknown Organization [facility] Address [address] [place] [id number] Care Team Providers Care Wheel Cutter Name Role Phone YURIY ISAAC DNP Primary Care Physician [phone] Encounter [facility] FIN NBR [id number] Date(s): 02/21/23 - 02/21/23 [facility] [address] [place] [address]- [place] Discharge Disposition: Home Allergies, Adverse Reactions, Alerts Substance Reaction Severity Status ciprofloxacin Burning sensation Moderate Active codeine Dizziness Moderate Active doxycycline Nausea and vomiting Moderate Active azithromycin Cramping Moderate Active lovastatin Myalgia Moderate Active oxyCODONE Nausea Moderate Active Assessment and Plan Future Scheduled Tests Radiology* XR Barium Swallow 02/21/23 Medications Albuterol (Eqv-ProAir HFA) 90 mcg/inh inhalation aerosol 0 Refill(s) Start Date: 02/21/23 Status: Ordered estradiol 0.1 mg/g vaginal cream PLACE 1G VAGINALLY DAILY FOR 1 WEEK AND THEN 3TIMES PER WEEK Start Date: 02/21/23 Status: Ordered famotidine 20 mg oral tablet 20 mg = 1 tab, Oral, Daily, # 30 tab, 0 Refill(s) Start Date: 02/21/23 Status: Ordered Metoprolol Tartrate 25 mg oral tablet TAKE ONE TABLET BY MOUTH TWICE A DAY Start Date: 02/21/23 Status: Ordered mupirocin 2% topical ointment APPLY SMALL AMOUNT TO AFFECTED AREA TWO TIMES A DAY Start Date: 02/21/23 Status: Ordered omeprazole 40 mg oral delayed release capsule TAKE ONE CAPSULE BY MOUTH EVERY DAY Start Date: 02/21/23 Status: Ordered PreserVision AREDS 2 oral capsule 1 cap, Oral, BID, # 60 cap, 0 Refill(s) Start Date: 02/21/23 Status: Ordered simvastatin 5 mg oral tablet TAKE ONE TABLET BY MOUTH AT BEDTIME Start Date: 02/21/23 Status: Ordered Problem List Condition Confirmation Course Effective Dates Status Health [facility] Informant Abdominal pain Confirmed Active Bilateral hearing loss Confirmed Active Constipation Confirmed Active Dysphagia Confirmed Active Esophagitis Confirmed Active Gastritis Confirmed Active GERD - Gastro-esophageal reflux disease Confirmed Active History of urinary tract infection Confirmed Active Nausea Confirmed Active Right lateral abdominal pain Confirmed Active Procedures Procedure Date Related Diagnosis Body Site Status Cholecystectomy Completed Colonoscopy Completed EGD (esophagogastroduodenosc opy) and closure of duodenal fistula Comp leted Flexible sigmoidoscopy Co mpleted Social History Social History Type Response Tobacco Never tobacco user T obacco Use:. Sex Patient Care team information Care Team Personnel Name: YURIY ISAAC DNP Position: No Access Member Role: Primary Care Physician Address: Address: [address] [address]- [place]
--- OUTSIDE RECORDS SUMMARY | 2023-03-09 17:54 | XMS_ITS | Continuity of Care Document ---
Author Name Unknown Organization [facility] Address [address] [place] [address] Care Team Providers Care Aircraft Structural Design Engineer Name Role Phone YURIY ISAAC DNP Primary Care Physician [phone] Encounter [facility] NBR [id number] Date(s): 02/21/23 - 02/21/23 [facility] [address] [place], [place] [address] Encounter Diagnosis GERD - Gastro-esophageal reflux disease(Discharge Diagnosis) - 02/21/23 Sherwood's esophagus(Discharge Diagnosis) - 02/21/23 Nausea(Discharge Diagnosis) - 02/21/23 Right lateral abdominal pain(Discharge Diagnosis) - 02/21/23 Constipation(Discharge Diagnosis) - 02/21/23 Dysphagia(Discharge Diagnosis) - 02/21/23 Discharge Disposition: Home or Self Care Attending Physician: Morenita Hunt APRN Referring Physician: GRIS STAPLES APRN Allergies, Adverse Reactions, Alerts Substance Reaction Severity Status ciprofloxacin Burning sensation Moderate Active codeine Dizziness Moderate Active doxycycline Nausea and vomiting Moderate Active azithromycin Cramping Moderate Active lovastatin Myalgia Moderate Active oxyCODONE Nausea Moderate Active Assessment and Plan Future Scheduled Tests Radiology* XR Barium Swallow 02/21/23 Functional Status 02/21/23 Other exposure to Infectious Disease Non e Medications Albuterol (Eqv-ProAir HFA) 90 mcg/inh inhalation [...] fistula Comp leted Flexible sigmoidoscopy Co mpleted Vital Signs Most recent to oldest [Reference Range]: 1 Temperature Temporal Artery [36-38 Deg C ] 35.6 Deg C *LOW* (02/21/23 10:59 AM) Apical Heart Rate [60-100 bpm] 67 bpm (02/21/23 10:59 AM) Blood Pressure [90-140/60-90 mmHg] 170/8 2mmHg *HI* (02/21/23 10:59 AM) Mean Arterial Pressure, Cuff [70-110 mmH g] 111 mmHg *HI* (02/21/23 10:59 AM) Weight 56.0 kg (02/21/23 10:59 AM) Weight Measured (lbs) 123.459 lb (02/21/23 10:59 AM) Weight Dosing 56.000 kg (02/21/23 10:59 AM) [employer] Body Weight Calculated 47.8 kg (02/21/23 10:59 AM) Height 154.94 cm (02/21/23 10:59 AM) Height/Length Measured (inches) 61 inch (02/21/23 10:59 AM) BSA Measured 1.55 m2 (02/21/23 10:59 AM) Body Mass Index 23.33 kg/m2 (02/21/23 10:59 AM) Social History Social History Type Response Tobacco Never tobacco user T obacco Use:. Sex Physician Outpatient Note * Morenita Hunt APRN: PERFORM Event Display: Office Clinic Note Physician Authored Date: [id number] MODE LEE :1935 Age:87 years Sex:Female Visit Date:02/21/2023 Primary Care Physician: YURIY ISAAC DNP Chief Complaint Erosive gastritis, GERD and Sherwood's esophagus History of Present Illness Patient is an 87-year-old female here today at the request of Yuriy Busby APRN for for a follow-up. ??She is an established patient last seen 05/06/2020.?? She has a history of lifelong GI problems, strong family history of colon cancer, personal history of colon polyps and Sherwood's esophagus is sent for recent exacerbation of chronic abdominal symptoms. ?? Today she comes in with??a female friend by the name of Cyndy. ??Patient??complains of??right lateral and posterior pain??this morning that was relieved with Tylenol. ??She states when she saw??her PCPs office??3 weeks ago??she had similiar symptoms and diagnosed with UTI.?? Pain resolved with walking and movement. She denies any pain??or burning on urination at this time.?? Feels nauseated in the morning. ??Does not vomit. ??She denies any pyrosis or dyspepsia. ??She takes omeprazole 40 mg??every morning. ??She also uses Zofran once daily.?? She states she is beginning to have constipation. ? ?She has soft small stools that occur??every 1 to 2 days??with the help of MiraLAX.?? She is unsureif it is working. ??Her appetite is diminished??and she describes a low fiber diet.?? She also says??that she has to pur??e her foods.?? She??has??some medical forms in the folder she had me review??showing a soft diet for July 15 and July 16??for surgery at [facility]. ??Unsure if her soft diet was??only preparation for surgery??or because she is having dysphagia. ??She does admit to dysphagia pills at times.?? Patient is a vague historian.?? She denies any coughing??or need to induce vomiting while eating.?? She does not think she has lost weight. ?? Patient underwent bidirectional endoscopy on 04/22/[address] Pichardo at [facility]. 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 The patient reports that she has been told in the past she has a precancerous condition of her esophagus. ?? In May 2019 the patient had sudden onset of shaking chills dry heaves epigastric pain radiating to the lower abdomen as well as diarrhea. She had decreased appetite and has had a 20 pound weight loss since that time which has recently stabilized. During that time she was not having bloody diarrhea or black stools. She has not recently used any antiemetics. She underwent CT scan of the chest abdomen pelvis on 06/21/2019 which was negative. At that time CBC liver enzymes and lipase were normal. On 06/27/[address] scanning of the abdomen and pelvis without contrast which showed pandiverticulosis, CBC and liver enzymes are normal at that time. The patient was treated within the last c ouple of months with a short course of anxiolytics which initially helped her symptoms. ?? 11/02/2019 EGD showed gastric erythema the biopsy showing reactive chemical gastropathy. No celiac or H. pylori noted.?? No evidence of Sherwood's esophagus. ?? 11/02/2019 she had a colonoscopy with severe pandiverticulosis with mycosis of the sigmoid colon. There was a polyp in the ascending colon that was a tubular adenoma. ?? 02/13/2023 and 01/27/[address]??of the abdomen pelvis??without contrast showing sigmoid diverticulosis otherwise unremarkable. ?? She had a flexible sigmoidoscopy on 07/18/2022 at [facility] showing a serrated adenoma. ?? Family history is significant for father being diagnosed with colorectal cancer over 50 years old and brother being diagnosed with colorectal cancer at an unknown age. The patient lives alone and does her own cooking and cleaning. She does not drive due to macular degeneration. She has 5 children, 4 of whom are living in the area. Patient denies feeling depressed or anxious. She is a somewhat vague historian. Review of Systems Pertinent positives and negatives are discussed in HPI. Physical Exam Vitals & Measurements T:??35.6?C ??(Temporal Artery)?? HR:??67??(Apical)?? BP:??170/82?? SpO2:??93%?? HT:??154.94??cm?? WT:??56.0??kg?? BMI:??23.33?? BSA:??1.55?? General: Well-nourished well-developed??female??in no acute distress. HEENT: Head is normocephalic, trachea midline, and no cervical lymphadenopathy. Respiratory: Respirations are even and unlabored. ??Lungs are clear to auscultation. Cardiovascular: Regular rate and rhythm with S1 and S2. Abdomen: Positive bowel sounds x4 quadrants, no masses, no guarding, no tenderness. ??No hepatosplenomegaly. ??Abdomen is soft. Skin: Warm, dry, and pink. Neurological: Alert and oriented x3, speech is clear and gait is steady. Psychological: Pleasant, calm and cooperative. Assessment/Plan 1.??GERD - Gastro-esophageal reflux disease??K21.9 Advise as patient is having nausea in the morning she take omeprazole 40 mg 30 minutes before evening meal.?? Will reevaluate in 3 to 4 weeks. Ordered: XR Barium Swallow, 02/21/23, Routine, Reason: dysphagia of solids and pills, vague, does a soft diet, unclear why, Barium swallow with tablet and barium swallow with ST., Transport Mode: Ambulatory, GERD - Gastro-esophageal reflux disease Sherwood's esophagus Nausea... ?? 2.??Sherwood's esophagus??K22.70 Last EGD in 2019 showed no evidence of Sherwood's esophagus. ??No concerns at this time??warranting another EGD. Ordered: XR Barium Swallow, 02/21/23, Routine, Reason: dysphagia of solids and pills, vague, does a soft diet, unclear why, Barium swallow with tablet and barium swallow with ST., Transport Mode: Ambulatory, GERD - Gastro-esophageal reflux disease Sherwood's esophagus Nausea... ?? 3.??Nausea??R11.0 As above. Ordered: XR Barium Swallow, 02/21/23, Routine, Reason: dysphagia of solids and pills, vague, does a soft diet, unclear why, Barium swallow with tablet and barium swallow with ST., Transport Mode: Ambulatory, GERD - Gastro-esophageal reflux disease Sherwood's esophagus Nausea... ?? 4.??Right lateral abdominal pain??R10.9 Relieved with Tylenol and improved with walking.?? Question muscle skeletal. ??Her pain is also posterior and similar to UTI symptoms she has had in the past.?Advised to follow-up with her primarycare provider to rule out??urinary tract infection??if she has ongoing symptoms. Ordered: XR Barium Swallow, 02/21/23, Routine, Reason: dysphagia of solids and pills, vague, does a soft diet, unclear why, Barium swallow with tablet and barium swallow with ST., Transport Mode: Ambulatory, GERD - Gastro-esophageal reflux disease Sherwood's esophagus Nausea... ?? 5.??Constipation??K59.00 Recommend MiraLAX 17 g in 8 ounces of fluid daily.?? Patient has a low fiber diet. ??Add Metamucil??1 dose daily. Ordered: XR Barium Swallow, 02/21/23, Routine, Reason: dysphagia of solids and pills, vague, does a soft diet, unclear why, Barium swallow with tablet and barium swallow with ST., Transport Mode: Ambulatory, GERD - Gastro-esophageal reflux disease Sherwood's esophagus Nausea... ?? 6.??Dysphagia??R13.10 Patient is describing a soft diet unclear whether??she is having dysphagia otherwise??other than with pills. ??Obtain barium swallow with speech therapy??and??with tablet??for further evaluation.?? If esophageal stricture noted consider EGD for esophageal dilation. Ordered: XR Barium Swallow, 02/21/23, Routine, Reason: dysphagia of solids and pills, vague, does a soft diet, unclear why, Barium swallow with tablet and barium swallow with ST., Transport Mode: Ambulatory, GERD - Gastro-esophageal reflux disease Sherwood's esophagus Nausea... ?? Orders: Follow-up Appointment Request [id number], *Est. 03/14/23 +/- 4 days, Future Order, f/u dysphagia, GERD, nausea and constiaption, In Approximately, [facility] Gastroenterology Voice recognition software utilized which may result in minor glass unloading equipment tender error. Patient Instructions 1. Change omeprazole to 30 minutes before evening meal. 2. Start taking Metamucil with juice or water daily to help with constipation. 3. Will get a barium swallow test to see if there are any issues with swallowing. Future Orders XR Barium Swallow, 02/21/23, Routine, Reason: dysphagia of solids and pills, vague, does a soft diet, unclear why, Barium swallow with tablet and barium swallow with ST., Transport Mode: Ambulatory, GERD - Gastro-esophageal reflux disease Sherwood's esophagus Nausea... Problem List/Past Medical History Ongoing Abdominal pain Bilateral hearing loss Constipation Dysphagia Esophagitis Gastritis GERD - Gastro-esophageal reflux disease History of urinary tract infection Nausea Right lateral abdominal pain Historical Sherwood's esophagus Procedure/Surgical History ???Cholecystectomy???Colonoscopy???EGD (esophagogastroduodenoscopy) and closure of duodenal fistula???Flexible sigmoidoscopy Medications Albuterol (Eqv-ProAir HFA) 90 mcg/inh inhalation aerosol estradiol 0.1 mg/g vaginal cream famotidine 20 mg oral tablet, 20 mg= 1 tab, Oral, Daily Metoprolol Tartrate 25 mg oral tablet mupirocin 2% topical ointment omeprazole 40 mg oral delayed release capsule PreserVision AREDS 2 oral capsule, 1 cap, Oral, BID simvastatin 5 mg oral tablet Allergies azithromycin??(Cramping) ciprofloxacin??(Burning sensation) codeine??(Dizziness) doxycycline??(Nausea and vomiting) lovastatin??(Myalgia) oxyCODONE??(Nausea) Social History Alcohol Never Electronic Cigarette/Vaping Electronic Cigarette Use: Never. Substance Use Never Tobacco Never tobacco user Tobacco Use:. Family History Family Member(s): ?? FATHER, at age: Unknown. Cause of : colon cancer Family Member(s): ?? BROTHER, at age: Unknown. Cause of : colon cancer Electronically Signed on 02/21/23 11:59 AM Morenita Hunt APRN Outpatient Summary note * Samantha Cifuentes: PERFORM Event Display: Ambulatory Patient Summary Authored Date: [id number] MODE LEE :1935 Age:87 years Sex:Female Visit Date:02/21/2023 Primary Care Physician: YURIY ISAAC DNP Ambulatory Visit Instructions We would like to thank you for allowing us to assist you with your healthcare needs. The following includes patient education materials and information regarding your injury/illness. Your Next Steps Instructions From Your Care Team 1. Change omeprazole to 30 minutes before evening meal. 2. Start taking Metamucil with juice or water daily to help with constipation. 3. Will get a barium swallow test to see if there are any issues with swallowing. Medications What How Much When Instructions Unchanged albuterol (Albuterol (Eqv-ProAir HFA) 90 mcg/ inh inhalation aerosol) Unchanged estradiol topical (estradiol 0.1 mg/ g vaginal cream) PLACE 1G VAGINALLY DAILY FOR 1 WEEK AND THEN 3TIMES PER WEEK ?? Unchanged famotidine (famotidine 20 mg oral tablet) 1 tab Oral (given by mouth) Every day Unchanged metoprolol (Metoprolol Tartrate 25 mg oral tablet) TAKE ONE TABLET BY MOUTH TWICE A DAY ?? Unchanged multivitamin with minerals (PreserVision AREDS 2 oral capsule) 1 Capsules Oral (given by mouth) 2 times a day Unchanged mupirocin topical (mupirocin 2% topical ointment) APPLY SMALL AMOUNT TO AFFECTED AREA TWO TIMES A DAY ?? Unchanged omeprazole (omeprazole 40 mg oral delayed release capsule) TAKE ONE CAPSULE BY MOUTH EVERY DAY ?? Unchanged simvastatin (simvastatin 5 mg oral tablet) TAKE ONE TABLET BY MOUTH AT BEDTIME ?? Your Summary Problems Ongoing - Any problem that you are currently receiving treatment for. Abdominal pain Sherwood's esophagus Bilateral hearing loss Esophagitis Gastritis GERD - Gastro-esophageal reflux disease History of urinary tract infection Your Care Team Attending Physician - Morenita Hunt APRN Primary Care Physician - YURIY ISAAC DNP Referring Physician - GRIS STAPLES APRN Discharge Vitals Temperature??(Temporal Artery) 96.1 ??F (35.6 ??C) Heart Rate??(Apical) 67 Blood Pressure?? 170/82?? Height?? 61.00 in (154.94 cm) Weight?? 123.48 lb (56.0 kg) BMI?? 23.33 Allergies azithromycin??(Cramping) ciprofloxacin??(Burning sensation) codeine??(Dizziness) doxycycline??(Nausea and vomiting) lovastatin??(Myalgia) oxyCODONE??(Nausea) Electronically Signed on: 02/21/2023 11:41 ESTSigned by: Patient Care team information Care Team Personnel Name: YURIY ISAAC DNP Position: No Access Member Role: Primary Care Physician Address: Address: [id number] [place] [address]
--- OUTSIDE RECORDS SUMMARY | 2023-03-09 17:54 | XMS_ITS | Continuity of Care Document ---
Author Name Unknown Organization [facility] Address [address] [place] [address] Care Team Providers Care Cardiology Manager Name Role Phone YURIY ISAAC DNP Primary Care Physician [phone] Encounter [facility] NBR [id number] Date(s): 02/25/23 - 02/25/23 [facility] [address] [place] [address]- [place] Discharge Disposition: Home Allergies, Adverse Reactions, Alerts Substance Reaction Severity Status ciprofloxacin Burning sensation Moderate Active codeine Dizziness Moderate Active doxycycline Nausea and vomiting Moderate Active azithromycin Cramping Moderate Active lovastatin Myalgia Moderate Active oxyCODONE Nausea Moderate Active Assessment and Plan Future Appointments Future Scheduled Tests Radiology* XR Barium Swallow 03/03/23 Medications Albuterol (Eqv-ProAir HFA) 90 mcg/inh inhalation [...] Member Role: Primary Care Physician Address: Address: [address] [address]- [place]
--- NOTE | 2023-03-09 18:00 | RT.EKG_ITS ---
APPROVED REPORT Exam: Resting ECG Reason for Exam: follow up ST-T changes Patient Location: I HR:73 bpm ECG Measurements Heart Rate 73 AXIS SC 171 P 51 QRSd 86 QRS 60 QT 378 T 39 QTc 417 Conclusion Sinus rhythm...normal P axis, V-rate 50- 99 Left atrial enlargement...P, P'>60mS, <-0.15mV V1 I have reviewed and interpreted ECG and agree with software generated interpretation.
[2023-03-09 18:38] LABS: Lab Add On Test DONE
[2023-03-09 18:54] LABS: Troponin I < 50 ng/L (<or=60)
[2023-03-09] MEDS: Normal Saline 1,000 ML 100 ML IV (19:18)
[2023-03-09] MEDS: Metoprolol 25 MG TAB PO (23:05)
[2023-03-09] MEDS: Famotidine 20 MG TAB PO (23:05)
[2023-03-09] MEDS: Enoxaparin 30 MG/0.3 ML SYR SC (23:08)
[2023-03-10] VITALS (23 sets, daily range): BP systolic 92–184; BP diastolic 43–137; PULSE 51–75; RESP 11–24; TEMP 36.4–37.1; O2SAT 93–98
[2023-03-10 00:30] LABS: Anion Gap 5.7 mmol/L (3-11); BUN 13 mg/dL (7-18); CO2 27.3 mmol/L (21.0-32.0); CREATININE 0.6 mg/dL (0.55-1.02); Calcium 8.2 mg/dL (8.5-10.1); Chloride 89 mmol/L (98-107); Estimated GFR 87.36 (mL/min/1.73m2); Glucose 102 mg/dL (74-106); Potassium 4.3 mmol/L (3.5-5.1)
[2023-03-10] MEDS: Normal Saline 1,000 ML 100 ML IV (03:23)
[2023-03-10 05:13] LABS: Sodium 122 mmol/L (136-145)
[2023-03-10 06:39] LABS: Abs Immature Grans 0.02 10^3/uL (0.0-0.06); Absolute Basophil Count 0.04 10^3/uL (0.0-0.2); Absolute Eosinophil Count 0.15 10^3/uL (0.0-0.7); Absolute Monocyte Count 0.74 10^3/uL (0.1-0.8); Absolute Neutrophil Count 4.17 10^3/uL (1.2-6.7); Basophils % 0.7; Eosinophils % 2.5; HCT 35.7 % (36.0-46.0); HGB 12.1 g/dL (11.2-15.7); Immature Grans % 0.3; MCH 29.7 pg (27.0-33.0); MCHC 33.9 % (32.0-36.0); MCV 88 fL (80-95); MPV 10.6 fL (8.0-11.0); Monocytes % 12.3; Neutrophils % 69.2; Platelet Count 188 10^3/uL (130-400); RBC 4.08 10^6/uL (3.93-5.22); RDW 12.7 % (11.7-14.6); RDW-SD 40.9 fL; WBC 6.02 10^3/uL (4.4-10.8)
[2023-03-10 06:56] LABS: Anion Gap 5.6 mmol/L (3-11); BUN 12 mg/dL (7-18); CO2 28.4 mmol/L (21.0-32.0); CREATININE 0.7 mg/dL (0.55-1.02); Calcium 8.6 mg/dL (8.5-10.1); Chloride 92 mmol/L (98-107); Estimated GFR 84.17 (mL/min/1.73m2); Glucose 90 mg/dL (74-106); Magnesium 1.9 mg/dL (1.8-2.4); Potassium 4.4 mmol/L (3.5-5.1); Sodium 126 mmol/L (136-145)
[2023-03-10] MEDS: Ferrous Sulfate 325 MG TAB PO (08:29)
[2023-03-10] MEDS: Metoprolol 25 MG TAB PO ×2 (08:29→19:56)
[2023-03-10] MEDS: Multivitamin TAB 1 TAB PO (08:29)
--- NOTE | 2023-03-10 09:53 | PGE_ITS ---
Date of Service Date of service: 03/10/23 Time of Service: 09:00 Assessment and Plan Assessment and plan (1) Acute hyponatremia: Status: Acute Assessment and plan: In setting of SIADH. Sodiums are improving on NS. Continue NS. Continue monitoring serial chemistries. Consider salt tablets. On fluid restriction. (2) Acute electrocardiogram changes: Status: Resolved Assessment and plan: In setting of hypertensive urgency/emergency, hyponatremia. Ruled out for ACS by troponins, and repeat EKG normalized. Await echocardiogram. Cardiac monitoring. No cardiac symptoms reported - will not start antiplatelet therapy unless we can prove a true ACS. (3) Hypertensive urgency: Status: Resolved Assessment and plan: Continue home metoprolol. We might have to uptitrate the dose. I have written for prn IV lopressor for SBPs>180. (4) Toxic metabolic encephalopathy: Status: Acute Assessment and plan: Due to above in addition to possible effects of a hypertensive crisis (?hypertensive emergency). I think her mentation is better and is confounded by hearing difficulty. She does best when using a communication board. Treat BP. Treat sodium. Monitor with neurochecks in the ICU. 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 Await PT consult. (7) Fall: Status: Acute Assessment and plan: Suspect that this is due to hyponatremia/weakness. Await PT consult. Fall precautions. (8) DVT prophylaxis: Status: Acute Assessment and plan: SC enoxaparin (9) Discharge planning issues: Status: Acute Assessment and plan: DNR/DNI Keep in the ICU. Total Critical Care Time 35 minutes. Subjective Subjective Interval history since last seen: Ms Franklin states she had a headache but does not have one now. She feels short of breath. I have COPD, but I feel more short of breath now than I did a month ago. Denies CP, states she feels a little queezy. No new neurological deficits overnight. She is not sure she wants us to continue treating her. She gets visibly upset when I ask her if she wants us to stop. I won't have anything to leave for my children. We do agree that, until she is sure as to what she wants us to do, we will continue treatment with IVF and following her sodiums. Exam Narrative Exam Narrative: General: A pleasant elderly female who is very [place], A&Ox2, sitting up in a chair, visibly upset when talking about goals of care HEENT: EOMI, MMM Heart: RRR, no m/r/g Lungs: CTAB Abdomen: soft, nontender, nondistended Extremities: no edema BLEs Objective Last Vital Signs Temp 37.1 C 03/10/23 07:27 Pulse 59 L 03/10/23 06:01 Resp 19 03/10/23 07:27 BP 148/60 H 03/10/23 07:27 Pulse Ox 96 03/10/23 07:27 Laboratory Results - last 24 hr 03/09/23 03/09/23 03/09/23 14:30 14:45 16:45 WBC 8.31 RBC 4.30 Hgb 12.6 Hct 37.0 MCV 86 MCH 29.3 MCHC 34.1 RDW 12.8 Plt Count 204 MPV 9.6 Immature Gran % 0.2 Neutrophils % 76.4 Lymphocytes % 11.2 Monocytes % 11.0 Eosinophils % 0.8 Basophils % 0.4 Nucleated RBC % 0.0 Absolute Neutrophils 6.35 Absolute Lymphocytes 0.93 L Absolute Monocytes 0.91 H Absolute Eosinophils 0.07 Absolute Basophils 0.03 VBG Lactate 1.4 Sodium 123 L* Potassium 4.8 Chloride 86 L Carbon Dioxide 30.1 Anion Gap 6.9 BUN 16 Creatinine 0.8 Est GFR (CKD-EPI 2020) 71.71 Glucose 112 H Calcium 9.3 Magnesium 2.1 Troponin I < 50 Urine Color Yellow Urine Clarity Clear Urine pH 7.0 Ur Specific [place] 1.020 Urine Protein Negative Urine Ketones Negative Urine Blood Negative Urine Nitrite Negative Urine Bilirubin Negative Urine Urobilinogen 0.2 Ur Leukocyte Esterase Negative Urine Glucose Negative COVID-19 Source Nasopharynx SARS-CoV-2 (PCR) Negative Influenza Type A (PCR) Negative Influenza Type B (PCR) Negative RSV (PCR) Negative Add-On Test Request 03/09/23 03/09/23 03/10/23 16:48 18:37 00:11 WBC RBC Hgb Hct MCV MCH MCHC RDW Plt Count MPV Immature Gran % Neutrophils % Lymphocytes % Monocytes % Eosinophils % Basophils % Nucleated RBC % Absolute Neutrophils Absolute Lymphocytes Absolute Monocytes Absolute Eosinophils Absolute Basophils VBG Lactate Sodium 124 L* 122 L* Potassium 4.8 4.3 Chloride 89 L 89 L Carbon Dioxide 30.5 27.3 Anion Gap 4.5 5.7 BUN 15 13 Creatinine 0.7 0.6 Est GFR (CKD-EPI 2020) 84.17 87.36 Glucose 99 102 Calcium 8.7 8.2 L Magnesium Troponin I < 50 Urine Color Urine Clarity Urine pH Ur Specific [place] Urine Protein Urine Ketones Urine Blood Urine Nitrite Urine Bilirubin Urine Urobilinogen Ur Leukocyte Esterase Urine Glucose COVID-19 Source SARS-CoV-2 (PCR) Influenza Type A (PCR) Influenza Type B (PCR) RSV (PCR) Add-On Test Request DONE 03/10/23 05:35 WBC 6.02 RBC 4.08 Hgb 12.1 Hct 35.7 L MCV 88 MCH 29.7 MCHC 33.9 RDW 12.7 Plt Count 188 MPV 10.6 Immature Gran % 0.3 Neutrophils % 69.2 Lymphocytes % 15.0 Monocytes % 12.3 Eosinophils % 2.5 Basophils % 0.7 Nucleated RBC % 0.0 Absolute Neutrophils 4.17 Absolute Lymphocytes 0.90 L Absolute Monocytes 0.74 Absolute Eosinophils 0.15 Absolute Basophils 0.04 VBG Lactate Sodium 126 L Potassium 4.4 Chloride 92 L Carbon Dioxide 28.4 Anion Gap 5.6 BUN 12 Creatinine 0.7 Est GFR (CKD-EPI 2020) 84.17 Glucose 90 Calcium 8.6 Magnesium 1.9 Troponin I Urine Color Urine Clarity Urine pH Ur Specific [place] Urine Protein Urine Ketones Urine Blood Urine Nitrite Urine Bilirubin Urine Urobilinogen Ur Leukocyte Esterase Urine Glucose COVID-19 Source SARS-CoV-2 (PCR) Influenza Type A (PCR) Influenza Type B (PCR) RSV (PCR) Add-On Test Request Time Spent with Patient Time Spent with Patient: 35-49 minutes Time was spent: preparing to see the patient(eg.review tests), obtaining and/or reviewing separately otained hiistory, ordering medications,tests, procedures, referring, communicating with other health clinical care leader, indepentently interpreting results, counseling the patient and care coordination
[2023-03-10] MEDS: Normal Saline 1,000 ML 150 ML IV ×2 (10:30→23:17)
[2023-03-10] MEDS: Polyethylene Glycol 3350 17 GM PACKET PO (10:35)
[2023-03-10] MEDS: Refresh PLUS Eye Drops 0.4ml 1 EACH OU (12:11)
[2023-03-10 12:18] LABS: Anion Gap 6.5 mmol/L (3-11); BUN 15 mg/dL (7-18); CO2 27.5 mmol/L (21.0-32.0); CREATININE 0.6 mg/dL (0.55-1.02); Calcium 8.5 mg/dL (8.5-10.1); Chloride 93 mmol/L (98-107); Estimated GFR 87.36 (mL/min/1.73m2); Glucose 104 mg/dL (74-106); Potassium 4.3 mmol/L (3.5-5.1); Sodium 127 mmol/L (136-145)
[2023-03-10 18:23] LABS: Anion Gap 7.2 mmol/L (3-11); BUN 16 mg/dL (7-18); CO2 26.8 mmol/L (21.0-32.0); CREATININE 0.7 mg/dL (0.55-1.02); Calcium 8.3 mg/dL (8.5-10.1); Chloride 95 mmol/L (98-107); Estimated GFR 84.17 (mL/min/1.73m2); Glucose 142 mg/dL (74-106); Potassium 4.4 mmol/L (3.5-5.1); Sodium 129 mmol/L (136-145)
[2023-03-10] MEDS: Simvastatin 10 MG TAB 5 MG PO (19:56)
[2023-03-10] MEDS: Enoxaparin 30 MG/0.3 ML SYR SC (19:58)
[2023-03-10] MEDS: Normal Saline Flush 10 ML SYR IVP (20:06)
[2023-03-10] MEDS: Famotidine 20 MG TAB PO (22:06)
[2023-03-11] VITALS (14 sets, daily range): BP systolic 118–166; BP diastolic 61–96; PULSE 57–83; RESP 12–19; TEMP 36.2–37; O2SAT 95–99
[2023-03-11 00:29] LABS: Anion Gap 4.7 mmol/L (3-11); BUN 13 mg/dL (7-18); CO2 28.3 mmol/L (21.0-32.0); CREATININE 0.6 mg/dL (0.55-1.02); Calcium 8.4 mg/dL (8.5-10.1); Chloride 94 mmol/L (98-107); Estimated GFR 87.36 (mL/min/1.73m2); Glucose 105 mg/dL (74-106); Potassium 4.2 mmol/L (3.5-5.1); Sodium 127 mmol/L (136-145)
[2023-03-11] MEDS: Normal Saline 1,000 ML 150 ML IV (05:37)
[2023-03-11 06:26] LABS: Abs Immature Grans 0.01 10^3/uL (0.0-0.06); Absolute Basophil Count 0.03 10^3/uL (0.0-0.2); Absolute Lymphocyte Count 0.78 10^3/uL (1.2-3.4); Absolute Monocyte Count 0.74 10^3/uL (0.1-0.8); Basophils % 0.5; Eosinophils % 3.4; HCT 34.3 % (36.0-46.0); HGB 11.6 g/dL (11.2-15.7); Immature Grans % 0.2; Lymphocytes % 13.3; MCH 29.4 pg (27.0-33.0); MCHC 33.8 % (32.0-36.0); MCV 87 fL (80-95); MPV 9.9 fL (8.0-11.0); Monocytes % 12.6; Platelet Count 183 10^3/uL (130-400); RBC 3.94 10^6/uL (3.93-5.22); RDW 12.7 % (11.7-14.6); RDW-SD 40.5 fL; WBC 5.86 10^3/uL (4.4-10.8)
[2023-03-11 06:41] LABS: Anion Gap 5.2 mmol/L (3-11); BUN 10 mg/dL (7-18); CO2 28.8 mmol/L (21.0-32.0); CREATININE 0.6 mg/dL (0.55-1.02); Calcium 8.8 mg/dL (8.5-10.1); Chloride 97 mmol/L (98-107); Estimated GFR 87.36 (mL/min/1.73m2); Glucose 104 mg/dL (74-106); Magnesium 1.8 mg/dL (1.8-2.4); Potassium 3.9 mmol/L (3.5-5.1); Sodium 131 mmol/L (136-145)
--- NOTE | 2023-03-11 09:01 | PT.INIE ---
PT Notes Visit Reasons: Symptomatic Hyponatremia,Encephalopathy,Fall Inpatient Physical Therapy Evaluation Date: 03/11/23 Referring Doctor: Dr. Deras PT Orders: PT CONSULT: limited ability to ambulate Precautions: standard Patient Profile/Admitting Diagnosis: Patient admitted 03/09/23 after presenting to ER with weakness and fall at home. Admitted for medical management of acute hyponatremia due to SIADH, HTN, toxic metabolic encephalopathy. She had a recent admission here at [facility] 02/26/23 - 03/05/23. Social History/Home Situation: Lives with son and his family in a private home with 3 steps to enter without rails. Independent with all mobility ADL performance without any assistive device. No longer drives. No falls at home in the past year. Equipment Owned/DME: [facility] Subjective: Cathy states that she is feeling well. She reports that she walked to the chair with nursing, without any difficulty. She reports that she has a walker at home, which she does not use. She reports that she had a fall just prior to coming to ER, but prior to that, denies fall history. Objective: General Observation: Resting in chair, with IV in RUE. Monitored on telemetry. Mental Status: Alert and oriented. Struggles with word finding and identifying objects during session. Pain: denies ROM: Right Upper Extremity: WFL Left Upper Extremity: WFL Right Lower Extremity: WFL Left Lower Extremity: WFL Strength: Right Upper Extremity: Shoulder flexion 3/5 or greater. Biceps 4/5. Triceps 5/5. Dredge Pipe Installer is strong and equal. Left Upper Extremity: Shoulder flexion 3/5 or greater. Biceps 5/5. Triceps 5/5. Dredge Pipe Installer is strong and equal. Right Lower Extremity: Hip flexion 5/5. Quads 5/5. Ankle DF 5/5. Left Lower Extremity: Hip flexion 5/5. Quads 5/5. Ankle DF 5/5. Bed Mobility/Transfers: sit-stand: independent stand-sit: independent bed mobility: not assessed Gait: Ambulates 20'x1 with SBA, no AD, with minor path deviation and single LOB requiring UE support to wall. Transitioned to use of FWW, where she ambulates 60' wit SBA, cues for equipment management and significantly improved safety. Balance: Static Sitting: normal Dynamic Sitting: normal Static Standing: good Dynamic Standing: fair 4-Position Balance Test: 2/4 Small RAMANA: 10 seconds Partial Tandem: 10 seconds Full Tandem: 0 seconds Single Leg Stance: 0 seconds Special Tests: Mobility Limitations Standardized Measure [facility] AM-PAC 6 clicks Basic Mobility Inpatient Short Form: Raw Score: 22 CMS Score: 21% Informed Consent/Education: Patient instructed in purpose of PT consult and plan of care. Assessment: Patient is an 88 year old female referred to physical therapy services with the diagnosis of limited ability to ambulate during acute care hospitalization for acute hyponatremia. Patient presents with decreased balance, and will benefit from utilization of FWW for the time being. She currently demonstrates the following impairment level findings: 1. Decreased activity tolerance 2. decreased balance Impairments are contributing to the following functional limitations: 1. unsafe to ambulate without AD 2. decreased activity tolerance Patient is assessed as a Low 55739 complexity based on the following: History: as above Examination: functional limitations as above Presentation: evolving due to acute illness Decision Making: low complexity Goals: Goals X1 week 1. Supine-Sit : independent 2. Sit-Supine : independent 3. Sit-Stand : independent 4. Stand-Sit : independent 5. Bed-Chair : independent with FWW 6. Chair-Bed : independent with FWW 7. Gait : supervision with FWW x 150' 8. Stairs : able to ascend and descend 3 steps with bilat UE support Plan of Care/Treatment Plan: 1-2x/day, 7 days/week x 1 week. Plan of care has been reviewed with the [facility]IEU THERAPIST providing the service under Physical Therapy direction. Initiate Physical Therapy intervention for strengthening, bed mobility, transfers, gait, stairs, balance training, use of assistive device. DISCHARGE RECOMMENDATIONS: Home with services ( PT) TREATMENT CODE/TIME: 33488 ([id number]) Joan Nixon PT, DPT [facility] Please sign an return this page within 30 days if you agree with the above POC. Thank you! Physician Signature Date [facility] All Active Problems (Updated 03/10/23 @ 14:27 by Radha Deras MD) Discharge planning issues (Acute) DVT prophylaxis (Acute) Fall (Acute) Toxic metabolic encephalopathy (Acute) Acute hyponatremia (Acute) Complicated UTI (urinary tract infection) (Acute) Hyponatremia (Acute) SIADH (syndrome of inappropriate ADH production) (Chronic) Generalized weakness (Acute) Dehydration (Acute) Pancreatitis (Chronic) Hyponatremia (Acute) Constipation (Acute) Gastritis (Acute) Abdominal pain (Acute) Dysuria (Acute) Sore in nose (Acute) LUQ abdominal pain (Acute) Serrated adenoma of colon (Acute ~07/18/22) Neck pain on right side (Acute) Perforated diverticulum (Chronic) Dermatitis (Acute) Vaginitis, atrophic (Acute) Hyponatremia (Chronic) Multiple occasions last of which was 01/2021, 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 intestinal meta. or dysplasia Family history of GI malignancy Essential hypertension (01/14/13) Depressive disorder Atrophic vaginitis (08/19/11) Pt. states she is unsure [place]; rib fracture; lacerated liver; fx-pelvis; perf. intestine Family history of GI malignancy Surgical History KNEE SURGERY (~05/2012) Abdominal hysterectomy EGD - MAC (04/22/17) Colonoscopy - MAC (04/22/17) Colonoscopy - MAC (~02/2012) Cholecystectomy Bladder Surgery Bilateral salpingectomy with oophorectomy Arthroplasty of knee (05/27/12) LEFT - Pt denies knee replacement
[2023-03-11] MEDS: Multivitamin TAB 1 TAB PO (09:08)
[2023-03-11] MEDS: Metoprolol 25 MG TAB PO ×2 (09:08→20:04)
--- NOTE | 2023-03-11 09:28 | W.PM.PROGNOT ---
Date of Service Date of service: 03/11/23 Time of Service: 09:28 Assessment and Plan Assessment and plan (1) Acute hyponatremia: Status: Acute Assessment and plan: Appears to be in acute on chronic hyponatremia. Her baseline serum sodium is around 130. She is now up to 131 today. We will discontinue her normal saline infusion but continue free water restriction to less than 1200 mL a day. Nursing reports that she does not eat much she just drinks a lot of water. I think her chronic hyponatremia is from tea and toast type diet. There is no clinical indication for salt tablets particularly in the setting of SIADH with chronic hyponatremia. We will continue to monitor her electrolytes while she is hospitalized. Professional time spent interviewing and examining patient, discussion of goals of care with hospital team (care management, nursing and consulting professionals) was 30 minutes. (2) Toxic metabolic encephalopathy: Status: Acute Assessment and plan: Patient is certainly present with elevated blood pressures in the 160s to 170 systolic however this did not reach threshold for hypertensive urgency. She had no evidence of endorgan damage. I think her acute encephalopathy was secondary to severe hyponatremia has now corrected. Patient is tolerating metoprolol for treatment of her blood pressure we will keep her on metoprolol as her blood pressures have stabilized. She has had no cardiac arrhythmias therefore we will discontinue telemetry and plan for transfer out of the intensive care unit today. (3) SIADH (syndrome of inappropriate ADH production): Status: Chronic Assessment and plan: As above (4) Generalized weakness: Status: Acute Assessment and plan: Reconsult physical therapy to evaluate her gait strength and ambulation. (5) Fall: Status: Acute Assessment and plan: Consult physical therapy to evaluate her gait strength and ambulation. Consider palliative care consult to assist patient with goals of care particularly in light of the fact that she has had 5 admissions in the last 2 months. The last couple admissions have been for recurrent hyponatremia. Qualifiers: Encounter type: subsequent encounter Qualified Code(s): W19.XXXD - Unspecified fall, subsequent encounter (6) DVT prophylaxis: Status: Acute Assessment and plan: SC enoxaparin (7) Discharge planning issues: Status: Acute Assessment and plan: DNR/DNI No longer meeting criteria for ICU stay. Will plan for transfer to the medical/surgical floor. Will discontinue telemetry monitoring as she has had no arrhythmias. Will consult palliative care to assist patient with goals of care. Subjective Subjective Interval history since last seen: Patient is feeling markedly better she has no acute complaints. She is still mildly confused about the date. She thought it was New Year's rather than but it is 2023 rather than 2022. Otherwise she reorients rather easily. She knew she was in [place] at [facility]. She sitting up in her chair washing up having just completed her breakfast. Exam Narrative Exam Narrative: Petite elderly female who is alert and oriented person place and and to time with some reorientation Lungs are clear to auscultation Heart is regular rate and rhythm, without murmur Abdomen soft nontender. Nursing reports patient has had a bowel movement. Extremities without peripheral cyanosis or edema Objective Last Vital Signs Temp 36.9 C 03/11/23 07:43 Pulse 71 03/11/23 07:43 Resp 14 03/11/23 07:43 BP 118/96 H 03/11/23 07:43 Pulse Ox 99 03/11/23 07:43 Laboratory Results - last 24 hr 03/10/23 03/10/23 03/11/23 11:55 18:06 00:09 WBC RBC Hgb Hct MCV MCH MCHC RDW Plt Count MPV Immature Gran % Neutrophils % Lymphocytes % Monocytes % Eosinophils % Basophils % Nucleated RBC % Absolute Neutrophils Absolute Lymphocytes Absolute Monocytes Absolute Eosinophils Absolute Basophils Sodium 127 L 129 L 127 L Potassium 4.3 4.4 4.2 Chloride 93 L 95 L 94 L Carbon Dioxide 27.5 26.8 28.3 Anion Gap 6.5 7.2 4.7 BUN 15 16 13 Creatinine 0.6 0.7 0.6 Est GFR (CKD-EPI 2020) 87.36 84.17 87.36 Glucose 104 142 H 105 Calcium 8.5 8.3 L 8.4 L Magnesium 03/11/23 05:48 WBC 5.86 RBC 3.94 Hgb 11.6 Hct 34.3 L MCV 87 MCH 29.4 MCHC 33.8 RDW 12.7 Plt Count 183 MPV 9.9 Immature Gran % 0.2 Neutrophils % 70.0 Lymphocytes % 13.3 Monocytes % 12.6 Eosinophils % 3.4 Basophils % 0.5 Nucleated RBC % 0.0 Absolute Neutrophils 4.10 Absolute Lymphocytes 0.78 L Absolute Monocytes 0.74 Absolute Eosinophils 0.20 Absolute Basophils 0.03 Sodium 131 L Potassium 3.9 Chloride 97 L Carbon Dioxide 28.8 Anion Gap 5.2 BUN 10 Creatinine 0.6 Est GFR (CKD-EPI 2020) 87.36 Glucose 104 Calcium 8.8 Magnesium 1.8 Time Spent with Patient Time Spent with Patient: 25-34 minutes Time was spent: preparing to see the patient(eg.review tests), ordering medications,tests, procedures, referring, communicating with other health home child care provider, indepentently interpreting results, counseling the patient and care coordination
[2023-03-11] MEDS: Fosfomycin Tromethamine 3 GM PACKET PO (10:10)
--- NOTE | 2023-03-11 10:57 | CHAPLAIN ---
Cathy was visiting with two friends/family members when I stopped in. She was up in the chair. I will try to visit again later.
--- NOTE | 2023-03-11 11:01 | INITIAL_ITS ---
Date of service: 03/11/23 Time of Service: 11:01 Care Management Initial Assmt Initial Assessment REASON FOR HOSPITALIZATION:: Symptomatic hyponatremia, encephalopathy, fall PREVIOUS FUNCTIONAL STATUS/SOCIAL/FAMILY SUPPORTS:: Cathy lives with her son in his single family home in [place]. She also has her own home nearby but has been staying with him for a few years, since after a hospitalization she did not feel safe living at home, alone. Cathy has 4 other children, all daughters, two of whom live in the area and who are helpful when needed. Cathy stated that she is independent with ADLs, but when she is in pain she reports that she has trouble understanding things. CURRENT FUNCTIONAL STATUS:: Cathy was sleeping when CM attempted to meet with her; her RN asked that CM not wake her. Per report, she was very confused when she arrived, and today she appears to be more clear. Palliative care was consulted and will likely meet with her later this week, depending on availability. PT evaluated her today and recommends HH PT. CM will continue to follow. ADVANCE DIRECTIVES:: COLST on file; Christina (daughter) listed as HCA. Has patient been provided with info about the portal/API?: Yes Did the patient sign up for the portal?: No CODE STATUS:: DNR/DNI INSURANCE COVERAGE / FINANCIAL ISSUES:: MCR. [employer] Supplemental. CURRENT HOME/COMMUNITY SERVICES/EQUIPMENT:: FWW. HH services, ordered upon discharge on 03/05/23. PRIMARY CARE PHYSICIAN:: Jason Busby POTENTIAL DISCHARGE NEEDS:: Evaluations for further needs, follow up appointments. PATIENT/FAMILY EDUCATION NEEDS:: Review discharge instructions and limitations, discussion of self care needs including ask me three ANTICIPATED BARRIERS TO DISCHARGE:: None identified. TRANSPORTATION:: Via private vehicle by family. PLAN:: Anticipate Cathy will return home with a resumption of HH services. Her son will drive her home via private vehicle. She will follow up with her PCP and discharge plan of care. CM will continue to follow. PFSH All Active Problems (Updated 03/11/23 @ 09:51 by Rolan Jiménez MD) Discharge planning issues (Acute) DVT prophylaxis (Acute) Fall (Acute) Toxic metabolic encephalopathy (Acute) Acute hyponatremia (Acute) Complicated UTI (urinary tract infection) (Acute) Hyponatremia (Acute) SIADH (syndrome of inappropriate ADH production) (Chronic) Generalized weakness (Acute) Dehydration (Acute) Pancreatitis (Chronic) Hyponatremia (Acute) Constipation (Acute) Gastritis (Acute) Abdominal pain (Acute) Dysuria (Acute) Sore in nose (Acute) LUQ abdominal pain (Acute) Serrated adenoma of colon (Acute ~07/18/22) Neck pain on right side (Acute) Perforated diverticulum (Chronic) Dermatitis (Acute) Vaginitis, atrophic (Acute) Hyponatremia (Chronic) Multiple occasions last of which was 01/2021, 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 Elevated urine sodium with episode of hyponatremia evaluated at 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 intestinal meta. or dysplasia Family history of GI malignancy Essential hypertension (01/14/13) Depressive disorder Atrophic vaginitis (08/19/11) Pt. states she is unsure [place]; rib fracture; lacerated liver; fx-pelvis; perf. intestine Family history of GI malignancy Surgical History KNEE SURGERY (~05/2012) Abdominal hysterectomy EGD - MAC (04/22/17) Colonoscopy - MAC (04/22/17) Colonoscopy - MAC (~02/2012) Cholecystectomy Bladder Surgery Bilateral salpingectomy with oophorectomy Arthroplasty of knee (05/27/12) LEFT - Pt denies knee replacement Family History Mother , AGE 84 Heart disease Father , AGE 87 Stroke Heart disease Cancer Sister Stroke Brother Alcohol abuse Cancer Brother Cancer of kidney Son Hyperlipidemia Pulmonary disease Daughter Thyroid disease Daughter Cancer s/p hysterectomy Daughter No problems noted. Daughter No problems noted. Brother No problems noted. Maternal Grandfather No problems noted. Paternal Grandfather No problems noted. Maternal Grandmother No problems noted. Paternal Grandfather No problems noted. Social History Smoking/Tobacco Use Status: Former Tobacco Use tobacco type: cigarettes Quit Date: 03/17/97 Second Hand Exposure: Yes Smoking risk assessment performed?: Yes Alcohol Intake: never Drug use: Never Substance use type: does not use Housing: house Communication Needs: Hard of Hearing Do you need help understanding health information?: Often Pets and animals: No Sexually active: No Do you think of yourself as: straight/heterosexual Current gender identity: female What is your relationship status?: How often do you talk on the phone with friends or family?: decline to answer How often do you attend advent or anabaptist services?: decline to answer Do you belong to any clubs or organized social groups?: decline to answer Panel score (0-1 are the most socially isolated patients): 0 What type of physical activity do you participate in: walking Carri/Muslim: No preference Special carri needs: No Drive intox 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 commercial front load driver: No Do you feel safe at home: Yes Do you feel safe in your relationship?: Yes
--- NOTE | 2023-03-11 12:35 | W.NUTRFU ---
Date of service: 03/11/23 Time of Service: 12:10 Nutrition Note NOTE: received consult regarding pt need for education on free water restriction and dietary guidance. Pt with repeat admission for hyponatremia with a long history of GI concerns. I have met with her and her in the outpatient setting this last December to help with menu planning around intolerances to many foods due to hx of gastritis, GERD with espophagitis, Barretts esophagus. Her weight has been stable over the last year, ranging 48-54kg *currently 50.2). Fair to good po intake documented and upon visit today had taken 100% of her lunch meal. She has her son and another visitor and I reviewed the concern with drinking free water too much at home. Son consistently seems frustrated that she will not take other fluids much than water. She won't take acid beverages like v8 juice. Won't drink sports beverages either. Suggested bone broth (For extra protein plus sodium), some milk and evern supplemental ONS's like ensure/boost for the extra protein plus elecrolytes. Also explained not diet modification needed as long as she is trying to eat at least 3 meals per day and includes foods with sodium (which many of her choice she tolerates have). Son will continue to try to keep free water intake to minimum (suggested no more than 8oz of water per day). encouraged sodium rich gravies, bread products like crackers and even adding a small amount of salt (1/8tsp or les) to the water that she does drink within her restriction. Time Spent in Nutritional Counseling and Treatment: 15 minutes
--- NOTE | 2023-03-11 13:30 | DI.US_ITS ---
APPROVED REPORT EXAM: Comprehensive 2D, Doppler, and color-flow Echocardiogram Patient Location: In-Patient Room/Bed: HIE093 Button Tufter: Ayleen Durham RDCS (AE) Indications: EKG changes Other Information Study Quality: Fair. Technically limited study due to body habitus, exam done supine bedside. Conclusion 1. Normal chamber sizes. 2. Mild aortic sclerosis, otherwise normal valves anatomically. Trace to mild MR,AI. 3.Normal LV systolic function,EF 60-65%. No wall motion abnormality. 4. Grade 2 diastolic dysfunction. Wall motion Left Ventricle The left ventricle is normal size. The overall left ventricular systolic function appears normal. The re is normal left ventricular wall thickness. There is normal LV segmental wall motion. There is no v entricular septal defect visualized. LVEF is 52%. Right Ventricle Right ventricle is grossly normal in size. Right ventricular systolic function is grossly normal. Atria The left atrium size is normal. The right atrium size is normal. The interatrial septum is intact wit h no evidence for an atrial septal defect. Aortic Valve The Aortic valve is sclerotic. Aortic valve is trileaflet. There is no aortic valvular stenosis. Trac e to mild aortic regurgitation. Mitral Valve The mitral valve is normal in structure. No evidence of mitral valve stenosis. Trace to mild mitral r egurgitation. Tricuspid Valve The tricuspid valve is normal in structure. There is no tricuspid valve stenosis. Mild tricuspid regu rgitation. Pulmonic Valve The pulmonary valve is normal in structure. There is no pulmonic valvular stenosis. Mild pulmonic reg urgitation. Great Vessels The aortic root is normal in size. The ascending aorta is mildly dilated. The IVC collapses <50% with inspiration. Pericardium There is no pericardial effusion. 2D Dimensions IVSD d PLAX 0.91 cm F: 0.6-1.0 Ao Root d 2.82 cm F: 2.7 - 3.3 LVPW d PLAX 0.86 cm F: 0.6 - 1.0 Ao Asc Diam d 3.22 cm F: 2.3 - 3.1 LVID d PLAX 3.23 cm F: 3.8 - 5.2 LVDs 2.41 cm F: 2.2 - 3.5 LV EF Teichholz 51.2 % FS 25.25 % LV EDV (Teich) 41.8 mL LV ESV (Teich) 20.4 mL M-Mode TAPSE 2.15 cm (M/F) >1.7 Auto EF LV EDV A4C 63.0 mL LV EDV A2C 76.5 mL LV EDV BP 70.7 mL LV ESV A4C 32.1 mL LV ESV A2C 35.9 mL LV ESV BP 33.6 mL LVEF(%) A4C 49.0 % LVEF(%) A2C 53.0 % LVEF(%) BP 52.5 % LV SV A4C 30.9 ml LV SV A2C 40.6 ml LV SV BP 37.1 ml LV CO A4C 1.9 L/min LV CO A2C 2.5 L/min LV CO BP 2.2 L/min HR A4C 61.76 BPM HR A2C 62.72 BPM LV EDV Index (BP) LV Diastology MV E' medial 0.086 (>0.07 m/s) MV E Vmax 0.84 (0.4-1.3 m/s) MV E/E' MED 9.72 (<14) MV A Vmax 0.70 (0.4-1.3 m/s) MV E' lateral 0.074 (>0.1 m/s) E/A Ratio 1.2 MV E/E' LAT 11.24 (<14) MV E' Average 0.080 m/s MV E/E'(average) 10.43 Aortic Valve AoV Vmax 1.28 m/s LVOT Vmax 0.98 m/s AoV Peak Grad 32.9 mmHg LVOT Peak Grad 3.8 mmHg AoV Area (Vmax) 2.48 cm2 LVOT VTI 0.271 m AoV VTI 0.355 m LVOT Mean Grad 2.1 mmHg AoV Mean Freddy. 0.90 m/s LVOT SV 88.76 mL AoV Mean Grad 3.7 mmHg LVOT Diam s 2.00 cm AoV Area (VTI) 2.50 cm2 AV Regurg Peak Gr. 59.25 mmHg Velocity Ratio 0.77 AR Decel Ramsey 2.2m/sec2 AR DT 1749 msec AR PHT 507 msec AR Vmax 3.85 m/s Mitral Valve MV DT 172 (160-240 msec) MV Vmax TIPS 0.89 m/s MV Mean Grad 1.2 (<2mmHg) MV VTI 0.309 m Pulmonary Valve PV Vmax 0.91 (0.5-1.5 m/s) RVOT Vmax 0.65 m/s PV Peak Grad 3.3 mmHg RVOT Peak Gr. 1.7 mmHg PV Mean Freddy 0.58 m/s RVOT VTI 0.176 m PV Mean Grad 1.6 mmHg RVOT Mean Gr. 1.0 mmHg Tricuspid Valve RA Pressure 8.00 mmHg TR Vmax 3.06 m/s TV S' 0.14 m/s TR Peak Grad 37.4 mmHg RVSP (TR) 45.4 mmHg
--- NOTE | 2023-03-11 14:13 | PHA.REVIEW2 ---
Pharmacy Admission Review Admission Clinical Review Admission Pharmacy Review: Discharge planning issues (Acute) DVT prophylaxis (Acute) Fall (Acute) Toxic metabolic encephalopathy (Acute) Acute hyponatremia (Acute) Generalized weakness (Acute) ciprofloxacin [From Cipro] Allergy (Intermediate, Verified 03/09/23 14:34) Lips and face burn, feels shaky, arm tingly codeine Adverse Reaction (Intermediate, Verified 03/09/23 14:34) Dizziness/Lightheade lovastatin Adverse Reaction (Intermediate, Verified 03/09/23 14:34) myalgias oxycodone Adverse Reaction (Intermediate, Verified 03/09/23 14:34) NAUSEA, GI UPSET azithromycin Adverse Reaction (Verified 03/09/23 14:34) cramping, anorexia doxycycline Adverse Reaction (Verified 03/09/23 14:34) Nausea, Vomiting hydrocodone Adverse Reaction (Verified 03/09/23 14:34) unknown Resuscitation Status DNR/DNI Height 5 ft Weight 50.2 kg Pharmacy Admission Review Renal Dosing Renal Dosing: BUN 10 mg/dL (7-18) 03/11/23 05:48 Creatinine 0.6 mg/dL (0.55-1.02) 03/11/23 05:48 Medications needing adjustments: Intervened (CrCl 31.96 mL/min) List of meds needing interventions: Reached out to provider about famotidine dose. Decreased dose to 10mg daily based on kidney function. Anticoagulation Anticoagulation: Hgb 11.6 g/dL (11.2-15.7) 03/11/23 05:48 Hct 34.3 % (36.0-46.0) L 03/11/23 05:48 Plt Count 183 10^3/uL (130-400) 03/11/23 05:48 Creatinine 0.6 mg/dL (0.55-1.02) 03/11/23 05:48 DVT Prophylaxis: Reviewed Medications: Enoxaparin (30mg q24h) Relevant Labs Relevant Labs: Sodium 131 mmol/L (136-145) L 03/11/23 05:48 Potassium 3.9 mmol/L (3.5-5.1) 03/11/23 05:48 Chloride 97 mmol/L (98-107) L 03/11/23 05:48 Magnesium 1.8 mg/dL (1.8-2.4) 03/11/23 05:48 Electrolytes, C-Reactive P, ESR: Reviewed (Per progress note, patients baseline Na is 130. Currently at 131. ) Cardiac Review Cardiac Review: Troponin I < 50 ng/L (<or=60) 03/09/23 16:48 BP, HR, EF%: Reviewed (BP and HR WNL) QTc Review QTc: Reviewed (QTc 401 on 03/09/23) IV to PO Switch IV Medications: Reviewed Home Meds Home Med List reviewed: Reviewed Current Meds Current Medication Order Review: Reviewed
--- NOTE | 2023-03-11 15:02 | PTTR_ITS ---
Date of service: 03/11/23 Time of Service: 14:08 PT Notes Visit Reasons: Symptomatic Hyponatremia,Encephalopathy,Fall Inpatient Physical Therapy Treatment Note [facility] Date: 03/11/23 PRECAUTIONS: Fall, standard, activity as tolerated. [place]. SUBJECTIVE: Patient reports feeing a bit better today. OBJECTIVE: Sitting up in bedside chair, working on a word search. Agreeable to therapy. ? PAIN: none reported VITALS: monitored by nursing staff ? BED MOBILITY/TRANSFERS? Rolling L/R: not assessed Supine-sit: not assessed ? Sit-supine: not assessed ? Sit-stand: SBA ? Stand-sit: SBA ? Bed-Chair: SBA ? Chair-bed: SBA ? Therapeutic Exercises ([id number]): Direct one-on-one instruction in therapeutic exercises to develop strength, endurance, range of motion and flexibility. Ambulation ? Assistive Device: FWW ? Weight bearing: full Assist: SBA, wheelchair follow ? Distance:? 350 feet ? Deviation: gait largely unremarkable, except for some minor side to side deviation from a straight course. Patient reports that she does not use a walker at home, choosing instead to hold the hand of another person, that way if I fall, they'll fall with me because I won't let go! ? Provided skilled instruction in proper exercise performance Provided skilled manual cues to facilitate proper muscle recruitment and/or form. ASSESSMENT:? Patient tolerates therapy well, no report of pain nor dyspnea. PLAN: Continue global strengthening per plan of care until patient is medically cleared for discharge. TREATMENT CODE/TIME: 16 minutes beginning at 14:08
[2023-03-11 18:30] LABS: Sodium, Urine 60 mmol/L
[2023-03-11] MEDS: Simvastatin 10 MG TAB 5 MG PO (20:03)
[2023-03-11] MEDS: Normal Saline Flush 10 ML SYR IVP (20:03)
[2023-03-11] MEDS: Enoxaparin 30 MG/0.3 ML SYR SC (20:03)
[2023-03-11] MEDS: Famotidine 20 MG TAB 10 MG PO (21:23)
[2023-03-12 06:58] LABS: Anion Gap 7.6 mmol/L (3-11); BUN 21 mg/dL (7-18); CO2 28.4 mmol/L (21.0-32.0); CREATININE 0.7 mg/dL (0.55-1.02); Calcium 8.9 mg/dL (8.5-10.1); Chloride 96 mmol/L (98-107); Estimated GFR 84.17 (mL/min/1.73m2); Glucose 111 mg/dL (74-106); Potassium 4.6 mmol/L (3.5-5.1); Sodium 132 mmol/L (136-145)
[2023-03-12 07:11] VITALS: BP 139/71; PULSE 75; RESP 18; TEMP 36.4; O2SAT 96
[2023-03-12] MEDS: Metoprolol 25 MG TAB PO ×2 (08:42→19:59)
[2023-03-12] MEDS: Ferrous Sulfate 325 MG TAB PO (08:42)
[2023-03-12] MEDS: Multivitamin TAB 1 TAB PO (08:42)
[2023-03-12] MEDS: Refresh PLUS Eye Drops 0.4ml OP (08:43)
[2023-03-12] MEDS: Normal Saline Flush 10 ML SYR IVP ×2 (08:43→19:59)
--- NOTE | 2023-03-12 10:30 | PT.INTREAT ---
Date of service: 03/12/23 Time of Service: 10:13 PT Notes Visit Reasons: Symptomatic Hyponatremia,Encephalopathy,Fall Inpatient Physical Therapy Treatment Note [facility] Date: 03/12/23 PRECAUTIONS: Fall, standard, activity as tolerated. SUBJECTIVE: Patient reports feeling ok, states that her son is coming to pick her up and take her home. Enthusiastic about getting home. AFTERNOON: Patient states that she can't go home today, reports that she will be going to rehab instead. Reports being depressed, has not been a very good girl, hasn't been eating enough at home. Reports that she has always been a fussy eater. OBJECTIVE: Patient is sitting up in bedside chair, [place] alarm in place and active, agreeable to therapy. ? PAIN: none reported. VITALS: monitored by nursing staff. ? ? ? BED MOBILITY/TRANSFERS? Rolling L/R: not assessed Supine-sit: not assessed ? Sit-supine: not assessed ? Sit-stand: SBA ? Stand-sit: SBA ? Bed-Chair: SBA ? Chair-bed: SBA Provided skilled cues and instruction on performance and technique throughout. Gait Training ([id number]): Direct one-on-one instruction and skilled instruction in: [] employing an assistive device [] modified weight-bearing status [x] movement sequencing [x] turning and movement with proper form [x] Provided verbal cues for equipment management and technique [] Provided instruction in gait pattern [] Patient education regarding pacing and breathing techniques to maximize activity tolerance? GAIT? Assistive Device: FWW? Weight bearing: full Assist: SBA ? Distance:? 600 feet ? Deviation: Patient's gait is unremarkable except for ~30 feet where she took excessively long steps and could not articulate why. Also contacted an obstacle in the hallway x1 with walker. ? STAIRS: Ascends and descends 2x six inch steps and 3x four inch steps with bilateral handrails and SBA. ? Therapeutic Exercises ([id number]): Direct one-on-one instruction in therapeutic exercises to develop strength, endurance, range of motion and flexibility. Ambulation ? Assistive Device: hand hold assist? Weight bearing: full Assist: hand hold assist? Distance:? 500 feet? Deviation: gait largely unremarkable. Patient has reported that while she doesn't use a walker at home, she does always have someone with her and she holds onto them. Gait is steady, straight forward course, no wobbling when turning. ? Provided skilled instruction in proper exercise performance Provided skilled manual cues to facilitate proper muscle recruitment and/or form. ASSESSMENT:? Patient tolerates therapy well, no dyspnea, no LOB, no report of pain. Strongly encourage patient to continue using walker at home in order to decrease risk of falling. AFTERNOON: patient's son reports that as long as they keep her salt levels right patient appears to be back to baseline. PLAN: Continue global strengthening per plan of care until patient is medically cleared for discharge. TREATMENT CODE/TIME: 14 minutes beginning at 10:13 and 13 minutes beginning at 14:53 for a total of 27 minutes today.
[2023-03-12 10:35] LABS: Lyme Ab w Rflx to Lyme Confirm Negative (Negative)
--- NOTE | 2023-03-12 15:11 | W.PM.PROGNOT ---
Date of Service Date of service: 03/12/23 Time of Service: 15:11 Assessment and Plan Assessment and plan (1) Acute hyponatremia: Status: Acute Assessment and plan: Appears to be in acute on chronic hyponatremia. Her baseline serum sodium is around 130. She is now up to 132 today. stable off normal saline infusion but continue free water restriction to less than 1200 mL a day. Nursing reports that she does not eat much she just drinks a lot of water. Its thought her chronic hyponatremia is from tea and toast type diet. Will initiate salt tablets in the setting of SIADH with chronic hyponatremia. We will continue to monitor her electrolytes while she is hospitalized. 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 (5) Fall: Status: Acute Assessment and plan: physical therapy for gait strength and ambulation. Consider palliative care consult to assist patient with goals of care particularly in light of the fact that she has had 5 admissions in the last 2 months. The last couple admissions have been for recurrent hyponatremia. Qualifiers: Encounter type: subsequent encounter Qualified Code(s): W19.XXXD - Unspecified fall, subsequent encounter (6) DVT prophylaxis: Status: Acute Assessment and plan: SC enoxaparin (7) Discharge planning issues: Status: Acute Assessment and plan: DNR/DNI consider palliative care to assist patient with goals of care now agreeable to skilled rehab discussed with Dr Jiménez. Subjective Subjective Patient reports: no new complaints, feels better, tolerating liquids well (chronic poor po intake) and afebrile; denies nausea or vomiting Exam Narrative Exam Narrative: Elderly female frail stated age no acute distress, Head is atraumatic oral mucosa dry Neck is supple there is no JVD Cardiovascular regular rate and rhythm no peripheral edema Respirations are even and unlabored breath sounds are clear bilaterally with diminished bases Abdomen is flat soft, reports it is tender with palpation, positive bowel sounds Her extremities are without edema moves all extremities Objective Last Vital Signs Temp 36.4 C L 03/12/23 07:11 Pulse 75 03/12/23 07:11 Resp 18 03/12/23 07:11 BP 139/71 03/12/23 07:11 Pulse Ox 96 03/12/23 07:11 Laboratory Results - last 24 hr 03/09/23 03/11/23 03/12/23 15:03 16:20 06:00 Sodium 132 L Potassium 4.6 Chloride 96 L Carbon Dioxide 28.4 Anion Gap 7.6 BUN 21 H Creatinine 0.7 Est GFR (CKD-EPI 2020) 84.17 Glucose 111 H Calcium 8.9 Ur Random Sodium 60 Lyme Disease Antibody Negative Time Spent with Patient Time Spent with Patient: 25-34 minutes Time was spent: preparing to see the patient(eg.review tests), obtaining and/or reviewing separately otained hiistory, ordering medications,tests, procedures, indepentently interpreting results, counseling the patient and care coordination
[2023-03-12 15:19] VITALS: BP 144/79; PULSE 80; RESP 16; TEMP 36.6; O2SAT 97
[2023-03-12 16:22] LABS: Bilirubin Negative (Negative); Blood Negative (Negative); Clarity Clear (Clear); Glucose Negative (Negative); Ketones Trace mg/dL (Negative); Leukocyte Esterase Negative (Negative); Nitrite Negative (Negative); Specific Gravity 1.025 (1.005-1.025); Urobilinogen 0.2 mg/dL (Up to 0.2)
[2023-03-12 16:35] LABS: Creatinine,Urine 89.33 mg/dL; Sodium, Urine 110 mmol/L
[2023-03-12] MEDS: Salt Supplement (BUFFERED) TAB 1 TAB PO (17:01)
[2023-03-12 17:50] LABS: Osmolality Serum 274 mOsm/kg (275-295)
--- NOTE | 2023-03-12 17:57 | CMPROGNOTE_ITS ---
Date of service: 03/12/23 Time of Service: 17:57 Care Management Progress Note Progress Note Text Progress Note Text: S/O:Cathy was sitting up in a chair visiting with her family when CM met with her. She was alert and oriented and participated in the conversation although she had trouble hearing some of what was said. Cathy was admitted with hyponatremia, a chronic condition for which she was recently hospitalized. Her sodium has been corrected and is at 132 which is better than her baseline. Cathy has been reluctant to go to rehab in the past but today agreed to go to short term rehab to improve her strength and endurance. At the family's request, referrals were sent to [facility], the [facility]. Follow up phone calls will be made tomorrow by CM. If no bed offers are received she will likely be discharged home with the ability to transition to a SNF from home should she need to. Per PT, she would be safe for discharge home with home health PT. A: Cathy is an 88 year old woman admitted on 03/09/23 with hyponatremia. P:Cathy will either discharge home with home health services or transfer to a SNF for short term rehab. Referrals were sent today to [facility], the [facility] . As Cathy is nearing discharge readiness, she may discharge home and pursue placement after discharge. CM will continue to support Cathy and her discharge planning needs.
[2023-03-12] MEDS: Enoxaparin 30 MG/0.3 ML SYR SC (19:58)
[2023-03-12] MEDS: Simvastatin 10 MG TAB 5 MG PO (19:59)
[2023-03-12] MEDS: Famotidine 20 MG TAB 10 MG PO (21:42)
[2023-03-12 23:50] VITALS: BP 134/74; PULSE 72; RESP 19; TEMP 36.7; O2SAT 96
[2023-03-13 07:24] VITALS: BP 129/70; PULSE 77; RESP 16; TEMP 36.3; O2SAT 95
[2023-03-13 07:58] LABS: Abs Immature Grans 0.02 10^3/uL (0.0-0.06); Absolute Basophil Count 0.03 10^3/uL (0.0-0.2); Absolute Lymphocyte Count 1.03 10^3/uL (1.2-3.4); Absolute Monocyte Count 0.59 10^3/uL (0.1-0.8); Absolute Neutrophil Count 4.95 10^3/uL (1.2-6.7); Basophils % 0.4; Eosinophils % 1.5; HCT 35.4 % (36.0-46.0); HGB 11.8 g/dL (11.2-15.7); Immature Grans % 0.3; Lymphocytes % 15.3; MCH 29.4 pg (27.0-33.0); MCHC 33.3 % (32.0-36.0); MCV 88 fL (80-95); MPV 9.5 fL (8.0-11.0); Monocytes % 8.8; Neutrophils % 73.7; Platelet Count 230 10^3/uL (130-400); RBC 4.01 10^6/uL (3.93-5.22); RDW 13.1 % (11.7-14.6); RDW-SD 42.5 fL; WBC 6.72 10^3/uL (4.4-10.8)
--- NOTE | 2023-03-13 09:06 | PDOC.CMPRO ---
Date of service: 03/13/23 Time of Service: 09:06 Care Management Progress Note Progress Note Text Progress Note Text: S/O:Cathy was sitting up in a chair visiting with her son when CM met with her. She had informed staff that she is feeling a little down today. When CM spoke to her she seemed anxious about her discharge plans. When asked, she confirmed that she was still willing to go to rehab and wanted to know how soon it could be. CM indicated that as soon as an offer is received, she would be told. A short while later ALESSANDRA received confirmation that a bed offer was received from [facility] for tomorrow. CM shared the information with Cathy and her son and both seemed satisfied with the plan. A: Cathy is an 88 year old woman admitted on 03/09/23 with hyponatremia. P:Cathy will either discharge home with home health services or transfer to a SNF for short term rehab. Referrals were sent today to [facility], [facility], [facility] and [facility] . As Cathy is nearing discharge readiness, she may discharge home and pursue placement after discharge. CM will continue to support Cathy and her discharge planning needs.
[2023-03-13] MEDS: Refresh PLUS Eye Drops 0.4ml OP (09:44)
[2023-03-13] MEDS: Salt Supplement (BUFFERED) TAB 1 TAB PO ×3 (09:44→17:40)
[2023-03-13] MEDS: Torsemide 10 MG TAB PO (09:45)
[2023-03-13] MEDS: Metoprolol 25 MG TAB PO ×2 (09:45→20:52)
[2023-03-13] MEDS: Multivitamin TAB 1 TAB PO (09:45)
[2023-03-13] MEDS: Normal Saline Flush 10 ML SYR IVP ×2 (09:46→20:53)
--- NOTE | 2023-03-13 10:03 | PT.INTREAT ---
Date of service: 03/13/23 Time of Service: 09:05 PT Notes Visit Reasons: Symptomatic Hyponatremia,Encephalopathy,Fall Inpatient Physical Therapy Treatment Note [facility] Date: 03/13/23 PRECAUTIONS: Fall, standard, activity as tolerated. SUBJECTIVE: Patient reports feeling depressed, weepy and sorry for herself. Does not want to be in the hospital anymore. Hates the chair alarm, wants to be able to walk around by herself. RN Nancy alerted about DRE alarm, she states that patient's orientation waxes and wanes and it is not safe at this time to remove chair alarm. CM Heydi alerted to patient's mood changes. OBJECTIVE: Sitting up in chair, DRE alarm in place and active. Agreeable to therapy. ? PAIN: none reported VITALS: monitored by nursing staff? BED MOBILITY/TRANSFERS? Rolling L/R: not assessed Supine-sit: not assessed ? Sit-supine: not assessed ? Sit-stand: SBA ? Stand-sit: SBA ? Bed-Chair: SBA ? Chair-bed: SBA Provided skilled cues and instruction on performance and technique throughout. ? Therapeutic Exercises ([id number]): Direct one-on-one instruction in therapeutic exercises to develop strength, endurance, range of motion and flexibility. Ambulation ? Assistive Device: FWW ? Weight bearing: full Assist: SBA ? Distance:? 700 feet ? Deviation: Gait with AD largely unremarkable. Walks swiftly. No LOB, no SOB, no course deviation. ? Provided skilled instruction in proper exercise performance Provided skilled manual cues to facilitate proper muscle recruitment and/or form. ? Exercises/techniques: ? [] ASSESSMENT:? Patient tolerates therapy well, returns to chair at end of treatment session. Dre alarm in place, call lang within easy reach. PLAN: Per DPT Alyx Reyes, patient to be seen 1x per day for higher level balance training. Continue global strengthening and activity tolerance training until patient is medically cleared for discharge and obtains safe discharge plan. TREATMENT CODE/TIME: 22 minutes beginning at 9:05
--- NOTE | 2023-03-13 14:10 | PGE_ITS ---
Date of Service Date of service: 03/13/23 Time of Service: 14:10 Assessment and Plan Assessment and plan (1) Acute hyponatremia: Status: Acute Assessment and plan: started on salt tablets and torsemide in the setting of SIADH with chronic hyponatremia. We will continue to monitor her electrolytes while she is hospitalized. continue fluid restriction. 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 (5) Fall: Status: Acute Assessment and plan: physical therapy for gait strength and ambulation. referred to skilled rehabilitation, awaiting bed acceptance Qualifiers: Encounter type: subsequent encounter Qualified Code(s): W19.XXXD - Unspecified fall, subsequent encounter (6) DVT prophylaxis: Status: Acute Assessment and plan: SC enoxaparin (7) Discharge planning issues: Status: Acute Assessment and plan: DNR/DNI consider palliative care to assist patient with goals of care now agreeable to skilled rehab, bed acceptance pending. discussed with Dr Jiménez. Subjective Subjective Patient reports: no new complaints, feels better, tolerating liquids well, tolerating a regular diet and afebrile; denies shortness of breath Exam Narrative Exam Narrative: Elderly female frail stated age no acute distress, Head is atraumatic oral mucosa dry Neck is supple there is no JVD Cardiovascular regular rate and rhythm no peripheral edema Respirations are even and unlabored breath sounds are clear bilaterally with diminished bases Abdomen is flat soft, reports it is tender with palpation, positive bowel sounds Her extremities are without edema moves all extremities Objective Last Vital Signs Temp 36.3 C L 03/13/23 07:24 Pulse 77 03/13/23 07:24 Resp 16 03/13/23 07:24 BP 129/70 03/13/23 07:24 Pulse Ox 95 03/13/23 07:24 Laboratory Results - last 24 hr 03/12/23 03/12/23 03/13/23 06:00 16:09 07:51 WBC 6.72 RBC 4.01 Hgb 11.8 Hct 35.4 L MCV 88 MCH 29.4 MCHC 33.3 RDW 13.1 Plt Count 230 MPV 9.5 Immature Gran % 0.3 Neutrophils % 73.7 Lymphocytes % 15.3 Monocytes % 8.8 Eosinophils % 1.5 Basophils % 0.4 Nucleated RBC % 0.0 Absolute Neutrophils 4.95 Absolute Lymphocytes 1.03 L Absolute Monocytes 0.59 Absolute Eosinophils 0.10 Absolute Basophils 0.03 Serum Osmolality 274 L Urine Color Yellow Urine Clarity Clear Urine pH 6.0 Ur Specific [place] 1.025 Urine Protein Negative Urine Ketones Trace H Urine Blood Negative Urine Nitrite Negative Urine Bilirubin Negative Urine Urobilinogen 0.2 Ur Leukocyte Esterase Negative Ur Random Creatinine 89.33 Ur Random Sodium 110 Urine Glucose Negative Time Spent with Patient Time Spent with Patient: 35-49 minutes Time was spent: preparing to see the patient(eg.review tests), referring, communicating with other health health care attorney, counseling the patient and care coordination
[2023-03-13 15:04] VITALS: BP 102/62; PULSE 79; RESP 15; TEMP 36.6; O2SAT 95
[2023-03-13 15:13] LABS: Anaplasma phagocytophilum Negative (Negative); B. miyamotoi PCR Negative (Negative); Babesia divergens/MO-1 Negative (Negative); Babesia duncani Negative (Negative); Babesia microti Negative (Negative); Ehrlichia chaffeensis Negative (Negative); Ehrlichia ewingii/canis Negative (Negative); Ehrlichia muris eauclairensis Negative (Negative)
[2023-03-13 17:50] LABS: Osmolality, Urine 756 mOsm/kg (150-1150)
[2023-03-13] MEDS: Simvastatin 10 MG TAB 5 MG PO (20:51)
[2023-03-13] MEDS: Enoxaparin 30 MG/0.3 ML SYR SC (20:51)
[2023-03-13 20:55] VITALS: BP 111/61; PULSE 82; RESP 15; TEMP 37.3; O2SAT 95
[2023-03-13] MEDS: Famotidine 20 MG TAB 10 MG PO (21:55)
[2023-03-14 04:22] VITALS: BP 144/73; PULSE 80; RESP 14; TEMP 36.5; O2SAT 96
[2023-03-14 06:32] LABS: Anion Gap 4.3 mmol/L (3-11); BUN 29 mg/dL (7-18); CO2 31.7 mmol/L (21.0-32.0); CREATININE 0.9 mg/dL (0.55-1.02); Calcium 9.1 mg/dL (8.5-10.1); Chloride 93 mmol/L (98-107); Estimated GFR 62.26 (mL/min/1.73m2); Glucose 108 mg/dL (74-106); Potassium 4.5 mmol/L (3.5-5.1); Sodium 129 mmol/L (136-145)
[2023-03-14 07:28] VITALS: BP 131/70; PULSE 83; RESP 18; TEMP 36.3; O2SAT 95
[2023-03-14] MEDS: Torsemide 10 MG TAB PO (07:45)
[2023-03-14] MEDS: Salt Supplement (BUFFERED) TAB 1 TAB PO ×2 (07:45→12:31)
[2023-03-14] MEDS: Refresh PLUS Eye Drops 0.4ml OP (07:45)
[2023-03-14] MEDS: Multivitamin TAB 1 TAB PO (07:46)
[2023-03-14] MEDS: Metoprolol 25 MG TAB PO (07:46)
[2023-03-14] MEDS: Ferrous Sulfate 325 MG TAB PO (07:46)
[2023-03-14] MEDS: Normal Saline Flush 10 ML SYR IVP (07:46)
--- NOTE | 2023-03-14 09:06 | DSE_ITS ---
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 (4) Generalized weakness: Status: Acute (5) Fall: Status: Acute Discharge Plan Disposition Patient Disposition: Nursing Home Facility(SNF) Condition: Stable Discharge Details Reason For Visit: Symptomatic Hyponatremia,Encephalopathy,Fall Admit Date/Time: 03/09/23 16:40 Admit Provider: Radha Deras Attending Provider: Radha Deras Primary Care Provider: Paloma BusbyRandolph Hospital Course Hospital Course: This is an 88 year old female with history of hyponatremia felt to be due to SIADH, for which the patient had multiple recent admissions, hypertension treated with metoprolol, a recent pansensitive E. Coli UTI, for which the patient had completed therapy with cefpodoxime, and anemia, most recent admission requiring 3% saline to stabilize her sodium. She was ultimately started on salt tablets and low-dose diuretics with stabilization of her sodium. Unfortunately she has experienced chronic abdominal discomfort for several months now which has been worked up with no etiology. She was to see GI in [place] who had ordered an outpatient barium swallow for her but has not fo llowed up with them yet. We did obtain the barium swallow here while she was on one of her admissions but this study showed no pathology to explain her symptoms. Her poor p.o. intake is also thought to contribute to her hyponatremia, toast and tea diet. She has been working with physical therapy and slowly progressing but remains too frail and deconditioned to safely be discharged to home. In light of her frequent readmissions it is thought she should be discharged to skilled facility for further rehabilitation prior to returning home. She has remained medically stable. She has been eating and drinking although appetite remains poor. Case management has been following and she is being discharged to [place] via wheelchair van. Discharge discussed with Dr. Jiménez [place] [facility] and New Rx's Prescriptions: New torsemide 10 mg Tablet 10 mg PO DAILY Qty: 0 0RF Thermotabs 287-180-15 mg Tablet 1 tab PO QMEALS Qty: 0 0RF Continued ICaps AREDS2 (copper citrate) 250 mg-200 unit -12.5 mg-1 mg tablet 1 tab PO BID famotidine 20 mg tablet 20 mg PO QHS Qty: 90 3RF albuterol sulfate 90 mcg/actuation HFA aerosol inhaler 1 - 2 inh IH Q6H PRN (Reason: shortness of breath or wheezing) Qty: 8.5 6RF vitamins A,C,C-xunu-ctcchy 7,160-113-100 smzj-ci-jxns tablet,delayed release (DR/EC) 1 tab PO DAILY Hold Instructions: Pt Stopped/Never Started estradiol 0.01 % (0.1 mg/gram) cream 1 g vaginal DAILY Qty: 42.5 2RF Rx Instructions: local application daily for one week and then 3 times per week metoprolol tartrate 25 mg tablet 25 mg PO BID Qty: 180 3RF simvastatin 5 mg tablet 5 mg PO DAILY Qty: 90 3RF Blink Tears 0.25 % drops ophthalmic (eye) DAILY ferrous sulfate 325 mg (65 mg iron) tablet,delayed release (DR/EC) 325 mg PO .QOD Patient Comments: TAKE ONE TABLET BY MOUTH EVERY OTHER DAY Discontinued cefpodoxime 200 mg tablet 200 mg PO BID Qty: 10 0RF Rx Instructions: must administer with a meal/food Discharge Instructions Instructions: Hyponatremia (DC) Stand Alone Forms: Nursing Discharge Form Activity:: Activity as Tolerated Equipment/Supplies:: No Equipment Needed Diet:: As Tolerated Discharge Orders Discharge Orders: Discharge Order (Routine); Ordered 03/14/23 Ordered By: Melva Hastings DS: Summary Time Spent with Patient providing and/or coordinating discharge services: Greater than 30 minutes Status at Discharge Functional status at discharge: independent ambulation Overall status at discharge: patient is progressing back to baseline Mental Status: mental status grossly normal Speech and Movement: speech and movement normal Mood: congruent mood Affect: normal affect Exam Narrative Exam Narrative: Elderly female frail stated age no acute distress, Neuro awake alert oriented to person place. Some memory deficit at times easily reoriented, poor historian Psychiatric normal mood and affect appropriate Head is atraumatic oral mucosa dry Neck is supple there is no JVD Cardiovascular regular rate and rhythm no peripheral edema Respirations are even and unlabored breath sounds are clear bilaterally with diminished bases Abdomen is flat soft, reports it is tender with palpation, positive bowel sounds Her extremities are without edema moves all extremities Psych Mental Status: mental status grossly normal Speech and Movement: speech and movement normal Mood: congruent mood Affect: normal affect DS: Data Vitals/I&O Vitals and I&O: Vital Signs Temperature 36.3 C L 03/14/23 07:28 Temperature Source Tympanic 03/14/23 07:28 Pulse 83 03/14/23 07:28 Pulse Rhythm Regular 03/14/23 08:35 Pulse 71 03/11/23 10:02 Respiratory Rate 18 03/14/23 07:28 Respiratory Effort Normal, Non-Labored 03/14/23 08:35 Respiratory Depth Normal 03/14/23 08:35 Respiratory Pattern Normal 03/14/23 08:35 Blood Pressure 131/70 03/14/23 07:28 Blood Pressure Mean 98 03/11/23 15:22 Blood Pressure Position Supine 03/11/23 07:43 Pulse Oximetry 95 03/14/23 07:28 Oxygen Delivery Method Room Air 03/14/23 07:28 Oxygen Flow Rate 0 03/14/23 07:28 Pain Level 0 03/14/23 07:28 Comment unable to assess pain level recent UTI 03/09/23 15:10 Intake & Output 03/13/23 03/13/23 03/14/23 11:59 23:59 11:59 Intake Total 150 / 1200 1050 / 1200 210 / 210 Output Total 300 / 640 340 / 640 900 / 900 Balance -150 / 560 710 / 560 -690 / -690 Weight 50.2 kg 50.2 kg Intake: IV 10 Oral 150 / 1190 1040 / 1190 200 / 200 Output: Urine 300 / 640 340 / 640 900 / 900 Other: Urine Color Yellow Yellow Yellow Urine Appearance Clear Cloudy Clear Urine Odor None None Normal Stool Size Large Moderate Stool Characteristics Soft Soft Formed Brown Voiding Methods Toilet Toilet Toilet Data Completed and Pending Labs on day of discharge: Labs from last 24 hours 03/14/23 03/09/23 05:30 15:03 Sodium 129 L Potassium 4.5 Chloride 93 L Carbon Dioxide 31.7 Anion Gap 4.3 BUN 29 H Creatinine 0.9 Est GFR (CKD-EPI 2020) 62.26 Glucose 108 H Calcium 9.1 B. divergens/MO-1 PCR Negative Babesia duncani (PCR) Negative Babesia microti DNA PCR Negative E.chaffeensis DNA (PCR) Negative E.ewingii/canis DNA PCR Negative E.muris eauclairensis (PCR) Negative A. phagocytophilum (PCR) Negative Blood B. miyamotoi (PCR) Negative Preliminary micro results at discharge 03/09/23 15:05 Blood Culture - Preliminary Blood NO GROWTH 96 HOURS 03/09/23 14:45 Blood Culture - Preliminary Blood NO GROWTH 96 HOURS PFSH All Active Problems (Updated 03/12/23 @ 17:45 by Melva Hastings, ANYA) Discharge planning issues (Acute) DVT prophylaxis (Acute) Fall (Acute) Acute hyponatremia (Acute) Complicated UTI (urinary tract infection) (Acute) Hyponatremia (Acute) SIADH (syndrome of inappropriate ADH production) (Chronic) Generalized weakness (Acute) Dehydration (Acute) Pancreatitis (Chronic) Hyponatremia (Acute) Constipation (Acute) Gastritis (Acute) Abdominal pain (Acute) Dysuria (Acute) Sore in nose (Acute) LUQ abdominal pain (Acute) Serrated adenoma of colon (Acute ~07/18/22) Neck pain on right side (Acute) Perforated diverticulum (Chronic) Dermatitis (Acute) Vaginitis, atrophic (Acute) Hyponatremia (Chronic) Multiple occasions last of which was 01/2021, 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 intestinal meta. or dysplasia Family history of GI malignancy Essential hypertension (01/14/13) Depressive disorder Atrophic vaginitis (08/19/11) Pt. states she is unsure [place]; rib fracture; lacerated liver; fx-pelvis; perf. intestine Family history of GI malignancy Surgical History KNEE SURGERY (~05/2012) Abdominal hysterectomy EGD - MAC (04/22/17) Colonoscopy - MAC (04/22/17) Colonoscopy - MAC (~02/2012) Cholecystectomy Bladder Surgery Bilateral salpingectomy with oophorectomy Arthroplasty of knee (05/27/12) LEFT - Pt denies knee replacement Family History Mother , AGE 84 Heart disease Father , AGE 87 Stroke Heart disease Cancer Sister Stroke Brother Alcohol abuse Cancer Brother Cancer of kidney Son Hyperlipidemia Pulmonary disease Daughter Thyroid disease Daughter Cancer s/p hysterectomy Daughter No problems noted. Daughter No problems noted. Brother No problems noted. Maternal Grandfather No problems noted. Paternal Grandfather No problems noted. Maternal Grandmother No problems noted. Paternal Grandfather No problems noted. Social History Smoking/Tobacco Use Status: Former Tobacco Use tobacco type: cigarettes Quit Date: 03/17/97 Second Hand Exposure: Yes Smoking risk assessment performed?: Yes Alcohol Intake: never Drug use: Never Substance use type: does not use Housing: house Communication Needs: Hard of Hearing Do you need help understanding health information?: Often Pets and animals: No Sexually active: No Do you think of yourself as: straight/heterosexual Current gender identity: female What is your relationship status?: How often do you talk on the phone with friends or family?: decline to answer How often do you attend christian or jainism services?: decline to answer Do you belong to any clubs or organized social groups?: decline to answer Panel score (0-1 are the most socially isolated patients): 0 What type of physical activity do you participate in: walking Carri/Adventist: No preference Special carri needs: No Drive intox 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 over the road driver: No Do you feel safe at home: Yes Do you feel safe in your relationship?: Yes Time Spent with Patient Time Spent with Patient: 45-69 minutes Time was spent: preparing to see the patient(eg.review tests), obtaining and/or reviewing separately otained hiistory, ordering medications,tests, procedures, indepentently interpreting results, counseling the patient and care coordination
--- NOTE | 2023-03-14 17:40 | PDOC.CMDIS ---
Date of service: 03/14/23 Time of Service: 17:40 LACE Index Scoring Tool Questions: Length of Stay (in days): 4 - 6 Was the patient admitted via the E.D.?: Yes E.D. Visits: 5 Answers: Total Score: 11 Risk of Readmission: High Risk Care Management Discharge Plan Reason for Hospitalization: Symptomatic hyponatremia, encephalopathy, fall Discharge Plan: Cathy transferred to [facility] for short term rehab prior to returning home. She was transported via [email or web address] private vehicle, coordinated by CM. She will follow up with her PCP and discharge plan of care. She is happy to be going to rehab. Patient/Family Education Needs: Review discharge instructions and limitations, discussion of self care needs including ask me three. Services Needed at Discharge: Intermediate Facility ([facility]) and Transportation ([facility] private vehicle)
== END 2023-03-14 12:55 | disposition skilled nursing facility (03) | DRG 643 ==
LOC: ER 16:34 → ICU 17:50 → MS 03-11 18:47
PROVIDERS: Internal Medicine; Nurse Practitioner Acute Care; Admitting Provider Internal Medicine; Emergency Provider Emergency Medicine; PCP Nurse Practitioner Family; Visit Provider Internal Medicine
DX: E22.2 Syndrome of inappropriate secretion of antidiuretic hormone (principal); G92.8 Other toxic encephalopathy; K86.1 Other chronic pancreatitis; I16.0 Hypertensive urgency; R94.31 Abnormal electrocardiogram [ECG] [EKG]; R53.1 Weakness; W19.XXXA Unspecified fall, initial encounter; Z66 Do not resuscitate; D64.9 Anemia, unspecified; K59.00 Constipation, unspecified; R91.8 Other nonspecific abnormal finding of lung field; K21.00 Gastro-esophageal reflux disease with esophagitis, without bleeding; K22.70 Barrett's esophagus without dysplasia; N39.46 Mixed incontinence; K29.60 Other gastritis without bleeding; E78.5 Hyperlipidemia, unspecified; Z80.0 Family history of malignant neoplasm of digestive organs; Z87.891 Personal history of nicotine dependence; Z96.652 Presence of left artificial knee joint; Z86.010 Personal history of colon polyps
CPT/HCPCS: 00123; 36415; 36416; 80048; 82962; 83935; 87040; 87637; 87798; 93005; 96365; 96367; 97110; 97116; 97161; 99285; 70450; 71045; 81003; 82565; 83605; 83735; 83930; 84300; 84484; 85025; 86618; 87086; 93010; 93306; 99223; 99232; 99233; 99239; 99291; J1650; J3490

== ENCOUNTER 2023-04-10 13:47 | Outpatient (REF) | payer MEDICARE, SELFPAY ==
[2023-04-10 13:37] LABS: Anion Gap 3.2 mmol/L (3-11); BUN 30 mg/dL (7-18); CO2 34.8 mmol/L (21.0-32.0); CREATININE 1.2 mg/dL (0.55-1.02); Calcium 9.1 mg/dL (8.5-10.1); Chloride 98 mmol/L (98-107); Estimated GFR 44.08 (mL/min/1.73m2); Glucose 114 mg/dL (74-106); Potassium 4.6 mmol/L (3.5-5.1); Sodium 136 mmol/L (136-145)
== END 2023-04-10 13:48 | disposition home or self-care (01) ==
LOC: LBN 13:47
PROVIDERS: PCP Nurse Practitioner Family; Visit Provider Nurse Practitioner Family
DX: E87.1 Hypo-osmolality and hyponatremia; G92.8 Other toxic encephalopathy; R41.82 Altered mental status, unspecified; R94.31 Abnormal electrocardiogram [ECG] [EKG]
CPT/HCPCS: 80048

== ENCOUNTER 2023-04-18 02:32 | Outpatient (CLI) | payer MEDICARE, SELFPAY ==
[2023-04-18 12:37] LABS: Anion Gap 3.5 mmol/L (3-11); BUN 19 mg/dL (7-18); CO2 31.5 mmol/L (21.0-32.0); CREATININE 0.8 mg/dL (0.55-1.02); Chloride 102 mmol/L (98-107); Estimated GFR 71.71 (mL/min/1.73m2); Glucose 88 mg/dL (74-106); Potassium 4.9 mmol/L (3.5-5.1); Sodium 137 mmol/L (136-145)
== END 2023-04-18 02:33 | disposition home or self-care (01) ==
LOC: LOS 02:32
PROVIDERS: PCP Nurse Practitioner Family; Visit Provider Nurse Practitioner Family
DX: E87.1 Hypo-osmolality and hyponatremia (principal)
CPT/HCPCS: 36415; 80048

== ENCOUNTER 2023-04-24 13:10 | Outpatient (REF) | payer MEDICARE, SELFPAY ==
[2023-04-24 14:38] LABS: Anion Gap 8.7 mmol/L (3-11); BUN 32 mg/dL (7-18); CO2 31.3 mmol/L (21.0-32.0); CREATININE 1.2 mg/dL (0.55-1.02); Calcium 9.3 mg/dL (8.5-10.1); Chloride 100 mmol/L (98-107); Estimated GFR 44.08 (mL/min/1.73m2); Glucose 114 mg/dL (74-106); Potassium 4.5 mmol/L (3.5-5.1); Sodium 140 mmol/L (136-145)
== END 2023-04-24 13:11 | disposition home or self-care (01) ==
LOC: LBN 13:10
PROVIDERS: PCP Nurse Practitioner Family; Visit Provider Nurse Practitioner Family
DX: R79.89 Other specified abnormal findings of blood chemistry (principal); E87.1 Hypo-osmolality and hyponatremia
CPT/HCPCS: 80048

== ENCOUNTER 2023-04-28 07:44 | Emergency (ER) | payer MEDICARE, SELFPAY ==
[2023-04-28] VITALS (17 sets, daily range): BP systolic 144; BP diastolic 53; PULSE 56–71; RESP 14–20; TEMP 36.4; O2SAT 85–99
--- NOTE | 2023-04-28 07:45 | RT.EKG_ITS ---
APPROVED REPORT Exam: Resting ECG Reason for Exam: Back pain Patient Location: E HR:66 bpm ECG Measurements Heart Rate 66 AXIS ID 175 P 40 QRSd 85 QRS 58 QT 391 T 38 QTc 411 Conclusion Sinus rhythm...normal P axis, V-rate 60- 99 Left atrial enlargement...P, P'>60mS, <-0.15mV V1
--- NOTE | 2023-04-28 08:00 | ED.GENADUL_ITS ---
HPI General Mode of arrival: ambulatory . Date/Time Provider Initiated Documentation: 04/28/23 07:50 . Limitations to Documentation: no limitations . Information obtained by: patient, RN notes reviewed and old records reviewed . HPI Narrative: 88-year-old female past medical history of SIADH, COPD, hypertension, high cholesterol, diverticulitis, chest pain, hyperlipidemia former smoker her blood presents to the ER with a chief complaint of right shoulder pain, shortness of breath which is at her baseline. She also reports that last week she had some left-sided chest pain which has now resolved. She also endorses some sweating. And some swelling in her lower extremities. She reports that she takes a salt tablet. Related Data Home Medications Medication Instructions Recorded Confirmed metoprolol tartrate 25 mg tablet 25 mg PO BID #180 tab-caps 02/26/22 04/28/23 vit C 250 mg-vit E 200 unit-zinc 1 tab PO BID 07/08/22 04/28/23 12.5 mg-copper 1 mc-eyd-ktgums tablet (ICaps AREDS2 (copper citrate)) albuterol sulfate 90 mcg/actuation 1 - 2 inh inhalation Q6H PRN 11/19/22 04/28/23 aerosol inhaler shortness of breath or wheezing #8.5 grams famotidine 20 mg tablet 20 mg PO QHS #90 tabs 11/19/22 04/28/23 vit A 7,160 unit-C 113 mg-E 100 1 tab PO DAILY 01/24/23 04/28/23 fnuo-naqh-dcrstk tablet,delayed rel. ferrous sulfate 325 mg (65 mg 325 mg PO .QOD 01/27/23 04/28/23 iron) tablet,delayed release estradiol 0.01% (0.1 mg/gram) 1 g vaginal DAILY #42.5 grams 02/18/23 04/28/23 vaginal cream polyethylene glycol 400 0.25 % eye 1 drp ophthalmic (eye) DAILY 03/10/23 04/28/23 drops (Blink Tears) macular degeneration simvastatin 5 mg tablet 5 mg PO DAILY #90 tabs 03/11/23 04/28/23 sodium chloride-potassium chloride 1 tab PO QMEALS #0 tabs 03/14/23 04/28/23 287 mg-180 mg-15 mg tablet (Thermotabs) torsemide 10 mg tablet 10 mg PO DAILY #60 tabs 04/17/23 04/28/23 triamcinolone acetonide 0.1 % 1 applic topical BID #80 grams 04/17/23 04/28/23 topical cream amoxicillin 875 mg-potassium 1 tab PO BID 10 days #20 tabs 04/28/23 clavulanate 125 mg tablet Previous Rx's Medication Instructions Recorded metoprolol tartrate 25 mg tablet 25 mg PO BID #180 tab-caps 02/26/22 albuterol sulfate 90 mcg/actuation 1 - 2 inh inhalation Q6H PRN 11/19/22 aerosol inhaler shortness of breath or wheezing #8.5 grams famotidine 20 mg tablet 20 mg PO QHS #90 tabs 11/19/22 estradiol 0.01% (0.1 mg/gram) 1 g vaginal DAILY #42.5 grams 02/18/23 vaginal cream simvastatin 5 mg tablet 5 mg PO DAILY #90 tabs 03/11/23 sodium chloride-potassium chloride 1 tab PO QMEALS #0 tabs 03/14/23 287 mg-180 mg-15 mg tablet (Thermotabs) torsemide 10 mg tablet 10 mg PO DAILY #60 tabs 04/17/23 triamcinolone acetonide 0.1 % 1 applic topical BID #80 grams 04/17/23 topical cream amoxicillin 875 mg-potassium 1 tab PO BID 10 days #20 tabs 04/28/23 clavulanate 125 mg tablet Allergies Allergy/AdvReac Type Severity Reaction Status Date / Time ciprofloxacin [From Cipro] Allergy Intermediate Lips and Verified 04/17/23 13:23 face burn, feels shaky, arm tingly codeine AdvReac Intermediate Dizziness/L Verified 04/17/23 13:23 ightheade lovastatin AdvReac Intermediate myalgias Verified 04/17/23 13:23 oxycodone AdvReac Intermediate NAUSEA, GI Verified 04/17/23 13:23 UPSET azithromycin AdvReac cramping, Verified 04/17/23 13:23 anorexia doxycycline AdvReac Nausea, Verified 04/17/23 13:23 Vomiting hydrocodone AdvReac unknown Verified 04/17/23 13:23 General Stated Complaint: GenMedical MELINDA: 3 Review of Systems All systems reviewed & are unremarkable except as noted in HPI and below Cardiovascular Cardiovascular: Reports as per HPI, Reports chest pain, Reports chest pain at rest, Denies radiating jaw, neck or arm pain and Denies dyspnea Respiratory Respiratory: Denies dyspnea Exam Narrative Exam Narrative: Constitutional: Alert and oriented x3. Appears stated age. Normal body habitus. Head: Normocephalic, no trauma. Eyes: Pupils PERRL, Red reflex noted, EOM's intact. Eyelids symmetrical without lesions, discharge, or swelling. ENT:External ear normal to inspection, no mastoid TTP, swelling, or erythema, Chest: RRR, Normal S1, S2, distal pulses intact. Resp: Lungs clear to auscultation bilaterally, no wheezes, rales, or rhonchi. Abdomen: Soft, non-distended, Normoactive bowel sounds all 4 quads. Musculoskeletal: Normal gait, 5/5 strength to all four extremities. Skin: No suspicious rashes or lesions. Capillary refill less than 2 sec. incision scar posterior shoulder. Patient reports she does have a history manage injury to the past. Neurologic: Cranial nerves II-XII intact. Alert and oriented x 3. Motor: No deficits noted. Sensory: Intact bilaterally all 4 extremities. Hematologic/Lymphatic: No ecchymosis, no lymphadenopathy. Course Vital Signs Vital signs: Vital Signs Temperature 36.4 C L 04/28/23 07:48 Pulse 71 04/28/23 07:48 Blood Pressure 144/53 H 04/28/23 07:48 Pulse Oximetry 95 04/28/23 07:48 Temperature 36.4 C L 04/28/23 07:48 Temperature Source Temporal Artery Scan 04/28/23 07:48 Pulse 71 04/28/23 07:48 Blood Pressure 144/53 H 04/28/23 07:48 Blood Pressure Position Supine 04/28/23 07:48 Pulse Oximetry 95 04/28/23 07:48 Oxygen Delivery Method Room Air 04/28/23 07:48 Oxygen Flow Rate 0 04/28/23 07:48 Medical Decision Making 88-year-old female past medical history of SIADH, COPD, hypertension, high c holesterol, diverticulitis, chest pain, hyperlipidemia former smoker her blood presents to the ER with a chief complaint of right shoulder pain, shortness of breath which is at her baseline. She also reports that last week she had some left-sided chest pain which has now resolved. She also endorses some sweating. And some swelling in her lower extremities. She reports that she takes a salt tablet. Workup ordered including CBC CMP, proBNP chest x-ray serial troponins. 59: EKG was reviewed by Dr. Smith and myself ER attending, normal sinus rhythm, old EKG available for review no significant change from previous, no STEMI. CBC shows no leukocytosis, CMP largely within normal limits BUN is slightly elevated at 26, glucose 157 troponin initially is less than 50 which is within normal limits, BUN is at patient's baseline. D-dimer is slightly elevated the age-adjusted D-dimer cutoff is 860 hers is 901, she is not tachycardic, does not present as PE however this is above the recommended level for her age. However patient is ruled out with Wells criteria, she has no clinical signs or symptoms of DVT, PE is not likely she is not tachycardic, she has not had any immobilization for 3 days or surgery in the previous 4 weeks. She has never had a PE or DVT no hemoptysis and no malignancy with treatment within the 6 months or palliative care. So she is low risk. Her clinical presentation is consistent with musculoskeletal. She does have tenderness with palpation to her rhomboid muscle. She does have a history of shoulder surgery and broken ribs from a previous traumatic injury. Chest x-ray within normal limits, shoulder x-ray shows some degenerative changes nothing acute some old rib fractures. On patient reevaluation she reports that she did have another chest pain to the left side of her chest while waiting. I did discuss risks and benefits of CT imaging of her chest. They are agreeable to wait for the 3-hour troponin and 11 I will go ahead and order CT rule out PE. 1110: Spoke with Dr. Kennedy radiologist who reports a small left upper lobe infiltrate, will treat with Augmentin as patient is allergic to doxycycline. No PE. Patient has remained hemodynamically stable throughout the remainder of her stay, at this time will treat for possible pneumonia with doxycycline twice a day. Patient is not tachycardic. No leukocytosis, instructed on follow-up care and strict return instructions. This text was generated using [employer] system, please disregard any oddities of phrase or misspellings. Medical Records Medical records reviewed: Yes I reviewed the patient's medical records. Imaging Data Radiologic Study: Imaging: CT Scan Radiologist's impression: CT CHEST PE CTA EXAM: CT CHEST PE CTA CLINICAL HISTORY: Chest Pain, Elevated Dimer. TECHNIQUE: Imaging Protocol: Axial CT angiography was performed with multi- slice acquisition and multi-planar reconstructions as well as axial, coronal and sagittal MIP reconstructions. CONTRAST MATERIAL: Intravenous: Omnipaque 350 Contrast volume:70 ml COMPARISON: CT CT CHEST/ABD/PEL W from 02/04/[address] ABDOMEN PELVIS W from 02/22/2023 CR XR PORTABLE CHEST AP from 04/28/2023 FINDINGS: Pulmonary Arteries: No evidence of filling defect to suggest pulmonary emboli. Tracheobronchial tree: No mucous plugging. Mediastinum and Soni: No dominant adenopathy or fluid collection. Pulmonary parenchyma: Patchy infiltrate seen in left upper lobe. Scarring inferomedial lingula and right middle lobe. Pleura: No effusion or pneumothorax. Heart: The heart is mildly dilated. Severe coronary artery calcifications are seen. Aorta: Thoracic aorta non-dilated. No dissection. Atherosclerotic changes. Upper abdomen: No acute findings. Bones: No compression fractures. Degenerative changes in the spine. Tubes, Catheters, and Lines: None Soft tissues: Unremarkable. IMPRESSION: No evidence of pulmonary embolism. Mild patchy infiltrate left upper lobe. Findings called to Isis Vasquez, emergency department provider. Lab Data Lab results reviewed: Yes I reviewed the patient's lab results. Labs: Laboratory Tests Range/Units 04/28/23 04/28/23 08:05 11:10 WBC (4.4-10.8) 10^3/uL 4.82 RBC (3.93-5.22) 10^6/uL 4.19 Hgb (11.2-15.7) g/dL 12.5 Hct (36.0-46.0) % 38.5 MCV (80-95) fL 92 MCH (27.0-33.0) pg 29.8 MCHC (32.0-36.0) % 32.5 RDW (11.7-14.6) % 13.2 Plt Count (130-400) 10^3/uL 183 MPV (8.0-11.0) fL 10.6 Immature Gran % 0.2 Neutrophils % 75.0 Lymphocytes % 16.8 Monocytes % 6.6 Eosinophils % 1.0 Basophils % 0.4 Nucleated RBC % (0.0-0.3) % 0.0 Absolute Neutrophils (1.2-6.7) 10^3/uL 3.61 Absolute Lymphocytes (1.2-3.4) 10^3/uL 0.81 L Absolute Monocytes (0.1-0.8) 10^3/uL 0.32 Absolute Eosinophils (0.0-0.7) 10^3/uL 0.05 Absolute Basophils (0.0-0.2) 10^3/uL 0.02 D-Dimer (<500) ng/mlFEU 901 H Sodium (136-145) mmol/L 138 Potassium (3.5-5.1) mmol/L 4.3 Chloride (98-107) mmol/L 101 Carbon Dioxide (21.0-32.0) mmol/L 29.9 Anion Gap (3-11) mmol/L 7.1 BUN (7-18) mg/dL 26 H Creatinine (0.55-1.02) mg/dL 1.0 Est GFR (CKD-EPI 2020) (mL/min/1.73m2) 54.87 Glucose (74-106) mg/dL 157 H Calcium (8.5-10.1) mg/dL 9.2 Magnesium (1.8-2.4) mg/dL 2.0 Total Bilirubin (0.2-1.0) mg/dL 0.4 AST (15-37) U/L 26 ALT (14-59) U/L 21 Alkaline Phosphatase (46-116) U/L 85 Troponin I (< or =60) ng/L < 50 < 50 NT-Pro-B Natriuret Pep (<300) pg/mL 451 H Total Protein (6.4-8.2) g/dL 7.3 Albumin (3.4-5.0) g/dL 3.6 Quality:[facility] Health Related Social Needs: No Data to Display PFSH All Active Problems (Updated 04/28/23 @ 11:11 by Isis Vasquez NP) Pneumonia (Acute) Left upper lobe pulmonary infiltrate (Acute) Urinary incontinence (Acute) Fall (Acute) Acute hyponatremia (Acute) Hyponatremia (Acute) SIADH (syndrome of inappropriate ADH production) (Chronic) Generalized weakness (Acute) Dehydration (Acute) Pancreatitis (Chronic) Hyponatremia (Acute) Constipation (Acute) Gastritis (Acute) Abdominal pain (Acute) Dysuria (Acute) Sore in nose (Acute) LUQ abdominal pain (Acute) Serrated adenoma of colon (Acute ~07/18/22) Neck pain on right side (Acute) Perforated diverticulum (Chronic) Dermatitis (Acute) Vaginitis, atrophic (Acute) Hyponatremia (Chronic) Multiple occasions last of which was 01/2021, 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 intestinal meta. or dysplasia Family history of GI malignancy Essential hypertension (01/14/13) Depressive disorder Atrophic vaginitis (08/19/11) Pt. states she is unsure [place]; rib fracture; lacerated liver; fx-pelvis; perf. intestine Family history of GI malignancy Surgical History KNEE SURGERY (~05/2012) Abdominal hysterectomy EGD - MAC (04/22/17) Colonoscopy - MAC (04/22/17) Colonoscopy - MAC () Cholecystectomy Bladder Surgery Bilateral salpingectomy with oophorectomy Arthroplasty of knee (05/27/12) LEFT - Pt denies knee replacement Family History Mother , AGE 84 Heart disease Father , AGE 87 Stroke Heart disease Cancer Sister Stroke Brother Alcohol abuse Cancer Brother Cancer of kidney Son Hyperlipidemia Pulmonary disease Daughter Thyroid disease Daughter Cancer s/p hysterectomy Daughter No problems noted. Daughter No problems noted. Brother No problems noted. Maternal Grandfather No problems noted. Paternal Grandfather No problems noted. Maternal Grandmother No problems noted. Paternal Grandfather No problems noted. Social History Smoking/Tobacco Use Status: Former Tobacco Use tobacco type: cigarettes Quit Date: 03/17/97 Second Hand Exposure: Yes Smoking risk assessment performed?: Yes Alcohol Intake: never Drug use: Never Substance use type: does not use Housing: house Communication Needs: Hard of Hearing Do you need help understanding health information?: Often Pets and animals: No Sexually active: No Do you think of yourself as: straight/heterosexual Current gender identity: female What is your relationship status?: How often do you talk on the phone with friends or family?: decline to answer How often do you attend latter-day or amish services?: decline to answer Do you belong to any clubs or organized social groups?: decline to answer Panel score (0-1 are the most socially isolated patients): 0 What type of physical activity do you participate in: walking Carri/Mandaen: No preference Special carri needs: No Drive intox 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: No Do you feel safe at home: Yes Do you feel safe in your relationship?: Yes Discharge Plan Disposition Patient Disposition: Home Condition: Stable Discharge Details Clinical Impression: Left upper lobe pulmonary infiltrate, Pneumonia Primary Care Provider: Jason Huff ED Provider: Isis Vasquez Home Meds and New Rx's Prescriptions: New amoxicillin-pot clavulanate 875-125 mg tablet 1 tab PO BID 10 Days Qty: 20 0RF Continued ICaps AREDS2 (copper citrate) 250 mg-200 unit -12.5 mg-1 mg tablet 1 tab PO BID famotidine 20 mg tablet 20 mg PO QHS Qty: 90 3RF albuterol sulfate 90 mcg/actuation HFA aerosol inhaler 1 - 2 inh IH Q6H PRN (Reason: shortness of breath or wheezing) Qty: 8.5 6RF triamcinolone acetonide 0.1 % cream 1 applic topical BID Qty: 80 2RF torsemide 10 mg tablet 10 mg PO DAILY Qty: 60 0RF vitamins A,C,V-bous-kgllag 7,160-113-100 lilj-ze-kpxj tablet,delayed release (DR/EC) 1 tab PO DAILY Hold Instructions: Pt Stopped/Never Started estradiol 0.01 % (0.1 mg/gram) cream 1 g vaginal DAILY Qty: 42.5 2RF Rx Instructions: local application daily for one week and then 3 times per week metoprolol tartrate 25 mg tablet 25 mg PO BID Qty: 180 3RF simvastatin 5 mg tablet 5 mg PO DAILY Qty: 90 3RF Blink Tears 0.25 % drops 1 drp ophthalmic (eye) DAILY Thermotabs 287-180-15 mg Tablet 1 tab PO QMEALS Qty: 0 0RF ferrous sulfate 325 mg (65 mg iron) tablet,delayed release (DR/EC) 325 mg PO .QOD Patient Comments: TAKE ONE TABLET BY MOUTH EVERY OTHER DAY Discharge Instructions Instructions: Pneumonia (ED) Additional Instructions: CT of your chest shows that you have a small mild infiltrate in your left upper lobe which is consistent with pneumonia. I do believe this is what is causing your symptoms. Please take the antibiotic twice daily with yogurt or probiotic as prescribed. No evidence of blood clots. Continue to take your medications as previously prescribed. Follow up with primary care provider in 7-10 days. Return to ED sooner if any worsening or concerns. Increase oral fluids. You were placed on care management list to assist you in getting established with a new PCP if needed. Please take Tylenol with food every 4-6 hours as needed for pain and swelling. Referrals: [facility] [Provider Group] - 1 week
--- NOTE | 2023-04-28 08:00 | DI.RAD_ITS ---
Exam(s) XR SHOULDER RT COMPLETE 2+V EXAM: XR SHOULDER RT COMPLETE 2+V CLINICAL HISTORY: Right shoulder pain. TECHNIQUE: 2D digital imaging was performed. Five views. COMPARISON: No exams were available for comparison FINDINGS: BONES: No acute fracture is present. No bony destructive lesion is seen. Old right rib fractures. S purring at the tip of the acromion JOINTS: No dislocation present. Degenerative changes of the AC joint and glenohumeral joint. SOFT TISSUE: Normal. IMPRESSION: Degenerative changes. No acute abnormality. DATA REPOSITORY: RADIATION DOSE DELIVERED:
[2023-04-28 08:18] LABS: Abs Immature Grans 0.01 10^3/uL (0.0-0.06); Absolute Basophil Count 0.02 10^3/uL (0.0-0.2); Absolute Eosinophil Count 0.05 10^3/uL (0.0-0.7); Absolute Lymphocyte Count 0.81 10^3/uL (1.2-3.4); Absolute Monocyte Count 0.32 10^3/uL (0.1-0.8); Absolute Neutrophil Count 3.61 10^3/uL (1.2-6.7); Basophils % 0.4; HCT 38.5 % (36.0-46.0); HGB 12.5 g/dL (11.2-15.7); Immature Grans % 0.2; Lymphocytes % 16.8; MCH 29.8 pg (27.0-33.0); MCHC 32.5 % (32.0-36.0); MCV 92 fL (80-95); MPV 10.6 fL (8.0-11.0); Monocytes % 6.6; Platelet Count 183 10^3/uL (130-400); RBC 4.19 10^6/uL (3.93-5.22); RDW 13.2 % (11.7-14.6); RDW-SD 45.1 fL; WBC 4.82 10^3/uL (4.4-10.8)
[2023-04-28 08:42] LABS: ALT 21 U/L (14-59); AST 26 U/L (15-37); Albumin 3.6 g/dL (3.4-5.0); Alkaline Phosphatase 85 U/L (46-116); Anion Gap 7.1 mmol/L (3-11); BUN 26 mg/dL (7-18); Bilirubin, Total 0.4 mg/dL (0.2-1.0); CO2 29.9 mmol/L (21.0-32.0); Calcium 9.2 mg/dL (8.5-10.1); Chloride 101 mmol/L (98-107); Estimated GFR 54.87 (mL/min/1.73m2); Glucose 157 mg/dL (74-106); Potassium 4.3 mmol/L (3.5-5.1); Sodium 138 mmol/L (136-145); Total Protein 7.3 g/dL (6.4-8.2); Troponin I < 50 ng/L (< or =60)
[2023-04-28 09:01] LABS: D-Dimer 901 ng/mlFEU (<500)
[2023-04-28] MEDS: Lidocaine 5% Patch 1 PATCH TP (09:10)
--- NOTE | 2023-04-28 09:11 | DI.RAD_ITS ---
Exam(s) XR PORTABLE CHEST AP EXAM: XR PORTABLE CHEST AP CLINICAL HISTORY: SOB, Chest Pain TECHNIQUE: 2D digital imaging was performed. COMPARISON: No exams were available for comparison FINDINGS: Leads overlie the chest. LUNGS: Clear. No pleural abnormality seen. HEART: Normal size. AORTA: Normal diameter. BONES: Old right rib fractures. Degenerative changes of both shoulders. Soft tissues: Unremarkable. IMPRESSION: No acute findings. DATA REPOSITORY: RADIATION DOSE DELIVERED:
[2023-04-28 09:39] LABS: NT-proBNP 451 pg/mL (<300)
--- NOTE | 2023-04-28 10:00 | DI.CT_ITS ---
Exam(s) CT CHEST PE CTA EXAM: CT CHEST PE CTA CLINICAL HISTORY: Chest Pain, Elevated Dimer. TECHNIQUE: Imaging Protocol: Axial CT angiography was performed with multi-slice acquisition and mu lti-planar reconstructions as well as axial, coronal and sagittal MIP reconstructions. CONTRAST MATERIAL: Intravenous: Omnipaque 350 Contrast volume:70 ml COMPARISON: CT CT CHEST/ABD/PEL W from 02/04/[address] ABDOMEN PELVIS W from 02/22/2023 CR XR PORTABLE CHEST AP from 04/28/2023 FINDINGS: Pulmonary Arteries: No evidence of filling defect to suggest pulmonary emboli. Tracheobronchial tree: No mucous plugging. Mediastinum and Soni: No dominant adenopathy or fluid collection. Pulmonary parenchyma: Patchy infiltrate seen in left upper lobe. Scarring inferomedial lingula and right middle lobe. Pleura: No effusion or pneumothorax. Heart: The heart is mildly dilated. Severe coronary artery calcifications are seen. Aorta: Thoracic aorta non-dilated. No dissection. Atherosclerotic changes. Upper abdomen: No acute findings. Bones: No compression fractures. Degenerative changes in the spine. Tubes, Catheters, and Lines: None Soft tissues: Unremarkable. IMPRESSION: No evidence of pulmonary embolism. Mild patchy infiltrate left upper lobe. Findings called to Isis Vasquez, emergency department provider. RADIATION DOSE DELIVERED: 224.88mGy.cm Total DLP DATA REPOSITORY: All CT scans at this facility are submitted to the National Radiology Data Registry (NRDR) Dose Index Registry (DIR) with the [employer] (ACR). RADIATION OPTIMIZATION: All CT scans at this facility use at least one of these dose optimization te chniques: automated exposure control; mA and/or kV adjustment per patient size (includes targeted exa ms where dose is matched to clinical indication); or iterative reconstruction.
[2023-04-28] MEDS: Normal Saline - Diluent 50 ML VIAL IJ (10:51)
[2023-04-28] MEDS: Omnipaque 350 MG/ML 500 ML BTL-Imaging package IJ (10:56)
--- NOTE | 2023-04-28 11:16 | NUR.NOTE ---
Referral faxed to PCP for pneumonia in 7 to 10 days. Nursing Note:
[2023-04-28 11:37] LABS: Troponin I < 50 ng/L (< or =60)
[2023-04-28] MEDS: Amoxicillin 875/Clav. 125 TAB PO (11:55)
== END 2023-04-28 12:11 | disposition home or self-care (01) ==
PROVIDERS: Emergency Provider Registered Nurse Emergency; PCP Nurse Practitioner Family
DX: M25.511 Pain in right shoulder (principal); R91.8 Other nonspecific abnormal finding of lung field; J18.9 Pneumonia, unspecified organism; I10 Essential (primary) hypertension; E78.5 Hyperlipidemia, unspecified; J44.9 Chronic obstructive pulmonary disease, unspecified; E78.00 Pure hypercholesterolemia, unspecified; Z87.891 Personal history of nicotine dependence
CPT/HCPCS: 36415; 71275; 80053; 93005; 99285; 71045; 73030; 83735; 83880; 84484; 85025; 85379; 93010; 99284

== ENCOUNTER → 2023-05-21 14:54 | Outpatient (CLI) | payer MEDICARE, SELFPAY ==
--- NOTE | 2023-05-21 12:15 | DI.RAD_ITS ---
Exam(s) XR CHEST 2V PA LATERAL EXAM: XR CHEST 2V PA LATERAL CLINICAL HISTORY: continued low O2 sats,randa pneumonia, j18.9,r91.8 TECHNIQUE: 2D digital imaging was performed. Two views. COMPARISON: CR XR PORTABLE CHEST AP from 04/28/[address] CHEST PE CTA from 04/28/2023 FINDINGS: HEART: Normal size. Aorta: Not dilated. PULMONARY VASCULATURE: Normal. LUNGS: Vague patchy densities are noted in the left upper lobe which are consistent with the infiltra te seen on prior CT. New findings. PLEURAL SPACE: No pleural effusion or pneumothorax. BONE:Degenerative changes in the spine. Old right rib fracture. Soft tissues: Unremarkable. IMPRESSION: Faint patchy infiltrate in the left upper lobe, not visibly changed from prior CT. DATA REPOSITORY: RADIATION DOSE DELIVERED:
== END ==
PROVIDERS: PCP Nurse Practitioner Family; Visit Provider Nurse Practitioner Family
DX: J18.9 Pneumonia, unspecified organism (principal); R91.8 Other nonspecific abnormal finding of lung field
CPT/HCPCS: 71046

== ENCOUNTER 2023-05-30 12:54 | Outpatient (REF) | payer MEDICARE, SELFPAY ==
[2023-05-30 22:12] LABS: Anion Gap 7.1 mmol/L (3-11); BUN 25 mg/dL (7-18); CO2 30.9 mmol/L (21.0-32.0); CREATININE 0.9 mg/dL (0.55-1.02); Calcium 8.7 mg/dL (8.5-10.1); Chloride 101 mmol/L (98-107); Estimated GFR 62.26 (mL/min/1.73m2); Glucose 79 mg/dL (74-106); Potassium 4.5 mmol/L (3.5-5.1); Sodium 139 mmol/L (136-145)
== END 2023-05-30 12:55 | disposition home or self-care (01) ==
LOC: LBN 12:54
PROVIDERS: PCP Nurse Practitioner Family; Referring Provider Nurse Practitioner Family; Visit Provider Nurse Practitioner Family
DX: E87.1 Hypo-osmolality and hyponatremia (principal); I10 Essential (primary) hypertension
CPT/HCPCS: 80048

== ENCOUNTER 2023-09-29 17:59 | Outpatient (REF) | payer MEDICARE, SELFPAY | END 2023-09-29 18:00 | disposition home or self-care (01) | LOC: LBN 17:59 | PROVIDERS: PCP Nurse Practitioner Family; Visit Provider Nurse Practitioner Family | DX: N30.90 Cystitis, unspecified without hematuria (principal) | CPT/HCPCS: 87077; 87086; 87186 ==

== ENCOUNTER 2023-10-03 10:53 | Outpatient (CLI) | payer MEDICARE, SELFPAY ==
[2023-10-03 11:25] LABS: Anion Gap 5.9 mmol/L (3-11); BUN 16 mg/dL (7-18); CO2 31.1 mmol/L (21.0-32.0); CREATININE 1.3 mg/dL (0.55-1.02); Calcium 9.1 mg/dL (8.5-10.1); Chloride 98 mmol/L (98-107); Estimated GFR 40.05 (mL/min/1.73m2); Glucose 141 mg/dL (74-106); Potassium 4.6 mmol/L (3.5-5.1); Sodium 135 mmol/L (136-145)
== END 2023-10-03 10:54 | disposition home or self-care (01) ==
PROVIDERS: PCP Nurse Practitioner Family; Visit Provider Nurse Practitioner Family
DX: E22.2 Syndrome of inappropriate secretion of antidiuretic hormone (principal)
CPT/HCPCS: 36415; 80048

== ENCOUNTER 2023-11-19 10:46 | Outpatient (REF) | payer MEDICARE, SELFPAY ==
[2023-11-19 13:36] LABS: Abs Immature Grans 0.01 10^3/uL (0.0-0.06); Absolute Basophil Count 0.02 10^3/uL (0.0-0.2); Absolute Eosinophil Count 0.05 10^3/uL (0.0-0.7); Absolute Lymphocyte Count 1.03 10^3/uL (1.2-3.4); Absolute Monocyte Count 0.51 10^3/uL (0.1-0.8); Absolute Neutrophil Count 4.51 10^3/uL (1.2-6.7); Basophils % 0.3 %; Eosinophils % 0.8 %; HGB 13.3 g/dL (11.2-15.7); Immature Grans % 0.2 %; Lymphocytes % 16.8 %; MCH 29.7 pg (27.0-33.0); MCHC 33.3 % (32.0-36.0); MCV 89 fL (80-95); MPV 11.9 fL (8.0-11.0); Monocytes % 8.3 %; Neutrophils % 73.6 %; Platelet Count 147 10^3/uL (130-400); RBC 4.48 10^6/uL (3.93-5.22); RDW 12.8 % (11.7-14.6); RDW-SD 41.6 fL; WBC 6.13 10^3/uL (4.4-10.8)
[2023-11-19 13:47] LABS: Anion Gap 5.8 mmol/L (3-11); BUN 15 mg/dL (7-18); CO2 31.2 mmol/L (21.0-32.0); Calcium 9.3 mg/dL (8.5-10.1); Chloride 98 mmol/L (98-107); Estimated GFR 54.87 (mL/min/1.73m2); Glucose 108 mg/dL (74-106); Potassium 4.7 mmol/L (3.5-5.1); Sodium 135 mmol/L (136-145)
== END 2023-11-19 10:47 | disposition home or self-care (01) ==
LOC: LBN 10:46
PROVIDERS: PCP Nurse Practitioner Family; Visit Provider Nurse Practitioner Family
DX: R10.9 Unspecified abdominal pain (principal); E22.2 Syndrome of inappropriate secretion of antidiuretic hormone; R10.12 Left upper quadrant pain; R30.0 Dysuria
CPT/HCPCS: 80048; 87077; 85025; 87086; 87186

== ENCOUNTER 2023-11-26 02:19 | Outpatient (CLI) | payer MEDICARE, SELFPAY ==
--- NOTE | 2023-11-26 07:15 | DI.CT_ITS ---
Exam(s) CT ABDOMEN PELVIS W EXAM: CT ABDOMEN PELVIS W CLINICAL HISTORY: abd pain,r10.9. TECHNIQUE: Imaging Protocol: Axial computed tomography images with coronal and sagittal reformatted images were created and reviewed CONTRAST MATERIAL: Intravenous: Omnipaque 350 Contrast volume:70 ml Oral: yes / COMPARISON: CT CT ABDOMEN PELVIS W from 02/22/[address] CHEST PE CTA from 04/28/2023 FINDINGS: ABDOMEN and PELVIS: Lung Bases: No acute findings. Liver: Normal density. No suspicious mass. Gallbladder and biliary tract: Status post cholecystectomy. Stable mild biliary dilatation. Pancreas: Normal density. No abnormal calcifications or inflammatory process. No evidence of mass. Spleen: Normal. Kidneys: Normal size, contour and axis. No radiodense stones. No obstructive uropathy. No suspicious masses seen. Adrenal glands: No masses seen. Vasculature: Abdominal aorta non-dilated. Atherosclerotic changes. Soft tissues: Unremarkable. Bladder: Evaluation limited by streak artifact from metallic hardware at pubic symphysis. The bladde r appears empty. Bowel: No obstruction. No bowel wall thickening. Diverticulosis. Appendix normal. Peritoneal cavity: No ascites. No focal collection. No mesenteric inflammatory response. Bones: Hardware noted in pubic symphysis. Reproductive organs: Unremarkable. Lymph nodes: No pathologically enlarged lymph nodes. IMPRESSION:: No acute abnormality in the abdomen or pelvis. RADIATION DOSE DELIVERED: 328.98mGy.cm Total DLP DATA REPOSITORY: All CT scans at this facility are submitted to the National Radiology Data Registry (NRDR) Dose Index Registry (DIR) with the [employer] (ACR). RADIATION OPTIMIZATION: All CT scans at this facility use at least one of these dose optimization te chniques: automated exposure control; mA and/or kV adjustment per patient size (includes targeted exa ms where dose is matched to clinical indication); or iterative reconstruction.
[2023-11-26] MEDS: Barium Sulfate 2% W/V-Berry Smoothie 450 ML BTL PO ×2 (11:07→11:08)
[2023-11-26] MEDS: Omnipaque 350 MG/ML 100 ML BTL IJ (13:10)
[2023-11-26] MEDS: Normal Saline - Diluent 50 ML VIAL IJ (13:11)
== END 2023-11-26 02:39 ==
LOC: DI 02:19
PROVIDERS: PCP Nurse Practitioner Family; Visit Provider Nurse Practitioner Family
DX: R10.9 Unspecified abdominal pain (principal)
CPT/HCPCS: 74177; J3490

== ENCOUNTER 2023-12-17 10:50 | Outpatient (REF) | payer MEDICARE, SELFPAY ==
[2023-12-17 13:44] LABS: Bilirubin Negative (Negative); Blood Negative (Negative); Clarity Sl Cloudy (Clear); Glucose Negative (Negative); Ketones Negative (Negative); Leukocyte Esterase Small (Negative); Nitrite Positive (Negative); Specific Gravity 1.015 (1.005-1.025); pH 6.5 (5-8)
[2023-12-17 13:58] LABS: Bacteria Many HPF (Negative); C & S Indicated? No/Sq. Contamination; Casts Negative LPF (Negative); Crystals Negative HPF (Negative); Epithelial Cells Many HPF (Negative); Mucus Negative (Negative); RBC 0-2 HPF (0-2); WBC >50 HPF (0-5)
== END 2023-12-17 10:51 | disposition home or self-care (01) ==
LOC: LBN 10:50
PROVIDERS: PCP Nurse Practitioner Family; Visit Provider Nurse Practitioner Family
DX: R39.9 Unspecified symptoms and signs involving the genitourinary system (principal)
CPT/HCPCS: 81003; 81015

== ENCOUNTER 2024-01-01 09:46 | Outpatient (CLI) | payer MEDICARE, SELFPAY ==
[2024-01-01 12:29] LABS: Bilirubin Negative (Negative); Blood Negative (Negative); Clarity Clear (Clear); Glucose Negative (Negative); Ketones Negative (Negative); Leukocyte Esterase Trace (Negative); Nitrite Positive (Negative)
[2024-01-01 12:39] LABS: Bacteria Many HPF (Negative); C & S Indicated? Yes; Casts Negative LPF (Negative); Crystals Negative HPF (Negative); Epithelial Cells Rare HPF (Negative); Mucus Trace (Negative); RBC Negative HPF (0-2); WBC 20-50 HPF (0-5)
[2024-01-01 12:47] LABS: Anion Gap 5.9 mmol/L (3-11); BUN 24 mg/dL (7-18); CO2 32.1 mmol/L (21.0-32.0); Calcium 9.1 mg/dL (8.5-10.1); Chloride 102 mmol/L (98-107); Estimated GFR 54.87 (mL/min/1.73m2); Glucose 105 mg/dL (74-106); Potassium 4.8 mmol/L (3.5-5.1); Sodium 140 mmol/L (136-145)
== END 2024-01-01 09:47 | disposition home or self-care (01) ==
LOC: LOS 09:47
PROVIDERS: PCP Nurse Practitioner Family; Referring Provider Nurse Practitioner Family; Visit Provider Nurse Practitioner Family
DX: R53.1 Weakness (principal); R31.9 Hematuria, unspecified
CPT/HCPCS: 36415; 80048; 87077; 81003; 81015; 87086; 87186

== ENCOUNTER 2024-01-15 10:40 | Observation (INO) | payer MEDICARE, SELFPAY ==
[2024-01-15] VITALS (51 sets, daily range): BP systolic 156–197; BP diastolic 62–68; PULSE 62–66; RESP 14–23; TEMP 36.4; O2SAT 95–98
--- NOTE | 2024-01-15 10:45 | RT.EKG_ITS ---
APPROVED REPORT Exam: Resting ECG Reason for Exam: [facility] Patient Location: E HR:59 bpm ECG Measurements Heart Rate 59 AXIS AR 177 P 50 QRSd 70 QRS 69 QT 422 T 56 QTc 419 Conclusion Sinus bradycardia...rate< 60 Left atrial enlargement...P, P'>60mS, <-0.15mV V1 ST elevation, consider inferior injury...ST >0.08mV, II III aVF
[2024-01-15 11:01] LABS: Abs Immature Grans 0.03 10^3/uL (0.0-0.06); Absolute Basophil Count 0.03 10^3/uL (0.0-0.2); Absolute Lymphocyte Count 1.83 10^3/uL (1.2-3.4); Absolute Monocyte Count 0.79 10^3/uL (0.1-0.8); Absolute Neutrophil Count 5.41 10^3/uL (1.2-6.7); Basophils % 0.4 %; Eosinophils % 1.2 %; HCT 38.5 % (36.0-46.0); HGB 12.4 g/dL (11.2-15.7); Immature Grans % 0.4 %; Lymphocytes % 22.3 %; MCH 30.8 pg (27.0-33.0); MCHC 32.2 % (32.0-36.0); MCV 96 fL (80-95); MPV 10.2 fL (8.0-11.0); Monocytes % 9.6 %; Neutrophils % 66.1 %; Platelet Count 160 10^3/uL (130-400); RBC 4.03 10^6/uL (3.93-5.22); RDW 13.7 % (11.7-14.6); RDW-SD 47.8 fL; WBC 8.19 10^3/uL (4.4-10.8)
--- NOTE | 2024-01-15 11:04 | ED.GENADUL_ITS ---
Discharge Plan Disposition Patient Disposition: Admit to [facility] Condition: Serious Discharge Details Clinical Impression: Brain TIA Primary Care Provider: Jason Huff ED Provider: Katia Munguia Home Meds and New Rx's Prescriptions: No Action PreserVision AREDS 4,296 mcg-226 mg-90 mg capsule 1 cap PO BID albuterol sulfate 90 mcg/actuation HFA aerosol inhaler 1 - 2 inh IH Q6H PRN (Reason: shortness of breath or wheezing) Qty: 8.5 6RF ferrous sulfate 325 mg (65 mg iron) tablet,delayed release (DR/EC) 325 mg PO .QOD Qty: 45 4RF metoprolol tartrate 25 mg tablet 25 mg PO BID Qty: 180 3RF Thermotabs 287-180-15 mg tablet 1 tab PO TID polyethylene glycol 3350 [Miralax] 17 gram/dose powder 17 g PO DAILY valacyclovir 1 gram tablet 1,000 mg PO TID Qty: 21 0RF mupirocin calcium 2 % cream 1 applic topical BID Qty: 15 0RF (DME) Aerochamber MV Spacer See Rx Instructions .Route Qty: 1 0RF Rx Instructions: As directed triamcinolone acetonide 0.1 % cream 1 applic topical BID Qty: 15 0RF simvastatin 5 mg tablet 5 mg PO DAILY Qty: 90 3RF estradiol 0.01 % (0.1 mg/gram) cream 1 g vaginal DAILY Qty: 42.5 2RF Rx Instructions: local application daily for one week and then 3 times per week cefpodoxime 200 mg tablet 200 mg PO BID Qty: 28 0RF Rx Instructions: must administer with a meal/food famotidine 20 mg tablet 20 mg PO QHS Qty: 90 3RF Blink Tears 0.25 % drops 1 drp ophthalmic (eye) DAILY HPI General Date/Time Provider Initiated Documentation: 01/15/24 10:43 . HPI Narrative: This 88-year-old female presents with report of alteration of mental status started around 930 this morning. She was at a doctor's appointment for her son and when he came out of the doctor's appointment she was confused and having difficulty with speech and reporting some tingling in her left arm. Patient denies any current complaints but son states that patient is still having some slowed and slurred speech. Patient denies any chest pain shortness of breath, or any current numbness or tingling or weakness in her extremities. She denies any vision change or current headache. She denies any known falls or injuries. She denies any new medications. Related Data Home Medications ?Medication ?Instructions ?Recorded ?Confirmed albuterol sulfate 90 mcg/actuation 1 - 2 inh inhalation Q6H PRN 11/19/22 01/15/24 aerosol inhaler shortness of breath or wheezing #8.5 grams polyethylene glycol 400 0.25 % eye 1 drp ophthalmic (eye) DAILY 03/10/23 01/15/24 drops (Blink Tears) macular degeneration simvastatin 5 mg tablet 5 mg PO DAILY #90 tabs 03/11/23 01/15/24 inhalational spacing device #1 ea 05/21/23 01/15/24 (Aerochamber MV spacer) ferrous sulfate 325 mg (65 mg 325 mg PO .QOD #45 tabs 05/30/23 01/15/24 iron) tablet,delayed release metoprolol tartrate 25 mg tablet 25 mg PO BID #180 tab-caps 05/30/23 01/15/24 polyethylene glycol 3350 17 17 g PO DAILY 06/05/23 01/15/24 gram/dose oral powder (Miralax) sodium chloride-potassium chloride 1 tab PO TID 06/05/23 01/15/24 287 mg-180 mg-15 mg tablet (Thermotabs) vitamins A,C,J-sosj-cymfyc 4,296 1 cap PO BID 09/29/23 01/15/24 mcg-226 mg-90 mg capsule (PreserVision AREDS) triamcinolone acetonide 0.1 % 1 applic topical BID #15 grams 11/19/23 01/15/24 topical cream estradiol 0.01% (0.1 mg/gram) 1 g vaginal DAILY #42.5 grams 12/02/23 01/15/24 vaginal cream mupirocin calcium 2 % topical cream 1 applic topical BID #15 grams 12/04/23 01/15/24 valacyclovir 1 gram tablet 1,000 mg PO TID #21 tabs 12/04/23 01/15/24 cefpodoxime 200 mg tablet 200 mg PO BID #28 tabs 01/02/24 01/15/24 famotidine 20 mg tablet 20 mg PO QHS #90 tabs 01/13/24 01/15/24 Previous Rx's ?Medication ?Instructions ?Recorded albuterol sulfate 90 mcg/actuation 1 - 2 inh inhalation Q6H PRN 11/19/22 aerosol inhaler shortness of breath or wheezing #8.5 grams simvastatin 5 mg tablet 5 mg PO DAILY #90 tabs 03/11/23 inhalational spacing device #1 ea 05/21/23 (Aerochamber MV spacer) ferrous sulfate 325 mg (65 mg 325 mg PO .QOD #45 tabs 05/30/23 iron) tablet,delayed release metoprolol tartrate 25 mg tablet 25 mg PO BID #180 tab-caps 05/30/23 triamcinolone acetonide 0.1 % 1 applic topical BID #15 grams 11/19/23 topical cream estradiol 0.01% (0.1 mg/gram) 1 g vaginal DAILY #42.5 grams 12/02/23 vaginal cream mupirocin calcium 2 % topical cream 1 applic topical BID #15 grams 12/04/23 valacyclovir 1 gram tablet 1,000 mg PO TID #21 tabs 12/04/23 cefpodoxime 200 mg tablet 200 mg PO BID #28 tabs 01/02/24 famotidine 20 mg tablet 20 mg PO QHS #90 tabs 01/13/24 Allergies Allergy/AdvReac Type Severity Reaction Status Date / Time ciprofloxacin (From Cipro) Allergy Intermediate Lips and Verified 01/15/24 10:49 face burn, feels shaky, arm tingly codeine AdvReac Intermediate Dizziness/L Verified 01/15/24 10:49 ightheade lovastatin AdvReac Intermediate myalgias Verified 01/15/24 10:49 oxycodone AdvReac Intermediate NAUSEA, GI Verified 01/15/24 10:49 UPSET azithromycin AdvReac cramping, Verified 01/15/24 10:49 anorexia doxycycline AdvReac Nausea, Verified 01/15/24 10:49 Vomiting hydrocodone AdvReac unknown Verified 01/15/24 10:49 General Stated Complaint: CVA/TIA MELINDA: 3 Exam Narrative Exam Narrative: Female, alert and oriented x 4, oropharynx patent, uvula midline, pupils equal round reactive to light and accommodation, no carotid bruit lungs clear to auscultation, cardiac rate rhythm regular, no abdominal tenderness, alert and oriented x 4, dysphasia/word finding difficulties with slightly slurred speech, maintaining secretions, pupils equal round reactive to light and accommodation, cranial nerves II through XII intact, negative [id number]-rcehto, hide negative heel munguia, nonfocal neurological exam otherwise, negative pronator drift, strength and sensation intact all 4 extremities at time of my assessment no peripheral edema Course Vital Signs Vital signs: Vital Signs Temperature 36.4 C L 01/15/24 10:42 Pulse 66 01/15/24 10:42 Respiratory Rate 16 01/15/24 10:42 Blood Pressure 197/62 H 01/15/24 10:42 Pulse Oximetry 98 01/15/24 10:42 Temperature 36.4 C L 01/15/24 10:42 Pulse 66 01/15/24 10:42 Respiratory Rate 16 01/15/24 10:42 Respiratory Effort Normal 01/15/24 10:48 Blood Pressure 197/62 H 01/15/24 10:42 Pulse Oximetry 98 01/15/24 10:42 Pain Level 0 01/15/24 10:42 Lab/Test Results Lab/Test Results: Laboratory Tests Range/Units 01/15/24 10:46 WBC (4.4-10.8) 10^3/uL 8.19 RBC (3.93-5.22) 10^6/uL 4.03 Hgb (11.2-15.7) g/dL 12.4 Hct (36.0-46.0) % 38.5 MCV (80-95) fL 96 H MCH (27.0-33.0) pg 30.8 MCHC (32.0-36.0) % 32.2 RDW (11.7-14.6) % 13.7 Plt Count (130-400) 10^3/uL 160 MPV (8.0-11.0) fL 10.2 Immature Gran % % 0.4 Neutrophils % % 66.1 Lymphocytes % % 22.3 Monocytes % % 9.6 Eosinophils % % 1.2 Basophils % % 0.4 Nucleated RBC % (0.0-0.3) % 0.0 Absolute Neutrophils (1.2-6.7) 10^3/uL 5.41 Absolute Lymphocytes (1.2-3.4) 10^3/uL 1.83 Absolute Monocytes (0.1-0.8) 10^3/uL 0.79 Absolute Eosinophils (0.0-0.7) 10^3/uL 0.10 Absolute Basophils (0.0-0.2) 10^3/uL 0.03 Medical Decision Making 88-year-old female presenting with speech difficulties with left arm paresthesia and weakness. Patient also endorses mild headache. EMS reports initially she was quite confused with difficulty with speech. Glucose was 85 in the field. EMS states that symptoms rapidly began resolving en route to the hospital. At time of my assessment patient is still experiencing some word finding difficulties but has an otherwise nonfocal neurological exam. She did have CTA head and neck and chest x-ray, both of which did not show acute pathology per radiology interpretation my review. Teleneuro consult was performed and neurologist feels patient likely had a TIA and does not feel patient is a tPA candidate as her symptoms have rapidly improved. On initial assessment NIH 1. Swallow study was performed and aspirin 325 was administered in addition to 80 mg of Lipitor. Patient was able to pass swallow study prior to administration of these medications. I spoke with the teleneurologist and he did not recommend Plavix at this time. He also recommended MRI of patient's brain. At this time he recommends 24-hour admission for observation. Patient is agreeable to admission at this time. Diagnostic labs do not show significant acute abnormality. At this time patient agreeable to admission, case discussed with admitting hospitalist. Quality:SDOH Health Related Social Needs: No Data to Display PFSH All Active Problems (Updated 01/15/24 @ 15:20 by FADIA Arreguin) Brain TIA (Acute) CVA (cerebral vascular accident) (Chronic) Shingles (Acute) Recurrent pneumonia (Acute) Frailty syndrome in geriatric patient (Acute) Advanced care planning/counseling discussion (Acute) Palliative care patient (Acute) Palliative care is happy to urgently consult on this patient in ED and help with decisions needed at the time if staffing available. Urinary incontinence (Acute) SIADH (syndrome of inappropriate ADH production) (Chronic) Generalized weakness (Acute) Constipation (Acute) Dysuria (Acute) LUQ abdominal pain (Acute) Serrated adenoma of colon (Acute ~07/18/22) Neck pain on right side (Acute) Perforated diverticulum (Chronic) Dermatitis (Acute) Vaginitis, atrophic (Acute) Hyponatremia (Chronic) Multiple occasions last of which was 01/2021, 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) Erosive gastritis (Chronic) DNR (do not resuscitate) (Chronic) Also DNI, POLST form per [facility] Medical History Acute electrocardiogram changes Hypertensive urgency Fall Toxic metabolic encephalopathy Acute hyponatremia AMS (altered mental status) Dehydration Pancreatitis Hyponatremia Gastritis Urinary tract infection Abdominal pain Sore in nose Hyponatremia Complicated UTI (urinary tract infection) H/O sigmoidoscopy (~07/18/22) New daily persistent headache wakes up with, gone by noon, pain radiates to right side of neck RUQ abdominal pain Hypomagnesemia Epigastric pain Macular degeneration Hx of fracture of pelvis pt. 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 intestinal meta. or dysplasia Family history of GI malignancy Essential hypertension (01/14/13) Depressive disorder Atrophic vaginitis (08/19/11) Pt. states she is unsure [place]; rib fracture; lacerated liver; fx-pelvis; perf. intestine Family history of GI malignancy Surgical History KNEE SURGERY (~05/2012) Abdominal hysterectomy EGD - MAC (04/22/17) Colonoscopy - MAC (04/22/17) Colonoscopy - MAC (~02/2012) Cholecystectomy Bladder Surgery Bilateral salpingectomy with oophorectomy Arthroplasty of knee (05/27/12) LEFT - Pt denies knee replacement Family History Mother , AGE 84 Heart disease Father , AGE 87 Stroke Heart disease Cancer Sister Stroke Brother Alcohol abuse Cancer Brother Cancer of kidney Son Hyperlipidemia Pulmonary disease Daughter Thyroid disease Daughter Cancer s/p hysterectomy Daughter No problems noted. Daughter No problems noted. Brother No problems noted. Maternal Grandfather No problems noted. Paternal Grandfather No problems noted. Maternal Grandmother No problems noted. Paternal Grandfather No problems noted. Social History Smoking/Tobacco Use Status: Former Tobacco Use tobacco type: cigarettes Quit Date: 03/17/97 Second Hand Exposure: Yes Smoking risk assessment performed?: Yes Alcohol Intake: never Drug use: Never Substance use type: does not use Adopted: No Caregiver/Support person: Yes (both boxes checked) Housing: house Number of Children: 5 Communication Needs: Hard of Hearing and Corrective Lenses Education Level: high school Do you need help understanding health information?: Always current occupation: none Pets and animals: No Sexually active: No Do you think of yourself as: straight/heterosexual Current gender identity: female What is your relationship status?: How often do you talk on the phone with friends or family?: decline to answer How often do you get together with friends or relatives?: decline to answer How often do you attend religious or alevism services?: decline to answer Do you belong to any clubs or organized social groups?: no Panel score (0-1 are the most socially isolated patients): 0 What type of physical activity do you participate in: walking Carri/Temple: No preference Special carri needs: No Seatbelt use: always Helmet use: No Drive intox 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 service parts driver: No Firearms in home: No In current or past relationships, have you been: made to feel afraid Do you feel safe at home: Yes
[2024-01-15] MEDS: Normal Saline - Diluent 50 ML VIAL IJ (11:11)
[2024-01-15] MEDS: Omnipaque 350 MG/ML 500 ML BTL-Imaging package 85 ML IJ (11:12)
[2024-01-15 11:18] LABS: PTT Activated 25.9 sec (23.6-32.8)
[2024-01-15 11:21] LABS: ALT 32 U/L (14-59); AST 29 U/L (15-37); Albumin 3.4 g/dL (3.4-5.0); Alkaline Phosphatase 98 U/L (46-116); BUN 19 mg/dL (7-18); Bilirubin, Total 0.47 mg/dL (0.2-1.0); CREATININE 0.9 mg/dL (0.55-1.02); Chloride 100 mmol/L (98-107); Estimated GFR 62.26 (mL/min/1.73m2); Glucose 85 mg/dL (74-106); Potassium 4.6 mmol/L (3.5-5.1); Sodium 138 mmol/L (136-145); Total Protein 7.1 g/dL (6.4-8.2); Troponin I 4 ng/L (<or=51)
--- NOTE | 2024-01-15 11:40 | DI.CT_ITS ---
Exam(s) CT BRAIN NECK CTA EXAM: CT BRAIN NECK CTA CLINICAL HISTORY: left arm tingling, ams, dysphasia. TECHNIQUE: Imaging Protocol: Axial CT angiography was performed with multi-slice acquisition and mu lti-planar and MIP reconstructions. CONTRAST MATERIAL: Intravenous: Omnipaque 350 Contrast volume:85 ml COMPARISON: CT CT BRAIN NECK CTA from 09/12/[address] HEAD WO from 03/09/2023 FINDINGS: CT Head W/O and W contrast: Ventricles and Extra axial spaces: Normal in size and morphology for the patient's age. Hemorrhage: None. Cerebral parenchyma: No evidence of acute infarct or mass. White matter changes consistent with ch ronic microvascular disease, similar to prior. Midline shift: None. Brainstem/Cerebellum: No acute findings.. Calvarium: Normal. Visualized Paranasal sinuses/Mastoids: Clear. Soft Tissues: Unremarkable. Enhancement: Normal. CTA Brain W: Internal Carotid Arteries: Petrous: Normal. Cavernous: Normal. Cerebral: Normal. Middle Cerebral Arteries: Right: No aneurysm, occlusion or significant stenosis. Left: No aneurysm, occlusion or significant stenosis. Anterior Cerebral Arteries: Right: No aneurysm, occlusion or significant stenosis. Left: No aneurysm, occlusion or significant stenosis. Posterior cerebral Arteries: Right: No aneurysm, occlusion or significant stenosis. Left: No aneurysm, occlusion or significant stenosis. Vertebral Arteries: Right: No aneurysm, occlusion or significant stenosis. Left: No aneurysm, occlusion or significant stenosis. Basilar Artery: No aneurysm, occlusion or significant stenosis. CTA Neck W: Common Carotid: Right: No dissection, occlusion or significant stenosis. Left: No dissection, occlusion or significant stenosis. External Carotid: Right: No dissection, occlusion or significant stenosis. Left: No dissection, occlusion or significant stenosis. Internal Carotid: Right: Focal calcific plaque at the bulb. No dissection, occlusion or significant stenosis. Distal tortuosity. Left: Focal calcific plaque at the origin of the internal and external carotid arteries the mild-to-m oderate stenosis, unchanged from prior.. No dissection, occlusion. Distal tortuosity. Vertebral Artery: Right: No dissection, occlusion or significant stenosis. Left: No dissection, occlusion or significant stenosis. Lung Apices: Left upper lobe scarring again noted. Apical pleural thickening. Bones: Severe degenerative changes in the cervical spine again noted. There is narrowing of the AP d imension of the central canal at C1-2 and at C4-5 and C5-6. Soft Tissues: Normal. IMPRESSION: 1. CTA brain: Normal CTA examination of the [place]. 2. Head CT: Stable white matter changes of microvascular disease. No acute infarct or hemorrhage vis ible. 3. CTA neck: At the origins of the internal carotid arteries. No significant stenosis on the right. Yebx-hi-bhlluhze stenosis, less than 50 percent, on the left. RADIATION DOSE DELIVERED: 2,147.68mGy.cm Total DLP DATA REPOSITORY: All CT scans at this facility are submitted to the National Radiology Data Registry (NRDR) Dose Index Registry (DIR) with the [employer] (ACR). RADIATION OPTIMIZATION: All CT scans at this facility use at least one of these dose optimization te chniques: automated exposure control; mA and/or kV adjustment per patient size (includes targeted exa ms where dose is matched to clinical indication); or iterative reconstruction.
--- NOTE | 2024-01-15 11:51 | DI.RAD_ITS ---
Exam(s) XR CHEST 1V IN DI DEPT EXAM: XR CHEST 1V IN DI DEPT CLINICAL HISTORY: ams TECHNIQUE: 2D digital imaging was performed. COMPARISON: CR XR CHEST 2V PA LATERAL from 05/21/2023 FINDINGS: Overlying monitoring leads. LUNGS: Fibrotic changes. No visible infiltrate. No pleural abnormality seen. HEART: Normal size. AORTA: Normal diameter. BONES: Unremarkable for age. Soft tissues: Unremarkable. IMPRESSION: No acute findings. DATA REPOSITORY: RADIATION DOSE DELIVERED:
[2024-01-15 11:54] LABS: Bilirubin Negative (Negative); Blood Negative (Negative); Clarity Clear (Clear); Glucose Negative (Negative); Ketones Negative (Negative); Leukocyte Esterase Negative (Negative); Nitrite Negative (Negative); Specific Gravity 1.015 (1.005-1.025); Urobilinogen 0.2 mg/dL (Up to 0.2)
[2024-01-15 12:25] LABS: Troponin I 6 ng/L (<or=51)
--- NOTE | 2024-01-15 13:00 | DI.MRI_ITS ---
Exam(s) MR BRAIN WO EXAM: MR BRAIN WO CLINICAL HISTORY: left sided paresthesias, dysphasia, arthria TECHNIQUE: Multiplanar multisequence MRI of the brain was performed. COMPARISON: CT CT BRAIN NECK CTA from 01/15/2024 FINDINGS: VENTRICLES AND EXTRA AXIAL SPACES: Normal in size and morphology for the patient's age. MIDLINE SHIFT: None. CEREBRAL PARENCHYMA: No focus of restricted diffusion to suggest acute infarct. No space-occupying le jayne identified. Mild atrophy consistent with the patient's age. Moderate scattered foci of high sig nal in the white matter consistent with sequela of chronic microvascular disease. BRAINSTEM/CEREBELLUM: Normal. VISUALIZED PARANASAL SINUSES: Clear. MASTOIDS:Clear. Vasculature: Normal flow void. PITUITARY GLAND: Unremarkable. ORBITS: Unremarkable. IMPRESSION: No acute abnormality. White matter changes of small vessel disease. DATA REPOSITORY:
[2024-01-15 13:34] LABS: Calculated LDL 93 mg/dL (<100); Cholesterol 163 mg/dL (<200); HDL Cholesterol 64 mg/dL (40-60); Triglyceride 34 mg/dL (<150)
[2024-01-15] MEDS: Aspirin 325 MG TAB PO (13:42)
--- NOTE | 2024-01-15 14:36 | HPE_ITS ---
Date of service: 01/15/24 Time of Service: 14:36 Assessment and Plan Assessment and plan (1) CVA (cerebral vascular accident): Status: Chronic Assessment and plan: Head CT was negative and head neck CTA without any significant findings As per teleneuro recommendation MRI was completed without any acute abnormalities found Will complete an echo with bubble study in the morning The patient is on increased dose of Lipitor to 40 mg daily; was having myalgia with lovastatin and was on simvastatin 5 mg at home No recommendation for aspirin will continue with aspirin 81 mg daily No recommendation for Plavix Patient will be on telemetry Neurocheck every 4 hours Will hold antihypertensive medicine for permissive hypertension CBC in AM (2) Constipation: Status: Acute Assessment and plan: On on medicine regimen (3) 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 Newsome History of Present Illness History of Present Illness Chief Complaint: Speech disturbance Narrative: This 88-year-old female patient with a past medical history of recent shingles, recurrent pneumonia, SIADH, GERD with gastritis, pancreatitis, hypertension, presented to the ED at [facility], [place] today status post visit at [facility] with son where she started to exhibit neurological symptoms thought to be strokelike by nursing staff. On arrival to the ED the patient still displayed speech disturbance but was improving. Workup in the ED was significant for a head CT that was negative for acute injury and a negative CT of her neck. Blood work was unremarkable. Teleneurology consult with [facility] recommended aspirin, no Plavix, and MRI. The hospitalist was consulted and the patient will be admitted for observation to the medical surgical floor for CVA, speech disturbance,. Echo with bubble study is also usually recommended and will also be ordered. Patient has a history of a POLST form where she is DNR/DNI. This was confirmed with the patient when seen. The patient reported having fifth digit of her left hand and slowly going up or arm this morning and this has resolved. The patient mentioned that sometimes she forgets a word when she speaks which is not new and related to Alzheimer's . The patient denied headache, change in vision, dizziness, fever, chest pain, vomiting, diarrhea, or dysuria. Patient reported slight nausea this morning which has resolved. Patient also reported chills but stated that she is always cold. Patient requesting MiraLAX to maintain bowel regularity as it has been missed today. Patient also reported a past history of black stool which were never tested for blood but none recently. Review of Systems All systems reviewed & are unremarkable except as noted in HPI and below PFSH All Active Problems Brain TIA (Acute) CVA (cerebral vascular accident) (Chronic) Shingles (Acute) Recurrent pneumonia (Acute) Frailty syndrome in geriatric patient (Acute) Advanced care planning/counseling discussion (Acute) Palliative care patient (Acute) Palliative care is happy to urgently consult on this patient in ED and help with decisions needed at the time if staffing available. Urinary incontinence (Acute) SIADH (syndrome of inappropriate ADH production) (Chronic) Generalized weakness (Acute) Constipation (Acute) Dysuria (Acute) LUQ abdominal pain (Acute) Serrated adenoma of colon (Acute ~07/18/22) Neck pain on right side (Acute) Perforated diverticulum (Chronic) Dermatitis (Acute) Vaginitis, atrophic (Acute) Hyponatremia (Chronic) Multiple occasions last of which was 01/2021, 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 Elevated urine sodium with episode of hyponatremia evaluated at 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) Erosive gastritis (Chronic) DNR (do not resuscitate) (Chronic) Also DNI, POLST form per [facility] Medical History Acute electrocardiogram changes Hypertensive urgency Fall Toxic metabolic encephalopathy Acute hyponatremia AMS (altered mental status) Dehydration Pancreatitis Hyponatremia Gastritis Urinary tract infection Abdominal pain Sore in nose Hyponatremia Complicated UTI (urinary tract infection) H/O sigmoidoscopy (~07/18/22) New daily persistent headache wakes up with, gone by noon, pain radiates to right side of neck RUQ abdominal pain Hypomagnesemia Epigastric pain Macular degeneration Hx of fracture of pelvis pt. 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 intestinal meta. or dysplasia Family history of GI malignancy Essential hypertension (01/14/13) Depressive disorder Atrophic vaginitis (08/19/11) Pt. states she is unsure [place]; rib fracture; lacerated liver; fx-pelvis; perf. intestine Family history of GI malignancy Surgical History KNEE SURGERY (~05/2012) Abdominal hysterectomy EGD - MAC (04/22/17) Colonoscopy - MAC (04/22/17) Colonoscopy - MAC (~02/2012) Cholecystectomy Bladder Surgery Bilateral salpingectomy with oophorectomy Arthroplasty of knee (05/27/12) LEFT - Pt denies knee replacement Family History Mother , AGE 84 Heart disease Father , AGE 87 Stroke Heart disease Cancer Sister Stroke Brother Alcohol abuse Cancer Brother Cancer of kidney Son Hyperlipidemia Pulmonary disease Daughter Thyroid disease Daughter Cancer s/p hysterectomy Daughter No problems noted. Daughter No problems noted. Brother No problems noted. Maternal Grandfather No problems noted. Paternal Grandfather No problems noted. Maternal Grandmother No problems noted. Paternal Grandfather No problems noted. Social History Smoking/Tobacco Use Status: Former Tobacco Use tobacco type: cigarettes Quit Date: 03/17/97 Second Hand Exposure: Yes Smoking risk assessment performed?: Yes Alcohol Intake: never Drug use: Never Substance use type: does not use Adopted: No Caregiver/Support person: Yes (both boxes checked) Housing: house Number of Children: 5 Communication Needs: Hard of Hearing and Corrective Lenses Education Level: high school Do you need help understanding health information?: Always current occupation: none Pets and animals: No Sexually active: No Do you think of yourself as: straight/heterosexual Current gender identity: female What is your relationship status?: How often do you talk on the phone with friends or family?: decline to answer How often do you get together with friends or relatives?: decline to answer How often do you attend jehovah's witness or scientology services?: decline to answer Do you belong to any clubs or organized social groups?: no Panel score (0-1 are the most socially isolated patients): 0 What type of physical activity do you participate in: walking Carri/Lutheran: No preference Special carri needs: No Seatbelt use: always Helmet use: No Drive intox 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 dedicated regional driver: No Firearms in home: No In current or past relationships, have you been: made to feel afraid Do you feel safe at home: Yes Meds Allergies and Home Medications Allergies Allergy/AdvReac Type Severity Reaction Status Date / Time ciprofloxacin (From Cipro) Allergy Intermediate Lips and Verified 01/15/24 10:49 face burn, feels shaky, arm tingly codeine AdvReac Intermediate Dizziness/L Verified 01/15/24 10:49 ightheade lovastatin AdvReac Intermediate myalgias Verified 01/15/24 10:49 oxycodone AdvReac Intermediate NAUSEA, GI Verified 01/15/24 10:49 UPSET azithromycin AdvReac cramping, Verified 01/15/24 10:49 anorexia doxycycline AdvReac Nausea, Verified 01/15/24 10:49 Vomiting hydrocodone AdvReac unknown Verified 01/15/24 10:49 Home Medications ?Medication ?Instructions ?Recorded ?Confirmed ?Type albuterol sulfate 90 mcg/actuation 1 - 2 inh inhalation Q6H PRN 11/19/22 01/15/24 Rx aerosol inhaler shortness of breath or wheezing #8.5 grams polyethylene glycol 400 0.25 % eye 1 drp ophthalmic (eye) DAILY 03/10/23 01/15/24 History drops (Blink Tears) macular degeneration simvastatin 5 mg tablet 5 mg PO DAILY #90 tabs 03/11/23 01/15/24 Rx inhalational spacing device #1 ea 05/21/23 01/15/24 Rx (Aerochamber MV spacer) ferrous sulfate 325 mg (65 mg 325 mg PO .QOD #45 tabs 05/30/23 01/15/24 Rx iron) tablet,delayed release metoprolol tartrate 25 mg tablet 25 mg PO BID #180 tab-caps 05/30/23 01/15/24 Rx polyethylene glycol 3350 17 17 g PO DAILY 06/05/23 01/15/24 History gram/dose oral powder (Miralax) sodium chloride-potassium chloride 1 tab PO TID 06/05/23 01/15/24 History 287 mg-180 mg-15 mg tablet (Thermotabs) vitamins A,C,I-lsqw-cqvcww 4,296 1 cap PO BID 09/29/23 01/15/24 History mcg-226 mg-90 mg capsule (PreserVision AREDS) triamcinolone acetonide 0.1 % 1 applic topical BID #15 grams 11/19/23 01/15/24 Rx topical cream estradiol 0.01% (0.1 mg/gram) 1 g vaginal DAILY #42.5 grams 12/02/23 01/15/24 Rx vaginal cream mupirocin calcium 2 % topical cream 1 applic topical BID #15 grams 12/04/23 01/15/24 Rx valacyclovir 1 gram tablet 1,000 mg PO TID #21 tabs 12/04/23 01/15/24 Rx cefpodoxime 200 mg tablet 200 mg PO BID #28 tabs 01/02/24 01/15/24 Rx famotidine 20 mg tablet 20 mg PO QHS #90 tabs 01/13/24 01/15/24 Rx Exam Narrative Exam Narrative: Constitutional The patient on stretcher comfortable and cooperative during the interview. The patient is well groomed without acute distress HENMT: Head is atraumatic, normocephalic, no lymphadenopathy. Facial structures with normal appearance Eyes: Well aligned, intact ROM Neck: Normal ROM, no meningeal signs Neuro:alert and oriented to self, person, place, time and situation. Cranial nerve II to XII intact. No neurological focal deficit Chest:Chest is symmetrical and normal appearance Resp: Normal respiratory pattern, speaks in full sentences, unlabored breathing, clear lung bilaterally with dimished bases Cardio: regular rhythm, S1, S2, no murmur, bilateral radial and dorsalis pedis pulses are positive, palpable GI: Abdomen is not distended, soft and non tender, bowel sounds are present : Negative Costovertebral angle tenderness, Back/spine/Pelvis: No back tenderness, normal alignment Integumentary: No skin lesions or rash on exposed skin Extremities: strength 5/5 to bilateral lower and upper extremities Psych: RASS 0, congruent mood and normal affect. Results Labs 01/15/24 10:46 01/15/24 10:46 Labs: Laboratory Results - last 24 hr 01/15/24 01/15/24 01/15/24 10:46 11:49 12:00 WBC 8.19 RBC 4.03 Hgb 12.4 Hct 38.5 MCV 96 H MCH 30.8 MCHC 32.2 RDW 13.7 Plt Count 160 MPV 10.2 Immature Gran % 0.4 Neutrophils % 66.1 Lymphocytes % 22.3 Monocytes % 9.6 Eosinophils % 1.2 Basophils % 0.4 Nucleated RBC % 0.0 Absolute Neutrophils 5.41 Absolute Lymphocytes 1.83 Absolute Monocytes 0.79 Absolute Eosinophils 0.10 Absolute Basophils 0.03 APTT 25.9 Sodium 138 Potassium 4.6 Chloride 100 Carbon Dioxide 33.0 H Anion Gap 5.0 BUN 19 H Creatinine 0.9 Est GFR (CKD-EPI 2020) 62.26 Glucose 85 Calcium 9.0 Magnesium 2.0 Total Bilirubin 0.47 AST 29 ALT 32 Alkaline Phosphatase 98 Troponin I 4 6 Total Protein 7.1 Albumin 3.4 Triglycerides 34 Total Cholesterol 163 LDL Cholesterol, Calc 93 HDL Cholesterol 64 Urine Color Yellow Urine Clarity Clear Urine pH 7.0 Ur Specific [place] 1.015 Urine Protein Negative Urine Ketones Negative Urine Blood Negative Urine Nitrite Negative Urine Bilirubin Negative Urine Urobilinogen 0.2 Ur Leukocyte Esterase Negative Urine Glucose Negative Last Vital Signs Temp 36.4 C L 01/15/24 10:42 Pulse 66 01/15/24 10:42 Resp 16 01/15/24 10:42 BP 197/62 H 01/15/24 10:42 Pulse Ox 98 01/15/24 10:42 Time Spent Time spent with Patient: >75 minutes Time was spent: preparing to see the patient(eg.review tests), obtaining and/or reviewing separately otained hiistory, ordering medications,tests, procedures, referring, communicating with other health hourly caregiver, indepentently interpreting results, counseling the patient and care coordination
[2024-01-15 14:40] LABS: Troponin I 6 ng/L (<or=51)
[2024-01-15 17:03] LABS: Hemoglobin A1C 5.8 % (<5.7)
[2024-01-16 04:07] VITALS: BP 162/62; PULSE 84; RESP 17; TEMP 37.1; O2SAT 94
[2024-01-16] MEDS: Pantoprazole 40 MG TABCR PO (04:46)
[2024-01-16 07:17] VITALS: BP 142/66; PULSE 80; RESP 16; TEMP 36.7; O2SAT 94
[2024-01-16] MEDS: Salt Supplement (BUFFERED) TAB 1 TAB PO (08:03)
[2024-01-16] MEDS: Refresh PLUS Eye Drops 0.4ml OP (08:04)
[2024-01-16] MEDS: Simvastatin 40 MG TAB PO (08:05)
[2024-01-16] MEDS: Ferrous Sulfate 325 MG TAB PO (08:05)
[2024-01-16] MEDS: Enoxaparin 40 MG/0.4 ML SYR SC (08:07)
[2024-01-16 08:40] LABS: Abs Immature Grans 0.02 10^3/uL (0.0-0.06); Absolute Basophil Count 0.03 10^3/uL (0.0-0.2); Absolute Eosinophil Count 0.03 10^3/uL (0.0-0.7); Absolute Monocyte Count 0.55 10^3/uL (0.1-0.8); Absolute Neutrophil Count 5.39 10^3/uL (1.2-6.7); Basophils % 0.4 %; Eosinophils % 0.4 %; HCT 38.7 % (36.0-46.0); HGB 12.9 g/dL (11.2-15.7); Immature Grans % 0.3 %; Lymphocytes % 18.9 %; MCH 30.7 pg (27.0-33.0); MCHC 33.3 % (32.0-36.0); MCV 92 fL (80-95); MPV 10.2 fL (8.0-11.0); Monocytes % 7.4 %; Neutrophils % 72.6 %; Platelet Count 164 10^3/uL (130-400); RDW 13.5 % (11.7-14.6); WBC 7.42 10^3/uL (4.4-10.8)
[2024-01-16 08:50] LABS: Anion Gap 7.3 mmol/L (3-11); BUN 21 mg/dL (7-18); CO2 29.7 mmol/L (21.0-32.0); Calcium 9.3 mg/dL (8.5-10.1); Chloride 97 mmol/L (98-107); Estimated GFR 54.87 (mL/min/1.73m2); Glucose 109 mg/dL (74-106); Potassium 4.7 mmol/L (3.5-5.1); Sodium 134 mmol/L (136-145)
--- NOTE | 2024-01-16 09:16 | PDOC.CMIN ---
Date of service: 01/16/24 Time of Service: 09:16 Care Management Initial Assmt Initial Assessment Reason for Hospitalization: CVA Functional Status/Living Situation Town of Residence: [place] Resides with: Child (lives with her son) Significant Other/Family: Local Employment Status: Retired Medications Medication Management: No Issues/Barriers identified Advance Directives Advance Directives: Do you have an Advance Directive: Y 07/03/22 14:53 AD On File at [facility]: N 07/03/22 14:53 Date Asked 01/15/24 01/15/24 11:13 AD Date Reviewed COLST On File at [facility] Yes 07/03/22 14:53 COLST Date Scanned 03/20/23 03/20/23 13:47 Code Status Resuscitation Status DNR/DNI Portal Pt does not currently have a portal and education provided: No Insurance Coverage/Financial Issues Insurance: medicare [employer] Senior supplement Care Team Visit Care Team Role Provider Type Jason Busby NP Primary Care Provider NURSE PRACTITIONER Sweetie Vail, ELECTROMYOGRAPHIC TECHNICIAN Other Providers SPEECH LANGUAGE PATHOLOGIST William Mota, ELECTROMYOGRAPHIC TECHNICIAN Other Providers SPEECH LANGUAGE PATHOLOGIST Sandra Delatorre Other Providers SPEECH LANGUAGE PATHOLOGIST Yeny England, ELECTROMYOGRAPHIC TECHNICIAN Other Providers SPEECH LANGUAGE PATHOLOGIST Leann Philip, ELECTROMYOGRAPHIC TECHNICIAN Other Providers SPEECH LANGUAGE PATHOLOGIST Elva Concepcion Other Providers OTHER [facility] Provider PHYSICIANS ASSISTANT Andres Newsome Admit Provider NON-[facility] STAFF PHYSICIAN Attending Provider Discharge Potential Discharge Needs: PCP F/U Appt Anticipated Barriers to Discharge: None Identified Patient/Family Education Needs: Review discharge instructions, discuss Ask Me Three Transportation: Private vehicle Plan: Anticipate Cathy will be discharged home with a resumption of home health services when medically cleared. She will follow up with her PCP and plan of care and transport with her son. CM will follow and continue to assess for discharge needs. PFSH All Active Problems Brain TIA (Acute) CVA (cerebral vascular accident) (Chronic) Shingles (Acute) Recurrent pneumonia (Acute) Frailty syndrome in geriatric patient (Acute) Advanced care planning/counseling discussion (Acute) Palliative care patient (Acute) Palliative care is happy to urgently consult on this patient in ED and help with decisions needed at the time if staffing available. Urinary incontinence (Acute) SIADH (syndrome of inappropriate ADH production) (Chronic) Generalized weakness (Acute) Constipation (Acute) Dysuria (Acute) LUQ abdominal pain (Acute) Serrated adenoma of colon (Acute ~07/18/22) Neck pain on right side (Acute) Perforated diverticulum (Chronic) Dermatitis (Acute) Vaginitis, atrophic (Acute) Hyponatremia (Chronic) Multiple occasions last of which was 01/2021, 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 Elevated urine sodium with episode of hyponatremia evaluated at [facility] 2019 Anemia (Chronic) Pulmonary nodules (Chronic) GERD with esophagitis (Chronic) Sherwood's esophagus determined by biopsy (Chronic) Erosive gastritis (Chronic) DNR (do not resuscitate) (Chronic) Also DNI, POLST form per [facility] Medical History Acute electrocardiogram changes Hypertensive urgency Fall Toxic metabolic encephalopathy Acute hyponatremia AMS (altered mental status) Dehydration Pancreatitis Hyponatremia Gastritis Urinary tract infection Abdominal pain Sore in nose Hyponatremia Complicated UTI (urinary tract infection) H/O sigmoidoscopy (~07/18/22) New daily persistent headache wakes up with, gone by noon, pain radiates to right side of neck RUQ abdominal pain Hypomagnesemia Epigastric pain Macular degeneration Hx of fracture of pelvis pt. 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 intestinal meta. or dysplasia Family history of GI malignancy Essential hypertension (01/14/13) Depressive disorder Atrophic vaginitis (08/19/11) Pt. states she is unsure [place]; rib fracture; lacerated liver; fx-pelvis; perf. intestine Family history of GI malignancy Surgical History KNEE SURGERY (~05/2012) Abdominal hysterectomy EGD - MAC (04/22/17) Colonoscopy - MAC (04/22/17) Colonoscopy - MAC (~02/2012) Cholecystectomy Bladder Surgery Bilateral salpingectomy with oophorectomy Arthroplasty of knee (05/27/12) LEFT - Pt denies knee replacement Family History Mother , AGE 84 Heart disease Father , AGE 87 Stroke Heart disease Cancer Sister Stroke Brother Alcohol abuse Cancer Brother Cancer of kidney Son Hyperlipidemia Pulmonary disease Daughter Thyroid disease Daughter Cancer s/p hysterectomy Daughter No problems noted. Daughter No problems noted. Brother No problems noted. Maternal Grandfather No problems noted. Paternal Grandfather No problems noted. Maternal Grandmother No problems noted. Paternal Grandfather No problems noted. Social History Smoking/Tobacco Use Status: Former Tobacco Use tobacco type: cigarettes Quit Date: 03/17/97 Second Hand Exposure: Yes Smoking risk assessment performed?: Yes Alcohol Intake: never Drug use: Never Substance use type: does not use Adopted: No Caregiver/Support person: Yes (both boxes checked) Housing: house Number of Children: 5 Communication Needs: Hard of Hearing and Corrective Lenses Education Level: high school Do you need help understanding health information?: Always current occupation: none Pets and animals: No Sexually active: No Do you think of yourself as: straight/heterosexual Current gender identity: female What is your relationship status?: How often do you talk on the phone with friends or family?: decline to answer How often do you get together with friends or relatives?: decline to answer How often do you attend uatsdin or spiritism services?: decline to answer Do you belong to any clubs or organized social groups?: no Panel score (0-1 are the most socially isolated patients): 0 What type of physical activity do you participate in: walking Carri/Holiness: No preference Special carri needs: No Seatbelt use: always Helmet use: No Drive intox 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 spike driver: No Firearms in home: No In current or past relationships, have you been: made to feel afraid Do you feel safe at home: Yes Readmission Within the Past 30 Days Yes or No: No
--- NOTE | 2024-01-16 09:30 | DI.US_ITS ---
APPROVED REPORT EXAM: Comprehensive 2D, Doppler, and color-flow Echocardiogram Patient Location: ER Room/Bed: 6 Inventory Worker: Billy Pabon RDCS (AE) Indications: CVA, r/o shunt Echo Enhancing Agent Indication: Rule out Shunt Agent(s) / Amount(s) Used: Agitated Saline 30.0 cc Comments: Contrast study was performed with 3 IV injections of 10ccs of agitated normal saline, at st, with cough and post valsalva maneuver. Negative contrast study for shunt flow. Conclusion Normal left ventricular wall thickness and chamber size. Ejection fraction is 60%. Wall motion is n ormal Normal right ventricular size and function Both atria are normal in size No intracardiac shunting is identified with injection of agitated saline Aortic valve is trileaflet and sclerotic with trace regurgitation Estimated right ventricular systolic pressure is 31 mmHg Wall motion Left Ventricle Left ventricular cavity is small. The left ventricular systolic function is normal. The left ventricu lar ejection fraction is within the normal range. There is normal left ventricular wall thickness. Th ere is normal LV segmental wall motion. There is no ventricular septal defect visualized. LVEF is 60% . Right Ventricle The right ventricle is normal size. The right ventricular systolic function is normal. Atria Left atrium is mildly dilated. Right atrium is mildly dilated. The interatrial septum is intact with no evidence for an atrial septal defect. Saline bubble contrast intravenous injection does not demons trate PFO. Aortic Valve The Aortic valve is sclerotic. There is no aortic valvular stenosis. Trace aortic regurgitation. Mitral Valve The mitral valve is normal in structure. No evidence of mitral valve stenosis. Trace mitral regurgita tion. Tricuspid Valve The tricuspid valve is normal in structure. There is no tricuspid valve stenosis. Trace to mild tricu spid regurgitation. The RVSP is 31.2 mmHg. Pulmonic Valve The pulmonary valve is normal in structure. There is no pulmonic valvular stenosis. Mild pulmonic reg urgitation. Great Vessels The aortic root is normal in size. The ascending aorta is normal in size. Aortic arch is not well vis ualized. IVC is normal in size and collapses >50% with inspiration. Pericardium There is no pericardial effusion. 2D Dimensions IVSD d PLAX 0.80 cm F: 0.6-1.0 Ao Root d 2.87 cm F: 2.7 - 3.3 LVPW d PLAX 0.81 cm F: 0.6 - 1.0 Ao Asc Diam d 3.08 cm F: 2.3 - 3.1 LVID d PLAX 3.42 cm F: 3.8 - 5.2 LVDs 2.41 cm F: 2.2 - 3.5 LV EF Teichholz 57.4 % FS 29.38 % LV EDV (Teich) 48.1 mL LV ESV (Teich) 20.5 mL Stroke Vol Index (Teich) 18.16 M-Mode TAPSE 1.80 cm (M/F) >1.7 Auto EF LV EDV A4C 73.2 mL LV EDV A2C 56.0 mL LV EDV BP 64.7 mL LV ESV A4C 31.7 mL LV ESV A2C 21.1 mL LV ESV BP 25.6 mL LVEF(%) A4C 56.7 % LVEF(%) A2C 62.4 % LVEF(%) BP 60.5 % LV SV A4C 41.5 ml LV SV A2C 34.9 ml LV SV BP 39.2 ml LV CO A4C 3.1 L/min LV CO A2C 2.6 L/min LV CO BP 2.8 L/min HR A4C 74.23 BPM HR A2C 73.03 BPM LV EDV Index (BP) RA Volume RA Area A4C 12.9 cm2 RA ESV A4C (A-L) 31.4mL RA Vol/BSA A4C A-L RA Length A4C 4.5 cm RA ESV A4C (MOD) 29.3mL LV Diastology MV E' medial 0.073 (>0.07 m/s) MV E Vmax 0.76 (0.4-1.3 m/s) MV E/E' MED 10.42 (<14) MV A Vmax 0.85 (0.4-1.3 m/s) MV E' lateral 0.065 (>0.1 m/s) E/A Ratio 0.9 MV E/E' LAT 11.63 (<14) MV E' Average 0.069 m/s MV E/E'(average) 10.99 Aortic Valve AoV Vmax 1.12 m/s LVOT Vmax 1.03 m/s AoV Peak Grad 5.1 mmHg LVOT Peak Grad 4.3 mmHg AoV Area (Vmax) 2.42 cm2 LVOT VTI 0.237 m AoV VTI 0.274 m LVOT Mean Grad 2.2 mmHg AoV Mean Freddy. 0.78 m/s LVOT SV 62.44 mL AoV Mean Grad 2.8 mmHg LVOT Diam s 1.80 cm AoV Area (VTI) 2.28 cm2 AV Regurg Peak Gr. 5.05 mmHg Velocity Ratio 0.92 Mitral Valve MV DT 200 (160-240 msec) MV Vmax TIPS 0.84 m/s MV Mean Grad 1.4 (<2mmHg) MV VTI 0.235 m Pulmonary Valve PV Vmax 0.88 (0.5-1.5 m/s) PV Peak Grad 3.1 mmHg PV Mean Freddy 0.59 m/s PV Mean Grad 1.6 mmHg Tricuspid Valve RA Pressure 3.00 mmHg TR Vmax 2.65 m/s TR Peak Grad 28.1 mmHg RVSP (TR) 31.2 mmHg
--- NOTE | 2024-01-16 09:55 | PT.INIE ---
PT Notes Visit Reasons: CVA, Speech Disturbances Physical Therapy Inpatient Initial Evaluation Date: 01/16/2024 Referring Doctor: Ladan Brock APRN PT Orders: PT CONSULT: Safety Consult for D/C Precautions: Standard. Activity as tolerated. Patient Profile/Admitting Diagnosis: Cathy is an 88-year-old female admitted for observation and further assessment of suspected CVA, constipation, and SIADH. Both CT and and MRI of head on 01/15/2024 were negative for any acute intracranial abnormality. PMHx: All Active Problems Brain TIA (Acute) CVA (cerebral vascular accident) (Chronic) Shingles (Acute) Recurrent pneumonia (Acute) Frailty syndrome in geriatric patient (Acute) Advanced care planning/counseling discussion (Acute) Palliative care patient (Acute) Palliative care is happy to urgently consult on this patient in ED and help with decisions needed at the time if staffing available. Urinary incontinence (Acute) SIADH (syndrome of inappropriate ADH production) (Chronic) Generalized weakness (Acute) Constipation (Acute) Dysuria (Acute) LUQ abdominal pain (Acute) Serrated adenoma of colon (Acute ~07/18/22) Neck pain on right side (Acute) Perforated diverticulum (Chronic) Dermatitis (Acute) Vaginitis, atrophic (Acute) Hyponatremia (Chronic) Multiple occasions last of which was 01/2021, 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) Erosive gastritis (Chronic) DNR (do not resuscitate) (Chronic) Also DNI, POLST form per [facility] Medical History Acute electrocardiogram changes Hypertensive urgency Fall Toxic metabolic encephalopathy Acute hyponatremia AMS (altered mental status) Dehydration Pancreatitis Hyponatremia Gastritis Urinary tract infection Abdominal pain Sore in nose Hyponatremia Complicated UTI (urinary tract infection) H/O sigmoidoscopy (~07/18/22) New daily persistent headache wakes up with, gone by noon, pain radiates to right side of neck RUQ abdominal pain Hypomagnesemia Epigastric pain Macular degeneration Hx of fracture of pelvis pt. 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 intestinal meta. or dysplasia Family history of GI malignancy Essential hypertension (01/14/13) Depressive disorder Atrophic vaginitis (08/19/11) Pt. states she is unsure [place]; rib fracture; lacerated liver; fx-pelvis; perf. intestine Family history of GI malignancy Surgical History KNEE SURGERY (~05/2012) Abdominal hysterectomy EGD - MAC (04/22/17) Colonoscopy - MAC (04/22/17) Colonoscopy - MAC (~02/2012) Cholecystectomy Bladder Surgery Bilateral salpingectomy with oophorectomy Arthroplasty of knee (05/27/12) LEFT - Pt denies knee replacement Social History/Home Situation: Lives with son and his family in a private home with 3 steps to enter without rails. Independent with all mobility ADL performance without any assistive device. No longer drives. No falls at home in the past year. Equipment Owned/DME: [facility] Subjective: Denied headache, chest pain, and lightheadedness throughout session. Objective: General Observation: Was in a squat position in front of the bedside commode doing pericare on herself after a small bowel movement. Mental Status: Alert and oriented as to person, place, time, and purpose. Able to pay attention, focus, and respond appropriately. Responses were accurate albeit slowed. Pain: 0/10 ROM: Right Upper Extremity: Shoulder Flexion WFL. Shoulder abduction WFL. Elbow flexion WFL. Wrist flexion WFL. Functional opening and closing of hand WFL. Left Upper Extremity: Shoulder Flexion WFL. Shoulder abduction WFL. Elbow flexion WFL. Wrist flexion WFL. Functional opening and closing of hand WFL. Right Lower Extremity: Hip flexion WFL. Hip abduction WFL. Knee flexion WFL. Ankle dorsiflexion WFL. Ankle plantarflexion WFL. Left Lower Extremity: Hip flexion WFL. Hip abduction WFL. Knee flexion WFL. Ankle dorsiflexion WFL. Ankle plantarflexion WFL. Strength: Right Upper Extremity: Shoulder flexors 4/5. Shoulder abductors 4/5. Elbow flexors 5/5. Elbow extensors 5/5. Physicist Acoustics strong. Left Upper Extremity: Shoulder flexors 4/5. Shoulder abductors 4/5. Elbow flexors 5/5. Elbow extensors 5/5. Physicist Acoustics strong. Right Lower Extremity: Hip flexors 4/5. Hip abductors 5/5. Knee flexors 5/5. Knee extensors 4/5. Ankle dorsiflexors 4/5. Ankle plantarflexors 4/5. Left Lower Extremity: Hip flexors 4/5. Hip abductors 5/5. Knee flexors 5/5. Knee extensors 4/5. Ankle dorsiflexors 4/5. Ankle plantarflexors 4/5. Bed Mobility/Transfers: Minimal cueing provided for use of B hands as needed for support, movement sequence, Ad management, and and posture to reduce fall risk and minimize pain report Sit to stand independent Stand to sit independent Bed to reclining chair independent Reclining chair to bed independent Gait: Instructed patient with level surface ambulation of 200 feet requiring supervision only for directions. Mild path deviation but no LOB. Haley slowed. Balance: Static Sitting: Normal Dynamic Sitting: Normal Static Standing: Good Dynamic Standing: Good 4-Stage Balance Test: Able to maintain feet together and semi-tandem for 10 seconds but is unable to do so with full tandem and one-legged stance legged stance. Special Tests: Mobility Limitations Standardized Measure [facility]-PAC 6 clicks Basic Mobility Inpatient Short Form: Raw Score: 24 CMS Score: 0% deficit 4-Stage Balance Test: Feet together 10 seconds Semi-tandem 10 seconds Full tandem 6 seconds One-legged stance 3 seconds Informed Consent/Education: Patient was instructed in purpose of PT consult. ASSESSMENT: Patient presents with clinical signs and symptoms consistent with current/admitting diagnoses that have resulted to mobility limitations, gait instability, generalized weakness, and overall ADL decline as demonstrated by the following impairment level findings: 1. Impaired standing balance Impairments are contributing to the following functional limitations: 2. Increased completion time for mobility ADL performance 3. Increased risk for falls Patient is assessed as a 62407 low complexity based on the following: History: 88-year-old female with past medical history as indicated above Examination: Demonstrable impairment in strength, balance, and mobility level with underlying impairments and functional limitations as exhibited above Presentation: Stable Decision Makin moderate complexity Goals: N/A. PT evaluation only. Plan of Care/Treatment Plan: N/A. PT evaluation only. DISCHARGE RECOMMENDATIONS: [] Home with no services [] [] Home with services physical [X] Home with outpatient PT to work on static and dynamic standing balance and B LE strengthening [] SNF for continued rehabilitation [] [] [facility] [] [] SNF versus LTC based on ability to participate and progress [] TREATMENT CODE/TIME: 34588 x 23 minutes for 1 unit (9:55-10:19). Thank you for the opportunity to participate in the care of this patient. Alyx Reyes PT, DPT, CLT [facility] [place], [place]
--- NOTE | 2024-01-16 11:08 | W.PM.DS.N ---
Date of service: 01/16/24 Time of Service: 11:08 DS: Diagnosis Discharge Diagnosis (1) CVA (cerebral vascular accident): Status: Chronic (2) Constipation: Status: Acute (3) SIADH (syndrome of inappropriate ADH production): Status: Chronic Discharge Plan Disposition Patient Disposition: Home Condition: Stable Discharge Details Reason For Visit: CVA, Speech Disturbances Admit Date/Time: 01/15/24 14:57 Admit Provider: Andres Newsome Attending Provider: Andres Newsome Primary Care Provider: Jason Huff Hospital Course Hospital Course: This 88-year-old female patient with a past medical history of recent shingles, recurrent pneumonia, SIADH, GERD with gastritis, pancreatitis, hypertension, referred to the ED after visit at [facility] with son where she started to exhibit neurological symptoms thought to be stroke-like by nursing staff. On arrival to the ED the patient still displayed speech disturbance but was improving. Workup in the ED was significant for a head CT that was negative for acute injury and a negative CT of her neck. Blood work was unremarkable. Teleneurology consult with [facility] recommended aspirin, no Plavix, and MRI. The hospitalist was consulted and the patient was admitted for observation for CVA, speech disturbance. Echo with bubble study completed with formal read pending at discharge. Her MRI was negative for an acute stroke, no acute findings. She is at her baseline and PT evaluation completed with discharge to home with outpatient PT for balance retraining. she is hemodynamically stable and at her baseline with no new c/o. she is being discharged to home by private vehicle. discussed with DR Trinidad Home Meds and New Rx's Prescriptions: New aspirin 81 mg Tablet,Delayed Release (Dr/Ec) 81 mg PO DAILY Qty: 0 0RF Continued PreserVision AREDS 4,296 mcg-226 mg-90 mg capsule 1 cap PO BID albuterol sulfate 90 mcg/actuation HFA aerosol inhaler 1 - 2 inh IH Q6H PRN (Reason: shortness of breath or wheezing) Qty: 8.5 6RF ferrous sulfate 325 mg (65 mg iron) tablet,delayed release (DR/EC) 325 mg PO .QOD Qty: 45 4RF metoprolol tartrate 25 mg tablet 25 mg PO BID Qty: 180 3RF Thermotabs 287-180-15 mg tablet 1 tab PO TID polyethylene glycol 3350 [Miralax] 17 gram/dose powder 17 g PO DAILY mupirocin calcium 2 % cream 1 applic topical BID Qty: 15 0RF (DME) Aerochamber MV Spacer See Rx Instructions .Route Qty: 1 0RF Rx Instructions: As directed triamcinolone acetonide 0.1 % cream 1 applic topical BID Qty: 15 0RF simvastatin 5 mg tablet 5 mg PO DAILY Qty: 90 3RF estradiol 0.01 % (0.1 mg/gram) cream 1 g vaginal DAILY Qty: 42.5 2RF Rx Instructions: local application daily for one week and then 3 times per week cefpodoxime 200 mg tablet 200 mg PO BID Qty: 28 0RF Rx Instructions: must administer with a meal/food famotidine 20 mg tablet 20 mg PO QHS Qty: 90 3RF Blink Tears 0.25 % drops 1 drp ophthalmic (eye) DAILY Discharge Instructions Instructions: Aphasia Additional Instructions: Your symptoms have resolved and your workup shows no acute stroke by MRI. You can continue with daily aspirin unless your primary care provider does not want this to continue. Physical therapy recommends outpatient rehabilitation for gait retraining Referrals: [facility] [Provider Group] (gait retraining) Jason Huff NP [Primary Care Provider] - Activity:: Activity as Tolerated Equipment/Supplies:: No Equipment Needed Diet:: As Tolerated Discharge Orders Discharge Orders: Discharge Order (Routine); Ordered 01/16/24 Ordered By: Melva Hastings DS: Summary Time Spent with Patient providing and/or coordinating discharge services: Greater than 30 minutes Status at Discharge Functional status at discharge: uses cane/walker Overall status at discharge: patient is back to baseline Mental Status: other (Cognitive impairment) Speech and Movement: speech and movement normal Mood: congruent mood and other (Cognitive impairment) Affect: normal affect Quality:SDOH Health Related Social Needs: No Data to Display Exam Narrative Exam Narrative: Elderly female frail stated age no acute distress, poor historian Head is atraumatic oral mucosas dry Neck is supple there is no JVD Cardiovascular regular rate and rhythm no peripheral edema Respirations are even and unlabored breath sounds are clear bilaterally with diminished bases Abdomen is flat soft, reports it is tender with palpation, positive bowel sounds Her extremities are without edema moves all extremities Psych Mental Status: other (Cognitive impairment) Speech and Movement: speech and movement normal Mood: congruent mood and other (Cognitive impairment) Affect: normal affect DS: Data Vitals/I&O Vitals and I&O: Vital Signs Temperature 36.7 C 01/16/24 07:17 Temperature Source Temporal Artery Scan 01/16/24 07:17 Pulse 80 01/16/24 07:17 Respiratory Rate 16 01/16/24 07:17 Respiratory Effort Normal 01/15/24 22:00 Blood Pressure 142/66 H 01/16/24 07:17 Pulse Oximetry 94 01/16/24 07:17 Oxygen Delivery Method Room Air 01/16/24 07:17 Oxygen Flow Rate 0 01/16/24 07:17 Pain Level 4 01/16/24 07:17 Intake & Output 01/15/24 01/15/24 01/16/24 11:59 23:59 11:59 Weight 56.3 kg Data Completed and Pending Labs on day of discharge: Labs from last 24 hours 01/16/24 01/15/24 01/15/24 08:25 14:14 12:00 WBC 7.42 RBC 4.20 Hgb 12.9 Hct 38.7 MCV 92 D MCH 30.7 MCHC 33.3 RDW 13.5 Plt Count 164 MPV 10.2 Immature Gran % 0.3 Neutrophils % 72.6 Lymphocytes % 18.9 Monocytes % 7.4 Eosinophils % 0.4 Basophils % 0.4 Nucleated RBC % 0.0 Absolute Neutrophils 5.39 Absolute Lymphocytes 1.40 Absolute Monocytes 0.55 Absolute Eosinophils 0.03 Absolute Basophils 0.03 APTT Sodium 134 L Potassium 4.7 Chloride 97 L Carbon Dioxide 29.7 Anion Gap 7.3 BUN 21 H Creatinine 1.0 Est GFR (CKD-EPI 2020) 54.87 Glucose 109 H Hemoglobin A1c Calcium 9.3 Magnesium 2.0 Total Bilirubin AST ALT Alkaline Phosphatase Troponin I 6 6 Total Protein Albumin Triglycerides Total Cholesterol LDL Cholesterol, Calc HDL Cholesterol Urine Color Urine Clarity Urine pH Ur Specific [place] Urine Protein Urine Ketones Urine Blood Urine Nitrite Urine Bilirubin Urine Urobilinogen Ur Leukocyte Esterase Urine Glucose 01/15/24 01/15/24 11:49 10:46 WBC RBC Hgb Hct MCV MCH MCHC RDW Plt Count MPV Immature Gran % Neutrophils % Lymphocytes % Monocytes % Eosinophils % Basophils % Nucleated RBC % Absolute Neutrophils Absolute Lymphocytes Absolute Monocytes Absolute Eosinophils Absolute Basophils APTT 25.9 Sodium 138 Potassium 4.6 Chloride 100 Carbon Dioxide 33.0 H Anion Gap 5.0 BUN 19 H Creatinine 0.9 Est GFR (CKD-EPI 2020) 62.26 Glucose 85 Hemoglobin A1c 5.8 H Calcium 9.0 Magnesium 2.0 Total Bilirubin 0.47 AST 29 ALT 32 Alkaline Phosphatase 98 Troponin I 4 Total Protein 7.1 Albumin 3.4 Triglycerides 34 Total Cholesterol 163 LDL Cholesterol, Calc 93 HDL Cholesterol 64 Urine Color Yellow Urine Clarity Clear Urine pH 7.0 Ur Specific [place] 1.015 Urine Protein Negative Urine Ketones Negative Urine Blood Negative Urine Nitrite Negative Urine Bilirubin Negative Urine Urobilinogen 0.2 Ur Leukocyte Esterase Negative Urine Glucose Negative PFSH All Active Problems Brain TIA (Acute) CVA (cerebral vascular accident) (Chronic) Shingles (Acute) Recurrent pneumonia (Acute) Frailty syndrome in geriatric patient (Acute) Advanced care planning/counseling discussion (Acute) Palliative care patient (Acute) Palliative care is happy to urgently consult on this patient in ED and help with decisions needed at the time if staffing available. Urinary incontinence (Acute) SIADH (syndrome of inappropriate ADH production) (Chronic) Generalized weakness (Acute) Constipation (Acute) Dysuria (Acute) LUQ abdominal pain (Acute) Serrated adenoma of colon (Acute ~07/18/22) Neck pain on right side (Acute) Perforated diverticulum (Chronic) Dermatitis (Acute) Vaginitis, atrophic (Acute) Hyponatremia (Chronic) Multiple occasions last of which was 01/2021, 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) Erosive gastritis (Chronic) DNR (do not resuscitate) (Chronic) Also DNI, POLST form per [facility] Medical History Acute electrocardiogram changes Hypertensive urgency Fall Toxic metabolic encephalopathy Acute hyponatremia AMS (altered mental status) Dehydration Pancreatitis Hyponatremia Gastritis Urinary tract infection Abdominal pain Sore in nose Hyponatremia Complicated UTI (urinary tract infection) H/O sigmoidoscopy (~07/18/22) New daily persistent headache wakes up with, gone by noon, pain radiates to right side of neck RUQ abdominal pain Hypomagnesemia Epigastric pain Macular degeneration Hx of fracture of pelvis pt. 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 intestinal meta. or dysplasia Family history of GI malignancy Essential hypertension (01/14/13) Depressive disorder Atrophic vaginitis (08/19/11) Pt. states she is unsure [place]; rib fracture; lacerated liver; fx-pelvis; perf. intestine Family history of GI malignancy Surgical History KNEE SURGERY (~05/2012) Abdominal hysterectomy EGD - MAC (04/22/17) Colonoscopy - MAC (04/22/17) Colonoscopy - MAC (~02/2012) Cholecystectomy Bladder Surgery Bilateral salpingectomy with oophorectomy Arthroplasty of knee (05/27/12) LEFT - Pt denies knee replacement Family History Mother , AGE 84 Heart disease Father , AGE 87 Stroke Heart disease Cancer Sister Stroke Brother Alcohol abuse Cancer Brother Cancer of kidney Son Hyperlipidemia Pulmonary disease Daughter Thyroid disease Daughter Cancer s/p hysterectomy Daughter No problems noted. Daughter No problems noted. Brother No problems noted. Maternal Grandfather No problems noted. Paternal Grandfather No problems noted. Maternal Grandmother No problems noted. Paternal Grandfather No problems noted. Social History Smoking/Tobacco Use Status: Former Tobacco Use tobacco type: cigarettes Quit Date: 03/17/97 Second Hand Exposure: Yes Smoking risk assessment performed?: Yes Alcohol Intake: never Drug use: Never Substance use type: does not use Adopted: No Caregiver/Support person: Yes (both boxes checked) Housing: house Number of Children: 5 Communication Needs: Hard of Hearing and Corrective Lenses Education Level: high school Do you need help understanding health information?: Always current occupation: none Pets and animals: No Sexually active: No Do you think of yourself as: straight/heterosexual Current gender identity: female What is your relationship status?: How often do you talk on the phone with friends or family?: decline to answer How often do you get together with friends or relatives?: decline to answer How often do you attend roman catholic or nondenominational services?: decline to answer Do you belong to any clubs or organized social groups?: no Panel score (0-1 are the most socially isolated patients): 0 What type of physical activity do you participate in: walking Carri/Evangelical: No preference Special carri needs: No Seatbelt use: always Helmet use: No Drive intox 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 pick up truck driver: No Firearms in home: No In current or past relationships, have you been: made to feel afraid Do you feel safe at home: Yes Time Spent with Patient Time Spent with Patient: 45-69 minutes Time was spent: preparing to see the patient(eg.review tests), obtaining and/or reviewing separately otained hiistory, ordering medications,tests, procedures, indepentently interpreting results and counseling the patient
--- NOTE | 2024-01-16 12:15 | PDOC.CMPRO ---
Date of service: 01/16/24 Time of Service: 12:15 Care Management Progress Note Progress Note Text Progress Note Text: Cathy was seen in the Ed on 01/15/24 for difficulty with speech and mild symptoms of a CVA. She remained in the ED as there were no beds available . Her acute stroke workup was negative and her symptoms improved. She was discharged home this morning following an echocardiogram with bubble study. She will follow up with her community providers and plan of care and transport with family. SDOH(Care Management) Screening Will the Patient Participate in the Screening?: Unable to obtain
== END 2024-01-16 11:15 | disposition home or self-care (01) ==
LOC: ER 15:20 → EDHOLD 16:00
PROVIDERS: Nurse Practitioner Acute Care; Admitting Provider Family Medicine; Emergency Provider Physician Assistant; PCP Nurse Practitioner Family; Visit Provider Family Medicine
DX: G45.9 Transient cerebral ischemic attack, unspecified (principal); R20.2 Paresthesia of skin; E22.2 Syndrome of inappropriate secretion of antidiuretic hormone; K59.00 Constipation, unspecified; I10 Essential (primary) hypertension; R91.8 Other nonspecific abnormal finding of lung field; K22.70 Barrett's esophagus without dysplasia; F32.A Depression, unspecified; K29.70 Gastritis, unspecified, without bleeding; R47.9 Unspecified speech disturbances; Z79.899 Other long term (current) drug therapy; R54 Age-related physical debility; D64.9 Anemia, unspecified; K21.00 Gastro-esophageal reflux disease with esophagitis, without bleeding; E78.5 Hyperlipidemia, unspecified
CPT/HCPCS: 00123; 36415; 36416; 70496; 70498; 80048; 80053; 80061; 82962; 93005; 93306; 96372; 97161; 99285; J1650; 70551; 71045; 81003; 83036; 83735; 84484; 85025; 85730; 93010; 99239

== ENCOUNTER 2024-02-17 17:07 | Outpatient (REF) | payer MEDICARE, SELFPAY ==
[2024-02-17 13:08] LABS: Anion Gap 8.2 mmol/L (3-11); BUN 25 mg/dL (7-18); CO2 29.8 mmol/L (21.0-32.0); CREATININE 0.9 mg/dL (0.55-1.02); Chloride 100 mmol/L (98-107); Estimated GFR 62.26 (mL/min/1.73m2); Glucose 91 mg/dL (74-106); Potassium 4.9 mmol/L (3.5-5.1); Sodium 138 mmol/L (136-145)
== END 2024-02-17 17:08 | disposition home or self-care (01) ==
LOC: LBN 17:07
PROVIDERS: PCP Nurse Practitioner Family; Visit Provider Nurse Practitioner Family
DX: E22.2 Syndrome of inappropriate secretion of antidiuretic hormone (principal)
CPT/HCPCS: 80048

== ENCOUNTER 2024-03-18 21:55 | Outpatient (REF) | payer MEDICARE, SELFPAY | END 2024-03-18 21:56 | disposition home or self-care (01) | LOC: LBN 21:55 | PROVIDERS: PCP Nurse Practitioner Family; Visit Provider Physician Assistant | DX: N39.0 Urinary tract infection, site not specified (principal) | CPT/HCPCS: 87077; 87086; 87186 ==

== ENCOUNTER 2024-03-22 20:17 | Outpatient (REF) | payer MEDICARE, SELFPAY ==
[2024-03-22 21:37] LABS: Bilirubin Negative (Negative); Blood Negative (Negative); Clarity Clear (Clear); Glucose Negative (Negative); Ketones Trace mg/dL (Negative); Leukocyte Esterase Negative (Negative); Nitrite Negative (Negative); Specific Gravity <= 1.005 (1.005-1.025); Urobilinogen 0.2 mg/dL (Up to 0.2); pH 6.5 (5-8)
== END 2024-03-22 20:18 | disposition home or self-care (01) ==
LOC: LBN 20:17
PROVIDERS: PCP Nurse Practitioner Family; Visit Provider Nurse Practitioner Family
DX: R39.9 Unspecified symptoms and signs involving the genitourinary system (principal); R10.11 Right upper quadrant pain; R10.9 Unspecified abdominal pain; N39.0 Urinary tract infection, site not specified
CPT/HCPCS: 81003

== ENCOUNTER 2024-03-26 00:20 | Outpatient (CLI) | payer MEDICARE, SELFPAY ==
--- NOTE | 2024-03-26 07:15 | DI.US_ITS ---
Exam(s) US ABDOMEN RENAL EXAM: US ABDOMEN RENAL CLINICAL HISTORY: evaluate pathology,RUQ AND RT FLANK PAIN,R10.11,R10.9 TECHNIQUE: Ultrasound abdomen performed using standard protocol. COMPARISON: CT CT ABDOMEN PELVIS W from 11/26/2023 FINDINGS: ABDOMINAL AORTA AND IVC: Visualized portions normal caliber. PANCREAS: Normal where visualized. LIVER: Normal. Hepatopetal flow in the Portal Vein. The liver measures 12.8cm long.No hepatic mass is seen sonographically. GALLBLADDER: Status post cholecystectomy. BILIARY SYSTEM: Common bile duct measures < 7 mm. No intrahepatic biliary ductal dilation. SPLEEN: Not enlarged. ASCITES: None seen. Renal size in cm: Right: 8.9. Left: 8.9. Echogenicity: Normal. Hydronephrosis: No. Cyst or mass: No. Nephrolithiasis: No. Other findings: None. Bladder:The bladder was empty and could not be evaluated. Ureteral jets: Right: Not visualized on this examination. Left: Not visualized on this examination. Renal color flow: Symmetric and within normal limits. IMPRESSION: 1. Status post cholecystectomy. No significant biliary ductal dilatation. 2. Unremarkable liver. 3. No evidence of nephrolithiasis or hydronephrosis. 4. The bladder was empty and cannot be evaluated. DATA REPOSITORY:
== END 2024-03-26 00:40 ==
LOC: DI 00:21
PROVIDERS: PCP Nurse Practitioner Family; Visit Provider Nurse Practitioner Family
DX: R10.11 Right upper quadrant pain (principal)
CPT/HCPCS: 76770; 76700

== ENCOUNTER 2024-03-29 08:45 | Emergency (ER) | payer MEDICARE, SELFPAY ==
[2024-03-29 08:50] VITALS: BP 144/50; PULSE 68; RESP 18; TEMP 36.5; O2SAT 98
[2024-03-29 08:59] VITALS: O2SAT 98
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
--- NOTE | 2024-03-29 09:15 | DI.CT_ITS ---
Exam(s) CT ABDOMEN PELVIS W EXAM: CT ABDOMEN PELVIS W CLINICAL HISTORY: abd pain. TECHNIQUE: Imaging Protocol: Axial computed tomography images with coronal and sagittal reformatted images were created and reviewed CONTRAST MATERIAL: Intravenous: Omnipaque 350 Contrast volume:75 ml Oral: no COMPARISON: CT CT ABDOMEN PELVIS W from 11/26/2023 FINDINGS: ABDOMEN and PELVIS: Lung Bases: No acute findings. Liver: Normal density. No suspicious mass. Gallbladder and biliary tract: Status post cholecystectomy. Stable mild biliary dilatation. Pancreas: Normal density. No abnormal calcifications or inflammatory process. No evidence of mass. Spleen: Normal. Kidneys: Normal size, contour and axis. No radiodense stones. No obstructive uropathy. No suspicious masses seen. Adrenal glands: No masses seen. Vasculature: Abdominal aorta non-dilated. Atherosclerotic changes. Soft tissues: Unremarkable. Bladder: Empty. Bowel: No obstruction. Sigmoid diverticulosis. This area is somewhat obscured by artifact. No def inite diverticulitis. Appendix normal. Peritoneal cavity: No ascites. No focal collection. No mesenteric inflammatory response. No free air . Bones: Hardware in pubic symphysis. Bones appear osteopenic. Reproductive organs: Uterus not seen. Lymph nodes: No pathologically enlarged lymph nodes. IMPRESSION:: Exam somewhat limited by metallic artifact at the pubic symphysis. No acute abnormalit y in the abdomen or pelvis. RADIATION DOSE DELIVERED: 445.76mGy.cm Total DLP DATA REPOSITORY: All CT scans at this facility are submitted to the National Radiology Data Registry (NRDR) Dose Index Registry (DIR) with the [employer] (ACR). RADIATION OPTIMIZATION: All CT scans at this facility use at least one of these dose optimization te chniques: automated exposure control; mA and/or kV adjustment per patient size (includes targeted exa ms where dose is matched to clinical indication); or iterative reconstruction.
[2024-03-29 09:55] LABS: Abs Immature Grans 0.04 10^3/uL (0.0-0.06); Absolute Basophil Count 0.03 10^3/uL (0.0-0.2); Absolute Eosinophil Count 0.02 10^3/uL (0.0-0.7); Absolute Lymphocyte Count 1.08 10^3/uL (1.2-3.4); Absolute Neutrophil Count 5.02 10^3/uL (1.2-6.7); Basophils % 0.4 %; Eosinophils % 0.3 %; HGB 13.4 g/dL (11.2-15.7); Immature Grans % 0.6 %; Lymphocytes % 15.7 %; MCH 30.6 pg (27.0-33.0); MCHC 33.5 % (32.0-36.0); MCV 91 fL (80-95); MPV 10.5 fL (8.0-11.0); Monocytes % 10.2 %; Neutrophils % 72.8 %; Platelet Count 149 10^3/uL (130-400); RBC 4.38 10^6/uL (3.93-5.22); RDW 12.3 % (11.7-14.6); RDW-SD 41.1 fL; WBC 6.89 10^3/uL (4.4-10.8)
[2024-03-29 10:11] LABS: ALT 17 U/L (14-59); AST 21 U/L (15-37); Albumin 3.6 g/dL (3.4-5.0); Alkaline Phosphatase 96 U/L (46-116); Anion Gap 6.6 mmol/L (3-11); BUN 21 mg/dL (7-18); CO2 30.4 mmol/L (21.0-32.0); Calcium 9.5 mg/dL (8.5-10.1); Chloride 96 mmol/L (98-107); Estimated GFR 54.53 (mL/min/1.73m2); Glucose 110 mg/dL (74-106); Potassium 4.7 mmol/L (3.5-5.1); Sodium 133 mmol/L (136-145); Total Protein 7.2 g/dL (6.4-8.2)
[2024-03-29 10:16] VITALS: BP 137/37; PULSE 56
[2024-03-29] MEDS: Omnipaque 350 MG/ML 100 ML BTL IJ (10:37)
[2024-03-29] MEDS: Normal Saline - Diluent 50 ML VIAL IJ (10:38)
[2024-03-29 10:42] LABS: Bilirubin Negative (Negative); Blood Negative (Negative); Clarity Clear (Clear); Glucose Negative (Negative); Ketones Negative (Negative); Leukocyte Esterase Negative (Negative); Nitrite Negative (Negative); Specific Gravity 1.015 (1.005-1.025); Urobilinogen 0.2 mg/dL (Up to 0.2)
[2024-03-29 12:12] VITALS: BP 137/62; RESP 16; O2SAT 98
== END 2024-03-29 12:12 | disposition home or self-care (01) ==
PROVIDERS: Emergency Provider Emergency Medicine; PCP Nurse Practitioner Family
DX: R10.30 Lower abdominal pain, unspecified (principal); R32 Unspecified urinary incontinence; R19.8 Other specified symptoms and signs involving the digestive system and abdomen; F03.90 Unspecified dementia, unspecified severity, without behavioral disturbance, psychotic disturbance, mood disturbance, and anxiety
CPT/HCPCS: 36415; 80053; 99285; 74177; 81003; 85025; 99284; J3490

== ENCOUNTER 2024-04-15 11:09 | Outpatient (REF) | payer MEDICARE, SELFPAY | END 2024-04-15 11:10 | disposition home or self-care (01) | LOC: LBN 11:09 | PROVIDERS: PCP Nurse Practitioner Family; Visit Provider Obstetrics & Gynecology | DX: N94.9 Unspecified condition associated with female genital organs and menstrual cycle (principal) | CPT/HCPCS: 87480; 87510; 87660 ==

== ENCOUNTER 2024-05-10 13:57 | Outpatient (CLI) | payer MEDICARE, SELFPAY ==
--- NOTE | 2024-05-10 13:58 | DI.RAD_ITS ---
Exam(s) XR CHEST 2V PA LATERAL EXAM: XR CHEST 2V PA LATERAL CLINICAL HISTORY: cough, r/o pneumonia, R05 TECHNIQUE: 2D digital imaging was performed. Two views. COMPARISON: CT CT CHEST PE CTA from 04/28/2023 CR XR CHEST 2V PA LATERAL from 05/21/2023 FINDINGS: HEART: Normal size. Aorta: Not dilated. PULMONARY VASCULATURE: Normal. MEDIASTINUM: Unremarkable. LUNGS: Increased densities are now seen at the right costophrenic angle laterally. Scarring noted in the left upper lobe. PLEURAL SPACE: Minimal blunting at the left costophrenic angle laterally. BONE:Multiple old right rib fractures. Degenerative changes in the spine and shoulders. SOFT TISSUES: Unremarkable. IMPRESSION: New infiltrate at the lateral right costophrenic angle. DATA REPOSITORY: RADIATION DOSE DELIVERED:
== END 2024-05-10 14:17 ==
LOC: DI 13:57
PROVIDERS: PCP Nurse Practitioner Family; Visit Provider Physician Assistant
DX: R05.9 Cough, unspecified (principal); R91.8 Other nonspecific abnormal finding of lung field
CPT/HCPCS: 71046

== ENCOUNTER 2024-05-12 17:36 | Outpatient (REF) | payer MEDICARE, SELFPAY ==
[2024-05-12 21:12] LABS: Abs Immature Grans 0.01 10^3/uL (0.0-0.06); Absolute Basophil Count 0.02 10^3/uL (0.0-0.2); Absolute Lymphocyte Count 1.05 10^3/uL (1.2-3.4); Absolute Monocyte Count 0.76 10^3/uL (0.1-0.8); Absolute Neutrophil Count 2.09 10^3/uL (1.2-6.7); Basophils % 0.5 %; HCT 33.8 % (36.0-46.0); HGB 11.1 g/dL (11.2-15.7); Immature Grans % 0.3 %; Lymphocytes % 26.7 %; MCH 29.8 pg (27.0-33.0); MCHC 32.8 % (32.0-36.0); MCV 91 fL (80-95); Monocytes % 19.3 %; Neutrophils % 53.2 %; RBC 3.72 10^6/uL (3.93-5.22); RDW 12.9 % (11.7-14.6); RDW-SD 42.8 fL; WBC 3.93 10^3/uL (4.4-10.8)
[2024-05-12 21:18] LABS: Anion Gap 6.7 mmol/L (3-11); BUN 27 mg/dL (7-18); CO2 28.3 mmol/L (21.0-32.0); CREATININE 1.1 mg/dL (0.55-1.02); Calcium 8.5 mg/dL (8.5-10.1); Chloride 94 mmol/L (98-107); Estimated GFR 48.63 (mL/min/1.73m2); Glucose 88 mg/dL (74-106); Potassium 4.8 mmol/L (3.5-5.1); Sodium 129 mmol/L (136-145)
[2024-05-12 21:29] LABS: Platelet Count 123 10^3/uL (130-400)
== END 2024-05-12 17:37 | disposition home or self-care (01) ==
LOC: LBN 17:36
PROVIDERS: PCP Nurse Practitioner Family; Visit Provider Physician Assistant
DX: J18.9 Pneumonia, unspecified organism (principal)
CPT/HCPCS: 80048; 85025

== ENCOUNTER 2024-05-14 04:08 | Inpatient (IN) | payer MEDICARE, SELFPAY ==
[2024-05-14] VITALS (14 sets, daily range): BP systolic 120–174; BP diastolic 55–65; PULSE 56–87; RESP 2–19; TEMP 36–37.4; O2SAT 93–98
--- NOTE | 2024-05-14 04:00 | RT.EKG_ITS ---
APPROVED REPORT Exam: Resting ECG Reason for Exam: short of breath Patient Location: E HR:66 bpm ECG Measurements Heart Rate 66 AXIS NV 183 P 29 QRSd 78 QRS 47 QT 386 T 33 QTc 406 Conclusion Sinus rhythm...normal P axis, V-rate 60- 99 Left atrial enlargement...P, P'>60mS, <-0.15mV V1 Anterior infarct, old...Q >40mS, abnormal ST-T, V2-V5 Normal [place] There are no significant changes compared to prior EKG performed on 01/15/2024 at 11:00.
--- NOTE | 2024-05-14 04:10 | W.ED.GENAD ---
Discharge Plan Disposition Patient Disposition: Admit to [facility] Condition: Fair Discharge Details Clinical Impression: Influenza A, Pneumonia involving right lung, COPD exacerbation Primary Care Provider: Jason Huff ED Provider: Jarrell Ashley [place] Meds and New Rx's Prescriptions: No Action PreserVision AREDS 4,296 mcg-226 mg-90 mg capsule 1 cap PO BID albuterol sulfate 90 mcg/actuation HFA aerosol inhaler 1 - 2 inh IH Q6H PRN (Reason: shortness of breath or wheezing) Qty: 8.5 6RF ferrous sulfate 325 mg (65 mg iron) tablet,delayed release (DR/EC) 325 mg PO .QOD Qty: 45 4RF Thermotabs 287-180-15 mg tablet 1 tab PO TID polyethylene glycol 3350 [Miralax] 17 gram/dose powder 17 g PO DAILY (DME) Aerochamber MV Spacer See Rx Instructions .Route Qty: 1 0RF Rx Instructions: As directed metoprolol tartrate 25 mg tablet 25 mg PO BID Qty: 180 3RF triamcinolone acetonide 0.1 % cream 1 applic topical BID Qty: 30 0RF Rx Instructions: apply to urticaria prn cranberry fruit 400 mg tablet 850 mg PO DAILY Patient Comments: 04/15/24- per pt report Rx Instructions: administer with a meal estradiol 0.01 % (0.1 mg/gram) cream 1 g vaginal DAILY Qty: 42.5 2RF Rx Instructions: local application daily for one week and then 3 times per week famotidine 20 mg tablet 20 mg PO QHS Qty: 90 3RF simvastatin 5 mg tablet 5 mg PO DAILY Qty: 90 3RF cefpodoxime 200 mg tablet 200 mg PO Q12H 7 Days Qty: 14 0RF Rx Instructions: must administer with a meal/food. Stop famotadine while taking this medication. doxycycline hyclate 100 mg tablet 100 mg PO BID Qty: 14 0RF ondansetron HCl 4 mg tablet 4 mg PO Q8H PRN (Reason: nausea and vomiting) Qty: 14 0RF Rx Instructions: Take 15-20 min prior to antibiotics Blink Tears 0.25 % drops 1 drp ophthalmic (eye) DAILY aspirin 81 mg Tablet,Delayed Release (Dr/Ec) 81 mg PO DAILY Qty: 0 0RF HPI General Mode of arrival: ambulatory. Date/Time Provider Initiated Documentation: 05/14/24 04:10. Limitations to Documentation: no limitations. Information obtained by: patient, family, RN notes reviewed and old records reviewed. HPI Narrative: Patient presents to ED with worsening cough, not getting any better despite antibiotics for pneumonia diagnosed back on the . Originally placed on cefpodoxime and doxycycline. Subsequently discontinue doxycycline because of nausea. Denies having any chest pain. Does not have an appetite and continues to have nausea but no vomiting. Definitely feels that her cough is worse. Does not feel like her breathing is any better but does not think she is necessarily more short of breath than she has been. Has been using albuterol inhaler but does not feel like it is helping. She has had no fever that she is aware of. Related Data Home Medications ?Medication ?Instructions ?Recorded ?Confirmed albuterol sulfate 90 mcg/actuation 1 - 2 inh inhalation Q6H PRN 11/19/22 05/14/24 aerosol inhaler shortness of breath or wheezing #8.5 grams polyethylene glycol 400 0.25 % eye 1 drp ophthalmic (eye) DAILY 03/10/23 05/14/24 drops (Blink Tears) macular degeneration inhalational spacing device #1 ea 05/21/23 05/14/24 (Aerochamber MV spacer) ferrous sulfate 325 mg (65 mg 325 mg PO .QOD #45 tabs 05/30/23 05/14/24 iron) tablet,delayed release polyethylene glycol 3350 17 17 g PO DAILY 06/05/23 05/14/24 gram/dose oral powder (Miralax) sodium chloride-potassium chloride 1 tab PO TID 06/05/23 05/14/24 287 mg-180 mg-15 mg tablet (Thermotabs) vitamins A,C,Z-zezn-zldjef 4,296 1 cap PO BID 09/29/23 05/14/24 mcg-226 mg-90 mg capsule (PreserVision AREDS) estradiol 0.01% (0.1 mg/gram) 1 g vaginal DAILY #42.5 grams 12/02/23 05/14/24 vaginal cream famotidine 20 mg tablet 20 mg PO QHS #90 tabs 01/13/24 05/14/24 aspirin 81 mg tablet,delayed 81 mg PO DAILY #0 tabs 01/16/24 05/14/24 release cranberry fruit 400 mg tablet 850 mg PO DAILY 04/15/24 05/14/24 simvastatin 5 mg tablet 5 mg PO DAILY #90 tabs 04/27/24 05/14/24 metoprolol tartrate 25 mg tablet 25 mg PO BID #180 tab-caps 04/30/24 05/14/24 triamcinolone acetonide 0.1 % 1 applic topical BID #30 grams 04/30/24 05/14/24 topical cream cefpodoxime 200 mg tablet 200 mg PO Q12H 7 days #14 tabs 05/10/24 05/14/24 doxycycline hyclate 100 mg tablet 100 mg PO BID #14 tabs 05/10/24 05/14/24 ondansetron HCl 4 mg tablet 4 mg PO Q8H PRN nausea and 05/10/24 05/14/24 vomiting #14 tabs Previous Rx's ?Medication ?Instructions ?Recorded albuterol sulfate 90 mcg/actuation 1 - 2 inh inhalation Q6H PRN 11/19/22 aerosol inhaler shortness of breath or wheezing #8.5 grams inhalational spacing device #1 ea 05/21/23 (Aerochamber MV spacer) ferrous sulfate 325 mg (65 mg 325 mg PO .QOD #45 tabs 05/30/23 iron) tablet,delayed release estradiol 0.01% (0.1 mg/gram) 1 g vaginal DAILY #42.5 grams 12/02/23 vaginal cream famotidine 20 mg tablet 20 mg PO QHS #90 tabs 01/13/24 aspirin 81 mg tablet,delayed 81 mg PO DAILY #0 tabs 01/16/24 release simvastatin 5 mg tablet 5 mg PO DAILY #90 tabs 04/27/24 metoprolol tartrate 25 mg tablet 25 mg PO BID #180 tab-caps 04/30/24 triamcinolone acetonide 0.1 % 1 applic topical BID #30 grams 04/30/24 topical cream cefpodoxime 200 mg tablet 200 mg PO Q12H 7 days #14 tabs 05/10/24 doxycycline hyclate 100 mg tablet 100 mg PO BID #14 tabs 05/10/24 ondansetron HCl 4 mg tablet 4 mg PO Q8H PRN nausea and 05/10/24 vomiting #14 tabs Allergies Allergy/AdvReac Type Severity Reaction Status Date / Time ciprofloxacin (From Cipro) Allergy Intermediate Lips and Verified 05/14/24 04:21 face burn, feels shaky, arm tingly codeine AdvReac Intermediate Dizziness/L Verified 05/14/24 04:21 ightheade lovastatin AdvReac Intermediate myalgias Verified 05/14/24 04:21 oxycodone AdvReac Intermediate NAUSEA, GI Verified 05/14/24 04:21 UPSET azithromycin AdvReac cramping, Verified 05/14/24 04:21 anorexia doxycycline AdvReac Nausea, Verified 05/14/24 04:21 Vomiting hydrocodone AdvReac unknown Verified 05/14/24 04:21 General MELINDA: 3 Exam Narrative Exam Narrative: Const: Thin elderly female in NAD. VS per triage. HEENT: NC/AT. Normal facial exam. Neck: Supple. Trachea midline. Lungs: Minimal increased work of breathing. Diffuse wheezing and rhonchi throughout. Very diminished in the right base. Cor: RRR without murmur. Good radial pulses. GI: Soft/ND/NT. Neuro: A+O x 3. Normal speech, mentation, gait. Cranial nerves II - XII grossly intact. No gross motor or sensory deficit. Ext: No C/C/E. Medical Decision Making Patient presenting to ED with worsening cough and no improvement in symptoms despite antibiotics for pneumonia for 3 days now. She is only taken cefpodoxime at this time. Reported that the doxycycline made her too sick to her stomach. Is using albuterol inhaler and does have a former history of smoking and probable COPD. She has diffuse wheezing and rhonchi throughout and is still quite diminished in the right base which is where the pneumonia had been visualized on x-ray. Also has history of SIADH when she becomes ill. Sodium was checked on the 26 and was 129. She is a palliative care patient and does not wish to be aggressive and would like to avoid the hospital is much as she can per recent notes. Room air oxygenation is decent. She is not tachycardic or hypotensive. Her EKG is sinus rhythm with no acute ST changes noted and no significant change from previous. Will plan a DuoNeb for the diffuse wheezing and rhonchi. Will also bolus with Solu-Medrol. Recheck laboratory studies and chest x-ray. Patient does feel like she is a little better breathing after the DuoNeb. Her laboratory studies remained stable. She continues to be a little low on her white count but better than 2 days ago. Stable thrombocytopenia which is new and likely during this illness. Her sodium is 130. Kidney function and liver function are normal. Influenza has come back positive on her nasal PCR. Chest x-ray per my review shows no real worsening or improvement of previous infiltrate. Had a long discussion with patient and son regarding options especially since previous notes from palliative care suggested to avoid hospital admissions. Because she is not feeling any better and has had 2 urgent care visits and 1 emergency department visit with diffuse wheezing and rhonchi, influenza A, right sided pneumonia son and patient agree with admission to get her going in the right direction. I will start her on Tamiflu. She has already received Solu-Medrol. Will dose her with ceftriaxone and doxycycline intravenously. She has been on doxycycline previously and it was only stopped because of nausea. Since she is not improving we will add this back to her regimen. Case discussed with hospitalist. Patient to be admitted to hospitalist service for further management. Medical Records Medical records reviewed: Yes I reviewed the patient's medical records. Medical records narrative: outpatient visits from last few days, palliative care notes, labs and chest x-ray as outpatient Imaging Data Radiologic Study: Attestation: I personally reviewed and interpreted this imaging study as follows: Imaging: X-Ray My impression: See [facility] Lab Data Lab results reviewed: Yes I reviewed the patient's lab results. Lab results narrative: See [facility] ECG Data Attestation: I personally reviewed and interpreted this ECG (s) as follows: Prior ECG tracings: available for review Interpretation: See [facility]/EKG [facility] All Active Problems (Updated 05/14/24 @ 05:42 by Jarrell Ashley MD) COPD exacerbation (Acute) Pneumonia involving right lung (Acute) Influenza A (Acute) New daily persistent headache (Acute) wakes up with, gone by noon, pain radiates to right side of neck Abnormal weight loss (Acute) Recurrent pneumonia (Chronic) Frailty syndrome in geriatric patient (Chronic) Palliative care patient (Chronic) Palliative care is happy to urgently consult on this patient in ED and help with decisions needed at the time if staffing available. 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 Elevated urine sodium with episode of hyponatremia evaluated at [facility] 2019 GERD with esophagitis Erosive gastritis Pancreatitis Macular degeneration Hx of fracture of pelvis pt. 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 intestinal meta. or dysplasia Essential hypertension (01/14/13) Depressive disorder Atrophic vaginitis (08/19/11) Pt. states she is unsure Family history of GI malignancy Surgical History H/O sigmoidoscopy (~07/18/22) KNEE SURGERY (~05/2012) Abdominal hysterectomy EGD - MAC (04/22/17) Colonoscopy - MAC (04/22/17) Colonoscopy - MAC (~02/2012) Cholecystectomy Bladder Surgery Bilateral salpingectomy with oophorectomy Arthroplasty of knee (05/27/12) LEFT - Pt denies knee replacement Family History Mother , AGE 84 Heart disease Father , AGE 87 Stroke Heart disease Cancer Sister Stroke Brother Alcohol abuse Cancer Brother Cancer of kidney Son Hyperlipidemia Pulmonary disease Daughter Thyroid disease Daughter Cancer s/p hysterectomy Daughter No problems noted. Daughter No problems noted. Brother No problems noted. Maternal Grandfather No problems noted. Paternal Grandfather No problems noted. Maternal Grandmother No problems noted. Paternal Grandfather No problems noted. Social History Smoking/Tobacco Use Status: Former Tobacco Use tobacco type: cigarettes Quit Date: 03/17/97 Second Hand Exposure: Yes Smoking risk assessment performed?: Yes Alcohol Intake: never Drug use: Never Substance use type: does not use Adopted: No Caregiver/Support person: Yes (both boxes checked) Housing: house Number of Children: 5 Communication Needs: Hard of Hearing and Corrective Lenses Education Level: high school Do you need help understanding health information?: Always current occupation: none Pets and animals: No Sexually active: No Do you think of yourself as: straight/heterosexual Current gender identity: female What is your relationship status?: How often do you talk on the phone with friends or family?: decline to answer How often do you get together with friends or relatives?: decline to answer How often do you attend anabaptist or confucianism services?: decline to answer Do you belong to any clubs or organized social groups?: no Panel score (0-1 are the most socially isolated patients): 0 What type of physical activity do you participate in: walking Carri/Christianity: No preference Special carri needs: No Seatbelt use: always Helmet use: No Drive intox 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 courtesy car driver: No Firearms in home: No In current or past relationships, have you been: made to feel afraid Do you feel safe at home: Yes
[2024-05-14] MEDS: Albuterol/Ipratropium 3 ML UPD VIAL UPD ×4 (04:39→22:08)
[2024-05-14] MEDS: methylPREDNISolone SUCC 125 MG VIAL IVP (04:40)
[2024-05-14 04:50] LABS: Abs Immature Grans 0.01 10^3/uL (0.0-0.06); Absolute Eosinophil Count 0.02 10^3/uL (0.0-0.7); Absolute Lymphocyte Count 0.76 10^3/uL (1.2-3.4); Absolute Monocyte Count 0.58 10^3/uL (0.1-0.8); Absolute Neutrophil Count 2.92 10^3/uL (1.2-6.7); Eosinophils % 0.5 %; HCT 34.6 % (36.0-46.0); HGB 11.6 g/dL (11.2-15.7); Immature Grans % 0.2 %; Lymphocytes % 17.7 %; MCH 30.2 pg (27.0-33.0); MCHC 33.5 % (32.0-36.0); MCV 90 fL (80-95); MPV 10.8 fL (8.0-11.0); Monocytes % 13.5 %; Neutrophils % 68.1 %; Platelet Count 123 10^3/uL (130-400); RBC 3.84 10^6/uL (3.93-5.22); RDW 12.7 % (11.7-14.6); RDW-SD 41.5 fL; WBC 4.29 10^3/uL (4.4-10.8)
[2024-05-14 04:54] LABS: COVID-19 PCR Negative (Negative); Influenza A PCR Positive (Negative); Influenza B PCR Negative (Negative); RSV PCR Negative (Negative)
[2024-05-14 04:56] LABS: Source Nasopharynx
[2024-05-14 05:05] LABS: ALT 25 U/L (14-59); AST 32 U/L (15-37); Albumin 3.3 g/dL (3.4-5.0); Alkaline Phosphatase 101 U/L (46-116); Anion Gap 0.8 mmol/L (3-11); BUN 15 mg/dL (7-18); Bilirubin, Total 0.39 mg/dL (0.2-1.0); CO2 31.2 mmol/L (21.0-32.0); CREATININE 0.8 mg/dL (0.55-1.02); Calcium 8.6 mg/dL (8.5-10.1); Chloride 98 mmol/L (98-107); Estimated GFR 71.27 (mL/min/1.73m2); Glucose 106 mg/dL (74-106); Magnesium 1.8 mg/dL (1.8-2.4); Potassium 4.7 mmol/L (3.5-5.1); Sodium 130 mmol/L (136-145); Total Protein 6.7 g/dL (6.4-8.2)
--- NOTE | 2024-05-14 05:30 | DI.RAD_ITS ---
Exam(s) XR CHEST 2V PA LATERAL EXAM: XR CHEST 2V PA LATERAL CLINICAL HISTORY: worsening cough, SOB TECHNIQUE: 2D digital imaging was performed. Two views. COMPARISON: CR XR CHEST 2V PA LATERAL from 05/10/2024 FINDINGS: HEART: Normal size. Aorta: Not dilated. PULMONARY VASCULATURE: Normal. MEDIASTINUM: Unremarkable. LUNGS: Hyperinflated. Mild fibrotic changes. Calcified granuloma left upper lobe. PLEURAL SPACE: No pleural effusion or pneumothorax. BONE:Old right rib fractures. SOFT TISSUES: Unremarkable. IMPRESSION: No acute abnormality. DATA REPOSITORY: RADIATION DOSE DELIVERED:
[2024-05-14] MEDS: DOXYCYCLINE 100 MG in Normal Saline 100 ML IVPB ×2 (05:43→17:30)
[2024-05-14] MEDS: cefTRIAXone 1 GM/50 ML BAG IVPB (05:44)
--- NOTE | 2024-05-14 05:59 | DI.VRAD_ITS ---
PROCEDURE INFORMATION: Exam: XR Chest Exam date and time: 05/14/2024 5:12 AM Age: 89 years old Clinical indication: Cough and shortness of breath; Worsening cough, SOB TECHNIQUE: Imaging protocol: Radiologic exam of the chest. Views: 2 views. COMPARISON: CR XR CHEST 2V PA LATERAL 05/10/2024 1:50 PM, CT examination of the chest from February 04, 2021, two-view chest x-ray study from May 21, 2023 FINDINGS: Lungs: Hyperinflation. Stable subcentimeter nodule in left upper lobe. Areas of scarring and or atelectasis in each lung. No consolidation. Pleural spaces: Unremarkable. No pleural effusion. No pneumothorax. Heart/Mediastinum: Unremarkable. No cardiomegaly. Bones/joints: Healed right rib fractures. Degenerative changes. IMPRESSION: No acute findings. Dictated and Authenticated by: Nicolas Butler MD. Orderin Dion Vieyra MD
[2024-05-14] MEDS: Oseltamivir 75 MG CAP PO (06:07)
--- NOTE | 2024-05-14 06:47 | W.PM.HP.N ---
Date of service: 05/14/24 Time of Service: 06:47 Assessment and Plan Assessment and plan (1) Influenza A: Start date: 05/14/24 Status: Acute Assessment and plan: This is an 89-year-old lady now testing positive for flu with respiratory symptoms for several days. She has failed outpatient therapy. She has been on 2 nebulizer treatments and IV Solu-Medrol in the ED. She is not hypoxic. There is an infiltrate in the right upper lung as per ED provider and my interpretation though radiology says there is no acute infiltrate. She does have a history of COPD on rescue inhalers only. She will be treated more aggressively with nebulizers, continue IV Solu-Medrol and IV antibiotic therapy with Rocephin and Zithromax. She could be transition to oral cefpodoxime for completion of therapy with intolerance to doxycycline and erythromycin orally. She has been initiated on Tamiflu 75 mg twice daily for 5 days. She has family support at home with anticipation to be discharged home. She is a DNR/DNI. (2) Pneumonia involving right lung: Start date: 05/14/24 Status: Acute Assessment and plan: IV Rocephin and Zithromax with Tamiflu to be continued to treat influenza. (3) COPD exacerbation: Start date: 05/14/24 Status: Acute Assessment and plan: IV Solu-Medrol converted to prednisone if needed, continue aggressive nebulizer treatments. Watch for hypoxemia. (4) Pancytopenia, acquired: Start date: 05/14/24 Status: Acute Assessment and plan: Patient has very mild pancytopenia associate with viral infection. We will initiate Lovenox prophylaxis for DVT but watch closely and discontinue if platelet counts fall further. She does have a history of chronic anemia on iron supplement intermittently. (5) HTN (hypertension): Status: Chronic Assessment and plan: Continue outpatient therapy adjusting as needed. She is slightly hypertensive in the ED. History of Present Illness History of Present Illness Chief Complaint: Persistent respiratory symptoms with pneumonia treated since 05/10/2024. Narrative: This is an 89-year-old female patient who has history of respiratory infection which was diagnosed 05/10/2024 as pneumonia being started on cefpodoxime and doxycycline. She has stopped cephalexin because of nausea and persistent cough and difficulty breathing. She is not hypoxic. She does use inhalers at home only for rescue. She has a diagnosis of COPD without maintenance therapy. She is very hard of hearing and send appearing with her older son at her bedside during my exam. Because of her persistent symptoms and inability to improve at home, she was evaluated in the ED and found to have persistent infiltrates over the right upper lobe by ED provider and my interpretation though the formal radiological interpretation was no acute disease. She also tested positive for flu. She was likely has prolonged respiratory symptoms because of the influenza but needs more aggressive therapy for her infiltrate which is persisting. She has failed outpatient therapy. She did improve with steroid treatment and IV antibiotic therapy as well as a more aggressive nebulizer treatments in the ED. She was not hypoxic. She was pancytopenic which was mild and associated with this viral illness. She denies any long-term problems with bleeding and has had a history of anemia. She is not on iron supplement. She will be admitted for IV antibiotic therapy and Tamiflu as well as respiratory support with more frequent nebulizer treatments. She also will be placed on IV Solu-Medrol which may help with her bronchitic symptoms. She is a DNR/DNI. Review of Systems Narrative: 13 point review of systems otherwise unrevealing or stable. Patient is very hard of hearing and her son helps with review of systems. PFSH All Active Problems (Updated 05/14/24 @ 06:52 by Andres Newsome) HTN (hypertension) (Chronic) Pancytopenia, acquired (Acute) COPD exacerbation (Acute) Pneumonia involving right lung (Acute) Influenza A (Acute) New daily persistent headache (Acute) wakes up with, gone by noon, pain radiates to right side of neck Abnormal weight loss (Acute) Recurrent pneumonia (Chronic) Frailty syndrome in geriatric patient (Chronic) Palliative care patient (Chronic) Palliative care is happy to urgently consult on this patient in ED and help with decisions needed at the time if staffing available. 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 Elevated urine sodium with episode of hyponatremia evaluated at [facility] 2019 GERD with esophagitis Erosive gastritis Pancreatitis Macular degeneration Hx of fracture of pelvis pt. 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 intestinal meta. or dysplasia Essential hypertension (01/14/13) Depressive disorder Atrophic vaginitis (08/19/11) Pt. states she is unsure Family history of GI malignancy Surgical History H/O sigmoidoscopy (~07/18/22) KNEE SURGERY (~05/2012) Abdominal hysterectomy EGD - MAC (04/22/17) Colonoscopy - MAC (04/22/17) Colonoscopy - MAC (~02/2012) Cholecystectomy Bladder Surgery Bilateral salpingectomy with oophorectomy Arthroplasty of knee (05/27/12) LEFT - Pt denies knee replacement Family History Mother , AGE 84 Heart disease Father , AGE 87 Stroke Heart disease Cancer Sister Stroke Brother Alcohol abuse Cancer Brother Cancer of kidney Son Hyperlipidemia Pulmonary disease Daughter Thyroid disease Daughter Cancer s/p hysterectomy Daughter No problems noted. Daughter No problems noted. Brother No problems noted. Maternal Grandfather No problems noted. Paternal Grandfather No problems noted. Maternal Grandmother No problems noted. Paternal Grandfather No problems noted. Social History Smoking/Tobacco Use Status: Former Tobacco Use tobacco type: cigarettes Quit Date: 03/17/97 Second Hand Exposure: Yes Smoking risk assessment performed?: Yes Alcohol Intake: never Drug use: Never Substance use type: does not use Adopted: No Caregiver/Support person: Yes (both boxes checked) Housing: house Number of Children: 5 Communication Needs: Hard of Hearing and Corrective Lenses Education Level: high school Do you need help understanding health information?: Always current occupation: none Pets and animals: No Sexually active: No Do you think of yourself as: straight/heterosexual Current gender identity: female What is your relationship status?: How often do you talk on the phone with friends or family?: decline to answer How often do you get together with friends or relatives?: decline to answer How often do you attend hoahaoism or roman catholic services?: decline to answer Do you belong to any clubs or organized social groups?: no Panel score (0-1 are the most socially isolated patients): 0 What type of physical activity do you participate in: walking Carri/Muslim: No preference Special carri needs: No Seatbelt use: always Helmet use: No Drive intox 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 local [place] truck driver: No Firearms in home: No In current or past relationships, have you been: made to feel afraid Do you feel safe at home: Yes Meds Allergies and Home Medications Allergies Allergy/AdvReac Type Severity Reaction Status Date / Time ciprofloxacin (From Cipro) Allergy Intermediate Lips and Verified 05/14/24 04:21 face burn, feels shaky, arm tingly codeine AdvReac Intermediate Dizziness/L Verified 05/14/24 04:21 ightheade lovastatin AdvReac Intermediate myalgias Verified 05/14/24 04:21 oxycodone AdvReac Intermediate NAUSEA, GI Verified 05/14/24 04:21 UPSET azithromycin AdvReac cramping, Verified 05/14/24 04:21 anorexia doxycycline AdvReac Nausea, Verified 05/14/24 04:21 Vomiting hydrocodone AdvReac unknown Verified 05/14/24 04:21 Home Medications ?Medication ?Instructions ?Recorded ?Confirmed ?Type albuterol sulfate 90 mcg/actuation 1 - 2 inh inhalation Q6H PRN 11/19/22 05/14/24 Rx aerosol inhaler shortness of breath or wheezing #8.5 grams polyethylene glycol 400 0.25 % eye 1 drp ophthalmic (eye) DAILY 03/10/23 05/14/24 History drops (Blink Tears) macular degeneration inhalational spacing device #1 ea 05/21/23 05/14/24 Rx (Aerochamber MV spacer) ferrous sulfate 325 mg (65 mg 325 mg PO .QOD #45 tabs 05/30/23 05/14/24 Rx iron) tablet,delayed release polyethylene glycol 3350 17 17 g PO DAILY 06/05/23 05/14/24 History gram/dose oral powder (Miralax) sodium chloride-potassium chloride 1 tab PO TID 06/05/23 05/14/24 History 287 mg-180 mg-15 mg tablet (Thermotabs) vitamins A,C,V-zfby-alytpb 4,296 1 cap PO BID 09/29/23 05/14/24 History mcg-226 mg-90 mg capsule (PreserVision AREDS) estradiol 0.01% (0.1 mg/gram) 1 g vaginal DAILY #42.5 grams 12/02/23 05/14/24 Rx vaginal cream famotidine 20 mg tablet 20 mg PO QHS #90 tabs 01/13/24 05/14/24 Rx aspirin 81 mg tablet,delayed 81 mg PO DAILY #0 tabs 01/16/24 05/14/24 Rx release cranberry fruit 400 mg tablet 850 mg PO DAILY 04/15/24 05/14/24 History simvastatin 5 mg tablet 5 mg PO DAILY #90 tabs 04/27/24 05/14/24 Rx metoprolol tartrate 25 mg tablet 25 mg PO BID #180 tab-caps 04/30/24 05/14/24 Rx triamcinolone acetonide 0.1 % 1 applic topical BID #30 grams 04/30/24 05/14/24 Rx topical cream cefpodoxime 200 mg tablet 200 mg PO Q12H 7 days #14 tabs 05/10/24 05/14/24 Rx doxycycline hyclate 100 mg tablet 100 mg PO BID #14 tabs 05/10/24 05/14/24 Rx ondansetron HCl 4 mg tablet 4 mg PO Q8H PRN nausea and 05/10/24 05/14/24 Rx vomiting #14 tabs Exam Narrative Exam Narrative: General: Patient appears appropriate for age sitting up in bed and attentive during conversation. She is very hard of hearing. She is thin built. Alert and oriented to at least person and place. HEENT: Normocephalic, eyes with pupils equal and react to light symmetrically, extraocular movement intact and sclera anicteric. Oropharynx with moist mucosa and fair dentition. Neck: Supple without JVD. Back: Kyphotic without CVA tenderness. Lungs: Bronchovesicular breath sound diffusely with decreased aeration but no focalizing rales or rhonchi. Coarse cough with upper airway noise and scant expiratory wheeze. Breast: Exam deferred. Heart: Regular rate and rhythm with no appreciable murmur or gallop. Abdomen: Scaphoid contour, soft and nontender to palpation with no palpable hepatosplenomegaly. Bowel sounds positive all quadrants. Genitalia/rectal: Exam deferred. Skin: Pale, rough texture, warm and dry. Extremities: Without clubbing, cyanosis or pitting edema. Fair capillary refill. Muscle atrophy diffusely. Neuro: Cranial nerves II through XII gross intact with decreased hearing acuity. Patient is wearing hearing aids. No focalizing motor deficits or tremor. Psych: Flattened affect with patient slightly anxious, normal mood. No abnormal thought processes. Remote and recent memory grossly intact though patient is hard of hearing and conversation was difficult. Results Imaging Imaging Studies: Exam: XR Chest Exam date and time: 05/14/2024 5:12 AM Age: 89 years old Clinical indication: Cough and shortness of breath; Worsening cough, SOB TECHNIQUE: Imaging protocol: Radiologic exam of the chest. Views: 2 views. COMPARISON: CR XR CHEST 2V PA LATERAL 05/10/2024 1:50 PM, CT examination of the chest from February 04, 2021, two-view chest x-ray study from May 21, 2023 FINDINGS: Lungs: Hyperinflation. Stable subcentimeter nodule in left upper lobe. Areas of scarring and or atelectasis in each lung. No consolidation. Pleural spaces: Unremarkable. No pleural effusion. No pneumothorax. Heart/Mediastinum: Unremarkable. No cardiomegaly. Bones/joints: Healed right rib fractures. Degenerative changes. IMPRESSION: No acute findings. Labs 05/14/24 04:44 05/14/24 04:44 Labs: Laboratory Results - last 24 hr 05/14/24 05/14/24 04:15 04:44 WBC 4.29 L RBC 3.84 L Hgb 11.6 Hct 34.6 L MCV 90 MCH 30.2 MCHC 33.5 RDW 12.7 Plt Count 123 L MPV 10.8 Immature Gran % 0.2 Neutrophils % 68.1 Lymphocytes % 17.7 Monocytes % 13.5 Eosinophils % 0.5 Basophils % 0.0 Nucleated RBC % 0.0 Absolute Neutrophils 2.92 Absolute Lymphocytes 0.76 L Absolute Monocytes 0.58 Absolute Eosinophils 0.02 Absolute Basophils 0.00 Sodium 130 L Potassium 4.7 Chloride 98 Carbon Dioxide 31.2 Anion Gap 0.8 L BUN 15 Creatinine 0.8 Est GFR (CKD-EPI 2020) 71.27 Glucose 106 Calcium 8.6 Magnesium 1.8 Total Bilirubin 0.39 AST 32 ALT 25 Alkaline Phosphatase 101 Total Protein 6.7 Albumin 3.3 L COVID-19 Source Nasopharynx SARS-CoV-2 (PCR) Negative Influenza Type A (PCR) Positive A Influenza Type B (PCR) Negative RSV (PCR) Negative Last Vital Signs Temp 37.1 C 05/14/24 04:16 Pulse 69 05/14/24 04:30 Resp 17 05/14/24 04:30 BP 174/60 H 05/14/24 04:16 Pulse Ox 95 05/14/24 04:30 Time Spent Time spent with Patient: >75 minutes Time was spent: preparing to see the patient(eg.review tests), obtaining and/or reviewing separately otained hiistory, ordering medications,tests, procedures, indepentently interpreting results, counseling the patient and care coordination
--- NOTE | 2024-05-14 09:14 | INITIAL_ITS ---
Date of service: 05/14/24 Time of Service: 09:15 Care Management Initial Assmt Initial Assessment Reason for Hospitalization: Flu A, pneumonia, COPD exacerbation Functional Status/Living Situation Patient Presentation: Cathy presented to the ED early this morning with worsening cough, not getting any better despite antibiotics for pneumonia diagnosed back on the . She also c/o poor appetite. Stated that albuterol inhaler is not helping. When CM met with Cathy this afternoon, she was sitting up in the bedside chair. She was very pleasant. She was noted to be a bit forgetful, trouble word finding and recalling fine details, but fully able to carry on a conversation. Cathy lives with her adult son. Does not have services at home. Town of Residence: [place] Resides with: Child (son, Grant) Significant Other/Family: Local (children - Grant is [employer], Christina and Nancy are local. 2 other daughters out of state) Natural Supports: family Employment Status: Retired Instrumental Activities of Daily Living (ADLs): Independent (states that she can do all the things a lady needs to do) Activities/Hobbies/SocialSupport: likes to read Medications Medication Management: No Issues/Barriers identified Physical Functioning/Mobility Assistive Device: no device used Advance Directives Advance Directives: Do you have an Advance Directive: Y 07/03/22 14:53 AD On File at [facility]: N 07/03/22 14:53 Date Asked 05/14/24 05/14/24 04:29 AD Date Reviewed COLST On File at [facility] Yes 07/03/22 14:53 COLST Date Scanned 03/20/23 03/20/23 13:47 Code Status Resuscitation Status DNR/DNI Insurance Coverage/Financial Issues Insurance: AET[employer] Senior Supplemental [facility] Care Team Visit Care Team Role Provider Type Jason Busby NP Primary Care Provider NURSE PRACTITIONER Jarrell Ashley MD Emergency Provider [facility] STAFF PHYSICIAN Discharge Potential Discharge Needs: PT Evaluation and PCP F/U Appt Anticipated Barriers to Discharge: None Identified Patient/Family Education Needs: Review discharge instructions, discuss Ask Me Three Transportation: Private vehicle Plan: Anticipate that Cathy will be discharged home when medically ready. She will have a PT consult prior to discharge, as requested by CM. Cathy may require new HH services. She will f/u with her PCP and continue per her plan of care. Cathy will transport home in a private vehicle with her son. CM will continue to follow and to update the plan as needed. Social Determinants of Health Screening Social Determinants of Health last assessed: 05/14/24 Will the Patient Participate in the Screening?: Yes Do you worry about having a steady place to live?: no Problems where you live: no known problems In the past 12 months, have you had to go without electric, gas, oil or water in your home?: no Have you or anyone in your house had to go without enough food to eat?: no Has lack of transportation kept you from medical appointments or from doing things needed for daily living?: no Has anyone in your life made you feel unsafe or unsupported?: no How hard is it for you to pay for the very basics like food, housing, medical care, and heating? Would you say it is:: Not hard at all Do you want help finding or keeping work or a job?: I do not need or want help If for any reason you need help with day-to-day activities such as bathing, preparing meals, shopping, managing finances, etc., do you get the help you need?: I don?t need any help How often do you feel lonely or isolated from those around you?: Never Do you speak a language other than Thai at home?: No Does the patient want assistance with any of the above?: No PFSH All Active Problems (Updated 05/14/24 @ 06:52 by Andres Newsome) HTN (hypertension) (Chronic) Pancytopenia, acquired (Acute) COPD exacerbation (Acute) Pneumonia involving right lung (Acute) Influenza A (Acute) New daily persistent headache (Acute) wakes up with, gone by noon, pain radiates to right side of neck Abnormal weight loss (Acute) Recurrent pneumonia (Chronic) Frailty syndrome in geriatric patient (Chronic) Palliative care patient (Chronic) Palliative care is happy to urgently consult on this patient in ED and help with decisions needed at the time if staffing available. 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 Elevated urine sodium with episode of hyponatremia evaluated at [facility] 2019 GERD with esophagitis Erosive gastritis Pancreatitis Macular degeneration Hx of fracture of pelvis pt. 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 intestinal meta. or dysplasia Essential hypertension (01/14/13) Depressive disorder Atrophic vaginitis (08/19/11) Pt. states she is unsure Family history of GI malignancy Surgical History H/O sigmoidoscopy (~07/18/22) KNEE SURGERY (~05/2012) Abdominal hysterectomy EGD - MAC (04/22/17) Colonoscopy - MAC (04/22/17) Colonoscopy - MAC (~02/2012) Cholecystectomy Bladder Surgery Bilateral salpingectomy with oophorectomy Arthroplasty of knee (05/27/12) LEFT - Pt denies knee replacement Family History Mother , AGE 84 Heart disease Father , AGE 87 Stroke Heart disease Cancer Sister Stroke Brother Alcohol abuse Cancer Brother Cancer of kidney Son Hyperlipidemia Pulmonary disease Daughter Thyroid disease Daughter Cancer s/p hysterectomy Daughter No problems noted. Daughter No problems noted. Brother No problems noted. Maternal Grandfather No problems noted. Paternal Grandfather No problems noted. Maternal Grandmother No problems noted. Paternal Grandfather No problems noted. Social History Smoking/Tobacco Use Status: Former Tobacco Use tobacco type: cigarettes Quit Date: 03/17/97 Second Hand Exposure: Yes Smoking risk assessment performed?: Yes Alcohol Intake: never Drug use: Never Substance use type: does not use Adopted: No Caregiver/Support person: Yes (both boxes checked) Housing: house Number of Children: 5 Communication Needs: Hard of Hearing and Corrective Lenses Education Level: high school Do you need help understanding health information?: Always current occupation: none Pets and animals: No Sexually active: No Do you think of yourself as: straight/heterosexual Current gender identity: female What is your relationship status?: How often do you talk on the phone with friends or family?: decline to answer How often do you get together with friends or relatives?: decline to answer How often do you attend mormon or anabaptism services?: decline to answer Do you belong to any clubs or organized social groups?: no Panel score (0-1 are the most socially isolated patients): 0 What type of physical activity do you participate in: walking Carri/Presybeterian: No preference Special carri needs: No Seatbelt use: always Helmet use: No Drive intox 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 swing driver: No Firearms in home: No In current or past relationships, have you been: made to feel afraid Do you feel safe at home: Yes Readmission Within the Past 30 Days Yes or No: No
--- NOTE | 2024-05-14 11:30 | W.PC.ACHO ---
Registration Status: Primary Language: Preferred Language: ED Information & Data Chief Complaint RespSymp 05/14/24 04:16 Chief Complaint RespSymp 05/14/24 04:11 Triage Note Pt dx'd w/ PNA earlier this 05/14/24 04:11 week. On abx. Per son coughing constantly this AM, worse than before. 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) Hyperlipidemia History of tobacco use Gastroesophageal reflux disease with esophagitis Essential hypertension (01/14/13) Depressive disorder Atrophic vaginitis (08/19/11) Family history of GI malignancy (Last Reviewed 05/14/24 @ 06:47 by Andres Newsome) H/O sigmoidoscopy (~07/18/22) KNEE SURGERY (~05/2012) Abdominal hysterectomy EGD - MAC (04/22/17) Colonoscopy - MAC (04/22/17) Colonoscopy - MAC (~02/2012) Cholecystectomy Bladder Surgery Bilateral salpingectomy with oophorectomy Arthroplasty of knee (05/27/12) Most Recent Vital Signs Temperature 37.1 C 05/14/24 04:16 Temperature Source Temporal Artery Scan 05/14/24 04:16 Pulse 69 05/14/24 04:30 Pulse 69 05/14/24 04:30 Respiratory Rate 17 05/14/24 04:30 Respiratory Effort Short of Breath 05/14/24 04:16 Respiratory Depth Normal 05/14/24 04:16 Blood Pressure 174/60 H 05/14/24 04:16 Blood Pressure Mean 102 05/14/24 04:16 Blood Pressure Position Sitting 05/14/24 04:11 Pulse Oximetry 95 05/14/24 04:30 Oxygen Delivery Method Room Air 05/14/24 04:16 Oxygen Flow Rate 0 05/14/24 04:11 Pain Level 6 05/14/24 04:11 Allergies ciprofloxacin (From Cipro) Allergy (Intermediate, Verified 05/14/24 04:21) Lips and face burn, feels shaky, arm tingly codeine Adverse Reaction (Intermediate, Verified 05/14/24 04:21) Dizziness/Lightheade lovastatin Adverse Reaction (Intermediate, Verified 05/14/24 04:21) myalgias oxycodone Adverse Reaction (Intermediate, Verified 05/14/24 04:21) NAUSEA, GI UPSET azithromycin Adverse Reaction (Verified 05/14/24 04:21) cramping, anorexia Lips burn, flushed feeling, felt heart racing doxycycline Adverse Reaction (Verified 05/14/24 04:21) Nausea, Vomiting hydrocodone Adverse Reaction (Verified 05/14/24 04:21) unknown pt. states she does not remember her reaction to this medication. Precautions Isolation PUI 05/14/24 04:16 IV IV Catheter Type [Right Saline Lock Forearm] IV Catheter Gauge [Right 18 Forearm] Diet Orders Category Date Time Status Heart Healthy Eating [DIET] Nutrition 05/14/24 Breakfast Active Diagnostics 05/14/24 05/14/24 05/14/24 Range/Units 09:29 04:44 04:15 WBC 4.29 L (4.4-10.8) 10^3/uL RBC 3.84 L (3.93-5.22) 10^6/uL Hgb 11.6 (11.2-15.7) g/dL Hct 34.6 L (36.0-46.0) % MCV 90 (80-95) fL MCH 30.2 (27.0-33.0) pg MCHC 33.5 (32.0-36.0) % RDW 12.7 (11.7-14.6) % Plt Count 123 L (130-400) 10^3/uL MPV 10.8 (8.0-11.0) fL Immature Gran % 0.2 % Neutrophils % 68.1 % Lymphocytes % 17.7 % Monocytes % 13.5 % Eosinophils % 0.5 % Basophils % 0.0 % Nucleated RBC % 0.0 (0.0-0.3) % Absolute Neutrophils 2.92 (1.2-6.7) 10^3/uL Absolute Lymphocytes 0.76 L (1.2-3.4) 10^3/uL Absolute Monocytes 0.58 (0.1-0.8) 10^3/uL Absolute Eosinophils 0.02 (0.0-0.7) 10^3/uL Absolute Basophils 0.00 (0.0-0.2) 10^3/uL Sodium 130 L (136-145) mmol/L Potassium 4.7 (3.5-5.1) mmol/L Chloride 98 (98-107) mmol/L Carbon Dioxide 31.2 (21.0-32.0) mmol/L Anion Gap 0.8 L (3-11) mmol/L BUN 15 (7-18) mg/dL Creatinine 0.8 (0.55-1.02) mg/dL Est GFR (CKD-EPI 2020) 71.27 (mL/min/1.73m2) Glucose 106 (74-106) mg/dL Calcium 8.6 (8.5-10.1) mg/dL Magnesium 1.8 (1.8-2.4) mg/dL Total Bilirubin 0.39 (0.2-1.0) mg/dL AST 32 (15-37) U/L ALT 25 (14-59) U/L Alkaline Phosphatase 101 (46-116) U/L Total Protein 6.7 (6.4-8.2) g/dL Albumin 3.3 L (3.4-5.0) g/dL TSH Pending COVID-19 Source Nasopharynx SARS-CoV-2 (PCR) Negative (Negative) Influenza Type A (PCR) Positive A (Negative) Influenza Type B (PCR) Negative (Negative) RSV (PCR) Negative (Negative) Intake and Output - 24 Hour Total 05/14/24 04:08 thru 05/14/24 11:03 Intake Total 150 Output Total 250 Balance -100 Weight 53.07 kg Intake: IV 150 Output: Urine 250 Falls Risk Assessment History of Falls No History 05/14/24 04:16 Contributing Factors No Factors 05/14/24 04:16 Ambulatory Aids Independent 05/14/24 04:16 Tubes/Lines None 05/14/24 04:16 Gait Evaluation No gait disturbance 05/14/24 04:16 Cognition No cognitive impairment 05/14/24 04:16 Fall Total Score 0 05/14/24 04:16 Level of Risk Standard/Low Risk 05/14/24 04:16 Problems (Last Reviewed 05/14/24 @ 06:47 by Andres Newsome) HTN (hypertension) (Chronic) Pancytopenia, acquired (Acute) COPD exacerbation (Acute) Pneumonia involving right lung (Acute) Influenza A (Acute) v v v v v v v v v Sending and/or Receiving Nurses: Please use comment section below to note any information pertinent to the patient hand-off not included above. Information / Comments: Report received from: Sushila at [id number]
[2024-05-14] MEDS: Polyethylene Glycol 3350 17 GM PACKET PO (11:37)
[2024-05-14] MEDS: Aspirin E.C. 81 MG TABEC PO (11:38)
[2024-05-14] MEDS: Salt Supplement (BUFFERED) TAB 1 TAB PO ×3 (11:38→20:21)
[2024-05-14] MEDS: Enoxaparin 40 MG/0.4 ML SYR SC (11:38)
[2024-05-14] MEDS: Metoprolol 25 MG TAB PO ×2 (11:38→20:22)
[2024-05-14 13:12] LABS: TSH (W/Ref FT4) 3.56 uIU/mL (0.36-3.74)
[2024-05-14 13:50] LABS: Bilirubin Negative (Negative); Blood Negative (Negative); Clarity Clear (Clear); Glucose >=1000 mg/dL (Negative); Ketones Negative (Negative); Leukocyte Esterase Negative (Negative); Nitrite Negative (Negative); Specific Gravity 1.015 (1.005-1.025); Urobilinogen 0.2 mg/dL (Up to 0.2)
[2024-05-14 13:57] LABS: RBC Negative HPF (0-2); WBC 0-2 HPF (0-5)
[2024-05-14 13:58] LABS: Bacteria Few HPF (Negative); C & S Indicated? No; Casts Negative LPF (Negative); Crystals Negative HPF (Negative); Epithelial Cells Rare HPF (Negative); Mucus Trace (Negative); Other Cells Negative (Negative)
--- NOTE | 2024-05-14 16:03 | NUR.NOTE ---
patient arrived from ED around 1100, AxOx4, denies pain, VSS, sats stabls on room air, lung sounds clear to dim, PIV intact, tolerating food/PO intake, chair alarm set, bed alarm in place, urine sample sent, ambulates with SBA, denies further needs, oriented to staff and room, call lang in reachNursing Note:
[2024-05-14] MEDS: Simvastatin 10 MG TAB 5 MG PO (20:21)
[2024-05-14] MEDS: Oseltamivir 30 MG CAP PO (20:21)
[2024-05-14] MEDS: Famotidine 20 MG TAB PO (20:22)
[2024-05-14] MEDS: Normal Saline Flush 10 ML SYR IVP (20:26)
[2024-05-15] VITALS (7 sets, daily range): BP systolic 120–150; BP diastolic 51–79; PULSE 62–68; RESP 2–18; TEMP 36.2–36.5; O2SAT 93–99
[2024-05-15] MEDS: Albuterol/Ipratropium 3 ML UPD VIAL UPD (04:12)
[2024-05-15] MEDS: cefTRIAXone 1 GM/50 ML BAG IVPB (06:12)
[2024-05-15] MEDS: Normal Saline Flush 10 ML SYR IVP ×2 (06:12→08:19)
[2024-05-15] MEDS: DOXYCYCLINE 100 MG in Normal Saline 100 ML IVPB (06:13)
[2024-05-15 07:10] LABS: HCT 32.1 % (36.0-46.0); MCH 30.2 pg (27.0-33.0); MCHC 34.3 % (32.0-36.0); MCV 88 fL (80-95); MPV 11.4 fL (8.0-11.0); Platelet Count 126 10^3/uL (130-400); RBC 3.64 10^6/uL (3.93-5.22); RDW 12.5 % (11.7-14.6); RDW-SD 40.3 fL; WBC 8.02 10^3/uL (4.4-10.8)
[2024-05-15 07:24] LABS: ALT 27 U/L (14-59); AST 26 U/L (15-37); Albumin 3.2 g/dL (3.4-5.0); Alkaline Phosphatase 94 U/L (46-116); Anion Gap 6.2 mmol/L (3-11); BUN 17 mg/dL (7-18); Bilirubin, Total 0.39 mg/dL (0.2-1.0); CO2 29.8 mmol/L (21.0-32.0); CREATININE 0.9 mg/dL (0.55-1.02); Chloride 95 mmol/L (98-107); Estimated GFR 61.87 (mL/min/1.73m2); Glucose 108 mg/dL (74-106); Potassium 4.6 mmol/L (3.5-5.1); Sodium 131 mmol/L (136-145); Total Protein 6.5 g/dL (6.4-8.2)
[2024-05-15] MEDS: Refresh PLUS Eye Drops 0.4ml OP (08:18)
[2024-05-15] MEDS: Polyethylene Glycol 3350 17 GM PACKET PO (08:18)
[2024-05-15] MEDS: Salt Supplement (BUFFERED) TAB 1 TAB PO (08:19)
[2024-05-15] MEDS: Oseltamivir 30 MG CAP PO (08:19)
[2024-05-15] MEDS: Aspirin E.C. 81 MG TABEC PO (08:19)
[2024-05-15] MEDS: Metoprolol 25 MG TAB PO (08:19)
[2024-05-15] MEDS: Ferrous Sulfate 325 MG TAB PO (08:19)
--- NOTE | 2024-05-15 09:57 | DSE_ITS ---
Date of service: 05/15/24 Time of Service: 09:57 DS: Diagnosis Discharge Diagnosis (1) Influenza A: Status: Acute (2) Pneumonia involving right lung: Status: Acute (3) COPD exacerbation: Status: Acute (4) Pancytopenia, acquired: Status: Acute (5) HTN (hypertension): Status: Chronic Discharge Plan Disposition Patient Disposition: Home Condition: Improving Discharge Details Reason For Visit: Influenza A with Right Upper Lobe Infiltrate, COPD Admit Date/Time: 05/14/24 07:09 Admit Provider: Andres Newsome Attending Provider: Andres Newsome Primary Care Provider: Paloma BusbyAlvord Hospital Course Hospital Course: This is an 89-year-old female patient with past medical history of chronic hyponatremia, GERD, nicotine dependence, COPD, hypertension, pneumonia diagnosed on 05/10/2024 and failing outpatient treatment with doxycycline and cefpodoxime due to nausea presented to the ED on 05/14/2024 for evaluation of increased shortness of. Workup in the ED was significant for positive influenza A. The patient continued to receive IV ceftriaxone and doxycycline as well as methylprednisolone. Scheduled nebulizers and Tamiflu were initiated. Patient was admitted to the medical surgical floor for ongoing IV antibiotics and for evaluation management on influenza A infection, right-sided community-acquired pneumonia and COPD exacerbation. Today, the patient is well to ambulate in room without distress physical therapy recommendation for discharge are to resume outpatient physical therapy. Patient will be discharged home with resumption of her antibiotic regimen recommendation to use Zofran prior to taking her antibiotic if she feels nauseous. The patient should complete the whole course of doxycycline and cefpodoxime. A burst of prednisone and Tamiflu also ordered on discharge. Patient to follow-up with the primary care practitioner within 7 days of discharge to discuss the need for further discussion for treatment escalation in her home medicine regimen for COPD. Discussed with Dr. Childress Home Meds and New Rx's Prescriptions: New prednisone 20 mg Tablet 40 mg PO DAILY Qty: 8 0RF oseltamivir [Tamiflu] 75 mg capsule 75 mg PO DAILY Qty: 7 0RF Continued PreserVision AREDS 4,296 mcg-226 mg-90 mg capsule 1 cap PO BID albuterol sulfate 90 mcg/actuation HFA aerosol inhaler 1 - 2 inh IH Q6H PRN (Reason: shortness of breath or wheezing) Qty: 8.5 6RF ferrous sulfate 325 mg (65 mg iron) tablet,delayed release (DR/EC) 325 mg PO .QOD Qty: 45 4RF Thermotabs 287-180-15 mg tablet 1 tab PO TID polyethylene glycol 3350 [Miralax] 17 gram/dose powder 17 g PO DAILY (DME) Aerochamber MV Spacer See Rx Instructions .Route Qty: 1 0RF Rx Instructions: As directed metoprolol tartrate 25 mg tablet 25 mg PO BID Qty: 180 3RF triamcinolone acetonide 0.1 % cream 1 applic topical BID Qty: 30 0RF Rx Instructions: apply to urticaria prn cranberry fruit 400 mg tablet 850 mg PO DAILY Patient Comments: 04/15/24- per pt report Rx Instructions: administer with a meal estradiol 0.01 % (0.1 mg/gram) cream 1 g vaginal DAILY Qty: 42.5 2RF Patient Comments: takes mon, wed and fri Rx Instructions: local application daily for one week and then 3 times per week famotidine 20 mg tablet 20 mg PO QHS Qty: 90 3RF simvastatin 5 mg tablet 5 mg PO DAILY Qty: 90 3RF cefpodoxime 200 mg tablet 200 mg PO Q12H 7 Days Qty: 14 0RF Rx Instructions: must administer with a meal/food. Stop famotadine while taking this medication. doxycycline hyclate 100 mg tablet 100 mg PO BID Qty: 14 0RF ondansetron HCl 4 mg tablet 4 mg PO Q8H PRN (Reason: nausea and vomiting) Qty: 14 0RF Rx Instructions: Take 15-20 min prior to antibiotics Blink Tears 0.25 % drops 1 drp ophthalmic (eye) DAILY aspirin 81 mg Tablet,Delayed Release (Dr/Ec) 81 mg PO DAILY Qty: 0 0RF Discharge Instructions Referrals: Jason Huff NP [Primary Care Provider] - (Follow-up with your primary care provider within 7 days of discharge please) Activity:: Activity as Tolerated Equipment/Supplies:: No Equipment Needed Diet:: Heart healthy Discharge Orders Discharge Orders: Discharge Order (Routine); Ordered 05/15/24 Ordered By: Ladan Brock DS: Summary Time Spent with Patient providing and/or coordinating discharge services: Greater than 30 minutes Status at Discharge Functional status at discharge: independent ambulation Overall status at discharge: patient is progressing back to baseline Mental Status: mental status grossly normal Speech and Movement: speech and movement normal Mood: congruent mood Affect: normal affect Quality:SDOH Health Related Social Needs: No Data to Display Exam Narrative Exam Narrative: Alert oriented x 3, uncertain about date, nonfocal, S1-S2 no murmur regular heart clear lungs with diminished right lower/mid lobe, abdomen is nondistended soft and nontender, no CVA tenderness, ambulates around without distress on room air Psych Mental Status: mental status grossly normal Speech and Movement: speech and movement normal Mood: congruent mood Affect: normal affect DS: Data Vitals/I&O Vitals and I&O: Vital Signs Temperature 36.4 C L 05/15/24 07:26 Temperature Source Temporal Artery Scan 05/15/24 07:26 Pulse 67 05/15/24 07:26 Pulse 69 05/14/24 04:30 Respiratory Rate 16 05/15/24 07:26 Respiratory Effort Short of Breath 05/14/24 04:16 Respiratory Depth Normal 05/14/24 04:16 Blood Pressure 125/54 L 05/15/24 07:26 Blood Pressure Mean 102 05/14/24 04:16 Blood Pressure Position Sitting 05/14/24 04:11 Pulse Oximetry 99 05/15/24 09:22 Oxygen Delivery Method Room Air 05/15/24 09:22 Oxygen Flow Rate 0 05/15/24 09:22 Pain Level 0 05/15/24 07:26 Intake & Output 05/14/24 05/14/24 05/15/24 11:59 23:59 11:59 Intake Total 150 / 1090 940 / 1090 200 / 200 Output Total 250 / 400 150 / 400 700 / 700 Balance -100 / 690 790 / 690 -500 / -500 Weight 53.07 kg Intake: IV 150 / 350 200 / 350 200 / 200 Oral 740 / 740 Output: Urine 250 / 400 150 / 400 700 / 700 Other: Urine Color Yellow Yellow Urine Appearance Clear Clear Urine Odor Normal Normal Stool Size Moderate Stool Characteristics Soft Data Completed and Pending Labs on day of discharge: Labs from last 24 hours 05/15/24 05/14/24 05/14/24 06:32 13:35 04:44 WBC 8.02 RBC 3.64 L Hgb 11.0 L Hct 32.1 L MCV 88 MCH 30.2 MCHC 34.3 RDW 12.5 Plt Count 126 L MPV 11.4 H Sodium 131 L Potassium 4.6 Chloride 95 L Carbon Dioxide 29.8 Anion Gap 6.2 BUN 17 Creatinine 0.9 Est GFR (CKD-EPI 2020) 61.87 Glucose 108 H Calcium 9.0 Total Bilirubin 0.39 AST 26 ALT 27 Alkaline Phosphatase 94 Total Protein 6.5 Albumin 3.2 L TSH 3.56 Urine Color Yellow Urine Clarity Clear Urine pH 6.0 Ur Specific [place] 1.015 Urine Protein Trace Urine Ketones Negative Urine Blood Negative Urine Nitrite Negative Urine Bilirubin Negative Urine Urobilinogen 0.2 Ur Leukocyte Esterase Negative Urine RBC Negative Urine WBC 0-2 Ur Epithelial Cells Rare Urine Crystals Negative Urine Bacteria Few Urine Casts Negative Urine Mucus Trace Urine Other Negative Ur Culture Indicated? No Urine Glucose >=1000 H PFSH All Active Problems (Updated 05/14/24 @ 06:52 by Andres Newsome) HTN (hypertension) (Chronic) Pancytopenia, acquired (Acute) COPD exacerbation (Acute) Pneumonia involving right lung (Acute) Influenza A (Acute) New daily persistent headache (Acute) wakes up with, gone by noon, pain radiates to right side of neck Abnormal weight loss (Acute) Recurrent pneumonia (Chronic) Frailty syndrome in geriatric patient (Chronic) Palliative care patient (Chronic) Palliative care is happy to urgently consult on this patient in ED and help with decisions needed at the time if staffing available. 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 Elevated urine sodium with episode of hyponatremia evaluated at [facility] 2019 GERD with esophagitis Erosive gastritis Pancreatitis Macular degeneration Hx of fracture of pelvis pt. 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 intestinal meta. or dysplasia Essential hypertension (01/14/13) Depressive disorder Atrophic vaginitis (08/19/11) Pt. states she is unsure Family history of GI malignancy Surgical History H/O sigmoidoscopy (~07/18/22) KNEE SURGERY (~05/2012) Abdominal hysterectomy EGD - MAC (04/22/17) Colonoscopy - MAC (04/22/17) Colonoscopy - MAC (~02/2012) Cholecystectomy Bladder Surgery Bilateral salpingectomy with oophorectomy Arthroplasty of knee (05/27/12) LEFT - Pt denies knee replacement Family History Mother , AGE 84 Heart disease Father , AGE 87 Stroke Heart disease Cancer Sister Stroke Brother Alcohol abuse Cancer Brother Cancer of kidney Son Hyperlipidemia Pulmonary disease Daughter Thyroid disease Daughter Cancer s/p hysterectomy Daughter No problems noted. Daughter No problems noted. Brother No problems noted. Maternal Grandfather No problems noted. Paternal Grandfather No problems noted. Maternal Grandmother No problems noted. Paternal Grandfather No problems noted. Social History Smoking/Tobacco Use Status: Former Tobacco Use tobacco type: cigarettes Quit Date: 03/17/97 Second Hand Exposure: Yes Smoking risk assessment performed?: Yes Alcohol Intake: never Drug use: Never Substance use type: does not use Adopted: No Caregiver/Support person: Yes (both boxes checked) Housing: house Number of Children: 5 Communication Needs: Hard of Hearing and Corrective Lenses Education Level: high school Do you need help understanding health information?: Always current occupation: none Pets and animals: No Sexually active: No Do you think of yourself as: straight/heterosexual Current gender identity: female What is your relationship status?: How often do you talk on the phone with friends or family?: decline to answer How often do you get together with friends or relatives?: decline to answer How often do you attend jehovah's witness or shinto services?: decline to answer Do you belong to any clubs or organized social groups?: no Panel score (0-1 are the most socially isolated patients): 0 What type of physical activity do you participate in: walking Carri/Anabaptism: No preference Special carri needs: No Seatbelt use: always Helmet use: No Drive intox 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 belly dump driver: No Firearms in home: No In current or past relationships, have you been: made to feel afraid Do you feel safe at home: Yes Time Spent with Patient Time Spent with Patient: 70-84 minutes4 Time was spent: preparing to see the patient(eg.review tests), obtaining and/or reviewing separately otained hiistory, ordering medications,tests, procedures, referring, communicating with other health wound care coordinator, indepentently interpreting results, counseling the patient and care coordination
[2024-05-15] MEDS: predniSONE 20 MG TAB 40 MG PO (11:48)
[2024-05-15] MEDS: Albuterol 2.5 MG/3 ML INH SOLN VIAL UPD (12:34)
--- NOTE | 2024-05-15 13:38 | PT.INIE ---
PT Notes Visit Reasons: Influenza A with Right Upper Lobe Infiltrate, COPD Inpatient Physical Therapy Evaluation Date: May 15, 2024 Referring Doctor: Ladan BISHOP PT Orders: PT CONSULT: Safety consult for discharge Precautions: Activity as tolerated Patient Profile/Admitting Diagnosis: Influenza A with right upper lobe infiltrate, COPD. This is an 89-year-old female patient who has history of respiratory infection which was diagnosed 05/10/2024 as pneumonia being started on cefpodoxime and doxycycline. She has stopped cephalexin because of nausea and persistent cough and difficulty breathing. She is not hypoxic. She does use inhalers at home only for rescue. She has a diagnosis of COPD without maintenance therapy. She is very hard of hearing. Because of her persistent symptoms and inability to improve at home, she was evaluated in the ED and found to have persistent infiltrates over the right upper lobe by ED provider. She also tested positive for flu. PMHX: PFSH All Active Problems (Updated 05/14/24 @ 06:52 by Andres Newsome) HTN (hypertension) (Chronic) Pancytopenia, acquired (Acute) COPD exacerbation (Acute) Pneumonia involving right lung (Acute) Influenza A (Acute) New daily persistent headache (Acute) wakes up with, gone by noon, pain radiates to right side of neckAbnormal weight loss (Acute) Recurrent pneumonia (Chronic) Frailty syndrome in geriatric patient (Chronic) Palliative care patient (Chronic) Palliative care is happy to urgently consult on this patient in ED and help with decisions needed at the time if staffing available.Urinary incontinence (Chronic) SIADH (syndrome of inappropriate ADH production) (Chronic) Generalized weakness (Chronic) Constipation (Chronic) LUQ abdominal pain (Chronic) Serrated adenoma of colon (Chronic ~07/18/22) Neck pain on right side (Chronic) Dermatitis (Chronic) Anemia (Chronic) Pulmonary nodules (Chronic) 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 Elevated urine sodium with episode of hyponatremia evaluated at [facility] 2020GERD with esophagitis Erosive gastritis Pancreatitis Macular degeneration Hx of fracture of pelvis pt. 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 intestinal meta. or dysplasia Essential hypertension (01/14/13) Depressive disorder Atrophic vaginitis (08/19/11) Pt. states she is unsure Family history of GI malignancy Surgical History H/O sigmoidoscopy (~07/18/22) KNEE SURGERY (~05/2012) Abdominal hysterectomy EGD - MAC (04/22/17) Colonoscopy - MAC (04/22/17) Colonoscopy - MAC (~02/2012) Cholecystectomy Bladder Surgery Bilateral salpingectomy with oophorectomy Arthroplasty of knee (05/27/12) LEFT - Pt denies knee replacement Social History/Home Situation: Lives in single level dwelling with ramp upon entry. Lives with adult son. Equipment Owned/DME: Front wheel walker and cane but does not use at baseline Subjective: Patient agreeable to PT consult. States she is not sure when she is discharged home. Her son is in attendance for evaluation. Reports she is in no discomfort. Objective: General Observation: Sitting up in bedside chair. IV port right forearm Mental Status: Alert to person and place but not time. Pain: 0/10 but localizes electric type bursts throughout her body at random episodes. Vital Signs: Monitor via nursing ROM: Right Upper Extremity: Glenohumeral joint flexion 120 degrees, abduction 110 degrees, elbow flexion and extension within normal limits. Left Upper Extremity: Glenohumeral joint flexion 120 degrees, abduction 110 degrees, elbow flexion and extension within normal limits. Right Lower Extremity: Hip flexion, abduction, knee extension and flexion within functional limits Left Lower Extremity: Hip flexion and abduction, knee flexion and extension within functional limits Strength: Right Upper Extremity: Grossly 4/5 throughout glenohumeral joint flexion, abduction, elbow flexion and extension. 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 Sit?stand: Independent Stand?sit: Independent Gait: Ambulate 300 feet x 1 with no assistive device and standby assist. She negotiates three 4 inch stairs and to 6 and stairs x 3 with verbal cues for using railing. Balance: Negative Romberg normal normal Static Sitting: Normal Dynamic Sitting: Normal Static Standing: Good Dynamic Standing: Fair Special Tests: Mobility Limitations Standardized Measure [facility] 6 clicks Basic Mobility Inpatient Short Form: Raw Score: 24 Standardized Score: CMS Score: 0% Informed Consent/Education: Patient instructed in purpose of PT consult and plan of care. Assessment: Patient is an 89 year old female referred to physical therapy services with the diagnosis of influenza A with right upper lobe infiltrate, COPD. Patient presents with clinical signs and symptoms consistent with above diagnosis. Currently not displaying any impairment level findings. Patient does not need formal PT and is performing functional mobility, gait and stair negotiation independently and safely. Currently participating in outpatient PT which she is recommended to resume when she gets home. Missed her last couple appointments due to her illness. Patient is assessed as a X Low 13857 [] Moderate 66784 [] High 07405 complexity based on the following: History: See comorbidities and social history Examination: See above for functional level Presentation: Stable Decision Making: Low Goals: Not needed. Patient and no need for formal PT. Plan of Care/Treatment Plan: 1-2x/day, 7 days/week x 1 week. Plan of care has been reviewed with the LUBE MAN providing the service under Physical Therapy direction. Initiate Physical Therapy intervention for strengthening, bed mobility, transfers, gait, stairs, balance training, use of assistive device. DISCHARGE RECOMMENDATIONS: Patient to resume outpatient PT which she was participating in prior to hospital admittance. [] Home with no services [] [] Home with services [specify] X Home with outpatient PT [resume] [] SNF for continued rehabilitation [] [] Lead Person Care [] [] SNF versus LTC based on ability to participate and progress [] TREATMENT CODE/TIME: Initial evaluation 9716 1-25 minutes 1245?110 Thank you for referral. Mateusz Muro PT, DPT Disclaimer: This note was created using [employer] voice recognition software. It was reviewed for major content. However, there may be multiple small discrepancies and errors due to the voice recognition aspects of the software.
--- NOTE | 2024-05-15 15:19 | PDOC.CMDIS ---
Date of service: 05/15/24 Time of Service: 15:22 LACE Index Scoring Tool Questions: Length of Stay (in days): 1 Was the patient admitted via the E.D.?: Yes Comorbidities: Cerebrovascular Disease and Chronic Pulmonary Disease E.D. Visits: 3 Answers: Total Score: 10 Risk of Readmission: High Risk Care Management Discharge Plan Reason for Hospitalization: flu, pneumonia Discharge Plan: Cathy was discharged home today with no new services. She will continue at outpatient PT and f/u with her PCP. Cathy will complete her course of tamiflu and prednisone. Cathy was transported home by her son,Grant. Patient/Family Education Needs: Review of discharge instructions, activity, limitations and discuss ask me 3. SDOH Health Related Social Needs: No Data to Display
== END 2024-05-15 15:48 | disposition home or self-care (01) | DRG 194 ==
LOC: ER 05:41 → EDHOLD 09:21 → MS 12:10
PROVIDERS: Admitting Provider Family Medicine; Emergency Provider Emergency Medicine; PCP Nurse Practitioner Family; Responsible Provider Nurse Practitioner Acute Care; Visit Provider Family Medicine
DX: J10.00 Influenza due to other identified influenza virus with unspecified type of pneumonia (principal); D61.818 Other pancytopenia; J44.0 Chronic obstructive pulmonary disease with (acute) lower respiratory infection; J44.1 Chronic obstructive pulmonary disease with (acute) exacerbation; E22.2 Syndrome of inappropriate secretion of antidiuretic hormone; J18.9 Pneumonia, unspecified organism; I10 Essential (primary) hypertension; Z79.899 Other long term (current) drug therapy; K21.00 Gastro-esophageal reflux disease with esophagitis, without bleeding; Z86.73 Personal history of transient ischemic attack (TIA), and cerebral infarction without residual deficits; F32.A Depression, unspecified; Z80.0 Family history of malignant neoplasm of digestive organs; E87.5 Hyperkalemia; Z87.891 Personal history of nicotine dependence; Z66 Do not resuscitate; R54 Age-related physical debility
CPT/HCPCS: 00123; 80053; 85027; 87637; 93005; 94640; 96365; 96368; 96372; 96375; 97161; 99285; J1650; 71046; 81003; 81015; 83735; 84443; 85025; 93010; 94760; 99223; 99239; J0696; J2919; J7512; J7613; J7620

== ENCOUNTER 2024-05-23 08:58 | Emergency (ER) | payer MEDICARE, SELFPAY ==
[2024-05-23] VITALS (29 sets, daily range): BP systolic 158–192; BP diastolic 55–72; PULSE 61–85; RESP 12–30; TEMP 36.3–36.4; O2SAT 94–99
--- NOTE | 2024-05-23 09:15 | DI.CT_ITS ---
Exam(s) CT ABDOMEN PELVIS W EXAM: CT ABDOMEN PELVIS W CLINICAL HISTORY: Epigastric/LLQ pain. TECHNIQUE: Imaging Protocol: Axial computed tomography images with coronal and sagittal reformatted images were created and reviewed CONTRAST MATERIAL: Intravenous: Omnipaque-350 75cc Oral: None COMPARISON: CT CT ABDOMEN PELVIS W from 03/29/2024 FINDINGS: VISUALIZED LUNG BASES: No nodules nor pleural effusions evident. ABDOMEN: There is no ascites. LIVER: There are no focal hepatic lesions evident. There are mildly dilated intrahepatic ducts in th is elderly patient has had prior cholecystectomy. CBD diameter is upper normal. There are no radiop aque calculi evident within the CBD. GALLBLADDER/BILIARY: The gallbladder is surgically absent. CBD is not dilated. PANCREAS: No evidence of pancreatic mass nor dilatation of the pancreatic duct. SPLEEN: Spleen is not enlarged. No obvious intrasplenic lesions. Splenic and portal veins are paten t. ADRENALS: There are no significant adrenal masses. KIDNEYS:z No solid renal masses. No calculi nor hydronephrosis.. ABDOMINAL AORTA: Abdominal aorta is not enlarged. LYMPH NODES:There is no retroperitoneal nor paraaortic adenopathy. ABDOMINAL WALL: The abdominal aorta is heavily calcified but not enlarged. Common iliac arteries are also not enlarged. GI: There is diverticulosis of the sigmoid but no evidence of obvious acute diverticulitis. There is a mesenteric swirl sign in the central lower abdomen-upper pelvis. No evidence of vascular thrombosis there are fluid-filled small bowel loops in the lower pelvis which exhibit upper normal di ameters. PELVIS: GI: No evidence of appendicitis. LYMPH NODES: There is no intrapelvic nor inguinal adenopathy. REPRODUCTIVE: Uterus is atrophic or surgically absent. URINARY BLADDER: There is gas in the urinary bladder, possibly related to recent instrumentation. Th e bladder otherwise appears age-appropriate. OSSEOUS: There is a Schmorl's node invagination in the mid inferior endplate of L3 vertebral body. N o true compression fracture at this level nor elsewhere in the lumbar spine. There is mild degenerat jerry anterolisthesis of L4 upon L5. No pars defects evident at this level nor at the L5 level. There is abundant beam hardening artifact from fusion hardware across the symphysis pubis . No acute pubic rami fracture evident. There is a healed fracture at the mid level of the right infer ior pubic ramus. No hip fractures identified. There is ankylosis of the sacroiliac joints noted. IMPRESSION: 1. Sigmoid diverticulosis without evidence of obvious acute diverticulitis. 2. Is small amount of air-gas in the urinary bladder which may be from recent instrumentation. The p artially visualized urinary bladder wall does not appear thickened although partially obscured by art ifact from the adjacent hardware in the symphysis pubis. 3. There is a mild mesenteric swirl sign in the central lower abdomen-upper pelvis. There is no evid ence of bowel obstruction, free air, nor abscess. 4. Other findings as above. RADIATION DOSE DELIVERED: 374.56mGy.cm Total DLP DATA REPOSITORY: All CT scans at this facility are submitted to the National Radiology Data Registry (NRDR) Dose Index Registry (DIR) with the [employer] (ACR). RADIATION OPTIMIZATION: All CT scans at this facility use at least one of these dose optimization te chniques: automated exposure control; mA and/or kV adjustment per patient size (includes targeted exa ms where dose is matched to clinical indication); or iterative reconstruction.
--- NOTE | 2024-05-23 09:30 | W.ED.GENAD ---
Discharge Plan Disposition Patient Disposition: Home Condition: Stable Discharge Details Clinical Impression: Bacterial vaginosis, Pancreatitis Primary Care Provider: Jason Huff ED Provider: Donna Brower Home Meds and New Rx's Prescriptions: New metronidazole 500 mg tablet 500 mg PO BID 6 Days Qty: 12 0RF ondansetron 4 mg tablet,disintegrating 4 mg PO Q8H PRNQty: 7 0RF No Action PreserVision AREDS 4,296 mcg-226 mg-90 mg capsule 1 cap PO BID ferrous sulfate 325 mg (65 mg iron) tablet,delayed release (DR/EC) 325 mg PO .QOD Qty: 45 4RF Thermotabs 287-180-15 mg tablet 1 tab PO TID polyethylene glycol 3350 [Miralax] 17 gram/dose powder 17 g PO DAILY (DME) Aerochamber MV Spacer See Rx Instructions .Route Qty: 1 0RF Rx Instructions: As directed metoprolol tartrate 25 mg tablet 25 mg PO BID Qty: 180 3RF triamcinolone acetonide 0.1 % cream 1 applic topical BID Qty: 30 0RF Rx Instructions: apply to urticaria prn cranberry fruit 400 mg tablet 850 mg PO DAILY Patient Comments: 04/15/24- per pt report Rx Instructions: administer with a meal estradiol 0.01 % (0.1 mg/gram) cream 1 g vaginal DAILY Qty: 42.5 2RF Patient Comments: takes mon, wed and fri Rx Instructions: local application daily for one week and then 3 times per week famotidine 20 mg tablet 20 mg PO QHS Qty: 90 3RF simvastatin 5 mg tablet 5 mg PO DAILY Qty: 90 3RF ondansetron HCl 4 mg tablet 4 mg PO Q8H PRN (Reason: nausea and vomiting) Qty: 14 0RF Rx Instructions: Take 15-20 min prior to antibiotics albuterol sulfate 90 mcg/actuation HFA aerosol inhaler 1 - 2 inh IH Q6H PRN (Reason: shortness of breath or wheezing) Qty: 8.5 6RF Blink Tears 0.25 % drops 1 drp ophthalmic (eye) DAILY aspirin 81 mg Tablet,Delayed Release (Dr/Ec) 81 mg PO DAILY Qty: 0 0RF Discharge Instructions Instructions: Acute pancreatitis Additional Instructions: You were seen in the emergency department today for evaluation of vaginal burning and abdominal pain. You are found to have bacterial vaginosis, an overgrowth of bacteria that can be caused by taking antibiotics. I have sent a prescription for antibiotics to your pharmacy, you will take this twice a day for total of 7 days, please take all the medication until it is gone, even if you start to feel better. You were also found to have mild or early pancreatitis, and inflammation of your pancreas that can be quite painful. We were able to ensure that you are able to maintain your hydration, please continue to drink lots of fluids at home, and some people find that a clear liquid diet for the first few days can improve their symptoms. I provided you with a medication called Zofran which you can use for nausea to ensure that you stay hydrated. Please use Tylenol for pain. Return to the emergency department if you develop fever or chills, shortness of breath, sudden or severe worsening of your abdominal pain, or any other symptoms that cause you concern. Please follow-up with your primary care provider in the next few days to discuss this visit and any symptoms that change, worsen, or persist. Thank you for allowing us to be part of your care. Discharge Data Discharge Date/Time-TO BE ENTERED AT DEPARTURE: 05/23/24 12:21 HPI General Mode of arrival: ambulatory. Date/Time Provider Initiated Documentation: 05/23/24 09:00. Limitations to Documentation: no limitations. Information obtained by: patient, family and old records reviewed. HPI Narrative: HPI: This is an 89-year-old female patient with past medical history significant for hypertension, COPD, incontinence, anemia, who was recently admitted to this hospital for inpatient treatment of pneumonia, presenting for evaluation of vaginal burning and abdominal pain with nausea and vomiting. The patient was seen by her PCP a few days ago, she has completed her outpatient course of doxycycline and cefpodoxime, and from a respiratory standpoint has not had any significant worsening of her shortness of breath or cough. Yesterday afternoon she was feeling quite well, but overnight she began to feel a sensation of burning in her vagina that causes sharp pains to radiate up into her abdomen. She has noted occasional clear to whitish discharge, no vaginal bleeding reported. She reports that she has not noted pain with urination, but does have a history of frequent UTI given her incontinence. The patient has an extensive abdominal history including cholecystectomy, uterine prolapse, status post hysterectomy with oophorectomy, and history of diverticulitis. This morning she was having nausea with dry heaving, prompting her presentation to care. She has had intermittent nausea and vomiting for which she takes occasional Zofran. Exam: Gen: Awake and alert, in no apparent distress HEENT: Non-icteric sclera Neck: Supple Lungs: No apparent respiratory distress, normal respiratory effort. Lung sounds clear and equal bilaterally without wheezes, rhonchi, rales CV: Appears well perfused, heart with regular rate and rhythm, strong distal pulses, no murmurs auscultated Abdomen: Non-distended, soft, tender to palpation in the epigastric region and left lower quadrant, patient jumps during palpation of this area without true rigidity or guarding. No CVA tenderness : External vaginal examination supervised by NADJA Goddard, normal external female genitalia with scant white discharge noted on the external aspect of the labia. MSK: Moves 4 extremities without apparent limitation in ROM, no peripheral edema note Skin: Visualized skin without rashes, cyanosis. Neuro: Normal Gait, no obvious focal deficits or facial asymmetry. Speaks in full, clear sentences. Psych: Appropriate for situation. MDM: This is an 89-year-old female patient presenting for evaluation of vaginal burning and abdominal pain with nausea and vomiting. Differential includes but is not limited to vaginal yeast infection particularly given recent antibiotic use, also considered bacterial vaginosis, urinary tract infection, vaginal dryness in the setting of postmenopausal and oophorectomy hormonal changes. Given the patient's abdominal tenderness, I am also concerned for diverticulitis, pancreatitis, gastritis/PUD, considered bowel obstruction given the patient's extensive surgical history and her report of difficulty passing stool. Vaginal pathogen screen was sent, though certainly if results of this are delayed would treat empirically with a single dose of fluconazole for presumed yeast infection in the setting of extensive antibiotic use. We will also obtain laboratory studies to include CBC, CMP, magnesium, troponin, lipase, and urinalysis. I will obtain a CT abdomen pelvis with contrast to evaluate the cause of the patient's notable left lower quadrant and epigastric pain. At this time, at rest the patient is not desiring of any medications for management of pain or nausea. ED Course: I independently interpreted the laboratory studies, which show no significant leukocytosis, anemia, or thrombocytopenia. The chemistry panel is without evidence of electrolyte abnormality, kidney dysfunction, or liver injury. Lipase is elevated just above 3 times the upper limit of normal at 239. Troponin is negative without delta change on 1 hour recheck, UA noninfectious. Vaginal pathogen screen positive for Gardnerella/bacterial vaginosis. CT was evaluated by myself, shows no significant abnormalities to account for the patient's symptoms, and specifically shows a normal pancreas. The patient does have a paucity of abdominal fat which does limit evaluation of fat stranding. I am most concerned for a mild pancreatitis, patient is status post cholecystectomy and does not drink alcohol, was p.o. challenged in the emergency department was able to tolerate oral intake of clears without nausea or vomiting. Given her lack of hemodynamic instability and CT changes it is reasonable to pursue outpatient treatment for her mild pancreatitis, and additionally I started her on metronidazole twice daily for her bacterial vaginosis. I did provide her with a short prescription for Zofran to encourage good hydration, and recommended outpatient follow-up with her primary care provider. At this time, the patient has had a full medical evaluation and is safe for discharge to home. They are hemodynamically stable, ambulatory, and tolerating PO. They are understanding of the follow-up plan and return precautions. They left our facility without incident. Donna Brower MD Related Data Home Medications ?Medication ?Instructions ?Recorded ?Confirmed polyethylene glycol 400 0.25 % eye 1 drp ophthalmic (eye) DAILY 03/10/23 05/23/24 drops (Blink Tears) macular degeneration inhalational spacing device #1 ea 05/21/23 05/23/24 (Aerochamber MV spacer) ferrous sulfate 325 mg (65 mg 325 mg PO .QOD #45 tabs 05/30/23 05/23/24 iron) tablet,delayed release polyethylene glycol 3350 17 17 g PO DAILY 06/05/23 05/23/24 gram/dose oral powder (Miralax) sodium chloride-potassium chloride 1 tab PO TID 06/05/23 05/23/24 287 mg-180 mg-15 mg tablet (Thermotabs) vitamins A,C,Q-yzxk-jyeyol 4,296 1 cap PO BID 09/29/23 05/23/24 mcg-226 mg-90 mg capsule (PreserVision AREDS) estradiol 0.01% (0.1 mg/gram) 1 g vaginal DAILY #42.5 grams 12/02/23 05/23/24 vaginal cream famotidine 20 mg tablet 20 mg PO QHS #90 tabs 01/13/24 05/23/24 aspirin 81 mg tablet,delayed 81 mg PO DAILY #0 tabs 01/16/24 05/23/24 release cranberry fruit 400 mg tablet 850 mg PO DAILY 04/15/24 05/23/24 simvastatin 5 mg tablet 5 mg PO DAILY #90 tabs 04/27/24 05/23/24 metoprolol tartrate 25 mg tablet 25 mg PO BID #180 tab-caps 04/30/24 05/23/24 triamcinolone acetonide 0.1 % 1 applic topical BID #30 grams 04/30/24 05/23/24 topical cream ondansetron HCl 4 mg tablet 4 mg PO Q8H PRN nausea and 05/10/24 05/23/24 vomiting #14 tabs albuterol sulfate 90 mcg/actuation 1 - 2 inh inhalation Q6H PRN 05/17/24 05/23/24 aerosol inhaler shortness of breath or wheezing #8.5 grams metronidazole 500 mg tablet 500 mg PO BID 6 days #12 tabs 05/23/24 ondansetron 4 mg disintegrating 4 mg PO Q8H PRN #7 tabs 05/23/24 tablet Previous Rx's ?Medication ?Instructions ?Recorded inhalational spacing device #1 ea 05/21/23 (Aerochamber MV spacer) ferrous sulfate 325 mg (65 mg 325 mg PO .QOD #45 tabs 05/30/23 iron) tablet,delayed release estradiol 0.01% (0.1 mg/gram) 1 g vaginal DAILY #42.5 grams 12/02/23 vaginal cream famotidine 20 mg tablet 20 mg PO QHS #90 tabs 01/13/24 aspirin 81 mg tablet,delayed 81 mg PO DAILY #0 tabs 01/16/24 release simvastatin 5 mg tablet 5 mg PO DAILY #90 tabs 04/27/24 metoprolol tartrate 25 mg tablet 25 mg PO BID #180 tab-caps 04/30/24 triamcinolone acetonide 0.1 % 1 applic topical BID #30 grams 04/30/24 topical cream ondansetron HCl 4 mg tablet 4 mg PO Q8H PRN nausea and 05/10/24 vomiting #14 tabs albuterol sulfate 90 mcg/actuation 1 - 2 inh inhalation Q6H PRN 05/17/24 aerosol inhaler shortness of breath or wheezing #8.5 grams metronidazole 500 mg tablet 500 mg PO BID 6 days #12 tabs 05/23/24 ondansetron 4 mg disintegrating 4 mg PO Q8H PRN #7 tabs 05/23/24 tablet Allergies Allergy/AdvReac Type Severity Reaction Status Date / Time ciprofloxacin (From Cipro) Allergy Intermediate Lips and Verified 05/23/24 09:07 face burn, feels shaky, arm tingly codeine AdvReac Intermediate Dizziness/L Verified 05/23/24 09:07 ightheade lovastatin AdvReac Intermediate myalgias Verified 05/23/24 09:07 oxycodone AdvReac Intermediate NAUSEA, GI Verified 05/23/24 09:07 UPSET azithromycin AdvReac cramping, Verified 05/23/24 09:07 anorexia doxycycline AdvReac Nausea, Verified 05/23/24 09:07 Vomiting hydrocodone AdvReac unknown Verified 05/23/24 09:07 General Stated Complaint: Abd Prob MELINDA: 3 Course Vital Signs Vital signs: Vital Signs Temperature 36.3 C L 05/23/24 09:01 Pulse 77 05/23/24 09:01 Respiratory Rate 18 05/23/24 09:01 Blood Pressure 183/60 H 05/23/24 09:01 Pulse Oximetry 97 05/23/24 09:01 Temperature 36.3 C L 05/23/24 09:01 Temperature Source Tympanic 05/23/24 09:01 Pulse 76 05/23/24 09:16 Respiratory Rate 18 05/23/24 09:01 Blood Pressure 183/60 H 05/23/24 09:01 Blood Pressure Position Sitting 05/23/24 09:01 Pulse Oximetry 96 05/23/24 09:16 Oxygen Delivery Method Room Air 05/23/24 09:01 Oxygen Flow Rate 0 05/23/24 09:01 Pain Level 8 05/23/24 09:14 Medical Decision Making Quality:SDOH Health Related Social Needs: No Data to Display PFSH All Active Problems (Updated 05/23/24 @ 11:59 by Donna Brower MD) Pancreatitis (Chronic) Bacterial vaginosis (Acute) HTN (hypertension) (Chronic) COPD exacerbation (Acute) Pneumonia involving right lung (Acute) Influenza A (Acute) New daily persistent headache (Acute) wakes up with, gone by noon, pain radiates to right side of neck Abnormal weight loss (Acute) Recurrent pneumonia (Chronic) Frailty syndrome in geriatric patient (Chronic) Palliative care patient (Chronic) Palliative care is happy to urgently consult on this patient in ED and help with decisions needed at the time if staffing available. 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 Elevated urine sodium with episode of hyponatremia evaluated at [facility] 2019 GERD with esophagitis Erosive gastritis Perforated diverticulum Shingles Pancreatitis Macular degeneration Hx of fracture of pelvis pt. 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 intestinal meta. or dysplasia Essential hypertension (01/14/13) Depressive disorder Atrophic vaginitis (08/19/11) Pt. states she is unsure Family history of GI malignancy Surgical History H/O sigmoidoscopy (~07/18/22) KNEE SURGERY (~05/2012) Abdominal hysterectomy EGD - MAC (04/22/17) Colonoscopy - MAC (04/22/17) Colonoscopy - MAC (~02/2012) Cholecystectomy Bladder Surgery Bilateral salpingectomy with oophorectomy Arthroplasty of knee (05/27/12) LEFT - Pt denies knee replacement Family History Mother , AGE 84 Heart disease Father , AGE 87 Stroke Heart disease Cancer Sister Stroke Brother Alcohol abuse Cancer Brother Cancer of kidney Son Hyperlipidemia Pulmonary disease Daughter Thyroid disease Daughter Cancer s/p hysterectomy Daughter No problems noted. Daughter No problems noted. Brother No problems noted. Maternal Grandfather No problems noted. Paternal Grandfather No problems noted. Maternal Grandmother No problems noted. Paternal Grandfather No problems noted. Social History Smoking/Tobacco Use Status: Former Tobacco Use tobacco type: cigarettes Quit Date: 03/17/97 Second Hand Exposure: Yes Smoking risk assessment performed?: Yes Alcohol Intake: never Drug use: Never Substance use type: does not use Adopted: No Caregiver/Support person: Yes (both boxes checked) Housing: house Number of Children: 5 Communication Needs: Hard of Hearing and Corrective Lenses Education Level: high school Do you need help understanding health information?: Always current occupation: none Pets and animals: No Sexually active: No Do you think of yourself as: straight/heterosexual Current gender identity: female What is your relationship status?: How often do you talk on the phone with friends or family?: decline to answer How often do you get together with friends or relatives?: decline to answer How often do you attend pentecostal or spiritism services?: decline to answer Do you belong to any clubs or organized social groups?: no Panel score (0-1 are the most socially isolated patients): 0 What type of physical activity do you participate in: walking Carri/Anabaptist: No preference Special carri needs: No Seatbelt use: always Helmet use: No Drive intox 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
[2024-05-23 09:50] LABS: Abs Immature Grans 0.08 10^3/uL (0.0-0.06); Absolute Basophil Count 0.02 10^3/uL (0.0-0.2); Absolute Eosinophil Count 0.05 10^3/uL (0.0-0.7); Absolute Lymphocyte Count 1.12 10^3/uL (1.2-3.4); Absolute Monocyte Count 0.98 10^3/uL (0.1-0.8); Absolute Neutrophil Count 5.77 10^3/uL (1.2-6.7); Basophils % 0.2 %; Eosinophils % 0.6 %; HCT 35.7 % (36.0-46.0); HGB 11.7 g/dL (11.2-15.7); MCH 29.8 pg (27.0-33.0); MCHC 32.8 % (32.0-36.0); MCV 91 fL (80-95); MPV 9.8 fL (8.0-11.0); Monocytes % 12.2 %; Platelet Count 203 10^3/uL (130-400); RBC 3.92 10^6/uL (3.93-5.22); RDW 12.9 % (11.7-14.6); RDW-SD 42.6 fL; WBC 8.02 10^3/uL (4.4-10.8)
[2024-05-23] MEDS: Omnipaque 350 MG/ML 100 ML BTL 75 ML IJ (09:52)
[2024-05-23] MEDS: Normal Saline - Diluent 50 ML VIAL IJ (09:53)
[2024-05-23 10:04] LABS: ALT 31 U/L (14-59); AST 19 U/L (15-37); Albumin 3.3 g/dL (3.4-5.0); Alkaline Phosphatase 85 U/L (46-116); Anion Gap 4.3 mmol/L (3-11); BUN 18 mg/dL (7-18); Bilirubin, Total 0.6 mg/dL (0.2-1.0); CO2 31.7 mmol/L (21.0-32.0); CREATININE 1.1 mg/dL (0.55-1.02); Calcium 8.9 mg/dL (8.5-10.1); Chloride 98 mmol/L (98-107); Estimated GFR 48.63 (mL/min/1.73m2); Glucose 116 mg/dL (74-106); Lipase 239 U/L (<78); Potassium 4.2 mmol/L (3.5-5.1); Sodium 134 mmol/L (136-145); Total Protein 6.3 g/dL (6.4-8.2); Troponin I 7 ng/L (<or=51)
[2024-05-23 10:19] LABS: Bilirubin Negative (Negative); Blood Negative (Negative); Clarity Clear (Clear); Glucose Negative (Negative); Ketones Negative (Negative); Leukocyte Esterase Negative (Negative); Nitrite Negative (Negative); Specific Gravity 1.015 (1.005-1.025); Urobilinogen 0.2 mg/dL (Up to 0.2)
--- NOTE | 2024-05-23 10:28 | DI.VRAD_ITS ---
PROCEDURE INFORMATION: Exam: CT Abdomen And Pelvis With Contrast Exam date and time: 05/23/2024 9:53 AM Age: 89 years old Clinical indication: Other: Epigastric/llq pain TECHNIQUE: Imaging protocol: Computed tomography of the abdomen and pelvis with contrast. Contrast material: OMNIPAQUE 350; Contrast volume: 75 ml; Contrast route: INTRAVENOUS (IV); COMPARISON: CT ABDOMEN PELVIS W 03/29/2024 10:36 AM FINDINGS: Liver: Normal. No mass. Gallbladder and biliary ducts: Previous cholecystectomy. Stable mild compensatory dilatation of the bile ducts. Pancreas: Normal. No ductal dilation. Spleen: Stable cystic lesion superior spleen. Adrenal glands: Normal. No mass. Kidneys and ureters: Normal. No hydronephrosis. Stomach and bowel: Unremarkable. No obstruction. No mucosal thickening. Appendix: No evidence of appendicitis. Intraperitoneal space: Unremarkable. No free air. No significant fluid collection. Vasculature: Stable dense atherosclerotic calcification of the abdominal aorta. No aneurysmal dilatation. Lymph nodes: Unremarkable. No enlarged lymph nodes. Urinary bladder: Unremarkable as visualized. Reproductive: Unremarkable as visualized. Bones/joints: Surgical fusion symphysis pubis. Soft tissues: Unremarkable. IMPRESSION: No acute findings. Dictated and Authenticated by: Nadege Burroughs MD. Orderin [facility] Marshall Thompson MD
[2024-05-23 11:03] LABS: Troponin I 5 ng/L (<or=51)
== END 2024-05-23 12:21 | disposition home or self-care (01) ==
PROVIDERS: Emergency Provider Emergency Medicine; PCP Nurse Practitioner Family
DX: K85.90 Acute pancreatitis without necrosis or infection, unspecified (principal); N76.0 Acute vaginitis; B96.89 Other specified bacterial agents as the cause of diseases classified elsewhere
CPT/HCPCS: 36415; 80053; 83690; 99285; 74177; 81003; 83735; 84484; 85025; 87480; 87510; 87660; 99284; J3490

== ENCOUNTER 2024-05-23 19:36 | Inpatient (IN) | payer MEDICARE, SELFPAY ==
[2024-05-23] VITALS (14 sets, daily range): BP systolic 146–155; BP diastolic 62–66; PULSE 58–71; RESP 14–23; TEMP 36.5; O2SAT 93–99
--- NOTE | 2024-05-23 19:45 | RT.EKG_ITS ---
APPROVED REPORT Exam: Resting ECG Reason for Exam: possible syncope Patient Location: E HR:61 bpm ECG Measurements Heart Rate 61 AXIS KS 179 P 33 QRSd 81 QRS 67 QT 410 T 27 QTc 414 Conclusion Sinus rhythm 61 normal axis no stemi
--- NOTE | 2024-05-23 19:45 | DI.RAD_ITS ---
Exam(s) XR CHEST 2V PA LATERAL EXAM: XR CHEST 2V PA LATERAL CLINICAL HISTORY: fall TECHNIQUE: 2D digital imaging was performed of the chest. Two images were obtained. PA and lateral views were obtained. COMPARISON: CR ABD FLAT UPRIGHT PA CHEST from 02/14/2015 CR CHEST 2 VIEWS PA,LAT from 03/13/2017 CR,XR XR CHEST 1V IN DI DEPT from 03/09/2023 CR,XR XR CHEST 2V PA LATERAL from 05/14/2024 FINDINGS: MEDIASTINUM: Normal. HEART: The heart is at the upper limits of normal in size. PULMONARY VASCULATURE: Pulmonary vasculature appears stable. LUNGS: No focal consolidating infiltrates are seen. Chronic interstitial changes are again seen in t he lungs. PLEURAL SPACE: No pleural effusion or pneumothorax. BONE:Within normal limits for the patient's age. There is stable mild compression of T12. OTHER FINDINGS:There is elevation of the right hemidiaphragm. IMPRESSION: No acute pulmonary findings. DATA REPOSITORY: RADIATION DOSE DELIVERED:
--- NOTE | 2024-05-23 19:49 | ED.GENADUL_ITS ---
Discharge Plan Disposition Patient Disposition: Admit to [facility] Condition: Stable Discharge Details Clinical Impression: Acute pancreatitis, Constipation Primary Care Provider: Jason Huff ED Provider: Tom Lyman Home Meds and New Rx's Prescriptions: No Action PreserVision AREDS 4,296 mcg-226 mg-90 mg capsule 1 cap PO BID ferrous sulfate 325 mg (65 mg iron) tablet,delayed release (DR/EC) 325 mg PO .QOD Qty: 45 4RF Thermotabs 287-180-15 mg tablet 1 tab PO TID polyethylene glycol 3350 [Miralax] 17 gram/dose powder 17 g PO DAILY (DME) Aerochamber MV Spacer See Rx Instructions .Route Qty: 1 0RF Rx Instructions: As directed metoprolol tartrate 25 mg tablet 25 mg PO BID Qty: 180 3RF triamcinolone acetonide 0.1 % cream 1 applic topical BID Qty: 30 0RF Rx Instructions: apply to urticaria prn cranberry fruit 400 mg tablet 850 mg PO DAILY Patient Comments: 04/15/24- per pt report Rx Instructions: administer with a meal estradiol 0.01 % (0.1 mg/gram) cream 1 g vaginal DAILY Qty: 42.5 2RF Patient Comments: takes mon, wed and fri Rx Instructions: local application daily for one week and then 3 times per week famotidine 20 mg tablet 20 mg PO QHS Qty: 90 3RF simvastatin 5 mg tablet 5 mg PO DAILY Qty: 90 3RF ondansetron HCl 4 mg tablet 4 mg PO Q8H PRN (Reason: nausea and vomiting) Qty: 14 0RF Rx Instructions: Take 15-20 min prior to antibiotics albuterol sulfate 90 mcg/actuation HFA aerosol inhaler 1 - 2 inh IH Q6H PRN (Reason: shortness of breath or wheezing) Qty: 8.5 6RF Blink Tears 0.25 % drops 1 drp ophthalmic (eye) DAILY aspirin 81 mg Tablet,Delayed Release (Dr/Ec) 81 mg PO DAILY Qty: 0 0RF metronidazole 500 mg tablet 500 mg PO BID 6 Days Qty: 12 0RF ondansetron 4 mg tablet,disintegrating 4 mg PO Q8H PRNQty: 7 0RF HPI General Date/Time Provider Initiated Documentation: 05/23/24 19:40 . HPI Narrative: 89 year-old female presents to ED today by EMS with a chief complaint of fall at home, states she had supper and had severe abdominal pain, which caused her to fall to the ground, she is not sure if she passed out or not, states her son said she hit her head with onset just prior to arrival. Quality described as centralized abdominal pain, no radiation to fever, nausea or vomiting, endorses constipation, denies cough or shortness of breath, denies chest pain or palpitations prior to fall. Severity is described as moderate. Palliating factors include nothing specific attempted. Provoking factors include eating supper. Events leading up to the incident/Associated Symptoms: Patient was seen here earlier today and diagnosed with acute pancreatitis as well as bacterial vaginosis, had a CT earlier today that questioned mesenteric swirl sign. Patient not anticoagulated. Related Data Home Medications ?Medication ?Instructions ?Recorded ?Confirmed polyethylene glycol 400 0.25 % eye 1 drp ophthalmic (eye) DAILY 03/10/23 05/23/24 drops (Blink Tears) macular degeneration inhalational spacing device #1 ea 05/21/23 05/23/24 (Aerochamber MV spacer) ferrous sulfate 325 mg (65 mg 325 mg PO .QOD #45 tabs 05/30/23 05/23/24 iron) tablet,delayed release polyethylene glycol 3350 17 17 g PO DAILY 06/05/23 05/23/24 gram/dose oral powder (Miralax) sodium chloride-potassium chloride 1 tab PO TID 06/05/23 05/23/24 287 mg-180 mg-15 mg tablet (Thermotabs) vitamins A,C,Q-ykzx-cqlvnq 4,296 1 cap PO BID 09/29/23 05/23/24 mcg-226 mg-90 mg capsule (PreserVision AREDS) estradiol 0.01% (0.1 mg/gram) 1 g vaginal DAILY #42.5 grams 12/02/23 05/23/24 vaginal cream famotidine 20 mg tablet 20 mg PO QHS #90 tabs 01/13/24 05/23/24 aspirin 81 mg tablet,delayed 81 mg PO DAILY #0 tabs 01/16/24 05/23/24 release cranberry fruit 400 mg tablet 850 mg PO DAILY 04/15/24 05/23/24 simvastatin 5 mg tablet 5 mg PO DAILY #90 tabs 04/27/24 05/23/24 metoprolol tartrate 25 mg tablet 25 mg PO BID #180 tab-caps 04/30/24 05/23/24 triamcinolone acetonide 0.1 % 1 applic topical BID #30 grams 04/30/24 05/23/24 topical cream ondansetron HCl 4 mg tablet 4 mg PO Q8H PRN nausea and 05/10/24 05/23/24 vomiting #14 tabs albuterol sulfate 90 mcg/actuation 1 - 2 inh inhalation Q6H PRN 05/17/24 05/23/24 aerosol inhaler shortness of breath or wheezing #8.5 grams metronidazole 500 mg tablet 500 mg PO BID 6 days #12 tabs 05/23/24 05/23/24 ondansetron 4 mg disintegrating 4 mg PO Q8H PRN #7 tabs 05/23/24 05/23/24 tablet Previous Rx's ?Medication ?Instructions ?Recorded inhalational spacing device #1 ea 05/21/23 (Aerochamber MV spacer) ferrous sulfate 325 mg (65 mg 325 mg PO .QOD #45 tabs 05/30/23 iron) tablet,delayed release estradiol 0.01% (0.1 mg/gram) 1 g vaginal DAILY #42.5 grams 12/02/23 vaginal cream famotidine 20 mg tablet 20 mg PO QHS #90 tabs 01/13/24 aspirin 81 mg tablet,delayed 81 mg PO DAILY #0 tabs 01/16/24 release simvastatin 5 mg tablet 5 mg PO DAILY #90 tabs 04/27/24 metoprolol tartrate 25 mg tablet 25 mg PO BID #180 tab-caps 04/30/24 triamcinolone acetonide 0.1 % 1 applic topical BID #30 grams 04/30/24 topical cream ondansetron HCl 4 mg tablet 4 mg PO Q8H PRN nausea and 05/10/24 vomiting #14 tabs albuterol sulfate 90 mcg/actuation 1 - 2 inh inhalation Q6H PRN 05/17/24 aerosol inhaler shortness of breath or wheezing #8.5 grams metronidazole 500 mg tablet 500 mg PO BID 6 days #12 tabs 05/23/24 ondansetron 4 mg disintegrating 4 mg PO Q8H PRN #7 tabs 05/23/24 tablet Allergies Allergy/AdvReac Type Severity Reaction Status Date / Time ciprofloxacin (From Cipro) Allergy Intermediate Lips and Verified 05/23/24 20:09 face burn, feels shaky, arm tingly codeine AdvReac Intermediate Dizziness/L Verified 05/23/24 20:09 ightheade lovastatin AdvReac Intermediate myalgias Verified 05/23/24 20:09 oxycodone AdvReac Intermediate NAUSEA, GI Verified 05/23/24 20:09 UPSET azithromycin AdvReac cramping, Verified 05/23/24 20:09 anorexia doxycycline AdvReac Nausea, Verified 05/23/24 20:09 Vomiting hydrocodone AdvReac unknown Verified 05/23/24 20:09 General Stated Complaint: Fall/Non TraumaCriteria MELINDA: 3 Review of Systems All systems reviewed & are unremarkable except as noted in HPI and below Exam Narrative Exam Narrative: GENERAL APPEARANCE: Frail and cachectic, non-toxic, awake and alert, atraumatic, no acute distress. SKIN: Warm, pink, dry, intact, without rashes/lesions/ulcerations. HEAD: Normocephalic, atraumatic, normal hair distribution for gender/age. EYES: Normal conjunctiva, no exudates on lids/lashes. ENT: Nares patent, no circumoral cyanosis, no facial swelling NECK: Supple, trachea midline, painless cervical ROM. LUNGS/CHEST: Lungs CTA bilaterally-no rhonchi/rales/wheezes diffusely, non- labored respirations, normal A/P diameter, symmetrical expansion, no chest wall deformity HEART (CV/PV): Regular rate and rhythm without murmur, no peripheral edema, no JVD. ABDOMEN: Soft, non-distended, no guarding, diffuse central abdominal tenderness somewhat unchanged by palpation, no pulsatile masses, no bruits heard, hyperactive bowel sounds. MSK: Normal ROM, no swelling/deformity to bilateral UEs or LEs, moving all extremities without weakness, no cyanosis, spine midline without tenderness, normal curvature. NEURO: Mental Status AAOx4 - alert to person, place, time, events No facial droop, no forehead involvement. Motor: No focal weakness - strength 5/5 in bilateral UEs and LEs, proximal and distal, symmetric. Sensory: sensation intact to light touch globally. Gait NT PSYCH: euthymic, cooperative, pleasant, appropriate speech Course Vital Signs Vital signs: Vital Signs Temperature 36.5 C 05/23/24 19:35 Pulse 67 05/23/24 19:35 Respiratory Rate 16 05/23/24 19:35 Blood Pressure 155/62 H 05/23/24 19:35 Pulse Oximetry 98 05/23/24 19:35 Temperature 36.5 C 05/23/24 19:35 Pulse 67 05/23/24 19:35 Respiratory Rate 16 05/23/24 19:35 Blood Pressure 155/62 H 05/23/24 19:35 Pulse Oximetry 98 05/23/24 19:35 Pain Level 2 05/23/24 19:35 Medical Decision Making This dictation utilizes [id number] dictation software and may contain unedited grammatical errors. 89 year-old female presents to ED today by EMS with a chief complaint of fall at home, states she had supper and had severe abdominal pain, which caused her to fall to the ground, she is not sure if she passed out or not, states her son said she hit her head with onset just prior to arrival. Quality described as centralized abdominal pain, no radiation to fever, nausea or vomiting, endorses constipation, denies cough or shortness of breath, denies chest pain or palpitations prior to fall. Severity is described as moderate. Palliating factors include nothing specific attempted. Provoking factors include eating supper. Events leading up to the incident/Associated Symptoms: Patient was seen here earlier today and diagnosed with acute pancreatitis as well as bacterial vaginosis, had a CT earlier today that questioned mesenteric swirl sign. Patients' medical history: GERD, erosive esophagitis, pancreatitis, diverticulitis, hypertension, COPD, SIADH, constipation, DNR/DNI status. Family and social history: [ ]. Pertinent exam findings / vital signs include diffuse central abdominal tenderness, hyperactive bowel sounds diffusely, benign cardiopulmonary exam, nontoxic and afebrile, neuro baseline. Differential / pathologies of concern include pancreatitis, cholelithiasis or choledocholithiasis, biliary cholangitis, mesenteric ischemia, volvulus, AAA. Diagnostic studies of: -CBC, CMP, lipase, lactate, serial troponins, BNP, magnesium, TSH, XR chest, CTA ABD/pelvis with contrast, EKG. -CBC relatively unchanged from earlier today with a slight increase in absolute neutrophils from 5.7-7.39 -Lactate negative, unlikely significant mesenteric ischemia -CMP shows no relative change from earlier this morning -Serial troponins negative, BNP 517, do not suspect heart failure, 3hr trop pending for unwitnessed fall immediately SEED COLLECTOR -Lipase is increased from 239-722 indicating acute pancreatitis that is worsening -Liver enzymes within normal limits -TSH within normal limits -Magnesium within normal limits -XR chest shows no acute findings -CT of the chest shows no mesenteric swirl sing, moderate stool burden, no cholecystitis -EKG shows sinus rhythm at 61 bpm with P waves followed by narrow complex QRS with normal axis, no T wave abnormalities, no ST changes of ischemia, good R wave progression, normal QTc Interventions of: -500 mg IV Tylenol, 15 mg IV ketorolac, 4 mg IV Zofran, 2 mg IVP morphine as needed. -150mL / hr IVF NS ordered, MiraLax ordered just prior to admission. ED Course/Assessment/Plan: 89-year-old female presents with severe abdominal pain after eating supper at home. Which caused her to fall to the floor, she was seen earlier today at 0900-diagnosed with bacterial vaginosis after recently finishing antibiotics for pneumonia, also had a mild pancreatitis at that time and a lipase of 239 is increased to 722. She likely has source of abdominal pain from eating a large dinner which exacerbated her pancreatic irritation. There is no evidence of mesenteric ischemia or SBO, the patient has moderate stool burden and takes M etamucil, likely needs some stimulant laxatives and hydration overnight/bowel rest, I presented to Dr. Palmer for admission at 2300 hrs which was accepted, patient will board in the ED. Disposition of Acute Pancreatitis, Constipation. Patient verbalized understanding of the plan and return to ED criteria and engaged in shared decision making. Medical Records Medical records reviewed: Yes I reviewed the patient's medical records. Imaging Data Radiologic Study: Attestation: I personally reviewed and interpreted this imaging study as follows: Imaging: CT Scan Radiologist's impression: Exam: CTA Abdomen and Pelvis With Contrast Exam date and time: 05/23/2024 8:37 PM Age: 89 years old Clinical indication: Abdominal pain; Severe abd pain; ? Swirl sign CT earlier today TECHNIQUE: Imaging protocol: Computed tomographic angiography of the abdomen and pelvis with contrast. Exam focused on the arteries. 3D rendering (Not supervised by radiologist): MIP and/or 3D reconstructed images were created by the technologist. COMPARISON: CT ABDOMEN PELVIS W 05/23/2024 9:53 AM FINDINGS: Lungs: Lingular and right middle lobe atelectasis again noted. Heart: No change mild cardiomegaly. Aorta: No aortic aneurysm. No aortic dissection. Celiac trunk and mesenteric arteries: No occlusion or significant stenosis. Renal arteries: No occlusion or significant stenosis. Right iliac arteries: No occlusion or significant stenosis. Left iliac arteries: No occlusion or significant stenosis. Liver: No mass. Gallbladder and biliary ducts: Status post cholecystectomy. Pancreas: Unremarkable. No mass. No ductal dilation. Spleen: Unremarkable. No splenomegaly. Adrenal glands: Unremarkable. No mass. Kidneys and ureters: Renal collecting system and bladder contained contrast material from earlier injection. Stomach and bowel: Moderate fecal retention pattern. No abnormal bowel distension. No mesenteric or vascular abnormality appreciated diverticulosis without acute diverticulitis. Mild constipated change noted. Appendix: No evidence of appendicitis. Intraperitoneal space: Unremarkable. No free air. No significant fluid collection. Lymph nodes: Unremarkable. No enlarged lymph nodes. Urinary bladder: See Kidneys and ureters finding. Reproductive: Unremarkable as visualized. Bones/joints: Surgical change pubic symphysis again noted. Moderate lumbar spondylosis. Bone mineralization appears decreased. Soft tissues: Unremarkable. IMPRESSION: No acute abnormality seen to account for symptoms. Dictated and Authenticated by: Smitha Baron MD. Radiologic Study #2: Attestation: I personally reviewed and interpreted this imaging study as follows: Imaging: X-Ray Radiologist's impression: Exam: XR Chest Exam date and time: 05/23/2024 8:53 PM Age: 89 years old Clinical indication: Injury or trauma; Fall; Blunt trauma (contusions or hematomas); Injury date: 05/23/24 TECHNIQUE: Imaging protocol: Radiologic exam of the chest. Views: 2 views. COMPARISON: CR XR CHEST 2V PA LATERAL 05/14/2024 5:12 AM FINDINGS: Lungs: There is some mild scattered increased interstitial markings, possible mild fibrosis. Appearance is overall unchanged compared to previous exam. Pleural spaces: Unremarkable. No pleural effusion. No pneumothorax. Heart/Mediastinum: Unremarkable. No cardiomegaly. Bones/joints: Unremarkable. IMPRESSION: Nonacute changes, stable. No definite acute abnormality evident in the chest. Dictated and Authenticated by: Smitha Baron MD. Lab Data Lab results reviewed: Yes I reviewed the patient's lab results. Labs: Laboratory Tests Range/Units 05/23/24 05/23/24 05/23/24 19:40 20:01 21:10 WBC (4.4-10.8) 10^3/uL 9.75 RBC (3.93-5.22) 10^6/uL 3.95 Hgb (11.2-15.7) g/dL 11.9 Hct (36.0-46.0) % 36.2 MCV (80-95) fL 92 MCH (27.0-33.0) pg 30.1 MCHC (32.0-36.0) % 32.9 RDW (11.7-14.6) % 13.0 Plt Count (130-400) 10^3/uL 232 MPV (8.0-11.0) fL 10.1 Immature Gran % % 1.1 Neutrophils % % 75.8 Lymphocytes % % 11.8 Monocytes % % 10.4 Eosinophils % % 0.7 Basophils % % 0.2 Nucleated RBC % (0.0-0.3) % 0.0 Absolute Neutrophils (1.2-6.7) 10^3/uL 7.39 H Absolute Lymphocytes (1.2-3.4) 10^3/uL 1.15 L Absolute Monocytes (0.1-0.8) 10^3/uL 1.01 H Absolute Eosinophils (0.0-0.7) 10^3/uL 0.07 Absolute Basophils (0.0-0.2) 10^3/uL 0.02 VBG Lactate (<or=2.0) mmol/L 1.1 Sodium (136-145) mmol/L 135 L Potassium (3.5-5.1) mmol/L 4.0 Chloride (98-107) mmol/L 97 L Carbon Dioxide (21.0-32.0) mmol/L 31.6 Anion Gap (3-11) mmol/L 6.4 BUN (7-18) mg/dL 19 H Creatinine (0.55-1.02) mg/dL 1.0 Est GFR (CKD-EPI 2020) (mL/min/1.73m2) 54.53 Glucose (74-106) mg/dL 142 H Calcium (8.5-10.1) mg/dL 8.7 Magnesium (1.8-2.4) mg/dL 2.0 Total Bilirubin (0.2-1.0) mg/dL 0.6 AST (15-37) U/L 19 ALT (14-59) U/L 31 Alkaline Phosphatase (46-116) U/L 89 Troponin I (<or=51) ng/L 6 7 NT-Pro-B Natriuret Pep (<300) pg/mL 517 H Total Protein (6.4-8.2) g/dL 6.4 Albumin (3.4-5.0) g/dL 3.2 L Lipase (<78) U/L 722 H TSH (0.36-3.74) uIU/mL 3.24 Quality:SDOH Health Related Social Needs: No Data to Display PFSH All Active Problems (Updated 05/23/24 @ 22:37 by FADIA Verma) Constipation (Acute) Acute pancreatitis (Acute) Pancreatitis (Chronic) Bacterial vaginosis (Acute) HTN (hypertension) (Chronic) COPD exacerbation (Acute) Pneumonia involving right lung (Acute) Influenza A (Acute) New daily persistent headache (Acute) wakes up with, gone by noon, pain radiates to right side of neck Abnormal weight loss (Acute) Recurrent pneumonia (Chronic) Frailty syndrome in geriatric patient (Chronic) Palliative care patient (Chronic) Palliative care is happy to urgently consult on this patient in ED and help with decisions needed at the time if staffing available. 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 Elevated urine sodium with episode of hyponatremia evaluated at [facility] 2019 GERD with esophagitis Erosive gastritis Perforated diverticulum Shingles Pancreatitis Macular degeneration Hx of fracture of pelvis pt. 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 intestinal meta. or dysplasia Essential hypertension (01/14/13) Depressive disorder Atrophic vaginitis (08/19/11) Pt. states she is unsure Family history of GI malignancy Surgical History H/O sigmoidoscopy (~07/18/22) KNEE SURGERY (~05/2012) Abdominal hysterectomy EGD - MAC (04/22/17) Colonoscopy - MAC (04/22/17) Colonoscopy - MAC (~02/2012) Cholecystectomy Bladder Surgery Bilateral salpingectomy with oophorectomy Arthroplasty of knee (05/27/12) LEFT - Pt denies knee replacement Family History Mother , AGE 84 Heart disease Father , AGE 87 Stroke Heart disease Cancer Sister Stroke Brother Alcohol abuse Cancer Brother Cancer of kidney Son Hyperlipidemia Pulmonary disease Daughter Thyroid disease Daughter Cancer s/p hysterectomy Daughter No problems noted. Daughter No problems noted. Brother No problems noted. Maternal Grandfather No problems noted. Paternal Grandfather No problems noted. Maternal Grandmother No problems noted. Paternal Grandfather No problems noted. Social History Smoking/Tobacco Use Status: Former Tobacco Use tobacco type: cigarettes Quit Date: 03/17/97 Second Hand Exposure: Yes Smoking risk assessment performed?: Yes Alcohol Intake: never Drug use: Never Substance use type: does not use Adopted: No Caregiver/Support person: Yes (both boxes checked) Housing: house Number of Children: 5 Communication Needs: Hard of Hearing and Corrective Lenses Education Level: high school Do you need help understanding health information?: Always current occupation: none Pets and animals: No Sexually active: No Do you think of yourself as: straight/heterosexual Current gender identity: female What is your relationship status?: How often do you talk on the phone with friends or family?: decline to answer How often do you get together with friends or relatives?: decline to answer How often do you attend faith or anabaptism services?: decline to answer Do you belong to any clubs or organized social groups?: no Panel score (0-1 are the most socially isolated patients): 0 What type of physical activity do you participate in: walking Carri/Judaism: No preference Special carri needs: No Seatbelt use: always Helmet use: No Drive intox 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 tanker driver: No Firearms in home: No In current or past relationships, have you been: made to feel afraid Do you feel safe at home: Yes
[2024-05-23 20:09] LABS: Lactate 1.1 mmol/L (<or=2.0)
[2024-05-23 20:10] LABS: Abs Immature Grans 0.11 10^3/uL (0.0-0.06); Absolute Basophil Count 0.02 10^3/uL (0.0-0.2); Absolute Eosinophil Count 0.07 10^3/uL (0.0-0.7); Absolute Lymphocyte Count 1.15 10^3/uL (1.2-3.4); Absolute Monocyte Count 1.01 10^3/uL (0.1-0.8); Absolute Neutrophil Count 7.39 10^3/uL (1.2-6.7); Basophils % 0.2 %; Eosinophils % 0.7 %; HCT 36.2 % (36.0-46.0); HGB 11.9 g/dL (11.2-15.7); Immature Grans % 1.1 %; Lymphocytes % 11.8 %; MCH 30.1 pg (27.0-33.0); MCHC 32.9 % (32.0-36.0); MCV 92 fL (80-95); MPV 10.1 fL (8.0-11.0); Monocytes % 10.4 %; Neutrophils % 75.8 %; Platelet Count 232 10^3/uL (130-400); RBC 3.95 10^6/uL (3.93-5.22); RDW-SD 43.8 fL; WBC 9.75 10^3/uL (4.4-10.8)
--- NOTE | 2024-05-23 20:15 | DI.CT_ITS ---
Exam(s) CT ABDOMEN PELVIS CTA EXAM: CT ABDOMEN PELVIS CTA CLINICAL HISTORY: severe abd pain; ?swirl sign CT earlier today. TECHNIQUE: Imaging Protocol: Axial CT angiography was performed with multi-slice acquisition and m ulti-planar and/or 3D reconstructions. CONTRAST MATERIAL: Intravenous: Omnipaque 350 Contrast volume:60mL Oral: No COMPARISON: CT CT ABDOMEN PELVIS W from 11/26/[address] ABDOMEN PELVIS W from 05/23/2024 FINDINGS: ABDOMEN AND PELVIS: Abdomen: Celiac axis/mesenteric arteries: No evidence of occlusion or significant stenosis. Atherosclerotic ca lcification is present. Renal Arteries: No evidence of occlusion or significant stenosis. Atherosclerotic calcification is pr esent. Aorta: No evidence of occlusion or significant stenosis. No aneurysm or dissection. There is atheros clerotic calcification present. Pelvis: Iliac Arteries: No evidence of occlusion or significant stenosis. There is atherosclerotic calcifica tion present. Common Femoral Arteries: No evidence of occlusion or significant stenosis. There is atherosclerotic calcification present. ABDOMEN: Lung bases: Coronary artery calcification is present. Calcified granuloma are seen in the lung bases . There is chronic scarring seen in the right middle lobe and the left lingula with focal bronchiect asis seen in the left lingula. Liver: Normal density. There is mild intrahepatic biliary ductal dilatation present. This is unchang ed compared to the prior examination. No suspicious hepatic masses are spur present. Calcified gran uloma are seen in the liver. Portal, Superior Mesenteric, and Splenic Veins: Unremarkable. Gallbladder and Biliary Tract: Status post cholecystectomy. Stable extrahepatic bile duct dilatation . This likely reflects post cholecystectomy state. Pancreas: Normal density, no abnormal calcifications or inflammatory process. Spleen: There is a stable hypodensity in the superior aspect of the spleen. This may represent a hem angioma or cyst. Adrenals: No masses seen. Kidneys: Normal size, contour and axis. No radiodense stones or obstructive uropathy. Stable small cy st in the superior pole of the left kidney. No follow-up is recommended. Bowel: There is colonic diverticulosis without evidence of acute diverticulitis. There is no evidenc e of bowel obstruction or bowel wall thickening. There is a normal appendix. Peritoneal Cavity: No ascites, collection or mesenteric inflammatory response. No free air. Lymph Nodes: Within normal limits. Bones: There is artifact in the pelvis from the pubic bone orthopedic plates. There are old healed p ubic bone fractures. Soft Tissues: Unremarkable. PELVIS: Bladder: Symmetric distention, no gross wall thickening. Reproductive Organs: The uterus is not visualized. Lymph Nodes: Within normal limits. Bones: Within normal limits. IMPRESSION: 1. No evidence of an acute abdominal or pelvic process. 2. No evidence of bowel obstruction. 3. Stable abdominal pelvic findings as described above. RADIATION DOSE DELIVERED: 522.12mGy.cm Total DLP DATA REPOSITORY: All CT scans at this facility are submitted to the National Radiology Data Registry (NRDR) Dose Index Registry (DIR) with the [employer] (ACR). RADIATION OPTIMIZATION: All CT scans at this facility use at least one of these dose optimization te chniques: automated exposure control; mA and/or kV adjustment per patient size (includes targeted exa ms where dose is matched to clinical indication); or iterative reconstruction.
[2024-05-23] MEDS: Omnipaque 350 MG/ML 100 ML BTL IJ (20:27)
[2024-05-23] MEDS: Normal Saline - Diluent 50 ML VIAL IJ (20:28)
[2024-05-23 20:31] LABS: ALT 31 U/L (14-59); AST 19 U/L (15-37); Albumin 3.2 g/dL (3.4-5.0); Alkaline Phosphatase 89 U/L (46-116); Anion Gap 6.4 mmol/L (3-11); BUN 19 mg/dL (7-18); Bilirubin, Total 0.6 mg/dL (0.2-1.0); CO2 31.6 mmol/L (21.0-32.0); Calcium 8.7 mg/dL (8.5-10.1); Chloride 97 mmol/L (98-107); Estimated GFR 54.53 (mL/min/1.73m2); Glucose 142 mg/dL (74-106); Sodium 135 mmol/L (136-145); Total Protein 6.4 g/dL (6.4-8.2)
[2024-05-23 20:38] LABS: Lipase 722 U/L (<78); NT-proBNP 517 pg/mL (<300); TSH (W/Ref FT4) 3.24 uIU/mL (0.36-3.74); Troponin I 6 ng/L (<or=51)
[2024-05-23 21:38] LABS: Troponin I 7 ng/L (<or=51)
--- NOTE | 2024-05-23 21:51 | DI.VRAD_ITS ---
PROCEDURE INFORMATION: Exam: CTA Abdomen and Pelvis With Contrast Exam date and time: 05/23/2024 8:37 PM Age: 89 years old Clinical indication: Abdominal pain; Severe abd pain; ? Swirl sign CT earlier today TECHNIQUE: Imaging protocol: Computed tomographic angiography of the abdomen and pelvis with contrast. Exam focused on the arteries. 3D rendering (Not supervised by radiologist): MIP and/or 3D reconstructed images were created by the technologist. COMPARISON: CT ABDOMEN PELVIS W 05/23/2024 9:53 AM FINDINGS: Lungs: Lingular and right middle lobe atelectasis again noted. Heart: No change mild cardiomegaly. Aorta: No aortic aneurysm. No aortic dissection. Celiac trunk and mesenteric arteries: No occlusion or significant stenosis. Renal arteries: No occlusion or significant stenosis. Right iliac arteries: No occlusion or significant stenosis. Left iliac arteries: No occlusion or significant stenosis. Liver: No mass. Gallbladder and biliary ducts: Status post cholecystectomy. Pancreas: Unremarkable. No mass. No ductal dilation. Spleen: Unremarkable. No splenomegaly. Adrenal glands: Unremarkable. No mass. Kidneys and ureters: Renal collecting system and bladder contained contrast material from earlier injection. Stomach and bowel: Moderate fecal retention pattern. No abnormal bowel distension. No mesenteric or vascular abnormality appreciated diverticulosis without acute diverticulitis. Mild constipated change noted. Appendix: No evidence of appendicitis. Intraperitoneal space: Unremarkable. No free air. No significant fluid collection. Lymph nodes: Unremarkable. No enlarged lymph nodes. Urinary bladder: See Kidneys and ureters finding. Reproductive: Unremarkable as visualized. Bones/joints: Surgical change pubic symphysis again noted. Moderate lumbar spondylosis. Bone mineralization appears decreased. Soft tissues: Unremarkable. IMPRESSION: No acute abnormality seen to account for symptoms. Dictated and Authenticated by: Smitha Baron MD. Orderin Nura Santos MD
--- NOTE | 2024-05-23 21:54 | DI.VRAD_ITS ---
PROCEDURE INFORMATION: Exam: XR Chest Exam date and time: 05/23/2024 8:53 PM Age: 89 years old Clinical indication: Injury or trauma; Fall; Blunt trauma (contusions or hematomas); Injury date: 05/23/24 TECHNIQUE: Imaging protocol: Radiologic exam of the chest. Views: 2 views. COMPARISON: CR XR CHEST 2V PA LATERAL 05/14/2024 5:12 AM FINDINGS: Lungs: There is some mild scattered increased interstitial markings, possible mild fibrosis. Appearance is overall unchanged compared to previous exam. Pleural spaces: Unremarkable. No pleural effusion. No pneumothorax. Heart/Mediastinum: Unremarkable. No cardiomegaly. Bones/joints: Unremarkable. IMPRESSION: Nonacute changes, stable. No definite acute abnormality evident in the chest. Dictated and Authenticated by: Smitha Baron MD. Orderin Nura Santos MD
[2024-05-23] MEDS: Ondansetron 4 MG/2 ML VIAL IVP (22:03)
[2024-05-23] MEDS: Ketorolac 15 MG/ML VIAL IVP (22:04)
[2024-05-23] MEDS: ACETAMINOPHEN 500 MG/50 ML BAG 200 MG IVPB (22:05)
[2024-05-23 23:36] LABS: Troponin I 8 ng/L (<or=51)
[2024-05-23] MEDS: Normal Saline 1,000 ML 150 ML IV (23:49)
[2024-05-24] VITALS (43 sets, daily range): BP systolic 163–177; BP diastolic 61–78; PULSE 60–92; RESP 10–31; TEMP 36.5–37.1; O2SAT 88–97
--- NOTE | 2024-05-24 00:07 | W.PM.HP.N ---
Date of service: 05/24/24 Time of Service: 00:07 Assessment and Plan Assessment and plan (1) Acute pancreatitis: Status: Acute Assessment and plan: Elevated lipase, at ten times normal would be considered of pancreatic origin; so, pancreatitis, etiology unknown. Will place on bowel rest with prn analgesics and antiemetics, and will check triglycerides. With regard to the diagnosis of bacterial vaginosis: unable at present to locate labs, but will temporarily hold Flagyl as this is on list of known causative agents for pancreatitis (obviously this was prescribed after the initial diagnosis so would not be the original causative agent). As to her other meds there are no obvious likely potential culprits. Regarding constipation: would not favor any additional laxatives at present. ADs: requests DNR, c/w prior history History of Present Illness History of Present Illness Chief Complaint: abdominal pain Narrative: 89 year old female was seen earlier today for complaints of abdominal pain and vaginal burning. Work up of note for lipase 239, CT showed no pancreatic changes, surgically absent gall bladder, with question of mesenteric swirl sign and vaginal pathogen screen positive bacterial vaginosis. Patient was discharged to home, instructed to go on clear liquid diet and was started on Flagyl. This evening she had a full dinner, consisting of fish and green beans, and sometime thereafter noted increasing abdominal pain which caused her to fall to the floor. Here in ER lipase now 722, repeat CT showed no acute abnormalities and swirl sign from prior scan not present; mild constipation noted. Patient given MS 2mg, Zofran and dose of Miralax. I was asked to evaluate for admission. Patient states she feels fine at present. She thinks she may have possibly started one or several meds within the past number of weeks but is not sure and does not know any names. She states she has never had lipid profile. Denies alcohol use. Review of Systems Narrative: per HPI PFSH All Active Problems Constipation (Acute) Acute pancreatitis (Acute) Pancreatitis (Chronic) Bacterial vaginosis (Acute) HTN (hypertension) (Chronic) COPD exacerbation (Acute) Pneumonia involving right lung (Acute) Influenza A (Acute) New daily persistent headache (Acute) wakes up with, gone by noon, pain radiates to right side of neck Abnormal weight loss (Acute) Recurrent pneumonia (Chronic) Frailty syndrome in geriatric patient (Chronic) Palliative care patient (Chronic) Palliative care is happy to urgently consult on this patient in ED and help with decisions needed at the time if staffing available. 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 Elevated urine sodium with episode of hyponatremia evaluated at [facility] 2019 GERD with esophagitis Erosive gastritis Pancreatitis Macular degeneration Hx of fracture of pelvis pt. 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 intestinal meta. or dysplasia Essential hypertension (01/14/13) Depressive disorder Atrophic vaginitis (08/19/11) Pt. states she is unsure Family history of GI malignancy Surgical History H/O sigmoidoscopy (~07/18/22) KNEE SURGERY (~05/2012) Abdominal hysterectomy EGD - MAC (04/22/17) Colonoscopy - MAC (04/22/17) Colonoscopy - MAC (~02/2012) Cholecystectomy Bladder Surgery Bilateral salpingectomy with oophorectomy Arthroplasty of knee (05/27/12) LEFT - Pt denies knee replacement Family History Mother , AGE 84 Heart disease Father , AGE 87 Stroke Heart disease Cancer Sister Stroke Brother Alcohol abuse Cancer Brother Cancer of kidney Son Hyperlipidemia Pulmonary disease Daughter Thyroid disease Daughter Cancer s/p hysterectomy Daughter No problems noted. Daughter No problems noted. Brother No problems noted. Maternal Grandfather No problems noted. Paternal Grandfather No problems noted. Maternal Grandmother No problems noted. Paternal Grandfather No problems noted. Social History Smoking/Tobacco Use Status: Former Tobacco Use tobacco type: cigarettes Quit Date: 03/17/97 Second Hand Exposure: Yes Smoking risk assessment performed?: Yes Alcohol Intake: never Drug use: Never Substance use type: does not use Adopted: No Caregiver/Support person: Yes (both boxes checked) Housing: house Number of Children: 5 Communication Needs: Hard of Hearing and Corrective Lenses Education Level: high school Do you need help understanding health information?: Always current occupation: none Pets and animals: No Sexually active: No Do you think of yourself as: straight/heterosexual Current gender identity: female What is your relationship status?: How often do you talk on the phone with friends or family?: decline to answer How often do you get together with friends or relatives?: decline to answer How often do you attend restorationist or orthodox services?: decline to answer Do you belong to any clubs or organized social groups?: no Panel score (0-1 are the most socially isolated patients): 0 What type of physical activity do you participate in: walking Carri/Catholic: No preference Special carri needs: No Seatbelt use: always Helmet use: No Drive intox 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 lyft driver: No Firearms in home: No In current or past relationships, have you been: made to feel afraid Do you feel safe at home: Yes Meds Allergies and Home Medications Allergies Allergy/AdvReac Type Severity Reaction Status Date / Time ciprofloxacin (From Cipro) Allergy Intermediate Lips and Verified 05/23/24 20:09 face burn, feels shaky, arm tingly codeine AdvReac Intermediate Dizziness/L Verified 05/23/24 20:09 ightheade lovastatin AdvReac Intermediate myalgias Verified 05/23/24 20:09 oxycodone AdvReac Intermediate NAUSEA, GI Verified 05/23/24 20:09 UPSET azithromycin AdvReac cramping, Verified 05/23/24 20:09 anorexia doxycycline AdvReac Nausea, Verified 05/23/24 20:09 Vomiting hydrocodone AdvReac unknown Verified 05/23/24 20:09 Home Medications ?Medication ?Instructions ?Recorded ?Confirmed ?Type polyethylene glycol 400 0.25 % eye 1 drp ophthalmic (eye) DAILY 03/10/23 05/23/24 History drops (Blink Tears) macular degeneration inhalational spacing device #1 ea 05/21/23 05/23/24 Rx (Aerochamber MV spacer) ferrous sulfate 325 mg (65 mg 325 mg PO .QOD #45 tabs 05/30/23 05/23/24 Rx iron) tablet,delayed release polyethylene glycol 3350 17 17 g PO DAILY 06/05/23 05/23/24 History gram/dose oral powder (Miralax) sodium chloride-potassium chloride 1 tab PO TID 06/05/23 05/23/24 History 287 mg-180 mg-15 mg tablet (Thermotabs) vitamins A,C,P-bwuk-azmihy 4,296 1 cap PO BID 09/29/23 05/23/24 History mcg-226 mg-90 mg capsule (PreserVision AREDS) estradiol 0.01% (0.1 mg/gram) 1 g vaginal DAILY #42.5 grams 12/02/23 05/23/24 Rx vaginal cream famotidine 20 mg tablet 20 mg PO QHS #90 tabs 01/13/24 05/23/24 Rx aspirin 81 mg tablet,delayed 81 mg PO DAILY #0 tabs 01/16/24 05/23/24 Rx release cranberry fruit 400 mg tablet 850 mg PO DAILY 04/15/24 05/23/24 History simvastatin 5 mg tablet 5 mg PO DAILY #90 tabs 04/27/24 05/23/24 Rx metoprolol tartrate 25 mg tablet 25 mg PO BID #180 tab-caps 04/30/24 05/23/24 Rx triamcinolone acetonide 0.1 % 1 applic topical BID #30 grams 04/30/24 05/23/24 Rx topical cream ondansetron HCl 4 mg tablet 4 mg PO Q8H PRN nausea and 05/10/24 05/23/24 Rx vomiting #14 tabs albuterol sulfate 90 mcg/actuation 1 - 2 inh inhalation Q6H PRN 05/17/24 05/23/24 Rx aerosol inhaler shortness of breath or wheezing #8.5 grams metronidazole 500 mg tablet 500 mg PO BID 6 days #12 tabs 05/23/24 05/23/24 Rx ondansetron 4 mg disintegrating 4 mg PO Q8H PRN #7 tabs 05/23/24 05/23/24 Rx tablet Exam Narrative Exam Narrative: 146/66, 69, 36.5, 16, 99% RA. HEENT atraumatic; neck supple; lungs clear; heart RRR; abdomen soft and NT; pelvic (external) no redness or discharge; extremities w/o edema; neuro Ox3, moves all 4s Results Labs 05/23/24 20:01 05/23/24 19:40 Labs: Laboratory Results - last 24 hr 05/23/24 05/23/24 05/23/24 19:40 20:01 21:10 WBC 9.75 RBC 3.95 Hgb 11.9 Hct 36.2 MCV 92 MCH 30.1 MCHC 32.9 RDW 13.0 Plt Count 232 MPV 10.1 Immature Gran % 1.1 Neutrophils % 75.8 Lymphocytes % 11.8 Monocytes % 10.4 Eosinophils % 0.7 Basophils % 0.2 Nucleated RBC % 0.0 Absolute Neutrophils 7.39 H Absolute Lymphocytes 1.15 L Absolute Monocytes 1.01 H Absolute Eosinophils 0.07 Absolute Basophils 0.02 VBG Lactate 1.1 Sodium 135 L Potassium 4.0 Chloride 97 L Carbon Dioxide 31.6 Anion Gap 6.4 BUN 19 H Creatinine 1.0 Est GFR (CKD-EPI 2020) 54.53 Glucose 142 H Calcium 8.7 Magnesium 2.0 Total Bilirubin 0.6 AST 19 ALT 31 Alkaline Phosphatase 89 Troponin I 6 7 NT-Pro-B Natriuret Pep 517 H Total Protein 6.4 Albumin 3.2 L Lipase 722 H TSH 3.24 05/23/24 23:12 WBC RBC Hgb Hct MCV MCH MCHC RDW Plt Count MPV Immature Gran % Neutrophils % Lymphocytes % Monocytes % Eosinophils % Basophils % Nucleated RBC % Absolute Neutrophils Absolute Lymphocytes Absolute Monocytes Absolute Eosinophils Absolute Basophils VBG Lactate Sodium Potassium Chloride Carbon Dioxide Anion Gap BUN Creatinine Est GFR (CKD-EPI 2020) Glucose Calcium Magnesium Total Bilirubin AST ALT Alkaline Phosphatase Troponin I 8 NT-Pro-B Natriuret Pep Total Protein Albumin Lipase TSH 16, 99% RA. HEENT atraumatic; neck supple; lungs clear; heart RRR; abdomen soft and NT; pelvic (external only) no redness or discharge; extremities w/o edema; neuro Ox3, moves all 4sLast Vital Signs Temp 36.5 C 05/23/24 19:35 Pulse 69 05/23/24 19:45 Resp 16 05/23/24 19:45 BP 146/66 H 05/23/24 19:45 Pulse Ox 99 05/23/24 19:45 Time Spent Time spent with Patient: 40-54 minutes Time was spent: preparing to see the patient(eg.review tests), obtaining and/or reviewing separately otained hiistory, ordering medications,tests, procedures, referring, communicating with other health healthcare applications analyst and indepentently interpreting results
[2024-05-24] MEDS: Lactated Ringers 1,000 ML 125 ML IV (02:36)
[2024-05-24 07:55] LABS: Anion Gap 6.1 mmol/L (3-11); BUN 13 mg/dL (7-18); CO2 28.9 mmol/L (21.0-32.0); CREATININE 0.8 mg/dL (0.55-1.02); Calcium 8.6 mg/dL (8.5-10.1); Chloride 101 mmol/L (98-107); Estimated GFR 71.27 (mL/min/1.73m2); Glucose 98 mg/dL (74-106); Lipase 193 U/L (<78); Potassium 4.4 mmol/L (3.5-5.1); Sodium 136 mmol/L (136-145)
[2024-05-24 08:06] LABS: Calculated LDL 76 mg/dL (<100); Cholesterol 155 mg/dL (<200); HDL Cholesterol 72 mg/dL (>or=50); Triglyceride 39 mg/dL (<150)
[2024-05-24] MEDS: Metoprolol 25 MG TAB PO ×2 (08:21→20:42)
[2024-05-24] MEDS: Salt Supplement (BUFFERED) TAB 1 TAB PO ×3 (08:21→20:42)
[2024-05-24] MEDS: Refresh PLUS Eye Drops 0.4ml OP (08:21)
[2024-05-24] MEDS: Aspirin E.C. 81 MG TABEC PO (08:21)
--- NOTE | 2024-05-24 10:47 | W.PC.ACHO ---
Registration Status: Primary Language: Preferred Language: ED Information & Data Chief Complaint Fall/Non TraumaCriteria 05/23/24 19:49 Other Complaint Abd Prob 05/23/24 19:35 Triage Note pt still having abd pain, it 05/23/24 19:35 got really sharp all of the sudden and the fell down from the pain. did not strike head. 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) Hyperlipidemia History of tobacco use Gastroesophageal reflux disease with esophagitis Essential hypertension (01/14/13) Depressive disorder Atrophic vaginitis (08/19/11) Family history of GI malignancy (Last Reviewed 05/24/24 @ 00:18 by Andres Palmer MD) H/O sigmoidoscopy (~07/18/22) KNEE SURGERY (~05/2012) Abdominal hysterectomy EGD - MAC (04/22/17) Colonoscopy - MAC (04/22/17) Colonoscopy - MAC (~02/2012) Cholecystectomy Bladder Surgery Bilateral salpingectomy with oophorectomy Arthroplasty of knee (05/27/12) Most Recent Vital Signs Temperature 36.5 C 05/23/24 19:35 Pulse 71 05/24/24 08:42 Pulse 73 05/24/24 06:20 Respiratory Rate 18 05/24/24 08:42 Blood Pressure 165/64 H 05/24/24 08:42 Blood Pressure Mean 93 05/23/24 19:45 Pulse Oximetry 91 L 05/24/24 06:20 Oxygen Delivery Method Room Air 05/24/24 08:42 Oxygen Flow Rate 0 05/24/24 08:42 Pain Level 0 05/24/24 08:42 Allergies ciprofloxacin (From Cipro) Allergy (Intermediate, Verified 05/23/24 20:09) Lips and face burn, feels shaky, arm tingly codeine Adverse Reaction (Intermediate, Verified 05/23/24 20:09) Dizziness/Lightheade lovastatin Adverse Reaction (Intermediate, Verified 05/23/24 20:09) myalgias oxycodone Adverse Reaction (Intermediate, Verified 05/23/24 20:09) NAUSEA, GI UPSET azithromycin Adverse Reaction (Verified 05/23/24 20:09) cramping, anorexia Lips burn, flushed feeling, felt heart racing doxycycline Adverse Reaction (Verified 05/23/24 20:09) Nausea, Vomiting hydrocodone Adverse Reaction (Verified 05/23/24 20:09) unknown pt. states she does not remember her reaction to this medication. Active Medications Generic Name Dose Route Start Last Admin Trade Name Freq PRN Reason Stop Dose Admin Aspirin 81 mg 05/24/24 08:30 05/24/24 08:21 Aspirin E.C. 81 Mg Tabec PO 81 mg DAILY KATH Administration Carboxymethylcellulose Sodium 0 each 05/24/24 08:30 05/24/24 08:21 Refresh Plus Eye Drops 0.4ml OP 1 drp DAILY KATH Administration Famotidine 20 mg 05/24/24 02:00 05/24/24 05:35 Famotidine 20 Mg Tab PO Not Given HS KATH Sodium Chloride 1,000 mls @ 150 mls/hr 05/23/24 23:15 05/24/24 02:30 Saline 1000ml Bag IV 0 mls/hr INFUSION KATH Infusion Ringer's Solution 1,000 mls @ 125 mls/hr 05/24/24 02:00 05/24/24 02:36 IV 125 mls/hr INFUSION KATH Administration Iohexol 100 ml 05/23/24 20:30 05/23/24 20:27 Omnipaque 350 Mg/Ml 100 Ml Btl IJ 06/22/24 23:59 60 ml DIRECTED KATH Administration Metoprolol Tartrate 25 mg 05/24/24 08:30 05/24/24 08:21 Metoprolol 25 Mg Tab PO 25 mg BID KATH Administration Potassium Chloride/Sodium Chloride 1 tab 05/24/24 08:30 05/24/24 08:21 Salt Supplement (Buffered) Tab PO 1 tab TID KATH Administration Sodium Chloride 50 ml 05/23/24 20:30 05/23/24 20:28 Normal Saline - Diluent 50 Ml Vial IJ 50 ml .FOR DI USE KATH Administration Vit C/Vit E/Zinc/Copper/Lutein 1 tab 05/24/24 08:30 05/24/24 08:21 Preservision Tablet PO 1 tab BID KATH Administration IV IV Catheter Type [Right Diffusics Antecubital] IV Catheter Gauge [Right 20 Antecubital] Diet Orders Category Date Time Status Nothing Per Oral [DIET] Nutrition 05/24/24 Breakfast Active Diagnostics 05/24/24 05/23/24 05/23/24 Range/Units 07:40 23:12 21:10 WBC (4.4-10.8) 10^3/uL RBC (3.93-5.22) 10^6/uL Hgb (11.2-15.7) g/dL Hct (36.0-46.0) % MCV (80-95) fL MCH (27.0-33.0) pg MCHC (32.0-36.0) % RDW (11.7-14.6) % Plt Count (130-400) 10^3/uL MPV (8.0-11.0) fL Immature Gran % % Neutrophils % % Lymphocytes % % Monocytes % % Eosinophils % % Basophils % % Nucleated RBC % (0.0-0.3) % Absolute Neutrophils (1.2-6.7) 10^3/uL Absolute Lymphocytes (1.2-3.4) 10^3/uL Absolute Monocytes (0.1-0.8) 10^3/uL Absolute Eosinophils (0.0-0.7) 10^3/uL Absolute Basophils (0.0-0.2) 10^3/uL VBG Lactate (<or=2.0) mmol/L Sodium 136 (136-145) mmol/L Potassium 4.4 (3.5-5.1) mmol/L Chloride 101 (98-107) mmol/L Carbon Dioxide 28.9 (21.0-32.0) mmol/L Anion Gap 6.1 (3-11) mmol/L BUN 13 (7-18) mg/dL Creatinine 0.8 (0.55-1.02) mg/dL Est GFR (CKD-EPI 2020) 71.27 (mL/min/1.73m2) Glucose 98 (74-106) mg/dL Calcium 8.6 (8.5-10.1) mg/dL Magnesium (1.8-2.4) mg/dL Total Bilirubin (0.2-1.0) mg/dL AST (15-37) U/L ALT (14-59) U/L Alkaline Phosphatase (46-116) U/L Troponin I 8 7 (<or=51) ng/L NT-Pro-B Natriuret Pep (<300) pg/mL Total Protein (6.4-8.2) g/dL Albumin (3.4-5.0) g/dL Triglycerides 39 (<150) mg/dL Total Cholesterol 155 (<200) mg/dL LDL Cholesterol, Calc 76 (<100) mg/dL HDL Cholesterol 72 H (>or=50) mg/dL Lipase 193 H (<78) U/L TSH (0.36-3.74) uIU/mL 05/23/24 05/23/24 Range/Units 20:01 19:40 WBC 9.75 (4.4-10.8) 10^3/uL RBC 3.95 (3.93-5.22) 10^6/uL Hgb 11.9 (11.2-15.7) g/dL Hct 36.2 (36.0-46.0) % MCV 92 (80-95) fL MCH 30.1 (27.0-33.0) pg MCHC 32.9 (32.0-36.0) % RDW 13.0 (11.7-14.6) % Plt Count 232 (130-400) 10^3/uL MPV 10.1 (8.0-11.0) fL Immature Gran % 1.1 % Neutrophils % 75.8 % Lymphocytes % 11.8 % Monocytes % 10.4 % Eosinophils % 0.7 % Basophils % 0.2 % Nucleated RBC % 0.0 (0.0-0.3) % Absolute Neutrophils 7.39 H (1.2-6.7) 10^3/uL Absolute Lymphocytes 1.15 L (1.2-3.4) 10^3/uL Absolute Monocytes 1.01 H (0.1-0.8) 10^3/uL Absolute Eosinophils 0.07 (0.0-0.7) 10^3/uL Absolute Basophils 0.02 (0.0-0.2) 10^3/uL VBG Lactate 1.1 (<or=2.0) mmol/L Sodium 135 L (136-145) mmol/L Potassium 4.0 (3.5-5.1) mmol/L Chloride 97 L (98-107) mmol/L Carbon Dioxide 31.6 (21.0-32.0) mmol/L Anion Gap 6.4 (3-11) mmol/L BUN 19 H (7-18) mg/dL Creatinine 1.0 (0.55-1.02) mg/dL Est GFR (CKD-EPI 2020) 54.53 (mL/min/1.73m2) Glucose 142 H (74-106) mg/dL Calcium 8.7 (8.5-10.1) mg/dL Magnesium 2.0 (1.8-2.4) mg/dL Total Bilirubin 0.6 (0.2-1.0) mg/dL AST 19 (15-37) U/L ALT 31 (14-59) U/L Alkaline Phosphatase 89 (46-116) U/L Troponin I 6 (<or=51) ng/L NT-Pro-B Natriuret Pep 517 H (<300) pg/mL Total Protein 6.4 (6.4-8.2) g/dL Albumin 3.2 L (3.4-5.0) g/dL Triglycerides (<150) mg/dL Total Cholesterol (<200) mg/dL LDL Cholesterol, Calc (<100) mg/dL HDL Cholesterol (>or=50) mg/dL Lipase 722 H (<78) U/L TSH 3.24 (0.36-3.74) uIU/mL Intake and Output - 24 Hour Total 05/23/24 19:27 thru 05/24/24 08:00 Intake Total 452.5 Balance 452.5 Weight 58.5 kg Intake: IV 452.5 Other: Stool Size Moderate Stool Characteristics Formed Falls Risk Assessment History of Falls Admit Due to Fall 05/23/24 19:47 Contributing Factors Impairments 05/23/24 19:47 Ambulatory Aids Uses ambulatory device + 05/23/24 19:47 Tubes/Lines W/no contributing factors 05/23/24 19:47 Gait Evaluation W/any additional score 05/23/24 19:47 Cognition No cognitive impairment 05/23/24 19:47 Fall Total Score 88 05/23/24 19:47 Level of Risk Maximum Risk 05/23/24 19:47 Problems (Last Reviewed 05/24/24 @ 00:18 by Andres Palmer MD) Acute pancreatitis (Acute) v v v v v v v v v Sending and/or Receiving Nurses: Please use comment section below to note any information pertinent to the patient hand-off not included above. Information / Comments: Alison [facility] ED Charge Report received from:
[2024-05-24] MEDS: Normal Saline 1,000 ML 150 ML IV ×2 (11:45→18:19)
--- NOTE | 2024-05-24 13:28 | NUR.NOTE ---
patient came from ED today Axox4, reports only mild pain to LUQ, denies n/v, understands prn pain management. Ambulated around nursing unit very well with SBA using FWW. On IVF for hydration while NPO, understands NPO status. Admission assessment completed, physical exam otherwise unremarkable. Oriented to room/staff/unit, vitals mostly stable, hypertensive in 170s but asymptomatic, MD Phillip made aware. Nursing Note:
--- NOTE | 2024-05-24 15:59 | INITIAL_ITS ---
Date of service: 05/24/24 Time of Service: 15:59 Care Management Initial Assmt Initial Assessment Reason for Hospitalization: acute pancreatitis Functional Status/Living Situation Patient Presentation: Cathy was sitting up in her chair when CM met with her. She stated that she is feeling better now, than when she arrived. She reported that she lives with her son, Grant, and that she has five children, four of which live locally. She expressed frustration with her memory, stating that she thinks that she has dementia, but she hasn't seen a doctor about it. She stated that her son goes to PCP appointments with her, which she appreciates. She discussed how she was a single mother, so her children are very independent, as is she. CM will continue to follow. Town of Residence: [place] Resides with: Child (sonGrant) Significant Other/Family: Local Caregiver/Guardian: Grant barbour ([facility]) Natural Supports: Grant Barbour daughters, Christina and Nancy live locally two other daughters, out of state Employment Status: Retired Instrumental Activities of Daily Living (ADLs): Independent Activities/Hobbies/SocialSupport: reading Medications Medication Management: No Issues/Barriers identified Advance Directives Advance Directives: Do you have an Advance Directive: Y 07/03/22 14:53 AD On File at [facility]: Y 05/24/24 00:57 Date Asked 06/06/23 05/24/24 08:20 AD Date Reviewed 05/24/24 05/24/24 00:57 COLST On File at [facility] Yes 07/03/22 14:53 COLST Date Scanned 03/20/23 03/20/23 13:47 Code Status Resuscitation Status DNR/DNI Insurance Coverage/Financial Issues Insurance: [facility] [employer] [facility] financial assist 100% Care Team Visit Care Team Role Provider Type Dinesh Phillip MD MD [facility] STAFF PHYSICIAN Jason Busby NP Primary Care Provider NURSE PRACTITIONER Andres Palmer MD Admit Provider [facility] STAFF PHYSICIAN Attending Provider Emergency Provider Discharge Potential Discharge Needs: PCP F/U Appt Anticipated Barriers to Discharge: None Identified Patient/Family Education Needs: Review discharge instructions, discuss Ask Me Three Transportation: Private vehicle Plan: Anticipate Cathy will return home once medically cleared. Her son will drive her home via private vehicle. She will follow up with her PCP and discharge plan of care. CM will continue to follow. Social Determinants of Health Screening Social Determinants of Health last assessed: 05/24/24 Will the Patient Participate in the Screening?: Yes Do you worry about having a steady place to live?: no Problems where you live: no known problems In the past 12 months, have you had to go without electric, gas, oil or water in your home?: no Have you or anyone in your house had to go without enough food to eat?: no Has lack of transportation kept you from medical appointments or from doing things needed for daily living?: no Has anyone in your life made you feel unsafe or unsupported?: no How hard is it for you to pay for the very basics like food, housing, medical care, and heating? Would you say it is:: Not hard at all Do you want help finding or keeping work or a job?: I do not need or want help If for any reason you need help with day-to-day activities such as bathing, preparing meals, shopping, managing finances, etc., do you get the help you need?: I don?t need any help How often do you feel lonely or isolated from those around you?: Sometimes Do you speak a language other than [place] at home?: No Does the patient want assistance with any of the above?: No Health Related Social Needs Health related social needs: feeling lonely/isolated (Z60.8) [facility] All Active Problems (Updated 05/24/24 @ 07:53 by CHERYLE DEAL) Constipation (Acute) Acute pancreatitis (Acute) Pancreatitis (Chronic) Bacterial vaginosis (Acute) HTN (hypertension) (Chronic) COPD exacerbation (Acute) Pneumonia involving right lung (Acute) Influenza A (Acute) New daily persistent headache (Acute) wakes up with, gone by noon, pain radiates to right side of neck Abnormal weight loss (Acute) Recurrent pneumonia (Chronic) Frailty syndrome in geriatric patient (Chronic) Palliative care patient (Chronic) Palliative care is happy to urgently consult on this patient in ED and help with decisions needed at the time if staffing available. 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 Elevated urine sodium with episode of hyponatremia evaluated at [facility] 2019 GERD with esophagitis Erosive gastritis Pancreatitis Macular degeneration Hx of fracture of pelvis pt. 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 intestinal meta. or dysplasia Essential hypertension (01/14/13) Depressive disorder Atrophic vaginitis (08/19/11) Pt. states she is unsure Family history of GI malignancy Surgical History H/O sigmoidoscopy (~07/18/22) KNEE SURGERY (~05/2012) Abdominal hysterectomy EGD - MAC (04/22/17) Colonoscopy - MAC (04/22/17) Colonoscopy - MAC (~02/2012) Cholecystectomy Bladder Surgery Bilateral salpingectomy with oophorectomy Arthroplasty of knee (05/27/12) LEFT - Pt denies knee replacement Family History Mother , AGE 84 Heart disease Father , AGE 87 Stroke Heart disease Cancer Sister Stroke Brother Alcohol abuse Cancer Brother Cancer of kidney Son Hyperlipidemia Pulmonary disease Daughter Thyroid disease Daughter Cancer s/p hysterectomy Daughter No problems noted. Daughter No problems noted. Brother No problems noted. Maternal Grandfather No problems noted. Paternal Grandfather No problems noted. Maternal Grandmother No problems noted. Paternal Grandfather No problems noted. Social History Smoking/Tobacco Use Status: Former Tobacco Use tobacco type: cigarettes Quit Date: 03/17/97 Second Hand Exposure: Yes Smoking risk assessment performed?: Yes Alcohol Intake: never Drug use: Never Substance use type: does not use Adopted: No Caregiver/Support person: Yes (both boxes checked) Housing: house Number of Children: 5 Communication Needs: Hard of Hearing and Corrective Lenses Education Level: high school Do you need help understanding health information?: Always current occupation: none Pets and animals: No Sexually active: No Do you think of yourself as: straight/heterosexual Current gender identity: female What is your relationship status?: How often do you talk on the phone with friends or family?: decline to answer How often do you get together with friends or relatives?: decline to answer How often do you attend mandaeism or jew services?: decline to answer Do you belong to any clubs or organized social groups?: no Panel score (0-1 are the most socially isolated patients): 0 What type of physical activity do you participate in: walking Carri/Latter-Day: No preference Special carri needs: No Seatbelt use: always Helmet use: No Drive intox 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 commercial relief driver: No Firearms in home: No In current or past relationships, have you been: made to feel afraid Do you feel safe at home: Yes
[2024-05-24] MEDS: Albuterol HFA 8 GM 60 PUFF INH IH (17:08)
--- NOTE | 2024-05-24 17:30 | NUR.NOTE ---
patient doing well, sitting in chair, ambulated to bathroom, voiding to toilet, reports minimal pain and no n/v. Denies hunger. NPO for pancreatitis. Requested prn INH as she takes this TID at home, ordered prn here, discussed with her the prn status and requesting it when needed. Nursing Note:
[2024-05-24] MEDS: MORPHine 2 MG/ML SYR IVP (18:59)
[2024-05-24] MEDS: Ondansetron 4 MG/2 ML VIAL IVP (18:59)
[2024-05-24] MEDS: Famotidine 20 MG TAB PO (20:42)
[2024-05-24] MEDS: Simvastatin 10 MG TAB 5 MG PO (20:42)
[2024-05-25] MEDS: Normal Saline 1,000 ML 150 ML IV ×2 (01:13→08:22)
[2024-05-25 07:22] VITALS: BP 171/83; PULSE 65; RESP 14; TEMP 36; O2SAT 95
[2024-05-25] MEDS: Refresh PLUS Eye Drops 0.4ml OP (08:11)
[2024-05-25] MEDS: Salt Supplement (BUFFERED) TAB 1 TAB PO ×3 (08:12→21:12)
[2024-05-25] MEDS: Aspirin E.C. 81 MG TABEC PO (08:12)
[2024-05-25] MEDS: Metoprolol 25 MG TAB PO ×2 (08:12→21:12)
--- NOTE | 2024-05-25 09:26 | NUR.NOTE ---
Patient EKG was performed after time change. It is 1 hour off. Nursing Note:
--- NOTE | 2024-05-25 09:33 | PDOC.CMPRO ---
Date of service: 05/25/24 Time of Service: 09:33 Care Management Progress Note Progress Note Text Progress Note Text: Cathy was sitting up in her chair when CM visited with her. Her son, Grant was in the room visiting. Cathy stated that per MD, she may be discharging home today, and she expressed concern about this plan, as she required PRN pain medication overnight, and was just transitioned to full liquids. She was given some information regarding self management to prevent pancreatitis at home, which she was reviewing; her RN stated that she plans to review this with Cathy prior to discharge. CM relayed Cathy's concerns to MD, who decided to monitor her overnight again due to her ongoing pain, and to observe her increased diet to determine if she can tolerate solid foods. Cathy expressed some anxiety regarding staying inpatient, as she has a tax appointment tomorrow; her RN assisted her with contacting the agency where she was scheduled, and left a message to support Cathy in rescheduling this appointment. Cathy stated that she feels good about the plan to remain overnight, and is hopeful to be ready to return home tomorrow. She was evaluated by PT today, who recommended HH PT; CM will request nursing for continued education and MOTOR VEHICLE LIGHT ASSEMBLER for social support. CM will continue to follow. Discharge Potential Discharge Needs: PCP F/U Appt Anticipated Barriers to Discharge: None Identified Patient/Family Education Needs: Review discharge instructions, discuss Ask Me Three Transportation: Private vehicle Plan: Anticipate Cathy will return home once medically cleared with new orders for HH RN, PT, MOTOR VEHICLE LIGHT ASSEMBLER. Her son will drive her home via private vehicle. She will follow up with her PCP and discharge plan of care. CM will continue to follow. Social Determinants of Health Screening Social Determinants of Health last assessed: 05/25/24 Will the Patient Participate in the Screening?: Yes Do you worry about having a steady place to live?: no Problems where you live: no known problems In the past 12 months, have you had to go without electric, gas, oil or water in your home?: no Have you or anyone in your house had to go without enough food to eat?: no Has lack of transportation kept you from medical appointments or from doing things needed for daily living?: no Has anyone in your life made you feel unsafe or unsupported?: no How hard is it for you to pay for the very basics like food, housing, medical care, and heating? Would you say it is:: Not hard at all Do you want help finding or keeping work or a job?: I do not need or want help If for any reason you need help with day-to-day activities such as bathing, preparing meals, shopping, managing finances, etc., do you get the help you need?: I don?t need any help How often do you feel lonely or isolated from those around you?: Sometimes Do you speak a language other than Indonesian at home?: No Does the patient want assistance with any of the above?: No Health Related Social Needs Health related social needs: feeling lonely/isolated (Z60.8)
--- NOTE | 2024-05-25 09:52 | NUR.NOTE ---
patient AxOx4 this shift, VSS with exception of HTN, no current home med regimen for this, will notify provider in rounds, likely pt will need to f/u with PCP about this. PAtient ambulates with SBA in room, noted to have some side stepping/swaying occassionally. This RN asked pt if she had walker at home if she would use it to which pt replied she would. PT consult placed by MD Phillip per RN request. Spoke with Latosha PT about nursing concerns for falls and gait imbalance. Patient getting bed bath with assistant chief nursing officer right now, voiding well, BM 05/24, tolerated full liquid diet well this AM with no n/v, reports no abd pain or discomfort at this time. Nursing Note:
--- NOTE | 2024-05-25 12:50 | PGE_ITS ---
Date of Service Date of service: 05/25/24 Time of Service: 12:50 Assessment and Plan Assessment and plan (1) Acute pancreatitis: Status: Acute Assessment and plan: -Patient initially presented to the emergency department on 05/23/2024 and was diagnosed with pancreatitis but was able to tolerate p.o. intake -However, the patient went home and ate a large meal, presented back to the emergency department later that evening with worsening abdominal pain -Her lipase was decreased as compared to earlier in the day, she was unable to tolerate p.o. intake -She was initially n.p.o. which was transition to full liquid diet on the morning of 05/25/2024 -Patient did require as needed antiemetic and analgesic overnight 05/24/2024 -However, she tolerated full liquid diet on the morning of 05/25/2024, however she has ongoing lack of understanding of appropriate food intake at this time, as well as anxiety related to exacerbation of abdominal pain -Patient will stay an additional night to continue appropriate dietary education to allow pancreatitis to continue to resolve -Continue full liquid diet at this time, consider transition to pur?ed regular diet for dinner 05/25/2024 Subjective Subjective Interval history since last seen: Patient states that she is feeling better was able to tolerate some liquid diet for breakfast. However, she is anxious that she required antiemetic and pain medication overnight for abdominal pain. Attempted to explain safe dietary choices while her pancreatitis resolves, but due to what appears to be short- term memory loss patient continues to have difficulty with comprehension. Exam Narrative Exam Narrative: Well-appearing older female sitting up in the bed no acute distress, ANO x 4, heart regular rhythm, lungs clear to auscultation bilaterally, abdomen soft, nontender, nondistended Objective Last Vital Signs Temp 96.8 F L 05/25/24 07:22 Pulse 65 05/25/24 07:22 Resp 14 05/25/24 07:22 BP 171/83 H 05/25/24 07:22 Pulse Ox 95 05/25/24 07:22 Time Spent with Patient Time Spent with Patient: >50 minutes Time was spent: preparing to see the patient(eg.review tests), obtaining and/or reviewing separately otained hiistory, ordering medications,tests, procedures, referring, communicating with other health healthcare social worker, indepentently interpreting results, counseling the patient and care coordination
--- NOTE | 2024-05-25 15:08 | CHAPLAIN ---
Cathy was up in the chair when I visited. She was pleasant and easily engaged in conversation. She hopes to be going home today. A family member had just arrived to take her home. Cathy said she was given morphine and wasn't having any more pain. She wondered if she's be going home on morphine. I suggested she check with her nurse. I explained my role and offered support.
--- NOTE | 2024-05-25 15:16 | PT.INIE ---
PT Notes Visit Reasons: Pancreatitis Physical Therapy Inpatient Initial Evaluation Date: 05/25/2024 Referring Doctor: Dinesh Phillip MD PT Orders: PT CONSULT: Eval/Treat Precautions: Standard. Activity as tolerated. Patient Profile/Admitting Diagnosis: Cathy is an 89-year-old female admitted for management of acute pancreatitis. PMHx: All Active Problems Constipation (Acute) Acute pancreatitis (Acute) Pancreatitis (Chronic) Bacterial vaginosis (Acute) HTN (hypertension) (Chronic) COPD exacerbation (Acute) Pneumonia involving right lung (Acute) Influenza A (Acute) New daily persistent headache (Acute) wakes up with, gone by noon, pain radiates to right side of neck Abnormal weight loss (Acute) Recurrent pneumonia (Chronic) Frailty syndrome in geriatric patient (Chronic) Palliative care patient (Chronic) Palliative care is happy to urgently consult on this patient in ED and help with decisions needed at the time if staffing available. 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 Elevated urine sodium with episode of hyponatremia evaluated at [facility] 2019 GERD with esophagitis Erosive gastritis Pancreatitis Macular degeneration Hx of fracture of pelvis pt. 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 intestinal meta. or dysplasia Essential hypertension (01/14/13) Depressive disorder Atrophic vaginitis (08/19/11) Pt. states she is unsure Family history of GI malignancy Surgical History H/O sigmoidoscopy (~07/18/22) KNEE SURGERY (~05/2012) Abdominal hysterectomy EGD - MAC (04/22/17) Colonoscopy - MAC (04/22/17) Colonoscopy - MAC (~02/2012) Cholecystectomy Bladder Surgery Bilateral salpingectomy with oophorectomy Arthroplasty of knee (05/27/12) LEFT - Pt denies knee replacement Social History/Home Situation: Lives with son and his family in a private home with 3 steps to enter without rails. Independent with all mobility ADL performance without any assistive device indoors. No longer drives. No falls at home in the past year. Equipment Owned/DME: FWW, [email or web address] crutches Subjective: Denied headache and chest pain. Complained of mild lightheadedness at the outset but resolved later in the session. Mildly upset about food that are temporarily not safe to eat to allow her condition to resolve. Objective: General Observation: Seated on chair. IV access through R UE. Son present in room. Nurse student finishing up her education on which food patient can eat to ensure full recovery from pancreatitis. Mental Status: Alert and oriented as to person, place, time, and purpose. Able to pay attention, focus, and respond appropriately. Responses were accurate albeit slowed. Pain: None reported ROM: Right Upper Extremity: Shoulder Flexion WFL. Shoulder abduction WFL. Elbow flexion WFL. Wrist flexion WFL. Functional opening and closing of hand WFL. Left Upper Extremity: Shoulder Flexion WFL. Shoulder abduction WFL. Elbow flexion WFL. Wrist flexion WFL. Functional opening and closing of hand WFL. Right Lower Extremity: Hip flexion WFL. Hip abduction WFL. Knee flexion WFL. Ankle dorsiflexion WFL. Ankle plantarflexion WFL. Left Lower Extremity: Hip flexion WFL. Hip abduction WFL. Knee flexion WFL. Ankle dorsiflexion WFL. Ankle plantarflexion WFL. Strength: Right Upper Extremity: Shoulder flexors 4/5. Shoulder abductors 4/5. Elbow flexors 5/5. Elbow extensors 5/5. Date Night Caregiver strong. Left Upper Extremity: Shoulder flexors 4/5. Shoulder abductors 4/5. Elbow flexors 5/5. Elbow extensors 5/5. Date Night Caregiver strong. Right Lower Extremity: Hip flexors 4/5. Hip abductors 5/5. Knee flexors 5/5. Knee extensors 4/5. Ankle dorsiflexors 4/5. Ankle plantarflexors 4/5. Left Lower Extremity: Hip flexors 4/5. Hip abductors 5/5. Knee flexors 5/5. Knee extensors 4/5. Ankle dorsiflexors 4/5. Ankle plantarflexors 4/5. Bed Mobility/Transfers: Minimal cueing provided for use of B hands as needed for support, movement sequence, Ad management, and and posture to reduce fall risk and minimize pain report Sit to stand independent Stand to sit independent Bed to reclining chair independent Reclining chair to bed independent Gait: Instructed patient with level surface ambulation of 200 feet + 250 feet requiring stand by assist only for directions. Hlaey slowed. Stairs: Guided patient with safe and correct negotiation of 6 x 4-inch steps and 4 x 6-inch steps while holding onto B rails with stand by assist only with [id number] technique with minimal cues only for safety. Balance: Static Sitting: Normal Dynamic Sitting: Normal Static Standing: Good Dynamic Standing: Good 4-Stage Balance Test: Able to maintain feet together and semi-tandem for 10 seconds but is unable to do so with full tandem and one-legged stance legged stance. Special Tests: Mobility Limitations Standardized Measure [facility] AM-PAC 6 clicks Basic Mobility Inpatient Short Form: Raw Score: 24 CMS Score: 0% deficit 4-Stage Balance Test: Feet together 10 seconds Semi-tandem 10 seconds Full tandem 6 seconds One-legged stance 3 seconds Informed Consent/Education: Patient was instructed in purpose of PT consult. ASSESSMENT: Patient presents with clinical signs and symptoms consistent with current/admitting diagnoses that have resulted to mobility limitations, gait instability, generalized weakness, and overall ADL decline as demonstrated by the following impairment level findings: 1. Impaired standing balance Impairments are contributing to the following functional limitations: 2. Increased completion time for mobility ADL performance 3. Increased risk for falls Patient is assessed as a 38673 moderate complexity based on the following: History: 89-year-old female with past medical history as indicated above Examination: Demonstrable impairment in strength, balance, and mobility level with underlying impairments and functional limitations as exhibited above Presentation: Stable Decision Makin moderate complexity Goals: Goals X1 week 1. Stand-Sit independent 2. Bed-Chair independent 3. Chair-Bed independent 4. Independent gait on level surface with use FWW for at least 300 feet without report of pain nor dyspnea 5. Independent stair negotiation while holding onto SPC + rail for at least 10 steps without report of pain nor dyspnea 6. Independent with home exercise program 7. Good static and dynamic standing balance/tolerance Plan of Care/Treatment Plan: 1-2x/day, 7 days a week for 2 weeks. Patient will highly benefit from skilled physical therapy services including functional mobility training, bed mobility/transfer training, gait and balance training, therapeutic exercises, therapeutic activity, caregiver/staff/family education and training 1x/day, 7 days/week x 1 week. Plan of care has been reviewed with the AIRCRAFT INSTRUMENT ENGINEER providing the service under Physical Therapy direction. Initiate Physical Therapy intervention for strengthening, bed mobility, transfers, gait, stairs, balance training, use of assistive device. DISCHARGE RECOMMENDATIONS: [] Home with no services [] [X] Home with services. Patient will benefit from home health PT services in order to progress mobility level using least restrictive assistive ambulatory device, assess home safety, identify additional equipment needs, and establish a functional maintenance program that will increase ability of patient to remain at home. [] Home with outpatient PT [] SNF for continued rehabilitation [] [] Entry Level Financial Analyst Care [] [] SNF versus LTC based on ability to participate and progress [] TREATMENT CODE/TIME: 48898 x 20 minutes for 1 unit, 23920 x 18 minutes for 1 unit ((14:30-14:15:08). Thank you for the opportunity to participate in the care of this patient. Alyx Reyes PT, DPT, CLT [facility] [place], [place]
[2024-05-25] MEDS: Polyethylene Glycol 3350 17 GM PACKET PO (17:49)
--- NOTE | 2024-05-25 17:52 | NUR.NOTE ---
patient sitting up in chair all day, worked with PT, would like walker for home. Pt given prn miralax per request she takes this daily for diverticulosis. Education given to pt on pancreatitis and diverticulosis for dietary control. Had long conversation with her and son on this. Pt will stay tonight to ensure her pain and n/v is under control. Nursing Note:
[2024-05-25 19:30] VITALS: BP 168/63; PULSE 58; RESP 17; TEMP 36.6; O2SAT 94
[2024-05-25] MEDS: Famotidine 20 MG TAB PO (21:12)
[2024-05-25] MEDS: Simvastatin 10 MG TAB 5 MG PO (21:13)
[2024-05-25] MEDS: Normal Saline Flush 10 ML SYR (21:56)
[2024-05-26 08:04] VITALS: BP 154/70; PULSE 85; RESP 18; TEMP 36.4; O2SAT 93
[2024-05-26] MEDS: Metoprolol 25 MG TAB PO (08:26)
[2024-05-26] MEDS: Salt Supplement (BUFFERED) TAB 1 TAB PO (08:26)
[2024-05-26] MEDS: Refresh PLUS Eye Drops 0.4ml OP (08:26)
[2024-05-26] MEDS: Aspirin E.C. 81 MG TABEC PO (08:26)
[2024-05-26] MEDS: Normal Saline Flush 10 ML SYR IVP (08:27)
--- NOTE | 2024-05-26 09:49 | PT.INTREAT ---
PT Notes Visit Reasons: Pancreatitis Physical Therapy Inpatient Treatment Note Date: 05/26/2024 Precautions: Standard. Activity as tolerated. Subjective: Denied headache and chest pain. Complained of mild tummy pain that she had earlier today that the nurse knew about. Objective: General Observation: Seated on chair. IV access through R UE. Son present in room. Mental Status: Alert and oriented as to person, place, time, and purpose. Able to pay attention, focus, and respond appropriately. Responses were accurate albeit slowed. Pain: Minimal tummy pain early this morning Bed Mobility/Transfers: Minimal cueing provided for use of B hands as needed for support, movement sequence, Ad management, and and posture to reduce fall risk and minimize pain report Sit to stand independent Stand to sit independent Bed to reclining chair independent Reclining chair to bed independent Gait: Instructed patient with level surface ambulation of 500 feet + 250 feet requiring stand by assist only for directions. Stairs: Guided patient with safe and correct negotiation of 6 x 4-inch steps and 4 x 6-inch steps while holding onto B rails with stand by assist only with [id number] technique with minimal cues only for safety. THERA EX: Worked on B LE strengthening while facilitating good posture and balance control performing the following using 2.5 AW in B ankles with good response: Bilateral heel raises x 10 DBE with heel raises x 3 Stepping exercises using 6-inch step height and while holding onto B rails x 5, 1st set DBE with bilateral heel raises x 3 Stepping exercises using 6-inch step height and while holding onto B rails x 5, second set Standing hip abd x 10 ASSESSMENT: Patient demonstrated good tolerance to today's resistance exercises in sitting and standing. She was provided with a single point-cane ot better able manage the steps without rails at home. She will benefit from PT to regain independent PLOF with SPC. Plan of Care/Treatment Plan: 1-2x/day, 7 days a week for 2 weeks. Patient will highly benefit from skilled physical therapy services including functional mobility training, bed mobility/transfer training, gait and balance training, therapeutic exercises, therapeutic activity, caregiver/staff/family education and training 1x/day, 7 days/week x 1 week. Plan of care has been reviewed with the MEDIUM CYCLE SALESPERSON providing the service under Physical Therapy direction. Initiate Physical Therapy intervention for strengthening, bed mobility, transfers, gait, stairs, balance training, use of assistive device. DISCHARGE RECOMMENDATIONS: [] Home with no services [] [X] Home with services. Patient will benefit from home health PT services in order to progress mobility level using least restrictive assistive ambulatory device, assess home safety, identify additional equipment needs, and establish a functional maintenance program that will increase ability of patient to remain at home. [] Home with outpatient PT [] SNF for continued rehabilitation [] [] Iron Cutter Care [] [] SNF versus LTC based on ability to participate and progress [] TREATMENT CODE/TIME: 70626 x 20 minutes for 1 unit, 77903 x 28 for 2 units (09:49-10:37).
--- NOTE | 2024-05-26 11:03 | PDOC.HHF2F ---
Home Health Referral Home Health Orders Clinical synopsis of why skilled professionals are needed: Acute pancreatits Registered Nurse: Check all that apply Instruct on new or changed medication(s)/assess compliance: Ordered Assess for exacerbation of medical condition, instruct patient/caregivers on signs and symptoms to report for early detection: Ordered Physical Therapist: Check all that apply Increase strength & endurance for safe mobility at home: Ordered To design/establish home maintenance program: Ordered Fall reduction therapy program for patient with history of frequent falls: Ordered Home safety evaluation and teaching/gait training including stair management (if applicable): Ordered Occupational Therapist: Evaluate and treat for patient unable to perform ADL/IADL/self-care: Ordered Mds Coordinator: Assist with community resources: Ordered Assist with termite technician care planning: Ordered Encounter Date and Reason: I certify that a FTF encounter for this patient was performed on May 26, 2024 and that such encounter was related to the primary reason the patient requires home health services. The encounter was conducted in the following manner: By me as the certifying physician, EDUCATION COURSES SALES REPRESENTATIVE, PA or By an inpatient physician, EDUCATION COURSES SALES REPRESENTATIVE or PA during an inpatient stay who communicated findings to me, Certification And Authentication I certify that I composed the above information based on my clinical judgment relating to this patient's medical condition and, if applicable, clinical findings communicated to me by the NPP or inpatient physician who performed the FTF encounter. Name of Provider that will be monitoring home health services: Jason Busby
--- NOTE | 2024-05-26 11:05 | DSE_ITS ---
Date of service: 05/26/24 Time of Service: 11:05 DS: Diagnosis Discharge Diagnosis (1) Acute pancreatitis: Status: Acute Discharge Plan Disposition Patient Disposition: Home W/Home Health Services Condition: Good Discharge Details Reason For Visit: Pancreatitis Admit Date/Time: 05/24/24 00:28 Admit Provider: Andres Palmer Attending Provider: Andres Palmer Primary Care Provider: Jason Huff Hospital Course Hospital Course: The patient initially presented to the hospital with signs and symptoms of an acute pancreatitis. She had been seen in the ED earlier in the day and went home and had a large meal and had worsening abdominal pain. Since that time she is slowly had her diet advanced with low-fat diet initially full liquid and then regular diet and tolerated well. Her and her son who is her primary associate manager affiliate marketing were extensively educated on diet change recommendations over the next few days to which they expressed understanding. At which time it was determined that the patient was stable for discharge home. Home Meds and New Rx's Prescriptions: Continued PreserVision AREDS 4,296 mcg-226 mg-90 mg capsule 1 cap PO BID ferrous sulfate 325 mg (65 mg iron) tablet,delayed release (DR/EC) 325 mg PO .QOD Qty: 45 4RF Thermotabs 287-180-15 mg tablet 1 tab PO TID polyethylene glycol 3350 [Miralax] 17 gram/dose powder 17 g PO DAILY (DME) Aerochamber MV Spacer See Rx Instructions .Route Qty: 1 0RF Rx Instructions: As directed metoprolol tartrate 25 mg tablet 25 mg PO BID Qty: 180 3RF triamcinolone acetonide 0.1 % cream 1 applic topical BID Qty: 30 0RF Rx Instructions: apply to urticaria prn cranberry fruit 400 mg tablet 850 mg PO DAILY Patient Comments: 04/15/24- per pt report Rx Instructions: administer with a meal estradiol 0.01 % (0.1 mg/gram) cream 1 g vaginal DAILY Qty: 42.5 2RF Patient Comments: takes mon, wed and fri Rx Instructions: local application daily for one week and then 3 times per week famotidine 20 mg tablet 20 mg PO QHS Qty: 90 3RF simvastatin 5 mg tablet 5 mg PO DAILY Qty: 90 3RF ondansetron HCl 4 mg tablet 4 mg PO Q8H PRN (Reason: nausea and vomiting) Qty: 14 0RF Rx Instructions: Take 15-20 min prior to antibiotics albuterol sulfate 90 mcg/actuation HFA aerosol inhaler 1 - 2 inh IH Q6H PRN (Reason: shortness of breath or wheezing) Qty: 8.5 6RF Blink Tears 0.25 % drops 1 drp ophthalmic (eye) DAILY aspirin 81 mg Tablet,Delayed Release (Dr/Ec) 81 mg PO DAILY Qty: 0 0RF metronidazole 500 mg tablet 500 mg PO BID 6 Days Qty: 12 0RF ondansetron 4 mg tablet,disintegrating 4 mg PO Q8H PRNQty: 7 0RF Discharge Instructions Stand Alone Forms: Nursing Discharge Form Referrals: Jason Huff NP [Primary Care Provider] - 06/11/24 3:20 pm Activity:: Activity as Tolerated Equipment/Supplies:: No Equipment Needed Diet:: As Tolerated Discharge Orders Discharge Orders: Discharge Order (Routine); Ordered 05/26/24 Ordered By: Dinesh Phillip Discharge Data Discharge Date/Time-TO BE ENTERED AT DEPARTURE: 05/26/24 12:51 DS: Summary Time Spent with Patient providing and/or coordinating discharge services: Greater than 30 minutes Status at Discharge Functional status at discharge: independent ambulation Overall status at discharge: patient is back to baseline Mental Status: mental status grossly normal Speech and Movement: speech and movement normal Mood: congruent mood Affect: normal affect Quality:SDOH Health Related Social Needs: Health related social needs feeling lonely/isolated (Z 60.8) Exam Narrative Exam Narrative: Well-appearing older female sitting up in the bed no acute distress, ANO x 4, heart regular rhythm, lungs clear to auscultation bilaterally, abdomen soft, nontender, nondistended Psych Mental Status: mental status grossly normal Speech and Movement: speech and movement normal Mood: congruent mood Affect: normal affect DS: Data Vitals/I&O Vitals and I&O: Vital Signs Temperature 97.5 F L 05/26/24 08:04 Temperature Source Temporal Artery Scan 05/26/24 08:04 Pulse 85 05/26/24 08:04 Pulse 73 05/24/24 06:20 Respiratory Rate 18 05/26/24 08:04 Respiratory Effort Normal 05/24/24 13:00 Respiratory Depth Normal 05/24/24 13:00 Respiratory Pattern Irregular 05/24/24 13:00 Blood Pressure 154/70 H 05/26/24 08:04 Blood Pressure Mean 93 05/23/24 19:45 Pulse Oximetry 93 05/26/24 08:04 Oxygen Delivery Method Room Air 05/26/24 08:04 Oxygen Flow Rate 0 05/26/24 08:04 Pain Level 4 05/26/24 08:04 Comment Notifying RN on BP 05/26/24 08:04 Intake & Output 05/25/24 05/26/24 05/26/24 17:59 05:59 17:59 Intake Total 2167.5 / 2167.5 310 / 2477.5 Output Total 850 / 850 1500 / 2350 Balance 1317.5 / 1317.5 -1190 / 127.5 Intake: IV 1507.5 / 1507.5 10 / 1517.5 Oral 660 / 660 300 / 960 Output: Urine 850 / 850 1500 / 2350 Other: Urine Color Yellow Pale Yellow Yellow Urine Appearance Clear Clear Urine Odor Normal Normal Normal Comment unmeasured amount in toilet and brief PFSH All Active Problems (Updated 05/24/24 @ 07:53 by CHERYLE DEAL) Constipation (Acute) Acute pancreatitis (Acute) Pancreatitis (Chronic) Bacterial vaginosis (Acute) HTN (hypertension) (Chronic) COPD exacerbation (Acute) Pneumonia involving right lung (Acute) Influenza A (Acute) New daily persistent headache (Acute) wakes up with, gone by noon, pain radiates to right side of neck Abnormal weight loss (Acute) Recurrent pneumonia (Chronic) Frailty syndrome in geriatric patient (Chronic) Palliative care patient (Chronic) Palliative care is happy to urgently consult on this patient in ED and help with decisions needed at the time if staffing available. 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 Elevated urine sodium with episode of hyponatremia evaluated at [facility] 2019 GERD with esophagitis Erosive gastritis Pancreatitis Macular degeneration Hx of fracture of pelvis pt. 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 intestinal meta. or dysplasia Essential hypertension (01/14/13) Depressive disorder Atrophic vaginitis (08/19/11) Pt. states she is unsure Family history of GI malignancy Surgical History H/O sigmoidoscopy (~07/18/22) KNEE SURGERY (~05/2012) Abdominal hysterectomy EGD - MAC (04/22/17) Colonoscopy - MAC (04/22/17) Colonoscopy - MAC (~02/2012) Cholecystectomy Bladder Surgery Bilateral salpingectomy with oophorectomy Arthroplasty of knee (05/27/12) LEFT - Pt denies knee replacement Family History Mother , AGE 84 Heart disease Father , AGE 87 Stroke Heart disease Cancer Sister Stroke Brother Alcohol abuse Cancer Brother Cancer of kidney Son Hyperlipidemia Pulmonary disease Daughter Thyroid disease Daughter Cancer s/p hysterectomy Daughter No problems noted. Daughter No problems noted. Brother No problems noted. Maternal Grandfather No problems noted. Paternal Grandfather No problems noted. Maternal Grandmother No problems noted. Paternal Grandfather No problems noted. Social History Smoking/Tobacco Use Status: Former Tobacco Use tobacco type: cigarettes Quit Date: 03/17/97 Second Hand Exposure: Yes Smoking risk assessment performed?: Yes Alcohol Intake: never Drug use: Never Substance use type: does not use Adopted: No Caregiver/Support person: Yes (both boxes checked) Housing: house Number of Children: 5 Communication Needs: Hard of Hearing and Corrective Lenses Education Level: high school Do you need help understanding health information?: Always current occupation: none Pets and animals: No Sexually active: No Do you think of yourself as: straight/heterosexual Current gender identity: female What is your relationship status?: How often do you talk on the phone with friends or family?: decline to answer How often do you get together with friends or relatives?: decline to answer How often do you attend anabaptism or confucianist services?: decline to answer Do you belong to any clubs or organized social groups?: no Panel score (0-1 are the most socially isolated patients): 0 What type of physical activity do you participate in: walking Carri/Voodoo: No preference Special carri needs: No Seatbelt use: always Helmet use: No Drive intox 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 locomotive driver: No Firearms in home: No In current or past relationships, have you been: made to feel afraid Do you feel safe at home: Yes Time Spent with Patient Time Spent with Patient: <45 minutes Time was spent: preparing to see the patient(eg.review tests), obtaining and/or reviewing separately otained hiistory, ordering medications,tests, procedures, referring, communicating with other health customer care specialist, indepentently in terpreting results, counseling the patient and care coordination
--- NOTE | 2024-05-26 20:02 | CMDISCH_ITS ---
Date of service: 05/26/24 Time of Service: 20:02 LACE Index Scoring Tool Questions: Length of Stay (in days): 2 Was the patient admitted via the E.D.?: Yes Comorbidities: Chronic Pulmonary Disease E.D. Visits: 4 Answers: Total Score: 11 Risk of Readmission: High Risk Care Management Discharge Plan Reason for Hospitalization: Pancreatitis Discharge Plan: Cathy returned home today with new orders for HH PT. Her son drove her home via private vehicle. She will follow up with her PCP and discharge plan of care. She is happy to be going home. Patient/Family Education Needs: Review discharge instructions and limitations, discussion of self care needs including ask me three. Services Needed at Discharge: Home Health Care Services (new HH PT) SDOH Health Related Social Needs: Health related social needs feeling lonely/isolated (Z 60.8)
== END 2024-05-26 12:51 | disposition home health service (06) | DRG 439 ==
LOC: ER 05-24 07:49 → EDHOLD 05-24 07:53 → MS 05-24 11:29
PROVIDERS: Physician Assistant; Admitting Provider General Practice; Emergency Provider General Practice; PCP Nurse Practitioner Family; Responsible Provider Family Medicine; Visit Provider General Practice
DX: K85.90 Acute pancreatitis without necrosis or infection, unspecified (principal); E22.2 Syndrome of inappropriate secretion of antidiuretic hormone; K59.00 Constipation, unspecified; Z66 Do not resuscitate; N76.0 Acute vaginitis; I10 Essential (primary) hypertension; J44.9 Chronic obstructive pulmonary disease, unspecified; R51.9 Headache, unspecified; R53.1 Weakness; R91.8 Other nonspecific abnormal finding of lung field; D64.9 Anemia, unspecified; K22.70 Barrett's esophagus without dysplasia; Z86.73 Personal history of transient ischemic attack (TIA), and cerebral infarction without residual deficits; K21.00 Gastro-esophageal reflux disease with esophagitis, without bleeding; Z80.0 Family history of malignant neoplasm of digestive organs; F32.A Depression, unspecified; E78.5 Hyperlipidemia, unspecified; Z87.891 Personal history of nicotine dependence; N39.46 Mixed incontinence; N36.42 Intrinsic sphincter deficiency (ISD); K29.60 Other gastritis without bleeding; R11.2 Nausea with vomiting, unspecified; Z79.899 Other long term (current) drug therapy
CPT/HCPCS: 00123; 36415; 80048; 80053; 80061; 83690; 93005; 96361; 96365; 96375; 97110; 97162; 97530; 99285; 71046; 74174; 74177; 81003; 83605; 83735; 83880; 84443; 84484; 85025; 87480; 87510; 87660; 93010; 99222; 99233; 99239; 99284; J0131; J1885; J2270; J2405; J3490

== ENCOUNTER 2024-05-30 22:38 | Emergency (ER) | payer MEDICARE, SELFPAY ==
[2024-05-30] VITALS (12 sets, daily range): BP systolic 117–170; BP diastolic 57–77; PULSE 57–71; RESP 13–35; TEMP 36.4; O2SAT 91–98
--- NOTE | 2024-05-30 22:15 | RT.EKG_ITS ---
APPROVED REPORT Exam: Resting ECG Reason for Exam: weakness Patient Location: E HR:66 bpm ECG Measurements Heart Rate 66 AXIS MS 171 P 46 QRSd 85 QRS 76 QT 400 T 61 QTc 419 Conclusion Sinus rhythm...normal P axis, V-rate 60- 99 Left atrial enlargement...P, P'>60mS, <-0.15mV V1 Nonspecific T abnrm, anterolateral leads...T <-0.10mV, I aVL V2-V6 I have reviewed and interpreted ECG and agree with software generated interpretation.
--- NOTE | 2024-05-30 22:45 | DI.CT_ITS ---
Exam(s) CT BRAIN NECK CTA EXAM: CT BRAIN NECK CTA CLINICAL HISTORY: Slurred speech, now resolved, rule out stroke. TECHNIQUE: Imaging Protocol: Axial CT angiography was performed with multi-slice acquisition and mu lti-planar and MIP reconstructions. CONTRAST MATERIAL: Intravenous: Omnipaque 350 Contrast volume:100 ml COMPARISON: CT CT BRAIN NECK CTA from 01/15/2024 FINDINGS: CT Head W/O and W contrast: Ventricles and Extra axial spaces: Normal in size and morphology for the patient's age. Hemorrhage: None. Cerebral parenchyma: No evidence of acute infarct or mass. Atrophy and moderate white matter silver es of microvascular disease. Midline shift: None. Brainstem/Cerebellum: No acute findings.. Calvarium: Normal. Visualized Paranasal sinuses/Mastoids: Clear. Soft Tissues: Unremarkable. Enhancement: Normal. CTA Brain W: Internal Carotid Arteries: Petrous: Normal. Cavernous: Normal. Cerebral: Normal. Middle Cerebral Arteries: Right: No aneurysm, occlusion or significant stenosis. Left: No aneurysm, occlusion or significant stenosis. Anterior Cerebral Arteries: Right: No aneurysm, occlusion or significant stenosis. Left: No aneurysm, occlusion or significant stenosis. Posterior cerebral Arteries: Right: No aneurysm, occlusion or significant stenosis. Left: No aneurysm, occlusion or significant stenosis. Vertebral Arteries: Right: No aneurysm, occlusion or significant stenosis. Left: No aneurysm, occlusion or significant stenosis. Basilar Artery: No aneurysm, occlusion or significant stenosis. CTA Neck W: Common Carotid: Scattered mild foci of calcific plaque bilaterally. Right: No dissection, occlusion or significant stenosis. Left: No dissection, occlusion or significant stenosis. External Carotid: Right: No dissection, occlusion or significant stenosis. Left: No dissection, occlusion or significant stenosis. Internal Carotid: Right: Calcific plaque at origin causing mild stenosis.. No dissection, occlusion. Left: Calcific plaque at the origin with mild stenosis, similar to prior. No dissection, occlusion. Vertebral Artery: Right: No dissection, occlusion or significant stenosis. Left: No dissection, occlusion or significant stenosis. Lung Apices: No acute findings. Stable scarring in the left upper lobe. Bones: No acute abnormality. Degenerative changes in the cervical spine. Soft Tissues: Normal. IMPRESSION: 1. CTA brain: Normal CTA examination of the [place]. 2. Head CT: No evidence of acute infarct, mass or hemorrhage. White matter changes of microvascular disease. 3. CTA neck: Mild calcific plaque at the origins of the internal carotid arteries without significant stenosis. RADIATION DOSE DELIVERED: 1,963.35mGy.cm Total DLP DATA REPOSITORY: All CT scans at this facility are submitted to the National Radiology Data Registry (NRDR) Dose Index Registry (DIR) with the [employer] ([employer]). RADIATION OPTIMIZATION: All CT scans at this facility use at least one of these dose optimization te chniques: automated exposure control; mA and/or kV adjustment per patient size (includes targeted exa ms where dose is matched to clinical indication); or iterative reconstruction.
--- NOTE | 2024-05-30 22:56 | W.ED.GENAD ---
Discharge Plan Disposition Patient Disposition: Home Condition: Good Discharge Details Chief Complaint: GenMedical Clinical Impression: Acute hyponatremia Primary Care Provider: Jason Huff ED Provider: Tom Fernández Home Meds and New Rx's Prescriptions: No Action PreserVision AREDS 4,296 mcg-226 mg-90 mg capsule 1 cap PO BID ferrous sulfate 325 mg (65 mg iron) tablet,delayed release (DR/EC) 325 mg PO .QOD Qty: 45 4RF Thermotabs 287-180-15 mg tablet 1 tab PO TID polyethylene glycol 3350 [Miralax] 17 gram/dose powder 17 g PO DAILY (DME) Aerochamber MV Spacer See Rx Instructions .Route Qty: 1 0RF Rx Instructions: As directed metoprolol tartrate 25 mg tablet 25 mg PO BID Qty: 180 3RF triamcinolone acetonide 0.1 % cream 1 applic topical BID Qty: 30 0RF Rx Instructions: apply to urticaria prn cranberry fruit 400 mg tablet 850 mg PO DAILY Patient Comments: 04/15/24- per pt report Rx Instructions: administer with a meal estradiol 0.01 % (0.1 mg/gram) cream 1 g vaginal DAILY Qty: 42.5 2RF Patient Comments: takes mon, wed and fri Rx Instructions: local application daily for one week and then 3 times per week famotidine 20 mg tablet 20 mg PO QHS Qty: 90 3RF simvastatin 5 mg tablet 5 mg PO DAILY Qty: 90 3RF ondansetron HCl 4 mg tablet 4 mg PO Q8H PRN (Reason: nausea and vomiting) Qty: 14 0RF Rx Instructions: Take 15-20 min prior to antibiotics albuterol sulfate 90 mcg/actuation HFA aerosol inhaler 1 - 2 inh IH Q6H PRN (Reason: shortness of breath or wheezing) Qty: 8.5 6RF Blink Tears 0.25 % drops 1 drp ophthalmic (eye) DAILY aspirin 81 mg Tablet,Delayed Release (Dr/Ec) 81 mg PO DAILY Qty: 0 0RF ondansetron 4 mg tablet,disintegrating 4 mg PO Q8H PRNQty: 7 0RF Discharge Instructions Instructions: Hyponatremia Additional Instructions: At this time your sodium level was slightly low again. This is likely because of the change in your diet over the last few days from the pancreatitis. As we discussed together, the rest of your workup is reassuring, there is no evidence of urinary tract infection, stroke, or blood clot. Please continue to take your salt tablets at home, and continue to add additional salt to your food for the time being. If you notice any worsening of your symptoms, or any new symptoms such as vomiting, diarrhea, fever, chills, shortness of breath, chest pain, numbness, weakness, or fainting , please return immediately to the emergency department for reevaluation. Please follow up with your primary care provider as soon as possible for reassessment and reevaluation. As always, it was a pleasure participating in your medical care today. Referrals: Jason Huff NP [Primary Care Provider] - [facility] General Date/Time Provider Initiated Documentation: 05/30/24 22:49. HPI Narrative: 89-year-old female with a past medical history of COPD, hypertension, high cholesterol, previous TIA, depression, and a recent admission for pancreatitis with discharge 4 days ago who presents today for evaluation of slight slurred speech and suprapubic pressure sensation and urinary urgency. Patient comes in via EMS. Per EMS report patient had mild speech change earlier tonight, this is atypical, EMS was called and as she was transitioning to the hospital the speech change resolved. She also had some associated tingling in her left fingers, and noted the suprapubic pressure sensation. At this time she states that all of the speech and tingling components have resolved. She feels much better. She denies having symptoms like this in the past. She denies any falls or trauma. No other complaints at this time. She is not on any blood thinners. She does take a daily 81 mg aspirin. Related Data Home Medications ?Medication ?Instructions ?Recorded ?Confirmed polyethylene glycol 400 0.25 % eye 1 drp ophthalmic (eye) DAILY 03/10/23 05/30/24 drops (Blink Tears) macular degeneration inhalational spacing device #1 ea 05/21/23 05/30/24 (Aerochamber MV spacer) ferrous sulfate 325 mg (65 mg 325 mg PO .QOD #45 tabs 05/30/23 05/30/24 iron) tablet,delayed release polyethylene glycol 3350 17 17 g PO DAILY 06/05/23 05/30/24 gram/dose oral powder (Miralax) sodium chloride-potassium chloride 1 tab PO TID 06/05/23 05/30/24 287 mg-180 mg-15 mg tablet (Thermotabs) vitamins A,C,X-dnmw-wqwbjo 4,296 1 cap PO BID 09/29/23 05/30/24 mcg-226 mg-90 mg capsule (PreserVision AREDS) estradiol 0.01% (0.1 mg/gram) 1 g vaginal DAILY #42.5 grams 12/02/23 05/30/24 vaginal cream famotidine 20 mg tablet 20 mg PO QHS #90 tabs 01/13/24 05/30/24 aspirin 81 mg tablet,delayed 81 mg PO DAILY #0 tabs 01/16/24 05/30/24 release cranberry fruit 400 mg tablet 850 mg PO DAILY 04/15/24 05/30/24 simvastatin 5 mg tablet 5 mg PO DAILY #90 tabs 04/27/24 05/30/24 metoprolol tartrate 25 mg tablet 25 mg PO BID #180 tab-caps 04/30/24 05/30/24 triamcinolone acetonide 0.1 % 1 applic topical BID #30 grams 04/30/24 05/30/24 topical cream ondansetron HCl 4 mg tablet 4 mg PO Q8H PRN nausea and 05/10/24 05/30/24 vomiting #14 tabs albuterol sulfate 90 mcg/actuation 1 - 2 inh inhalation Q6H PRN 05/17/24 05/30/24 aerosol inhaler shortness of breath or wheezing #8.5 grams ondansetron 4 mg disintegrating 4 mg PO Q8H PRN #7 tabs 05/23/24 05/30/24 tablet Previous Rx's ?Medication ?Instructions ?Recorded inhalational spacing device #1 ea 05/21/23 (Aerochamber MV spacer) ferrous sulfate 325 mg (65 mg 325 mg PO .QOD #45 tabs 05/30/23 iron) tablet,delayed release estradiol 0.01% (0.1 mg/gram) 1 g vaginal DAILY #42.5 grams 12/02/23 vaginal cream famotidine 20 mg tablet 20 mg PO QHS #90 tabs 01/13/24 aspirin 81 mg tablet,delayed 81 mg PO DAILY #0 tabs 01/16/24 release simvastatin 5 mg tablet 5 mg PO DAILY #90 tabs 04/27/24 metoprolol tartrate 25 mg tablet 25 mg PO BID #180 tab-caps 04/30/24 triamcinolone acetonide 0.1 % 1 applic topical BID #30 grams 04/30/24 topical cream ondansetron HCl 4 mg tablet 4 mg PO Q8H PRN nausea and 05/10/24 vomiting #14 tabs albuterol sulfate 90 mcg/actuation 1 - 2 inh inhalation Q6H PRN 05/17/24 aerosol inhaler shortness of breath or wheezing #8.5 grams ondansetron 4 mg disintegrating 4 mg PO Q8H PRN #7 tabs 05/23/24 tablet Allergies Allergy/AdvReac Type Severity Reaction Status Date / Time ciprofloxacin (From Cipro) Allergy Intermediate Lips and Verified 05/30/24 23:13 face burn, feels shaky, arm tingly codeine AdvReac Intermediate Dizziness/L Verified 05/30/24 23:13 ightheade lovastatin AdvReac Intermediate myalgias Verified 05/30/24 23:13 oxycodone AdvReac Intermediate NAUSEA, GI Verified 05/30/24 23:13 UPSET azithromycin AdvReac cramping, Verified 05/30/24 23:13 anorexia doxycycline AdvReac Nausea, Verified 05/30/24 23:13 Vomiting hydrocodone AdvReac unknown Verified 05/30/24 23:13 General Stated Complaint: GenMedical MELINDA: 3 Exam Narrative Exam Narrative: 1.Const: Well-nourished, Well-developed, appearing stated age 2.Eyes: PERRL, no conjunctival injection, and symmetrical lids. 3.ENT: Atraumatic external nose and ears. Moist MM. Neck: Symmetric, trachea midline, No thyromegaly. 4.CVS: +S1/S2, Peripheral pulses 2+ and equal in all extremities. Brisk capillary refill in all extremities. 5.RESP: Unlabored respiratory effort. Clear to auscultation bilaterally. No wheezes rales or rhonchi 6.GI: Soft, Nontender/Nondistended, No hepatosplenomegaly. No guarding or rebound. On palpation of the suprapubic region, she demonstrates slight urgency sensation. No redness or tenderness. No evidence of significant external vaginal abnormality. 7.MSK: Normocephalic/Atraumatic, Extremities w/o deformity or ttp No cyanosis or clubbing, Normal movement of all extremities 8.Skin: Warm, Dry. No rashes or lesions. 9.Neuro: photograph enlarger II-XII grossly intact. Sensation grossly intact, no focal neurologic deficits. All 6 cardinal planes of vision are fully intact. No evidence of rotatory or vertical nystagmus. The patient demonstrated a normal ajxfgh-lgsf-whphni, good dexterity. There was no evidence of dysdiadochokinesia. Patient was able to ambulate without difficulty. There was no wide-based gait. Romberg testing was normal. Rtxc-bw-zewu testing was normal. Sensation was intact bilaterally as well as muscle strength bilaterally for all extremities. Patient was able to verbalize butter cup with no slurring, or miss pronunciation. CN 2-12 tested and intact, patient is able to hold bilateral arms up for 5 seconds and there is no pronator drift, patient also holds legs up for 10 seconds bilaterally without any drop, sensation intact to light touch in hands and feet bilaterally. Cerebellar exam normal as tested by wgguum-orjg-tjwwxk, rapid alternating movements, fine finger movements. Visual sales intact peripherally. Normal speech pattern and verbal understanding. 10.Psych: (AAO) x3. Appropriate mood and affect Course Vital Signs Vital signs: Vital Signs Temperature 36.4 C L 05/30/24 22:38 Pulse 71 05/30/24 22:38 Respiratory Rate 16 05/30/24 22:38 Blood Pressure 170/77 H 05/30/24 22:38 Pulse Oximetry 92 05/30/24 22:38 Temperature 36.4 C L 05/30/24 22:38 Temperature Source Temporal Artery Scan 05/30/24 22:38 Pulse 71 05/30/24 22:38 Respiratory Rate 16 05/30/24 22:38 Blood Pressure 170/77 H 05/30/24 22:38 Blood Pressure Position Supine 05/30/24 22:38 Pulse Oximetry 92 05/30/24 22:38 Oxygen Delivery Method Room Air 05/30/24 22:38 Oxygen Flow Rate 0 05/30/24 22:38 Medical Decision Making 89-year-old female with a past medical history of COPD, hypertension, high cholesterol, previous TIA, depression, and a recent admission for pancreatitis with discharge 4 days ago who presents today for evaluation of slight slurred speech and suprapubic pressure sensation and urinary urgency. Patient comes in via EMS. Per EMS report patient had mild speech change earlier tonight, this is atypical, EMS was called and as she was transitioning to the hospital the speech change resolved. She also had some associated tingling in her left fingers, and noted the suprapubic pressure sensation. At this time she states that all of the speech and tingling components have resolved. She feels much better. She denies having symptoms like this in the past. She denies any falls or trauma. No other complaints at this time. She is not on any blood thinners. She does take a daily 81 mg aspirin. Exam demonstrates normal neurologic assessment, no focal deficits. No evidence of speech disturbance or clear evidence of stroke. Concern for potential TIA versus urinary tract infection causing change in sensorium. Suprapubic tenderness is concerning for UTI. Will evaluate for this, gently rehydrate, get CT CTA to rule out stroke or clot, monitor closely and reassess. Patient is not a candidate for TNK or tPA at this time as she has an NIH stroke score of 0, and no residual deficits. 2:09 AM Laboratory workup has returned, no white count bandemia or left shift, patient does have hyponatremia at 128. Renal function stable, other electrolytes normal. Urinalysis shows no evidence of UTI. Patient no longer has suprapubic pain or discomfort after urinating. Patient does have a history of hyponatremia in the past, she does take salt pills however her diet has been liquid diet for the last few days after discharge from the pancreatitis that she had. I suspect she has been having a lower than normal intake of oral sodium, which brought about her hyponatremia in conjunction with her history of SIADH, patient was given an initial 500 cc bolus on arrival, and then a second 500 cc bolus of normal saline was given, recheck of her sodium demonstrates 133, she remains asymptomatic for her other symptomatology of altered speech. CTA of the head and neck shows no evidence of bleed, stroke, or clot. Patient remains clinically well. No evidence of urinary tract infection. I do feel that the patient does not require admission at this time, and already does have sodium tablets appropriate for home. Discussed the case with her son, discussed the importance of continued salt intake, free water restriction, and close follow-up with her PCP. He understands. Patient will be discharged home. Discussed red flags for which to return. I have extensively reviewed the treatment plan and discharge instructions with the patient and their family. I have addressed all patient concerns at this time. The patient and family was made aware of what symptoms to monitor for that would warrant a return to the emergency department. Discussed the plan with the patient and family, they demonstrate verbal understanding and agreement with our assessment and plan at this time. The documentation in this chart was dictated using [employer] dictation software. Please excuse any dictation errors. FINDINGS: ANTERIOR CIRCULATION: Right internal carotid artery: Intracranial segment is patent with no significant stenosis or occlusion. No aneurysm. Right middle cerebral artery: No occlusion or significant stenosis. No aneurysm. Right anterior cerebral artery: No occlusion or significant stenosis. No aneurysm. Left internal carotid artery: Intracranial segment is patent with no significant stenosis. No aneurysm. Left middle cerebral artery: No occlusion or significant stenosis. No aneurysm. Left anterior cerebral artery: No occlusion or significant stenosis. No aneurysm. POSTERIOR CIRCULATION: Right vertebral artery: No occlusion or significant stenosis. No aneurysm. Left vertebral artery: No occlusion or significant stenosis. No aneurysm. Basilar artery: No occlusion or significant stenosis. No aneurysm. Right posterior cerebral artery: No occlusion or significant stenosis. No aneurysm. Left posterior cerebral artery: No occlusion or significant stenosis. No aneurysm. HEAD: Brain: There is moderate generalized cerebral atrophy. Diffuse white matter hypoattenuation compatible with chronic microvascular ischemic changes. No intracranial mass, hemorrhage or evidence of acute ischemia. Cerebral ventricles: Normal. No ventriculomegaly. Bones: Unremarkable. No acute fracture. Paranasal sinuses: Visualized sinuses are normal. No fluid levels. Mastoid air cells: Visualized mastoids are normal. No mastoid effusion. Soft tissues: Unremarkable. IMPRESSION: 1. No large vessel intracranial stenosis or occlusion 2. No acute intracranial abnormality FINDINGS: Right common carotid artery: No stenosis. No dissection or occlusion. Right internal carotid artery: Densely calcified plaque produces less than 50% stenosis of the origin of the right internal carotid artery. Right external carotid artery: No occlusion or stenosis of the origin. Left common carotid artery: No stenosis. No dissection or occlusion. Left internal carotid artery: Calcified plaque produces less than 50% stenosis of the origin of the left internal carotid artery. Left external carotid artery: Mild stenosis of the origin of the left ECA. Right vertebral artery: No stenosis. No dissection or occlusion. Left vertebral artery: No stenosis. No dissection or occlusion. Soft tissues: Normal. No significant soft tissue swelling. Bones/joints: Moderate degenerative changes throughout the cervical spine. Mild grade 1 anterolisthesis of C2. No acute fracture. IMPRESSION: 1. Mild bilateral ICA stenosis. Mild left ECA stenosis 2. Patent bilateral vertebral arteries 3. Degenerative changes throughout the cervical spine. REFERENCES: NASCET CRITERIA. The degree of stenosis in the cervical segment of the internal carotid artery is based on NASCET criteria. Normal is no stenosis. Mild is less than 50% stenosis. Moderate is 50- 69% stenosis. Severe is 70% to 99% stenosis. Total occlusion is no detectable patent lumen. Thank you for allowing us to participate in the care of your patient. Dictated and Authenticated by: Phil Hamilton MD 05/31/2024 12:34 AM Eastern Time ([place] & [place]) Quality:SDOH Health Related Social Needs: Health related social needs feeling lonely/isolated (Z60.8) PFSH All Active Problems (Updated 05/31/24 @ 02:07 by Tom Fernández DO) Acute hyponatremia (Acute) Constipation (Acute) Pancreatitis (Chronic) Bacterial vaginosis (Acute) HTN (hypertension) (Chronic) COPD exacerbation (Acute) Pneumonia involving right lung (Acute) Influenza A (Acute) New daily persistent headache (Acute) wakes up with, gone by noon, pain radiates to right side of neck Abnormal weight loss (Acute) Recurrent pneumonia (Chronic) Frailty syndrome in geriatric patient (Chronic) Palliative care patient (Chronic) Palliative care is happy to urgently consult on this patient in ED and help with decisions needed at the time if staffing available. 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 Elevated urine sodium with episode of hyponatremia evaluated at [facility] 2019 GERD with esophagitis Erosive gastritis Pancreatitis Macular degeneration Hx of fracture of pelvis pt. 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 intestinal meta. or dysplasia Essential hypertension (01/14/13) Depressive disorder Atrophic vaginitis (08/19/11) Pt. states she is unsure Family history of GI malignancy Surgical History H/O sigmoidoscopy (~07/18/22) KNEE SURGERY (~05/2012) Abdominal hysterectomy EGD - MAC (04/22/17) Colonoscopy - MAC (04/22/17) Colonoscopy - MAC (~02/2012) Cholecystectomy Bladder Surgery Bilateral salpingectomy with oophorectomy Arthroplasty of knee (05/27/12) LEFT - Pt denies knee replacement Family History Mother , AGE 84 Heart disease Father , AGE 87 Stroke Heart disease Cancer Sister Stroke Brother Alcohol abuse Cancer Brother Cancer of kidney Son Hyperlipidemia Pulmonary disease Daughter Thyroid disease Daughter Cancer s/p hysterectomy Daughter No problems noted. Daughter No problems noted. Brother No problems noted. Maternal Grandfather No problems noted. Paternal Grandfather No problems noted. Maternal Grandmother No problems noted. Paternal Grandfather No problems noted. Social History Smoking/Tobacco Use Status: Former Tobacco Use tobacco type: cigarettes Quit Date: 03/17/97 Second Hand Exposure: Yes Smoking risk assessment performed?: Yes Alcohol Intake: never Drug use: Never Substance use type: does not use Adopted: No Caregiver/Support person: Yes (both boxes checked) Housing: house Number of Children: 5 Communication Needs: Hard of Hearing and Corrective Lenses Education Level: high school Do you need help understanding health information?: Always current occupation: none Pets and animals: No Sexually active: No Do you think of yourself as: straight/heterosexual Current gender identity: female What is your relationship status?: How often do you talk on the phone with friends or family?: decline to answer How often do you get together with friends or relatives?: decline to answer How often do you attend scientologist or scientologist services?: decline to answer Do you belong to any clubs or organized social groups?: no Panel score (0-1 are the most socially isolated patients): 0 What type of physical activity do you participate in: walking Carri/Episcopal: No preference Special carri needs: No Seatbelt use: always Helmet use: No Drive intox 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 commercial driver: No Firearms in home: No In current or past relationships, have you been: made to feel afraid Do you feel safe at home: Yes
[2024-05-30 23:04] LABS: Abs Immature Grans 0.02 10^3/uL (0.0-0.06); Absolute Basophil Count 0.02 10^3/uL (0.0-0.2); Absolute Eosinophil Count 0.08 10^3/uL (0.0-0.7); Absolute Lymphocyte Count 1.38 10^3/uL (1.2-3.4); Absolute Monocyte Count 0.77 10^3/uL (0.1-0.8); Absolute Neutrophil Count 3.69 10^3/uL (1.2-6.7); Basophils % 0.3 %; Eosinophils % 1.3 %; HCT 34.8 % (36.0-46.0); HGB 11.6 g/dL (11.2-15.7); Immature Grans % 0.3 %; Lymphocytes % 23.2 %; MCH 29.9 pg (27.0-33.0); MCHC 33.3 % (32.0-36.0); MCV 90 fL (80-95); MPV 9.8 fL (8.0-11.0); Monocytes % 12.9 %; Platelet Count 163 10^3/uL (130-400); RBC 3.88 10^6/uL (3.93-5.22); RDW 12.7 % (11.7-14.6); RDW-SD 41.4 fL; WBC 5.96 10^3/uL (4.4-10.8)
[2024-05-30] MEDS: Normal Saline 500 ML IV (23:07)
[2024-05-30 23:08] LABS: Bilirubin Negative (Negative); Blood Negative (Negative); Clarity Clear (Clear); Glucose Negative (Negative); Ketones Negative (Negative); Leukocyte Esterase Negative (Negative); Nitrite Negative (Negative); Urobilinogen 0.2 mg/dL (Up to 0.2)
[2024-05-30 23:18] LABS: INR 1.1 (0.9-1.1); Prothrombin Time 11.3 sec (9.1-11.1)
[2024-05-30 23:20] LABS: ALT 54 U/L (14-59); AST 30 U/L (15-37); Albumin 3.4 g/dL (3.4-5.0); Alkaline Phosphatase 109 U/L (46-116); Anion Gap 2.3 mmol/L (3-11); BUN 15 mg/dL (7-18); Bilirubin, Total 0.7 mg/dL (0.2-1.0); CO2 30.7 mmol/L (21.0-32.0); Calcium 9.1 mg/dL (8.5-10.1); Chloride 95 mmol/L (98-107); Estimated GFR 54.53 (mL/min/1.73m2); Glucose 92 mg/dL (74-106); Potassium 4.7 mmol/L (3.5-5.1); Sodium 128 mmol/L (136-145); Total Protein 6.5 g/dL (6.4-8.2)
[2024-05-30] MEDS: Omnipaque 350 MG/ML 100 ML BTL IJ (23:40)
[2024-05-30] MEDS: Normal Saline Flush 10 ML SYR IVP (23:41)
[2024-05-30] MEDS: Normal Saline - Diluent 50 ML VIAL IJ (23:41)
[2024-05-31] VITALS (18 sets, daily range): BP systolic 156–179; BP diastolic 47–73; PULSE 59–78; RESP 12–26; O2SAT 78–100
[2024-05-31] MEDS: Normal Saline 500 ML IV (00:22)
--- NOTE | 2024-05-31 00:34 | DI.VRAD_ITS ---
PROCEDURE INFORMATION: Exam: CTA Head Without And With Contrast, Arteriography Exam date and time: 05/30/2024 11:41 PM Age: 89 years old Clinical indication: Stroke-like symptoms; Speech disturbance; Additional info: Slurred speech, now resolved, rule out stroke TECHNIQUE: Imaging protocol: Computed tomographic angiography of the head without and with contrast. Exam focused on the arteries. 3D rendering (Not supervised by radiologist): MIP and/or 3D reconstructed images were created by the technologist. Radiation optimization: All CT scans at this facility use at least one of these dose optimization techniques: automated exposure control; mA and/or kV adjustment per patient size (includes targeted exams where dose is matched to clinical indication); or iterative reconstruction. Contrast material: OMNIPAQUE 350; Contrast volume: 70 ml; Contrast route: INTRAVENOUS (IV); Other technique: STROKE PROTOCOL was implemented. COMPARISON: CT BRAIN NECK CTA 01/15/2024 11:09 AM FINDINGS: ANTERIOR CIRCULATION: Right internal carotid artery: Intracranial segment is patent with no significant stenosis or occlusion. No aneurysm. Right middle cerebral artery: No occlusion or significant stenosis. No aneurysm. Right anterior cerebral artery: No occlusion or significant stenosis. No aneurysm. Left internal carotid artery: Intracranial segment is patent with no significant stenosis. No aneurysm. Left middle cerebral artery: No occlusion or significant stenosis. No aneurysm. Left anterior cerebral artery: No occlusion or significant stenosis. No aneurysm. POSTERIOR CIRCULATION: Right vertebral artery: No occlusion or significant stenosis. No aneurysm. Left vertebral artery: No occlusion or significant stenosis. No aneurysm. Basilar artery: No occlusion or significant stenosis. No aneurysm. Right posterior cerebral artery: No occlusion or significant stenosis. No aneurysm. Left posterior cerebral artery: No occlusion or significant stenosis. No aneurysm. HEAD: Brain: There is moderate generalized cerebral atrophy. Diffuse white matter hypoattenuation compatible with chronic microvascular ischemic changes. No intracranial mass, hemorrhage or evidence of acute ischemia. Cerebral ventricles: Normal. No ventriculomegaly. Bones: Unremarkable. No acute fracture. Paranasal sinuses: Visualized sinuses are normal. No fluid levels. Mastoid air cells: Visualized mastoids are normal. No mastoid effusion. Soft tissues: Unremarkable. IMPRESSION: 1. No large vessel intracranial stenosis or occlusion 2. No acute intracranial abnormality. ASSESSMENT: ASPECTS ([place] Stroke Program Early CT Score) is 10. PROCEDURE INFORMATION: Exam: CTA Neck Without And With Contrast Exam date and time: 05/30/2024 11:41 PM Age: 89 years old Clinical indication: Stroke-like symptoms; Speech disturbance; Additional info: Slurred speech, now resolved, rule out stroke TECHNIQUE: Imaging protocol: Computed tomographic angiography of the neck without and with contrast. Exam focused on the cervical segments of the vasculature. 3D rendering (Not supervised by radiologist): MIP and/or 3D reconstructed images were created by the technologist. Radiation optimization: All CT scans at this facility use at least one of these dose optimization techniques: automated exposure control; mA and/or kV adjustment per patient size (includes targeted exams where dose is matched to clinical indication); or iterative reconstruction. Contrast material: OMNIPAQUE 350; Contrast volume: 70 ml; Contrast route: INTRAVENOUS (IV); COMPARISON: CT BRAIN NECK CTA 01/15/2024 11:09 AM FINDINGS: Right common carotid artery: No stenosis. No dissection or occlusion. Right internal carotid artery: Densely calcified plaque produces less than 50% stenosis of the origin of the right internal carotid artery. Right external carotid artery: No occlusion or stenosis of the origin. Left common carotid artery: No stenosis. No dissection or occlusion. Left internal carotid artery: Calcified plaque produces less than 50% stenosis of the origin of the left internal carotid artery. Left external carotid artery: Mild stenosis of the origin of the left ECA. Right vertebral artery: No stenosis. No dissection or occlusion. Left vertebral artery: No stenosis. No dissection or occlusion. Soft tissues: Normal. No significant soft tissue swelling. Bones/joints: Moderate degenerative changes throughout the cervical spine. Mild grade 1 anterolisthesis of C2. No acute fracture. IMPRESSION: 1. Mild bilateral ICA stenosis. Mild left ECA stenosis 2. Patent bilateral vertebral arteries 3. Degenerative changes throughout the cervical spine. REFERENCES: NASCET CRITERIA. The degree of stenosis in the cervical segment of the internal carotid artery is based on NASCET criteria. Normal is no stenosis. Mild is less than 50% stenosis. Moderate is 50-69% stenosis. Severe is 70% to 99% stenosis. Total occlusion is no detectable patent lumen. Dictated and Authenticated by: Phil Hamilton MD. Orderin Pradeep Santos MD
--- NOTE | 2024-05-31 00:36 | NUR.NOTE ---
Placed Pure Wick on Pt for ease and comfort of urination with precision thread grinder operator assistance, JUNIOR
[2024-05-31 01:54] LABS: Anion Gap 4.2 mmol/L (3-11); BUN 13 mg/dL (7-18); CO2 29.8 mmol/L (21.0-32.0); CREATININE 0.9 mg/dL (0.55-1.02); Calcium 8.8 mg/dL (8.5-10.1); Chloride 99 mmol/L (98-107); Estimated GFR 61.87 (mL/min/1.73m2); Glucose 84 mg/dL (74-106); Potassium 4.4 mmol/L (3.5-5.1); Sodium 133 mmol/L (136-145)
== END 2024-05-31 02:10 | disposition home or self-care (01) ==
LOC: ER 05-31 02:25
PROVIDERS: Emergency Provider Student in an Organized Health Care Education/Training Program; PCP Nurse Practitioner Family
DX: E87.1 Hypo-osmolality and hyponatremia (principal); I10 Essential (primary) hypertension; E78.5 Hyperlipidemia, unspecified; J44.9 Chronic obstructive pulmonary disease, unspecified; Z86.73 Personal history of transient ischemic attack (TIA), and cerebral infarction without residual deficits; Z79.82 Long term (current) use of aspirin; Z87.891 Personal history of nicotine dependence
CPT/HCPCS: 70496; 70498; 80048; 80053; 93005; 96360; 96361; 99285; 81003; 85025; 85610; 85730; 87086; 93010; J3490

== ENCOUNTER 2024-06-10 21:29 | Outpatient (REF) | payer MEDICARE, SELFPAY ==
[2024-06-10 22:06] LABS: Abs Immature Grans 0.02 10^3/uL (0.0-0.06); Absolute Basophil Count 0.02 10^3/uL (0.0-0.2); Absolute Eosinophil Count 0.08 10^3/uL (0.0-0.7); Absolute Lymphocyte Count 0.96 10^3/uL (1.2-3.4); Absolute Monocyte Count 0.57 10^3/uL (0.1-0.8); Absolute Neutrophil Count 4.47 10^3/uL (1.2-6.7); Basophils % 0.3 %; Eosinophils % 1.3 %; HCT 36.4 % (36.0-46.0); HGB 12.2 g/dL (11.2-15.7); Immature Grans % 0.3 %; Lymphocytes % 15.7 %; MCH 30.7 pg (27.0-33.0); MCHC 33.5 % (32.0-36.0); MCV 92 fL (80-95); MPV 11.3 fL (8.0-11.0); Monocytes % 9.3 %; Neutrophils % 73.1 %; Platelet Count 191 10^3/uL (130-400); RBC 3.98 10^6/uL (3.93-5.22); RDW 13.3 % (11.7-14.6); RDW-SD 45.1 fL; WBC 6.12 10^3/uL (4.4-10.8)
[2024-06-10 22:17] LABS: ALT 32 U/L (14-59); AST 23 U/L (15-37); Albumin 3.6 g/dL (3.4-5.0); Alkaline Phosphatase 93 U/L (46-116); Amylase 77 U/L (25-115); Anion Gap 3.7 mmol/L (3-11); BUN 14 mg/dL (7-18); Bilirubin, Total 0.4 mg/dL (0.2-1.0); CO2 31.3 mmol/L (21.0-32.0); CREATININE 0.9 mg/dL (0.55-1.02); Chloride 96 mmol/L (98-107); Estimated GFR 61.87 (mL/min/1.73m2); Glucose 118 mg/dL (74-106); Lipase 92 U/L (<78); Sodium 131 mmol/L (136-145); Total Protein 6.5 g/dL (6.4-8.2)
== END 2024-06-10 21:30 | disposition home or self-care (01) ==
LOC: LBN 21:29
PROVIDERS: PCP Nurse Practitioner Family; Visit Provider Nurse Practitioner Family
DX: K85.90 Acute pancreatitis without necrosis or infection, unspecified (principal); E87.1 Hypo-osmolality and hyponatremia
CPT/HCPCS: 80053; 83690; 82150; 85025

== ENCOUNTER 2024-06-25 06:00 | Day surgery (SDC) | payer MEDICARE, SELFPAY ==
[2024-06-25 06:15] VITALS: BP 156/74; PULSE 59; RESP 16; TEMP 36.5; O2SAT 97
--- NOTE | 2024-06-25 06:15 | W.ANESPRE ---
General Info Date of Service Date Performed: 06/25/24 Height: 5 ft Weight: 52.617 kg Body Mass Index (BMI): 22.6 Surgical Procedure: Operation Date: 06/25/24 07:40 Proposed Procedure Side Surgeon p Cataract Extraction with IOL Implant Right Tremayne Lowry MD Meds Allergies and Home Medications Allergies Allergy/AdvReac Type Severity Reaction Status Date / Time ciprofloxacin (From Cipro) Allergy Intermediate Lips and Verified 06/25/24 06:37 face burn, feels shaky, arm tingly codeine AdvReac Intermediate Dizziness/L Verified 06/25/24 06:37 ightheade lovastatin AdvReac Intermediate myalgias Verified 06/25/24 06:37 oxycodone AdvReac Intermediate NAUSEA, GI Verified 06/25/24 06:37 UPSET azithromycin AdvReac cramping, Verified 06/25/24 06:37 anorexia doxycycline AdvReac Nausea, Verified 06/25/24 06:37 Vomiting hydrocodone AdvReac unknown Verified 06/25/24 06:37 Home Medication ?Medication ?Instructions ?Recorded polyethylene glycol 400 0.25 % eye 1 drp ophthalmic (eye) DAILY 03/10/23 drops (Blink Tears) macular degeneration inhalational spacing device #1 ea 05/21/23 (Aerochamber MV spacer) polyethylene glycol 3350 17 17 g PO DAILY 06/05/23 gram/dose oral powder (Miralax) vitamins A,C,X-[id number]-[id number] 4,296 1 cap PO BID 09/29/23 mcg-226 mg-90 mg capsule (PreserVision AREDS) estradiol 0.01% (0.1 mg/gram) 1 g vaginal DAILY #42.5 grams 12/02/23 vaginal cream famotidine 20 mg tablet 20 mg PO QHS #90 tabs 01/13/24 aspirin 81 mg tablet,delayed 81 mg PO DAILY #0 tabs 01/16/24 release cranberry fruit 400 mg tablet 850 mg PO DAILY 04/15/24 simvastatin 5 mg tablet 5 mg PO DAILY #90 tabs 04/27/24 metoprolol tartrate 25 mg tablet 25 mg PO BID #180 tab-caps 04/30/24 triamcinolone acetonide 0.1 % 1 applic topical BID #30 grams 04/30/24 topical cream ondansetron HCl 4 mg tablet 4 mg PO Q8H PRN nausea and 05/10/24 vomiting #14 tabs albuterol sulfate 90 mcg/actuation 1 - 2 inh inhalation Q6H PRN 05/17/24 aerosol inhaler shortness of breath or wheezing #8.5 grams ondansetron 4 mg disintegrating 4 mg PO Q8H PRN #7 tabs 05/23/24 tablet sodium chloride-potassium chloride 1 tab PO QID 06/11/24 287 mg-180 mg-15 mg tablet (Thermotabs) Current Visit Medications: Current Medications Generic Name Dose Route Start Last Admin Trade Name Freq PRN Reason Stop Dose Admin Acetaminophen 1,000 mg 06/25/24 06:15 Acetaminophen 500 Mg Tab PO 07/25/24 06:14 Q4H PRN PRN Balanced Salt Solution 500 ml 06/25/24 06:15 Balanced Salt Soln.-Plus 500 Ml Bag OP 07/25/24 06:14 DIRECTED KATH Miscellaneous Medication 0 ml 06/25/24 06:15 Prednisolone 1%, Moxifloxacin 0.5%, Bromfenac 0.09% 5.6ml Btl OD 07/25/24 06:14 DIRECTED KATH Miscellaneous Medication 0 ml 06/25/24 06:15 Tropicam./Phenyleph. (1/2.5%) 5 Ml Btl OD 07/25/24 06:14 DIRECTED KATH Tetracaine HCl 0 ml 06/25/24 06:15 Tetracaine 0.5% 4 Ml Btl OD 07/25/24 06:14 DIRECTED KATH PFSH Active Problems Active Problems: Problem Status Onset Code Cortical age-related cataract, right eye Acute H25.011 Nuclear age-related cataract, right eye Acute H25.11 Acute hyponatremia Acute E87.1 Pancreatitis Chronic K85.90 Bacterial vaginosis Acute N76.0, B96.89 HTN (hypertension) Chronic I10 COPD exacerbation Acute J44.1 New daily persistent headache Acute G44.52 Frailty syndrome in geriatric patient Chronic R54 Palliative care patient Chronic Z51.5 Urinary incontinence Chronic R32 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 Generalized weakness Chronic R53.1 Constipation Chronic K59.00 LUQ abdominal pain Chronic R10.12 Serrated adenoma of colon Chronic ~07/18/22 D12.6 Neck pain on right side Chronic M54.2 Dermatitis Chronic L30.9 Anemia Chronic D64.9 Pulmonary nodules Chronic R91.8 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 Elevated urine sodium with episode of hyponatremia evaluated at [facility] 2019 GERD with esophagitis Erosive gastritis Pancreatitis Macular degeneration Hx of fracture of pelvis pt. 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 intestinal meta. or dysplasia Essential hypertension (01/14/13) Depressive disorder Atrophic vaginitis (08/19/11) Pt. states she is unsure Family history of GI malignancy Surgical History Surgical History H/O sigmoidoscopy (~07/18/22) KNEE SURGERY (~05/2012) Abdominal hysterectomy EGD - MAC (04/22/17) Colonoscopy - MAC (04/22/17) Colonoscopy - MAC (~02/2012) Cholecystectomy Bladder Surgery Bilateral salpingectomy with oophorectomy Arthroplasty of knee (05/27/12) LEFT - Pt denies knee replacement Tobacco Smoking/Tobacco Use Status: Former Tobacco Use Passive smoking exposure: Yes Second hand exposure: Yes Alcohol Alcohol Intake: never Substance Use Substance use: Never Substance use type: does not use Vital Signs and Lab Results Vital Signs Most Recent Vital Signs in EMR: Temp Pulse Resp BP Pulse Ox 36.5 C 59 L 16 156/74 H 97 06/25/24 06:15 06/25/24 06:15 06/25/24 06:15 06/25/24 06:15 06/25/24 06:15 Lab Results Blood Type / Crossmatch: No Data to Display Complete Blood Count: White Blood Count 6.12 10^3/uL (4.4-10.8) 06/10/24 11:35 Red Blood Count 3.98 10^6/uL (3.93-5.22) 06/10/24 11:35 Hemoglobin 12.2 g/dL (11.2-15.7) 06/10/24 11:35 Hematocrit 36.4 % (36.0-46.0) 06/10/24 11:35 Platelet Count 191 10^3/uL (130-400) 06/10/24 11:35 Complete Metabolic Panel: Sodium 131 mmol/L (136-145) L 06/10/24 11:35 Potassium 5.0 mmol/L (3.5-5.1) 06/10/24 11:35 Chloride 96 mmol/L (98-107) L 06/10/24 11:35 Carbon Dioxide 31.3 mmol/L (21.0-32.0) 06/10/24 11:35 BUN 14 mg/dL (7-18) 06/10/24 11:35 Creatinine 0.9 mg/dL (0.55-1.02) 06/10/24 11:35 Est GFR (CKD-EPI 2020) 61.87 (mL/min/1.73m2) 06/10/24 11:35 Calcium 9.0 mg/dL (8.5-10.1) 06/10/24 11:35 Albumin 3.6 g/dL (3.4-5.0) 06/10/24 11:35 Glucose 118 mg/dL (74-106) H 06/10/24 11:35 Liver Function Panel: Alanine Aminotransferase (ALT/SGPT) 32 U/L (14-59) 06/10/24 11:35 Aspartate Amino Transf (AST/SGOT) 23 U/L (15-37) 06/10/24 11:35 Coagulation Panel: INR International Normalized Ratio 1.1 (0.9-1.1) 05/30/24 22:56 Prothrombin Time 11.3 sec (9.1-11.1) H 05/30/24 22:56 Activated Partial Thromboplast Time 23.0 sec (20.6-30.2) 05/30/24 22:56 Cardiac Panel: No Data to Display Arterial Blood Gas: No Data to Display Venous Blood Gas: No Data to Display Pancreas Panel: Amylase Level 77 U/L (25-115) 06/10/24 11:35 Lipase 92 U/L (<78) H 06/10/24 11:35 Thyroid Panel: No Data to Display Infectious Disease: No Data to Display Blood Cultures: No Data to Display Toxicology Panel: No Data to Display Imaging and Studies Imaging and Studies Study information below may be from another EMR and interpreted by another provider. Please see original notes in EMR for more complete details. EKG Summary: 01/05 Conclusion Sinus rhythm...normal P axis, V-rate 60- 99 Left atrial enlargement...P, P'>60mS, <-0.15mV V1 Anesthesia Assessment and Plan Anesthesia History Personal History: No History of Anesthesia Complications Family History: No Family History of Anesthesia Complications Exercise Tolerance Exercise Tolerance: Metabolic Equivalents>4 Cardiac & Pulmonary Exam Cardiac Exam: Normal S1/S2 Heart Sounds Pulmonary Exam: Clear Bilateral Breath Sounds Implantable Cardiac Device Does patient have a Pacemaker or an ICD?: No Airway Exam Known Difficult Airway: No Mallampati Class: 3 Mouth Opening: Normal (> 3cm) Thyromental Distance: Greater than 3 cm Neck Range of Motion: Full ROM Neck Circumference: Normal Teeth Condition: Normal Dentition and Removable Dentures/Plates Upper ASA Classification ASA Score: ASA 3 Emergency Case?: No NPO Status NPO Status: NPO Clears >2 hours, Solids >8 hours Anesthesia Plan Resuscitation Status: Full Code Anesthesia Technique: MAC Anesthesia Airway Planned: Natural Airway Monitors Used: Standard Monitors Preoperative Comments:: 89 yo for cataract removal. Sig PMHx: HTN, COPD, SIADH, Sherwood's/GERD, TIA. ECG: sinus, LIAM. ECHO: LVEF 60%, trace AR. RVSP 31 mmhg. Previous Anes: - colo/egd, prop, natural airway, no issues. - egd, lido/prop, no issues. - cysto, prop, natural airway, no issues. Discussed MAC. No MKO.
[2024-06-25] MEDS: Tropicam./Phenyleph. (1/2.5%) 5 ML BTL OD ×3 (06:50→07:03)
[2024-06-25 07:02] VITALS: BMI 22.6
[2024-06-25] MEDS: Prednisolone 1%, Moxifloxacin 0.5%, Bromfenac 0.09% 5.6ML BTL 5.6 ML (07:37)
[2024-06-25] MEDS: Tetracaine 0.5% 4 ML BTL (07:38)
[2024-06-25] MEDS: Moxifloxacin-PF 1 MG/ML VIAL (07:39)
[2024-06-25] MEDS: Lidocaine 1% Pres-Free 5 ML VIAL (07:39)
[2024-06-25] MEDS: Phenylephrine/Lidocaine (15/10) MG/ML 1 ML VIAL (07:40)
[2024-06-25] MEDS: Povidone-Iodine Ophth 30 ML BTL (07:41)
[2024-06-25] MEDS: Duovisc Viscoelastic System EACH 1 EACH (07:41)
[2024-06-25] MEDS: Balanced Salt Soln.-PLUS 500 ML BAG OP (07:42)
--- NOTE | 2024-06-25 07:58 | ROE_ITS ---
Operative Note Operative Note PRE-OP DIAGNOSIS: Nuclear/cortical cataract, right eye POST-OP DIAGNOSIS: same PROCEDURE: Cataract extraction using phacoemulsification with intraocular lens implant, right eye SURGEON: Tremayne Lowry ANESTHESIA TYPE: Local By Surgeon and MAC Refer to Anesthesia Record ESTIMATED BLOOD LOSS: 0 PATHOLOGY: none sent COMPLICATIONS: None Patient was transported to: same day Patient's condition: stable Implants: Eddie Clareon [id number] Indications: Progressive decreased vision due to cataract, right eye Procedure Description: CATARACT SURGERY OPERATIVE REPORT PREOPERATIVE DIAGNOSIS: Nuclear/cortical cataract, right eye POSTOPERATIVE DIAGNOSIS: Same OPERATION: Cataract extraction using phacoemulsification with posterior chamber intraocular lens implant, right eye. IOL: IOL Mechanical Engineering Intern/Model: Eddie Clareon [id number] IOL Power: + 21.5 diopters IOL Serial Number: [id number] Optic Diameter: 6.0mm Haptic/Overall Diameter: 13.0mm PHACO INFO: Eddie Centurion Vision System with OZil and Active Fluidics Cumulative Dispersed Energy (CDE): 12.57 seconds SURGEON: Tremayne Lowry MD, GURDEEP ANESTHESIA: Monitored Anesthesia Care (MAC), with local sub-tenon's anesthetic infiltration COMPLICATIONS: None SPECIMENS: None INDICATIONS FOR PROCEDURE: The patient is an 89-year-old lady with history of diminished visual acuity in her right eye secondary to the development of nuclear/cortical cataract. She is significantly symptomatic that she desires cataract surgery in attempt to improve and maximize her vision. The option of cataract surgery was offered to the patient and she wished to proceed. See office notes for detailed information. PROCEDURE: The correct surgical eye was identified and marked as the right eye and the pupil was dilated in the preoperative area using mydriatics and cycloplegics. The dilated pupil size was 6.0 mm. The patient elected to proceed without oral sedation. The patient was brought to the operating room where cardiopulmonary monitoring was instituted and surgical time-out was performed, confirming the correct operative eye and IOL power. Topical anesthesia was administered and ophthalmic povidone-iodine 5% was instilled into the conjunctival fornices. The modesto-ocular area was prepped with Betadine 10% solution and draped in the usual sterile fashion for intraocular surgery, including an aperture drape. A Tegaderm transparent film dressing was cut in half and used to cover the lashes and lid margins. Care was taken to sequester the lashes and lid margins under the Tegaderm dressing. A lid speculum was placed between the lids of the operative eye and the Eddie LuxOR Revalia operating microscope was maneuvered into position. Sohail scissors were then used to make a conjunctival buttonhole approximately 6mm posterior to the limbus in the inferonasal quadrant. Blunt dissection was carried out to expose bare sclera, and a blunt-tipped sub-tenon?s anesthesia cannula was introduced and passed posteriorly along the globe where non- preserved plain lidocaine was injected into posterior sub-Tenon?s space. A sideport knife was used to make a paracentesis port. Intraocular phenylephrine/lidocaine was injected into the anterior chamber. The anterior chamber was then filled with viscoelastic. A keratome knife was used to construct a two--plane clear corneal tunnel extending 2.0mm into clear cornea. A flap was raised on the anterior capsule and capsulorhexis forceps were used to complete a continuous curvilinear capsulorhexis of 5.0 mm. Balanced salt solution was then used to perform cortical cleaving hydrodissection and nuclear hydrodelineation until the lens could be freely rotated within the capsular bag. The lens nucleus was then disassembled and removed within the capsular bag and iris plane using phacoemulsification. Residual cortical material was removed using the I/A handpiece. The posterior capsule was carefully polished to remove as much residual lens epithelial cells as safely possible. The capsular bag was then inflated and the anterior chamber deepened with cohesive viscoelastic. The lens implant described above was inserted into the capsular bag using the Eddie Autonome Injector. A Kuglen hook was used to dial the IOL into position. Residual viscoelastic was then removed first from posterior to the IOL, then from the anterior chamber using the I/A handpiece. The lens implant was noted to center nicely within the capsular bag. The incisions were stromally hydrated, and the anterior chamber was reformed using BSS. Then 0.5cc of moxifloxacin 1.0mg/ml were injected into the capsular bag and anterior chamber. The incisions were checked with a Weck spear and found to be secure. Several drops of ophthalmic povidone-iodine 5% were then applied to the eye followed by two drops of combination steroid/NSAID/antibiotic solution. The drapes were removed and a clear plastic protective eye shield was placed over the eye. The patient was then returned to Same Day Surgery in stable condition. Date of Procedure: 06/25/24
--- NOTE | 2024-06-25 07:58 | W.PM.DSUDISC ---
Date of service: 06/25/24 Discharge Plan Disposition Patient Disposition: Home Discharge Details Attending Provider: Tremayne Lowry Primary Care Provider: Jason Huff Home Meds and New Rx's Prescriptions: No Action PreserVision AREDS 4,296 mcg-226 mg-90 mg capsule 1 cap PO BID polyethylene glycol 3350 [Miralax] 17 gram/dose powder 17 g PO DAILY (DME) Aerochamber MV Spacer See Rx Instructions .Route Qty: 1 0RF Rx Instructions: As directed metoprolol tartrate 25 mg tablet 25 mg PO BID Qty: 180 3RF triamcinolone acetonide 0.1 % cream 1 applic topical BID Qty: 30 0RF Rx Instructions: apply to urticaria prn cranberry fruit 400 mg tablet 850 mg PO DAILY Patient Comments: 04/15/24- per pt report Rx Instructions: administer with a meal estradiol 0.01 % (0.1 mg/gram) cream 1 g vaginal DAILY Qty: 42.5 2RF Patient Comments: takes mon, wed and fri Rx Instructions: local application daily for one week and then 3 times per week famotidine 20 mg tablet 20 mg PO QHS Qty: 90 3RF simvastatin 5 mg tablet 5 mg PO DAILY Qty: 90 3RF ondansetron HCl 4 mg tablet 4 mg PO Q8H PRN (Reason: nausea and vomiting) Qty: 14 0RF Rx Instructions: Take 15-20 min prior to antibiotics albuterol sulfate 90 mcg/actuation HFA aerosol inhaler 1 - 2 inh IH Q6H PRN (Reason: shortness of breath or wheezing) Qty: 8.5 6RF Thermotabs 287-180-15 mg tablet 1 tab PO QID Blink Tears 0.25 % drops 1 drp ophthalmic (eye) DAILY aspirin 81 mg Tablet,Delayed Release (Dr/Ec) 81 mg PO DAILY Qty: 0 0RF ondansetron 4 mg tablet,disintegrating 4 mg PO Q8H PRNQty: 7 0RF Discharge Instructions Stand Alone Forms: DSU Post-Op CataractSalome (DSU) Discharge Orders Discharge Orders: Discharge Order (Routine); Ordered 06/25/24 Ordered By: Tremayne Lowry DS: Diagnosis Discharge Diagnosis (1) Cortical age-related cataract, right eye: Status: Resolved (2) Nuclear age-related cataract, right eye: Status: Resolved
[2024-06-25 07:59] VITALS: BP 173/69; PULSE 59; RESP 16; TEMP 36.3; O2SAT 98
--- NOTE | 2024-06-25 08:17 | W.ANESPOSTOP ---
Postoperative Evaluation Date, Time and Location Date Performed: 06/25/24 Time Performed: 08:05 Patient Location: Day Surgery Unit Vital Signs Most Recent Imported Vital Signs: Most Recent Vital Signs Temp Pulse Resp BP Pulse Ox 36.3 C L 59 L 16 173/69 H 98 06/25/24 07:59 06/25/24 07:59 06/25/24 07:59 06/25/24 07:59 06/25/24 07:59 Pain Score Most Recent Pain Score: Most Recent Pain Score Pain Level 0 06/25/24 07:59 Assessment Mental Status: Awake (Alert & Oriented to Patient Baseline) Airway and Respiratory Function: Patent airway with normal (patient baseline) respiratory exam Cardiovascular Function: Hemodynamically Stable Hydration Status: Adequately Hydrated Nausea & Vomiting: No Nausea or Vomiting Pain: Pt. Denies Any Pain Peripheral Nerve Block: Patient did not receive a nerve block
== END 2024-06-25 08:36 | disposition home or self-care (01) ==
LOC: SUR 06:01
PROVIDERS: PCP Nurse Practitioner Family; Visit Provider Ophthalmology
PROC: (CPT 66984; principal; 2024-06-25 07:30)
DX: H25.11 Age-related nuclear cataract, right eye (principal); H25.011 Cortical age-related cataract, right eye
CPT/HCPCS: 66984; 00123; V2632; J2003

== ENCOUNTER 2024-06-28 17:55 | Outpatient (REF) | payer MEDICARE, SELFPAY ==
[2024-06-28 21:30] LABS: BUN 16 mg/dL (7-18); CREATININE 0.9 mg/dL (0.55-1.02); Calcium 9.2 mg/dL (8.5-10.1); Chloride 96 mmol/L (98-107); Estimated GFR 61.87 (mL/min/1.73m2); Glucose 121 mg/dL (74-106); Potassium 4.6 mmol/L (3.5-5.1); Sodium 132 mmol/L (136-145)
== END 2024-06-28 17:56 | disposition home or self-care (01) ==
LOC: LBN 17:55
PROVIDERS: PCP Nurse Practitioner Family; Visit Provider Nurse Practitioner Family
DX: E22.2 Syndrome of inappropriate secretion of antidiuretic hormone (principal)
CPT/HCPCS: 80048

== ENCOUNTER 2024-07-09 06:00 | Day surgery (SDC) | payer MEDICARE, SELFPAY ==
[2024-07-09 06:34] VITALS: BP 147/65; PULSE 69; RESP 16; TEMP 36.4; O2SAT 98
[2024-07-09] MEDS: Tropicam./Phenyleph. (1/2.5%) 5 ML BTL ×3 (06:40→06:53)
--- NOTE | 2024-07-09 07:27 | ANES.PREOP_ITS ---
General Info Date of Service Date Performed: 07/09/24 Height: 5 ft Weight: 50.8 kg Body Mass Index (BMI): 21.9 Surgical Procedure: Operation Date: 07/09/24 07:40 Proposed Procedure Side Surgeon p Cataract Extraction with IOL Implant Left Tremayne Lowry MD Meds Allergies and Home Medications Allergies Allergy/AdvReac Type Severity Reaction Status Date / Time ciprofloxacin (From Cipro) Allergy Intermediate Lips and Verified 07/09/24 06:42 face burn, feels shaky, arm tingly codeine AdvReac Intermediate Dizziness/L Verified 07/09/24 06:42 ightheade lovastatin AdvReac Intermediate myalgias Verified 07/09/24 06:42 oxycodone AdvReac Intermediate NAUSEA, GI Verified 07/09/24 06:42 UPSET azithromycin AdvReac cramping, Verified 07/09/24 06:42 anorexia doxycycline AdvReac Nausea, Verified 07/09/24 06:42 Vomiting hydrocodone AdvReac unknown Verified 07/09/24 06:42 Home Medication ?Medication ?Instructions ?Recorded polyethylene glycol 400 0.25 % eye 1 drp ophthalmic (eye) DAILY 03/10/23 drops (Blink Tears) macular degeneration inhalational spacing device #1 ea 05/21/23 (Aerochamber MV spacer) polyethylene glycol 3350 17 17 g PO DAILY 06/05/23 gram/dose oral powder (Miralax) vitamins A,C,K-xpge-qeyghc 4,296 1 cap PO BID 09/29/23 mcg-226 mg-90 mg capsule (PreserVision AREDS) estradiol 0.01% (0.1 mg/gram) 1 g vaginal DAILY #42.5 grams 12/02/23 vaginal cream famotidine 20 mg tablet 20 mg PO QHS #90 tabs 01/13/24 aspirin 81 mg tablet,delayed 81 mg PO DAILY #0 tabs 01/16/24 release cranberry fruit 400 mg tablet 850 mg PO DAILY 04/15/24 simvastatin 5 mg tablet 5 mg PO DAILY #90 tabs 04/27/24 metoprolol tartrate 25 mg tablet 25 mg PO BID #180 tab-caps 04/30/24 triamcinolone acetonide 0.1 % 1 applic topical BID #30 grams 04/30/24 topical cream ondansetron HCl 4 mg tablet 4 mg PO Q8H PRN nausea and 05/10/24 vomiting #14 tabs albuterol sulfate 90 mcg/actuation 1 - 2 inh inhalation Q6H PRN 05/17/24 aerosol inhaler shortness of breath or wheezing #8.5 grams ondansetron 4 mg disintegrating 4 mg PO Q8H PRN #7 tabs 05/23/24 tablet sodium chloride-potassium chloride See Rx Instructions PO QID 06/29/24 287 mg-180 mg-15 mg tablet (Thermotabs) Current Visit Medications: Current Medications Generic Name Dose Route Start Last Admin Trade Name Freq PRN Reason Stop Dose Admin Miscellaneous Medication 5 ml 07/09/24 07:00 Tropicam./Phenyleph. (1/2.5%) 5 Ml Btl OP 08/08/24 06:59 DIRECTED [facility] Miscellaneous Medication 5.6 ml 07/09/24 07:00 Prednisolone 1%, Moxifloxacin 0.5%, Bromfenac 0.09% 5.6ml Btl OP 08/08/24 06:59 DIRECTED KATH Tetracaine HCl 4 ml 07/09/24 07:00 Tetracaine 0.5% 4 Ml Btl OP 08/08/24 06:59 DIRECTED [facility] PFSH Active Problems Active Problems: Problem Status Onset Code Cortical age-related cataract, left eye Acute H25.012 Nuclear age-related cataract, left eye Acute H25.12 Cortical age-related cataract, right eye Resolved H25.011 Nuclear age-related cataract, right eye Resolved H25.11 Pancreatitis Chronic K85.90 Bacterial vaginosis Acute N76.0, B96.89 HTN (hypertension) Chronic I10 COPD exacerbation Acute J44.1 New daily persistent headache Acute G44.52 Frailty syndrome in geriatric patient Chronic R54 Palliative care patient Chronic Z51.5 Urinary incontinence Chronic R32 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 Generalized weakness Chronic R53.1 Constipation Chronic K59.00 LUQ abdominal pain Chronic R10.12 Serrated adenoma of colon Chronic ~07/18/22 D12.6 Neck pain on right side Chronic M54.2 Dermatitis Chronic L30.9 Anemia Chronic D64.9 Pulmonary nodules Chronic R91.8 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 Elevated urine sodium with episode of hyponatremia evaluated at [facility] 2019 GERD with esophagitis Erosive gastritis Pancreatitis Macular degeneration Hx of fracture of pelvis pt. 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 intestinal meta. or dysplasia Essential hypertension (01/14/13) Depressive disorder Atrophic vaginitis (08/19/11) Pt. states she is unsure Family history of GI malignancy Surgical History Surgical History H/O sigmoidoscopy (~07/18/22) KNEE SURGERY (~05/2012) Abdominal hysterectomy EGD - MAC (04/22/17) Colonoscopy - MAC (04/22/17) Colonoscopy - MAC (~02/2012) Cholecystectomy Bladder Surgery Bilateral salpingectomy with oophorectomy Arthroplasty of knee (05/27/12) LEFT - Pt denies knee replacement Tobacco Smoking/Tobacco Use Status: Former Tobacco Use Passive smoking exposure: Yes Second hand exposure: Yes Alcohol Alcohol Intake: never Substance Use Substance use: Never Substance use type: does not use Vital Signs and Lab Results Vital Signs Most Recent Vital Signs in EMR: Most Recent Vital Signs Temp Pulse Resp BP Pulse Ox 36.4 C L 69 16 147/65 H 98 07/09/24 06:34 04/25/25 06:34 07/09/24 06:34 07/09/24 06:34 07/09/24 06:34 Lab Results Blood Type / Crossmatch: No Data to Display Complete Blood Count: White Blood Count 6.12 10^3/uL (4.4-10.8) 06/10/24 11:35 Red Blood Count 3.98 10^6/uL (3.93-5.22) 06/10/24 11:35 Hemoglobin 12.2 g/dL (11.2-15.7) 06/10/24 11:35 Hematocrit 36.4 % (36.0-46.0) 06/10/24 11:35 Platelet Count 191 10^3/uL (130-400) 06/10/24 11:35 Complete Metabolic Panel: Sodium 132 mmol/L (136-145) L 06/28/24 14:00 Potassium 4.6 mmol/L (3.5-5.1) 06/28/24 14:00 Chloride 96 mmol/L (98-107) L 06/28/24 14:00 Carbon Dioxide 31.0 mmol/L (21.0-32.0) 06/28/24 14:00 BUN 16 mg/dL (7-18) 06/28/24 14:00 Creatinine 0.9 mg/dL (0.55-1.02) 06/28/24 14:00 Est GFR (CKD-EPI 2020) 61.87 (mL/min/1.73m2) 06/28/24 14:00 Calcium 9.2 mg/dL (8.5-10.1) 06/28/24 14:00 Albumin 3.6 g/dL (3.4-5.0) 06/10/24 11:35 Glucose 121 mg/dL (74-106) H 06/28/24 14:00 Liver Function Panel: Alanine Aminotransferase (ALT/SGPT) 32 U/L (14-59) 06/10/24 11: 35 Aspartate Amino Transf (AST/SGOT) 23 U/L (15-37) 06/10/24 11:35 Coagulation Panel: No Data to Display Cardiac Panel: No Data to Display Arterial Blood Gas: No Data to Display Venous Blood Gas: No Data to Display Pancreas Panel: Amylase Level 77 U/L (25-115) 06/10/24 11:35 Lipase 92 U/L (<78) H 06/10/24 11:35 Thyroid Panel: No Data to Display Infectious Disease: No Data to Display Blood Cultures: No Data to Display Toxicology Panel: No Data to Display Imaging and Studies Imaging and Studies Study information below may be from another EMR and interpreted by another provider. Please see original notes in EMR for more complete details. EKG Summary: 01/05 Conclusion Sinus rhythm...normal P axis, V-rate 60- 99 Left atrial enlargement...P, P'>60mS, <-0.15mV V1 Anesthesia Assessment and Plan Anesthesia History Personal History: No History of Anesthesia Complications Family History: No Family History of Anesthesia Complications Exercise Tolerance Exercise Tolerance: Metabolic Equivalents<4 Pertinent Negatives Pertinent Negatives: No Major Cardiovascular Symptoms or Complaints and No Major Pulmonary Symptoms or Complaints Cardiac & Pulmonary Exam Cardiac Exam: Normal S1/S2 Heart Sounds Pulmonary Exam: Clear Bilateral Breath Sounds Implantable Cardiac Device Does patient have a Pacemaker or an ICD?: No Airway Exam Known Difficult Airway: No Mallampati Class: 3 Mouth Opening: Normal (> 3cm) Thyromental Distance: Greater than 3 cm Neck Range of Motion: Full ROM Neck Circumference: Normal Teeth Condition: Normal Dentition and Removable Dentures/Plates Upper ASA Classification ASA Score: ASA 3 Emergency Case?: No NPO Status NPO Status: NPO Clears >2 hours, Solids >8 hours Anesthesia Plan Resuscitation Status: Full Code Anesthesia Technique: MAC Anesthesia Airway Planned: Natural Airway Monitors Used: Standard Monitors
[2024-07-09 07:29] VITALS: BMI 21.9
[2024-07-09] MEDS: Tetracaine 0.5% 4 ML BTL (07:39)
[2024-07-09] MEDS: Povidone-Iodine Ophth 30 ML BTL (07:39)
[2024-07-09] MEDS: Lidocaine 1% Pres-Free 5 ML VIAL (07:48)
[2024-07-09] MEDS: Phenylephrine/Lidocaine (15/10) MG/ML 1 ML VIAL (07:48)
[2024-07-09] MEDS: Balanced Salt Soln.-PLUS 500 ML BAG OP (07:48)
[2024-07-09] MEDS: Duovisc Viscoelastic System EACH 1 EACH (07:50)
[2024-07-09] MEDS: Moxifloxacin-PF 1 MG/ML VIAL (07:55)
[2024-07-09] MEDS: Prednisolone 1%, Moxifloxacin 0.5%, Bromfenac 0.09% 5.6ML BTL 5.6 ML (07:55)
[2024-07-09 08:19] VITALS: BP 159/59; PULSE 60; RESP 16; TEMP 36; O2SAT 100
--- NOTE | 2024-07-09 08:19 | W.PM.DSUDISC ---
Date of service: 07/09/24 Discharge Plan Disposition Patient Disposition: Home Discharge Details Attending Provider: Tremayne Lowry Primary Care Provider: Jason Huff Home Meds and New Rx's Prescriptions: No Action PreserVision AREDS 4,296 mcg-226 mg-90 mg capsule 1 cap PO BID polyethylene glycol 3350 [Miralax] 17 gram/dose powder 17 g PO DAILY (DME) Aerochamber MV Spacer See Rx Instructions .Route Qty: 1 0RF Rx Instructions: As directed metoprolol tartrate 25 mg tablet 25 mg PO BID Qty: 180 3RF triamcinolone acetonide 0.1 % cream 1 applic topical BID Qty: 30 0RF Rx Instructions: apply to urticaria prn cranberry fruit 400 mg tablet 850 mg PO DAILY Patient Comments: 04/15/24- per pt report Rx Instructions: administer with a meal estradiol 0.01 % (0.1 mg/gram) cream 1 g vaginal DAILY Qty: 42.5 2RF Patient Comments: takes mon, wed and fri Rx Instructions: local application daily for one week and then 3 times per week famotidine 20 mg tablet 20 mg PO QHS Qty: 90 3RF simvastatin 5 mg tablet 5 mg PO DAILY Qty: 90 3RF ondansetron HCl 4 mg tablet 4 mg PO Q8H PRN (Reason: nausea and vomiting) Qty: 14 0RF Rx Instructions: Take 15-20 min prior to antibiotics albuterol sulfate 90 mcg/actuation HFA aerosol inhaler 1 - 2 inh IH Q6H PRN (Reason: shortness of breath or wheezing) Qty: 8.5 6RF Thermotabs 287-180-15 mg tablet See Rx Instructions PO QID Rx Instructions: 2 tabs QAM, 3 tabs QPM Blink Tears 0.25 % drops 1 drp ophthalmic (eye) DAILY aspirin 81 mg Tablet,Delayed Release (Dr/Ec) 81 mg PO DAILY Qty: 0 0RF ondansetron 4 mg tablet,disintegrating 4 mg PO Q8H PRNQty: 7 0RF Discharge Instructions Stand Alone Forms: DSU Post-Op Cataract, Press Ganey (DSU) Discharge Orders Discharge Orders: Discharge Order (Routine); Ordered 07/09/24 Ordered By: Tremayne Lowry DS: Diagnosis Discharge Diagnosis (1) Cortical age-related cataract, left eye: Status: Resolved (2) Nuclear age-related cataract, left eye: Status: Resolved
--- NOTE | 2024-07-09 08:20 | W.PM.OP ---
Operative Note Operative Note PRE-OP DIAGNOSIS: Nuclear/cortical cataract, left eye POST-OP DIAGNOSIS: same PROCEDURE: Cataract extraction using phacoemulsification with intraocular lens implant, left eye SURGEON: Tremayne Lowry ANESTHESIA TYPE: Local By Surgeon and MAC Refer to Anesthesia Record PATHOLOGY: none sent COMPLICATIONS: None Patient was transported to: same day Patient's condition: stable Implants: Eddie Clareon [id number] Indications: Progressive decreased vision due to cataract, left eye Procedure Description: CATARACT SURGERY OPERATIVE REPORT PREOPERATIVE DIAGNOSIS: Nuclear/cortical cataract, left eye POSTOPERATIVE DIAGNOSIS: Same OPERATION: Cataract extraction using phacoemulsification with posterior chamber intraocular lens implant, left eye. IOL: IOL Traveling Nurse/Model: Eddie Clareon [id number] IOL Power: + 22.0 diopters IOL Serial Number: [id number] Optic Diameter: 6.0mm Haptic/Overall Diameter: 13.0mm PHACO INFO: Eddie Centurion Vision System with OZil and Active Fluidics Cumulative Dispersed Energy (CDE): 8.86 seconds SURGEON: Tremayne Lowry MD, GURDEEP ANESTHESIA: Monitored Anesthesia Care (MAC), with local sub-tenon's anesthetic infiltration COMPLICATIONS: None SPECIMENS: None INDICATIONS FOR PROCEDURE: The patient is a 89-year-old lady with history of diminished visual acuity in her left eye secondary to the development of nuclear/cortical cataract. She is previously undergone cataract surgery in the right eye, although postoperative visual acuity is limited by the presence of pre-existing intermediate stage macular degeneration and an epiretinal membrane. She now presents for cataract surgery in the left eye, understanding that postoperative visual acuity will be limited by the presence of her pre-existing maculopathy. See office notes for detailed information. PROCEDURE: The correct surgical eye was identified and marked as the left eye and the pupil was dilated in the preoperative area using mydriatics and cycloplegics. The dilated pupil size was 7.0 mm. The patient elected to proceed without oral sedation. The patient was brought to the operating room where cardiopulmonary monitoring was instituted and surgical time-out was performed, confirming the correct operative eye and IOL power. Topical anesthesia was administered and ophthalmic povidone-iodine 5% was instilled into the conjunctival fornices. The modesto-ocular area was prepped with Betadine 10% solution and draped in the usual sterile fashion for intraocular surgery, including an aperture drape. A Tegaderm transparent film dressing was cut in half and used to cover the lashes and lid margins. Care was taken to sequester the lashes and lid margins under the Tegaderm dressing. A lid speculum was placed between the lids of the operative eye and the Eddie LuxOR Revalia operating microscope was maneuvered into position. Sohail scissors were then used to make a conjunctival buttonhole approximately 6mm posterior to the limbus in the inferonasal quadrant. Blunt dissection was carried out to expose bare sclera, and a blunt-tipped sub-tenon?s anesthesia cannula was introduced and passed posteriorly along the globe where non-preserved plain lidocaine was injected into posterior sub-Tenon?s space. A sideport knife was used to make a paracentesis port. Intraocular phenylephrine/lidocaine was injected into the anterior chamber. The anterior chamber was then filled with viscoelastic. A keratome knife was used construct a two-plane clear corneal tunnel extending 2.0mm into clear cornea. A flap was raised on the anterior capsule and capsulorhexis forceps were used to complete a continuous curvilinear capsulorhexis of 5.0 mm. Mild diffuse annular laxity was noted. Balanced salt solution was then used to perform cortical cleaving hydrodissection and nuclear hydrodelineation until the lens could be freely rotated within the capsular bag. The lens nucleus was then disassembled and removed within the capsular bag and iris plane using phacoemulsification. The anterior chamber was noted to be quite deep. Residual cortical material was removed using the irrigation/aspiration handpiece. The posterior capsule was carefully polished to remove as much residual lens epithelial cells as safely possible. The capsular bag was then inflated and the anterior chamber deepened with viscoelastic. The lens implant described above was inserted into the capsular bag using the Eddie Autonome Injector. A Kuglen hook was used to dial the IOL into position. Residual viscoelastic was then removed first from posterior to the IOL, then from the anterior chamber using the I/A handpiece. The lens implant was noted to center nicely within the capsular bag. The incisions were stromally hydrated, and the anterior chamber was reformed using BSS. Then 0.5cc of moxifloxacin 1.0mg/ml were injected into the capsular bag and anterior chamber. The incisions were checked with a Weck spear and found to be secure. Several drops of ophthalmic povidone-iodine 5% were then applied to the eye followed by two drops of combination steroid/NSAID/antibiotic solution. The drapes were removed and a clear plastic protective eye shield was placed over the eye. The patient was then returned to Same Day Surgery in stable condition. Date of Procedure: 07/09/24
--- NOTE | 2024-07-09 09:38 | W.ANESPOSTOP ---
Postoperative Evaluation Date, Time and Location Date Performed: 07/09/24 Time Performed: 08:19 Patient Location: Day Surgery Unit Vital Signs Most Recent Imported Vital Signs: Most Recent Vital Signs Temp Pulse Resp BP Pulse Ox 36 C L 60 16 159/59 H 100 07/09/24 08:19 07/09/24 08:19 07/09/24 08:19 07/09/24 08:19 07/09/24 08:19 Pain Score Most Recent Pain Score: Most Recent Pain Score Pain Level 0 07/09/24 08:19 Assessment Mental Status: Awake (Alert & Oriented to Patient Baseline) Airway and Respiratory Function: Patent airway with normal (patient baseline) respiratory exam Cardiovascular Function: Hemodynamically Stable Hydration Status: Adequately Hydrated Nausea & Vomiting: No Nausea or Vomiting Pain: Pt. Denies Any Pain Peripheral Nerve Block: Patient did not receive a nerve block
== END 2024-07-09 08:48 | disposition home or self-care (01) ==
LOC: SUR 06:01
PROVIDERS: PCP Nurse Practitioner Family; Visit Provider Ophthalmology
PROC: (CPT 66984; principal; 2024-07-09 07:30)
DX: H25.012 Cortical age-related cataract, left eye (principal); H25.12 Age-related nuclear cataract, left eye; Z98.41 Cataract extraction status, right eye
CPT/HCPCS: 66984; 00123; V2632; J2003

== ENCOUNTER 2024-07-12 00:41 | Outpatient (CLI) | payer MEDICARE, SELFPAY ==
[2024-07-12 12:33] LABS: Anion Gap 4.7 mmol/L (3-11); BUN 16 mg/dL (7-18); CO2 33.3 mmol/L (21.0-32.0); CREATININE 0.8 mg/dL (0.55-1.02); Chloride 97 mmol/L (98-107); Estimated GFR 71.27 (mL/min/1.73m2); Glucose 93 mg/dL (74-106); Potassium 4.6 mmol/L (3.5-5.1); Sodium 135 mmol/L (136-145)
== END 2024-07-12 00:42 | disposition home or self-care (01) ==
LOC: LOS 00:41
PROVIDERS: PCP Nurse Practitioner Family; Visit Provider Nurse Practitioner Family
DX: E87.1 Hypo-osmolality and hyponatremia (principal)
CPT/HCPCS: 36415; 80048

== ENCOUNTER 2024-07-21 19:57 | Outpatient (REF) | payer MEDICARE, SELFPAY ==
[2024-07-21 20:54] LABS: Anion Gap 3.1 mmol/L (3-11); BUN 20 mg/dL (7-18); CO2 31.9 mmol/L (21.0-32.0); CREATININE 0.8 mg/dL (0.55-1.02); Calcium 8.9 mg/dL (8.5-10.1); Chloride 98 mmol/L (98-107); Estimated GFR 71.27 (mL/min/1.73m2); Glucose 92 mg/dL (74-106); Potassium 4.9 mmol/L (3.5-5.1); Sodium 133 mmol/L (136-145)
== END 2024-07-21 19:58 | disposition home or self-care (01) ==
LOC: LBN 19:57
PROVIDERS: PCP Nurse Practitioner Family; Visit Provider Nurse Practitioner Family
DX: E22.2 Syndrome of inappropriate secretion of antidiuretic hormone (principal)
CPT/HCPCS: 80048

== ENCOUNTER 2024-09-10 18:18 | Inpatient (IN) | payer MEDICARE, SELFPAY ==
[2024-09-10] VITALS (32 sets, daily range): BP systolic 115–207; BP diastolic 62–73; PULSE 52–94; RESP 12–19; TEMP 36–36.3; O2SAT 89–99
--- NOTE | 2024-09-10 18:45 | DI.RAD_ITS ---
Exam(s) XR CHEST 1V IN DI DEPT EXAM: XR CHEST 1V IN DI DEPT CLINICAL HISTORY: near syncope TECHNIQUE: 2D digital imaging was performed. COMPARISON: CR,XR XR CHEST 2V PA LATERAL from 05/23/2024 FINDINGS: LUNGS: Chronic scarring and interstitial changes. No focal infiltrate or pulmonary edema. No pleural abnormality seen. HEART: Mildly enlarged. AORTA: Normal diameter. BONES: Degenerative changes. Soft tissues: Unremarkable. IMPRESSION: No acute findings. DATA REPOSITORY: RADIATION DOSE DELIVERED:
--- NOTE | 2024-09-10 18:45 | RT.EKG_ITS ---
APPROVED REPORT Exam: Resting ECG Reason for Exam: baseline/screening Patient Location: E HR:60 bpm ECG Measurements Heart Rate 60 AXIS PA 178 P 44 QRSd 81 QRS 69 QT 428 T 55 QTc 427 Conclusion Sinus rhythm 60 normal axis no stemi
--- NOTE | 2024-09-10 18:55 | DI.CT_ITS ---
Exam(s) CT BRAIN NECK CTA EXAM: CT BRAIN NECK CTA CLINICAL HISTORY: confusion, transient L arm numbness. TECHNIQUE: Imaging Protocol: Axial CT angiography was performed with multi- slice acquisition and multi-planar and MIP reconstructions. CONTRAST MATERIAL: Intravenous: Omnipaque 350 Contrast volume:70 ml COMPARISON: CT CT BRAIN NECK CTA from 01/15/[address] BRAIN NECK CTA from 05/30/2024 CR,XR XR CHEST 1V IN DI DEPT from 09/10/2024 FINDINGS: CT Head W/O and W contrast: Ventricles and Extra axial spaces: Normal in size and morphology for the patient's age. Hemorrhage: None. Cerebral parenchyma: No evidence of acute infarct or mass. Atrophy consistent with the patient's age. White matter changes small vessel disease. Midline shift: None. Brainstem/Cerebellum: No acute findings.. Calvarium: Normal. Visualized Paranasal sinuses/Mastoids: Mild mucosal thickening in the sinuses. Soft Tissues: Unremarkable. Enhancement: Normal. Venous sinuses are patent. CTA Brain W: Internal Carotid Arteries: Mild calcification. Right: No aneurysm, occlusion or significant stenosis. Left: No aneurysm, occlusion or significant stenosis. Middle Cerebral Arteries: Right: No aneurysm, occlusion or significant stenosis. Left: No aneurysm, occlusion or significant stenosis. Anterior Cerebral Arteries: Right: No aneurysm, occlusion or significant stenosis. Left: No aneurysm, occlusion or significant stenosis. Posterior cerebral Arteries: Right: No aneurysm, occlusion or significant stenosis. Left: No aneurysm, occlusion or significant stenosis. Vertebral Arteries: Right: No aneurysm, occlusion or significant stenosis. Left: No aneurysm, occlusion or significant stenosis. Basilar Artery: No aneurysm, occlusion or significant stenosis. CTA Neck W: Common Carotid: Mild scattered calcific plaque. Right: No dissection, occlusion or significant stenosis. Left: No dissection, occlusion or significant stenosis. External Carotid: Right: No dissection, occlusion or significant stenosis. Left: No dissection, occlusion or significant stenosis. Internal Carotid: Right: Proximal calcification . No dissection, occlusion or significant stenosis. Left: No dissection, occlusion or significant stenosis. Vertebral Artery: Right: No dissection, occlusion or significant stenosis. Left: No dissection, occlusion or significant stenosis. Lung Apices: No acute findings. Areas of scarring, greater in the left upper lobe Bones: No acute abnormality. Degenerative changes of the cervical spine, greatest at C1-2 and skull base.. Soft Tissues: Normal. IMPRESSION: 1. CTA brain: Normal CTA examination of the [place]. 2. Head CT: No acute abnormality. 3. CTA neck: Mild calcific plaque at the proximal internal carotid arteries. No evidence of occlusion, significant stenosis or dissection. The preliminary [facility] report was reviewed. RADIATION DOSE DELIVERED: Total DLP DATA REPOSITORY: All CT scans at this facility are submitted to the National Radiology Data Registry (NRDR) Dose Index Registry (DIR) with the [employer] (A[employer]). RADIATION OPTIMIZATION: All CT scans at this facility use at least one of these dose optimization techniques: automated exposure control; mA and/or kV adjustment per patient size (includes targeted exams where dose is matched to clinical indication); or iterative reconstruction.
[2024-09-10 19:03] LABS: Lactate 0.8 mmol/L (<or=2.0)
[2024-09-10 19:04] LABS: Abs Immature Grans 0.01 10^3/uL (0.0-0.06); Absolute Basophil Count 0.02 10^3/uL (0.0-0.2); Absolute Eosinophil Count 0.11 10^3/uL (0.0-0.7); Absolute Lymphocyte Count 1.36 10^3/uL (1.2-3.4); Absolute Monocyte Count 0.62 10^3/uL (0.1-0.8); Absolute Neutrophil Count 3.58 10^3/uL (1.2-6.7); Basophils % 0.4 %; Eosinophils % 1.9 %; HCT 37.8 % (36.0-46.0); HGB 12.5 g/dL (11.2-15.7); Immature Grans % 0.2 %; Lymphocytes % 23.9 %; MCH 29.8 pg (27.0-33.0); MCHC 33.1 % (32.0-36.0); MCV 90 fL (80-95); MPV 10.6 fL (8.0-11.0); Monocytes % 10.9 %; Neutrophils % 62.7 %; Platelet Count 159 10^3/uL (130-400); RBC 4.19 10^6/uL (3.93-5.22); RDW 12.8 % (11.7-14.6); RDW-SD 42.1 fL
[2024-09-10] MEDS: Omnipaque 350 MG/ML 100 ML BTL 70 ML IJ (19:24)
[2024-09-10] MEDS: Normal Saline - Diluent 50 ML VIAL IJ (19:25)
[2024-09-10 19:30] LABS: ALT 37 U/L (14-59); AST 33 U/L (15-37); Alkaline Phosphatase 109 U/L (46-116); Anion Gap 3.9 mmol/L (3-11); BUN 16 mg/dL (7-18); Bilirubin, Total 0.5 mg/dL (0.2-1.0); CO2 34.1 mmol/L (21.0-32.0); CREATININE 0.6 mg/dL (0.55-1.02); Calcium 9.1 mg/dL (8.5-10.1); Chloride 96 mmol/L (98-107); Estimated GFR 86.82 (mL/min/1.73m2); Glucose 102 mg/dL (74-106); Magnesium 1.9 mg/dL (1.8-2.4); Potassium 4.7 mmol/L (3.5-5.1); Sodium 134 mmol/L (136-145); TSH (W/Ref FT4) 2.62 uIU/mL (0.36-3.74); Total Protein 7.2 g/dL (6.4-8.2); Troponin I 5 ng/L (<or=51)
[2024-09-10 19:43] LABS: Bilirubin Negative (Negative); Blood Negative (Negative); Clarity Clear (Clear); Glucose Negative (Negative); Ketones Negative (Negative); Leukocyte Esterase Trace (Negative); Nitrite Positive (Negative); Urobilinogen 0.2 mg/dL (Up to 0.2)
[2024-09-10 19:52] LABS: Bacteria Many HPF (Negative); Epithelial Cells Rare HPF (Negative); RBC Negative HPF (0-2)
[2024-09-10 19:53] LABS: C & S Indicated? Yes; Casts Negative LPF (Negative); Crystals Negative HPF (Negative); Mucus Negative (Negative)
--- NOTE | 2024-09-10 20:04 | W.ED.GENAD ---
Discharge Plan Disposition Patient Disposition: Admit to [facility] Condition: Stable Discharge Details Clinical Impression: Transient ischemic attack Primary Care Provider: Jason Huff ED Provider: Tom Lyman Home Meds and New Rx's Prescriptions: No Action PreserVision AREDS 4,296 mcg-226 mg-90 mg capsule 1 cap PO BID polyethylene glycol 3350 [Miralax] 17 gram/dose powder 17 g PO DAILY (DME) Aerochamber MV Spacer See Rx Instructions .Route Qty: 1 0RF Rx Instructions: As directed metoprolol tartrate 25 mg tablet 25 mg PO BID Qty: 180 3RF cranberry fruit 400 mg tablet 850 mg PO DAILY Patient Comments: 04/15/24- per pt report Rx Instructions: administer with a meal betamethasone dipropionate 0.05 % cream 1 applic topical BID PRN (Reason: skin irritation) Qty: 45 0RF estradiol 0.01 % (0.1 mg/gram) cream 1 g vaginal DAILY Qty: 42.5 2RF Patient Comments: takes mon, wed and fri Rx Instructions: local application daily for one week and then 3 times per week famotidine 20 mg tablet 20 mg PO QHS Qty: 90 3RF simvastatin 5 mg tablet 5 mg PO DAILY Qty: 90 3RF ondansetron HCl 4 mg tablet 4 mg PO Q8H PRN (Reason: nausea and vomiting) Qty: 14 0RF Rx Instructions: Take 15-20 min prior to antibiotics albuterol sulfate 90 mcg/actuation HFA aerosol inhaler 1 - 2 inh IH Q6H PRN (Reason: shortness of breath or wheezing) Qty: 8.5 6RF Thermotabs 287-180-15 mg tablet See Rx Instructions PO QID Rx Instructions: 2 tabs QAM, 3 tabs QPM Blink Tears 0.25 % drops 1 drp ophthalmic (eye) DAILY aspirin 81 mg Tablet,Delayed Release (Dr/Ec) 81 mg PO DAILY Qty: 0 0RF ondansetron 4 mg tablet,disintegrating 4 mg PO Q8H PRNQty: 7 0RF HPI General Date/Time Provider Initiated Documentation: 09/10/24 18:47. HPI Narrative: 89 year-old female presents to ED today by POV/ambulating with a chief complaint of coordination difficulty- dropping things, difficulty ambulating and following directs with onset possibly at 1600- patient had taken a drive with her son prior, he states they didn't talk during this and sometime after returning around 1730 he called to her to let her know her sister called- and noticed she couldn't hold her phone. Quality described as R hand coordination difficulties, speech problems, gait instability, no radiation to fever, cough, chest pain, shortness of breath, abdominal pain, nausea/vomiting. Severity is described as unable to quantify. Palliating factors include nothing specific attempted. Provoking factors include nothing specific. Events leading up to the incident/Associated Symptoms: Patients' son states she has sodium problems and has presented similar for them in the past. Patient not anticoagulated. Related Data Home Medications ?Medication ?Instructions ?Recorded ?Confirmed polyethylene glycol 400 0.25 % eye 1 drp ophthalmic (eye) DAILY 03/10/23 09/10/24 drops (Blink Tears) macular degeneration inhalational spacing device #1 ea 05/21/23 09/06/24 (Aerochamber MV spacer) polyethylene glycol 3350 17 17 g PO DAILY 06/05/23 09/10/24 gram/dose oral powder (Miralax) vitamins A,C,C-tgtt-ozmwbk 4,296 1 cap PO BID 09/29/23 09/10/24 mcg-226 mg-90 mg capsule (PreserVision AREDS) famotidine 20 mg tablet 20 mg PO QHS #90 tabs 01/13/24 09/10/24 aspirin 81 mg tablet,delayed 81 mg PO DAILY #0 tabs 01/16/24 09/10/24 release cranberry fruit 400 mg tablet 850 mg PO DAILY 04/15/24 09/10/24 simvastatin 5 mg tablet 5 mg PO DAILY #90 tabs 04/27/24 09/10/24 metoprolol tartrate 25 mg tablet 25 mg PO BID #180 tab-caps 04/30/24 09/10/24 ondansetron HCl 4 mg tablet 4 mg PO Q8H PRN nausea and 05/10/24 09/10/24 vomiting #14 tabs albuterol sulfate 90 mcg/actuation 1 - 2 inh inhalation Q6H PRN 05/17/24 09/10/24 aerosol inhaler shortness of breath or wheezing #8.5 grams ondansetron 4 mg disintegrating 4 mg PO Q8H PRN #7 tabs 05/23/24 09/10/24 tablet sodium chloride-potassium chloride See Rx Instructions PO QID 06/29/24 09/06/24 287 mg-180 mg-15 mg tablet (Thermotabs) betamethasone dipropionate 0.05 % 1 applic topical BID PRN skin 08/24/24 09/10/24 topical cream irritation #45 grams estradiol 0.01% (0.1 mg/gram) 1 g vaginal DAILY #42.5 grams 08/24/24 09/10/24 vaginal cream Previous Rx's ?Medication ?Instructions ?Recorded inhalational spacing device #1 ea 05/21/23 (Aerochamber MV spacer) famotidine 20 mg tablet 20 mg PO QHS #90 tabs 01/13/24 aspirin 81 mg tablet,delayed 81 mg PO DAILY #0 tabs 01/16/24 release simvastatin 5 mg tablet 5 mg PO DAILY #90 tabs 04/27/24 metoprolol tartrate 25 mg tablet 25 mg PO BID #180 tab-caps 04/30/24 ondansetron HCl 4 mg tablet 4 mg PO Q8H PRN nausea and 05/10/24 vomiting #14 tabs albuterol sulfate 90 mcg/actuation 1 - 2 inh inhalation Q6H PRN 05/17/24 aerosol inhaler shortness of breath or wheezing #8.5 grams ondansetron 4 mg disintegrating 4 mg PO Q8H PRN #7 tabs 05/23/24 tablet betamethasone dipropionate 0.05 % 1 applic topical BID PRN skin 08/24/24 topical cream irritation #45 grams estradiol 0.01% (0.1 mg/gram) 1 g vaginal DAILY #42.5 grams 08/24/24 vaginal cream Allergies Allergy/AdvReac Type Severity Reaction Status Date / Time ciprofloxacin (From Cipro) Allergy Intermediate Lips and Verified 09/10/24 18:49 face burn, feels shaky, arm tingly codeine AdvReac Intermediate Dizziness/L Verified 09/10/24 18:49 ightheade lovastatin AdvReac Intermediate myalgias Verified 09/10/24 18:49 oxycodone AdvReac Intermediate NAUSEA, GI Verified 09/10/24 18:49 UPSET azithromycin AdvReac cramping, Verified 09/10/24 18:49 anorexia doxycycline AdvReac Nausea, Verified 09/10/24 18:49 Vomiting hydrocodone AdvReac unknown Verified 09/10/24 18:49 General Stated Complaint: AMS/LOC MELINDA: 3 Review of Systems All systems reviewed & are unremarkable except as noted in HPI and below Exam Narrative Exam Narrative: GENERAL APPEARANCE: Frail, non-toxic, awake and alert, atraumatic, no acute distress. SKIN: Warm, pink, dry, intact, without rashes/lesions/ulcerations. HEAD: Normocephalic, atraumatic, normal hair distribution for gender/age. EYES: Normal conjunctiva, no exudates on lids/lashes, EOMs intact without nystagmus ENT: Nares patent, no circumoral cyanosis, no facial swelling NECK: Supple, trachea midline, painless cervical ROM. LUNGS/CHEST: Lungs CTA bilaterally- no rhonchi/rales/wheezes diffusely, non-labored respirations, normal A/P diameter, symmetrical expansion, no chest wall deformity HEART (CV/PV): Regular rate and rhythm without murmur, no peripheral edema, no JVD. ABDOMEN: Soft, non-distended, no guarding, no tenderness. MSK: Normal ROM, no swelling/deformity to bilateral UEs or LEs, moving all extremities without weakness, no cyanosis, spine midline without tenderness, normal curvature. NEURO: Mental Status AAOx4 - alert to person, place, time, events No facial droop, no forehead involvement, no dysmetria with cerebellar syndrome Motor: No focal weakness - strength 5/5 in bilateral UEs and LEs, proximal and distal, symmetric. Sensory: sensation intact to light touch globally. Gait unsteady- unsure of baseline, improved after CTA NIH: 0 PSYCH: euthymic, cooperative, pleasant, appropriate speech Course Vital Signs Vital signs: Vital Signs Temperature 36.3 C L 09/10/24 18:32 Pulse 94 H 09/10/24 18:32 Respiratory Rate 18 09/10/24 18:32 Blood Pressure 178/73 H 09/10/24 18:32 Pulse Oximetry 95 09/10/24 18:32 Temperature 36.3 C L 09/10/24 18:32 Temperature Source Oral 09/10/24 18:32 Pulse 56 L 09/10/24 19:20 Pulse 56 L 09/10/24 19:20 Respiratory Rate 17 09/10/24 19:20 Respiratory Effort Normal 09/10/24 18:53 Respiratory Depth Normal 09/10/24 18:53 Respiratory Pattern Normal 09/10/24 18:53 Blood Pressure 187/65 H 09/10/24 19:15 Blood Pressure Mean 112 09/10/24 19:15 Pulse Oximetry 96 09/10/24 19:20 Pain Level 0 09/10/24 18:32 Lab/Test Results Lab/Test Results: 09/10/24 19:35 Urine - Reflex from Ua Urine Culture - Pending Laboratory Tests Range/Units 09/10/24 09/10/24 18:50 19:35 WBC (4.4-10.8) 10^3/uL 5.70 RBC (3.93-5.22) 10^6/uL 4.19 Hgb (11.2-15.7) g/dL 12.5 Hct (36.0-46.0) % 37.8 MCV (80-95) fL 90 MCH (27.0-33.0) pg 29.8 MCHC (32.0-36.0) % 33.1 RDW (11.7-14.6) % 12.8 Plt Count (130-400) 10^3/uL 159 MPV (8.0-11.0) fL 10.6 Immature Gran % % 0.2 Neutrophils % % 62.7 Lymphocytes % % 23.9 Monocytes % % 10.9 Eosinophils % % 1.9 Basophils % % 0.4 Nucleated RBC % (0.0-0.3) % 0.0 Absolute Neutrophils (1.2-6.7) 10^3/uL 3.58 Absolute Lymphocytes (1.2-3.4) 10^3/uL 1.36 Absolute Monocytes (0.1-0.8) 10^3/uL 0.62 Absolute Eosinophils (0.0-0.7) 10^3/uL 0.11 Absolute Basophils (0.0-0.2) 10^3/uL 0.02 VBG Lactate (<or=2.0) mmol/L 0.8 Sodium (136-145) mmol/L 134 L Potassium (3.5-5.1) mmol/L 4.7 Chloride (98-107) mmol/L 96 L Carbon Dioxide (21.0-32.0) mmol/L 34.1 H Anion Gap (3-11) mmol/L 3.9 BUN (7-18) mg/dL 16 Creatinine (0.55-1.02) mg/dL 0.6 Est GFR (CKD-EPI 2020) (mL/min/1.73m2) 86.82 Glucose (74-106) mg/dL 102 Calcium (8.5-10.1) mg/dL 9.1 Magnesium (1.8-2.4) mg/dL 1.9 Total Bilirubin (0.2-1.0) mg/dL 0.5 AST (15-37) U/L 33 ALT (14-59) U/L 37 Alkaline Phosphatase (46-116) U/L 109 Troponin I (<or=51) ng/L 5 Total Protein (6.4-8.2) g/dL 7.2 Albumin (3.4-5.0) g/dL 4.0 TSH (0.36-3.74) uIU/mL 2.62 Urine Color (Yellow) Yellow Urine Clarity (Clear) Clear Urine pH (5-8) 7.0 Ur Specific [place] (1.005-1.025) 1.020 Urine Protein (Neg-Trace) mg/dL Negative Urine Ketones (Negative) mg/dL Negative Urine Blood (Negative) Negative Urine Nitrite (Negative) Positive H Urine Bilirubin (Negative) Negative Urine Urobilinogen (Up to 0.2) mg/dL 0.2 Ur Leukocyte Esterase (Negative) Trace H Urine RBC (0-2) HPF Negative Urine WBC (0-5) HPF 10-20 H Ur Epithelial Cells (Negative) HPF Rare Urine Crystals (Negative) HPF Negative Urine Bacteria (Negative) HPF Many Urine Casts (Negative) LPF Negative Urine Mucus (Negative) Negative Ur Culture Indicated? Yes Urine Glucose (Negative) mg/dL Negative Medical Decision Making This dictation utilizes [id number] dictation software and may contain unedited grammatical errors. 89 year-old female presents to ED today by POV/ambulating with a chief complaint of coordination difficulty- dropping things, difficulty ambulating and following directs with onset possibly at 1600- patient had taken a drive with her son prior, he states they didn't talk during this and sometime after returning around 1730 he called to her to let her know her sister called- and noticed she couldn't hold her phone. Quality described as R hand coordination difficulties, speech problems, gait instability, no radiation to fever, cough, chest pain, shortness of breath, abdominal pain, nausea/vomiting. Severity is described as unable to quantify. Palliating factors include nothing specific attempted. Provoking factors include nothing specific. Events leading up to the incident/Associated Symptoms: Patients' son states she has sodium problems and has presented similar for them in the past. Patients' medical history: Pancreatitis, COPD, history of TIA, hyponatremia, GERD, hypertension, SIADH, DNR status. Family and social history: Lives at home with son, no EtOH or tobacco use. Pertinent exam findings / vital signs include NIH: 0 on arrival, benign cardiopulmonary exam, hypertensive. Differential / pathologies of concern include Stroke, TIA, Hyponatremia, UTI, Debility. Diagnostic studies of: - CBC, CMP, magnesium, troponin, TSH, UA, lactate, ammonia, CTA brain and neck, XR chest, EKG. - CBC shows no acute abnormality - Lactate negative - CMP is unremarkable, sodium 134 - Magnesium within normal limits - Serial troponins negative - TSH within normal limits - UA shows UTI - potentially colonized, am not empirically treating without symptomatic syndrome - CTA shows no major occlusive pathology in the head or neck - XR chest shows no acute pathology - EKG without ischemic changes Interventions of: -[facility] Consult with Dr. Jackson- 2009- agrees TIA with fully resolved syndrome, recommends loading with 300mg Plavix, high-dose statin, and MRI/ECHO. Dr. Newsome accepted for admission @ 2100. ED Course/Assessment/Plan: 89-year-old female presents with some altered mentation per her son, he is a poor historian and guesses her last known well time was 1600 but states that they were taking a little car ride together and did not speak much, he noticed that sometime later his mother was having trouble holding her phone with her right hand as she was try to call her sister back, the patient was having trouble finding words, her neuroexam is normal by the time of arrival, she was seen by teleneurology Dr. Jackson and I spoke with her at 2009-recommends TIA admission, loaded with Plavix, MRI and echo to follow. Findings not consistent with [ ]. Disposition of Transient Ischemic Attack. Patient verbalized understanding of the plan and return to ED criteria and engaged in shared decision making. Medical Records Medical records reviewed: Yes I reviewed the patient's medical records. Imaging Data Radiologic Study: Attestation: I personally reviewed and interpreted this imaging study as follows: Imaging: CT Scan Radiologist's impression: Exam: CTA Head Without And With Contrast, Arteriography Exam date and time: 09/10/2024 7:34 PM Age: 89 years old Clinical indication: Other: Confusion, transient L arm numbness TECHNIQUE: Imaging protocol: Computed tomographic angiography of the head without and with contrast. Exam focused on the arteries. 3D rendering (Not supervised by radiologist): MIP and/or 3D reconstructed images were created by the technologist. Contrast material: OMNIPAQAUE 350; Contrast volume: 70 ml; Contrast route: INTRAVENOUS (IV); COMPARISON: CT BRAIN NECK CTA 05/30/2024 11:41 PM FINDINGS: ANTERIOR CIRCULATION: Right internal carotid artery: Intracranial segment is patent with no significant stenosis. No aneurysm. Mild atherosclerosis typical for age. Right middle cerebral artery: No occlusion or significant stenosis. No aneurysm. Right anterior cerebral artery: No occlusion or significant stenosis. No aneurysm. Left internal carotid artery: Intracranial segment is patent with no significant stenosis. No aneurysm. Mild atherosclerosis typical for age. Left middle cerebral artery: No occlusion or significant stenosis. No aneurysm. Left anterior cerebral artery: No occlusion or significant stenosis. No aneurysm. POSTERIOR CIRCULATION: Right vertebral artery: No occlusion or significant stenosis. No aneurysm. Left vertebral artery: No occlusion or significant stenosis. No aneurysm. Basilar artery: No occlusion or significant stenosis. No aneurysm. Right posterior cerebral artery: No occlusion or significant stenosis. No aneurysm. Left posterior cerebral artery: No occlusion or significant stenosis. No aneurysm. HEAD: Brain: Atrophy and chronic appearing white matter changes. Physiologic calcification in the basal ganglia. No edema or hemorrhage. No abnormal intracranial enhancement. No midline shift. Cerebral ventricles: Ex vacuo dilation of the ventricular system. Bones: . No acute fracture. Paranasal sinuses: Trace mucosal thickening in paranasal sinuses. Mastoid air cells: . No mastoid effusion. Soft tissues: Unremarkable. IMPRESSION: No acute arterial pathology. No large vessel occlusion. PROCEDURE INFORMATION: Exam: CTA Neck Without And With Contrast Exam date and time: 09/10/2024 7:34 PM Age: 89 years old Clinical indication: Other: Confusion, transient L arm numbness TECHNIQUE: Imaging protocol: Computed tomographic angiography of the neck without and with contrast. Exam focused on the cervical segments of the vasculature. 3D rendering (Not supervised by radiologist): MIP and/or 3D reconstructed images were created by the technologist. Contrast material: OMNIPAQAUE 350; Contrast volume: 70 ml; Contrast route: INTRAVENOUS (IV); COMPARISON: CT BRAIN NECK CTA 05/30/2024 11:41 PM FINDINGS: Right common carotid artery: No significant stenosis. No dissection or occlusion. Right internal carotid artery: Right ICA atherosclerosis without hemodynamically significant stenosis. No dissection. Right external carotid artery: No occlusion or significant stenosis. Left common carotid artery: No significant stenosis. No dissection or occlusion. Left internal carotid artery: Left ICA atherosclerosis without hemodynamically significant stenosis. No dissection. Left external carotid artery: No occlusion or significant stenosis. Right vertebral artery: No significant stenosis. No dissection or occlusion. Left vertebral artery: No significant stenosis. No dissection or occlusion. Soft tissues: No significant soft tissue swelling. Bones/joints: Chronic bony changes with no acute fracture. Pleural spaces: Chronic appearing pleural-parenchymal scarring in the lung apices most likely, similar to recent imaging. IMPRESSION: No acute arterial pathology. Patent carotid and vertebral system bilaterally. REFERENCES: NASCET CRITERIA. The degree of stenosis in the cervical segment of the internal carotid artery is based on NASCET criteria. Normal is no stenosis. Mild is less than 50% stenosis. Moderate is 50-69% stenosis. Severe is 70% to 99% stenosis. Total occlusion is no detectable patent lumen. Dictated and Authenticated by: Kelsea Osuna MD. Radiologic Study #2: Attestation: I personally reviewed and interpreted this imaging study as follows: Imaging: X-Ray Radiologist's impression: Exam: XR Chest Exam date and time: 09/10/2024 7:57 PM Age: 89 years old Clinical indication: Other: Near syncope TECHNIQUE: Imaging protocol: Radiologic exam of the chest. Views: 1 view. COMPARISON: CR XR CHEST 2V PA LATERAL 05/23/2024 8:53 PM FINDINGS: Lungs: Hyperinflation and patchy peripheral predominant interstitial densities similar to prior suggesting chronic fibrosis or other interstitial disease. No new significant airspace consolidation. Pleural spaces: No pleural effusion. No pneumothorax. Heart/Mediastinum: Mild cardiomegaly without vascular congestion for technique, similar to prior. Bones/joints: Chronic bony changes with no acute fracture. IMPRESSION: 1. Mild cardiomegaly without vascular congestion for technique, similar to prior. 2. Additional chronic findings as described. Dictated and Authenticated by: Kelsea Osuna MD. Lab Data Lab results reviewed: Yes I reviewed the patient's lab results. Labs: 09/10/24 19:35 Urine - Reflex from Ua Urine Culture - Pending Laboratory Tests Range/Units 09/10/24 09/10/24 18:50 19:35 WBC (4.4-10.8) 10^3/uL 5.70 RBC (3.93-5.22) 10^6/uL 4.19 Hgb (11.2-15.7) g/dL 12.5 Hct (36.0-46.0) % 37.8 MCV (80-95) fL 90 MCH (27.0-33.0) pg 29.8 MCHC (32.0-36.0) % 33.1 RDW (11.7-14.6) % 12.8 Plt Count (130-400) 10^3/uL 159 MPV (8.0-11.0) fL 10.6 Immature Gran % % 0.2 Neutrophils % % 62.7 Lymphocytes % % 23.9 Monocytes % % 10.9 Eosinophils % % 1.9 Basophils % % 0.4 Nucleated RBC % (0.0-0.3) % 0.0 Absolute Neutrophils (1.2-6.7) 10^3/uL 3.58 Absolute Lymphocytes (1.2-3.4) 10^3/uL 1.36 Absolute Monocytes (0.1-0.8) 10^3/uL 0.62 Absolute Eosinophils (0.0-0.7) 10^3/uL 0.11 Absolute Basophils (0.0-0.2) 10^3/uL 0.02 VBG Lactate (<or=2.0) mmol/L 0.8 Sodium (136-145) mmol/L 134 L Potassium (3.5-5.1) mmol/L 4.7 Chloride (98-107) mmol/L 96 L Carbon Dioxide (21.0-32.0) mmol/L 34.1 H Anion Gap (3-11) mmol/L 3.9 BUN (7-18) mg/dL 16 Creatinine (0.55-1.02) mg/dL 0.6 Est GFR (CKD-EPI 2020) (mL/min/1.73m2) 86.82 Glucose (74-106) mg/dL 102 Calcium (8.5-10.1) mg/dL 9.1 Magnesium (1.8-2.4) mg/dL 1.9 Total Bilirubin (0.2-1.0) mg/dL 0.5 AST (15-37) U/L 33 ALT (14-59) U/L 37 Alkaline Phosphatase (46-116) U/L 109 Troponin I (<or=51) ng/L 5 Total Protein (6.4-8.2) g/dL 7.2 Albumin (3.4-5.0) g/dL 4.0 TSH (0.36-3.74) uIU/mL 2.62 Urine Color (Yellow) Yellow Urine Clarity (Clear) Clear Urine pH (5-8) 7.0 Ur Specific [place] (1.005-1.025) 1.020 Urine Protein (Neg-Trace) mg/dL Negative Urine Ketones (Negative) mg/dL Negative Urine Blood (Negative) Negative Urine Nitrite (Negative) Positive H Urine Bilirubin (Negative) Negative Urine Urobilinogen (Up to 0.2) mg/dL 0.2 Ur Leukocyte Esterase (Negative) Trace H Urine RBC (0-2) HPF Negative Urine WBC (0-5) HPF 10-20 H Ur Epithelial Cells (Negative) HPF Rare Urine Crystals (Negative) HPF Negative Urine Bacteria (Negative) HPF Many Urine Casts (Negative) LPF Negative Urine Mucus (Negative) Negative Ur Culture Indicated? Yes Urine Glucose (Negative) mg/dL Negative Quality:SDOH Health Related Social Needs: Health related social needs lonely/isolated PFSH All Active Problems (Updated 09/10/24 @ 21:56 by Andres Newsome) COPD (chronic obstructive pulmonary disease) (Chronic) Transient ischemic attack (Acute) Dysthymia (Acute) Chronic abdominal pain (Acute) HTN (hypertension) (Chronic) Frailty syndrome in geriatric patient (Chronic) Urinary incontinence (Chronic) SIADH (syndrome of inappropriate ADH production) (Chronic) Generalized weakness (Chronic) Constipation (Chronic) Serrated adenoma of colon (Chronic ~07/18/22) Dermatitis (Chronic) Anemia (Chronic) Pulmonary nodules (Chronic) 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 NO feeding tube Medical History (Updated 09/10/24 @ 21:56 by Andres Newsome) Pancreatitis COPD exacerbation Palliative care patient Palliative care is happy to urgently consult on this patient in ED and help with decisions needed at the time if staffing available. LUQ abdominal pain Neck pain on right side New daily persistent headache wakes up with, gone by noon, pain radiates to right side of neck Bacterial vaginosis Constipation Abnormal weight loss Recurrent pneumonia Pneumonia involving right lung Pancytopenia, acquired Brain TIA Uterine prolapse Stage 3 Advanced care planning/counseling discussion Shingles Perforated diverticulum Hyponatremia Multiple occasions last of which was 01/2021, 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 Elevated urine sodium with episode of hyponatremia evaluated at [facility] 2019 GERD with esophagitis Erosive gastritis Pancreatitis Macular degeneration Hx of fracture of pelvis pt. 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 intestinal meta. or dysplasia Essential hypertension (01/14/13) Depressive disorder Atrophic vaginitis (08/19/11) Pt. states she is unsure Family history of GI malignancy Surgical History Cortical age-related cataract, left eye Nuclear age-related cataract, left eye Cortical age-related cataract, right eye Nuclear age-related cataract, right eye H/O sigmoidoscopy (~07/18/22) KNEE SURGERY (~05/2012) Abdominal hysterectomy EGD - MAC (04/22/17) Colonoscopy - MAC (04/22/17) Colonoscopy - MAC (~02/2012) Cholecystectomy Bladder Surgery Bilateral salpingectomy with oophorectomy Arthroplasty of knee (05/27/12) LEFT - Pt denies knee replacement Family History Mother , AGE 84 Heart disease Father , AGE 87 Stroke Heart disease Cancer Sister Stroke Brother Alcohol abuse Cancer Brother Cancer of kidney Son Hyperlipidemia Pulmonary disease Daughter Thyroid disease Daughter Cancer s/p hysterectomy Daughter No problems noted. Daughter No problems noted. Brother No problems noted. Maternal Grandfather No problems noted. Paternal Grandfather No problems noted. Maternal Grandmother No problems noted. Paternal Grandfather No problems noted. Social History Smoking/Tobacco Use Status: Former Tobacco Use tobacco type: cigarettes Quit Date: 03/17/97 Second Hand Exposure: Yes Smoking risk assessment performed?: Yes Alcohol Intake: never Drug use: Never Substance use type: does not use Adopted: No Caregiver/Support person: Yes (both boxes checked) Housing: house Number of Children: 5 Communication Needs: Hard of Hearing and Corrective Lenses Education Level: high school Do you need help understanding health information?: Always current occupation: none Pets and animals: No Sexually active: No Do you think of yourself as: straight/heterosexual Current gender identity: female What is your relationship status?: How often do you talk on the phone with friends or family?: decline to answer How often do you get together with friends or relatives?: decline to answer How often do you attend worship or restoration services?: decline to answer Do you belong to any clubs or organized social groups?: no Panel score (0-1 are the most socially isolated patients): 0 What type of physical activity do you participate in: walking Carri/Temple: No preference Special carri needs: No Seatbelt use: always Helmet use: No Drive intox 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 carry all driver: No Firearms in home: No Do you feel safe at home: Yes (pt reports she feels safe at home) Do you feel safe in your relationship?: Yes Additional Social history: lives with son
--- NOTE | 2024-09-10 20:16 | DI.VRAD_ITS ---
PROCEDURE INFORMATION: Exam: CTA Head Without And With Contrast, Arteriography Exam date and time: 09/10/2024 7:34 PM Age: 89 years old Clinical indication: Other: Confusion, transient L arm numbness TECHNIQUE: Imaging protocol: Computed tomographic angiography of the head without and with contrast. Exam focused on the arteries. 3D rendering (Not supervised by radiologist): MIP and/or 3D reconstructed images were created by the technologist. Contrast material: OMNIPAQAUE 350; Contrast volume: 70 ml; Contrast route: INTRAVENOUS (IV); COMPARISON: CT BRAIN NECK CTA 05/30/2024 11:41 PM FINDINGS: ANTERIOR CIRCULATION: Right internal carotid artery: Intracranial segment is patent with no significant stenosis. No aneurysm. Mild atherosclerosis typical for age. Right middle cerebral artery: No occlusion or significant stenosis. No aneurysm. Right anterior cerebral artery: No occlusion or significant stenosis. No aneurysm. Left internal carotid artery: Intracranial segment is patent with no significant stenosis. No aneurysm. Mild atherosclerosis typical for age. Left middle cerebral artery: No occlusion or significant stenosis. No aneurysm. Left anterior cerebral artery: No occlusion or significant stenosis. No aneurysm. POSTERIOR CIRCULATION: Right vertebral artery: No occlusion or significant stenosis. No aneurysm. Left vertebral artery: No occlusion or significant stenosis. No aneurysm. Basilar artery: No occlusion or significant stenosis. No aneurysm. Right posterior cerebral artery: No occlusion or significant stenosis. No aneurysm. Left posterior cerebral artery: No occlusion or significant stenosis. No aneurysm. HEAD: Brain: Atrophy and chronic appearing white matter changes. Physiologic calcification in the basal ganglia. No edema or hemorrhage. No abnormal intracranial enhancement. No midline shift. Cerebral ventricles: Ex vacuo dilation of the ventricular system. Bones: . No acute fracture. Paranasal sinuses: Trace mucosal thickening in paranasal sinuses. Mastoid air cells: . No mastoid effusion. Soft tissues: Unremarkable. IMPRESSION: No acute arterial pathology. No large vessel occlusion. PROCEDURE INFORMATION: Exam: CTA Neck Without And With Contrast Exam date and time: 09/10/2024 7:34 PM Age: 89 years old Clinical indication: Other: Confusion, transient L arm numbness TECHNIQUE: Imaging protocol: Computed tomographic angiography of the neck without and with contrast. Exam focused on the cervical segments of the vasculature. 3D rendering (Not supervised by radiologist): MIP and/or 3D reconstructed images were created by the technologist. Contrast material: OMNIPAQAUE 350; Contrast volume: 70 ml; Contrast route: INTRAVENOUS (IV); COMPARISON: CT BRAIN NECK CTA 05/30/2024 11:41 PM FINDINGS: Right common carotid artery: No significant stenosis. No dissection or occlusion. Right internal carotid artery: Right ICA atherosclerosis without hemodynamically significant stenosis. No dissection. Right external carotid artery: No occlusion or significant stenosis. Left common carotid artery: No significant stenosis. No dissection or occlusion. Left internal carotid artery: Left ICA atherosclerosis without hemodynamically significant stenosis. No dissection. Left external carotid artery: No occlusion or significant stenosis. Right vertebral artery: No significant stenosis. No dissection or occlusion. Left vertebral artery: No significant stenosis. No dissection or occlusion. Soft tissues: No significant soft tissue swelling. Bones/joints: Chronic bony changes with no acute fracture. Pleural spaces: Chronic appearing pleural-parenchymal scarring in the lung apices most likely, similar to recent imaging. IMPRESSION: No acute arterial pathology. Patent carotid and vertebral system bilaterally. REFERENCES: NASCET CRITERIA. The degree of stenosis in the cervical segment of the internal carotid artery is based on NASCET criteria. Normal is no stenosis. Mild is less than 50% stenosis. Moderate is 50-69% stenosis. Severe is 70% to 99% stenosis. Total occlusion is no detectable patent lumen. Dictated and Authenticated by: Kelsea Osuna MD. Orderin Nura Santos MD
--- NOTE | 2024-09-10 20:17 | DI.VRAD_ITS ---
PROCEDURE INFORMATION: Exam: XR Chest Exam date and time: 09/10/2024 7:57 PM Age: 89 years old Clinical indication: Other: Near syncope TECHNIQUE: Imaging protocol: Radiologic exam of the chest. Views: 1 view. COMPARISON: CR XR CHEST 2V PA LATERAL 05/23/2024 8:53 PM FINDINGS: Lungs: Hyperinflation and patchy peripheral predominant interstitial densities similar to prior suggesting chronic fibrosis or other interstitial disease. No new significant airspace consolidation. Pleural spaces: No pleural effusion. No pneumothorax. Heart/Mediastinum: Mild cardiomegaly without vascular congestion for technique, similar to prior. Bones/joints: Chronic bony changes with no acute fracture. IMPRESSION: 1. Mild cardiomegaly without vascular congestion for technique, similar to prior. 2. Additional chronic findings as described. Dictated and Authenticated by: Kelsea Osuna MD. Orderin Nura Santos MD
[2024-09-10 20:35] LABS: Ammonia < 10 umol/L (11-32)
[2024-09-10 20:44] LABS: Troponin I 6 ng/L (<or=51)
[2024-09-10] MEDS: Clopidogrel 300 MG TAB PO (21:22)
[2024-09-10] MEDS: Metoprolol 25 MG TAB PO (21:22)
[2024-09-10] MEDS: Atorvastatin 40 MG TAB 80 MG PO (21:22)
--- NOTE | 2024-09-10 21:52 | W.PM.HP.N ---
Date of service: 09/10/24 Time of Service: 21:52 Assessment and Plan Assessment and plan (1) Transient ischemic attack: Start date: 09/10/24 Status: Acute Assessment and plan: This is an 89-year-old lady with presentation of left cerebral hemisphere deficits affecting speech and her right hand. The abnormalities resolved while in the ED and teleneurology did advise loading dose of Plavix 300 mg then Plavix 75 mg along with baby aspirin which would be continued daily for the next 3 weeks then discontinued. They also advised further evaluation with CT of the head and neck unrevealing. She will obtain MRI of the brain when available and echocardiogram when available. If she stabilizes on dual platelet therapy, she could return home for outpatient follow-up for these studies. I did give the high-dose statin which should be continued and if needed, she should have PT and OT prior to discharge. Teleneurology recommendations should be reviewed and updated if necessary prior to discharge. She does have her son supervising her. She is a DNR/DNI. (2) Urinary tract infection: Start date: 09/10/24 Status: Acute Assessment and plan: Patient does have a positive urinalysis and will be placed on Rocephin IV for UTI. This could be exacerbating her presentation. She has no fever or elevated WBC. She also has no abdominal or urinary symptoms. She can be converted to oral therapy prior to discharge with guidance from urine culture if positive. (3) HTN (hypertension): Status: Chronic Assessment and plan: Continue outpatient medical therapy but modify for permissive hypertension. Patient's systolic blood pressure was well over 200 upon admission and metoprolol will be split dose and held if systolic blood pressure 160 or lower. She is on no other antihypertensives. 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 (5) COPD (chronic obstructive pulmonary disease): Status: Chronic Assessment and plan: Continue outpatient medical therapy with rescue inhaler. History of Present Illness History of Present Illness Chief Complaint: Acute onset right hand clumsiness and garbled speech. Narrative: This is an 89-year-old female patient who presented to the ED with her son noticing that her right hand was fine waiting a phone and appeared weak along with the patient having some problems speaking and searching for words. She was seen in the ED with stroke protocol having a CT of the head and neck which was unrevealing for acute infarction or occlusions and the patient's symptoms did improve. She is on a baby aspirin chronically and teleneurology did advise Plavix loading dose and then to 75 mg daily along with MRI of the brain and echocardiogram with bubble study though with her age, bubble study may not be necessary. The patient is very hard of hearing and reviewing her history offered no new findings. She does wander in conversation and still appears to be searching for words at times though this may be her decreased hearing and not having her hearing aids on. She is in no distress during my conversation. She is a DNR/DNI by reviewing her previous advanced directives. She does live with her son who did bring her to the ED. She does expect to be discharged back to her home with her son. Review of Systems Narrative: 13 point review of systems otherwise unrevealing or stable. Patient has no urinary complaints has had no chills or fever. PFSH All Active Problems (Updated 09/10/24 @ 22:42 by Andres Newsome) Urinary tract infection (Acute) COPD (chronic obstructive pulmonary disease) (Chronic) Transient ischemic attack (Acute) Dysthymia (Acute) Chronic abdominal pain (Acute) HTN (hypertension) (Chronic) Frailty syndrome in geriatric patient (Chronic) Urinary incontinence (Chronic) SIADH (syndrome of inappropriate ADH production) (Chronic) Generalized weakness (Chronic) Constipation (Chronic) Serrated adenoma of colon (Chronic ~07/18/22) Dermatitis (Chronic) Anemia (Chronic) Pulmonary nodules (Chronic) 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 NO feeding tube Medical History Pancreatitis COPD exacerbation Palliative care patient Palliative care is happy to urgently consult on this patient in ED and help with decisions needed at the time if staffing available. LUQ abdominal pain Neck pain on right side New daily persistent headache wakes up with, gone by noon, pain radiates to right side of neck Bacterial vaginosis Constipation Abnormal weight loss Recurrent pneumonia Pneumonia involving right lung Pancytopenia, acquired Brain TIA Uterine prolapse Stage 3 Advanced care planning/counseling discussion Shingles Perforated diverticulum Hyponatremia Multiple occasions last of which was 01/2021, 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 Elevated urine sodium with episode of hyponatremia evaluated at [facility] 2019 GERD with esophagitis Erosive gastritis Pancreatitis Macular degeneration Hx of fracture of pelvis pt. 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 intestinal meta. or dysplasia Essential hypertension (01/14/13) Depressive disorder Atrophic vaginitis (08/19/11) Pt. states she is unsure Family history of GI malignancy Surgical History Cortical age-related cataract, left eye Nuclear age-related cataract, left eye Cortical age-related cataract, right eye Nuclear age-related cataract, right eye H/O sigmoidoscopy (~07/18/22) KNEE SURGERY (~05/2012) Abdominal hysterectomy EGD - MAC (04/22/17) Colonoscopy - MAC (04/22/17) Colonoscopy - MAC (~02/2012) Cholecystectomy Bladder Surgery Bilateral salpingectomy with oophorectomy Arthroplasty of knee (05/27/12) LEFT - Pt denies knee replacement Family History Mother , AGE 84 Heart disease Father , AGE 87 Stroke Heart disease Cancer Sister Stroke Brother Alcohol abuse Cancer Brother Cancer of kidney Son Hyperlipidemia Pulmonary disease Daughter Thyroid disease Daughter Cancer s/p hysterectomy Daughter No problems noted. Daughter No problems noted. Brother No problems noted. Maternal Grandfather No problems noted. Paternal Grandfather No problems noted. Maternal Grandmother No problems noted. Paternal Grandfather No problems noted. Social History Smoking/Tobacco Use Status: Former Tobacco Use tobacco type: cigarettes Quit Date: 03/17/97 Second Hand Exposure: Yes Smoking risk assessment performed?: Yes Alcohol Intake: never Drug use: Never Substance use type: does not use Adopted: No Caregiver/Support person: Yes (both boxes checked) Housing: house Number of Children: 5 Communication Needs: Hard of Hearing and Corrective Lenses Education Level: high school Do you need help understanding health information?: Always current occupation: none Pets and animals: No Sexually active: No Do you think of yourself as: straight/heterosexual Current gender identity: female What is your relationship status?: How often do you talk on the phone with friends or family?: decline to answer How often do you get together with friends or relatives?: decline to answer How often do you attend christianity or caodaism services?: decline to answer Do you belong to any clubs or organized social groups?: no Panel score (0-1 are the most socially isolated patients): 0 What type of physical activity do you participate in: walking Carri/Scientologist: No preference Special carri needs: No Seatbelt use: always Helmet use: No Drive intox 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 funeral driver: No Firearms in home: No Do you feel safe at home: Yes (pt reports she feels safe at home) Do you feel safe in your relationship?: Yes Additional Social history: lives with son Meds Allergies and Home Medications Allergies Allergy/AdvReac Type Severity Reaction Status Date / Time ciprofloxacin (From Cipro) Allergy Intermediate Lips and Verified 09/10/24 18:49 face burn, feels shaky, arm tingly codeine AdvReac Intermediate Dizziness/L Verified 09/10/24 18:49 ightheade lovastatin AdvReac Intermediate myalgias Verified 09/10/24 18:49 oxycodone AdvReac Intermediate NAUSEA, GI Verified 09/10/24 18:49 UPSET azithromycin AdvReac cramping, Verified 09/10/24 18:49 anorexia doxycycline AdvReac Nausea, Verified 09/10/24 18:49 Vomiting hydrocodone AdvReac unknown Verified 09/10/24 18:49 Home Medications ?Medication ?Instructions ?Recorded ?Confirmed ?Type polyethylene glycol 400 0.25 % eye 1 drp ophthalmic (eye) DAILY 03/10/23 09/10/24 History drops (Blink Tears) macular degeneration inhalational spacing device #1 ea 05/21/23 09/10/24 Rx (Aerochamber MV spacer) polyethylene glycol 3350 17 17 g PO DAILY 06/05/23 09/10/24 History gram/dose oral powder (Miralax) vitamins A,C,W-gipk-hgoqan 4,296 1 cap PO BID 09/29/23 09/10/24 History mcg-226 mg-90 mg capsule (PreserVision AREDS) famotidine 20 mg tablet 20 mg PO QHS #90 tabs 01/13/24 09/10/24 Rx aspirin 81 mg tablet,delayed 81 mg PO DAILY #0 tabs 01/16/24 09/10/24 Rx release cranberry fruit 400 mg tablet 850 mg PO DAILY 04/15/24 09/10/24 History simvastatin 5 mg tablet 5 mg PO DAILY #90 tabs 04/27/24 09/10/24 Rx metoprolol tartrate 25 mg tablet 25 mg PO BID #180 tab-caps 04/30/24 09/10/24 Rx ondansetron HCl 4 mg tablet 4 mg PO Q8H PRN nausea and 05/10/24 09/10/24 Rx vomiting #14 tabs albuterol sulfate 90 mcg/actuation 1 - 2 inh inhalation Q6H PRN 05/17/24 09/10/24 Rx aerosol inhaler shortness of breath or wheezing #8.5 grams ondansetron 4 mg disintegrating 4 mg PO Q8H PRN #7 tabs 05/23/24 09/10/24 Rx tablet sodium chloride-potassium chloride See Rx Instructions PO QID 06/29/24 09/10/24 History 287 mg-180 mg-15 mg tablet (Thermotabs) betamethasone dipropionate 0.05 % 1 applic topical BID PRN skin 08/24/24 09/10/24 Rx topical cream irritation #45 grams estradiol 0.01% (0.1 mg/gram) 1 g vaginal DAILY #42.5 grams 08/24/24 09/10/24 Rx vaginal cream Exam Narrative Exam Narrative: General: Patient appears appropriate for age, alert and oriented at least to person and place. She is hard of hearing. She is in no acute distress. HEENT: Normocephalic, eyes with pupils equal and reactive to light symmetrically, extraocular movement intact and sclera anicteric. Oropharynx with slightly dry mucosa and fair dentition. Neck: Supple without JVD or palpable carotid thrills. Back: Kyphotic without CVA tenderness. Lungs: Fair aeration and clear to auscultation and percussion with no focalizing rales or rhonchi. Breast: Exam deferred. Heart: Regular rate and rhythm with no appreciable murmur or gallop. Abdomen: Normal contour, soft and nontender to palpation with no palpable hepatosplenomegaly. Bowel sounds positive in all quadrants. Genitalia/rectal: Exam deferred. Extremities: Without clubbing, cyanosis or grossly pitting edema. Patient moves all extremities well. Right hand grasp is slightly decreased compared to left and there are osteoarthritic changes of the IP joints. Fair capillary refill. Skin: Rough texture, normal color, warm and dry. Neuro: Cranial nerves II through XII grossly intact except for decreased hearing acuity. 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 No tremor. Psych: Flattened affect with depressed mood. No abnormal thought processes. Remote and recent memory grossly intact. Results Imaging Imaging Studies: Exam: CTA Head Without And With Contrast, Arteriography Exam date and time: 09/10/2024 7:34 PM Age: 89 years old Clinical indication: Other: Confusion, transient L arm numbness TECHNIQUE: Imaging protocol: Computed tomographic angiography of the head without and with contrast. Exam focused on the arteries. 3D rendering (Not supervised by radiologist): MIP and/or 3D reconstructed images were created by the technologist. Contrast material: OMNIPAQAUE 350; Contrast volume: 70 ml; Contrast route: INTRAVENOUS (IV); COMPARISON: CT BRAIN NECK CTA 05/30/2024 11:41 PM FINDINGS: ANTERIOR CIRCULATION: Right internal carotid artery: Intracranial segment is patent with no significant stenosis. No aneurysm. Mild atherosclerosis typical for age. Right middle cerebral artery: No occlusion or significant stenosis. No aneurysm. Right anterior cerebral artery: No occlusion or significant stenosis. No aneurysm. Left internal carotid artery: Intracranial segment is patent with no significant stenosis. No aneurysm. Mild atherosclerosis typical for age. Left middle cerebral artery: No occlusion or significant stenosis. No aneurysm. Left anterior cerebral artery: No occlusion or significant stenosis. No aneurysm. POSTERIOR CIRCULATION: Right vertebral artery: No occlusion or significant stenosis. No aneurysm. Left vertebral artery: No occlusion or significant stenosis. No aneurysm. Basilar artery: No occlusion or significant stenosis. No aneurysm. Right posterior cerebral artery: No occlusion or significant stenosis. No aneurysm. Left posterior cerebral artery: No occlusion or significant stenosis. No aneurysm. HEAD: Brain: Atrophy and chronic appearing white matter changes. Physiologic calcification in the basal ganglia. No edema or hemorrhage. No abnormal intracranial enhancement. No midline shift. Cerebral ventricles: Ex vacuo dilation of the ventricular system. Bones: . No acute fracture. Paranasal sinuses: Trace mucosal thickening in paranasal sinuses. Mastoid air cells: . No mastoid effusion. Soft tissues: Unremarkable. IMPRESSION: No acute arterial pathology. No large vessel occlusion. PROCEDURE INFORMATION: Exam: CTA Neck Without And With Contrast Exam date and time: 09/10/2024 7:34 PM Age: 89 years old Clinical indication: Other: Confusion, transient L arm numbness TECHNIQUE: Imaging protocol: Computed tomographic angiography of the neck without and with contrast. Exam focused on the cervical segments of the vasculature. 3D rendering (Not supervised by radiologist): MIP and/or 3D reconstructed images were created by the technologist. Contrast material: OMNIPAQAUE 350; Contrast volume: 70 ml; Contrast route: INTRAVENOUS (IV); COMPARISON: CT BRAIN NECK CTA 05/30/2024 11:41 PM FINDINGS: Right common carotid artery: No significant stenosis. No dissection or occlusion. Right internal carotid artery: Right ICA atherosclerosis without hemodynamically significant stenosis. No dissection. Right external carotid artery: No occlusion or significant stenosis. Left common carotid artery: No significant stenosis. No dissection or occlusion. Left internal carotid artery: Left ICA atherosclerosis without hemodynamically significant stenosis. No dissection. Left external carotid artery: No occlusion or significant stenosis. Right vertebral artery: No significant stenosis. No dissection or occlusion. Left vertebral artery: No significant stenosis. No dissection or occlusion. Soft tissues: No significant soft tissue swelling. Bones/joints: Chronic bony changes with no acute fracture. Pleural spaces: Chronic appearing pleural-parenchymal scarring in the lung apices most likely, similar to recent imaging. IMPRESSION: No acute arterial pathology. Patent carotid and vertebral system bilaterally. Exam: XR Chest Exam date and time: 09/10/2024 7:57 PM Age: 89 years old Clinical indication: Other: Near syncope TECHNIQUE: Imaging protocol: Radiologic exam of the chest. Views: 1 view. COMPARISON: CR XR CHEST 2V PA LATERAL 05/23/2024 8:53 PM FINDINGS: Lungs: Hyperinflation and patchy peripheral predominant interstitial densities similar to prior suggesting chronic fibrosis or other interstitial disease. No new significant airspace consolidation. Pleural spaces: No pleural effusion. No pneumothorax. Heart/Mediastinum: Mild cardiomegaly without vascular congestion for technique, similar to prior. Bones/joints: Chronic bony changes with no acute fracture. IMPRESSION: 1. Mild cardiomegaly without vascular congestion for technique, similar to prior. 2. Additional chronic findings as described. Labs 09/11/24 06:23 09/11/24 06:23 Labs: Laboratory Results - last 24 hr 09/10/24 09/10/24 09/10/24 18:50 19:35 20:10 WBC 5.70 RBC 4.19 Hgb 12.5 Hct 37.8 MCV 90 MCH 29.8 MCHC 33.1 RDW 12.8 Plt Count 159 MPV 10.6 Immature Gran % 0.2 Neutrophils % 62.7 Lymphocytes % 23.9 Monocytes % 10.9 Eosinophils % 1.9 Basophils % 0.4 Nucleated RBC % 0.0 Absolute Neutrophils 3.58 Absolute Lymphocytes 1.36 Absolute Monocytes 0.62 Absolute Eosinophils 0.11 Absolute Basophils 0.02 VBG Lactate 0.8 Sodium 134 L Potassium 4.7 Chloride 96 L Carbon Dioxide 34.1 H Anion Gap 3.9 BUN 16 Creatinine 0.6 Est GFR (CKD-EPI 2020) 86.82 Glucose 102 Calcium 9.1 Magnesium 1.9 Total Bilirubin 0.5 AST 33 ALT 37 Alkaline Phosphatase 109 Ammonia Troponin I 5 6 Total Protein 7.2 Albumin 4.0 TSH 2.62 Urine Color Yellow Urine Clarity Clear Urine pH 7.0 Ur Specific [place] 1.020 Urine Protein Negative Urine Ketones Negative Urine Blood Negative Urine Nitrite Positive H Urine Bilirubin Negative Urine Urobilinogen 0.2 Ur Leukocyte Esterase Trace H Urine RBC Negative Urine WBC 10-20 H Ur Epithelial Cells Rare Urine Crystals Negative Urine Bacteria Many Urine Casts Negative Urine Mucus Negative Ur Culture Indicated? Yes Urine Glucose Negative 09/10/24 20:11 WBC RBC Hgb Hct MCV MCH MCHC RDW Plt Count MPV Immature Gran % Neutrophils % Lymphocytes % Monocytes % Eosinophils % Basophils % Nucleated RBC % Absolute Neutrophils Absolute Lymphocytes Absolute Monocytes Absolute Eosinophils Absolute Basophils VBG Lactate Sodium Potassium Chloride Carbon Dioxide Anion Gap BUN Creatinine Est GFR (CKD-EPI 2020) Glucose Calcium Magnesium Total Bilirubin AST ALT Alkaline Phosphatase Ammonia < 10 L Troponin I Total Protein Albumin TSH Urine Color Urine Clarity Urine pH Ur Specific [place] Urine Protein Urine Ketones Urine Blood Urine Nitrite Urine Bilirubin Urine Urobilinogen Ur Leukocyte Esterase Urine RBC Urine WBC Ur Epithelial Cells Urine Crystals Urine Bacteria Urine Casts Urine Mucus Ur Culture Indicated? Urine Glucose Last Vital Signs Temp 36.3 C L 09/10/24 18:32 Pulse 56 L 09/10/24 20:12 Resp 12 09/10/24 20:12 BP 207/67 H 09/10/24 20:12 Pulse Ox 97 09/10/24 20:12 Time Spent Time spent with Patient: >75 minutes Time was spent: preparing to see the patient(eg.review tests), obtaining and/or reviewing separately otained hiistory, ordering medications,tests, procedures, referring, communicating with other health patient care director, indepentently interpreting results and care coordination
[2024-09-10 23:06] LABS: COVID-19 PCR Negative (Negative); Influenza A PCR Negative (Negative); Influenza B PCR Negative (Negative); RSV PCR Negative (Negative)
[2024-09-10 23:07] LABS: Source Nasopharynx
--- NOTE | 2024-09-10 23:23 | W.PCEDHO ---
Registration Status: REG ER Primary Language: Preferred Language: Luxembourgish ED Information & Data Chief Complaint AMS/LOC 09/10/24 20:05 Triage Note pt arrives with son who 09/10/24 18:32 states that mother is disoriented, keeps dropping things and is unable to walk . Pt is able to squeeze my left hand but not the right . Pt is unable to follow most directions. Son states this started around 1730 Medical / Surgical History (Last Reviewed 09/10/24 @ 21:52 by Andres Newsome) Pancreatitis COPD exacerbation Palliative care patient LUQ abdominal pain Neck pain on right side New daily persistent headache Bacterial vaginosis Constipation Abnormal weight loss Recurrent pneumonia Pneumonia involving right lung Pancytopenia, acquired Brain TIA Uterine prolapse Advanced care planning/counseling discussion Shingles Perforated diverticulum Hyponatremia GERD with esophagitis Erosive gastritis Pancreatitis Macular degeneration Hx of fracture of pelvis Diverticulitis (09/27/13) Vaginal wall prolapse (08/19/11) Tubulovillous adenoma of colon Tubular adenoma Mixed incontinence (08/19/11) 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) Hyperlipidemia History of tobacco use Gastroesophageal reflux disease with esophagitis Essential hypertension (01/14/13) Depressive disorder Atrophic vaginitis (08/19/11) Family history of GI malignancy (Last Reviewed 09/10/24 @ 21:52 by Andres Newsome) Cortical age-related cataract, left eye Nuclear age-related cataract, left eye Cortical age-related cataract, right eye Nuclear age-related cataract, right eye H/O sigmoidoscopy (~07/18/22) KNEE SURGERY (~05/2012) Abdominal hysterectomy EGD - MAC (04/22/17) Colonoscopy - MAC (04/22/17) Colonoscopy - MAC (~02/2012) Cholecystectomy Bladder Surgery Bilateral salpingectomy with oophorectomy Arthroplasty of knee (05/27/12) Most Recent Vital Signs Temperature 36.3 C L 09/10/24 18:32 Temperature Source Oral 09/10/24 18:32 Pulse 56 L 09/10/24 23:00 Pulse 58 L 09/10/24 23:00 Respiratory Rate 17 09/10/24 23:00 Respiratory Effort Normal 09/10/24 18:53 Respiratory Depth Normal 09/10/24 18:53 Respiratory Pattern Normal 09/10/24 18:53 Blood Pressure 175/62 H 09/10/24 22:31 Blood Pressure Mean 101 09/10/24 22:31 Pulse Oximetry 94 09/10/24 23:00 Pain Level 0 09/10/24 18:32 Allergies ciprofloxacin (From Cipro) Allergy (Intermediate, Verified 09/10/24 18:49) Lips and face burn, feels shaky, arm tingly codeine Adverse Reaction (Intermediate, Verified 09/10/24 18:49) Dizziness/Lightheade lovastatin Adverse Reaction (Intermediate, Verified 09/10/24 18:49) myalgias oxycodone Adverse Reaction (Intermediate, Verified 09/10/24 18:49) NAUSEA, GI UPSET azithromycin Adverse Reaction (Verified 09/10/24 18:49) cramping, anorexia Lips burn, flushed feeling, felt heart racing doxycycline Adverse Reaction (Verified 09/10/24 18:49) Nausea, Vomiting hydrocodone Adverse Reaction (Verified 09/10/24 18:49) unknown pt. states she does not remember her reaction to this medication. Precautions Isolation Standard precaution 09/10/24 18:50 Active Medications Generic Name Dose Route Start Last Admin Trade Name Milton PRN Reason Stop Dose Admin Iohexol 70 ml 09/10/24 19:30 09/10/24 19:24 Omnipaque 350 Mg/Ml 100 Ml Btl IJ 10/10/24 23:59 70 ml DIRECTED KATH Administration Sodium Chloride 50 ml 09/10/24 19:30 09/10/24 19:25 Normal Saline - Diluent 50 Ml Vial IJ 50 ml .FOR DI USE KATH Administration IV IV Catheter Type [Right Saline Lock Antecubital] IV Catheter Gauge [Right 18 Antecubital] Diagnostics 09/10/24 09/10/24 09/10/24 Range/Units 22:26 20:11 20:10 WBC (4.4-10.8) 10^3/uL RBC (3.93-5.22) 10^6/uL Hgb (11.2-15.7) g/dL Hct (36.0-46.0) % MCV (80-95) fL MCH (27.0-33.0) pg MCHC (32.0-36.0) % RDW (11.7-14.6) % Plt Count (130-400) 10^3/uL MPV (8.0-11.0) fL Immature Gran % % Neutrophils % % Lymphocytes % % Monocytes % % Eosinophils % % Basophils % % Nucleated RBC % (0.0-0.3) % Absolute Neutrophils (1.2-6.7) 10^3/uL Absolute Lymphocytes (1.2-3.4) 10^3/uL Absolute Monocytes (0.1-0.8) 10^3/uL Absolute Eosinophils (0.0-0.7) 10^3/uL Absolute Basophils (0.0-0.2) 10^3/uL VBG Lactate (<or=2.0) mmol/L Sodium (136-145) mmol/L Potassium (3.5-5.1) mmol/L Chloride (98-107) mmol/L Carbon Dioxide (21.0-32.0) mmol/L Anion Gap (3-11) mmol/L BUN (7-18) mg/dL Creatinine (0.55-1.02) mg/dL Est GFR (CKD-EPI 2020) (mL/min/1.73m2) Glucose (74-106) mg/dL Calcium (8.5-10.1) mg/dL Magnesium (1.8-2.4) mg/dL Total Bilirubin (0.2-1.0) mg/dL AST (15-37) U/L ALT (14-59) U/L Alkaline Phosphatase (46-116) U/L Ammonia < 10 L (11-32) umol/L Troponin I 6 (<or=51) ng/L Total Protein (6.4-8.2) g/dL Albumin (3.4-5.0) g/dL TSH (0.36-3.74) uIU/mL Urine Color (Yellow) Urine Clarity (Clear) Urine pH (5-8) Ur Specific [place] (1.005-1.025) Urine Protein (Neg-Trace) mg/dL Urine Ketones (Negative) mg/dL Urine Blood (Negative) Urine Nitrite (Negative) Urine Bilirubin (Negative) Urine Urobilinogen (Up to 0.2) mg/dL Ur Leukocyte Esterase (Negative) Urine RBC (0-2) HPF Urine WBC (0-5) HPF Ur Epithelial Cells (Negative) HPF Urine Crystals (Negative) HPF Urine Bacteria (Negative) HPF Urine Casts (Negative) LPF Urine Mucus (Negative) Ur Culture Indicated? Urine Glucose (Negative) mg/dL COVID-19 Source Nasopharynx SARS-CoV-2 (PCR) Negative (Negative) Influenza Type A (PCR) Negative (Negative) Influenza Type B (PCR) Negative (Negative) RSV (PCR) Negative (Negative) 09/10/24 09/10/24 Range/Units 19:35 18:50 WBC 5.70 (4.4-10.8) 10^3/uL RBC 4.19 (3.93-5.22) 10^6/uL Hgb 12.5 (11.2-15.7) g/dL Hct 37.8 (36.0-46.0) % MCV 90 (80-95) fL MCH 29.8 (27.0-33.0) pg MCHC 33.1 (32.0-36.0) % RDW 12.8 (11.7-14.6) % Plt Count 159 (130-400) 10^3/uL MPV 10.6 (8.0-11.0) fL Immature Gran % 0.2 % Neutrophils % 62.7 % Lymphocytes % 23.9 % Monocytes % 10.9 % Eosinophils % 1.9 % Basophils % 0.4 % Nucleated RBC % 0.0 (0.0-0.3) % Absolute Neutrophils 3.58 (1.2-6.7) 10^3/uL Absolute Lymphocytes 1.36 (1.2-3.4) 10^3/uL Absolute Monocytes 0.62 (0.1-0.8) 10^3/uL Absolute Eosinophils 0.11 (0.0-0.7) 10^3/uL Absolute Basophils 0.02 (0.0-0.2) 10^3/uL VBG Lactate 0.8 (<or=2.0) mmol/L Sodium 134 L (136-145) mmol/L Potassium 4.7 (3.5-5.1) mmol/L Chloride 96 L (98-107) mmol/L Carbon Dioxide 34.1 H (21.0-32.0) mmol/L Anion Gap 3.9 (3-11) mmol/L BUN 16 (7-18) mg/dL Creatinine 0.6 (0.55-1.02) mg/dL Est GFR (CKD-EPI 2020) 86.82 (mL/min/1.73m2) Glucose 102 (74-106) mg/dL Calcium 9.1 (8.5-10.1) mg/dL Magnesium 1.9 (1.8-2.4) mg/dL Total Bilirubin 0.5 (0.2-1.0) mg/dL AST 33 (15-37) U/L ALT 37 (14-59) U/L Alkaline Phosphatase 109 (46-116) U/L Ammonia (11-32) umol/L Troponin I 5 (<or=51) ng/L Total Protein 7.2 (6.4-8.2) g/dL Albumin 4.0 (3.4-5.0) g/dL TSH 2.62 (0.36-3.74) uIU/mL Urine Color Yellow (Yellow) Urine Clarity Clear (Clear) Urine pH 7.0 (5-8) Ur Specific [place] 1.020 (1.005-1.025) Urine Protein Negative (Neg-Trace) mg/dL Urine Ketones Negative (Negative) mg/dL Urine Blood Negative (Negative) Urine Nitrite Positive H (Negative) Urine Bilirubin Negative (Negative) Urine Urobilinogen 0.2 (Up to 0.2) mg/dL Ur Leukocyte Esterase Trace H (Negative) Urine RBC Negative (0-2) HPF Urine WBC 10-20 H (0-5) HPF Ur Epithelial Cells Rare (Negative) HPF Urine Crystals Negative (Negative) HPF Urine Bacteria Many (Negative) HPF Urine Casts Negative (Negative) LPF Urine Mucus Negative (Negative) Ur Culture Indicated? Yes Urine Glucose Negative (Negative) mg/dL COVID-19 Source SARS-CoV-2 (PCR) (Negative) Influenza Type A (PCR) (Negative) Influenza Type B (PCR) (Negative) RSV (PCR) (Negative) 09/10/24 19:35 Urine Culture - Pending Urine - Reflex from Ua Intake and Output - 24 Hour Total 09/10/24 18:18 thru 09/10/24 18:32 Weight 48.8 kg Falls Risk Assessment History of Falls Fall During Stay 09/10/24 18:51 Contributing Factors Confusion,Medications 09/10/24 18:51 Ambulatory Aids Independent 09/10/24 18:51 Tubes/Lines None 09/10/24 18:51 Gait Evaluation No gait disturbance 09/10/24 18:51 Cognition No cognitive impairment 09/10/24 18:51 Fall Total Score 31 09/10/24 18:51 Level of Risk Moderate Risk 09/10/24 18:51 Problems (Last Reviewed 09/10/24 @ 21:52 by Andres Newsome) Urinary tract infection (Acute) COPD (chronic obstructive pulmonary disease) (Chronic) Transient ischemic attack (Acute) HTN (hypertension) (Chronic) 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 Information / Comments: Brought in by son in wheelchair, unable to speak, make eye contact, follow commands, etc. Son noted she was dropping things and seemed out of it. 18:30 arrival. 18G R AC. Symptoms resolved by 19:30. A&Ox4 since. Night medications administered. (Metop, atorvastatin, plavix added per teleneuro). Clothing sent home with son for cleaning. Blood pressure persistently high, SBP >200, decreased with metop. Per son, previous episodes of SIADH, eats high sodium diet/sodium pills. Symptoms tonight similar to episodes of hyponatremia. Na 134 per lab. Sinus rhythm. MRI Friday. Echo Friday. Report received from: Cyndy Langford RN
[2024-09-11] VITALS (8 sets, daily range): BP systolic 146–177; BP diastolic 61–82; PULSE 55–72; RESP 12–69; TEMP 36.2–36.9; O2SAT 95–97
[2024-09-11] MEDS: cefTRIAXone 1 GM/50 ML BAG IVPB ×2 (00:18→23:06)
[2024-09-11] MEDS: Normal Saline Flush 10 ML SYR IVP ×3 (00:18→20:25)
[2024-09-11 07:28] LABS: HGB 12.5 g/dL (11.2-15.7); MCH 28.5 pg (27.0-33.0); MCHC 32.1 % (32.0-36.0); MCV 89 fL (80-95); MPV 10.6 fL (8.0-11.0); Platelet Count 158 10^3/uL (130-400); RBC 4.38 10^6/uL (3.93-5.22); RDW 12.6 % (11.7-14.6); RDW-SD 41.5 fL; WBC 5.69 10^3/uL (4.4-10.8)
[2024-09-11 07:48] LABS: ALT 33 U/L (14-59); AST 30 U/L (15-37); Albumin 3.6 g/dL (3.4-5.0); Alkaline Phosphatase 103 U/L (46-116); Anion Gap 6.3 mmol/L (3-11); BUN 11 mg/dL (7-18); Bilirubin, Total 0.6 mg/dL (0.2-1.0); CO2 31.7 mmol/L (21.0-32.0); CREATININE 0.5 mg/dL (0.55-1.02); Calcium 9.1 mg/dL (8.5-10.1); Chloride 97 mmol/L (98-107); Estimated GFR 90.72 (mL/min/1.73m2); Glucose 95 mg/dL (74-106); Magnesium 1.9 mg/dL (1.8-2.4); Potassium 4.3 mmol/L (3.5-5.1); Sodium 135 mmol/L (136-145); Total Protein 6.8 g/dL (6.4-8.2)
[2024-09-11] MEDS: Aspirin E.C. 81 MG TABEC PO (08:59)
[2024-09-11] MEDS: Enoxaparin 40 MG/0.4 ML SYR SC (08:59)
[2024-09-11] MEDS: Polyethylene Glycol 3350 17 GM PACKET PO (08:59)
[2024-09-11] MEDS: Preservision CAPSULE 1 CAP PO ×2 (09:00→20:24)
[2024-09-11] MEDS: Clopidogrel 75 MG TAB PO (09:00)
[2024-09-11] MEDS: Refresh PLUS Eye Drops 0.4ml 1 EACH OP (09:00)
--- NOTE | 2024-09-11 09:41 | IN_ITS ---
PT Notes Visit Reasons: TIA (cardiology) Physical Therapy Inpatient Initial Evaluation Date: 09/11/2024 Referring Doctor: Andres Newsome MD PT Orders: PT CONSULT: D/C Non-PT dependent Precautions: Standard. Activity as tolerated. Decreased auditory acuity. Patient Profile/Admitting Diagnosis: Cathy is an 89-year-old R hand-dominant female who presented to the ED on 09/10/2024 with chief complaints of decreased coordination on the R upper extremity with patient dropping things off R hand, unable to hold phone and cups using R hand, dofficulty walking, difficulty following instruction, and could not speak well as she has been. Patient was admitted for CVA work up. Working admitting diagnoses include TIA, UTI and HTN. PMHx: All Active Problems Constipation (Acute) Acute pancreatitis (Acute) Pancreatitis (Chronic) Bacterial vaginosis (Acute) HTN (hypertension) (Chronic) COPD exacerbation (Acute) Pneumonia involving right lung (Acute) Influenza A (Acute) New daily persistent headache (Acute) wakes up with, gone by noon, pain radiates to right side of neck Abnormal weight loss (Acute) Recurrent pneumonia (Chronic) Frailty syndrome in geriatric patient (Chronic) Palliative care patient (Chronic) Palliative care is happy to urgently consult on this patient in ED and help with decisions needed at the time if staffing available. 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 Elevated urine sodium with episode of hyponatremia evaluated at [facility] 2019 GERD with esophagitis Erosive gastritis Pancreatitis Macular degeneration Hx of fracture of pelvis pt. states she shattered her pelvis in 1970's Diverticulitis (09/27/13) 07/28 Vaginal wall prolapse (08/19/11) Tubulovillous adenoma of colon / sigmoid colon Tubular adenoma [place]\.: tubular adenoma ascending colon and in splenic flexure Mixed incontinence (08/19/11) 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 intestinal meta. or dysplasia Essential hypertension (01/14/13) Depressive disorder Atrophic vaginitis (08/19/11) Pt. states she is unsure Family history of GI malignancy Surgical History H/O sigmoidoscopy (~07/18/22) KNEE SURGERY (~05/2012) Abdominal hysterectomy EGD - MAC (04/22/17) Colonoscopy - MAC (04/22/17) Colonoscopy - MAC (~02/2012) Cholecystectomy Bladder Surgery Bilateral salpingectomy with oophorectomy Arthroplasty of knee (05/27/12) LEFT - Pt denies knee replacement Social History/Home Situation: Lives with son and his family in a private home with 3 steps to enter without rails. Independent with all mobility ADL performance with FWW. No longer dr cheek. No falls at home in the past year. Equipment Owned/DME: FWW, [employer] crutches Subjective: Denied headache, chest pain, and lightheadedness. Could not hear well despite having her hearing aids on. Agreeable to work with PT for this consult. Objective: General Observation: resting on bed. IV access through R UE. Mental Status: Alert and oriented as to person, place, time, and purpose. Able to pay attention, focus, and respond appropriately. Responses were accurate albeit slowed. Pain: None reported ROM: Right Upper Extremity: Shoulder Flexion WFL. Shoulder abduction WFL. Elbow flexion WFL. Wrist flexion WFL. Functional opening and closing of hand WFL. Left Upper Extremity: Shoulder Flexion WFL. Shoulder abduction WFL. Elbow flexion WFL. Wrist flexion WFL. Functional opening and closing of hand WFL. Right Lower Extremity: Hip flexion WFL. Hip abduction WFL. Knee flexion WFL. Ankle dorsiflexion WFL. Ankle plantarflexion WFL. Left Lower Extremity: Hip flexion WFL. Hip abduction WFL. Knee flexion WFL. Ankle dorsiflexion WFL. Ankle plantarflexion WFL. Strength: Right Upper Extremity: Shoulder flexors 4/5. Shoulder abductors 4/5. Elbow flexors 5/5. Elbow extensors 5/5. Sole Molding Machine Operator strong. Left Upper Extremity: Shoulder flexors 4/5. Shoulder abductors 4/5. Elbow flexors 5/5. Elbow extensors 5/5. Sole Molding Machine Operator strong. Right Lower Extremity: Hip flexors 4/5. Hip abductors 5/5. Knee flexors 5/5. Knee extensors 4/5. Ankle dorsiflexors 4/5. Ankle plantarflexors 4/5. Left Lower Extremity: Hip flexors 4/5. Hip abductors 5/5. Knee flexors 5/5. Knee extensors 4/5. Ankle dorsiflexors 4/5. Ankle plantarflexors 4/5. Bed Mobility/Transfers: Minimal cueing provided for use of B hands as needed for support, movement sequence, Ad management, and and posture to reduce fall risk and minimize pain report Sit to stand stand by assist with FWW Stand to sit stand by assist with FWW Bed to reclining chair stand by assist with FWW Reclining chair to bed stand by assist with FWW Gait: Instructed patient with level surface ambulation of 250 feet requiring stand by assist with wheelchair follow. Haley slowed. Stairs: Guided patient with safe and correct negotiation of 6 x 4-inch steps and 4 x 6- inch steps while holding onto B rails with stand by assist only with [id number] technique with minimal cues only for safety. Balance: Static Sitting: Normal Dynamic Sitting: Normal Static Standing: Good Dynamic Standing: Good 4-Stage Balance Test: Able to maintain feet together and semi-tandem for 10 seconds but is unable to do so with full tandem and one-legged stance legged stance. Rapid Alternating movement: Intact Rhombegr Test: Mild posterior sway but no LOB Pronator drift: Negative . Special Tests: Mobility Limitations Standardized Measure [employer] AM-PAC 6 clicks Basic Mobility Inpatient Short Form: Raw Score: 21 CMS Score:29% deficit 4-Stage Balance Test: Feet together 10 seconds Semi-tandem <10 seconds Full tandem <10 seconds One-legged stance <10 seconds Informed Consent/Education: Patient instructed in purpose of PT consult and plan of care. Agreeable to proceed with established PT POC to achieve personal goals. ASSESSMENT: Patient presents with clinical signs and symptoms consistent with current/admitting diagnoses that have resulted to mobility limitations, gait instability, generalized weakness, and overall ADL decline as demonstrated by the following impairment level findings: 1. Impaired standing balance 2. Generalized weakness Impairments are contributing to the following functional limitations: 2. Increased completion time for mobility ADL performance 3. Increased risk for falls Patient is assessed as a 91099 moderate complexity based on the following: History: 89-year-old female with past medical history as indicated above Examination: Demonstrable impairment in strength, balance, and mobility level with underlying impairments and functional limitations as exhibited above Presentation: Stable Decision Makin moderate complexity Goals: Goals X1 week 1. Stand-Sit independent 2. Bed-Chair independent 3. Chair-Bed independent 4. Independent gait on level surface with use FWW for at least 300 feet without report of pain nor dyspnea 5. Independent stair negotiation while holding onto SPC + rail for at least 10 steps without report of pain nor dyspnea 6. Independent with home exercise program 7. Good static and dynamic standing balance/tolerance Plan of Care/Treatment Plan: 1-2x/day, 7 days a week for 2 weeks. Patient will highly benefit from skilled physical therapy services including functional mobility training, bed mobility/transfer training, gait and balance training, therapeutic exercises, therapeutic activity, caregiver/staff/family education and training 1x/day, 7 days/week x 1 week. Plan of care has been reviewed with the [employer] providing the service under Physical Therapy direction. Initiate Physical Therapy intervention for strengthening, bed mobility, transfers, gait, stairs, balance training, use of assistive device. DISCHARGE RECOMMENDATIONS: [] Home with no services [] [X] Home with services. Patient will benefit from home health PT services in order to progress mobility level using least restrictive assistive ambulatory device, assess home safety, identify additional equipment needs, and establish a functional maintenance program that will increase ability of patient to remain at home. [] Home with outpatient PT [] SNF for continued rehabilitation [] [] Client Associate Care [] [] SNF versus LTC based on ability to participate and progress [] TREATMENT CODE/TIME: 99231 x 25 minutes for 1 unit, 56324 x 16 minutes for 1 unit (09:41-10:22). Thank you for the opportunity to participate in the care of this patient. Alyx Reyes PT, DPT, CLT [facility] [place], [place]
--- NOTE | 2024-09-11 12:31 | W.PM.PROGNOT ---
Date of Service Date of service: 09/11/24 Time of Service: 12:31 Assessment and Plan Assessment and plan (1) Transient ischemic attack: Status: Acute Assessment and plan: teleneuro consult admitted to telemetry for stroke r/o DAPT and high dose statin initiated MRI pending (2) Urinary tract infection: Status: Acute Assessment and plan: ceftriaxone day 2 while cultures pending (3) HTN (hypertension): Status: Chronic Assessment and plan: Continue outpatient medical therapy but modify for permissive hypertension. Patient's systolic blood pressure was well over 200 upon admission and metoprolol will be split dose and held if systolic blood pressure 160 or lower. She is on no other antihypertensives. 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 (5) COPD (chronic obstructive pulmonary disease): Status: Chronic Assessment and plan: Continue outpatient medical therapy with rescue inhaler. discussed with DR Phillip Subjective Subjective Patient reports: no new complaints, tolerating liquids well, tolerating a regular diet and afebrile; denies shortness of breath Interval history since last seen: have calf pain which is resolved. no lesion, bruising swelling or abnormal findings on exam Exam Narrative Exam Narrative: Elderly female frail stated age no acute distress, neurologic she is awake alert oriented poor historian no behavioral disturbances Head is atraumatic oral mucosas dry Neck is supple there is no JVD Cardiovascular regular rate and rhythm no peripheral edema Respirations are even and unlabored breath sounds are clear bilaterally with diminished bases Abdomen is flat soft, reports it is tender with palpation, positive bowel sounds Her extremities are without edema moves all extremities Objective Last Vital Signs Temp 36.9 C 09/11/24 11:54 Pulse 59 L 09/11/24 11:54 Resp 12 09/11/24 11:54 BP 150/65 H 09/11/24 11:54 Pulse Ox 97 09/11/24 11:54 Laboratory Results - last 24 hr 09/10/24 09/10/24 09/10/24 18:50 19:35 20:10 WBC 5.70 RBC 4.19 Hgb 12.5 Hct 37.8 MCV 90 MCH 29.8 MCHC 33.1 RDW 12.8 Plt Count 159 MPV 10.6 Immature Gran % 0.2 Neutrophils % 62.7 Lymphocytes % 23.9 Monocytes % 10.9 Eosinophils % 1.9 Basophils % 0.4 Nucleated RBC % 0.0 Absolute Neutrophils 3.58 Absolute Lymphocytes 1.36 Absolute Monocytes 0.62 Absolute Eosinophils 0.11 Absolute Basophils 0.02 VBG Lactate 0.8 Sodium 134 L Potassium 4.7 Chloride 96 L Carbon Dioxide 34.1 H Anion Gap 3.9 BUN 16 Creatinine 0.6 Est GFR (CKD-EPI 2020) 86.82 Glucose 102 Calcium 9.1 Magnesium 1.9 Total Bilirubin 0.5 AST 33 ALT 37 Alkaline Phosphatase 109 Ammonia Troponin I 5 6 Total Protein 7.2 Albumin 4.0 TSH 2.62 Urine Color Yellow Urine Clarity Clear Urine pH 7.0 Ur Specific [place] 1.020 Urine Protein Negative Urine Ketones Negative Urine Blood Negative Urine Nitrite Positive H Urine Bilirubin Negative Urine Urobilinogen 0.2 Ur Leukocyte Esterase Trace H Urine RBC Negative Urine WBC 10-20 H Ur Epithelial Cells Rare Urine Crystals Negative Urine Bacteria Many Urine Casts Negative Urine Mucus Negative Ur Culture Indicated? Yes Urine Glucose Negative COVID-19 Source SARS-CoV-2 (PCR) Influenza Type A (PCR) Influenza Type B (PCR) RSV (PCR) 09/10/24 09/10/24 09/11/24 20:11 22:26 06:23 WBC 5.69 RBC 4.38 Hgb 12.5 Hct 39.0 MCV 89 MCH 28.5 MCHC 32.1 RDW 12.6 Plt Count 158 MPV 10.6 Immature Gran % Neutrophils % Lymphocytes % Monocytes % Eosinophils % Basophils % Nucleated RBC % Absolute Neutrophils Absolute Lymphocytes Absolute Monocytes Absolute Eosinophils Absolute Basophils VBG Lactate Sodium 135 L Potassium 4.3 Chloride 97 L Carbon Dioxide 31.7 Anion Gap 6.3 BUN 11 Creatinine 0.5 L Est GFR (CKD-EPI 2020) 90.72 Glucose 95 Calcium 9.1 Magnesium 1.9 Total Bilirubin 0.6 AST 30 ALT 33 Alkaline Phosphatase 103 Ammonia < 10 L Troponin I Total Protein 6.8 Albumin 3.6 TSH Urine Color Urine Clarity Urine pH Ur Specific [place] Urine Protein Urine Ketones Urine Blood Urine Nitrite Urine Bilirubin Urine Urobilinogen Ur Leukocyte Esterase Urine RBC Urine WBC Ur Epithelial Cells Urine Crystals Urine Bacteria Urine Casts Urine Mucus Ur Culture Indicated? Urine Glucose COVID-19 Source Nasopharynx SARS-CoV-2 (PCR) Negative Influenza Type A (PCR) Negative Influenza Type B (PCR) Negative RSV (PCR) Negative Time Spent with Patient Time Spent with Patient: 35-49 minutes Time was spent: preparing to see the patient(eg.review tests), obtaining and/or reviewing separately otained hiistory, ordering medications,tests, procedures and indepentently interpreting results
--- NOTE | 2024-09-11 13:37 | INITIAL_ITS ---
Date of service: 09/11/24 Time of Service: 13:37 Care Management Initial Assmt Initial Assessment Reason for Hospitalization: TIA Functional Status/Living Situation Patient Presentation: Cathy was sitting up in her chair when CM met with her. She stated that she is doing ok, but she has some pain in her legs; CM informed her RN. She stated that she lives in [place] with her son, Grant, and that things are generally going well. Per MD, she will have an MRI and speech consult on Friday. She stated that she prefers to go home, once she is medically cleared. PT is recommending HH PT. CM will continue to follow. Town of Residence: [place] Resides with: Child (son, Grant) Significant Other/Family: Local Caregiver/Guardian: CAMMY Burns Natural Supports: daughters, Nancy and Scobey son, Grant Employment Status: Retired Instrumental Activities of Daily Living (ADLs): Independent Medications Medication Management: No Issues/Barriers identified Advance Directives Advance Directives: Do you have an Advance Directive: Y , 14:53 AD On File at [facility]: Y 05/24/24, 00:57 Date Asked 06/06/23 06/30/24, 18:59 AD Date Reviewed 09/10/24 09/10/24, 18:39 COLST On File at [facility] Yes 07/03/22, 14:53 COLST Date Scanned 03/20/23 03/20/23, 13:47 Code Status Resuscitation Status DNR/DNI Insurance Coverage/Financial Issues Insurance: MCR A[employer] MCR supplement 100% financial assistance Care Team Visit Care Team Role Provider Type Melva Hastings NP NURSE PRACTITIONER Jason Busby NP Primary Care Provider NURSE PRACTITIONER Gale Saini Other Providers REG OCCUPATIONAL THERAPIST InPatient Sumit Concepcion Other Providers OTHER FADIA Verma Emergency Provider PHYSICIANS ASSISTANT Andres Newsome Admit Provider NON-[facility] STAFF PHYSICIAN Attending Provider Discharge Potential Discharge Needs: PCP F/U Appt Anticipated Barriers to Discharge: Treatment delay (MRI and Speech not available on weekend) Patient/Family Education Needs: Review discharge instructions, discuss Ask Me Three Transportation: Private vehicle Plan: Anticipate Cathy will return home once medically cleared with new orders for HH PT. She will transport home via private vehicle. She will follow up with her PCP and discharge plan of care. CM will continue to follow. Social Determinants of Health Screening Will the Patient Participate in the Screening?: Declined to provide PFSH All Active Problems (Updated 09/10/24 @ 22:42 by Andres Newsome) Urinary tract infection (Acute) COPD (chronic obstructive pulmonary disease) (Chronic) Transient ischemic attack (Acute) Dysthymia (Acute) Chronic abdominal pain (Acute) HTN (hypertension) (Chronic) Frailty syndrome in geriatric patient (Chronic) Urinary incontinence (Chronic) SIADH (syndrome of inappropriate ADH production) (Chronic) Generalized weakness (Chronic) Constipation (Chronic) Serrated adenoma of colon (Chronic ~07/18/22) Dermatitis (Chronic) Anemia (Chronic) Pulmonary nodules (Chronic) 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 NO feeding tube Medical History Pancreatitis COPD exacerbation Palliative care patient Palliative care is happy to urgently consult on this patient in ED and help with decisions needed at the time if staffing available. LUQ abdominal pain Neck pain on right side New daily persistent headache wakes up with, gone by noon, pain radiates to right side of neck Bacterial vaginosis Constipation Abnormal weight loss Recurrent pneumonia Pneumonia involving right lung Pancytopenia, acquired Brain TIA Uterine prolapse Stage 3 Advanced care planning/counseling discussion Shingles Perforated diverticulum Hyponatremia Multiple occasions last of which was 01/2021, 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 Elevated urine sodium with episode of hyponatremia evaluated at [facility] 2019 GERD with esophagitis Erosive gastritis Pancreatitis Macular degeneration Hx of fracture of pelvis pt. 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 intestinal meta. or dysplasia Essential hypertension (01/14/13) Depressive disorder Atrophic vaginitis (08/19/11) Pt. states she is unsure Family history of GI malignancy Surgical History Cortical age-related cataract, left eye Nuclear age-related cataract, left eye Cortical age-related cataract, right eye Nuclear age-related cataract, right eye H/O sigmoidoscopy (~07/18/22) KNEE SURGERY (~05/2012) Abdominal hysterectomy EGD - MAC (04/22/17) Colonoscopy - MAC (04/22/17) Colonoscopy - MAC (~02/2012) Cholecystectomy Bladder Surgery Bilateral salpingectomy with oophorectomy Arthroplasty of knee (05/27/12) LEFT - Pt denies knee replacement Family History Mother , AGE 84 Heart disease Father , AGE 87 Stroke Heart disease Cancer Sister Stroke Brother Alcohol abuse Cancer Brother Cancer of kidney Son Hyperlipidemia Pulmonary disease Daughter Thyroid disease Daughter Cancer s/p hysterectomy Daughter No problems noted. Daughter No problems noted. Brother No problems noted. Maternal Grandfather No problems noted. Paternal Grandfather No problems noted. Maternal Grandmother No problems noted. Paternal Grandfather No problems noted. Social History Smoking/Tobacco Use Status: Former Tobacco Use tobacco type: cigarettes Quit Date: 03/17/97 Second Hand Exposure: Yes Smoking risk assessment performed?: Yes Alcohol Intake: never Drug use: Never Substance use type: does not use Adopted: No Caregiver/Support person: Yes (both boxes checked) Housing: house Number of Children: 5 Communication Needs: Hard of Hearing and Corrective Lenses Education Level: high school Do you need help understanding health information?: Always current occupation: none Pets and animals: No Sexually active: No Do you think of yourself as: straight/heterosexual Current gender identity: female What is your relationship status?: How often do you talk on the phone with friends or family?: decline to answer How often do you get together with friends or relatives?: decline to answer How often do you attend scientologist or mormon services?: decline to answer Do you belong to any clubs or organized social groups?: no Panel score (0-1 are the most socially isolated patients): 0 What type of physical activity do you participate in: walking Carri/Tenriism: No preference Special carri needs: No Seatbelt use: always Helmet use: No Drive intox 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 delivery driver/customer service: No Firearms in home: No Do you feel safe at home: Yes (pt reports she feels safe at home) Do you feel safe in your relationship?: Yes Additional Social history: lives with son Anticipated HH Services Anticipated HH Services at Discharge [facility] Needed, PT Anticipated Date of Discharge: 09/13/24. Following Provider: Jason Busby.
[2024-09-11] MEDS: Metoprolol 25 MG TAB PO (17:57)
[2024-09-11] MEDS: Atorvastatin 40 MG TAB 80 MG PO (20:24)
[2024-09-11] MEDS: Famotidine 20 MG TAB PO (20:24)
[2024-09-12] MEDS: Acetaminophen 325 MG TAB PO ×2 (02:11→19:31)
[2024-09-12 07:56] VITALS: BP 137/71; PULSE 80; RESP 17; TEMP 36.5; O2SAT 96
[2024-09-12] MEDS: Polyethylene Glycol 3350 17 GM PACKET PO (08:24)
[2024-09-12] MEDS: Preservision CAPSULE 1 CAP PO ×2 (08:24→19:32)
[2024-09-12] MEDS: Enoxaparin 40 MG/0.4 ML SYR SC (08:24)
[2024-09-12] MEDS: Clopidogrel 75 MG TAB PO (08:24)
[2024-09-12] MEDS: Refresh PLUS Eye Drops 0.4ml 1 EACH OP (08:24)
[2024-09-12] MEDS: Aspirin E.C. 81 MG TABEC PO (08:24)
[2024-09-12] MEDS: Normal Saline Flush 10 ML SYR IVP ×2 (08:25→19:32)
--- NOTE | 2024-09-12 09:49 | PTTR_ITS ---
PT Notes Visit Reasons: TIA (cardiology) Physical Therapy Inpatient Treatment Note Date: 09/12/2024 Precautions: Standard. Activity as tolerated. Decreased auditory acuity. Subjective: Agreeable to wear her shoes for this session. Denied headache, chest pain, and lightheadedness. Looking forward to tomorrow's MRI testing. Objective: General Observation: Seated on chair checking her green bag out. IV access through R UE. Mental Status: Alert and oriented as to person, place, time, and purpose. Able to pay attention, focus, and respond appropriately. Responses were accurate albeit slowed. Pain: None reported Bed Mobility/Transfers: Minimal cueing provided for use of B hands as needed for support, movement sequence, Ad management, and and posture to reduce fall risk and minimize pain report Sit to stand stand by assist with FWW Stand to sit stand by assist with FWW Bed to reclining chair stand by assist with FWW Reclining chair to bed stand by assist with FWW Gait: Instructed patient with level surface ambulation of 250 feet requiring stand by assist with wheelchair follow. Haley improved from yesterday. Stairs: Guided patient with safe and correct negotiation of 6 x 4-inch steps and 4 x 6- inch steps while holding onto B rails with stand by assist only with [id number] technique with minimal cues only for safety. Balance: Static Sitting: Normal Dynamic Sitting: Normal Static Standing: Good Dynamic Standing: Fair THERA EX: Guided patient with correct movement execution and safe techniques with exercises below: sit<>stand x 10 using B hands for support stepping exercises using 6-inch step R leg/L leg up/down x 10 ASSESSMENT: Strength symmetric with B UE/LE weakness. Navigation skills suing FWW has stayed the same as when patient was seen previously in this hospital. Haley decreased but patient has not needed physical assist with ambulation as long as she has the FWW. Trunk flexion increased but patient is able to stand up more erect when cued. Plan of Care/Treatment Plan: 1-2x/day, 7 days a week for 2 weeks. Patient will highly benefit from skilled physical therapy services including functional mobility training, bed mobility/transfer training, gait and balance training, therapeutic exercises, therapeutic activity, caregiver/staff/family education and training 1x/day, 7 days/week x 1 week. Plan of care has been reviewed with the MEDICAL LABORATORY TECHNICAL OFFICER providing the service under Physical Therapy direction. Initiate Physical Therapy intervention for strengthening, bed mobility, transfers, gait, stairs, balance training, use of assistive device. DISCHARGE RECOMMENDATIONS: Home with services. Patient will benefit from home health PT services in order to progress mobility level using least restrictive assistive ambulatory device, assess home safety, identify additional equipment needs, and establish a functional maintenance program that will increase ability of patient to remain at home. TREATMENT CODE/TIME: 60546 x 12 minutes for 1 unit, 07584 x 15 minutes for 1 unit (09:49-10:16).
[2024-09-12 11:42] VITALS: BP 118/56; PULSE 78; RESP 14; TEMP 36.4; O2SAT 93
--- NOTE | 2024-09-12 13:01 | W.PM.PROGNOT ---
Date of Service Date of service: 09/12/24 Time of Service: 13:01 Assessment and Plan Assessment and plan (1) Transient ischemic attack: Status: Acute Assessment and plan: teleneuro consulted admitted to telemetry for stroke r/o DAPT and high dose statin initiated Patient is at her baseline MRI and echo pending for Friday (2) Urinary tract infection: Status: Acute Assessment and plan: ceftriaxone day 3 while cultures pending Growing greater than 100,000 colonies of gram-negative rods (3) HTN (hypertension): Status: Chronic Assessment and plan: Blood pressure has normalized metoprolol holding parameters lifted (4) Sherwood's esophagus determined by biopsy: Status: Chronic Assessment and plan: Continue outpatient medical therapy with H2 antagonist, famotidine. (5) COPD (chronic obstructive pulmonary disease): Status: Chronic Assessment and plan: Continue outpatient medical therapy with rescue inhaler. discussed with DR Phillip Subjective Subjective Patient reports: no new complaints, feels better, tolerating liquids well, tolerating a regular diet and afebrile; denies shortness of breath Interval history since last seen: Patient remains hemodynamically stable and at her baseline no neuro deficits noted. Exam Narrative Exam Narrative: Elderly female frail stated age no acute distress, neurologic she is awake alert oriented poor historian no behavioral disturbances Head is atraumatic oral mucosas dry Neck is supple there is no JVD Cardiovascular regular rate and rhythm no peripheral edema Respirations are even and unlabored breath sounds are clear bilaterally with diminished bases Abdomen is flat soft, reports it is tender with palpation, positive bowel sounds Her extremities are without edema moves all extremities Objective Last Vital Signs Temp 36.4 C L 09/12/24 11:42 Pulse 78 09/12/24 11:42 Resp 14 09/12/24 11:42 BP 118/56 L 09/12/24 11:42 Pulse Ox 93 09/12/24 11:42 Time Spent with Patient Time Spent with Patient: 35-49 minutes Time was spent: preparing to see the patient(eg.review tests), obtaining and/or reviewing separately otained hiistory, ordering medications,tests, procedures, referring, communicating with other health gericare aide teacher, indepentently interpreting results and counseling the patient
[2024-09-12] MEDS: Famotidine 20 MG TAB PO (19:31)
[2024-09-12] MEDS: Metoprolol 25 MG TAB PO (19:32)
[2024-09-12] MEDS: Atorvastatin 40 MG TAB 80 MG PO (19:32)
[2024-09-12 20:31] VITALS: BP 131/62; PULSE 74; RESP 18; TEMP 36.8; O2SAT 94
[2024-09-12] MEDS: cefTRIAXone 1 GM/50 ML BAG IVPB (22:35)
[2024-09-13 04:59] VITALS: BP 140/63; PULSE 64; RESP 18; TEMP 37; O2SAT 97
--- NOTE | 2024-09-13 07:00 | DI.MRI_ITS ---
Exam(s) MR BRAIN WO EXAM: MR BRAIN WO CLINICAL HISTORY: TIA. TECHNIQUE: Multiplanar multisequence MRI of the brain was performed. CONTRAST MATERIAL: IV Contrast: ML of Dotarem contrast administered. COMPARISON: MR MR BRAIN WO from 01/15/[address] BRAIN NECK CTA from 09/10/2024 FINDINGS: VENTRICLES AND EXTRA AXIAL SPACES: Normal in size and morphology for the patient's age. HEMORRHAGE: None. CEREBRAL PARENCHYMA: No focus of restricted diffusion to suggest acute infarct. No space-occupying lesion identified. Mild atrophy. High signal foci again noted in the white matter consistent with severe microvascular changes. There are few scattered tiny punctate areas of signal blooming on SWI images consistent with hemosiderin foci. BRAINSTEM/CEREBELLUM: Normal. CALVARIUM: Normal. ENHANCEMENT: No suspicious enhancement identified. VISUALIZED PARANASAL SINUSES/MASTOIDS: Clear. Orbits: Unremarkable. Pituitary: Not enlarged. Vasculature: Normal flow voids. IMPRESSION: No evidence of acute infarct. Prominent white matter changes consistent with microvascular disease. DATA REPOSITORY:
[2024-09-13 07:22] VITALS: BP 156/68; PULSE 75; TEMP 36.2; O2SAT 95
[2024-09-13] MEDS: Normal Saline Flush 10 ML SYR IVP (09:00)
[2024-09-13] MEDS: Enoxaparin 40 MG/0.4 ML SYR SC (09:01)
[2024-09-13] MEDS: Polyethylene Glycol 3350 17 GM PACKET PO (09:01)
[2024-09-13] MEDS: Refresh PLUS Eye Drops 0.4ml 1 EACH OP (09:02)
[2024-09-13] MEDS: Clopidogrel 75 MG TAB PO (09:02)
[2024-09-13] MEDS: Metoprolol 25 MG TAB PO (09:02)
[2024-09-13] MEDS: Aspirin E.C. 81 MG TABEC PO (09:02)
[2024-09-13] MEDS: Preservision CAPSULE 1 CAP PO (09:02)
--- NOTE | 2024-09-13 10:20 | PTTR_ITS ---
PT Notes Visit Reasons: TIA (cardiology) Physical Therapy Inpatient Treatment Note Date: 09/13/2024 Precautions: Standard. Activity as tolerated. Decreased auditory acuity patient utilizes bilateral hearing aids. Subjective: Agreeable to wear her shoes for this session. Denied headache, chest pain, and lightheadedness. Looking forward to going home today. Patient reports she does not utilize FWW typically within her home. Objective: General Observation: Seated on chair. IV access through R UE. Mental Status: Alert and oriented as to person, place, time, and purpose. Able to pay attention, focus, and respond appropriately. Responses were accurate albeit slowed. Pain: None reported Bed Mobility/Transfers: Minimal cueing provided for use of B hands as needed for support, movement sequence, Ad management, and and posture to reduce fall risk and minimize pain report Sit to stand stand by assist with FWW x 3 trials and SBA without assistive device x 3 trials Stand to sit stand by assist with FWW x 3 trials and SBA without assistive device x 3 trials reclining chair to/from toilet stand by assist with FWW Reclining chair to wheelchair stand by assist without FWW Gait: Instructed patient with level surface ambulation of 250 feet x 2 1 trial with FWW 1 without requiring stand by assist with out wheelchair follow. reciprocal pattern without loss of balance. Stairs: Guided patient with safe and correct negotiation of 6 x 4-inch steps and 4 x 6- inch steps while holding onto B rails with stand by assist only with [id number] technique with minimal cues only for safety. Balance: Static Sitting: Normal Dynamic Sitting: Normal Static Standing: Good Dynamic Standing: Good THERA EX: Guided patient with correct movement execution and safe techniques with exercises below: sit<>stand x 10 using B hands for support stepping exercises using 6-inch step R leg/L leg up/down x 10 ASSESSMENT: Patient demonstrated no forward flexion during sit to stand, static standing or during ambulation with and without FWW this session. Patient demonstrated no loss of balance without assistive device during ambulation. Patient was instructed to continue to utilize FWW for community ambulation. Plan of Care/Treatment Plan: 1-2x/day, 7 days a week for 2 weeks. Patient will highly benefit from skilled physical therapy services including functional mobility training, bed mobility/transfer training, gait and balance training, therapeutic exercises, therapeutic activity, caregiver/staff/family education and training 1x/day, 7 days/week x 1 week. Plan of care has been reviewed with the BOOM SUPERVISOR providing the service under Physical Therapy direction. Initiate Physical Therapy intervention for strengthening, bed mobility, transfers, gait, stairs, balance training, use of assistive device. DISCHARGE RECOMMENDATIONS: Home with services. Patient will benefit from home health PT services in order to progress mobility level using least restrictive assistive ambulatory device, assess home safety, identify additional equipment needs, and establish a functional maintenance program that will increase ability of patient to remain at home. TREATMENT CODE/TIME: 71297 , 54819/[id number]?[id number], [id number]
[2024-09-13 11:40] VITALS: BP 145/57; PULSE 60; TEMP 36.4; O2SAT 99
[2024-09-13] MEDS: Fosfomycin Tromethamine 3 GM PACKET PO (12:25)
--- NOTE | 2024-09-13 12:29 | DSE_ITS ---
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 Symptoms resolved in the ED. CT head/neck was negative. Teleneurology recommended Plavix 300 mg loading dose followed by Plavix 75 mg daily for 21 days + aspirin 81 mg daily. MRI brain was unrevealing; echocardiogram showed EF 55%, no wall motion abnormalities. Dual antiplatelet therapy initiated with close monitoring. Atorvastatin 80 mg started. No further events during hospit alization. UTI: Incidental finding: UA positive; treated initially with IV Rocephin. No fever or leukocytosis. Converted to oral antibiotics prior to discharge pending culture results. No urinary symptoms reported. HTN: BP >200 systolic on admission. Patient on metoprolol, which was split into BID dosing. Sherwood?s Esophagus: Chronic condition managed with outpatient famotidine. No new GI complaints. COPD: Stable. Continued home inhaler therapy. No exacerbation during hospitalization. DISCHARGE MEDICATIONS * Plavix (clopidogrel) 75 mg daily ? 21 days (discontinue after) * Aspirin 81 mg daily * Atorvastatin 80 mg nightly * Famotidine as previously prescribed * Metoprolol (split dose) * Albuterol inhaler PRN (for COPD) DISPOSITION * Home with son, who provides supervision * Home Health Services PT ordered per their recommendation. FOLLOW-UP * PCP: Within 1 week * Teleneurology or stroke clinic: As needed * MRI Brain: Completed during hospitalization (negative) * Echocardiogram: Completed, EF 55%, no WMA * Consider follow-up GI and pulmonary based on chronic diagnoses CODE STATUS * DNR/DNI, per prior COLST dated 07/29/2024 Recommendations for Follow Up Recommended tests to be ordered by follow up provider: A1c and Lipid panel is drawn and pending at time of discharge. Home Meds and New Rx's Prescriptions: New atorvastatin 40 mg Tablet 80 mg PO QPM Qty: 60 0RF clopidogrel 75 mg Tablet 75 mg PO DAILY Qty: 18 0RF Continued PreserVision AREDS 4,296 mcg-226 mg-90 mg capsule 1 cap PO BID polyethylene glycol 3350 [Miralax] 17 gram/dose powder 17 g PO DAILY metoprolol tartrate 25 mg tablet 25 mg PO BID Qty: 180 3RF cranberry fruit 400 mg tablet 850 mg PO DAILY Patient Comments: 04/15/24- per pt report Rx Instructions: administer with a meal betamethasone dipropionate 0.05 % cream 1 applic topical BID PRN (Reason: skin irritation) Qty: 45 0RF estradiol 0.01 % (0.1 mg/gram) cream 1 g vaginal DAILY Qty: 42.5 2RF Patient Comments: takes mon, wed and fri Rx Instructions: local application daily for one week and then 3 times per week famotidine 20 mg tablet 20 mg PO QHS Qty: 90 3RF ondansetron HCl 4 mg tablet 4 mg PO Q8H PRN (Reason: nausea and vomiting) Qty: 14 0RF Rx Instructions: Take 15-20 min prior to antibiotics albuterol sulfate 90 mcg/actuation HFA aerosol inhaler 1 - 2 inh IH Q6H PRN (Reason: shortness of breath or wheezing) Qty: 8.5 6RF Thermotabs 287-180-15 mg tablet See Rx Instructions PO QID Rx Instructions: 2 tabs QAM, 3 tabs QPM Blink Tears 0.25 % drops 1 drp ophthalmic (eye) DAILY aspirin 81 mg Tablet,Delayed Release (Dr/Ec) 81 mg PO DAILY Qty: 0 0RF Discontinued simvastatin 5 mg tablet 5 mg PO DAILY Qty: 90 3RF No Action (DME) Aerochamber MV Spacer See Rx Instructions .Route Qty: 1 0RF Rx Instructions: As directed ondansetron 4 mg tablet,disintegrating 4 mg PO Q8H PRNQty: 7 0RF Discharge Instructions Instructions: Urinary tract infections in adults, Transient ischemic attack, Atorvastatin, Clopidogrel Additional Instructions: You have experienced a Transient Ischemic Attack (TIA), a temporary blockage of blood flow to part of your brain. An MRI showed no signs of a permanent stroke, which is good news. However, it?s important to take steps to reduce the risk of a future event and to continue following up with your healthcare provider. 1. Medication: * Atorvastatin 80 mg: Take one 80 mg tablet every night before bed. This medication helps reduce cholesterol and the risk of future strokes. It's crucial to take it as prescribed to manage your cholesterol levels. * Possible side effects: Muscle pain, weakness, or liver changes. If you experience unexplained muscle tenderness, weakness, or dark urine, contact your healthcare provider immediately. * Do not stop the medication without consulting your doctor. Clopidogril 75 mg: Take one tablet once a day. It can be taken with or without food, at the same time each day. Missed Dose: * If you miss a dose, take it as soon as you remember. * If it's almost time for your next dose, skip the missed one. Do not double dose. Side Effects: * Common: Bruising, bleeding more easily. * Serious: Unusual bleeding (gums, nose), signs of stroke (numbness, weakness), black/bloody stools, or vomiting blood?seek immediate medical help. Alcohol: * Limit alcohol to reduce bleeding risk. Emergency: * If you experience severe bleeding or signs of a stroke, call 911 immediately. Surgery/Dental Work: * Inform your doctor or dentist that you're taking Clopidogrel before any procedures. Medication Interactions: * Avoid taking other blood thinners or NSAIDs (e.g., ibuprofen) without consulting your primary care provider. 2. Follow-up Appointments: * A follow-up appointment has been scheduled with your doctor tto evaluate your condition and discuss ways to reduce your risk of another TIA or stroke. * Discuss your blood pressure, cholesterol levels, and other risk factors with your provider to help guide your treatment plan. 3. Recognize the Warning Signs of Stroke or TIA: Even though you had an MRI with no stroke, it?s important to be vigilant. If you experience any of the following symptoms, seek emergency medical care immediately: * Sudden numbness or weakness, especially on one side of the body * Sudden confusion, trouble speaking, or difficulty understanding speech * Sudden vision changes in one or both eyes * Sudden trouble walking, dizziness, or loss of coordination 4. Additional Medications: * Take all prescribed medications as directed, especially if they include blood pressure or blood thinning medications. These can help prevent future strokes or TIAs. 5. Emergency Contacts: * If you have any concerns or notice sudden changes in your health, don't hesitate to contact your healthcare provider. If you experience any of the warning signs of a stroke or TIA, call emergency services immediately. Remember, while a TIA is a warning, following these guidelines can significantly reduce your chances of having another event. Continue to manage your health and stay in contact with your healthcare team. You have also been diagnosed with a urinary tract infection (UTI). UTIs are common infections that affect the urinary system, including the bladder and urethra. With the right treatment, most people recover fully without complications. 1. Medications: * Antibiotics: While hospitalized you were given antibiotics to treat the infection. You have completed the course and no longer have to take any antibiotics. 2. Hydration: * Drink plenty of fluids: Aim for at least 8 cups of water a day to help flush bacteria out of your urinary system. * Avoid caffeinated beverages, alcohol, and acidic drinks (like citrus juices) until your symptoms improve, as they can irritate the bladder. 3. Personal Hygiene: * Wipe front to back: When using the restroom, always wipe from front to back to prevent the spread of bacteria from the rectum to the urinary tract. * Urinate frequently: Don?t hold your urine for long periods of time. Empty your bladder regularly, especially after sexual activity. * Avoid irritating products: Avoid using scented soaps, douches, or feminine hygiene sprays, as they can irritate the urinary tract. 4. Follow-up Appointments: * A follow-up appointment has been scheduled with your healthcare provider. 5. Symptoms to Watch For: If you experience any of the following symptoms, seek medical attention immediately: * Severe back or side pain * Fever (greater than 101?F or 38.3?C) * Chills or shaking * Nausea or vomiting * Blood in the urine or dark, foul-smelling urine These symptoms may indicate the infection has spread to your kidneys, which requires prompt medical treatment. If your symptoms don?t improve or if they worsen despite treatment, contact your healthcare provider right away. UTIs are typically easy to treat, but if left untreated, they can cause serious complications, including kidney infections. You will benefit from home health Physical Therapy services; home health will call you to arrange an appointment to see you in your home. Stand Alone Forms: Nursing Discharge Form Referrals: Jason Huff NP [Primary Care Provider, Medicine] Referral Note: The office has your information and will call you to set up a hospital follow up within 7-10 days. Follow up in-patient after TIA - MRI negative for stroke. Started on Atorvastatin 80 mg qHS and Clopidogrel for 21 days - per recommendation of [facility] neurology. A1c and Lipid panel drawn, pending on dc. Activity:: Activity as Tolerated Equipment/Supplies:: No Equipment Needed Diet:: As Tolerated Discharge Orders Discharge Orders: Discharge Order (Routine); Ordered 09/13/24 Ordered By: Eliana Cuevas DS: Summary Time Spent with Patient providing and/or coordinating discharge services: Greater than 30 minutes Status at Discharge Functional status at discharge: uses cane/walker Overall status at discharge: patient is back to baseline Mental Status: mental status grossly normal Speech and Movement: speech and movement normal Mood: congruent mood Affect: normal affect Quality:SDOH Health Related Social Needs: Health related social needs lonely/isolated Exam Narrative Exam Narrative: * Mental status: Alert, oriented to person and place * Speech: Fluent with mild word-finding difficulty * Cranial nerves: II?XII grossly intact * Motor: 5/5 strength in all extremities * Sensory: Intact to light touch * Reflexes: Symmetric * Coordination: No dysmetria * Gait: Ambulates with walker; does not loose balance * No pronator drift, no facial droop observed during exam Cardiovascular: * Regular rate and rhythm * No murmurs or gallops * Peripheral pulses intact and symmetric Pulmonary: * Clear to auscultation bilaterally * No wheezes, rales, or rhonchi Abdomen: * Soft, non-tender * No guarding or rebound * Bowel sounds present Skin: * Warm, dry * No rash or breakdown Psych Mental Status: mental status grossly normal Speech and Movement: speech and movement normal Mood: congruent mood Affect: normal affect DS: Data Vitals/I&O Vitals and I&O: Vital Signs Temperature 36.4 C L 09/13/24 11:40 Temperature Source Temporal Artery Scan 09/13/24 11:40 Pulse 60 09/13/24 11:40 Pulse Rhythm Regular 09/10/24 23:49 Pulse 58 L 09/10/24 23:00 Respiratory Rate 18 09/13/24 04:59 Respiratory Effort Normal, Non-Labored 09/10/24 23:49 Respiratory Depth Normal 09/10/24 23:49 Respiratory Pattern Normal 09/10/24 23:49 Blood Pressure 145/57 H 09/13/24 11:40 Blood Pressure Mean 86 09/13/24 11:40 Pulse Oximetry 99 09/13/24 11:40 Oxygen Delivery Method Room Air 09/13/24 11:40 Oxygen Flow Rate 0 09/13/24 11:40 Pain Level 0 09/13/24 04:59 Comment RN Notified 09/13/24 11:40 Intake & Output 09/12/24 09/13/24 09/13/24 23:59 11:59 23:59 Intake Total 620 / 790 100 / 100 Output Total 100 / 100 Balance 520 / 690 100 / 100 Weight 45.8 kg Intake: IV 100 / 100 Oral 620 / 740 Output: Urine 100 / 100 Other: Urine Color Yellow Data Completed and Pending Labs on day of discharge: Labs from last 24 hours 09/13/24 Unknown Add-On Test Request Pending [facility] All Active Problems (Updated 09/13/24 @ 11:54 by Eliana Cuevas NP) Urinary tract infection (Acute) COPD (chronic obstructive pulmonary disease) (Chronic) Transient ischemic attack (Acute) Dysthymia (Acute) Chronic abdominal pain (Acute) HTN (hypertension) (Chronic) Frailty syndrome in geriatric patient (Chronic) Urinary incontinence (Chronic) SIADH (syndrome of inappropriate ADH production) (Chronic) Generalized weakness (Chronic) Constipation (Chronic) Serrated adenoma of colon (Chronic ~07/18/22) Dermatitis (Chronic) Anemia (Chronic) Pulmonary nodules (Chronic) 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 NO feeding tube Medical History Pancreatitis COPD exacerbation Palliative care patient Palliative care is happy to urgently consult on this patient in ED and help with decisions needed at the time if staffing available. LUQ abdominal pain Neck pain on right side New daily persistent headache wakes up with, gone by noon, pain radiates to right side of neck Bacterial vaginosis Constipation Abnormal weight loss Recurrent pneumonia Pneumonia involving right lung Pancytopenia, acquired Brain TIA Uterine prolapse Stage 3 Advanced care planning/counseling discussion Shingles Perforated diverticulum Hyponatremia Multiple occasions last of which was 01/2021, 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 Elevated urine sodium with episode of hyponatremia evaluated at [facility] 2019 GERD with esophagitis Erosive gastritis Pancreatitis Macular degeneration Hx of fracture of pelvis pt. 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 intestinal meta. or dysplasia Essential hypertension (01/14/13) Depressive disorder Atrophic vaginitis (08/19/11) Pt. states she is unsure Family history of GI malignancy Surgical History Cortical age-related cataract, left eye Nuclear age-related cataract, left eye Cortical age-related cataract, right eye Nuclear age-related cataract, right eye H/O sigmoidoscopy (~07/18/22) KNEE SURGERY (~05/2012) Abdominal hysterectomy EGD - MAC (04/22/17) Colonoscopy - MAC (04/22/17) Colonoscopy - MAC (~02/2012) Cholecystectomy Bladder Surgery Bilateral salpingectomy with oophorectomy Arthroplasty of knee (05/27/12) LEFT - Pt denies knee replacement Family History Mother , AGE 84 Heart disease Father , AGE 87 Stroke Heart disease Cancer Sister Stroke Brother Alcohol abuse Cancer Brother Cancer of kidney Son Hyperlipidemia Pulmonary disease Daughter Thyroid disease Daughter Cancer s/p hysterectomy Daughter No problems noted. Daughter No problems noted. Brother No problems noted. Maternal Grandfather No problems noted. Paternal Grandfather No problems noted. Maternal Grandmother No problems noted. Paternal Grandfather No problems noted. Social History Smoking/Tobacco Use Status: Former Tobacco Use tobacco type: cigarettes Quit Date: 03/17/97 Second Hand Exposure: Yes Smoking risk assessment performed?: Yes Alcohol Intake: never Drug use: Never Substance use type: does not use Adopted: No Caregiver/Support person: Yes (both boxes checked) Housing: house Number of Children: 5 Communication Needs: Hard of Hearing and Corrective Lenses Education Level: high school Do you need help understanding health information?: Always current occupation: none Pets and animals: No Sexually active: No Do you think of yourself as: straight/heterosexual Current gender identity: female What is your relationship status?: How often do you talk on the phone with friends or family?: decline to answer How often do you get together with friends or relatives?: decline to answer How often do you attend mandaeism or yazidi services?: decline to answer Do you belong to any clubs or organized social groups?: no Panel score (0-1 are the most socially isolated patients): 0 What type of physical activity do you participate in: walking Carri/Religious: No preference Special carri needs: No Seatbelt use: always Helmet use: No Drive intox 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
--- NOTE | 2024-09-13 12:40 | PDOC.CMDIS ---
Date of service: 09/13/24 Time of Service: 12:40 LACE Index Scoring Tool Questions: Length of Stay (in days): 3 Was the patient admitted via the E.D.?: Yes Comorbidities: Chronic Pulmonary Disease E.D. Visits: 6 Answers: Total Score: 12 Risk of Readmission: High Risk Care Management Discharge Plan Reason for Hospitalization: TIA Discharge Plan: Discharge home with new [facility] RN,PT,OT,[facility] services via private vehicle with family. Follow up with community providers and her discharge plan of care as directed. Patient/Family Education Needs: Review discharge instructions and plan to follow up after discharge. Discuss ask me three. Services Needed at Discharge: Home Health Care Services (New [facility] RN/PT/OT/[facility]) SDOH Health Related Social Needs: Health related social needs lonely/isolated
[2024-09-13 12:56] LABS: Lab Add On Test DONE
--- NOTE | 2024-09-13 13:11 | PDOC.HHF2F_ITS ---
Home Health Referral Home Health Orders Clinical synopsis of why skilled professionals are needed: TIA: 89-year-old female presented with acute right-hand weakness and expressive aphasia. Symptoms resolved in the ED. CT head/neck was negative. Teleneurology recommended Plavix 300 mg loading dose followed by Plavix 75 mg daily for 21 days + aspirin 81 mg daily. MRI brain was unrevealing; echocardiogram showed EF 55%, no wall motion abnormalities. Dual antiplatelet therapy initiated with close monitoring. Atorvastatin 80 mg started. No further events during hospitalization. UTI: Incidental finding: UA positive; treated initially with IV Rocephin. No fever or leukocytosis. Converted to oral antibiotics prior to discharge pending culture results. No urinary symptoms reported. HTN: BP >200 systolic on admission. Patient on metoprolol, which was split into BID dosing. Sherwood?s Esophagus: Chronic condition managed with outpatient famotidine. No new GI complaints. COPD: Stable. Continued home inhaler therapy. No exacerbation during hospitalization. DISCHARGE MEDICATIONS * Plavix (clopidogrel) 75 mg daily ? 21 days (discontinue after) * Aspirin 81 mg daily * Atorvastatin 80 mg nightly * Famotidine as previously prescribed * Metoprolol (split dose) * Albuterol inhaler PRN (for COPD) DISPOSITION * Home with son, who provides supervision * Home Health Services PT ordered per their recommendation. FOLLOW-UP * PCP: Within 1 week * Teleneurology or stroke clinic: As needed * MRI Brain: Completed during hospitalization (negative) * Echocardiogram: Completed, EF 55%, no WMA * Consider follow-up GI and pulmonary based on chronic diagnoses CODE STATUS * DNR/DNI, per prior COLST dated 07/29/2024 Medical diagnosis necessitation home health referral: TIA Physical Therapist: Check all that apply Increase strength & endurance for safe mobility at home: Ordered To design/establish home maintenance program: Ordered Fall reduction therapy program for patient with history of frequent falls: Ordered Home safety evaluation and teaching/gait training including stair management (if applicable): Ordered Occupational Therapist: Evaluate and treat for patient unable to perform ADL/IADL/self-care: Ordered Spiritual Advisor: Assist with community resources: Ordered Assist with medical terminologist care planning: Ordered Home Bound Status Requires the aid of supportive device (check all that apply): Walker Assistance of another person (Describe assistance and medical necessity): Unsteady currently and requires one person stand by to ambulate safely. Describe why leaving home would require a considerable and taxing effort: Requires frequent rest periods Encounter Date and Reason: I certify that a FTF encounter for this patient was performed on September 13, 2024 and that such encounter was related to the primary reason the patient requires home health services. The encounter was conducted in the following manner: * By me as the certifying physician, SPRAY PILOT, PA or * By an inpatient physician, SPRAY PILOT or PA during an inpatient stay who communicated findings to me, Certification And Authentication I certify that I composed the above information based on my clinical judgment r elating to this patient's medical condition and, if applicable, clinical findings communicated to me by the NPP or inpatient physician who performed the FTF encounter. Name of Provider that will be monitoring home health services: Jason Busby
--- NOTE | 2024-09-13 13:38 | OTIE_ITS ---
Occupational Therapy Notes Inpatient Occupational Therapy Evaluation Date: 09/13/24 Referring Doctor: Dr. Newsome OT Orders/Precautions: Urgent, Fall, Standard, DNR/DNI PATIENT PROFILE/ADMITTING DIAGNOSIS: Pt is a 89 year old female who was admitted to Med Surg with a dx of UTI, COPD, transient ischemic attack, dysthymia, chronic abdominal pain, HTN, generalized weakness and constipation. 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 NO feeding tube Medical History Pancreatitis COPD exacerbation Palliative care patient Palliative care is happy to urgently consult on this patient in ED and help with decisions needed at the time if staffing available.LUQ abdominal pain Neck pain on right side New daily persistent headache wakes up with, gone by noon, pain radiates to right side of neckBacterial vaginosis Constipation Abnormal weight loss Recurrent pneumonia Pneumonia involving right lung Pancytopenia, acquired Brain TIA Uterine prolapse Stage 3Advanced care planning/counseling discussion Shingles Perforated diverticulum Hyponatremia Multiple occasions last of which was 01/2021, 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 Elevated urine sodium with episode of hyponatremia evaluated at [facility] 2020GERD with esophagitis Erosive gastritis Pancreatitis Macular degeneration Hx of fracture of pelvis pt. 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 intestinal meta. or dysplasia Essential hypertension (01/14/13) Depressive disorder Atrophic vaginitis (08/19/11) Pt. states she is unsure Family history of GI malignancy Surgical History Cortical age-related cataract, left eye Nuclear age-related cataract, left eye Cortical age-related cataract, right eye Nuclear age-related cataract, right eye H/O sigmoidoscopy (~07/18/22) KNEE SURGERY (~05/2012) Abdominal hysterectomy EGD - MAC (04/22/17) Colonoscopy - MAC (04/22/17) Colonoscopy - MAC (~02/2012) Cholecystectomy Bladder Surgery Bilateral salpingectomy with oophorectomy Arthroplasty of knee (05/27/12) LEFT - Pt denies knee replacement Social History/Home Situation: Lives with her son, (I) with ADL/IADL routines, she does like to be as (I) as possible. Not currently driving but states that her son (A) her with her needs for appts. Equipment owned/DME: [employer], [employer] crutches SUBJECTIVE: Pt was sitting in bed when OT arrive and was agreeable to OT consult. OBJECTIVE: General Observation: Pleasant, IV in (R) UE elbow, difficulty with word finding Mental Status: A&Ox4 Pain: N/A ROM: RUE AROM WFL L UE AROM WFL STRENGTH: RUE 5/5 throughout LUE 5/5 throughout globally FUNCTIONAL MOBILITY/ADLS: BATHING max (A) set up/clean up, sitting in bed Bathing UE (I) Bathing LE NT DRESSING sitting in bed Dressing UE (I) with don and doffing shirt and buttons Dressing LE (I) with don and doffing pants GROOMING (I) with brushing hair TOILETING (I) on toilet EATING (I) with ideal hand to mouth, able to picking supervisor cups (I) with (B) UE BALANCE: Static sitting Normal Dynamic Sitting Normal Static Standing Normal Dynamic Standing Normal SPECIAL TESTS: Daily Activity Limitations Standardized Measure [facility] AM -PAC ?6 clicks? Daily Activity Inpatient Short Form: Raw score: 23 Standardized score: 51.12 CMS score: 15.86% INFORMED CONSENT/EDUCATION: Pt instructed in purpose of OT Consult and plan of care. ASSESSMENT: Patient is a 89-year-old female referred to occupational therapy services with diagnosis of Transient ischemic attack. Patient presents with clinical signs and symptoms consistent with dx, as demonstrated by the following impairment level findings/functional limitations: Impairments in gross and fine motor, delay in execiutive planning and slight delay in task initiation/word finding. AMPAC score 23 Patient is assessed as a Low 08851 complexity based on the following: History: see above Examination: see functional limitations as noted above Presentation: evolving Decision Making: AMPAC score 23 GOALS N/A seen for OT consult only. PLAN OF CARE/TREATMENT PLAN: Seen for OT consult, sdischarge from skilled OT services at this time. DISCHARGE RECOMMENDATIONS HH with services to (A) pt in the home setting and need for adaptive equipment in the home setting to promote increased (I) with her ADL/IADL routines. OT also recommends that pt follow up with Speech Therapist for further consult of cognitive symptoms and executive planning. TREATMENT TIME/MINUTES/CODES [id number], [id number], 18 minutes YOBANI Mohan/[facility] [place], [place]
[2024-09-13 13:53] LABS: Hemoglobin A1C 5.7 % (<5.7)
[2024-09-13 14:01] LABS: Calculated LDL 60 mg/dL (<100); Cholesterol 135 mg/dL (<200); HDL Cholesterol 65 mg/dL (>or=50); Triglyceride 54 mg/dL (<150)
== END 2024-09-13 14:18 | disposition home health service (06) | DRG 69 ==
LOC: ER 22:12 → MS 23:31
PROVIDERS: Admitting Provider Family Medicine; Emergency Provider Physician Assistant; PCP Nurse Practitioner Family; Responsible Provider Nurse Practitioner Family; Visit Provider Family Medicine
DX: G45.9 Transient cerebral ischemic attack, unspecified (principal); N30.00 Acute cystitis without hematuria; I10 Essential (primary) hypertension; K22.70 Barrett's esophagus without dysplasia; E78.5 Hyperlipidemia, unspecified; F32.A Depression, unspecified; K21.9 Gastro-esophageal reflux disease without esophagitis; Z66 Do not resuscitate; J44.9 Chronic obstructive pulmonary disease, unspecified; E22.2 Syndrome of inappropriate secretion of antidiuretic hormone; Z68.1 Body mass index [BMI] 19.9 or less, adult; R47.01 Aphasia; G83.21 Monoplegia of upper limb affecting right dominant side; G89.29 Other chronic pain; R54 Age-related physical debility; K59.00 Constipation, unspecified; D64.9 Anemia, unspecified; R91.8 Other nonspecific abnormal finding of lung field; Z86.73 Personal history of transient ischemic attack (TIA), and cerebral infarction without residual deficits; R63.4 Abnormal weight loss; R51.9 Headache, unspecified; Z87.891 Personal history of nicotine dependence; Z80.0 Family history of malignant neoplasm of digestive organs; K21.00 Gastro-esophageal reflux disease with esophagitis, without bleeding; N39.46 Mixed incontinence; B96.1 Klebsiella pneumoniae [K. pneumoniae] as the cause of diseases classified elsewhere
CPT/HCPCS: 00123; 36415; 70496; 70498; 80053; 80061; 85027; 87077; 87637; 93005; 97110; 97162; 97165; 97530; 97535; 99285; J1650; 70551; 71045; 81003; 81015; 82140; 83036; 83605; 83735; 84443; 84484; 85025; 87086; 87186; 93010; 93306; 99223; 99233; 99239; J0696; J3490

== ENCOUNTER → 2024-09-21 10:43 | Outpatient (BNVA) | payer MEDICARE, SELFPAY | PROVIDERS: PCP Nurse Practitioner Family; Referring Provider Nurse Practitioner Family; Visit Provider Nurse Practitioner Gerontology | DX: N39.41 Urge incontinence (principal); N39.0 Urinary tract infection, site not specified; R39.9 Unspecified symptoms and signs involving the genitourinary system | CPT/HCPCS: 99215; 81002; 51798 ==

== ENCOUNTER 2024-12-15 12:26 | Outpatient (REF) | payer MEDICARE, SELFPAY ==
[2024-12-15 17:40] LABS: Glucose Negative (Negative)
[2024-12-15 17:46] LABS: RBC Negative HPF (0-2); WBC >50 HPF (0-5)
[2024-12-15 17:47] LABS: C & S Indicated? Yes
== END 2024-12-15 12:27 | disposition home or self-care (01) ==
LOC: LBN 12:26
PROVIDERS: PCP Nurse Practitioner Family; Visit Provider Nurse Practitioner Family
DX: N39.0 Urinary tract infection, site not specified (principal)
CPT/HCPCS: 87077; 81003; 81015; 87086; 87186

== ENCOUNTER 2024-12-15 13:43 | Outpatient (CLI) | payer MEDICARE, SELFPAY ==
--- NOTE | 2024-12-15 13:15 | DI.RAD_ITS ---
Exam(s) XR LUMBAR SPINE COMPLETE EXAM: XR LUMBAR SPINE COMPLETE CLINICAL HISTORY: run over by a tractor 40 years ago, new low back pain,m54.50. TECHNIQUE: 2D digital imaging was performed. COMPARISON: No exams were available for comparison FINDINGS: Six views There is age-related osteopenia. No fractures nor listhesis. There is moderate disc space narrowing at L2-3 level and mild disc space narrowing at L3-4. There is moderate multilevel facet arthropathy in the mid-lower lumbar spine. No osseous lesions. IMPRESSION: Osteopenia. No fractures nor significant listhesis. Some disc space narrowing as described above. DATA REPOSITORY: RADIATION DOSE DELIVERED:
--- NOTE | 2024-12-15 13:15 | DI.RAD_ITS ---
Exam(s) XR ABDOMEN FLAT UPRIGHT EXAM: XR ABDOMEN FLAT UPRIGHT CLINICAL HISTORY: worsening pain in abd,constipation,k59.00,r10.9. TECHNIQUE: 2D digital imaging was performed. COMPARISON: Prior x-ray 03/05/2023 FINDINGS: 3 views There is metallic fusion hardware across the pubic rami again noted. No fractures evident within the field of view of this study. Visualized lung bases are clear. Clips in the right upper quadrant from prior cholecystectomy are again noted. Bowel gas pattern is nonspecific. There are air-filled but nondilated small bowel loops. No evidence of bowel obstruction. No free air evident. No obvious bowel wall edema. Moderate amount of fecal material noted in the rectum. IMPRESSION: Previous cholecystectomy. No bowel obstruction or free air. DATA REPOSITORY: RADIATION DOSE DELIVERED:
== END 2024-12-15 14:03 ==
LOC: DI 13:45
PROVIDERS: PCP Nurse Practitioner Family; Visit Provider Nurse Practitioner Family
DX: K59.00 Constipation, unspecified (principal); M85.89 Other specified disorders of bone density and structure, multiple sites
CPT/HCPCS: 72110; 74019

== ENCOUNTER 2025-01-06 11:08 | Outpatient (REF) | payer MEDICARE, SELFPAY ==
[2025-01-06 14:50] LABS: Glucose Negative (Negative)
[2025-01-06 15:06] LABS: RBC 0-2 HPF (0-2)
== END 2025-01-06 11:09 | disposition home or self-care (01) ==
LOC: LBN 11:08
PROVIDERS: PCP Nurse Practitioner Family; Visit Provider Physician Assistant
DX: R39.9 Unspecified symptoms and signs involving the genitourinary system (principal)
CPT/HCPCS: 87077; 81003; 81015; 87086; 87186

== ENCOUNTER 2025-01-11 12:50 | Outpatient (REF) | payer MEDICARE, SELFPAY | END 2025-01-11 12:51 | disposition home or self-care (01) | LOC: LBN 12:50 | PROVIDERS: PCP Nurse Practitioner Family; Visit Provider Physician Assistant | DX: R30.0 Dysuria (principal) | CPT/HCPCS: 87077; 87086; 87186 ==

== ENCOUNTER 2025-02-02 11:03 | Outpatient (CLI) | payer MEDICARE, SELFPAY ==
--- NOTE | 2025-02-02 11:00 | RT.EKG_ITS ---
APPROVED REPORT Exam: Resting ECG Reason for Exam: UTI Patient Location: O HR:62 bpm ECG Measurements Heart Rate 62 AXIS NC 191 P 49 QRSd 81 QRS 59 QT 413 T 45 QTc 420 Conclusion Sinus rhythm...normal P axis, V-rate 50- 99 Left atrial enlargement...P, P'>60mS, <-0.15mV V1 Otherwise normal ECG
== END 2025-02-02 11:04 | disposition home or self-care (01) ==
LOC: DI.CM 11:03
PROVIDERS: PCP Nurse Practitioner Family; Visit Provider Nurse Practitioner Family
DX: N39.0 Urinary tract infection, site not specified (principal); R60.9 Edema, unspecified; I51.7 Cardiomegaly
CPT/HCPCS: 93010

== ENCOUNTER 2025-02-02 11:14 | Outpatient (CLI) | payer MEDICARE, SELFPAY ==
[2025-02-02 12:08] LABS: Abs Immature Grans 0.03 10^3/uL (0.0-0.06); HCT 34.2 % (36.0-46.0); HGB 11.1 g/dL (11.2-15.7); Immature Grans % 0.5 %; MCH 29.6 pg (27.0-33.0); MCHC 32.5 % (32.0-36.0); MCV 91 fL (80-95); MPV 10.0 fL (8.0-11.0); Platelet Count 152 10^3/uL (130-400); RBC 3.75 10^6/uL (3.93-5.22); RDW 13.4 % (11.7-14.6); RDW-SD 45.0 fL; WBC 5.54 10^3/uL (4.4-10.8)
[2025-02-02 12:40] LABS: D-Dimer 1063 ng/mlFEU (<500)
[2025-02-02 13:38] LABS: ALT 32 U/L (10-49); AST 35 U/L (<34); Albumin 4.1 g/dL (3.4-5.0); Alkaline Phosphatase 120 U/L (46-116); Anion Gap 4.1 mmol/L (3-11); BUN 23 mg/dL (9-23); Bilirubin, Total 0.70 mg/dL (0.2-1.2); CO2 32.1 mmol/L (20.0-31.0); Calcium 8.9 mg/dL (8.3-10.6); Chloride 97 mmol/L (98-107); Glucose 95 mg/dL (74-106); Potassium 4.5 mmol/L (3.5-5.1); Sodium 133 mmol/L (136-145); Total Protein 6.5 g/dL (5.7-8.2)
== END 2025-02-02 11:15 | disposition home or self-care (01) ==
LOC: LOS 11:14
PROVIDERS: PCP Nurse Practitioner Family; Visit Provider Nurse Practitioner Family
DX: M79.89 Other specified soft tissue disorders (principal); R06.00 Dyspnea, unspecified
CPT/HCPCS: 36415; 80053; 83880; 85025; 85379

== ENCOUNTER 2025-02-02 14:41 | Outpatient (REF) | payer MEDICARE, SELFPAY | END 2025-02-02 14:42 | disposition home or self-care (01) | LOC: LBN 14:41 | PROVIDERS: PCP Nurse Practitioner Family; Visit Provider Nurse Practitioner Family | DX: N39.0 Urinary tract infection, site not specified (principal) | CPT/HCPCS: 87077; 87086; 87186 ==

== ENCOUNTER → 2025-02-04 02:47 | Outpatient (CLI) | payer MEDICARE, SELFPAY ==
--- NOTE | 2025-02-04 07:30 | DI.US_ITS ---
Exam(s) US LOWER EXTREMITY VENOUS RT EXAM: US LOWER EXTREMITY VENOUS RT CLINICAL HISTORY: ? DVT,SWELLING RT LOWER EXTREMITY,M79.78. TECHNIQUE: Lower extremity venous ultrasound performed using grayscale, color- flow, and spectral Doppler analysis. COMPARISON: No exams were available for comparison FINDINGS: The common femoral, femoral and popliteal veins demonstrate normal compressibility, augmentation, and color Doppler. The posterior tibial and peroneal veins are patent. No saphenous vein thrombosis or other superficial venous thrombosis is seen. No hematoma or Hanks's cyst is seen. There is edema in the subcutaneous fat of the lower leg. IMPRESSION: Lower leg edema. No evidence of DVT. DATA REPOSITORY:
--- NOTE | 2025-02-04 07:30 | DI.RAD_ITS ---
Exam(s) XR CHEST 2V PA LATERAL EXAM: XR CHEST 2V PA LATERAL CLINICAL HISTORY: ? HF,DYSPNEA,R06.00 TECHNIQUE: 2D digital imaging was performed. Two views. COMPARISON: CT CT CHEST PE CTA from 04/28/2023 CR,XR XR CHEST 2V PA LATERAL from 05/23/[address] ABDOMEN PELVIS CTA from 05/23/2024 CR,XR XR CHEST 1V IN DI DEPT from 09/10/2024 FINDINGS: HEART: Normal size. Aorta: Not dilated. PULMONARY VASCULATURE: Normal. MEDIASTINUM: Unremarkable. LUNGS: No evidence of infiltrate or CHF. Chronic interstitial changes. PLEURAL SPACE: No pleural effusion or pneumothorax. BONE:Unremarkable for age. SOFT TISSUES: Unremarkable. IMPRESSION: No acute abnormality. DATA REPOSITORY: RADIATION DOSE DELIVERED:
== END ==
LOC: DI 02:47
PROVIDERS: PCP Nurse Practitioner Family; Visit Provider Nurse Practitioner Family
DX: R06.00 Dyspnea, unspecified (principal); M79.89 Other specified soft tissue disorders
CPT/HCPCS: 71046; 93971

== ENCOUNTER → 2025-02-18 00:27 | Outpatient (CLI) | payer MEDICARE, SELFPAY ==
--- NOTE | 2025-02-18 13:04 | DI.US_ITS ---
APPROVED REPORT EXAM: Comprehensive 2D, Doppler, and color-flow Echocardiogram Patient Location: Out-Patient Sql Developer Dba: Ayleen Durham RDCS (AE) Indications: Dyspnea, LE edema Other Information Study Quality: Good Conclusion Normal left ventricular wall thickness and chamber size. EF is 55 to 60%. Wall motion is normal Normal right ventricular size and function Both atria are normal in size There are no structural valvular abnormalities Trace aortic regurgitation. Trace to mild mitral and tricuspid regurgitation Estimated right ventricular systolic pressure is 34 mmHg Wall motion Left Ventricle The left ventricle is normal size. The left ventricular systolic function is normal. The left ventricular ejection fraction is within the normal range. There is normal left ventricular wall thickness. There is normal LV segmental wall motion. There is no ventricular septal defect visualized. LVEF is 55-60%. Right Ventricle The right ventricle is normal size. The right ventricular systolic function is normal. Atria The left atrium size is normal. The right atrium size is normal. The interatrial septum is intact with no evidence for an atrial septal defect. Aortic Valve The aortic valve is normal in structure. Aortic valve is trileaflet. There is no aortic valvular stenosis. Trace aortic regurgitation. Mitral Valve The mitral valve is normal in structure. No evidence of mitral valve stenosis. Trace to mild mitral regurgitation. Tricuspid Valve The tricuspid valve is normal in structure. There is no tricuspid valve stenosis. Trace to mild tricuspid regurgitation. The RVSP is 34.6 mmHg. Pulmonic Valve The pulmonary valve is normal in structure. There is no pulmonic valvular stenosis. Trace to mild pulmonic regurgitation. Great Vessels The aortic root is normal in size. The ascending aorta is normal in size. Aortic arch is not well visualized. IVC is normal in size and collapses >50% with inspiration. Pericardium There is no pericardial effusion. 2D Dimensions IVSD d PLAX 0.84 cm F: 0.6-1.0 Ao Root d 2.85 cm F: 2.7 - 3.3 LVPW d PLAX 0.80 cm F: 0.6 - 1.0 Ao Asc Diam d 3.13 cm F: 2.3 - 3.1 LVID d PLAX 3.80 cm F: 3.8 - 5.2 LVDs 2.60 cm F: 2.2 - 3.5 LV EF Teichholz 60.2 % FS 31.49 % LV EDV (Teich) 61.9 mL LV ESV (Teich) 24.7 mL M-Mode TAPSE 2.51 cm (M/F) >1.7 Auto EF LV EDV A4C 64.7 mL LV EDV A2C 69.5 mL LV EDV BP 67.7 mL LV ESV A4C 29.4 mL LV ESV A2C 28.6 mL LV ESV BP 29.5 mL LVEF(%) A4C 54.6 % LVEF(%) A2C 58.8 % LVEF(%) BP 56.4 % LV SV A4C 35.4 ml LV SV A2C 40.9 ml LV SV BP 38.2 ml LV CO A4C 2.3 L/min LV CO A2C 2.7 L/min LV CO BP 2.5 L/min HR A4C 63.94 BPM HR A2C 65.34 BPM LV EDV Index (BP) LA Volume LA Length A4C 4.4 cm LA Length A2C 4.9 cm LA Area A4C s 13.82 cm2 LA Area A2C s 12.02 cm2 LA Vol A4C A-L 36.77 mL LA Vol A2C A-L 25.06 mL LA Vol Biplane A-L 32.0 mL LA Vol/BSA A4C A-L LA Vol/BSA A2C A-L LA Vol/BSA BP A-L 21.5 mL/m2 LA Vol A4C MOD 34.0 mL LA Vol A2C MOD 23.6 mL LA Vol BP MOD 29.8 mL RA Volume RA Area A4C 12.4 cm2 RA ESV A4C (A-L) 31.8mL RA Vol/BSA A4C A-L RA Length A4C 4.1 cm RA ESV A4C (MOD) 28.8mL LV Diastology MV E' medial 0.082 (>0.07 m/s) MV E Vmax 0.86 (0.4-1.3 m/s) MV E/E' MED 10.49 (<14) MV A Vmax 0.90 (0.4-1.3 m/s) MV E' lateral 0.077 (>0.1 m/s) E/A Ratio 1.0 MV E/E' LAT 11.22 (<14) MV E' Average 0.079 m/s MV E/E'(average) 10.85 Aortic Valve AoV Vmax 1.19 m/s LVOT Vmax 0.90 m/s AoV Peak Grad 30.0 mmHg LVOT Peak Grad 3.2 mmHg AoV Area (Vmax) 2.07 cm2 LVOT VTI 0.200 m AoV VTI 0.325 m LVOT Mean Grad 1.7 mmHg AoV Mean Freddy. 0.84 m/s LVOT SV 54.72 mL AoV Mean Grad 3.2 mmHg LVOT Diam s 1.85 cm AoV Area (VTI) 1.68 cm2 AV Regurg Peak Gr. 5.67 mmHg Velocity Ratio 0.76 AR Decel White 2.1m/sec2 AR DT 1739 msec AR PHT 504 msec AR Vmax 3.68 m/s Mitral Valve MV DT 145 (160-240 msec) MV Vmax TIPS 0.83 m/s MV Mean Grad 1.3 (<2mmHg) MV VTI 0.296 m Pulmonary Valve PV Vmax 0.86 (0.5-1.5 m/s) RVOT Vmax 0.51 m/s PV Peak Grad 3.0 mmHg RVOT Peak Gr. 1.0 mmHg PV Mean Freddy 0.53 m/s RVOT VTI 0.161 m PV Mean Grad 1.3 mmHg RVOT Mean Gr. 0.7 mmHg Tricuspid Valve RA Pressure 3.00 mmHg TR Vmax 2.81 m/s TV S' 0.15 m/s TR Peak Grad 31.5 mmHg RVSP (TR) 34.6 mmHg
== END ==
LOC: DI 00:27
PROVIDERS: PCP Nurse Practitioner Family; Visit Provider Nurse Practitioner Family
DX: R06.00 Dyspnea, unspecified (principal); M79.89 Other specified soft tissue disorders; R60.0 Localized edema
CPT/HCPCS: 93306

== ENCOUNTER 2025-03-15 14:57 | Outpatient (REF) | payer MEDICARE, SELFPAY | END 2025-03-15 14:58 | disposition home or self-care (01) | LOC: LBN 14:57 | PROVIDERS: PCP Nurse Practitioner Family; Visit Provider Physician Assistant Medical | DX: N39.0 Urinary tract infection, site not specified (principal) | CPT/HCPCS: 87077; 87086; 87186 ==

== ENCOUNTER 2025-03-16 12:10 | Outpatient (CLI) | payer MEDICARE, SELFPAY ==
[2025-03-16 14:21] LABS: Anion Gap 3.5 mmol/L (3-11); BUN 18 mg/dL (9-23); CO2 31.3 mmol/L (20.0-31.0); Calcium 8.0 mg/dL (8.3-10.6); Chloride 96 mmol/L (98-107); Glucose 109 mg/dL (74-106); Potassium 4.4 mmol/L (3.5-5.1); Sodium 131 mmol/L (136-145)
== END 2025-03-16 12:11 | disposition home or self-care (01) ==
LOC: LBO 12:10
PROVIDERS: PCP Nurse Practitioner Family; Visit Provider Nurse Practitioner Family
DX: E87.1 Hypo-osmolality and hyponatremia (principal)
CPT/HCPCS: 36415; 80048